=== PATIENT | male | born 1970 ===

== ENCOUNTER 2017-01-30 09:32 | Observation (INO) | payer MEDICARE, OTHER ==
[2017-01-30 09:33] VITALS: BMI 44.4
--- NOTE | 2017-01-30 10:23 | C.PDOC ---
History Of Present Illness PMHx of diastolic CHF, hyperlipidemia, HTN, alcoholic cirrhosis, schizophrenia and PV SEEN 01/22 @ [facility] S/P HEAD INJURY DUE TO INTOX. NEG MAXFAC AND HEAD CT. Time Seen by Provider: 01/30/17 10:22 Chief Complaint (Nursing): Eye Problem Past Medical History Vital Signs: Last Vital Signs Temp 98.5 F 01/30/17 09:37 Pulse 86 01/30/17 09:37 Resp 18 01/30/17 09:37 BP 126/94 H 01/30/17 09:37 Pulse Ox 98 01/30/17 10:23 - Medical History PMH: Anxiety, Asthma, Bipolar Disorder, CHF, COPD (ASTHMA), Depression, HTN, Schizophrenia Denies: Alzheimer's Disease, Arthritis, Atrial Fibrillation, Bronchitis, Cardia Arrhythmia, Dementia, Emphysema, Hypercholesterolemia, Hypothyroidism, Migraine, Mitral Valve Prolapse, Multiple Sclerosis, Parkinson's Disease, Peripheral Edema, Pneumonia, Pulmonary Embolism, Chronic Kidney Disease, Rheumatoid Arthritis, Seizures, Sleep Apnea, TIA Surgical History: Appendectomy Denies: Pacemaker - [facility] Procedures FLUOROSCOPY OF RIGHT JUGULAR VEINS, GUIDANCE (11/14/15) INSERT INFUSION DEV IN R INT JUGULAR VEIN, PERC (11/14/15) REMOVAL OF INFUSION DEVICE FROM UPPER VEIN, SUPERVISOR WARPING DEPARTMENT APPROACH (11/14/15) Family History: States: Unknown Family Hx - Social History Hx Tobacco Use: No Hx Alcohol Use: Yes Hx Substance Use: No - Immunization History Hx Tetanus Toxoid Vaccination: No Hx Influenza Vaccination: Yes Hx Pneumococcal Vaccination: No ED Course And Treatment O2 Sat by Pulse Oximetry: 98
[2017-01-30 10:55] LABS: BASO % 0.9 % (0.0-2.0); EOS # 0.1 K/uL (0.0-0.7); EOS % 1.7 % (0.0-4.0); HEMATOCRIT 39.3 % (35.0-51.0); LYMPH # 0.8 K/uL (1.0-4.3); LYMPH % 24.8 % (20.0-40.0); MEAN CELL VOLUME 88.5 fL (80.0-94.0); MEAN CORPUSCULAR HEMOGLOBIN 29.8 pg (27.0-31.0); MEAN CORPUSCULAR HGB CONC 33.7 g/dL (33.0-37.0); MONO # 0.9 K/uL (0.0-0.8); MONO % 25.8 % (0.0-10.0); NRBC % 0.1 % (0.0-2.0); PLATELET COUNT 114 K/uL (130-400); RED CELL DISTRIBUTION WIDTH 18.3 % (11.5-14.5); WHITE BLOOD COUNT 3.3 K/uL (4.8-10.8)
[2017-01-30 11:03] LABS: CHLORIDE 86 mmol/L (98-107); SODIUM 129 mmol/L (132-148)
[2017-01-30 11:05] LABS: GFR AFRICAN-AMERICAN > 60
[2017-01-30 11:06] LABS: ALB/GLOB RATIO 0.7 (1.0-2.1); ALKALINE PHOSPHATASE 164 U/L (38-126); ALT/SGPT 42 U/L (21-72); AST/SGOT 134 U/L (17-59); BILIRUBIN,TOTAL 4.8 mg/dL (0.2-1.3); BLOOD UREA NITROGEN 10 mg/dL (9-20); CARBON DIOXIDE 32 mmol/L (22-30); GLUCOSE,RANDOM 93 mg/dL (75-110); TOTAL PROTEIN 8.7 g/dL (6.3-8.3)
[2017-01-30 11:07] LABS: CALCIUM 7.6 mg/dl (8.6-10.4)
[2017-01-30 11:17] LABS: POTASSIUM 2.5 mmol/L (3.6-5.2)
[2017-01-30 11:26] LABS: EOSINOPHIL 1 % (0-4); NEUTROPHIL 45 % (50-75); TOTAL CELLS COUNTED 100
[2017-01-30 11:36] VITALS: RESP 20
--- NOTE | 2017-01-30 12:10 | CT ---
PROCEDURE: CT HEAD WITHOUT CONTRAST. HISTORY: r/o ICH COMPARISON: Comparison made with CT scan brain and MRI brain both dated 01/20/2016 TECHNIQUE: Axial computed tomography images were obtained through the head/brain without intravenous contrast. Radiation dose: Total exam DLP = 854.1 mGy-cm. This CT exam was performed using one or more of the following dose reduction techniques: Automated exposure control, adjustment of the mA and/or kV according to patient size, and/or use of iterative reconstruction technique. FINDINGS: HEMORRHAGE: No acute parenchymal, subarachnoid or extra-axial hemorrhage. BRAIN: Previously noted mild chronic periventricular white matter ischemic changes with multiple small chronic appearing lacunar type infarcts scattered about the deep and subcortical white matter both cerebral hemispheres less well seen on this exam as compared to high-resolution MRI. More discrete focus low attenuation left parietal subcortical white matter consistent with a dilated perivascular space. Mild vascular calcifications. Minor generalized volume loss VENTRICLES: No obstructive hydrocephalus. CALVARIUM: No acute calvarial abnormalities PARANASAL SINUSES: Unremarkable as visualized. No significant inflammatory changes. MASTOID AIR CELLS: Unremarkable as visualized. No inflammatory changes. OTHER FINDINGS: None. IMPRESSION: No acute intracranial hemorrhage. Minor chronic white matter ischemic changes less well seen on this study compared to high-resolution MRI. Note that small hyperacute infarct may be missed on initial CT imaging in the
[2017-01-30 12:27] LABS: CHLORIDE 85 mmol/L (98-107); SODIUM 128 mmol/L (132-148)
[2017-01-30 12:29] LABS: AST/SGOT 135 U/L (17-59); BILIRUBIN,TOTAL 4.8 mg/dL (0.2-1.3); CARBON DIOXIDE 33 mmol/L (22-30); GFR AFRICAN-AMERICAN > 60
[2017-01-30 12:30] LABS: ALB/GLOB RATIO 0.7 (1.0-2.1); ALKALINE PHOSPHATASE 167 U/L (38-126); ALT/SGPT 40 U/L (21-72); BLOOD UREA NITROGEN 10 mg/dL (9-20); CALCIUM 7.7 mg/dl (8.6-10.4); GLUCOSE,RANDOM 89 mg/dL (75-110); MAGNESIUM 1.4 mg/dL (1.6-2.3); PHOSPHOROUS 2.9 mg/dL (2.5-4.5); POTASSIUM 2.2 mmol/L (3.6-5.2); TOTAL PROTEIN 8.7 g/dL (6.3-8.3)
[2017-01-30] MEDS ORDERED: Potassium Chloride 20 mEq/15 ml LIQ UD PO STA (12:34)
[2017-01-30] MEDS ORDERED: Magnesium Sulfate 1 gm in D5W 1 GM/100 ML BAG IVPB ONE ×3 (12:49→20:57)
[2017-01-30] MEDS ORDERED: Potassium Chloride 20 mEq ER Tab PO ONE ×3 (12:49→22:15)
[2017-01-30] MEDS: Magnesium Sulfate 1 gm in D5W 1 GM/100 ML BAG IVPB SCH ×2 (12:55→13:51)
--- NOTE | 2017-01-30 13:10 | C.PDOC ---
History Of Present Illness 46-year-old male, PMHx includes Anxiety, Asthma, Bipolar Disorder, CHF, COPD ( ASTHMA), Depression, Hypertension, Schizophrenia, and EtOH absuse, presents to the emergency department with complaints of an episode of blindness. Patient states he woke up at 4:00 this morning, and wasn't able to see for approximately two minutes, after which his sight returned spontaneously. Denies nausea/vomiting, headaches, dizziness, speech changes, weakness, numbness, or any other associated symptoms. No other complaints at this time. Time Seen by Provider: 01/30/17 10:22 Chief Complaint (Nursing): Eye Problem History Per: Patient History/Exam Limitations: no limitations Onset/Duration Of Symptoms: Hrs Current Symptoms Are (Timing): Better Past Medical History Reviewed: Historical Data, Nursing Documentation, Vital Signs Vital Signs: Last Vital Signs Temp 98.6 F 01/30/17 15:14 Pulse 79 01/30/17 15:14 Resp 20 01/30/17 15:14 BP 95/56 L 01/30/17 15:14 Pulse Ox 97 01/30/17 15:14 - Medical History PMH: Anxiety, Asthma, Bipolar Disorder, CHF, COPD (ASTHMA), Depression, HTN, Schizophrenia Surgical History: Appendectomy Denies: Pacemaker - [facility] Procedures FLUOROSCOPY OF RIGHT JUGULAR VEINS, GUIDANCE (11/14/15) INSERT INFUSION DEV IN R INT JUGULAR VEIN, PERC (11/14/15) REMOVAL OF INFUSION DEVICE FROM UPPER VEIN, DIRECTOR OF DIAGNOSTIC IMAGING APPROACH (11/14/15) Family History: States: No Known Family Hx - Social History Hx Tobacco Use: No Hx Alcohol Use: Yes Hx Substance Use: No - Immunization History Hx Tetanus Toxoid Vaccination: No Hx Influenza Vaccination: Yes Hx Pneumococcal Vaccination: No Review Of Systems Except As Marked, All Systems Reviewed And Found Negative. Constitutional: Negative for: Fever, Chills Eyes: Positive for: Vision Change (resolved) Cardiovascular: Negative for: Chest Pain, Palpitations Respiratory: Negative for: Cough, Shortness of Breath Gastrointestinal: Negative for: Nausea, Vomiting Musculoskeletal: Negative for: Back Pain Skin: Negative for: Rash Neurological: Negative for: Weakness, Numbness, Headache, Dizziness Physical Exam - Physical Exam Appears: Non-toxic, No Acute Distress Skin: Warm, Dry, No Rash Head: Atraumatic, Normacephalic Eye(s): bilateral: Normal Inspection, PERRL, EOMI Nose: Normal Oral Mucosa: Moist Lips: Normal Appearing Neck: Normal ROM Cardiovascular: Rhythm Regular, No Murmur Respiratory: No Accessory Muscle Use Extremity: Normal ROM Neurological/Psych: Oriented x3, Normal Speech, Normal Cognition, Normal Cranial Nerves, Normal Motor, Normal Sensation, Other (No focal deficit) ED Course And Treatment - Laboratory Results Result Diagrams: 01/30/17 10:52 01/30/17 12:00 ECG: Interpreted By Me, Viewed By Me ECG Interpretation: No Acute Changes Interpretation Of ECst degree AV block w/ left atrial enlargement. Rate From EC O2 Sat by Pulse Oximetry: 97 Medical Decision Making Medical Decision Making: Impression 46y/o M with an episode of eyesight loss x2 mins this morning. Now resolved. No focal deficit. Plan: * CT Head * EKG * CMP, Mag, Phos, Trop * CBC * Mag Sulfate, K-Chloride * Reassess and Disposition Progress: Patients repeat blood work reveals a low Potassium (2.2); patient has a hx of low Mag and K in past with admissions. Disposition - Disposition Disposition: HOSPITALIZED Disposition Time: 13:20 Condition: STABLE - Clinical Impression Clinical Impression: Hypokalemia, Hypomagnesemia - Scribe Statement The provider has reviewed the documentation as recorded by the Shanna Cordoba All medical record entries made by the Scribe were at my direction and personally dictated by me. I have reviewed the chart and agree that the record accurately reflects my personal performance of the history, physical exam, medical decision making, and the department course for this patient. I have also personally directed, reviewed, and agree with the discharge instructions and disposition.
--- NOTE | 2017-01-30 13:48 | CP.PCM.HP ---
<Carolyn Quach - Last Filed: 01/30/17 17:37> History of Present Illness - History of Present Illness History of Present Illness: Medicine Note for Dr. Rosado CC: temporary loss of vision HPI: 46M with PMHx (as per EMR) HTN, HLD, CHF, HLD, and Alcoholic Cirrhosis presents to the ED complaining of temporary loss of vision. Patient reports he was drinking alcohol 2 weeks ago when he fell forward. He had abrasions of his face, hands, and knees. Patient was seen in [place] where Head CT was negative and he had his lip laceration sutured. Patient reports last night he got up to use the bathroom, when he had 3 separate episodes of vision loss, each lasting 15-20 minutes. He had complete vision loss, he explained it "almost if I had both my hands covering my eyes, complete darkness". During these episodes the patient remained seated. Denied any headache, loss of consciousness, dizziness, syncope, chest pain, or any other symptoms during these episodes. Shortly between each episode, he regained complete vision. This has never happened to him before. He admits to wearing prescription glasses, however he does not wear them currently due to losing them. Denied fever, chills, headache, any head trauma, jaw pain, SOB, chest pain, abdominal pain, n/v/d/c, or urinary symptoms. PMHx: As per EMR, HTN, HLD, CHF, HLD Alcoholic Cirrhosis PSHx: Appendectomy Meds: Patient does not know the names of his medications All: NKDA SHx: Denied smoking, admits to socially drinking, denied illicit drug use FHx: Unremarkable Present on Admission - Present on Admission Any Indicators Present on Admission: No Past Patient History - Infectious Disease Hx of Infectious Diseases: None - Tetanus Immunizations Tetanus Immunization: Unknown - Past Medical History & Family History Past Medical History?: Yes - Past Social History Smoking Status: Current Some Days Smoker - CARDIAC Hx Congestive Heart Failure: Yes Hx Hypertension: Yes Hx Pacemaker: No - PULMONARY Hx Asthma: Yes Hx Chronic Obstructive Pulmonary Disease (COPD): Yes (ASTHMA) - NEUROLOGICAL Hx Alzheimer's Disease: No Hx Dementia: No Hx Migraine: No Hx Multiple Sclerosis: No Hx Parkinson's Disease: No Hx Seizures: No Hx Transient Ischemic Attacks (TIA): No - HEENT Hx HEENT Problems: No - RENAL Hx Chronic Kidney Disease: No - ENDOCRINE/METABOLIC Hx Hypothyroidism: No - HEMATOLOGICAL/ONCOLOGICAL Hx Blood Disorders: No - INTEGUMENTARY Hx Dermatological Problems: No - MUSCULOSKELETAL/RHEUMATOLOGICAL Hx Arthritis: No Hx Rheumatoid Arthritis: No - GASTROINTESTINAL Hx Esophageal Varices: Yes - GENITOURINARY/GYNECOLOGICAL Hx Genitourinary Disorders: No - PSYCHIATRIC Hx Anxiety: Yes Hx Bipolar Disorder: Yes Hx Depression: Yes Hx Schizophrenia: Yes Hx Substance Use: No - SURGICAL HISTORY Hx Appendectomy: Yes - ANESTHESIA Hx Anesthesia: Yes Meds Allergies/Adverse Reactions: Allergies Allergy/AdvReac Type Severity Reaction Status Date / Time No Known Allergies Allergy Verified 10/20/16 09:10 Physical Exam - Constitutional Appears: No Acute Distress - Head Exam Head Exam: NORMAL INSPECTION, NORMOCEPHALIC - Eye Exam Eye Exam: Scleral icterus Pupil Exam: NORMAL ACCOMODATION, PERRL - Respiratory Exam Respiratory Exam: Clear to Auscultation Bilateral, NORMAL BREATHING PATTERN. absent: Rales, Rhonchi, Wheezes - Cardiovascular Exam Cardiovascular Exam: REGULAR RHYTHM, RRR, +S1, +S2 - GI/Abdominal Exam GI & Abdominal Exam: Distended, Normal Bowel Sounds, Organomegaly, Soft. absent : Tenderness - Extremities Exam Extremities exam: Positive for: pedal edema, tenderness Additional comments: PVD bilaterally - Neurological Exam Neurological exam: Alert, Oriented x3 - Skin Skin Exam: Dry, Intact, Normal Color, Warm Results - Vital Signs Recent Vital Signs: Last Vital Signs Temp 98.5 F 01/30/17 09:37 Pulse 87 01/30/17 12:57 Resp 20 01/30/17 12:57 BP 113/61 01/30/17 12:57 Pulse Ox 97 01/30/17 13:35 - Labs Result Diagrams: 01/30/17 10:52 01/30/17 12:00 Assessment & Plan - Assessment and Plan (Free Text) Assessment: 46M with PMHx (as per EMR) HTN, HLD, CHF, HLD, and Alcoholic Cirrhosis presents to the ED complaining of temporary loss of vision. Plan: Blurry/ Temporary Loss of Vision * Head CT w/o Contrast: No acute intracranial hemorrhage. Minor chronic white matter ischemic changes less well seen on this study compared to high- resolution MRI. Note that small hyperacute infarct may be missed on initial CT imaging * Carotid Dopplers ---> pending results * Neurology, Dr. Larson consulted - help appreciated * Opthamology, Dr. Rehman consulted- help appreciated Electrolyte Imbalances * Ma.4 * K+: 2.2 on admission * Patient was given Mag Sulfate IV x2 bags, KDur 40 mg PO and KCL 30 units IV in the ED. An additional KDur 20meq PO was given. * EKG: Prolong QTc prolongation, continue to monitor closely * F/U BMP @ 8pm tonight Hx of Alcohol Abuse * Serum Alcohol: pending * Ativan 1mg IVP Q6H PRN, Thiamine, folic acid, MV daily * F/U UDS Hx Liver Cirrhosis * Elevated T.Bili: 4.8 * Platelets: 114 * Elevated AST 135 * F/U Hepatitis panel, HIV, PT, PTT, INR * F/U peripheral smear to rule out TTP PVD * Restarted Cilostazol 100mg PO BID * Bilateral venous and arterial dopplers ordered ---> pending results Hx CHF * Last ECHO 10/2015: EF 60% Hx HTN * 113/61 when seen in the ED * Hold BP meds * Continue to monitor Prophylactic Measures * GI: Protonix 40mg PO daily * DVT PPX: Contraindications for SCDs due to PVD and VTE due to thrombocytopenia * Heart Healthy Diet DW Dr. Rosado, Main [facility], PGY-1 <Shakira Rosado V - Last Filed: 01/30/17 20:55> Results - Vital Signs Recent Vital Signs: Last Vital Signs Temp 98.6 F 01/30/17 15:14 Pulse 79 01/30/17 15:14 Resp 20 01/30/17 15:14 BP 95/56 L 01/30/17 15:14 Pulse Ox 97 01/30/17 18:20 - Labs Result Diagrams: 01/30/17 10:52 01/30/17 12:00 Labs: Laboratory Results - last 24 hr 01/30/17 17:30 Alcohol, Quantitative < 10 Attending/Attestation - Attestation I have personally seen and examined this patient.: Yes I have fully participated in the care of the patient.: Yes I have reviewed all pertinent clinical information: Yes Notes (Text): Patient seen, examined and case discussed with day-time resident. Patient seen in [facility] Bed 2 in Emergency Room. Patient reporting main complaint of transient vision loss overnight, which he reports had resolved but is his first time. Patient reports he uses glasses normally but he lost them. Patient reports last alcoholic drink was this morning. Patient denies nausea, denies vomitting, denies abdominal pain. Patient denies shortness of breathe, and denies cough. Patient reports he is on a water pill and his legs are swollen. Discussed admitting orders with day-time resident. Per review of EMR, patient has history of liver cirrhosis, portal hypertension, and splenomegaly, peripheral vascular disease (on aspirin and pletal), hx of hypertension, diastolic CHF, hypertension, alcohol abuse/withdrawal, and schizophrenia. Assessment/Plan 1) Blurry/ Temporary Loss of Vision * Head CT w/o Contrast: No acute intracranial hemorrhage. Minor chronic white matter ischemic changes less well seen on this study compared to high- resolution MRI. Note that small hyperacute infarct may be missed on initial CT imaging * Carotid Dopplers ---> pending results * Neurology, Dr. Larson consulted - help appreciated * Opthamology, Dr. Rehman consulted- help appreciated 2) Electrolyte Imbalances * Ma.4 * K+: 2.2 on admission * Patient was given Mag Sulfate IV x2 bags, KDur 40 mg PO and KCL 30 units IV in the ED. An additional KDur 20meq PO was given. * EKG: Prolong QTc prolongation (520), continue to monitor closely * F/U BMP @ 8pm tonight and replete * Patient previously on diuretics 3) Hx of Alcohol Abuse * Serum Alcohol: <10 * Ativan 1mg IVP Q4H PRN symptoms of alcohol abuse, Thiamine, folic acid, MV daily * F/U UDS 4) Hx Liver Cirrhosis * Elevated T.Bili: 4.8 * Platelets: 114 * Elevated AST 135 * F/U Hepatitis panel, HIV, PT, PTT, INR * F/U peripheral smear-->patient noted to have thrombocytopenia in prior hospitalizations due to bone marrow suppression due to alcohol abuse; low suspicion for TTP (no altered mental status, no renal failure, no fever) 5) PVD * Held Aspirin secondary to thrombocytopenia * Restarted Cilostazol 100mg PO BID * Bilateral venous and arterial dopplers ordered ---> pending results * Contraindications to SCDS secondary to PVD 6) Chronic Diastolic Congestive Heart Failure * Last ECHO 10/2015: EF 60% * Off diuretics given hypokalemia/hypomag * Aspirin held secondary to thrombocytopenia * Statin secondary to elevated LFTs * Beta-marvin/calcium marvin held secondary to borderline hypotension * Daily weights * Intake and output 7) Hx of HTN * 113/61 when seen in the ED * Hold BP meds * Continue to monitor * On IV fluids * In prior admission in 2016, noted to be on Midodrine 8) Prophylactic Measures * GI: Protonix 40mg PO daily * DVT PPX: Contraindications for SCDs due to PVD and VTE due to thrombocytopenia * Heart Healthy Diet
[2017-01-30] MEDS ORDERED: Sodium Chloride 0.9% 1,000 ML IV SCH (15:00)
[2017-01-30] MEDS ORDERED: POTASSIUM CH IV SCH (15:56)
[2017-01-30] MEDS ORDERED: D5W IV SCH (15:56)
[2017-01-30] MEDS ORDERED: SODIUM CHLORIDE IV SCH (15:56)
[2017-01-30] MEDS: Cilostazol 100 mg Tab UD PO SCH (17:59)
[2017-01-30] MEDS: Potassium Ch 20mEq in D5-1/2NS 1,000 ML IV SCH (18:01)
[2017-01-30 20:50] LABS: RBC URINE < 1 /hpf (0-3); URINE BILIRUBIN NEGATIVE (NEGATIVE); URINE BLOOD NEGATIVE (NEGATIVE); URINE COLOR Yellow (YELLOW); URINE GLUCOSE (UA) NORMAL (Normal); URINE KETONE NEGATIVE (NEGATIVE); URINE LEUKOCYTE ESTERASE NEG Leu/uL (Negative); URINE PROTEIN NEGATIVE (NEGATIVE); WBC URINE < 1 /hpf (0-5)
[2017-01-30 20:51] LABS: CHLORIDE 89 mmol/L (98-107); SODIUM 129 mmol/L (132-148)
[2017-01-30 20:52] LABS: POTASSIUM 2.8 mmol/L (3.6-5.2)
[2017-01-30 20:54] LABS: GFR AFRICAN-AMERICAN > 60
[2017-01-30 20:55] LABS: BLOOD UREA NITROGEN 9 mg/dL (9-20); CALCIUM 7.7 mg/dl (8.6-10.4); CARBON DIOXIDE 33 mmol/L (22-30); GLUCOSE,RANDOM 121 mg/dL (75-110); MAGNESIUM 1.8 mg/dL (1.6-2.3)
[2017-01-30 20:56] LABS: INR 1.5
[2017-01-31 02:54] LABS: CHLORIDE 91 mmol/L (98-107); SODIUM 128 mmol/L (132-148)
[2017-01-31 02:57] LABS: BLOOD UREA NITROGEN 8 mg/dL (9-20); CARBON DIOXIDE 30 mmol/L (22-30); GFR AFRICAN-AMERICAN > 60
[2017-01-31 02:58] LABS: CALCIUM 7.7 mg/dl (8.6-10.4); GLUCOSE,RANDOM 91 mg/dL (75-110); MAGNESIUM 1.8 mg/dL (1.6-2.3)
[2017-01-31] MEDS ORDERED: Potassium Chloride 20 mEq ER Tab PO ONE ×4 (03:36→21:38)
[2017-01-31] MEDS: Pantoprazole 40 mg EC Tab PO SCH (09:52)
[2017-01-31] MEDS: Multiple Vitamins Tab PO SCH (09:52)
[2017-01-31] MEDS: Cilostazol 100 mg Tab UD PO SCH ×2 (09:52→17:47)
[2017-01-31 11:10] LABS: BASO % 0.8 % (0.0-2.0); EOS # 0.1 K/uL (0.0-0.7); EOS % 2.6 % (0.0-4.0); HEMATOCRIT 36.8 % (35.0-51.0); LYMPH # 0.9 K/uL (1.0-4.3); LYMPH % 35.1 % (20.0-40.0); MEAN CORPUSCULAR HEMOGLOBIN 29.4 pg (27.0-31.0); MEAN CORPUSCULAR HGB CONC 32.7 g/dL (33.0-37.0); MEAN PLATELET VOLUME 8.2 fL (7.2-11.7); MONO # 0.7 K/uL (0.0-0.8); MONO % 28.2 % (0.0-10.0); NRBC % 0.1 % (0.0-2.0); PLATELET COUNT 116 K/uL (130-400); WHITE BLOOD COUNT 2.6 K/uL (4.8-10.8)
[2017-01-31 11:23] LABS: CHLORIDE 91 mmol/L (98-107)
[2017-01-31 11:24] LABS: POTASSIUM 3.1 mmol/L (3.6-5.2); SODIUM 130 mmol/L (132-148)
[2017-01-31 11:26] LABS: ALB/GLOB RATIO 0.5 (1.0-2.1); ALKALINE PHOSPHATASE 136 U/L (38-126); AST/SGOT 125 U/L (17-59); BILIRUBIN,TOTAL 3.5 mg/dL (0.2-1.3); BLOOD UREA NITROGEN 7 mg/dL (9-20); CARBON DIOXIDE 32 mmol/L (22-30); CHOLESTEROL 139 mg/dL (0-199); GFR AFRICAN-AMERICAN > 60; TOTAL PROTEIN 8.5 g/dL (6.3-8.3)
[2017-01-31 11:27] LABS: ALT/SGPT 49 U/L (21-72); CALCIUM 8.2 mg/dl (8.6-10.4); GLUCOSE,RANDOM 89 mg/dL (75-110); MAGNESIUM 1.5 mg/dL (1.6-2.3); PHOSPHOROUS 2.8 mg/dL (2.5-4.5)
[2017-01-31 12:02] LABS: EOSINOPHIL 2 % (0-4); NEUTROPHIL 32 % (50-75); TOTAL CELLS COUNTED 100
[2017-01-31] MEDS ORDERED: Potassium Chloride 20 mEq ER Tab PO STA ×2 (12:35→14:30)
[2017-01-31] MEDS: Magnesium Sulfate 1 gm in D5W 1 GM/100 ML BAG IVPB SCH ×2 (12:49→14:08)
[2017-01-31] MEDS: Potassium Ch 20mEq in D5-1/2NS 1,000 ML IV SCH ×2 (12:50→22:25)
--- NOTE | 2017-01-31 12:55 | CP.PCM.PN ---
<Elizabeth Reyes DO - Last Filed: 01/31/17 13:00> Subjective - Date & Time of Evaluation Date of Evaluation: 01/31/17 Time of Evaluation: 10:00 - Subjective Subjective: PGY1 Progress note for Dr. Rosado Patient seen and examined. Patient states he feels much better today. 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 Objective - Vital Signs/Intake and Output Vital Signs (last 24 hours): Temp Pulse Resp BP Pulse Ox 97.7 F 85 20 121/77 97 01/31/17 07:35 01/31/17 08:30 01/31/17 07:35 01/31/17 07:35 01/31/17 07:35 Intake and Output: 01/31/17 01/31/17 06:59 18:59 Intake Total 500 Output Total 850 Balance -350 - Medications Medications: Current Medications Cilostazol (Pletal) 100 mg PO BID [facility] Last Admin: 01/31/17 09:52 Dose: 100 mg Folic Acid (Folic Acid) 1 mg PO DAILY [facility] Last Admin: 01/31/17 09:52 Dose: 1 mg Potassium Chloride/Dextrose/Sod Cl (Potassium Chl 20 Meq In D5-1/2ns) 1,000 mls @ 100 mls/hr IV .Q10H [facility] Last Admin: 01/31/17 12:50 Dose: Not Given Magnesium Sulfate/Dextrose (Magnesium Sulfate 1 Gm/100 Ml D5w) 1 gm in 100 mls @ 100 mls/hr IVPB Q1H [facility] Stop: 01/31/17 14:44 Last Admin: 01/31/17 12:49 Dose: 100 mls/hr Lorazepam (Ativan) 1 mg IVP Q4H PRN PRN Reason: Symptoms of alcohol withdrawl Multivitamins (Hexavitamin) 1 tab PO DAILY [facility] Last Admin: 01/31/17 09:52 Dose: 1 tab Pantoprazole Sodium (Protonix Ec Tab) 40 mg PO DAILY [facility] Last Admin: 01/31/17 09:52 Dose: 40 mg Pneumococcal Polyvalent Vaccine (Pneumovax 23 Vaccine) 0.5 ml IM .ONCE ONE Stop: 02/02/17 10:01 Thiamine HCl (Vitamin B1 Tab) 100 mg PO DAILY [facility] Last Admin: 01/31/17 09:52 Dose: 100 mg - Labs Labs: 01/31/17 10:59 01/31/17 10:59 PT 16.8 SECONDS (9.7-12.2) H 01/30/17 20:39 INR 1.5 01/30/17 20:39 APTT 36 SECONDS (21-34) H 01/30/17 20:39 - Constitutional Appears: Non-toxic, No Acute Distress - Head Exam Head Exam: ATRAUMATIC, NORMOCEPHALIC - Eye Exam Eye Exam: EOMI - ENT Exam ENT Exam: Mucous Membranes Moist - Respiratory Exam Respiratory Exam: Clear to Ausculation Bilateral - Cardiovascular Exam Cardiovascular Exam: +S1, +S2 - GI/Abdominal Exam GI & Abdominal Exam: Soft, Normal Bowel Sounds. absent: Tenderness - Extremities Exam Additional comments: venous stasis color changes to bilateral lower extremities, DP pulses bilaterally bilateral lower extremity skin ulceration - Neurological Exam Neurological Exam: Alert, Awake - Psychiatric Exam Psychiatric exam: Normal Affect - Skin Skin Exam: Warm Assessment and Plan - Assessment and Plan (Free Text) Assessment: Blurry/ Temporary Loss of Vision * Head CT w/o Contrast: No acute intracranial hemorrhage. Minor chronic white matter ischemic changes less well seen on this study compared to high- resolution MRI. Note that small hyperacute infarct may be missed on initial CT imaging * Carotid Dopplers with mild disease bilaterally * Neurology, Dr. Delatorre consulted - help appreciated * Opthamology, Dr. Rehman consulted- help appreciated Electrolyte Imbalances * Magnesium and potassium low, repleted again with repeat BMP ordered for this evening * EKG: Prolong QTc prolongation, continue to monitor closely Hx of Alcohol Abuse * Serum Alcohol <10 * Ativan 1mg IVP Q4H PRN, Thiamine, folic acid, MV daily * UDS negative Hx Liver Cirrhosis * Elevated T.Bili: 4.8 * Platelets: 114 * Elevated AST 135 * Hepatitis panel negative * HIV negative * PT 16.8, PTT 36, INR 1.5 * F/U peripheral smear to rule out TTP PVD * Restarted Cilostazol 100mg PO BID * Bilateral venous dopplers negative for DVT * STEPHANE 1.23/ 1.22 Hx CHF * Last ECHO 10/2015: EF 60% Hx HTN * 113/61 when seen in the ED * Hold BP meds * Continue to monitor Lower extremity ulcer * local wound care Prophylactic Measures * GI: Protonix 40mg PO daily * DVT PPX: Contraindications for SCDs due to PVD and VTE due to thrombocytopenia * Heart Healthy Diet <Shakira Rosado V - Last Filed: 01/31/17 17:06> Objective - Vital Signs/Intake and Output Vital Signs (last 24 hours): Temp Pulse Resp BP Pulse Ox 97.7 F 85 20 121/77 97 01/31/17 07:35 01/31/17 08:30 01/31/17 07:35 01/31/17 07:35 01/31/17 07:35 Intake and Output: 01/31/17 01/31/17 06:59 18:59 Intake Total 500 815 Output Total 850 Balance -350 815 - Medications Medications: Current Medications Aspirin (Aspirin Chewable) 81 mg PO DAILY [facility] Cilostazol (Pletal) 100 mg PO BID [facility] Last Admin: 01/31/17 09:52 Dose: 100 mg Folic Acid (Folic Acid) 1 mg PO DAILY [facility] Last Admin: 01/31/17 09:52 Dose: 1 mg Potassium Chloride/Dextrose/Sod Cl (Potassium Chl 20 Meq In D5-1/2ns) 1,000 mls @ 100 mls/hr IV .Q10H [facility] Last Admin: 01/31/17 12:50 Dose: Not Given Lorazepam (Ativan) 1 mg IVP Q4H PRN PRN Reason: Symptoms of alcohol withdrawl Multivitamins (Hexavitamin) 1 tab PO DAILY [facility] Last Admin: 01/31/17 09:52 Dose: 1 tab Pantoprazole Sodium (Protonix Ec Tab) 40 mg PO DAILY [facility] Last Admin: 01/31/17 09:52 Dose: 40 mg Pneumococcal Polyvalent Vaccine (Pneumovax 23 Vaccine) 0.5 ml IM .ONCE ONE Stop: 02/02/17 10:01 Rosuvastatin Calcium (Crestor) 2.5 mg PO [facility] Thiamine HCl (Vitamin B1 Tab) 100 mg PO DAILY [facility] Last Admin: 01/31/17 09:52 Dose: 100 mg - Labs Labs: 01/31/17 10:59 01/31/17 10:59 PT 16.8 SECONDS (9.7-12.2) H 01/30/17 20:39 INR 1.5 01/30/17 20:39 APTT 36 SECONDS (21-34) H 01/30/17 20:39 Attending/Attestation - Attestation I have personally seen and examined this patient.: Yes I have fully participated in the care of the patient.: Yes I have reviewed all pertinent clinical information, including history, physical exam and plan: Yes Notes (Text): Patient seen, examined and case discussed with day-time resident. Patient seen this morning. Patient reports this morning he had blurry vision around 4am, but reports he is seeing okay presently. Patient's electrolytes being closely monitored and repleted. Neurology on the case (Dr. Delatorre) on the case help appreciated Patient started on Aspirin, low dose statin (will need to monitor LFTs), ABIs normal, and venous dopplers negative for DVT. Patient further imaging in echocardiogram and MRI/MRA. Assessment/Plan 1) Blurry/ Temporary Loss of Vision * Head CT w/o Contrast: No acute intracranial hemorrhage. Minor chronic white matter ischemic changes less well seen on this study compared to high- resolution MRI. Note that small hyperacute infarct may be missed on initial CT imaging * Carotid Dopplers ---> pending results * Neurology, Dr. Delatorre consulted - help appreciated * Opthamology, Dr. Rehman consulted- help appreciated * Brain MRI (01/31/17): no evidence of acute infarct or acute pathology in the brain, no significant interval change since previous exam * Neck MRA (01/31/17): suboptimal study due to patient's motion. No evidence of significant stenosis at the interval cartoid arteries. Small size left vertebral artery * Head MRA (01/31/17): mild diffuse irregularity seen in the visualized intracranial arteries suggestive of atherosclerotic disease. No evidence of focus significant stenosis or occlusion. Distal left vertebral artery is not visualized 2) Electrolyte Imbalances * Ma.5 * K+: 3.1 * EKG: Prolong QTc prolongation (520) * F/U BMP @ 6pm tonight and replete * Patient previously on diuretics 3) Hx of Alcohol Abuse * Serum Alcohol: <10 * Ativan 1mg IVP Q4H PRN symptoms of alcohol abuse, Thiamine, folic acid, MVI daily * UDS negative 4) Hx Liver Cirrhosis * Elevated T.Bili: 4.8 * Platelets: 114 * Elevated AST 135 * Hepatitis panel: negative HIV: negative, INR: 1.5 * F/U peripheral smear-->no abnormalities noted 5) PVD * Aspirin 81mg PO daily * Restarted Cilostazol 100mg PO BID * Contraindications to SCDS secondary to PVD * STEPHANE: normal * Venous dopplers: negative 6) Chronic Diastolic Congestive Heart Failure * Last ECHO 10/2015: EF 60% * Off diuretics given hypokalemia/hypomag * Aspirin 81mg PO daily * Crestor 2.5mg PO qHS (will need to monitor LFTs) * Daily weights * Intake and output 7) Hx of HTN * 113/61 when seen in the ED * Hold BP meds * Continue to monitor * On IV fluids * In prior admission in 2015, noted to be on Midodrine 8) Prophylactic Measures * GI: Protonix 40mg PO daily * DVT PPX: Contraindications for SCDs due to PVD and VTE due to thrombocytopenia * Heart Healthy Diet * Aspirin 81mg PO daily
--- NOTE | 2017-01-31 13:06 | CARD ---
APPROVED REPORT EKG Measurement Heart [id number] <Conclusion> Sinus rhythm with premature atrial complexes Possible Left atrial enlargement Nonspecific ST and T wave abnormality Prolonged QT Abnormal ECG
--- NOTE | 2017-01-31 14:53 | CP.PCM.CON ---
History of Present Illness - History of Present Illness History of Present Illness: Mr. Loya is a 46-year-old right-handed man with a past medical history of HTN , HLD, CHF, HLD, and Alcoholic Cirrhosis who presented to the ED complaining of 3 recent episodes, each lasting about 15-20 minutes of complete loss of vision. He describes the episodes as darkening of his vision and states that he could not see anything. This has never happened before. He denied any focal weakness , sensory loss, loss of consciousness or changes in mental status/confusion. There is no associated chest pain, shortness of breath, headache or abdominal pain. Currently, his vision is back to normal. Review of Systems - Review of Systems All systems: reviewed and no additional remarkable complaints except Past Patient History - Infectious Disease Hx of Infectious Diseases: None - Tetanus Immunizations Tetanus Immunization: Unknown - Past Medical History & Family History Past Medical History?: Yes - Past Social History Smoking Status: Current Some Days Smoker - CARDIAC Hx Congestive Heart Failure: Yes Hx Hypertension: Yes Hx Pacemaker: No - PULMONARY Hx Asthma: Yes Hx Chronic Obstructive Pulmonary Disease (COPD): Yes (ASTHMA) - NEUROLOGICAL Hx Alzheimer's Disease: No Hx Dementia: No Hx Migraine: No Hx Multiple Sclerosis: No Hx Parkinson's Disease: No Hx Seizures: No Hx Transient Ischemic Attacks (TIA): No - HEENT Hx HEENT Problems: No - RENAL Hx Chronic Kidney Disease: No - ENDOCRINE/METABOLIC Hx Hypothyroidism: No - HEMATOLOGICAL/ONCOLOGICAL Hx Blood Disorders: No - INTEGUMENTARY Hx Dermatological Problems: No - MUSCULOSKELETAL/RHEUMATOLOGICAL Hx Arthritis: No Hx Rheumatoid Arthritis: No - GASTROINTESTINAL Hx Esophageal Varices: Yes - GENITOURINARY/GYNECOLOGICAL Hx Genitourinary Disorders: No - PSYCHIATRIC Hx Anxiety: Yes Hx Bipolar Disorder: Yes Hx Depression: Yes Hx Schizophrenia: Yes Hx Substance Use: No - SURGICAL HISTORY Hx Appendectomy: Yes - ANESTHESIA Hx Anesthesia: Yes Meds Allergies/Adverse Reactions: Allergies Allergy/AdvReac Type Severity Reaction Status Date / Time No Known Allergies Allergy Verified 10/20/16 09:10 - Medications Medications: Current Medications Cilostazol (Pletal) 100 mg PO BID [facility] Last Admin: 01/31/17 09:52 Dose: 100 mg Folic Acid (Folic Acid) 1 mg PO DAILY [facility] Last Admin: 01/31/17 09:52 Dose: 1 mg Potassium Chloride/Dextrose/Sod Cl (Potassium Chl 20 Meq In D5-1/2ns) 1,000 mls @ 100 mls/hr IV .Q10H [facility] Last Admin: 01/31/17 12:50 Dose: Not Given Lorazepam (Ativan) 1 mg IVP Q4H PRN PRN Reason: Symptoms of alcohol withdrawl Multivitamins (Hexavitamin) 1 tab PO DAILY [facility] Last Admin: 01/31/17 09:52 Dose: 1 tab Pantoprazole Sodium (Protonix Ec Tab) 40 mg PO DAILY [facility] Last Admin: 01/31/17 09:52 Dose: 40 mg Pneumococcal Polyvalent Vaccine (Pneumovax 23 Vaccine) 0.5 ml IM .ONCE ONE Stop: 02/02/17 10:01 Thiamine HCl (Vitamin B1 Tab) 100 mg PO DAILY [facility] Last Admin: 01/31/17 09:52 Dose: 100 mg Physical Exam - Constitutional Appears: Well - Head Exam Head Exam: ATRAUMATIC, NORMAL INSPECTION, NORMOCEPHALIC - Eye Exam Eye Exam: EOMI, Normal appearance, PERRL - ENT Exam ENT Exam: Mucous Membranes Moist, Normal Exam - Neck Exam Neck exam: Positive for: Normal Inspection - Respiratory Exam Respiratory Exam: Clear to Auscultation Bilateral, NORMAL BREATHING PATTERN - Cardiovascular Exam Cardiovascular Exam: REGULAR RHYTHM, +S1, +S2 - GI/Abdominal Exam GI & Abdominal Exam: Normal Bowel Sounds, Soft. absent: Tenderness - Rectal Exam Rectal Exam: Deferred - Extremities Exam Extremities exam: Positive for: normal inspection - Back Exam Back exam: NORMAL INSPECTION - Neurological Exam Neurological exam: Alert, CN II-XII Intact, Normal Gait, Oriented x3, Reflexes Normal Additional comments: Vision is normal to confrontation. No significant abnormalities on funduscopic exam. - Expanded Neurological Exam Expanded Patient oriented to: person, place, time Cranial nerves: EOM's Intact: Normal, Facial Palsey w/Forehead Movement: Normal , Facial Palsey w/o Forehead Movement: Normal, Facial Sensation: Normal, Gag Reflex: Normal, Nystagmus: Normal, Tongue Deviation: Normal Ataxia: No Cerebellar Function: Finger to Nose: Normal, Heel to [place]: Normal, Romberg: Normal Upper motor neuron: Babinski Sign: Normal Sensory exam: Lower Extremity 2 Point Discrimination: Normal, Lower Extremity Light Touch: Normal, Lower Extremity Pin Prick: Normal, Lower Extremity Temperature: Normal, Upper Extremity 2 Point Discrimination: Normal, Upper Extremity Light Touch: Normal, Upper Extremity Pin Prick: Normal, Upper Extremity Temperature: Normal Neuro motor strength exam: Left Upper Extremity: 5, Right Upper Extremity: 5, Left Lower Extremity: 5, Right Lower Extremity: 5 DTR: Achilles Tendon Left: 2+, Achilles Tendon Right: 2+, Bicep Left: 2+, Bicep Right: 2+, Brachioradialis Left: 2+, Brachioradialis Right: 2+, Patellar Left: 2 +, Patellar Right: 2+, Tricep Left: 2+, Tricep Right: 2+ Results - Vital Signs Recent Vital Signs: Last Vital Signs Temp 97.7 F 01/31/17 07:35 Pulse 85 01/31/17 08:30 Resp 20 01/31/17 07:35 BP 121/77 01/31/17 07:35 Pulse Ox 97 01/31/17 07:35 - Labs Result Diagrams: 01/31/17 10:59 01/31/17 10:59 Labs: Laboratory Results - last 24 hr 01/30/17 01/30/17 01/30/17 17:30 20:39 20:39 WBC RBC Hgb Hct MCV MCH MCHC RDW Plt Count MPV Neut % (Auto) Lymph % (Auto) [place] % (Auto) Eos % (Auto) Baso % (Auto) Neut # Lymph # [place] # Eos # Baso # Neutrophils % (Manual) Lymphocytes % (Manual) Monocytes % (Manual) Eosinophils % (Manual) Platelet Estimate RBC Morphology PT INR APTT Sodium Potassium Chloride Carbon Dioxide Anion Gap BUN Creatinine Est GFR ( Amer) Est GFR (Non-Af Amer) Random Glucose Hemoglobin A1c Calcium Phosphorus Magnesium Total Bilirubin AST ALT Alkaline Phosphatase Total Protein Albumin Globulin Albumin/Globulin Ratio Triglycerides Cholesterol LDL Cholesterol Direct HDL Cholesterol Urine Color Yellow Urine Clarity Clear Urine pH 8.0 Ur Specific [place] 1.006 Urine Protein Negative Urine Glucose (UA) Normal Urine Ketones Negative Urine Blood Negative Urine Nitrate Negative Urine Bilirubin Negative Urine Urobilinogen 2.0 Ur Leukocyte Esterase Neg Urine WBC (Auto) < 1 Urine RBC (Auto) < 1 Ur Squamous Epith Cells < 1 Urine Opiates Screen Negative Urine Methadone Screen Negative Ur Barbiturates Screen Negative Ur Phencyclidine Scrn Negative Ur Amphetamines Screen Negative U Benzodiazepines Scrn Negative U Oth Cocaine Metabols Negative U Cannabinoids Screen Negative Alcohol, Quantitative < 10 Hepatitis A IgM Ab Hep Bs Antigen Hep B Core IgM Ab Hepatitis C Antibody HIV 1&2 Antibody Screen 01/30/17 01/30/17 01/31/17 20:39 20:39 02:07 WBC RBC Hgb Hct MCV MCH MCHC RDW Plt Count MPV Neut % (Auto) Lymph % (Auto) [place] % (Auto) Eos % (Auto) Baso % (Auto) Neut # Lymph # [place] # Eos # Baso # Neutrophils % (Manual) Lymphocytes % (Manual) Monocytes % (Manual) Eosinophils % (Manual) Platelet Estimate RBC Morphology PT 16.8 H INR 1.5 APTT 36 H Sodium 129 L 128 L Potassium 2.8 L 3.0 L Chloride 89 L 91 L Carbon Dioxide 33 H 30 Anion Gap 10 10 BUN 9 8 L Creatinine 0.8 0.7 L Est GFR ( Amer) > 60 > 60 Est GFR (Non-Af Amer) > 60 > 60 Random Glucose 121 H 91 Hemoglobin A1c Calcium 7.7 L 7.7 L Phosphorus Magnesium 1.8 1.8 Total Bilirubin AST ALT Alkaline Phosphatase Total Protein Albumin Globulin Albumin/Globulin Ratio Triglycerides Cholesterol LDL Cholesterol Direct HDL Cholesterol Urine Color Urine Clarity Urine pH Ur Specific [place] Urine Protein Urine Glucose (UA) Urine Ketones Urine Blood Urine Nitrate Urine Bilirubin Urine Urobilinogen Ur Leukocyte Esterase Urine WBC (Auto) Urine RBC (Auto) Ur Squamous Epith Cells Urine Opiates Screen Urine Methadone Screen Ur Barbiturates Screen Ur Phencyclidine Scrn Ur Amphetamines Screen U Benzodiazepines Scrn U Oth Cocaine Metabols U Cannabinoids Screen Alcohol, Quantitative Hepatitis A IgM Ab Hep Bs Antigen Hep B Core IgM Ab Hepatitis C Antibody HIV 1&2 Antibody Screen 01/31/17 01/31/17 01/31/17 10:59 10:59 10:59 WBC 2.6 L RBC 4.09 L Hgb 12.0 Hct 36.8 MCV 90.0 MCH 29.4 MCHC 32.7 L RDW 19.0 H Plt Count 116 L MPV 8.2 Neut % (Auto) 33.3 L Lymph % (Auto) 35.1 [place] % (Auto) 28.2 H Eos % (Auto) 2.6 Baso % (Auto) 0.8 Neut # 0.9 L Lymph # 0.9 L [place] # 0.7 Eos # 0.1 Baso # 0.0 Neutrophils % (Manual) 32 L Lymphocytes % (Manual) 42 H Monocytes % (Manual) 24 H Eosinophils % (Manual) 2 Platelet Estimate Slightly decreased L RBC Morphology Normal PT INR APTT Sodium 130 L Potassium 3.1 L Chloride 91 L Carbon Dioxide 32 H Anion Gap 10 BUN 7 L Creatinine 0.8 Est GFR ( Amer) > 60 Est GFR (Non-Af Amer) > 60 Random Glucose 89 Hemoglobin A1c Calcium 8.2 L Phosphorus 2.8 Magnesium 1.5 L Total Bilirubin 3.5 H AST 125 H ALT 49 Alkaline Phosphatase 136 H Total Protein 8.5 H Albumin 3.0 L Globulin 5.5 H Albumin/Globulin Ratio 0.5 L Triglycerides 37 D Cholesterol 139 LDL Cholesterol Direct 80 HDL Cholesterol 41 Urine Color Urine Clarity Urine pH Ur Specific [place] Urine Protein Urine Glucose (UA) Urine Ketones Urine Blood Urine Nitrate Urine Bilirubin Urine Urobilinogen Ur Leukocyte Esterase Urine WBC (Auto) Urine RBC (Auto) Ur Squamous Epith Cells Urine Opiates Screen Urine Methadone Screen Ur Barbiturates Screen Ur Phencyclidine Scrn Ur Amphetamines Screen U Benzodiazepines Scrn U Oth Cocaine Metabols U Cannabinoids Screen Alcohol, Quantitative Hepatitis A IgM Ab Negative Hep Bs Antigen Negative Hep B Core IgM Ab Negative Hepatitis C Antibody Negative HIV 1&2 Antibody Screen 01/31/17 01/31/17 10:59 10:59 WBC RBC Hgb Hct MCV MCH MCHC RDW Plt Count MPV Neut % (Auto) Lymph % (Auto) [place] % (Auto) Eos % (Auto) Baso % (Auto) Neut # Lymph # [place] # Eos # Baso # Neutrophils % (Manual) Lymphocytes % (Manual) Monocytes % (Manual) Eosinophils % (Manual) Platelet Estimate RBC Morphology PT INR APTT Sodium Potassium Chloride Carbon Dioxide Anion Gap BUN Creatinine Est GFR ( Amer) Est GFR (Non-Af Amer) Random Glucose Hemoglobin A1c 4.5 Calcium Phosphorus Magnesium Total Bilirubin AST ALT Alkaline Phosphatase Total Protein Albumin Globulin Albumin/Globulin Ratio Triglycerides Cholesterol LDL Cholesterol Direct HDL Cholesterol Urine Color Urine Clarity Urine pH Ur Specific [place] Urine Protein Urine Glucose (UA) Urine Ketones Urine Blood Urine Nitrate Urine Bilirubin Urine Urobilinogen Ur Leukocyte Esterase Urine WBC (Auto) Urine RBC (Auto) Ur Squamous Epith Cells Urine Opiates Screen Urine Methadone Screen Ur Barbiturates Screen Ur Phencyclidine Scrn Ur Amphetamines Screen U Benzodiazepines Scrn U Oth Cocaine Metabols U Cannabinoids Screen Alcohol, Quantitative Hepatitis A IgM Ab Hep Bs Antigen Hep B Core IgM Ab Hepatitis C Antibody HIV 1&2 Antibody Screen Negative - Imaging and Cardiology CT scan - head Status: Image reviewed by me, Report reviewed by me (No acute findings.) Assessment & Plan (1) Transient ischemic attack (TIA) Assessment and Plan: 1. Telemetry; 2. Start aspirin 81 mg daily in addition to cilostazol; 3. Continue statin to maintain LDL below 100 mg/dL; 4. MRI brain/MRA of the head/ neck without contrast; 5. Echocardiogram with bubble study; 6. Check HbA1c, Lipid panel, B12, folate, TSH; 7. PT/OT eval and treat if needed. Status: Acute Priority: High
--- NOTE | 2017-01-31 16:22 | MRI ---
PROCEDURE: MR Angiography of the neck without contrast HISTORY: vision loss COMPARISON: None available. TECHNIQUE: 3D [id number] angiography of the neck was performed. Rotating maximum intensity projection images of the cervical carotid and vertebral arteries were generated. The origins of the common carotid arteries were not visualized, which is a limitation inherent to the non-contrast time of flight technique. FINDINGS: RIGHT CAROTID ARTERIES: Common Carotid Artery: Normal. Carotid Bifurcation: Normal. Internal Carotid Artery:Normal. External Carotid Artery (proximal branches): Normal. LEFT CAROTID ARTERIES: Common Carotid Artery: Normal. Carotid Bifurcation: Normal. Internal Carotid Artery:Normal. External Carotid Artery (proximal branches): Normal. VERTEBRAL ARTERIES: Right Vertebral Artery: Normal. Left Vertebral Artery: The left vertebral artery is smaller than the right. OTHER FINDINGS: None. IMPRESSION: Suboptimal study due to patient's motion. No evidence of significant stenosis at the internal carotid arteries. Small size left vertebral artery.
--- NOTE | 2017-01-31 16:43 | MRI ---
PROCEDURE: MRI BRAIN WITHOUT CONTRAST HISTORY: loss vision COMPARISON: Comparison is made to the previous study dated 01/20/2016 TECHNIQUE: Multiplanar, multisequence MR images of the brain were obtained without intravenous contrast enhancement. FINDINGS: HEMORRHAGE: None DWI: No evidence of an acute or early subacute infarction. BRAIN PARENCHYMA: No mass effect or edema. Mild atrophy is noted. Re- demonstration of scattered small foci of hyperintense T2 and FLAIR signal in the white matter suggestive but nonspecific for chronic microvascular ischemic disease. Re- demonstration of dilated perivascular space at the left parietal. VENTRICLES: Unremarkable. No hydrocephalus. CRANIUM: Unremarkable. ORBITS: Grossly unremarkable. PARANASAL SINUSES/MASTOIDS: Mild sinuses mucosal thickening seen. VASCULAR SYSTEM: Skull base flow voids intact. OTHER FINDINGS: None. IMPRESSION: No evidence of acute infarct or acute pathology in the brain. No significant interval change since the previous exam.
--- NOTE | 2017-01-31 16:49 | MRI ---
PROCEDURE: Magnetic Resonance Angiography Brain HISTORY: vision loss COMPARISON: None available. TECHNIQUE: 3D time of flight MR angiography of the intracranial arteries was performed. Rotating maximum intensity projection images were generated. FINDINGS: INTERNAL CEREBRAL ARTERIES: Unremarkable. The skull base, petrous, cavernous and supraclinoid segments are bilaterally widely patient. ANTERIOR CEREBRAL ARTERIES: Unremarkable. A1 and A2 segments are widely patent. Smaller distal branches unremarkable, as visualized. MIDDLE CEREBRAL ARTERIES: Unremarkable. M1 and M2 segments are widely patent. Perisylvian branches grossly symmetric. POSTERIOR CIRCULATION: Basilar Artery: Unremarkable. Distal Vertebral Arteries: The distal portion of the left vertebral artery is not visualized. The right vertebral artery continuous as basilar artery. Posterior Cerebral Arteries: Unremarkable. Posterior Inferior Cerebellar Arteries: Unremarkable. ANEURYSM/ VASCULAR MALFORMATIONS: None. OTHER FINDINGS: None. IMPRESSION: Mild diffuse irregularity seen in the visualized intracranial arteries suggestive of atherosclerotic disease. No evidence of focus significant stenosis or occlusion. The distal left vertebral artery is not visualized.
[2017-01-31 19:58] LABS: CHLORIDE 95 mmol/L (98-107); POTASSIUM 3.8 mmol/L (3.6-5.2); SODIUM 131 mmol/L (132-148)
[2017-01-31 20:01] LABS: BLOOD UREA NITROGEN 8 mg/dL (9-20); CARBON DIOXIDE 29 mmol/L (22-30); GFR AFRICAN-AMERICAN > 60
[2017-01-31 20:02] LABS: GLUCOSE,RANDOM 80 mg/dL (75-110)
[2017-01-31] MEDS ORDERED: Rosuvastatin Calcium 2.5 mg Tab PO SCH (22:00)
[2017-02-01 07:43] LABS: BASO % 1.1 % (0.0-2.0); EOS # 0.1 K/uL (0.0-0.7); EOS % 2.6 % (0.0-4.0); HEMATOCRIT 34.5 % (35.0-51.0); LYMPH # 1.1 K/uL (1.0-4.3); LYMPH % 38.7 % (20.0-40.0); MEAN CELL VOLUME 90.6 fL (80.0-94.0); MEAN CORPUSCULAR HEMOGLOBIN 29.8 pg (27.0-31.0); MEAN CORPUSCULAR HGB CONC 32.8 g/dL (33.0-37.0); MEAN PLATELET VOLUME 8.6 fL (7.2-11.7); MONO # 0.7 K/uL (0.0-0.8); NRBC % 0.2 % (0.0-2.0); PLATELET COUNT 124 K/uL (130-400); RED CELL DISTRIBUTION WIDTH 19.1 % (11.5-14.5); WHITE BLOOD COUNT 2.8 K/uL (4.8-10.8)
[2017-02-01 08:17] LABS: CHLORIDE 98 mmol/L (98-107); SODIUM 131 mmol/L (132-148)
[2017-02-01 08:19] LABS: ALB/GLOB RATIO 0.6 (1.0-2.1); ALKALINE PHOSPHATASE 122 U/L (38-126); AST/SGOT 107 U/L (17-59); BILIRUBIN,TOTAL 2.5 mg/dL (0.2-1.3); BLOOD UREA NITROGEN 8 mg/dL (9-20); CARBON DIOXIDE 27 mmol/L (22-30); GFR AFRICAN-AMERICAN > 60; TOTAL PROTEIN 7.5 g/dL (6.3-8.3)
[2017-02-01 08:20] LABS: ALT/SGPT 36 U/L (21-72); CALCIUM 7.9 mg/dl (8.6-10.4); GLUCOSE,RANDOM 83 mg/dL (75-110); MAGNESIUM 1.6 mg/dL (1.6-2.3); PHOSPHOROUS 2.9 mg/dL (2.5-4.5)
[2017-02-01 08:23] LABS: EOSINOPHIL 4 % (0-4); MYELOCYTE 1 % (0-0); NEUTROPHIL 36 % (50-75); TOTAL CELLS COUNTED 100
[2017-02-01] MEDS ORDERED: Magnesium Sulfate 1 gm in D5W 1 GM/100 ML BAG IVPB ONE (09:07)
[2017-02-01] MEDS ORDERED: Magnesium Sulfate 1 gm in D5W 1 GM/100 ML BAG IVPB SCH (09:30)
[2017-02-01] MEDS: Pantoprazole 40 mg EC Tab PO SCH (09:36)
[2017-02-01] MEDS: Cilostazol 100 mg Tab UD PO SCH ×2 (09:36→17:53)
[2017-02-01] MEDS: Multiple Vitamins Tab PO SCH (09:38)
[2017-02-01] MEDS: Potassium Ch 20mEq in D5-1/2NS 1,000 ML IV SCH (09:38)
[2017-02-01 11:52] VITALS: O2SAT 99
--- NOTE | 2017-02-01 12:00 | CARD ---
APPROVED REPORT EKG Measurement Heart [id number] <Conclusion> Normal sinus rhythm Prolonged QT Abnormal ECG
--- NOTE | 2017-02-01 14:15 | CARD ---
APPROVED REPORT EXAM: Two-dimensional and M-mode echocardiogram with Doppler and color Doppler. Other Information Quality : GoodRhythm : NSR INDICATION CVA/TIA Congestive Heart Failure HYPOMAGNESIUMA, HYPOKALEMIA, PROLONGED QT RISK FACTORS Hypertension Hyperlipidemia M-Mode DIMENSIONS RVDd2.97 (2.1-3.2cm)Left Atrium (MM)6.26 (2.5-4.0cm) IVSd1.28 (0.7-1.1cm)Aortic Root2.93 (2.2-3.7cm) LVDd5.36 (4.0-5.6cm)Aortic Cusp Exc.1.85 (1.5-2.0cm) PWd1.48 (0.7-1.1cm)FS (%) 30 % LVDs3.75 (2.0-3.8cm)LVEF (%)57 (>50%) Aortic Valve AoV Peak Fwbonybj942.1cm/Amaris Peak GR.9mmHg Mitral Valve MV E Cfmqkygk40.3cm/sMV A Nrjmzueb85.3cm/sE/A ratio1.6 TDI E/Lateral E'0.0E/Medial E'0.0 Tricuspid Valve TR Peak Ywzrjkkg244oj/sTR Peak Gr.53qmZyWCYJ77obHy LEFT VENTRICLE The left ventricle is normal size. There is normal left ventricular wall thickness. The left ventricular function is normal. The left ventricular ejection fraction is within the normal range. No regional wall motion abnormalities noted. The left ventricular diastolic function is normal. No left ventricle thrombus noted on this study. There is no ventricular septal defect visualized. There is no left ventricular aneurysm. There is no mass noted in the left ventricle. RIGHT VENTRICLE The right ventricle is normal size. There is normal right ventricular wall thickness. The right ventricular systolic function is normal. ATRIA The left atrium is moderately dilated. The right atrium size is normal. The interatrial septum is intact with no evidence for an atrial septal defect. AORTIC VALVE The aortic valve is normal in structure and function. No aortic regurgitation is present. There is no aortic valvular stenosis. There is no aortic valvular vegetation. MITRAL VALVE The mitral valve is normal in structure and function. There is no evidence of mitral valve prolapse. There is no mitral valve stenosis. Mitral regurgitation is trace to mild. TRICUSPID VALVE The tricuspid valve is normal in structure and function. There is mild tricuspid regurgitation. Right ventricular systolic pressure is estimated at less than 30 mmHg. There is no tricuspid valve prolapse or vegetation. There is no tricuspid valve stenosis. PULMONIC VALVE The pulmonary valve is normal in structure and function. There is no pulmonic valvular regurgitation. There is no pulmonic valvular stenosis. GREAT VESSELS The aortic root is normal in size. The ascending aorta is normal in size. The pulmonary artery is normal. The IVC is normal in size and collapses >50% with inspiration. PERICARDIAL EFFUSION The pericardium appears normal. There is no pleural effusion. <Conclusion> The left ventricular function is normal. The left ventricular ejection fraction is within the normal range. No regional wall motion abnormalities noted. The left atrium is moderately dilated.
--- NOTE | 2017-02-01 15:13 | CP.PCM.PN ---
Subjective - Date & Time of Evaluation Date of Evaluation: 02/01/17 Time of Evaluation: 13:00 - Subjective Subjective: Mr. Loya was seen and examined today at bedside. He had no new complaints and there were no acute events overnight. I discussed the findings of the MRI/ MRA of the head with him and told him that he has intracranial atherosclerotic disease (ICAD), and will require dual antiplatelet therapy. Objective - Vital Signs/Intake and Output Vital Signs (last 24 hours): Temp Pulse Resp BP Pulse Ox 97.8 F 81 20 110/73 99 02/01/17 07:40 02/01/17 07:40 02/01/17 07:40 02/01/17 07:40 02/01/17 07:40 Intake and Output: 02/01/17 02/01/17 06:59 18:59 Intake Total 400 Output Total 1250 Balance -850 - Medications Medications: Current Medications Aspirin (Aspirin Chewable) 81 mg PO DAILY [facility] Last Admin: 02/01/17 09:44 Dose: 81 mg Cilostazol (Pletal) 100 mg PO BID [facility] Last Admin: 02/01/17 09:36 Dose: 100 mg Folic Acid (Folic Acid) 1 mg PO DAILY [facility] Last Admin: 02/01/17 09:37 Dose: 1 mg Potassium Chloride/Dextrose/Sod Cl (Potassium Chl 20 Meq In D5-1/2ns) 1,000 mls @ 100 mls/hr IV .Q10H [facility] Last Admin: 02/01/17 09:38 Dose: 100 mls/hr Lorazepam (Ativan) 1 mg IVP Q4H PRN PRN Reason: Symptoms of alcohol withdrawl Multivitamins (Hexavitamin) 1 tab PO DAILY [facility] Last Admin: 02/01/17 09:38 Dose: 1 tab Pantoprazole Sodium (Protonix Ec Tab) 40 mg PO DAILY [facility] Last Admin: 02/01/17 09:36 Dose: 40 mg Pneumococcal Polyvalent Vaccine (Pneumovax 23 Vaccine) 0.5 ml IM .ONCE ONE Stop: 02/02/17 10:01 Rosuvastatin Calcium (Crestor) 2.5 mg PO HS [facility] Last Admin: 01/31/17 22:26 Dose: 2.5 mg Thiamine HCl (Vitamin B1 Tab) 100 mg PO DAILY [facility] Last Admin: 02/01/17 09:36 Dose: 100 mg - Labs Labs: 02/01/17 07:19 02/01/17 07:19 PT 16.8 SECONDS (9.7-12.2) H 01/30/17 20:39 INR 1.5 01/30/17 20:39 APTT 36 SECONDS (21-34) H 01/30/17 20:39 - Neurological Exam Neurological Exam: Alert, Awake, CN II-XII Intact, Normal Gait, Reflexes Normal Neuro motor strength exam: Left Upper Extremity: 5, Right Upper Extremity: 5, Left Lower Extremity: 5, Right Lower Extremity: 5 Additional comments: Neurologically unchanged compared with yesterday's examination. - Psychiatric Exam Psychiatric exam: Normal Affect, Normal Mood Assessment and Plan (1) Transient ischemic attack (TIA) Assessment & Plan: Likely due to ICAD. Continue aspirin, Plavix and Crestor for stroke prevention. Follow-up with neurology as an outpatient as well as cardiology. Continue risk factor management and stroke education. Status: Acute
[2017-02-01 15:51] VITALS: BP 109/63; PULSE 83; TEMP 97.9
--- NOTE | 2017-02-01 16:10 | VASCLAB ---
PROCEDURE: HISTORY: blurry vision COMPARISON: None available. TECHNIQUE: Grayscale and duplex Doppler evaluation of the cervical carotid and vertebral arteries were performed. The common carotid, carotid bifurcations and cervical Internal Carotid Artery (ICA) and proximal External Carotid Artery (ECA) were evaluated. The vertebral arteries were evaluated for gross patency and flow direction. Report prepared by Srikanth Hanks, BS, RVT. FINDINGS: RIGHT CAROTID ARTERIES: 1. Common Carotid Artery: No significant focal plaque formation of the right common carotid artery. Maximum Peak Systolic velocity: 117 cm/sec: End-diastolic velocity 19 cm/sec. 2. Carotid Bifurcation: plaque formation. Maximum Peak Systolic velocity: 110 cm/sec: End-diastolic velocity 15 cm/sec. 3. Internal Carotid Artery: Plaque description: 3.1. Proximal Segment: Peak systolic velocity 95 cm/sec: End-diastolic velocity 22 cm/sec - % stenosis 0-15% 3.2. Middle Segment: Peak systolic velocity 45 cm/sec: End-diastolic velocity 13 cm/sec - % stenosis 0-15% 3.3. Distal Segment: Peak systolic velocity 61 cm/sec: End-diastolic velocity 24 cm/sec - % stenosis 0-15% 4. External Carotid Artery: No significant focal plaque formation. Peak systolic velocity 87 cm/sec 5. ICA/CCA Ratio: 0.9 LEFT CAROTID ARTERIES: 1. Common Carotid Artery: No significant focal plaque formation of the left common carotid artery. Maximum Peak Systolic velocity: 136 cm/sec: End-diastolic velocity 16 cm/sec. 2. Carotid Bifurcation: plaque formation. Maximum Peak Systolic velocity: 97 cm/sec: End-diastolic velocity 10 cm/sec. 3. Internal Carotid Artery: Plaque description: 3.1. Proximal Segment: Peak systolic velocity 98 cm/sec: End-diastolic velocity 19 cm/sec - % stenosis 0-15% 3.2. Middle Segment: Peak systolic velocity 118 cm/sec: End-diastolic velocity 23 cm/sec - % stenosis 0-15% 3.3. Distal Segment: Peak systolic velocity 67 cm/sec: End-diastolic velocity 14 cm/sec - % stenosis 0-15% 4. External Carotid Artery: No significant focal plaque formation. Peak systolic velocity 114 cm/sec 5. ICA/CCA Ratio: 0.9 VERTEBRAL ARTERIES: 1. Right Vertebral Artery: The right vertebral artery flow direction is antegrade. 2. Left Vertebral Artery: The left vertebral artery flow direction is antegrade. OTHER FINDINGS: 1. Right Brachial Blood pressure: 108 mmHg. 2. Left Brachial Blood pressure: 113 mmHg. IMPRESSION: RIGHT: Duplex scan does not suggest hemodynamically significant stenosis of the right extracranial carotid arteries. LEFT: Duplex scan does not suggest hemodynamically significant stenosis of the left extracranial carotid arteries.
--- NOTE | 2017-02-01 16:11 | VASCLAB ---
PROCEDURE: Lower Extremity Venous Duplex Exam. HISTORY: Leg swelling PRIORS: None. TECHNIQUE: Bilateral common femoral, femoral, popliteal and posterior tibial, peroneal and great saphenous veins were evaluated. Flow was assessed with color Doppler, compressibility, assessment of phasic flow and augmentation response. Report prepared by BETITO Rouse, RVT. FINDINGS: RIGHT: 1. Common Femoral Vein: 1.1. Compressibility - Fully compressible: Thrombus - None : Flow - Phasic: Augmentation -Normal: Reflux - None. 2. Femoral Vein: 2.1. Compressibility - Fully compressible: Thrombus - None : Flow - Phasic: Augmentation -Normal: Reflux - None. 3. Popliteal Vein: 3.1. Compressibility - Fully compressible: Thrombus - None : Flow - Phasic: Augmentation -Normal: Reflux - Severe. 4. Posterior Tibial Vein: 4.1. Compressibility - Fully compressible: Thrombus - None: Flow - Phasic: Augmentation -Normal: Reflux - None. 5. Peroneal Vein: 5.1. Compressibility - Fully compressible: Thrombus - None: Flow - Phasic: Augmentation -Normal: Reflux - None. 6. Great Saphenous Vein: 6.1. Compressibility - Fully compressible: Thrombus - None: Flow - Phasic: Augmentation - Normal: Reflux - None. LEFT: 1. Common Femoral Vein: 1.1. Compressibility - Fully compressible: Thrombus - None: Flow - Phasic: Augmentation -Normal: Reflux - None. 2. Femoral Vein: 2.1. Compressibility - Fully compressible: Thrombus - None: Flow - Phasic: Augmentation -Normal: Reflux - None. 3. Popliteal Vein: 3.1. Compressibility - Fully compressible: Thrombus - None : Flow - Phasic: Augmentation -Normal: Reflux - None. 4. Posterior Tibial Vein: 4.1. Compressibility - Fully compressible: Thrombus - None: Flow - Phasic: Augmentation -Normal: Reflux - None. 5. Peroneal Vein: 5.1. Compressibility - Fully compressible: Thrombus - None: Flow - Phasic: Augmentation -Normal: Reflux - None. 6. Great Saphenous Vein: 6.1. Compressibility - Fully compressible: Thrombus - None: Flow - Phasic: Augmentation - Normal: Reflux - None. OTHER FINDINGS: Right: Severe valvular incompetence of the right popliteal vein. Left: None significant. IMPRESSION: Right: No evidence of deep or superficial vein thrombosis of the right lower extremity. Left: No evidence of deep or superficial vein thrombosis of the left lower extremity. Normal valve function noted of the left side.
--- NOTE | 2017-02-01 16:12 | VASCLAB ---
STUDY DESCRIPTION: HISTORY: bilaterally for PAD PRIORS: None. TECHNIQUE: Pulse volume recording waveforms and segmental pressures of bilateral lower extremities at multiple levels were obtained. Ankle Brachial Indices (ABIs) were calculated. Report prepared by BETITO Sweeney, RVT. RIGHT LOWER EXTREMITY: * Brachial artery: Pressure - 108 mmHg. * High thigh: Pressure - mmHg: Ratio - : PVR waveform - * Low thigh: Pressure - mmHg: Ratio - PVR waveform: Pulsatile * Calf: Pressure - 140 mmHg: Ratio - 1.24 PVR waveform: Pulsatile * Posterior tibial Artery: Pressure - 139 mmHg: Ratio - 1.23 PVR waveform: Pulsatile * Dorsalis pedis Artery: Pressure - 126 mmHg: Ratio - 1.12 PVR waveform: Pulsatile * Great toe: Pressure - mmHg: Ratio - PVR waveform: Ankle brachial index (STEPHANE): 1.23 LEFT LOWER EXTREMITY: * Brachial artery: Pressure - 113 mmHg. * High thigh: Pressure - mmHg: Ratio - : PVR waveform - * Low thigh: Pressure - mmHg: Ratio - PVR waveform: Pulsatile * Calf: Pressure - 130 mmHg: Ratio - 1.15 PVR waveform: Pulsatile * Posterior tibial Artery: Pressure - 138 mmHg: Ratio - 1.22 PVR waveform: Pulsatile * Dorsalis pedis Artery: Pressure - 125 mmHg: Ratio - 1.11 PVR waveform: Pulsatile * Great toe: Pressure - mmHg: Ratio - PVR waveform: Ankle brachial index (STEPHANE): 1.22 OTHER FINDINGS: Right: Left: IMPRESSION: Right: There was no evidence of hemodynamically significant arterial insufficiency in the right lower extremity. Left: There was no evidence of hemodynamically significant arterial insufficiency in the left lower extremity.
--- NOTE | 2017-02-01 18:02 | CP.PCM.DIS ---
<Elizabeth Reyes DO - Last Filed: 02/01/17 18:07> Provider - Provider Date of Admission: 01/30/17 13:24 Attending physician: hSakira Rosado DO Consults: Dr. Igor Delatorre Time Spent in preparation of Discharge (in minutes): 35 Diagnosis - Discharge Diagnosis (1) Transient ischemic attack (TIA) Status: Acute Priority: High Comment: Patient evaluated by neurologist Dr. Delatorre. Patient is to take cilostazol, and aspirin on discharge. Patient will be started on statin therapy pending repeat LFTs after discharge are WNL. (2) Cirrhosis of liver Status: Chronic Comment: Patient with history of alcoholism. Patient will start lasix and aldactone daily on discharge. Patient will follow up with [facility] and have LFTs checked. Patient is encouraged to stop drinking alcohol and will be started on statin therapy pending his ability to abstain from drinking and that his LFTs are WNL. Hospital Course - Lab Results Lab Results: Most Recent Lab Values WBC 2.8 K/uL (4.8-10.8) L 02/01/17 07:19 RBC 3.81 Mil/uL (4.40-5.90) L 02/01/17 07:19 Hgb 11.3 g/dL (12.0-18.0) L 02/01/17 07:19 Hct 34.5 % (35.0-51.0) L 02/01/17 07:19 MCV 90.6 fL (80.0-94.0) 02/01/17 07:19 MCH 29.8 pg (27.0-31.0) 02/01/17 07:19 MCHC 32.8 g/dL (33.0-37.0) L 02/01/17 07:19 RDW 19.1 % (11.5-14.5) H 02/01/17 07:19 Plt Count 124 K/uL (130-400) L 02/01/17 07:19 MPV 8.6 fL (7.2-11.7) 02/01/17 07:19 Neut % (Auto) 31.6 % (50.0-75.0) L 02/01/17 07:19 Lymph % (Auto) 38.7 % (20.0-40.0) 02/01/17 07:19 [place] % (Auto) 26.0 % (0.0-10.0) H 02/01/17 07:19 Eos % (Auto) 2.6 % (0.0-4.0) 02/01/17 07:19 Baso % (Auto) 1.1 % (0.0-2.0) 02/01/17 07:19 Neut # 0.9 K/uL (1.8-7.0) L 02/01/17 07:19 Lymph # 1.1 K/uL (1.0-4.3) 02/01/17 07:19 [place] # 0.7 K/uL (0.0-0.8) 02/01/17 07:19 Eos # 0.1 K/uL (0.0-0.7) 02/01/17 07:19 Baso # 0.0 K/uL (0.0-0.2) 02/01/17 07:19 Neutrophils % (Manual) 36 % (50-75) L 02/01/17 07:19 Band Neutrophils % 1 % (0-2) 01/30/17 10:52 Lymphocytes % (Manual) 38 % (20-40) 02/01/17 07:19 Monocytes % (Manual) 21 % (0-10) H 02/01/17 07:19 Eosinophils % (Manual) 4 % (0-4) 02/01/17 07:19 Myelocytes % 1 % (0-0) H 02/01/17 07:19 Platelet Estimate Slightly decreased (NORMAL) L 02/01/17 07:19 RBC Morphology Normal 01/31/17 10:59 Polychromasia Slight 02/01/17 07:19 Hypochromasia (manual) Slight 02/01/17 07:19 Poikilocytosis (manual Slight 02/01/17 07:19 Anisocytosis (manual) Slight 02/01/17 07:19 PT 16.8 SECONDS (9.7-12.2) H 01/30/17 20:39 INR 1.5 01/30/17 20:39 APTT 36 SECONDS (21-34) H 01/30/17 20:39 Sodium 131 mmol/L (132-148) L 02/01/17 07:19 Potassium 4.0 mmol/L (3.6-5.2) 02/01/17 07:19 Chloride 98 mmol/L (98-107) 02/01/17 07:19 Carbon Dioxide 27 mmol/L (22-30) 02/01/17 07:19 Anion Gap 10 (10-20) 02/01/17 07:19 BUN 8 mg/dL (9-20) L 02/01/17 07:19 Creatinine 0.7 MG/DL (0.8-1.5) L 02/01/17 07:19 Est GFR ( Amer) > 60 02/01/17 07:19 Est GFR (Non-Af Amer) > 60 02/01/17 07:19 POC Glucose (mg/dL) 79 mg/dL (65-110) 01/30/17 10:39 Random Glucose 83 mg/dL (75-110) 02/01/17 07:19 Hemoglobin A1c 4.5 % (4.2-6.5) 01/31/17 10:59 Calcium 7.9 mg/dl (8.6-10.4) L 02/01/17 07:19 Phosphorus 2.9 mg/dL (2.5-4.5) 02/01/17 07:19 Magnesium 1.6 mg/dL (1.6-2.3) 02/01/17 07:19 Total Bilirubin 2.5 mg/dL (0.2-1.3) H 02/01/17 07:19 AST 107 U/L (17-59) H 02/01/17 07:19 ALT 36 U/L (21-72) 02/01/17 07:19 Alkaline Phosphatase 122 U/L (38-126) 02/01/17 07:19 Troponin I 0.0350 ng/mL (0.00-0.120) 01/30/17 12:00 Total Protein 7.5 g/dL (6.3-8.3) 02/01/17 07:19 Albumin 2.8 g/dL (3.5-5.0) L 02/01/17 07:19 Globulin 4.6 gm/dL (2.2-3.9) H 02/01/17 07:19 Albumin/Globulin Ratio 0.6 (1.0-2.1) L 02/01/17 07:19 Triglycerides 37 mg/dL (0-149) D 01/31/17 10:59 Cholesterol 139 mg/dL (0-199) 01/31/17 10:59 LDL Cholesterol Direct 80 mg/dL (0-129) 01/31/17 10:59 HDL Cholesterol 41 mg/dL (30-70) 01/31/17 10:59 Urine Color Yellow (YELLOW) 01/30/17 20:39 Urine Clarity Clear (Clear) 01/30/17 20:39 Urine pH 8.0 (5.0-8.0) 01/30/17 20:39 Ur Specific [place] 1.006 (1.003-1.030) 01/30/17 20:39 Urine Protein Negative mg/dL (NEGATIVE) 01/30/17 20:39 Urine Glucose (UA) Normal mg/dL (Normal) 01/30/17 20:39 Urine Ketones Negative mg/dL (NEGATIVE) 01/30/17 20:39 Urine Blood Negative (NEGATIVE) 01/30/17 20:39 Urine Nitrate Negative (NEGATIVE) 01/30/17 20:39 Urine Bilirubin Negative (NEGATIVE) 01/30/17 20:39 Urine Urobilinogen 2.0 mg/dL (0.2-1.0) 01/30/17 20:39 Ur Leukocyte Esterase Neg Taylor/uL (Negative) 01/30/17 20:39 Urine WBC (Auto) < 1 /hpf (0-5) 01/30/17 20:39 Urine RBC (Auto) < 1 /hpf (0-3) 01/30/17 20:39 Ur Squamous Epith Cells < 1 /hpf (0-5) 01/30/17 20:39 Urine Opiates Screen Negative (NEGATIVE) 01/30/17 20:39 Urine Methadone Screen Negative (NEGATIVE) 01/30/17 20:39 Ur Barbiturates Screen Negative (NEGATIVE) 01/30/17 20:39 Ur Phencyclidine Scrn Negative (NEGATIVE) 01/30/17 20:39 Ur Amphetamines Screen Negative (NEGATIVE) 01/30/17 20:39 U Benzodiazepines Scrn Negative (NEGATIVE) 01/30/17 20:39 U Oth Cocaine Metabols Negative (NEGATIVE) 01/30/17 20:39 U Cannabinoids Screen Negative (NEGATIVE) 01/30/17 20:39 Alcohol, Quantitative < 10 mg/dl (0-10) 01/30/17 17:30 Hepatitis A IgM Ab Negative (NEGATIVE) 01/31/17 10:59 Hep Bs Antigen Negative (NEGATIVE) 01/31/17 10:59 Hep B Core IgM Ab Negative (NEGATIVE) 01/31/17 10:59 Hepatitis C Antibody Negative (NEGATIVE) 01/31/17 10:59 HIV 1&2 Antibody Screen Negative (NEGATIVE) 01/31/17 10:59 - Hospital Course Hospital Course: On Admission: 46M with PMHx (as per EMR) HTN, HLD, CHF, HLD, and Alcoholic Cirrhosis presents to the ED complaining of temporary loss of vision. Patient reports he was drinking alcohol 2 weeks ago when he fell forward. He had abrasions of his face , hands, and knees. Patient was seen in [place] where Head CT was negative and he had his lip laceration sutured. Patient reports last night he got up to use the bathroom, when he had 3 separate episodes of vision loss, each lasting 15- 20 minutes. He had complete vision loss, he explained it "almost if I had both my hands covering my eyes, complete darkness". During these episodes the patient remained seated. Denied any headache, loss of consciousness, dizziness, syncope, chest pain, or any other symptoms during these episodes. Shortly between each episode, he regained complete vision. This has never happened to him before. He admits to wearing prescription glasses, however he does not wear them currently due to losing them. Denied fever, chills, headache, any head trauma, jaw pain, SOB, chest pain, abdominal pain, n/v/d/c, or urinary symptoms. During hospitalization: Patient had the following imaging to evaluate his complaint of loss of vison: Head CT w/o Contrast: No acute intracranial hemorrhage. Minor chronic white matter ischemic changes less well seen on this study compared to high- resolution MRI. Note that small hyperacute infarct may be missed on initial CT imaging Carotid Dopplers with mild disease bilaterally Bilateral venous dopplers negative for DVT Neck MRA: no evidence stenosis at internal carotids, small left vertebral artery Head MRA: mild diffuse irregularity in visualized intracranial arteries suggestive of atherosclerotic disease. no focus of significant stenosis or occlusion, distal left vertebral artery not visualized MRI brain: no infarct or acute pathology Patient was evaluated by neurologist Dr. Delatorre. Per neurology, patient likely had a TIA due to intracranial atherosclerotic disease. Patient will need to stay on aspirin and cilostazol for this. Patient should also start statin therapy. Due to patient's history of alcoholism, patient will need to have LFTs monitored as an outpatient and pending results, patient should be started on statin. Patient's electrolytes were also monitored and repleted during hospitalization. Patient had echocardiogram that showed normal EF, mild left atrial dilation. On Discharge: Patient is stable for discharge home per Dr. Rosado. Patient should follow up with the [facility] at [facility] within one week. Patient should take the following medications on discharge: cilostazol 100mg PO BID, Aspirin 81mg PO daily, aldactone 25mg daily, lasix 20mg daily. Patient will need to follow up in the clinic for measurement of his LFTs. Patient should stop drinking alcohol. If patient has not resumed drinking alcohol and LFTs are WNL, will consider starting statin therapy. Patient should also follow up with neurology upon discharge. Paciente est estable para la descarga pgina por Dr. Rosado. Paciente debe seguir para arriba con el [facility] el [facility] dentro de jacinta semana. Paciente debe yuri los siguientes medicamentos en descarga: cilostazol 100mg PO BID, aspirina 81mg PO diarios, aldactone 25mg diario, lasix 20mg al da. Paciente necesitar seguimiento en la clnica para la medicin de ronn LFTs. Paciente debe dejar de beber alcohol. Si paciente no panchal reanudado el consumo de alcohol y LFTs WNL, considerar iniciar tratamiento con estatinas. Paciente tambin debe seguir para arriba con neurologa en descarga. Discharge Exam - Head Exam Head Exam: ATRAUMATIC, NORMAL INSPECTION, NORMOCEPHALIC - Eye Exam Eye Exam: EOMI - ENT Exam ENT Exam: Mucous Membranes Moist - Respiratory Exam Respiratory Exam: NORMAL BREATHING PATTERN - Cardiovascular Exam Cardiovascular Exam: +S1, +S2 - GI/Abdominal Exam GI & Abdominal Exam: Normal Bowel Sounds, Soft. absent: Firm, Guarding, Tenderness - Extremities Exam Additional comments: venous stasis changes bilaterally with superficial skin ulceration - Neurological Exam Neurological exam: Alert - Psychiatric Exam Psychiatric exam: Normal Affect - Skin Skin Exam: Warm Discharge Plan - Discharge Medications Prescriptions: Aspirin [Aspirin Chewable] 81 mg PO DAILY #30 tab Cilostazol [Pletal] 100 mg PO BID #60 tab Furosemide [Lasix] 20 mg PO DAILY #30 tab Spironolactone [Aldactone] 25 mg PO DAILY #60 tab - Follow Up Plan Condition: STABLE Disposition: HOME/ ROUTINE Instructions: Spironolactone (By mouth), Furosemide (By mouth), Aspirin (By mouth), Cilostazol (By mouth), Transient Ischemic Attack (DC), Heart Failure (DC ), How to Stop Smoking (DC), Hypokalemia (DC), Cigarette Smoking and Your Health (GEN), Hypomagnesemia (DC) Additional Instructions: Patient is stable for discharge home per Dr. Rosado. Patient should follow up with the [facility] at [facility] within one week. Patient should take the following medications on discharge: cilostazol 100mg PO BID, Aspirin 81mg PO daily, aldactone 25mg daily, lasix 20mg daily. Patient will need to follow up in the clinic for measurement of his LFTs. Patient should stop drinking alcohol. If patient has not resumed drinking alcohol and LFTs are WNL, will consider starting statin therapy. Patient should also follow up with neurology upon discharge. Paciente est estable para la descarga pgina por Dr. Rosado. Paciente debe seguir para arriba con el [facility] dentro de jacinta semana. Paciente debe yuri los siguientes medicamentos en descarga: cilostazol 100mg PO BID, aspirina 81mg PO diarios, aldactone 25mg diario, lasix 20mg al da. Paciente necesitar seguimiento en la clnica para la medicin de ronn LFTs. Paciente debe dejar de beber alcohol. Si paciente no panchal reanudado el consumo de alcohol y LFTs WNL, considerar iniciar tratamiento con estatinas. Paciente tambin debe seguir para arriba con neurologa en descarga. Referrals: [facility] [Outside] - 1 Week Igor Rehman MD [Staff Provider] - Yuan Delatorre MD [Staff Provider] - Clinical Quality Measures - CQM - Stroke Antithrombotic Prescribed: Yes Anticoagulation Prescribed for Atrial Flutter, Atrial Fibrillation and History of:: Not Applicable Contranindication/Reason for not providing: Other Other Contraindication/Reason for not providing: patient does not have afib/ a flutter Contraindication/Reason for not providing: Other (hx alcoholism, will need to monitor LFTs) If Other selected, reason for not providing: hx alcoholism, will need to monitor LFTs - CQM - Heart Failure Ejection Fraction: 40 % or Greater Left Ventricular Function to be assessed after discharge: No GLENN Inhibitor Prescribed: No Contraindication/Reason for not providing: not indicated Beta-Judith Prescribed: None Contraindication/Reason for not providing: not indicated Angiotensin II Receptor Judith Prescribed: No Contraindication/Reason for not providing: not indicated AnticoagulationTherapy for Atrial Fibrillation/Atrialflutter: No Contraindication/Reason for not providing: patient does not have a fib/ a flutter Aldosterone Antagonist Prescribed: Yes Hydralazine Nitrate Prescribed: No Contraindication/Reason for not providing: not indicated Implantable Cardioverter Defibrillator Therapy: No Contraindication/Reason for not providing: not indicated Cardiac Resynchronization Therapy Prescribed: No Contraindication/Reason for not providing: not indicated Will be discharged to: Home Follow Up Date (must be within 7 days from discharge): 02/08/17 Follow Up Time: 09:00 <Shakria Rosado V - Last Filed: 03/11/17 00:04> Provider - Provider Date of Admission: 01/30/17 13:24 Attending physician: Shakira Rosado DO Hospital Course - Lab Results Lab Results: Most Recent Lab Values WBC 2.8 K/uL (4.8-10.8) L 02/01/17 07:19 RBC 3.81 Mil/uL (4.40-5.90) L 02/01/17 07:19 Hgb 11.3 g/dL (12.0-18.0) L 02/01/17 07:19 Hct 34.5 % (35.0-51.0) L 02/01/17 07:19 MCV 90.6 fL (80.0-94.0) 02/01/17 07:19 MCH 29.8 pg (27.0-31.0) 02/01/17 07:19 MCHC 32.8 g/dL (33.0-37.0) L 02/01/17 07:19 RDW 19.1 % (11.5-14.5) H 02/01/17 07:19 Plt Count 124 K/uL (130-400) L 02/01/17 07:19 MPV 8.6 fL (7.2-11.7) 02/01/17 07:19 Neut % (Auto) 31.6 % (50.0-75.0) L 02/01/17 07:19 Lymph % (Auto) 38.7 % (20.0-40.0) 02/01/17 07:19 [place] % (Auto) 26.0 % (0.0-10.0) H 02/01/17 07:19 Eos % (Auto) 2.6 % (0.0-4.0) 02/01/17 07:19 Baso % (Auto) 1.1 % (0.0-2.0) 02/01/17 07:19 Neut # 0.9 K/uL (1.8-7.0) L 02/01/17 07:19 Lymph # 1.1 K/uL (1.0-4.3) 02/01/17 07:19 [place] # 0.7 K/uL (0.0-0.8) 02/01/17 07:19 Eos # 0.1 K/uL (0.0-0.7) 02/01/17 07:19 Baso # 0.0 K/uL (0.0-0.2) 02/01/17 07:19 Neutrophils % (Manual) 36 % (50-75) L 02/01/17 07:19 Band Neutrophils % 1 % (0-2) 01/30/17 10:52 Lymphocytes % (Manual) 38 % (20-40) 02/01/17 07:19 Monocytes % (Manual) 21 % (0-10) H 02/01/17 07:19 Eosinophils % (Manual) 4 % (0-4) 02/01/17 07:19 Myelocytes % 1 % (0-0) H 02/01/17 07:19 Platelet Estimate Slightly decreased (NORMAL) L 02/01/17 07:19 RBC Morphology Normal 01/31/17 10:59 Polychromasia Slight 02/01/17 07:19 Hypochromasia (manual) Slight 02/01/17 07:19 Poikilocytosis (manual Slight 02/01/17 07:19 Anisocytosis (manual) Slight 02/01/17 07:19 PT 16.8 SECONDS (9.7-12.2) H 01/30/17 20:39 INR 1.5 01/30/17 20:39 APTT 36 SECONDS (21-34) H 01/30/17 20:39 Sodium 131 mmol/L (132-148) L 02/01/17 07:19 Potassium 4.0 mmol/L (3.6-5.2) 02/01/17 07:19 Chloride 98 mmol/L (98-107) 02/01/17 07:19 Carbon Dioxide 27 mmol/L (22-30) 02/01/17 07:19 Anion Gap 10 (10-20) 02/01/17 07:19 BUN 8 mg/dL (9-20) L 02/01/17 07:19 Creatinine 0.7 MG/DL (0.8-1.5) L 02/01/17 07:19 Est GFR ( Amer) > 60 02/01/17 07:19 Est GFR (Non-Af Amer) > 60 02/01/17 07:19 POC Glucose (mg/dL) 79 mg/dL (65-110) 01/30/17 10:39 Random Glucose 83 mg/dL (75-110) 02/01/17 07:19 Hemoglobin A1c 4.5 % (4.2-6.5) 01/31/17 10:59 Calcium 7.9 mg/dl (8.6-10.4) L 02/01/17 07:19 Phosphorus 2.9 mg/dL (2.5-4.5) 02/01/17 07:19 Magnesium 1.6 mg/dL (1.6-2.3) 02/01/17 07:19 Total Bilirubin 2.5 mg/dL (0.2-1.3) H 02/01/17 07:19 AST 107 U/L (17-59) H 02/01/17 07:19 ALT 36 U/L (21-72) 02/01/17 07:19 Alkaline Phosphatase 122 U/L (38-126) 02/01/17 07:19 Troponin I 0.0350 ng/mL (0.00-0.120) 01/30/17 12:00 Total Protein 7.5 g/dL (6.3-8.3) 02/01/17 07:19 Albumin 2.8 g/dL (3.5-5.0) L 02/01/17 07:19 Globulin 4.6 gm/dL (2.2-3.9) H 02/01/17 07:19 Albumin/Globulin Ratio 0.6 (1.0-2.1) L 02/01/17 07:19 Triglycerides 37 mg/dL (0-149) D 01/31/17 10:59 Cholesterol 139 mg/dL (0-199) 01/31/17 10:59 LDL Cholesterol Direct 80 mg/dL (0-129) 01/31/17 10:59 HDL Cholesterol 41 mg/dL (30-70) 01/31/17 10:59 Urine Color Yellow (YELLOW) 01/30/17 20:39 Urine Clarity Clear (Clear) 01/30/17 20:39 Urine pH 8.0 (5.0-8.0) 01/30/17 20:39 Ur Specific [place] 1.006 (1.003-1.030) 01/30/17 20:39 Urine Protein Negative mg/dL (NEGATIVE) 01/30/17 20:39 Urine Glucose (UA) Normal mg/dL (Normal) 01/30/17 20:39 Urine Ketones Negative mg/dL (NEGATIVE) 01/30/17 20:39 Urine Blood Negative (NEGATIVE) 01/30/17 20:39 Urine Nitrate Negative (NEGATIVE) 01/30/17 20:39 Urine Bilirubin Negative (NEGATIVE) 01/30/17 20:39 Urine Urobilinogen 2.0 mg/dL (0.2-1.0) 01/30/17 20:39 Ur Leukocyte Esterase Neg Taylor/uL (Negative) 01/30/17 20:39 Urine WBC (Auto) < 1 /hpf (0-5) 01/30/17 20:39 Urine RBC (Auto) < 1 /hpf (0-3) 01/30/17 20:39 Ur Squamous Epith Cells < 1 /hpf (0-5) 01/30/17 20:39 Urine Opiates Screen Negative (NEGATIVE) 01/30/17 20:39 Urine Methadone Screen Negative (NEGATIVE) 01/30/17 20:39 Ur Barbiturates Screen Negative (NEGATIVE) 01/30/17 20:39 Ur Phencyclidine Scrn Negative (NEGATIVE) 01/30/17 20:39 Ur Amphetamines Screen Negative (NEGATIVE) 01/30/17 20:39 U Benzodiazepines Scrn Negative (NEGATIVE) 01/30/17 20:39 U Oth Cocaine Metabols Negative (NEGATIVE) 01/30/17 20:39 U Cannabinoids Screen Negative (NEGATIVE) 01/30/17 20:39 Alcohol, Quantitative < 10 mg/dl (0-10) 01/30/17 17:30 Hepatitis A IgM Ab Negative (NEGATIVE) 01/31/17 10:59 Hep Bs Antigen Negative (NEGATIVE) 01/31/17 10:59 Hep B Core IgM Ab Negative (NEGATIVE) 01/31/17 10:59 Hepatitis C Antibody Negative (NEGATIVE) 01/31/17 10:59 HIV 1&2 Antibody Screen Negative (NEGATIVE) 01/31/17 10:59 Attending/Attestation - Attestation I have personally seen and examined this patient.: Yes I have fully participated in the care of the patient.: Yes I have reviewed all pertinent clinical information, including history, physical exam and plan: Yes Notes (Text): This is late computer entry for 02/01/17. Patient seen, examined, and case discussed with day-time resident. Patient completed echocardiogram today, which reports shows normal EF, mild left atrial dilation. Patient medically stable for discharge. Discharge order and discharge instructions discussed with patient and day-time resident. Patient should follow up with the [facility] within one week. Patient should take the following medications on discharge: 1) cilostazol 100mg PO BID 2) Aspirin 81mg PO daily 3) aldactone 25mg daily 4) lasix 20mg daily Patient will need to follow up in the clinic for measurement of his LFTs. Patient should stop drinking alcohol. If patient has not resumed drinking alcohol and LFTs are WNL, will consider starting statin therapy. Patient should also follow up with neurology upon discharge. Heart failure core measure completed TIA/Stroke measures completed. Assessment/Plan 1) Blurry/ Temporary Loss of Vision secondary to TIA * Head CT w/o Contrast: No acute intracranial hemorrhage. Minor chronic white matter ischemic changes less well seen on this study compared to high- resolution MRI. Note that small hyperacute infarct may be missed on initial CT imaging * Carotid Dopplers ---> mild disease b/l * Neurology, Dr. Delatorre consulted - help appreciated * Opthamology, Dr. Rehman consulted- help appreciated * Brain MRI (01/31/17): no evidence of acute infarct or acute pathology in the brain, no significant interval change since previous exam * Neck MRA (01/31/17): suboptimal study due to patient's motion. No evidence of significant stenosis at the interval cartoid arteries. Small size left vertebral artery * Head MRA (01/31/17): mild diffuse irregularity seen in the visualized intracranial arteries suggestive of atherosclerotic disease. No evidence of focus significant stenosis or occlusion. Distal left vertebral artery is not visualized * Echocardiogram completed--->available in EMR for official report 2) Electrolyte Imbalances 3) Hx of Alcohol Abuse 4) Hx Liver Cirrhosis 5) PVD 6) Chronic Diastolic Congestive Heart Failure 7) Hx of HTN 8) Prophylactic Measures This is a summary of patient's hospitalization. Please see EMR for further details.
[2017-02-02] MEDS ORDERED: Pneumococcal 23-Valent Vaccine IM ONE (10:00)
== END 2017-02-01 18:29 | disposition home or self-care (01) ==
LOC: C.ER 09:32 → INTOOBSV 13:24 → C.9E 13:24 → C.6T 14:53
PROVIDERS: ADMIT Hospitalist; ATTEND Hospitalist
DX: G45.9 Transient cerebral ischemic attack, unspecified (principal); D69.6 Thrombocytopenia, unspecified; I11.0 Hypertensive heart disease with heart failure; I50.32 Chronic diastolic (congestive) heart failure; K70.30 Alcoholic cirrhosis of liver without ascites; E83.42 Hypomagnesemia; H53.123 Transient visual loss, bilateral; F10.20 Alcohol dependence, uncomplicated; E78.5 Hyperlipidemia, unspecified; E87.6 Hypokalemia; F31.9 Bipolar disorder, unspecified; J44.9 Chronic obstructive pulmonary disease, unspecified; I73.9 Peripheral vascular disease, unspecified; F17.210 Nicotine dependence, cigarettes, uncomplicated; K21.9 Gastro-esophageal reflux disease without esophagitis; F20.9 Schizophrenia, unspecified; Z90.49 Acquired absence of other specified parts of digestive tract; Z91.81 History of falling
CPT/HCPCS: 36415; 70450; 70544; 70547; 70551; 80048; 80053; 80061; 80074; 81001; 82948; 83036; 83735; 84100; 84484; 85025; 85610; 85730; 86703; 93005; 93306; 93880; 93923; 93970; 96361; 96365; 96366; 99285; G0378; G0480; J3475; J3480; J7040

== ENCOUNTER 2017-02-07 13:57 | Inpatient (IN) | payer MEDICARE, OTHER ==
[2017-02-07 14:02] VITALS: BMI 47.0
[2017-02-07] MEDS ORDERED: Multivitamin (MVI) 10 ML, Thiamine 100 MG, Folic Acid 1 MG in Sodium Chloride 0.9% 1,00... IV STA (15:25)
[2017-02-07 15:40] LABS: BASO % 0.1 % (0.0-2.0); EOS % 0.3 % (0.0-4.0); HEMATOCRIT 35.4 % (35.0-51.0); LYMPH # 0.3 K/uL (1.0-4.3); LYMPH % 4.2 % (20.0-40.0); MEAN CELL VOLUME 91.9 fL (80.0-94.0); MEAN CORPUSCULAR HEMOGLOBIN 29.5 pg (27.0-31.0); MEAN CORPUSCULAR HGB CONC 32.1 g/dL (33.0-37.0); MEAN PLATELET VOLUME 8.4 fL (7.2-11.7); MONO # 0.5 K/uL (0.0-0.8); MONO % 7.1 % (0.0-10.0); PLATELET COUNT 146 K/uL (130-400); RED CELL DISTRIBUTION WIDTH 19.8 % (11.5-14.5)
[2017-02-07 15:45] LABS: RBC URINE < 1 /hpf (0-3); URINE BILIRUBIN NEGATIVE (NEGATIVE); URINE BLOOD NEGATIVE (NEGATIVE); URINE COLOR Yellow (YELLOW); URINE GLUCOSE (UA) NORMAL (Normal); URINE KETONE NEGATIVE (NEGATIVE); URINE LEUKOCYTE ESTERASE NEG Leu/uL (Negative); URINE PROTEIN NEGATIVE (NEGATIVE); WBC URINE < 1 /hpf (0-5)
[2017-02-07 15:47] LABS: INR 1.4
[2017-02-07 16:01] LABS: CHLORIDE 102 mmol/L (98-107)
[2017-02-07 16:02] LABS: POTASSIUM 4.6 mmol/L (3.6-5.2); SODIUM 132 mmol/L (132-148)
[2017-02-07 16:04] LABS: ALB/GLOB RATIO 0.7 (1.0-2.1); ALKALINE PHOSPHATASE 116 U/L (38-126); ALT/SGPT 30 U/L (21-72); AST/SGOT 104 U/L (17-59); BILIRUBIN,TOTAL 1.8 mg/dL (0.2-1.3); BLOOD UREA NITROGEN 6 mg/dL (9-20); CARBON DIOXIDE 21 mmol/L (22-30); GFR AFRICAN-AMERICAN > 60; TOTAL PROTEIN 7.4 g/dL (6.3-8.3)
[2017-02-07 16:05] LABS: CALCIUM 7.3 mg/dl (8.6-10.4); GLUCOSE,RANDOM 82 mg/dL (75-110); MAGNESIUM 1.2 mg/dL (1.6-2.3)
--- NOTE | 2017-02-07 16:15 | RAD ---
HISTORY: SOB, fever COMPARISON: Chest x-ray performed 10/20/16 TECHNIQUE: Chest, one view. FINDINGS: The patient's chin obscures evaluation of the lung apices. LUNGS: Mild interstitial prominence may reflect infection or edema. Please note that chest x-ray has limited sensitivity for the detection of pulmonary masses. PLEURA: No significant pleural effusion identified. No definite pneumothorax . CARDIOVASCULAR: Cardiomegaly. OSSEOUS STRUCTURES: Chronic appearing left 4th rib fracture deformity. Degenerative changes of the spine. VISUALIZED UPPER ABDOMEN: Unremarkable. OTHER FINDINGS: None. IMPRESSION: Cardiomegaly. Mild interstitial prominence may reflect infection or edema.
[2017-02-07 16:16] LABS: ALCOHOL SERUM < 10 mg/dl (0-10)
[2017-02-07 16:17] LABS: EOSINOPHIL 1 % (0-4); NEUTROPHIL 86 % (50-75); TOTAL CELLS COUNTED 100
[2017-02-07] MEDS ORDERED: Magnesium Sulfate 1 gm in D5W 1 GM/100 ML BAG IVPB ONE ×2 (16:21→16:29)
[2017-02-07] MEDS ORDERED: cefTRIAXone IV 1 gm in Dextros 50 ML IVPB ONE ×2 (16:34→16:38)
[2017-02-07] MEDS ORDERED: Azithromycin 500mg/250ML NS 500 MG/250 ML BAG IVPB STA (16:34)
[2017-02-07] MEDS ORDERED: Azithromycin 500mg/250ML NS 500 MG/250 ML BAG IVPB ONE (16:38)
--- NOTE | 2017-02-07 16:58 | C.PDOC ---
Time Seen by Provider: 02/07/17 15:13 Chief Complaint (Nursing): Shortness Of Breath History Per: Patient Onset/Duration Of Symptoms: Days Current Symptoms Are (Timing): Still Present Severity: Moderate Associated Symptoms: Fever, Ankle/Leg Swelling Reports Recently: Hospitalized Additional History Per: Prior Records Past Medical History Reviewed: Historical Data, Nursing Documentation, Vital Signs Vital Signs: Last Vital Signs Temp 101 F H 02/07/17 15:57 Pulse 97 H 02/07/17 15:57 Resp 21 02/07/17 15:57 BP 106/51 L 02/07/17 15:57 Pulse Ox 97 02/07/17 15:57 - Medical History PMH: Anxiety, Asthma, Bipolar Disorder, CHF (?), COPD (ASTHMA), Depression, HTN , Schizophrenia Other PMH: Alcoholic liver cirrhosis. Surgical History: Appendectomy - [facility] Procedures FLUOROSCOPY OF RIGHT JUGULAR VEINS, GUIDANCE (11/14/15) INSERT INFUSION DEV IN R INT JUGULAR VEIN, PERC (11/14/15) REMOVAL OF INFUSION DEVICE FROM UPPER VEIN, STAFF ANTISUBMARINE OFFICER APPROACH (11/14/15) Family History: States: Unknown Family Hx - Social History Hx Tobacco Use: No Hx Alcohol Use: Yes Hx Substance Use: No - Immunization History Hx Tetanus Toxoid Vaccination: No Hx Influenza Vaccination: Yes Hx Pneumococcal Vaccination: No Review Of Systems Except As Marked, All Systems Reviewed And Found Negative. Constitutional: Positive for: Fever, Malaise ENT: Negative for: Throat Pain Cardiovascular: Positive for: Edema. Negative for: Chest Pain Respiratory: Positive for: Shortness of Breath, SOB with Excertion. Negative for: Hemoptysis Gastrointestinal: Positive for: Abdominal Pain (epigastric), Hematochezia. Negative for: Vomiting Genitourinary: Negative for: Dysuria Musculoskeletal: Negative for: Neck Pain Neurological: Negative for: Weakness, Numbness, Seizures Physical Exam - Physical Exam Appears: No Acute Distress, Chronically Ill Skin: Warm, Dry Head: Atraumatic Eye(s): bilateral: PERRL, EOMI Neck: Normal ROM, Supple Cardiovascular: Rhythm Regular Respiratory: No Accessory Muscle Use, Rales Gastrointestinal/Abdominal: Soft, No Tenderness Rectal: Heme Positive, Other ([place] liquid on gloved finger) Back: No CVA Tenderness Extremity: Normal ROM, Pedal Edema Neurological/Psych: Oriented x3, Normal Motor, Normal Sensation ED Course And Treatment - Laboratory Results Result Diagrams: 02/07/17 15:30 02/07/17 15:30 Lab Interpretation: No Changes Compared To Prior Results ECG: Interpreted By Me, Viewed By Me ECG Rhythm: Sinus Rhythm ECG Interpretation: No Acute Changes Rate From EC O2 Sat by Pulse Oximetry: 97 Pulse Ox Interpretation: Normal - Radiology CXR: Viewed By Me, Read By Radiologist CXR Interpretation: Yes: Infiltrates (interstitial), Cardiomegaly - Physician Consult Information Physician Contacted: Rolando Car (GI Fellow) Outcome Of Conversation: He return call for Dr. Kerr. They will consult. Progress - Interventions Interventions:: Observation, Intravenous fluid, Oxygen - Medications Administered Intravenous: Other (Mg, Abx. ) - Data Reviewed Data Reviewed: Lab, Diagnostic imaging, EKG, Old records - Patient Status Patient status: Partially improved - Critical Care Citical Care: Excluding Proc Time Critical Care Time: 45 minutes - Continuity of Care Discussed patient case with:: Patient, ED Nurse, On-call PMD-pt unassigned Discussed pt. case with diet consultant/specialty: Gastroenterology - Patient Plan Patient Plan: Admission Disposition Discussed With : Lucila Vaughn Comment: He accepted pt on his service. Doctor Will See Patient In The: Hospital Counseled Patient/Family Regarding: Studies Performed, Diagnosis - Disposition Disposition: HOSPITALIZED Disposition Time: 17:04 Condition: FAIR - Clinical Impression Clinical Impression: Pneumonia, GI bleeding
[2017-02-07 18:28] VITALS: RESP 20
--- NOTE | 2017-02-07 20:00 | CP.PCM.HP ---
History of Present Illness - History of Present Illness History of Present Illness: COMPREHENSIVE HISTORY & PHYSICAL EXAM HPI 46 years or alcoholic male admitted with chills, fever, cough expectoration and shortness of breath. Chest x-ray showed possible pneumonia and patient had a fever of 101 in the emergency room. Patient also is complaining of blood in the stool. Patient is a chronic alcoholic cirrhosis of liver with multiple admissions for edema of legs, ascites and liver failure. Patient was also admitted recently for TIA and with ongoing urological workup were negative. PAST HIST. PERSONAL HIST: Smoking. N Alcohol. y Allergy N Travel_- . FAMILY HIST : ROS : Constitutional: Negative for weight change, Eyes: Negative for redness, swelling, itching, discharge, vision changes, blurry vision, double vision, glaucoma, cataracts, Ears: Negative for hearing loss, ringing, , tinnitus, vertigo Nose: Negative for rhinorrhea, stuffiness, sniffing, itching, postnasal drip, discoloration, nasal congestion and epistaxis. Throat: Negative for throat clearing, sore throat, hoarseness, difficulty swallowing and difficulty speaking. Respiratory: pos for cough, chest tightness, sputum or phlegm, chronic cough , hemoptysis, wheezing, snoring at night, pleuritic chest pain and daytime somnolence. Cardiovascular: Negative for chest pain, palpitations, orthopnea, PND, Edema of legs, leg cramps, angina, claudication, , irregular heartbeat, Neurology: Negative for irritability, muscle weakness, numbness and tingling, seizures, tremors, migraines, slurred speech, syncope, memory loss, mood changes , recurrent headaches Gastrointestinal: Negative for difficulty swallowing, diarrhea, constipation, black stools, rectal bleeding, nausea, flatulence, reflux, poor appetite, changes in bowel habits, abdominal pain Genitourinary: Negative for frequent urination, hematuria, discharge, incontinence, urinary retention, frequent UTI, Psychiatric: Negative for depression, anxiety/panic, suicidal tendencies, Musculoskeletal: Negative for swollen joints, back pain, , neck pain, morning stiffness of joints, . Skin: Negative for rash, ulcers, itching, dry skin and pigmented lesions. P/E: Constitutional: Appears stated age and in no apparent distress. Head: Normocephalic. Ears: External ear canals patent without inflammation. Tympanic membranes intact with normal light reflex and landmark. Eyes: Pupils are central, bilaterally equal, symmetrical and reacts to light with normal movements and no icterus or pallor. Nose: External nares are patent. Mucosa is pink Mouth-Throat: Good general appearance and condition. No post-pharyngeal/oropharyngeal erythema and tonsillar hypertrophy. Good dental hygiene. Neck-Lymphatic: Neck is supple with normal ROM, no thyromegaly, lymph nodes or masses. JVD is normal with no carotid bruit. Lungs: yamile crepts Cardiovascular: S1 and S2 are normal with no murmurs, gallops and rub. GI Exam: No hepatomegaly. Abdomen is soft and non-tender. No Organomegaly , masses or hernias are evident and bowel sounds are normal and active. Neurology: Higher function and all cranial nerves intact, with no gross motor or sensory deficit. Superficial and deep reflexes are normal with downwards planters. No cerebellar deficit with normal gait. Musculoskeletal: No tender spots with normal curvature of the spine with no swelling or restricted ROM of the small and large joints. Extremities: Homans sign absent. Intact pulses with no pitting edema, calf tenderness or skin color changes. Skin: No rash, eruptions or abnormal skin pigmentation LAB/RADIOLOGY: ASSESMENT : YAMILE INTERSTITIAL PNEUMONIA CIRRHOSIS OF LIVER HTN pLAN SEE ORDERS Present on Admission - Present on Admission Any Indicators Present on Admission: No Past Patient History - Infectious Disease Hx of Infectious Diseases: None - Tetanus Immunizations Tetanus Immunization: Unknown - Past Medical History & Family History Past Medical History?: Yes - Past Social History Smoking Status: Current Some Days Smoker - CARDIAC Hx Congestive Heart Failure: Yes (?) Hx Hypertension: Yes - PULMONARY Hx Asthma: Yes Hx Chronic Obstructive Pulmonary Disease (COPD): Yes (ASTHMA) - NEUROLOGICAL Hx Alzheimer's Disease: No Hx Dementia: No Hx Migraine: No Hx Multiple Sclerosis: No Hx Parkinson's Disease: No Hx Seizures: No Hx Transient Ischemic Attacks (TIA): No - HEENT Hx HEENT Problems: No - RENAL Hx Chronic Kidney Disease: No - ENDOCRINE/METABOLIC Hx Hypothyroidism: No - HEMATOLOGICAL/ONCOLOGICAL Hx Blood Disorders: No - INTEGUMENTARY Hx Dermatological Problems: No - MUSCULOSKELETAL/RHEUMATOLOGICAL Hx Arthritis: No Hx Falls: No Hx Rheumatoid Arthritis: No - GASTROINTESTINAL Hx Esophageal Varices: Yes - GENITOURINARY/GYNECOLOGICAL Hx Genitourinary Disorders: No - PSYCHIATRIC Hx Anxiety: Yes Hx Bipolar Disorder: Yes Hx Depression: Yes Hx Schizophrenia: Yes Hx Substance Use: No - SURGICAL HISTORY Hx Appendectomy: Yes - ANESTHESIA Hx Anesthesia: Yes Hx Anesthesia Reactions: No Meds Allergies/Adverse Reactions: Allergies Allergy/AdvReac Type Severity Reaction Status Date / Time No Known Allergies Allergy Verified 02/07/17 14:10 Results - Vital Signs Recent Vital Signs: Last Vital Signs Temp 99.1 F 02/07/17 18:27 Pulse 90 02/07/17 18:27 Resp 20 02/07/17 18:27 BP 123/73 02/07/17 18:27 Pulse Ox 100 02/07/17 18:27 - Labs Result Diagrams: 02/07/17 15:30 02/07/17 15:30
[2017-02-08 07:21] LABS: CHLORIDE 103 mmol/L (98-107); SODIUM 132 mmol/L (132-148)
[2017-02-08 07:22] LABS: BASO % 0.7 % (0.0-2.0); EOS % 0.1 % (0.0-4.0); HEMATOCRIT 33.4 % (35.0-51.0); LYMPH # 0.4 K/uL (1.0-4.3); LYMPH % 7.6 % (20.0-40.0); MEAN CELL VOLUME 91.1 fL (80.0-94.0); MEAN CORPUSCULAR HEMOGLOBIN 29.7 pg (27.0-31.0); MEAN CORPUSCULAR HGB CONC 32.6 g/dL (33.0-37.0); MEAN PLATELET VOLUME 8.5 fL (7.2-11.7); MONO # 0.4 K/uL (0.0-0.8); PLATELET COUNT 119 K/uL (130-400); POTASSIUM 3.7 mmol/L (3.6-5.2); RED CELL DISTRIBUTION WIDTH 18.9 % (11.5-14.5); WHITE BLOOD COUNT 5.6 K/uL (4.8-10.8)
[2017-02-08 07:24] LABS: ALB/GLOB RATIO 0.6 (1.0-2.1); ALKALINE PHOSPHATASE 120 U/L (38-126); ALT/SGPT 36 U/L (21-72); AST/SGOT 66 U/L (17-59); BILIRUBIN,DIRECT 0.6 mg/dL (0.0-0.4); BILIRUBIN,TOTAL 1.3 mg/dL (0.2-1.3); BLOOD UREA NITROGEN 7 mg/dL (9-20); CALCIUM 7.8 mg/dl (8.6-10.4); CARBON DIOXIDE 24 mmol/L (22-30); GFR AFRICAN-AMERICAN > 60; GLUCOSE,RANDOM 81 mg/dL (75-110); TOTAL PROTEIN 6.7 g/dL (6.3-8.3)
--- NOTE | 2017-02-08 08:54 | CP.PCM.CON ---
<Rolando Car - Last Filed: 02/08/17 09:04> History of Present Illness - History of Present Illness History of Present Illness: PGY4 GI Fellow Consult Note Patient is a 46yo male with PMHx significant for EtOH cirrhosis, recent TIA ( recommended to be on dual antiplatelet therapy by neurology), HTN, HLD who presented to the ED with generalized malaise and fatigue. He states that over the past week he has progressively become more fatigued and noted that he was very dizzy yesterday, prompting him to come to the ED for evaluation. States that he has noted bright red bloody bowel movements in the 4 days leading up to admission. Denies ever having symptoms like this previously and has no known history of hemorrhoids, constipation. Patient was noted to have a fever of 101F on admission and there was concern for pneumonia given CXR findings. He was recently admitted to the hospital for three episodes of vision loss and diagnosed with a TIA, recommended by neurology to be on dual antiplatelet therapy which he states he may be taking as an outpatient, but admits his is unsure. Denies any hematemesis, pruritus, jaundice, nausea, vomiting, weight loss. PMHx: See HPI PSHx: Appendectomy FHx: Discussed with patient and denies any significant FHx Social: Prior EtOH abuse (quit end of December following recent admission); Denies tobacco or illicit drug use Endo: No prior endoscopic evaluations Review of Systems - Constitutional Constitutional: Fever, Malaise, Weakness. absent: Anorexia, Chills, Weight Loss - EENT Eyes: absent: Change in Vision Nose/Mouth/Throat: absent: Sore Throat - Cardiovascular Cardiovascular: absent: Chest Pain, Dyspnea, Edema - Respiratory Respiratory: absent: Cough, Dyspnea, Excessive Mucous Production - Gastrointestinal Gastrointestinal: Hematochezia. absent: Abdominal Pain, Bloating, Change in Stool Character, Constipation, Cramping, Diarrhea, Dyspepsia, Dysphagia, Heartburn, Hematemesis, Melena, Nausea, Odynophagia, Vomiting - Genitourinary Genitourinary: absent: Dysuria, Urinary Frequency, Urinary Urgency - Musculoskeletal Musculoskeletal: absent: Back Pain, Neck Pain - Integumentary Integumentary: absent: New Lesions, Rash - Neurological Neurological: absent: Dizziness, Numbness, Focal Weakness - Psychiatric Psychiatric: absent: Anxiety, Depression - Endocrine Endocrine: absent: Polydipsia, Polyphagia, Polyuria - Hematologic/Lymphatic Hematologic: absent: Easy Bleeding, Easy Bruising, Lymphadenopathy Past Patient History - Infectious Disease Hx of Infectious Diseases: None - Tetanus Immunizations Tetanus Immunization: Unknown - Past Medical History & Family History Past Medical History?: Yes - Past Social History Smoking Status: Current Some Days Smoker - CARDIAC Hx Congestive Heart Failure: Yes (?) Hx Hypertension: Yes - PULMONARY Hx Asthma: Yes Hx Chronic Obstructive Pulmonary Disease (COPD): Yes (ASTHMA) - NEUROLOGICAL Hx Alzheimer's Disease: No Hx Dementia: No Hx Migraine: No Hx Multiple Sclerosis: No Hx Parkinson's Disease: No Hx Seizures: No Hx Transient Ischemic Attacks (TIA): No - HEENT Hx HEENT Problems: No - RENAL Hx Chronic Kidney Disease: No - ENDOCRINE/METABOLIC Hx Hypothyroidism: No - HEMATOLOGICAL/ONCOLOGICAL Hx Blood Disorders: No - INTEGUMENTARY Hx Dermatological Problems: No - MUSCULOSKELETAL/RHEUMATOLOGICAL Hx Arthritis: No Hx Falls: No Hx Rheumatoid Arthritis: No - GASTROINTESTINAL Hx Esophageal Varices: Yes - GENITOURINARY/GYNECOLOGICAL Hx Genitourinary Disorders: No - PSYCHIATRIC Hx Anxiety: Yes Hx Bipolar Disorder: Yes Hx Depression: Yes Hx Schizophrenia: Yes Hx Substance Use: No - SURGICAL HISTORY Hx Appendectomy: Yes - ANESTHESIA Hx Anesthesia: Yes Hx Anesthesia Reactions: No Meds Allergies/Adverse Reactions: Allergies Allergy/AdvReac Type Severity Reaction Status Date / Time No Known Allergies Allergy Verified 02/07/17 14:10 - Medications Medications: Current Medications Cefepime HCl 1 gm/ Dextrose 50 mls @ 100 mls/hr IVPB Q8 [facility] Last Admin: 02/08/17 05:34 Dose: 100 mls/hr Vancomycin HCl 1,000 mg/ (Sodium Chloride) 250 mls @ 166.6 mls/hr IVPB Q12H [facility] Last Admin: 02/08/17 00:23 Dose: 166.6 mls/hr Pneumococcal Polyvalent Vaccine (Pneumovax 23 Vaccine) 0.5 ml IM .ONCE ONE Stop: 02/09/17 10:01 Physical Exam - Constitutional Appears: Non-toxic, No Acute Distress Additional comments: obese - Eye Exam Eye Exam: EOMI, PERRL - ENT Exam ENT Exam: Mucous Membranes Moist - Respiratory Exam Respiratory Exam: Clear to Auscultation Bilateral. absent: Rales, Rhonchi, Wheezes - Cardiovascular Exam Cardiovascular Exam: RRR, +S1, +S2 - GI/Abdominal Exam GI & Abdominal Exam: Normal Bowel Sounds, Soft. absent: Distended, Firm, Guarding, Organomegaly, Rigid, Tenderness - Rectal Exam Rectal Exam: absent: Black Stool, Bloody Stool, Hemorrhoids - Extremities Exam Extremities exam: Positive for: pedal edema - Neurological Exam Neurological exam: Alert, Oriented x3 - Psychiatric Exam Psychiatric exam: Normal Affect, Normal Mood - Skin Skin Exam: Dry, Warm Results - Vital Signs Recent Vital Signs: Last Vital Signs Temp 99.2 F 02/07/17 23:13 Pulse 85 02/07/17 23:13 Resp 20 02/07/17 23:13 BP 118/70 02/07/17 23:13 Pulse Ox 97 02/07/17 23:13 - Labs Result Diagrams: 02/08/17 07:03 02/08/17 07:03 Labs: Laboratory Results - last 24 hr 02/08/17 02/08/17 02/08/17 07:03 07:03 07:03 WBC 5.6 RBC 3.66 L Hgb 10.9 L Hct 33.4 L MCV 91.1 MCH 29.7 MCHC 32.6 L RDW 18.9 H Plt Count 119 L D MPV 8.5 Neut % (Auto) 83.6 H Lymph % (Auto) 7.6 L [place] % (Auto) 8.0 Eos % (Auto) 0.1 Baso % (Auto) 0.7 Neut # 4.7 Lymph # 0.4 L [place] # 0.4 Eos # 0.0 Baso # 0.0 Sodium 132 Potassium 3.7 Chloride 103 Carbon Dioxide 24 Anion Gap 10 BUN 7 L Creatinine 0.7 L Est GFR ( Amer) > 60 Est GFR (Non-Af Amer) > 60 Random Glucose 81 Calcium 7.8 L Total Bilirubin 1.3 Direct Bilirubin 0.6 H AST 66 H D ALT 36 Alkaline Phosphatase 120 C-React Prot High Sens > 15.00 H Total Protein 6.7 Albumin 2.6 L Globulin 4.1 H Albumin/Globulin Ratio 0.6 L Assessment & Plan - Assessment and Plan (Free Text) Assessment: Patient is a 46yo male with PMHx significant for EtOH cirrhosis, recent TIA ( recommended to be on dual antiplatelet therapy by neurology), HTN, HLD who presented to the ED with generalized malaise and fatigue. -Fever, concern for HCAP; R/O ascites/SBP -Hematochezia -EtOH cirrhosis -Recent TIA -HTN -HLD -Morbid obesity Plan: -Rectal exam without obvious hemorrhoids or rectal bleeding noted; liquid brown stool -Encourage patient to notify staff following BM -Fever w/u: awaiting conte-cultures -ABX per primary service -Check CT liver triple phase protocol -R/O ascites on above CT -Viral hepatitis serologies previously negative -Diet as tolerated -EtOH abstinence *MELD-Na: 17; has had previous eval at [facility] per patient - Date & Time Date: 02/08/17 Time: 06:45 <Ashish Kerr - Last Filed: 02/08/17 09:20> Meds - Medications Medications: Current Medications Cefepime HCl 1 gm/ Dextrose 50 mls @ 100 mls/hr IVPB Q8 [facility] Last Admin: 02/08/17 05:34 Dose: 100 mls/hr Vancomycin HCl 1,000 mg/ (Sodium Chloride) 250 mls @ 166.6 mls/hr IVPB Q12H [facility] Last Admin: 02/08/17 00:23 Dose: 166.6 mls/hr Pneumococcal Polyvalent Vaccine (Pneumovax 23 Vaccine) 0.5 ml IM .ONCE ONE Stop: 02/09/17 10:01 Results - Vital Signs Recent Vital Signs: Last Vital Signs Temp 99 F 02/08/17 08:00 Pulse 85 02/08/17 08:00 Resp 20 02/08/17 08:00 BP 143/68 02/08/17 08:00 Pulse Ox 97 02/08/17 08:00 - Labs Result Diagrams: 02/08/17 07:03 02/08/17 07:03 Labs: Laboratory Results - last 24 hr 02/08/17 02/08/17 02/08/17 07:03 07:03 07:03 WBC 5.6 RBC 3.66 L Hgb 10.9 L Hct 33.4 L MCV 91.1 MCH 29.7 MCHC 32.6 L RDW 18.9 H Plt Count 119 L D MPV 8.5 Neut % (Auto) 83.6 H Lymph % (Auto) 7.6 L [place] % (Auto) 8.0 Eos % (Auto) 0.1 Baso % (Auto) 0.7 Neut # 4.7 Lymph # 0.4 L [place] # 0.4 Eos # 0.0 Baso # 0.0 Sodium 132 Potassium 3.7 Chloride 103 Carbon Dioxide 24 Anion Gap 10 BUN 7 L Creatinine 0.7 L Est GFR ( Amer) > 60 Est GFR (Non-Af Amer) > 60 Random Glucose 81 Calcium 7.8 L Total Bilirubin 1.3 Direct Bilirubin 0.6 H AST 66 H D ALT 36 Alkaline Phosphatase 120 C-React Prot High Sens > 15.00 H Total Protein 6.7 Albumin 2.6 L Globulin 4.1 H Albumin/Globulin Ratio 0.6 L Attending/Attestation - Attestation I have personally seen and examined this patient.: Yes I have fully participated in the care of the patient.: Yes I have reviewed all pertinent clinical information: Yes Notes (Text): 02/08/17 09:09 I have seen and examined patient with GI fellow. Agree with above documentation with the following additions. In brief, this is a 46 year old male with history of ETOH cirrhosis, HTN, hyperlipidemia, morbid obesity (BMI 47 ), TIA who presents to hospital with complaint of generalized progressive weakness over the past one week. He describes feeling lethargic and dizzy and for the past two days he has also had fever. GI called for evaluation of cirrhosis and for complaint of rectal bleeding. He endorses two episodes of bright red rectal bleeding during bowel movements and attributes this to hemorrhoids which he has had in the past. He was previously instructed to be on anti-platelet therapy due to recently diagnosed TIA, however it seems he has been non-compliant with regimen. He otherwise denies abdominal pain, nausea, vomiting, weight loss, or change in bowel habits. No prior endoscopic evaluation. ETOH cirrhosis, admission MELD 17 HTN Hyperlipidemia Morbid obesity TIA Rectal bleeding - rectal exam performed shows internal hemorrhoids without presence of blood or stool in rectal vault Fever - Pneumonia - H/H stable, continue to monitor - Continue with antibiotic therapy as per ID, follow up blood cultures - Will also obtain triple phase liver CT to evaluate for HCC and presence of ascites given febrile cirrhotic patient - Low sodium diet as tolerated - Suggest use of anusol suppository for treatment of internal hemorrhoids - Patient would certainly benefit from elective outpatient EGD/colonoscopy for variceal and cancer screening purposes
[2017-02-08 09:32] LABS: ERYTHROCYTE SEDIMENTATION RATE 53 mm/hr (0-15)
[2017-02-08 10:30] LABS: NEUTROPHIL 81 % (50-75); TOTAL CELLS COUNTED 100
--- NOTE | 2017-02-08 11:50 | CP.PCM.CON ---
History of Present Illness - History of Present Illness History of Present Illness: INFECTIOUS DISEASE CONSULTATION; PATIENT SEEN. CONSULTS NOTED ,RADIOLOGY REVIEWED CONSULTATION DICTATED; DICTATION #50260. Past Patient History - Infectious Disease Hx of Infectious Diseases: None - Tetanus Immunizations Tetanus Immunization: Unknown - Past Medical History & Family History Past Medical History?: Yes - Past Social History Smoking Status: Current Some Days Smoker - CARDIAC Hx Congestive Heart Failure: Yes (?) Hx Hypertension: Yes - PULMONARY Hx Asthma: Yes Hx Chronic Obstructive Pulmonary Disease (COPD): Yes (ASTHMA) - NEUROLOGICAL Hx Alzheimer's Disease: No Hx Dementia: No Hx Migraine: No Hx Multiple Sclerosis: No Hx Parkinson's Disease: No Hx Seizures: No Hx Transient Ischemic Attacks (TIA): No - HEENT Hx HEENT Problems: No - RENAL Hx Chronic Kidney Disease: No - ENDOCRINE/METABOLIC Hx Hypothyroidism: No - HEMATOLOGICAL/ONCOLOGICAL Hx Blood Disorders: No - INTEGUMENTARY Hx Dermatological Problems: No - MUSCULOSKELETAL/RHEUMATOLOGICAL Hx Arthritis: No Hx Falls: No Hx Rheumatoid Arthritis: No - GASTROINTESTINAL Hx Esophageal Varices: Yes - GENITOURINARY/GYNECOLOGICAL Hx Genitourinary Disorders: No - PSYCHIATRIC Hx Anxiety: Yes Hx Bipolar Disorder: Yes Hx Depression: Yes Hx Schizophrenia: Yes Hx Substance Use: No - SURGICAL HISTORY Hx Appendectomy: Yes - ANESTHESIA Hx Anesthesia: Yes Hx Anesthesia Reactions: No Meds Allergies/Adverse Reactions: Allergies Allergy/AdvReac Type Severity Reaction Status Date / Time No Known Allergies Allergy Verified 02/07/17 14:10 - Medications Medications: Current Medications Cefepime HCl 1 gm/ Dextrose 50 mls @ 100 mls/hr IVPB Q8 [facility] Last Admin: 02/08/17 05:34 Dose: 100 mls/hr Vancomycin HCl 1,000 mg/ (Sodium Chloride) 250 mls @ 166.6 mls/hr IVPB Q12H [facility] Last Admin: 02/08/17 00:23 Dose: 166.6 mls/hr Pneumococcal Polyvalent Vaccine (Pneumovax 23 Vaccine) 0.5 ml IM .ONCE ONE Stop: 02/09/17 10:01 Results - Vital Signs Recent Vital Signs: Last Vital Signs Temp 99 F 02/08/17 08:00 Pulse 85 02/08/17 08:00 Resp 20 02/08/17 08:00 BP 143/68 02/08/17 08:00 Pulse Ox 97 02/08/17 08:00 - Labs Result Diagrams: 02/08/17 07:03 02/08/17 07:03 Labs: Laboratory Results - last 24 hr 02/08/17 02/08/17 02/08/17 07:03 07:03 07:03 WBC 5.6 RBC 3.66 L Hgb 10.9 L Hct 33.4 L MCV 91.1 MCH 29.7 MCHC 32.6 L RDW 18.9 H Plt Count 119 L D MPV 8.5 Neut % (Auto) 83.6 H Lymph % (Auto) 7.6 L [place] % (Auto) 8.0 Eos % (Auto) 0.1 Baso % (Auto) 0.7 Neut # 4.7 Lymph # 0.4 L [place] # 0.4 Eos # 0.0 Baso # 0.0 Neutrophils % (Manual) 81 H Band Neutrophils % 7 H Lymphocytes % (Manual) 5 L Monocytes % (Manual) 7 Platelet Estimate Slightly decreased L Anisocytosis (manual) Slight ESR 53 H Sodium 132 Potassium 3.7 Chloride 103 Carbon Dioxide 24 Anion Gap 10 BUN 7 L Creatinine 0.7 L Est GFR ( Amer) > 60 Est GFR (Non-Af Amer) > 60 Random Glucose 81 Calcium 7.8 L Total Bilirubin 1.3 Direct Bilirubin 0.6 H AST 66 H D ALT 36 Alkaline Phosphatase 120 C-React Prot High Sens > 15.00 H Total Protein 6.7 Albumin 2.6 L Globulin 4.1 H Albumin/Globulin Ratio 0.6 L
[2017-02-08] MEDS ORDERED: Iodixanol 320 MG/ML 100 ML BOTTLE IV ONE (11:55)
--- NOTE | 2017-02-08 12:01 | CARD ---
APPROVED REPORT EKG Measurement Heart [id number] <Conclusion> Normal sinus rhythm Normal ECG
--- NOTE | 2017-02-08 13:14 | CP.PCM.PN ---
Subjective - Date & Time of Evaluation Date of Evaluation: 02/08/17 Time of Evaluation: :14 - Subjective Subjective: CHIEF COMPLAINTS TODAY : NO VISIBLE RECTAL BLEED AFEBRILE ROS. HEENT : N. Resp : No cough, wheezing ,pleuritic CP ,or hemoptysis Cardio : No anginal CP, PND, orthopnea, palpitation GI : No abd.pain, n/v ,diarrhea or GI bleeding . 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 Musculoskel : No joint swelling , Derm : No rash Psych : Normal affect. Ext : No swelling ,calf pain PE. Pt. is alert awake in no distress. V.S As noted in the chart Head ,ear nose,throat and eyes : Normal. Neck : Supple with normal carotids. Lungs: Clear air entry. Heart : S1 & S2 normal with S4. No murmur. Abd : Soft non tender with normal bowel sounds. Neuro : Moves all ext. with no localized deficit. Ext : No edema with intact pulses.Non tender calves Derm : No rashes or decubitus ulcer. LABS/RADIOLOGY: ASSESSMENT/PLAN : GI W/U ON IV AB PER ID Objective - Vital Signs/Intake and Output Vital Signs (last 24 hours): Temp Pulse Resp BP Pulse Ox 99 F 87 20 165/91 H 97 02/08/17 08:00 02/08/17 12:31 02/08/17 08:00 02/08/17 12:31 02/08/17 12:31 Intake and Output: 02/08/17 02/08/17 11:59 23:59 Intake Total 540 Balance 540 - Medications Medications: Current Medications Cefepime HCl 1 gm/ Dextrose 50 mls @ 100 mls/hr IVPB Q8 [facility] Last Admin: 02/08/17 05:34 Dose: 100 mls/hr Vancomycin HCl 1,000 mg/ (Sodium Chloride) 250 mls @ 166.6 mls/hr IVPB Q12H [facility] Last Admin: 02/08/17 00:23 Dose: 166.6 mls/hr Pneumococcal Polyvalent Vaccine (Pneumovax 23 Vaccine) 0.5 ml IM .ONCE ONE Stop: 02/09/17 10:01 - Labs Labs: 02/08/17 07:03 02/08/17 07:03 PT 16.0 SECONDS (9.7-12.2) H 02/07/17 15:30 INR 1.4 02/07/17 15:30 APTT 34 SECONDS (21-34) 02/07/17 15:30
--- NOTE | 2017-02-08 13:29 | CT ---
CT abdomen and pelvis without/with IV contrast Indication: cirrhosis HCC screening; r/o ascites Technique: Contiguous axial images of the abdomen and pelvis without & with IV contrast utilizing liver protocol. Coronal and Sagittal reformats generated and reviewed. This CT exam was performed using 1 or more of the falling dose reduction techniques: Automated exposure control, adjustment of the MAA and/or kV according to patient size, and/or use of iterative reconstruction technique. Contrast: Oral contrast was administered. 100 mL Visipaque. Radiation dose: Total exam DLP = 2329.75 MGy-cm. Comparison: CT abdomen and pelvis without oral or IV contrast performed 01/12/15 Findings: Partially imaged cardiomegaly. No visible pleural effusion or pneumothorax. Nodular hepatic contour. Heterogeneous hepatic echotexture. Suboptimal arterial phase, however no focal hepatic mass evident. Splenomegaly. The kidneys enhance symmetrically without evidence of hydronephrosis or obstructing calculus. 11 mm right lower pole renal hypodensity, measures approximately 16 HU, higher than expected for simple cyst. The pancreas, adrenal glands, and gallbladder appear unremarkable. Paraesophageal and upper abdominal/splenic varices. Sub cm mesenteric and retroperitoneal lymph nodes, nonspecific. Small to moderate hiatal hernia. The stomach is nondistended. Lack of oral contrast limits evaluation for bowel pathology. The included upper abdominal bowel loops appear within normal limits of caliber without evidence of intestinal obstruction. There is no definite free air. Degenerative changes of the spine. Impression: Partially imaged cardiomegaly. Nodular hepatic contour. Heterogeneous hepatic echotexture. Findings consistent with cirrhosis. Suboptimal arterial phase, however no focal hepatic mass evident. Splenomegaly. 11 mm right lower pole renal hypodensity, measures approximately 16 HU, higher than expected for simple cyst. Suggest ultrasound for further evaluation if indicated. Paraesophageal and upper abdominal/splenic varices. Sub cm mesenteric and retroperitoneal lymph nodes, nonspecific. Small to moderate hiatal hernia.
[2017-02-08] MEDS: Cilostazol 100 mg Tab UD PO SCH (17:54)
--- NOTE | 2017-02-09 02:22 | CON ---
DATE: 02/08/2017 INFECTIOUS DISEASE CONSULTATION REQUESTING PHYSICIAN: Dr. Vaughn. REASON FOR CONSULTATION: Bilateral pneumonia and GI bleed. HISTORY OF PRESENT ILLNESS: The patient is a 46-year-old male with multiple medical problems and formerly [facility] admissions with history of ethanol abuse, cirrhosis, recent TIA. Recommended to be on dual ant iplatelet therapy by neurology, hypertension and hyperlipidemia, who presented with generalized malai se and fatigue for the past 1 week. The patient has been complaining of fatigue and also noticed emeka vated temperatures and chills for the past few days prior to coming here. In the ER, patient was fou nd to have a temperature of 102.7 and also positive occult blood. The patient was therefore advised admission. The patient denies ever having symptoms like this before and states he has never had hist ory of hemorrhoids, constipation. The patient is having cough, but denies any history of hemoptysis or hematemesis. The patient has edema of the legs and also states he has been having increasing flui d in the belly since last admission. The patient was recently admitted for TIA. PAST MEDICAL HISTORY: As above, history of cirrhosis of the liver, recent TIA, hypertension and hype rlipidemia. PAST SURGICAL HISTORY: Consists of appendectomy. FAMILY HISTORY: Noncontributory and patient denies any significant past family history. SOCIAL HISTORY: Prior ethanol abuse. States he quit at the end of December following recent admission. Denies tobacco or illicit drug use. IMMUNIZATION states he did get the influenza vaccination, denies any pneumococcal vaccination and den ies vaccination. MEDICATIONS: As per chart reviewed. The patient was started on Rocephin 1 g once a day and Zithroma x 500 mg 1 dose was given in the ER after appropriate cultures. REVIEW OF SYSTEMS: RESPIRATORY: Complains of shortness of breath or cough. CARDIOVASCULAR SYSTEM: Denies any chest pains, palpitations. Complains of edema of the legs. Denie s claudication or irregular heartbeat. GENITOURINARY: Unremarkable at present. Denies any dysuria, hematuria, discharge incontinence. GASTROINTESTINAL: As above complaints. Denies any diarrhea or constipation, complains of noticing s ome blood on the stool. Denies poor appetite or any change in bowel habits. MUSCULOSKELETAL: As reported. Complains of edema of the legs. CENTRAL NERVOUS SYSTEM: has chronic stasis dermatitis changes with cellulitis and/or pigmented lesio ns. PHYSICAL EXAMINATION: GENERAL: The patient is awake, alert. VITAL SIGNS: Temperature 101, blood pressure 118/70, respirations 20, pulse of 85, pulse ox on admis alexandre was 97%. HEENT: Pupils equal, reactive to light and accommodation. Extraocular movements full. Fundus negat rhys. Sclerae nonicteric. Conjunctivae normal. JVP not elevated. NECK: Appears to be supple. LUNGS: Few rhonchi scattered bilaterally, decreased breath sounds at the bases. CARDIOVASCULAR: S1, S2 regular. No murmur or gallop. ABDOMEN: Slightly distended, but soft. No organomegaly appreciated. Bowel sounds are present. Que stionable there is palpable ascites. EXTREMITIES: Positive pedal edema and chronic stasis dermatitis changes. CENTRAL NERVOUS SYSTEM: Awake, alert: Moves all extremities. Reflexes are equal and symmetrical. Cranial nerves II-XII seem to be intact. Skin is reported dry and warm, but chronic pigmented change s noted in both lower extremities. LABORATORY DATA: WBC is 5.6, H and H of 10.9 and 30.4, platelets 119, sed rate as ordered by 53, CRP as ordered 15, alleviated. CREATININE 0.7, BUN of 7. Albumin 2.6. Stool was positive for occult b lood. Chest x-ray on admission showed cardiomegaly and mild interstitial prominence, which may refle ct her infection or edema. LFTs, creatinine, bilirubin of 1.8, AST of 104, ALT 38, alkaline phosphat ase 116. Creatinine is 0.6, BUN of 6. IMPRESSION: 1. Bilateral interstitial pneumonia, rule out versus atypical pneumonia. 2. Gastrointestinal bleeding question internal hemorrhoids. 3. Cirrhosis of liver with ascites, rule out spontaneous bacterial peritonitis. 4. Recent transient ischemic attack. PLAN: Simmons cultures. As reported, we got sed rate and C-reactive protein, which is elevated. The pa alexandru discontinued IV Rocephin in view of elevated transaminitis and liver metaplasia. Start IV cefe pime 1 g q. 8 hourly for now and add vancomycin 1 g q. 12 hourly for Staph and strep coverage. Follo w up liver function tests and CBC in the morning. Flexographic Press Operator was ordered. Liver CT liver pr otocol triple phase to rule out any hepatoma versus any or any other pathology in the abdomen. We wi ll follow along with you. Thank you very much for allowing me to participate in the care of your patient. GI workup in progres s for the above gastrointestinal bleeding. Leonard Laguerre MD cc: [id number] TT: 02/09/2017 02:21:48 Confirmation # [id number] Dictation # [id number] mn
--- NOTE | 2017-02-09 07:38 | CP.PCM.PN ---
<Rolando Car - Last Filed: 02/09/17 07:36> Subjective - Date & Time of Evaluation Date of Evaluation: 02/09/17 Time of Evaluation: 07:20 - Subjective Subjective: PGY4 GI Fellow Progress Note Patient seen and examined bedside this morning. The patient states that he is feeling much better and is very eager to return home. Admits to a BM yesterday evening without any blood noted. Tolerating diet without issue. No pain. 12 system ROS performed and negative except where stated. Objective - Vital Signs/Intake and Output Vital Signs (last 24 hours): Temp Pulse Resp BP Pulse Ox 98.3 F 84 20 137/82 97 02/08/17 23:55 02/08/17 23:55 02/08/17 23:55 02/08/17 23:55 02/08/17 23:55 Intake and Output: 02/09/17 02/09/17 06:59 18:59 Intake Total 650 Output Total 800 Balance -150 - Medications Medications: Current Medications Aripiprazole (Abilify) 5 mg PO DAILY [facility] Cilostazol (Pletal) 100 mg PO BID [facility] Last Admin: 02/08/17 17:54 Dose: 100 mg Folic Acid (Folic Acid) 1 mg PO DAILY [facility] Furosemide (Lasix) 20 mg PO DAILY [facility] Cefepime HCl 1 gm/ Dextrose 50 mls @ 100 mls/hr IVPB Q8 [facility] Last Admin: 02/09/17 05:08 Dose: 100 mls/hr Vancomycin HCl 1,000 mg/ (Sodium Chloride) 250 mls @ 166.6 mls/hr IVPB Q12H [facility] Last Admin: 02/09/17 00:35 Dose: 166.6 mls/hr Doxycycline Hyclate 100 mg/ (Sodium Chloride) 100 mls @ 100 mls/hr IVPB Q12H [facility] Last Admin: 02/09/17 00:10 Dose: 100 mls/hr Multivitamins (Hexavitamin) 1 tab PO DAILY [facility] Pantoprazole Sodium (Protonix Ec Tab) 40 mg PO DAILY [facility] Pneumococcal Polyvalent Vaccine (Pneumovax 23 Vaccine) 0.5 ml IM .ONCE ONE Stop: 02/09/17 10:01 Spironolactone (Aldactone) 25 mg PO DAILY [facility] Thiamine HCl (Vitamin B1 Tab) 100 mg PO DAILY [facility] Last Admin: 02/08/17 15:05 Dose: 100 mg - Labs Labs: 02/08/17 07:03 02/08/17 07:03 PT 16.0 SECONDS (9.7-12.2) H 02/07/17 15:30 INR 1.4 02/07/17 15:30 APTT 34 SECONDS (21-34) 02/07/17 15:30 - Constitutional Appears: Non-toxic, No Acute Distress, Other (obese) - Eye Exam Eye Exam: EOMI, PERRL - ENT Exam ENT Exam: Mucous Membranes Moist - Respiratory Exam Respiratory Exam: Rales. absent: Clear to Ausculation Bilateral, Rhonchi, Wheezes - Cardiovascular Exam Cardiovascular Exam: RRR, +S1, +S2 - GI/Abdominal Exam GI & Abdominal Exam: Soft, Normal Bowel Sounds. absent: Distended, Firm, Guarding, Rigid, Tenderness, Organomegaly - Extremities Exam Extremities Exam: Pedal Edema - Neurological Exam Neurological Exam: Alert, Awake, Oriented x3 - Psychiatric Exam Psychiatric exam: Normal Affect, Normal Mood - Skin Skin Exam: Dry, Warm Assessment and Plan - Assessment and Plan (Free Text) Assessment: Patient is a 46yo male with PMHx significant for EtOH cirrhosis, recent TIA ( recommended to be on dual antiplatelet therapy by neurology), HTN, HLD who presented to the ED with generalized malaise and fatigue. -Fever, concern for HCAP vs atypical pneumonia - Mycoplasma IgM positive -Hematochezia -EtOH cirrhosis -Recent TIA -HTN -HLD -Morbid obesity Plan: -Continue with antibiotic therapy per ID recommendations, appreciate input -Cultures with NGTD -CT triple phase performed - nodular liver with noted paraesophageal and abdominal/splenic varices noted; no significant ascites -Patient would benefit from screening EGD and colonoscopy -Rectal exam performed yesterday without obvious hemorrhoids or rectal bleeding noted; liquid brown stool -Viral hepatitis serologies previously negative -Diet as tolerated, 2g low Na -EtOH abstinence *Admission MELD-Na: 17; has had previous eval at [facility] per patient <Shelly Cardozo - Last Filed: 02/09/17 11:45> Objective - Vital Signs/Intake and Output Vital Signs (last 24 hours): Temp Pulse Resp BP Pulse Ox 98.0 F 82 20 130/72 97 02/09/17 07:50 02/09/17 07:50 02/09/17 07:50 02/09/17 09:23 02/09/17 07:50 Intake and Output: 02/09/17 02/09/17 06:59 18:59 Intake Total 650 Output Total 800 Balance -150 - Medications Medications: Current Medications Aripiprazole (Abilify) 5 mg PO DAILY [facility] Last Admin: 02/09/17 09:24 Dose: 5 mg Cilostazol (Pletal) 100 mg PO BID [facility] Last Admin: 02/09/17 09:24 Dose: 100 mg Folic Acid (Folic Acid) 1 mg PO DAILY [facility] Last Admin: 02/09/17 09:23 Dose: 1 mg Furosemide (Lasix) 20 mg PO DAILY [facility] Last Admin: 02/09/17 09:23 Dose: 20 mg Cefepime HCl 1 gm/ Dextrose 50 mls @ 100 mls/hr IVPB Q8 [facility] Last Admin: 02/09/17 05:08 Dose: 100 mls/hr Vancomycin HCl 1,000 mg/ (Sodium Chloride) 250 mls @ 166.6 mls/hr IVPB Q12H [facility] Last Admin: 02/09/17 11:32 Dose: 166.6 mls/hr Doxycycline Hyclate 100 mg/ (Sodium Chloride) 100 mls @ 100 mls/hr IVPB Q12H [facility] Last Admin: 02/09/17 11:34 Dose: 100 mls/hr Multivitamins (Hexavitamin) 1 tab PO DAILY [facility] Last Admin: 02/09/17 09:23 Dose: 1 tab Pantoprazole Sodium (Protonix Ec Tab) 40 mg PO DAILY [facility] Last Admin: 02/09/17 09:23 Dose: 40 mg Spironolactone (Aldactone) 25 mg PO DAILY [facility] Last Admin: 02/09/17 09:23 Dose: 25 mg Thiamine HCl (Vitamin B1 Tab) 100 mg PO DAILY [facility] Last Admin: 02/09/17 09:23 Dose: 100 mg - Labs Labs: 02/09/17 08:06 02/09/17 08:06 PT 16.0 SECONDS (9.7-12.2) H 02/07/17 15:30 INR 1.4 02/07/17 15:30 APTT 34 SECONDS (21-34) 02/07/17 15:30 Attending/Attestation - Attestation I have personally seen and examined this patient.: Yes I have fully participated in the care of the patient.: Yes I have reviewed all pertinent clinical information, including history, physical exam and plan: Yes Notes (Text): Patient seen and examined with GI fellow. Agree with his note as documented above with the following additions/exceptions. This is a 46 year old male with h/o EtOH cirrhosis (MELD 17 on admission, currently 10), HTN, HL, recent TIA who presented to the ED with generalized malaise and fatigue. He has a history of rectal bleeding, which has not been reproduced while in hospital and examination yesterday with brown stool. His H/H are stable. Triple phase CT yesterday with cirrhotic changes, no significant ascites or HCC detected. He is found to have Mycoplasma pneumonia. He will need EGD/colonoscopy, which can be electively arranged as outpatient after resolution of acute infectious issues. Please call with any further questions/concerns. 02/09/17 11:44
[2017-02-09 08:13] LABS: BASO # 0.1 K/uL (0.0-0.2); BASO % 1.9 % (0.0-2.0); EOS # 0.1 K/uL (0.0-0.7); EOS % 2.7 % (0.0-4.0); HEMATOCRIT 33.8 % (35.0-51.0); LYMPH # 0.7 K/uL (1.0-4.3); LYMPH % 25.2 % (20.0-40.0); MEAN CELL VOLUME 91.4 fL (80.0-94.0); MEAN CORPUSCULAR HEMOGLOBIN 29.5 pg (27.0-31.0); MEAN CORPUSCULAR HGB CONC 32.3 g/dL (33.0-37.0); MEAN PLATELET VOLUME 8.2 fL (7.2-11.7); MONO # 0.5 K/uL (0.0-0.8); MONO % 17.5 % (0.0-10.0); RED CELL DISTRIBUTION WIDTH 19.1 % (11.5-14.5); WHITE BLOOD COUNT 2.8 K/uL (4.8-10.8)
[2017-02-09 08:32] LABS: ALB/GLOB RATIO 0.5 (1.0-2.1); BILIRUBIN,DIRECT 0.6 mg/dL (0.0-0.4); TOTAL PROTEIN 6.7 g/dL (6.3-8.3)
[2017-02-09 08:33] LABS: ALKALINE PHOSPHATASE 116 U/L (38-126); ALT/SGPT 37 U/L (21-72); AST/SGOT 56 U/L (17-59); CHLORIDE 106 mmol/L (98-107); POTASSIUM 3.6 mmol/L (3.6-5.2); SODIUM 135 mmol/L (132-148)
[2017-02-09 08:35] LABS: ALB/GLOB RATIO 0.5 (1.0-2.1); ALKALINE PHOSPHATASE 113 U/L (38-126); ALT/SGPT 34 U/L (21-72); AST/SGOT 57 U/L (17-59); BILIRUBIN,TOTAL 0.9 mg/dL (0.2-1.3); BLOOD UREA NITROGEN 7 mg/dL (9-20); CARBON DIOXIDE 21 mmol/L (22-30); GFR AFRICAN-AMERICAN > 60
[2017-02-09 08:36] LABS: GLUCOSE,RANDOM 109 mg/dL (75-110)
[2017-02-09] MEDS: Pantoprazole 40 mg EC Tab PO SCH (09:23)
[2017-02-09] MEDS: Multiple Vitamins Tab PO SCH (09:23)
[2017-02-09] MEDS: Cilostazol 100 mg Tab UD PO SCH ×2 (09:24→17:37)
[2017-02-09] MEDS ORDERED: Pneumococcal 23-Valent Vaccine IM ONE (10:00)
--- NOTE | 2017-02-09 11:26 | CP.PCM.PN ---
Subjective - Date & Time of Evaluation Date of Evaluation: 02/09/17 Time of Evaluation: 11:25 - Subjective Subjective: AFEBRILE NO FURTHER GI BLEEDING GI W/U CLD SEC TO ALCOHOL WILL D/W ID FOR AB Objective - Vital Signs/Intake and Output Vital Signs (last 24 hours): Temp Pulse Resp BP Pulse Ox 98.0 F 82 20 130/72 97 02/09/17 07:50 02/09/17 07:50 02/09/17 07:50 02/09/17 09:23 02/09/17 07:50 Intake and Output: 02/08/17 02/09/17 23:59 11:59 Intake Total 540 650 Output Total 800 Balance 540 -150 - Medications Medications: Current Medications Aripiprazole (Abilify) 5 mg PO DAILY [facility] Last Admin: 02/09/17 09:24 Dose: 5 mg Cilostazol (Pletal) 100 mg PO BID [facility] Last Admin: 02/09/17 09:24 Dose: 100 mg Folic Acid (Folic Acid) 1 mg PO DAILY [facility] Last Admin: 02/09/17 09:23 Dose: 1 mg Furosemide (Lasix) 20 mg PO DAILY [facility] Last Admin: 02/09/17 09:23 Dose: 20 mg Cefepime HCl 1 gm/ Dextrose 50 mls @ 100 mls/hr IVPB Q8 [facility] Last Admin: 02/09/17 05:08 Dose: 100 mls/hr Vancomycin HCl 1,000 mg/ (Sodium Chloride) 250 mls @ 166.6 mls/hr IVPB Q12H [facility] Last Admin: 02/09/17 00:35 Dose: 166.6 mls/hr Doxycycline Hyclate 100 mg/ (Sodium Chloride) 100 mls @ 100 mls/hr IVPB Q12H [facility] Last Admin: 02/09/17 00:10 Dose: 100 mls/hr Multivitamins (Hexavitamin) 1 tab PO DAILY [facility] Last Admin: 02/09/17 09:23 Dose: 1 tab Pantoprazole Sodium (Protonix Ec Tab) 40 mg PO DAILY [facility] Last Admin: 02/09/17 09:23 Dose: 40 mg Spironolactone (Aldactone) 25 mg PO DAILY [facility] Last Admin: 02/09/17 09:23 Dose: 25 mg Thiamine HCl (Vitamin B1 Tab) 100 mg PO DAILY [facility] Last Admin: 02/09/17 09:23 Dose: 100 mg - Labs Labs: 02/09/17 08:06 02/09/17 08:06 PT 16.0 SECONDS (9.7-12.2) H 02/07/17 15:30 INR 1.4 02/07/17 15:30 APTT 34 SECONDS (21-34) 02/07/17 15:30
--- NOTE | 2017-02-09 11:51 | CP.PCM.PN ---
Subjective - Date & Time of Evaluation Date of Evaluation: 02/09/17 Time of Evaluation: 11:51 - Subjective Subjective: TEMP DOWN. DENIES FURTHUR GI BLEEDING. LESS SOB TODAY. LESS COUGH. NO ACTIVE BLEEDING TOLERATING DIET. 02/08/17 CT LIVER TRIPLE PHASE NOTED.-NODULAR HEPATIC CONTOUR -SPLENOMEGALY. -paraesophageal and abdominal/ splenic varices noted; no significant ascites (see full report ) LABS ; MRSA NOT DETECTED. ALL CULTURES -VE TO DATE. LFTS N NH3 38 -SLIGHTLY HIGH Objective - Vital Signs/Intake and Output Vital Signs (last 24 hours): Temp Pulse Resp BP Pulse Ox 98.0 F 82 20 130/72 97 02/09/17 07:50 02/09/17 07:50 02/09/17 07:50 02/09/17 09:23 02/09/17 07:50 Intake and Output: 02/09/17 02/09/17 06:59 18:59 Intake Total 650 Output Total 800 Balance -150 - Medications Medications: Current Medications Aripiprazole (Abilify) 5 mg PO DAILY [facility] Last Admin: 02/09/17 09:24 Dose: 5 mg Cilostazol (Pletal) 100 mg PO BID [facility] Last Admin: 02/09/17 09:24 Dose: 100 mg Folic Acid (Folic Acid) 1 mg PO DAILY [facility] Last Admin: 02/09/17 09:23 Dose: 1 mg Furosemide (Lasix) 20 mg PO DAILY [facility] Last Admin: 02/09/17 09:23 Dose: 20 mg Cefepime HCl 1 gm/ Dextrose 50 mls @ 100 mls/hr IVPB Q8 [facility] Last Admin: 02/09/17 05:08 Dose: 100 mls/hr Vancomycin HCl 1,000 mg/ (Sodium Chloride) 250 mls @ 166.6 mls/hr IVPB Q12H [facility] Last Admin: 02/09/17 11:32 Dose: 166.6 mls/hr Doxycycline Hyclate 100 mg/ (Sodium Chloride) 100 mls @ 100 mls/hr IVPB Q12H [facility] Last Admin: 02/09/17 11:34 Dose: 100 mls/hr Multivitamins (Hexavitamin) 1 tab PO DAILY [facility] Last Admin: 02/09/17 09:23 Dose: 1 tab Pantoprazole Sodium (Protonix Ec Tab) 40 mg PO DAILY [facility] Last Admin: 02/09/17 09:23 Dose: 40 mg Spironolactone (Aldactone) 25 mg PO DAILY [facility] Last Admin: 02/09/17 09:23 Dose: 25 mg Thiamine HCl (Vitamin B1 Tab) 100 mg PO DAILY [facility] Last Admin: 02/09/17 09:23 Dose: 100 mg - Labs Labs: 02/09/17 08:06 02/09/17 08:06 PT 16.0 SECONDS (9.7-12.2) H 02/07/17 15:30 INR 1.4 02/07/17 15:30 APTT 34 SECONDS (21-34) 02/07/17 15:30 - Constitutional Appears: No Acute Distress - Head Exam Head Exam: NORMAL INSPECTION - Eye Exam Eye Exam: EOMI, PERRL, Scleral icterus - ENT Exam ENT Exam: Normal Oropharynx - Neck Exam Neck Exam: Normal Inspection - Respiratory Exam Respiratory Exam: Decreased Breath Sounds, Rhonchi - Cardiovascular Exam Cardiovascular Exam: REGULAR RHYTHM, +S1, +S2 - GI/Abdominal Exam GI & Abdominal Exam: Soft, Normal Bowel Sounds, Organomegaly (splenomegaly.). absent: Tenderness, Mass, Rebound - Extremities Exam Extremities Exam: Pedal Edema. absent: Calf Tenderness, Tenderness - Neurological Exam Neurological Exam: Awake, CN II-XII Intact, Normal Gait, Oriented x3, Reflexes Normal - Psychiatric Exam Psychiatric exam: Normal Mood - Skin Skin Exam: Normal Color, Warm Assessment and Plan (1) Pneumonia Status: Acute (2) GI bleeding Status: Acute (3) Bilateral lower extremity edema Status: Acute (4) Transient ischemic attack (TIA) Assessment & Plan: HX OF TIA DURING LAST ADMISSION. Status: Acute (5) Cirrhosis of liver Status: Chronic (6) History of alcohol abuse Status: Chronic (7) PVD (peripheral vascular disease) Status: Chronic - Assessment and Plan (Free Text) Assessment: IMPRESSION; -FEVER. -PNEUMONIA -CAP +VE MYCOPLASMA IGM +VE. - PANCYTOPENIA ?MEDS/ VS LIVER DISEASE. -G I BLEEDING -ETOH ABUSE-CIRRHOSIS OF LIVER -S/P RECENT TIA. -HTN. -HLD -MORBID OBESITY. PLAN; CONTINUE IV CEFEPIME 1GM IVPB Q 8HRLY 02/08/17. DC IV VANCOMYCIN 1GM IVPB [id number]. 02/08/17.IN VIEW OF LEUKOPENIA CONTINUE IV VIBRAMYCIN 100MG IVPB Q 12HRLY. 02/08/17. AWAIT SPUTUM CULTURES TO ADJUST RX. PULMONARY TOILET. F/U FEVER CURVE.
[2017-02-10 01:03] VITALS: TEMP 98.2; O2SAT 97
[2017-02-10 07:37] LABS: CHLORIDE 102 mmol/L (98-107)
[2017-02-10 07:38] LABS: POTASSIUM 3.7 mmol/L (3.6-5.2); SODIUM 137 mmol/L (132-148)
[2017-02-10 07:40] LABS: ALKALINE PHOSPHATASE 121 U/L (38-126); AST/SGOT 58 U/L (17-59); BASO % 0.9 % (0.0-2.0); BILIRUBIN,TOTAL 0.9 mg/dL (0.2-1.3); CARBON DIOXIDE 26 mmol/L (22-30); EOS # 0.1 K/uL (0.0-0.7); EOS % 4.3 % (0.0-4.0); GFR AFRICAN-AMERICAN > 60; HEMATOCRIT 33.6 % (35.0-51.0); LYMPH # 0.8 K/uL (1.0-4.3); LYMPH % 25.5 % (20.0-40.0); MEAN CELL VOLUME 90.5 fL (80.0-94.0); MEAN CORPUSCULAR HEMOGLOBIN 29.6 pg (27.0-31.0); MEAN CORPUSCULAR HGB CONC 32.7 g/dL (33.0-37.0); MEAN PLATELET VOLUME 8.2 fL (7.2-11.7); MONO # 0.5 K/uL (0.0-0.8); MONO % 16.3 % (0.0-10.0); NRBC % 0.1 % (0.0-2.0); RED CELL DISTRIBUTION WIDTH 18.6 % (11.5-14.5); TOTAL PROTEIN 6.8 g/dL (6.3-8.3); WHITE BLOOD COUNT 3.1 K/uL (4.8-10.8)
[2017-02-10 07:41] LABS: ALT/SGPT 35 U/L (21-72); BLOOD UREA NITROGEN 9 mg/dL (9-20); CALCIUM 8.2 mg/dl (8.6-10.4); GLUCOSE,RANDOM 88 mg/dL (75-110)
[2017-02-10 08:02] LABS: ALB/GLOB RATIO 0.7 (1.0-2.1)
[2017-02-10 08:10] VITALS: PULSE 81
[2017-02-10] MEDS: Pantoprazole 40 mg EC Tab PO SCH (09:34)
[2017-02-10] MEDS: Multiple Vitamins Tab PO SCH (09:35)
[2017-02-10 09:37] VITALS: BP 130/72
--- NOTE | 2017-02-10 11:44 | CP.PCM.PN ---
Subjective - Date & Time of Evaluation Date of Evaluation: 02/10/17 Time of Evaluation: 11:44 - Subjective Subjective: EVENTS NOTED . VSS ANXIOUS TO GO HOME. PT SIGNED OUT AMA. CASE DISCUSSED WITH STAFF/PARTS COUNTERPERSON-MS DUPREE. LABS REVIEWED; WBC 3.1- IMPROVING PLT 128 IMPROVING . LFTS -N NOW. Objective - Vital Signs/Intake and Output Vital Signs (last 24 hours): Temp Pulse Resp BP Pulse Ox 98.2 F 81 20 130/72 97 02/10/17 08:08 02/10/17 08:08 02/10/17 08:08 02/10/17 09:34 02/10/17 08:08 Intake and Output: 02/10/17 02/10/17 06:59 18:59 Intake Total 440 Output Total 800 Balance -360 - Medications Medications: Current Medications Aripiprazole (Abilify) 5 mg PO DAILY [facility] Last Admin: 02/09/17 09:24 Dose: 5 mg Cilostazol (Pletal) 100 mg PO BID [facility] Last Admin: 02/09/17 17:37 Dose: 100 mg Folic Acid (Folic Acid) 1 mg PO DAILY [facility] Last Admin: 02/10/17 09:34 Dose: 1 mg Furosemide (Lasix) 20 mg PO DAILY [facility] Last Admin: 02/10/17 09:34 Dose: 20 mg Cefepime HCl 1 gm/ Dextrose 50 mls @ 100 mls/hr IVPB Q8 [facility] Last Admin: 02/10/17 05:39 Dose: 100 mls/hr Doxycycline Hyclate 100 mg/ (Sodium Chloride) 100 mls @ 100 mls/hr IVPB Q12H [facility] Last Admin: 02/09/17 23:56 Dose: 100 mls/hr Multivitamins (Hexavitamin) 1 tab PO DAILY [facility] Last Admin: 02/10/17 09:35 Dose: 1 tab Pantoprazole Sodium (Protonix Ec Tab) 40 mg PO DAILY [facility] Last Admin: 02/10/17 09:34 Dose: 40 mg Spironolactone (Aldactone) 25 mg PO DAILY [facility] Last Admin: 02/10/17 09:34 Dose: 25 mg Thiamine HCl (Vitamin B1 Tab) 100 mg PO DAILY [facility] Last Admin: 02/10/17 09:34 Dose: 100 mg - Labs Labs: 02/10/17 07:19 02/10/17 07:19 PT 16.0 SECONDS (9.7-12.2) H 02/07/17 15:30 INR 1.4 02/07/17 15:30 APTT 34 SECONDS (21-34) 02/07/17 15:30 Assessment and Plan (1) Pneumonia Status: Acute (2) GI bleeding Status: Acute (3) Bilateral lower extremity edema Status: Acute (4) Transient ischemic attack (TIA) Status: Acute (5) Cirrhosis of liver Status: Chronic (6) History of alcohol abuse Status: Chronic (7) PVD (peripheral vascular disease) Status: Chronic
--- NOTE | 2017-02-10 11:48 | CP.PCM.PN ---
<Lucy Rodas - Last Filed: 02/10/17 11:42> Subjective - Date & Time of Evaluation Date of Evaluation: 02/10/17 Time of Evaluation: 11:40 - Subjective Subjective: House resident paged by nursing because the patient wanted to sign out AMA. Patient is currently being treated for pneumonia requiring IV antibiotics. Patient stated that he does not want to stay in the hospital but would like to take the antibiotic he has at home. It was explained to him that these antibiotics are different and that he would need IV abx therapy. He was explained his risks such as worsening or spread of infection, sepsis, pulm or cardiac compensation, and even if not treated. Patient stated he has an appointment with his primary care doctor this Tuesday and will follow up. He signed the AMA for and this was placed in the chart. Lucy Rodas PGY 1 Objective - Vital Signs/Intake and Output Vital Signs (last 24 hours): Temp Pulse Resp BP Pulse Ox 98.2 F 81 20 130/72 97 02/10/17 08:08 02/10/17 08:08 02/10/17 08:08 02/10/17 09:34 02/10/17 08:08 Intake and Output: 02/10/17 02/10/17 06:59 18:59 Intake Total 440 Output Total 800 Balance -360 - Medications Medications: Current Medications Aripiprazole (Abilify) 5 mg PO DAILY [facility] Last Admin: 02/09/17 09:24 Dose: 5 mg Cilostazol (Pletal) 100 mg PO BID [facility] Last Admin: 02/09/17 17:37 Dose: 100 mg Folic Acid (Folic Acid) 1 mg PO DAILY [facility] Last Admin: 02/10/17 09:34 Dose: 1 mg Furosemide (Lasix) 20 mg PO DAILY [facility] Last Admin: 02/10/17 09:34 Dose: 20 mg Cefepime HCl 1 gm/ Dextrose 50 mls @ 100 mls/hr IVPB Q8 [facility] Last Admin: 02/10/17 05:39 Dose: 100 mls/hr Doxycycline Hyclate 100 mg/ (Sodium Chloride) 100 mls @ 100 mls/hr IVPB Q12H [facility] Last Admin: 02/09/17 23:56 Dose: 100 mls/hr Multivitamins (Hexavitamin) 1 tab PO DAILY [facility] Last Admin: 02/10/17 09:35 Dose: 1 tab Pantoprazole Sodium (Protonix Ec Tab) 40 mg PO DAILY [facility] Last Admin: 02/10/17 09:34 Dose: 40 mg Spironolactone (Aldactone) 25 mg PO DAILY [facility] Last Admin: 02/10/17 09:34 Dose: 25 mg Thiamine HCl (Vitamin B1 Tab) 100 mg PO DAILY [facility] Last Admin: 02/10/17 09:34 Dose: 100 mg - Labs Labs: 02/10/17 07:19 02/10/17 07:19 PT 16.0 SECONDS (9.7-12.2) H 02/07/17 15:30 INR 1.4 02/07/17 15:30 APTT 34 SECONDS (21-34) 02/07/17 15:30 <Lex Bazan H - Last Filed: 02/10/17 12:48> Objective - Vital Signs/Intake and Output Vital Signs (last 24 hours): Temp Pulse Resp BP Pulse Ox 98.2 F 81 20 130/72 97 02/10/17 08:08 02/10/17 08:08 02/10/17 08:08 02/10/17 09:34 02/10/17 08:08 Intake and Output: 02/10/17 02/10/17 06:59 18:59 Intake Total 440 Output Total 800 Balance -360 - Labs Labs: 02/10/17 07:19 02/10/17 07:19 PT 16.0 SECONDS (9.7-12.2) H 02/07/17 15:30 INR 1.4 02/07/17 15:30 APTT 34 SECONDS (21-34) 02/07/17 15:30
[2017-02-10] MEDS: Cilostazol 100 mg Tab UD PO SCH (11:49)
--- NOTE | 2017-02-10 13:46 | CP.PCM.DIS ---
Provider - Provider Date of Admission: 02/07/17 17:05 Attending physician: Lucila Vaughn MD Time Spent in preparation of Discharge (in minutes): 30 Hospital Course - Lab Results Lab Results: Micro Results 02/07/17 21:30 Blood Blood Culture - Preliminary NO GROWTH AFTER 48 HOURS 02/07/17 21:00 Blood Blood Culture - Preliminary NO GROWTH AFTER 48 HOURS 02/07/17 Unknown Urine Urine Culture - Final No Growth (<1,000 CFU/ML) Most Recent Lab Values WBC 3.1 K/uL (4.8-10.8) L 02/10/17 07:19 RBC 3.71 Mil/uL (4.40-5.90) L 02/10/17 07:19 Hgb 11.0 g/dL (12.0-18.0) L 02/10/17 07:19 Hct 33.6 % (35.0-51.0) L 02/10/17 07:19 MCV 90.5 fL (80.0-94.0) 02/10/17 07:19 MCH 29.6 pg (27.0-31.0) 02/10/17 07:19 MCHC 32.7 g/dL (33.0-37.0) L 02/10/17 07:19 RDW 18.6 % (11.5-14.5) H 02/10/17 07:19 Plt Count 128 K/uL (130-400) L 02/10/17 07:19 MPV 8.2 fL (7.2-11.7) 02/10/17 07:19 Neut % (Auto) 53.0 % (50.0-75.0) 02/10/17 07:19 Lymph % (Auto) 25.5 % (20.0-40.0) 02/10/17 07:19 [place] % (Auto) 16.3 % (0.0-10.0) H 02/10/17 07:19 Eos % (Auto) 4.3 % (0.0-4.0) H 02/10/17 07:19 Baso % (Auto) 0.9 % (0.0-2.0) 02/10/17 07:19 Neut # 1.6 K/uL (1.8-7.0) L 02/10/17 07:19 Lymph # 0.8 K/uL (1.0-4.3) L 02/10/17 07:19 [place] # 0.5 K/uL (0.0-0.8) 02/10/17 07:19 Eos # 0.1 K/uL (0.0-0.7) 02/10/17 07:19 Baso # 0.0 K/uL (0.0-0.2) 02/10/17 07:19 Neutrophils % (Manual) 81 % (50-75) H 02/08/17 07:03 Band Neutrophils % 7 % (0-2) H 02/08/17 07:03 Lymphocytes % (Manual) 5 % (20-40) L 02/08/17 07:03 Monocytes % (Manual) 7 % (0-10) 02/08/17 07:03 Eosinophils % (Manual) 1 % (0-4) 02/07/17 15:30 Platelet Estimate Slightly decreased (NORMAL) L 02/08/17 07:03 Hypochromasia (manual) Slight 02/07/17 15:30 Anisocytosis (manual) Slight 02/08/17 07:03 ESR 53 mm/hr (0-15) H 02/08/17 07:03 PT 16.0 SECONDS (9.7-12.2) H 02/07/17 15:30 INR 1.4 02/07/17 15:30 APTT 34 SECONDS (21-34) 02/07/17 15:30 Sodium 137 mmol/L (132-148) 02/10/17 07:19 Potassium 3.7 mmol/L (3.6-5.2) 02/10/17 07:19 Chloride 102 mmol/L (98-107) 02/10/17 07:19 Carbon Dioxide 26 mmol/L (22-30) 02/10/17 07:19 Anion Gap 13 (10-20) 02/10/17 07:19 BUN 9 mg/dL (9-20) 02/10/17 07:19 Creatinine 0.6 MG/DL (0.8-1.5) L 02/10/17 07:19 Est GFR ( Amer) > 60 02/10/17 07:19 Est GFR (Non-Af Amer) > 60 02/10/17 07:19 Random Glucose 88 mg/dL (75-110) 02/10/17 07:19 Calcium 8.2 mg/dl (8.6-10.4) L 02/10/17 07:19 Magnesium 1.2 mg/dL (1.6-2.3) L 02/07/17 15:30 Total Bilirubin 0.9 mg/dL (0.2-1.3) 02/10/17 07:19 Direct Bilirubin 0.6 mg/dL (0.0-0.4) H 02/09/17 08:06 GGT 142 U/L (8-78) H 02/09/17 08:06 AST 58 U/L (17-59) 02/10/17 07:19 ALT 35 U/L (21-72) 02/10/17 07:19 Alkaline Phosphatase 121 U/L (38-126) 02/10/17 07:19 Ammonia 38 umol/L (9-33) H 02/09/17 08:06 Lactate Dehydrogenase 558 U/L (313-618) 02/09/17 08:06 Total Creatine Kinase 91 U/L (55-170) 02/07/17 15:30 CK-MB (Mass) < 0.22 ng/mL (0.0-3.38) 02/07/17 15:30 Troponin I, Quant 0.0280 ng/mL (0.00-0.120) 02/07/17 15:30 C-React Prot High Sens > 15.00 mg/L (1.00-3.00) H 02/08/17 07:03 NT-Pro-B Natriuret Pep 208 pg/mL (0-450) 02/07/17 15:30 Total Protein 6.8 g/dL (6.3-8.3) 02/10/17 07:19 Albumin 2.7 g/dL (3.5-5.0) L D 02/10/17 07:19 Globulin 4.1 gm/dL (2.2-3.9) H 02/10/17 07:19 Albumin/Globulin Ratio 0.7 (1.0-2.1) L 02/10/17 07:19 Urine Color Yellow (YELLOW) 02/07/17 15:30 Urine Clarity Clear (Clear) 02/07/17 15:30 Urine pH 6.0 (5.0-8.0) 02/07/17 15:30 Ur Specific [place] 1.014 (1.003-1.030) 02/07/17 15:30 Urine Protein Negative mg/dL (NEGATIVE) 02/07/17 15:30 Urine Glucose (UA) Normal mg/dL (Normal) 02/07/17 15:30 Urine Ketones Negative mg/dL (NEGATIVE) 02/07/17 15:30 Urine Blood Negative (NEGATIVE) 02/07/17 15:30 Urine Nitrate Negative (NEGATIVE) 02/07/17 15:30 Urine Bilirubin Negative (NEGATIVE) 02/07/17 15:30 Urine Urobilinogen 2.0 mg/dL (0.2-1.0) 02/07/17 15:30 Ur Leukocyte Esterase Neg Taylor/uL (Negative) 02/07/17 15:30 Urine WBC (Auto) < 1 /hpf (0-5) 02/07/17 15:30 Urine RBC (Auto) < 1 /hpf (0-3) 02/07/17 15:30 Ur Squamous Epith Cells 1 /hpf (0-5) 02/07/17 15:30 Stool Occult Blood Positive (NEGATIVE) H 02/07/17 15:53 Urine Opiates Screen Negative (NEGATIVE) 02/07/17 15:30 Urine Methadone Screen Negative (NEGATIVE) 02/07/17 15:30 Ur Barbiturates Screen Negative (NEGATIVE) 02/07/17 15:30 Ur Phencyclidine Scrn Negative (NEGATIVE) 02/07/17 15:30 Ur Amphetamines Screen Negative (NEGATIVE) 02/07/17 15:30 U Benzodiazepines Scrn Negative (NEGATIVE) 02/07/17 15:30 U Oth Cocaine Metabols Negative (NEGATIVE) 02/07/17 15:30 U Cannabinoids Screen Negative (NEGATIVE) 02/07/17 15:30 Alcohol, Quantitative < 10 mg/dl (0-10) 02/07/17 15:30 Hepatitis A IgM Ab Negative (NEGATIVE) 02/09/17 09:34 Hep Bs Antigen Negative (NEGATIVE) 02/09/17 09:34 Hep B Core IgM Ab Negative (NEGATIVE) 02/09/17 09:34 Hepatitis C Antibody Negative (NEGATIVE) 02/09/17 09:34 HIV 1&2 Antibody Screen Negative (NEGATIVE) 02/09/17 08:06 Mycoplasma pneumon IgM Positive (NEGATIVE) H 02/08/17 07:03 - Hospital Course Hospital Course: 46 years or alcoholic male admitted with chills, fever, cough expectoration and shortness of breath. Chest x-ray showed possible pneumonia and patient had a fever of 101 in the emergency room. Patient also is complaining of blood in the stool. Patient is a chronic alcoholic cirrhosis of liver with multiple admissions for edema of legs, ascites and liver failure. Patient was also admitted recently for TIA and with ongoing urological workup were negative. ID.GI CONSULTED GI: CLD NO INTERVENTION NOW , COLONOSCOPY LATER HE WAS NOT BLEEDING ACTIVELY ID : MYCOPLASMA WAS POS AND IV AB WAS GIVEN BEFORE COMPLETE W/U AND TREATMENT PT SIGNED OUT AMA REFUSED TO TAKE AB RX Discharge Exam - Head Exam Head Exam: NORMAL INSPECTION Discharge Plan - Follow Up Plan Condition: FAIR Disposition: AGAINST MEDICAL ADVICE
== END 2017-02-10 12:00 | disposition left against medical advice (07) | DRG 194 ==
LOC: C.ER 13:57 → C.9E 17:05 → C.3T 17:37
PROVIDERS: ADMIT Internal Medicine Cardiovascular Disease; ATTEND Internal Medicine Cardiovascular Disease
DX: J15.7 Pneumonia due to Mycoplasma pneumoniae (principal); D61.818 Other pancytopenia; I85.10 Secondary esophageal varices without bleeding; Z68.42 Body mass index [BMI] 45.0-49.9, adult; J44.0 Chronic obstructive pulmonary disease with (acute) lower respiratory infection; E66.01 Morbid (severe) obesity due to excess calories; I10 Essential (primary) hypertension; K70.31 Alcoholic cirrhosis of liver with ascites; F10.21 Alcohol dependence, in remission; F31.9 Bipolar disorder, unspecified; I73.9 Peripheral vascular disease, unspecified; I86.8 Varicose veins of other specified sites; F20.9 Schizophrenia, unspecified; E78.5 Hyperlipidemia, unspecified; K64.8 Other hemorrhoids; Z86.73 Personal history of transient ischemic attack (TIA), and cerebral infarction without residual deficits; Z90.49 Acquired absence of other specified parts of digestive tract; Z91.19 Patient's noncompliance with other medical treatment and regimen

== ENCOUNTER 2017-04-20 23:20 | Observation (INO) | payer MEDICARE, OTHER ==
[2017-04-20 23:20] VITALS: BMI 47.0
[2017-04-20] MEDS ORDERED: Lidocaine 2% w Epi 1:100,000 Inj IJ ONE (23:49)
--- NOTE | 2017-04-20 23:55 | CT ---
EXAM: CT Head Without Intravenous Contrast CLINICAL HISTORY: 46 years old, male; Injury or trauma; Fall; Initial encounter; Laceration; Without residual foreign body; Head, generalized; Additional info: Laceration with hematoma TECHNIQUE: Axial computed tomography images of the head/brain without intravenous contrast. All CT scans at this facility use one or more dose reduction techniques, viz.: automated exposure control; ma/kV adjustment per patient size (including targeted exams where dose is matched to indication; i.e. head); or iterative reconstruction technique. COMPARISON: CT - HEAD W/O CONTRAST 01/20/2016 7:52:23 AM FINDINGS: Brain: No acute intracranial hemorrhage. No significant white matter disease. No edema. Ventricles: No significant ventriculomegaly. Bones: No acute displaced fracture. Sinuses: Unremarkable as visualized. No acute sinusitis. Mastoid air cells: Unremarkable as visualized. No mastoid effusion. Left posterior parietal scalp hematoma IMPRESSION: No acute intracranial hemorrhage, or suspicious mass effect. Left posterior parietal scalp hematoma without underlying fracture.
--- NOTE | 2017-04-21 00:33 | C.PDOC ---
History Of Present Illness <Brett Avelar R - Last Filed: 04/21/17 06:37> <Ulysses Bunch - Last Filed: 04/21/17 11:11> 46 y/o male brought in by EMS due to alcohol intoxication. Patient was drinking where he fell and had a "Y" shape laceration to the right occipital-parietal area. Patient admits to drinking. Denies LOC, weakness, numbness, fever, chills , or any other complaints. (Brett Avelar R) History Per: Patient History/Exam Limitations: no limitations Onset/Duration Of Symptoms: Hrs Current Symptoms Are (Timing): Still Present Location Of Injury: Posterior: Hand (Occipital-parietal area) Severity: Mild Recent travel outside of the [place]: No Additional History Per: Patient <Brett Avelar - Last Filed: 04/21/17 06:37> <Ulysses Bunch - Last Filed: 04/21/17 11:11> Time Seen by Provider: 04/21/17 00:00 Chief Complaint (Nursing): Abnormal Skin Integrity Past Medical History Reviewed: Historical Data, Nursing Documentation, Vital Signs - Medical History PMH: Anxiety, Arthritis (BACK,KNEES), Asthma, Bipolar Disorder, CHF, COPD ( ASTHMA), Depression, HTN, Schizophrenia Denies: Alzheimer's Disease, Dementia, Hypothyroidism, Migraine, Multiple Sclerosis, Parkinson's Disease, Chronic Kidney Disease, Rheumatoid Arthritis, Seizures, TIA Surgical History: Appendectomy Denies: Pacemaker Family History: States: Unknown Family Hx - Social History Hx Tobacco Use: No Hx Alcohol Use: No Hx Substance Use: No - Immunization History Hx Tetanus Toxoid Vaccination: No Hx Influenza Vaccination: Yes Hx Pneumococcal Vaccination: No <Brett Avelar - Last Filed: 04/21/17 06:37> Review Of Systems Except As Marked, All Systems Reviewed And Found Negative. Constitutional: Positive for: Other (Alcohol intoxication). Negative for: Fever , Chills Skin: Positive for: Lesions ("Y" shape laceration to the right occipital- parietal area) Neurological: Negative for: Weakness, Numbness, Other (LOC) <Brett Avelar - Last Filed: 04/21/17 06:37> Physical Exam - Physical Exam Appears: Non-toxic, No Acute Distress, Other (Alcohol intoxication, (+) AOB) Skin: Warm, Dry Head: Normacephalic, Laceration (10cm laceration to the left parietal area) Eye(s): bilateral: Normal Inspection, PERRL, EOMI Chest: Symmetrical Cardiovascular: Rhythm Regular Respiratory: Normal Breath Sounds, No Rales, No Rhonchi, No Wheezing Gastrointestinal/Abdominal: Soft, No Tenderness Back: Normal Inspection, No CVA Tenderness Neurological/Psych: Other (Awake and alert) <Brett Avelar R - Last Filed: 04/21/17 06:37> ED Course And Treatment - Laboratory Results Result Diagrams: 04/21/17 00:57 04/21/17 00:57 O2 Sat by Pulse Oximetry: 98 (RA) Pulse Ox Interpretation: Normal - CT Scan/US CH Head w/o Other Rad Studies (CT/US): Interpreted By Me, Read By Radiologist CT/US Interpretation: EXAM: CT Head Without Intravenous Contrast. CLINICAL HISTORY: 46 years old, male; Injury or trauma; Fall; Initial encounter; Laceration; Without residual foreign body;. Head, generalized; Additional info : Laceration with hematoma. TECHNIQUE: Axial computed tomography images of the head/brain without intravenous contrast. All CT scans at. this facility use one or more dose reduction techniques, viz.: automated exposure control; ma/ kV. adjustment per patient size (including targeted exams where dose is matched to indication; i.e. head);. or iterative reconstruction technique. COMPARISON: CT - HEAD W/O CONTRAST 01/20/2016 7:52:23 AM. FINDINGS: Brain: No acute intracranial hemorrhage. No significant white matter disease. No edema. Ventricles: No significant ventriculomegaly. Bones: No acute displaced fracture. Sinuses: Unremarkable as visualized. No acute sinusitis. Mastoid air cells: Unremarkable as visualized. No mastoid effusion. Left posterior parietal scalp hematoma. IMPRESSION: No acute intracranial hemorrhage, or suspicious mass effect. Left posterior parietal scalp hematoma without underlying fracture. <Brett Avelar R - Last Filed: 04/21/17 06:37> - Laboratory Results Result Diagrams: 04/21/17 00:57 04/21/17 00:57 <Ulysses Bunch T - Last Filed: 04/21/17 11:11> Laceration - Laceration Repair Right occipital-parietal area Wound Length (In cm): 10 Description Of Wound: Irregular (Y shaped) Wound Cleansed With: Sterile Saline Anesthesia: Lidocaine 1% Wound Examination: Irrigated With Saline Wound Closure: Suture (x9) Suture Technique And Material Used: Nylon (4.0) Wound Complexity: Intermediate <Brett Avelar - Last Filed: 04/21/17 06:37> Medical Decision Making <Brett Avelar - Last Filed: 04/21/17 06:37> <Ulysses Bunch - Last Filed: 04/21/17 11:11> Medical Decision Making: Impression: 46 y/o male brought in by EMS due to alcohol intoxication. Laceration to the right occipital-parietal area. Plans: * Blood work up * UA (Brett Avelar) 1110: Patient awake, alert, steady gait. Will discharge. (Ulysses Bunch) Disposition - Disposition Disposition Time: 07:00 <Brett Avelar - Last Filed: 04/21/17 06:37> <Ulysses Bunch - Last Filed: 04/21/17 11:11> - Disposition Disposition: HOME/ ROUTINE Condition: STABLE - Clinical Impression Clinical Impression: Laceration, Alcohol abuse - Scribe Statement The provider has reviewed the documentation as recorded by the Scribe <Brett Avelar - Last Filed: 04/21/17 06:37> <Ulysses Bunch - Last Filed: 04/21/17 11:11> - Scribe Statement Cih hoff All medical record entries made by the Scribe were at my direction and personally dictated by me. I have reviewed the chart and agree that the record accurately reflects my personal performance of the history, physical exam, medical decision making, and the department course for this patient. I have also personally directed, reviewed, and agree with the discharge instructions and disposition. (Brett Avelar) Physician Patient Turnover Patient Signed Over To: Ulysses Bunch Handoff Comments: pending sobriety, had lacerationof left occipito-parietal area ( sutured). CT of head was negative except for scalp hematoma. <Brett Avelar - Last Filed: 04/21/17 06:37>
[2017-04-21 01:19] LABS: BASO % 0.5 % (0.0-2.0); EOS % 0.4 % (0.0-4.0); HEMATOCRIT 34.8 % (35.0-51.0); LYMPH # 0.7 K/uL (1.0-4.3); LYMPH % 14.4 % (20.0-40.0); MEAN CORPUSCULAR HEMOGLOBIN 31.3 pg (27.0-31.0); MEAN PLATELET VOLUME 8.7 fL (7.2-11.7); MONO # 0.9 K/uL (0.0-0.8); MONO % 17.5 % (0.0-10.0); NRBC % 0.2 % (0.0-2.0); RED CELL DISTRIBUTION WIDTH 27.3 % (11.5-14.5)
[2017-04-21 01:25] LABS: CHLORIDE 97 mmol/L (98-107); SODIUM 133 mmol/L (132-148)
[2017-04-21 01:26] LABS: POTASSIUM 3.5 mmol/L (3.6-5.2)
[2017-04-21 01:28] LABS: ALB/GLOB RATIO 0.5 (1.0-2.1); ALKALINE PHOSPHATASE 249 U/L (38-126); ALT/SGPT 70 U/L (21-72); AST/SGOT 293 U/L (17-59); CARBON DIOXIDE 16 mmol/L (22-30); GFR AFRICAN-AMERICAN > 60; GLUCOSE,RANDOM 121 mg/dL (75-110); TOTAL PROTEIN 8.1 g/dL (6.3-8.3)
[2017-04-21 01:29] LABS: CALCIUM 7.9 mg/dl (8.6-10.4)
[2017-04-21 01:36] LABS: BLOOD UREA NITROGEN 2 mg/dL (9-20)
[2017-04-21 01:52] LABS: ALCOHOL SERUM 384 mg/dl (0-10)
[2017-04-21 02:40] LABS: RBC URINE 1 /hpf (0-3); URINE BACTERIA RARE (<OCC); URINE BILIRUBIN 1+ (NEGATIVE); URINE COLOR Amber (YELLOW); URINE GLUCOSE (UA) NORMAL (Normal); URINE KETONE NEGATIVE (NEGATIVE); URINE LEUKOCYTE ESTERASE NEG Leu/uL (Negative); URINE PROTEIN NEGATIVE (NEGATIVE); WBC URINE 2 /hpf (0-5)
[2017-04-21 02:41] LABS: URINE BLOOD NEGATIVE (NEGATIVE)
[2017-04-21 10:42] VITALS: BP 120/80; PULSE 82; RESP 17; TEMP 97.9; O2SAT 99
== END 2017-04-21 11:11 | disposition home or self-care (01) ==
LOC: C.ER 23:20 → C.9OBSV 04-21 03:15
PROVIDERS: ADMIT Emergency Medicine; ATTEND Emergency Medicine
DX: F10.120 Alcohol abuse with intoxication, uncomplicated (principal); Y90.8 Blood alcohol level of 240 mg/100 ml or more; I11.0 Hypertensive heart disease with heart failure; I50.9 Heart failure, unspecified; J44.9 Chronic obstructive pulmonary disease, unspecified; F31.9 Bipolar disorder, unspecified; T14.8 Other injury of unspecified body region; W18.30XA Fall on same level, unspecified, initial encounter
CPT/HCPCS: 12004; 70450; 80053; 81001; 85025; 90471; 90715; 94770; G0378; G0480

== ENCOUNTER 2017-04-24 11:18 | Inpatient (IN) | payer MEDICARE, OTHER ==
[2017-04-24] MEDS ORDERED: Alum-Mag Hydrox-Simethicone Susp (30 mL) PO STA (13:11)
[2017-04-24] MEDS ORDERED: Aluminum Hydroxide/Magnesium Hydroxide Susp (30 mL) ONE (13:30)
--- NOTE | 2017-04-24 13:46 | C.PDOC ---
History Of Present Illness Patient is a 46 year old male, with history of liver disease, presents to ED for removal of his head laceration sutures. While in the ED, he also reports mild epigastric abdominal pain associated with nausea and vomiting. Otherwise, denies any urinary symptoms, bowel/bladder incontinence, back pain, fever, or chills. Patient was in this ED 3 days ago with a head laceration. His previous charts can be found by searching by name Fawad Loya. Time Seen by Provider: 04/24/17 12:07 Chief Complaint (Nursing): Abdominal Pain History Per: Patient History/Exam Limitations: no limitations Onset/Duration Of Symptoms: Days Current Symptoms Are (Timing): Still Present Severity: Mild Location Of Pain/Discomfort: Epigastric Quality Of Discomfort: "Pain" Associated Symptoms: Nausea, Vomiting, Diarrhea. denies: Fever, Chills, Loss Of Appetite, Back Pain, Chest Pain, Constipation, Urinary Symptoms Exacerbating Factors: None Alleviating Factors: None Recent travel outside of the [place]: No Additional History Per: Patient Past Medical History Reviewed: Historical Data, Nursing Documentation, Vital Signs Vital Signs: Last Vital Signs Temp 98.2 F 04/24/17 11:26 Pulse 94 H 04/24/17 14:57 Resp 16 04/24/17 14:57 BP 116/74 04/24/17 14:57 Pulse Ox 97 04/24/17 17:27 Surgical History: Appendectomy Family History: States: No Known Family Hx - Social History Hx Alcohol Use: Yes Hx Substance Use: No - Immunization History Hx Tetanus Toxoid Vaccination: No Hx Influenza Vaccination: No Hx Pneumococcal Vaccination: No Review Of Systems Except As Marked, All Systems Reviewed And Found Negative. Constitutional: Negative for: Fever, Chills Gastrointestinal: Positive for: Nausea, Vomiting, Abdominal Pain. Negative for : Constipation, Melena, Hematochezia, Hematemesis Genitourinary: Negative for: Dysuria, Frequency, Incontinence, Hematuria Musculoskeletal: Negative for: Back Pain Physical Exam - Physical Exam Additional Physical Exam Comments: Constitutional: No acute distress. Head: Normocephalic. Atraumatic. Sutures intact over the left scalp. Eyes: PERRL. Scleral icterus. ENT: Moist mucous membranes. Neck: Supple. Cardiovascular: Regular rate. Radial pulse 2+ bilaterally. Chest: No tenderness. Respiratory: Clear to auscultation bilaterally. GI: Soft. Nontender. Distended. Fluid filled. Back: No CVA tenderness. Musculoskeletal: No tenderness to extremities. Swelling to bilateral legs. Skin: No rash. Jaundice. Chronic skin changes to bilateral legs. Neurologic: Alert, no focal deficit. ED Course And Treatment - Laboratory Results Result Diagrams: 04/24/17 13:49 04/24/17 13:49 O2 Sat by Pulse Oximetry: 97 (RA) Pulse Ox Interpretation: Normal Medical Decision Making Medical Decision Making: Plan: Blood work Patient was given Pepcid, Zofran, and Maalox. On re-evaluation, abdomen remains soft and non-tender. No acute distress. Patient reports nausea gone but mild abdominal pain remains but is improved. Sutures too early to be removed, laceration appears to be healing well. Hyperbilirubinemia found on labs, which was present 3 days ago but normal few months ago. Will further evaluate with CT. ED OBSERVATION Date of observation admission: 04/24/17 Time of observation admission: 14:20 - Observation admission statement Patient is being placed in observation because:: hyperbili - Goals of Observation Goals of observation are:: CT - Progress Note Progress Note: [address] No distress. 1620 CT performed, pending read. 1727 FINDINGS: LOWER THORAX: Cardiomegaly is noted. No pleural or pericardial effusion. A mild hiatal hernia identified. LIVER: Hepatomegaly is appreciate with gross lucency compatible with diffuse fatty infiltration. An nodular peripheral surface appreciated with cirrhosis. Focal fatty sparing versus infiltrative mass seen at the right lobe posterior superiorly, poorly marginated measuring some 9 cm greatest dimension. Follow-up MRI is advised for greater characterization (with and without contrast). GALLBLADDER AND BILE DUCTS: Unremarkable. PANCREAS: Unremarkable. No gross lesion or ductal dilatation. SPLEEN: Splenomegaly to 17.1 cm. No focal mass identified. However, splenorenal varices are appreciated. ADRENALS: Unremarkable. No mass. KIDNEYS AND URETERS: A small cyst is identified at the lower pole right kidney. . No hydronephrosis. No solid mass. 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 Splenorenal varices are identified as discussed above. Normal abdominal aorta with a moderately prominent inferior vena cava normal right heart volume grossly appreciated. BOWEL: A nonspecific bowel gas pattern appreciated there is no small bowel obstruction appreciable grossly. Few nonacute diverticular seen at the cecum as well as the left hemicolon. APPENDIX: Not identified. No definite appendicitis pattern appreciable at the right lower quadrant however. PERITONEUM: Limited lower abdominal pelvic ascites identified. No free intrarenal gas. LYMPH NODES: Mild periaortic lymphadenopathy is noted up to 1.5 cm greatest dimension however prominent inguinal lymphadenopathy is appreciated including a right inguinal lymph node measuring 4.6 x 2.5 cm and a left inguinal lymph node measuring 4.0 x 2.2 cm. An inferior left iliac lymph node measures 3.4 x 2.0 cm with a 2.3 x 2.0 cm right iliac lymph node. BLADDER: Unremarkable. REPRODUCTIVE: Unremarkable. BONES: No acute fracture. OTHER FINDINGS: Levoscoliotic lumbar spinal deformity. IMPRESSION: 1. Hepatosplenomegaly is appreciated with evidence of hepatofugal blood flow including extensive esophageal, gastrohepatic and splenorenal varices. Cirrhosis liver pattern is identified. Further, extensive diffuse fatty infiltration is appreciate with probable focal fatty sparing at the right lobe posteriorly versus potential infiltrative mass up to 9 cm. Follow-up MRI without contrast is advised for additional characterization. 2. Mild lower abdominal/pelvis ascites. 3. Right renal cyst. 4. Moderate bilateral iliac and severe inguinal lymphadenopathy. 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 Disposition Discussed With : Kelli Flores Doctor Will See Patient In The: Hospital - Disposition Disposition: HOME/ ROUTINE Disposition Time: 14:20 Condition: FAIR - Clinical Impression Clinical Impression: Hyperbilirubinemia, Liver cirrhosis, Scalp laceration - Scribe Statement The provider has reviewed the documentation as recorded by the Shanna Flores All medical record entries made by the Shanna were at my direction and personally dictated by me. I have reviewed the chart and agree that the record accurately reflects my personal performance of the history, physical exam, medical decision making, and the department course for this patient. I have also personally directed, reviewed, and agree with the discharge instructions and disposition.
[2017-04-24 13:56] LABS: BASO % 0.3 % (0.0-2.0); EOS % 0.2 % (0.0-4.0); HEMATOCRIT 30.3 % (35.0-51.0); LYMPH # 0.6 K/uL (1.0-4.3); LYMPH % 13.5 % (20.0-40.0); MEAN CELL VOLUME 93.3 fL (80.0-94.0); MEAN CORPUSCULAR HEMOGLOBIN 31.6 pg (27.0-31.0); MEAN CORPUSCULAR HGB CONC 33.8 g/dL (33.0-37.0); MEAN PLATELET VOLUME 8.5 fL (7.2-11.7); MONO # 0.8 K/uL (0.0-0.8); MONO % 18.7 % (0.0-10.0); NRBC % 0.7 % (0.0-2.0); RED CELL DISTRIBUTION WIDTH 28.9 % (11.5-14.5); WHITE BLOOD COUNT 4.2 K/uL (4.8-10.8)
[2017-04-24 14:06] LABS: INR 2.4
[2017-04-24 14:09] LABS: CHLORIDE 97 mmol/L (98-107); SODIUM 135 mmol/L (132-148)
[2017-04-24 14:10] LABS: POTASSIUM 3.6 mmol/L (3.6-5.2)
[2017-04-24 14:12] LABS: ALB/GLOB RATIO 0.5 (1.0-2.1); ALKALINE PHOSPHATASE 225 U/L (38-126); AST/SGOT 367 U/L (17-59); BILIRUBIN,TOTAL 12.6 mg/dL (0.2-1.3); BLOOD UREA NITROGEN 5 mg/dL (9-20); CARBON DIOXIDE 25 mmol/L (22-30); GFR AFRICAN-AMERICAN > 60; GLUCOSE,RANDOM 98 mg/dL (75-110); TOTAL PROTEIN 8.1 g/dL (6.3-8.3)
[2017-04-24 14:13] LABS: ALT/SGPT 68 U/L (21-72); CALCIUM 7.9 mg/dl (8.6-10.4)
[2017-04-24] MEDS ORDERED: Iodixanol 320 MG/ML 100 ML BOTTLE IV ONE (15:57)
--- NOTE | 2017-04-24 17:24 | CT ---
PROCEDURE: CT Abdomen and Pelvis with contrast HISTORY: hyperbilirubinemia COMPARISON: None. TECHNIQUE: Contrast dose: Visipaque 320, 100 cc Radiation dose: Total exam DLP = 1173 mGy-cm. This CT exam was performed using one or more of the following dose reduction techniques: Automated exposure control, adjustment of the mA and/or kV according to patient size, and/or use of iterative reconstruction technique. FINDINGS: LOWER THORAX: Cardiomegaly is noted. No pleural or pericardial effusion. A mild hiatal hernia identified. LIVER: Hepatomegaly is appreciate with gross lucency compatible with diffuse fatty infiltration. An nodular peripheral surface appreciated with cirrhosis. Focal fatty sparing versus infiltrative mass seen at the right lobe posterior superiorly, poorly marginated measuring some 9 cm greatest dimension. Follow-up MRI is advised for greater characterization (with and without contrast). GALLBLADDER AND BILE DUCTS: Unremarkable. PANCREAS: Unremarkable. No gross lesion or ductal dilatation. SPLEEN: Splenomegaly to 17.1 cm. No focal mass identified. However, splenorenal varices are appreciated. ADRENALS: Unremarkable. No mass. KIDNEYS AND URETERS: A small cyst is identified at the lower pole right kidney. . No hydronephrosis. No solid mass. 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 Splenorenal varices are identified as discussed above. Normal abdominal aorta with a moderately prominent inferior vena cava normal right heart volume grossly appreciated. BOWEL: A nonspecific bowel gas pattern appreciated there is no small bowel obstruction appreciable grossly. Few nonacute diverticular seen at the cecum as well as the left hemicolon. APPENDIX: Not identified. No definite appendicitis pattern appreciable at the right lower quadrant however. PERITONEUM: Limited lower abdominal pelvic ascites identified. No free intrarenal gas. LYMPH NODES: Mild periaortic lymphadenopathy is noted up to 1.5 cm greatest dimension however prominent inguinal lymphadenopathy is appreciated including a right inguinal lymph node measuring 4.6 x 2.5 cm and a left inguinal lymph node measuring 4.0 x 2.2 cm. An inferior left iliac lymph node measures 3.4 x 2.0 cm with a 2.3 x 2.0 cm right iliac lymph node. BLADDER: Unremarkable. REPRODUCTIVE: Unremarkable. BONES: No acute fracture. OTHER FINDINGS: Levoscoliotic lumbar spinal deformity. IMPRESSION: 1. Hepatosplenomegaly is appreciated with evidence of hepatofugal blood flow including extensive esophageal, gastrohepatic and splenorenal varices. Cirrhosis liver pattern is identified. Further, extensive diffuse fatty infiltration is appreciate with probable focal fatty sparing at the right lobe posteriorly versus potential infiltrative mass up to 9 cm. Follow-up MRI without contrast is advised for additional characterization. 2. Mild lower abdominal/pelvis ascites. 3. Right renal cyst. 4. Moderate bilateral iliac and severe inguinal lymphadenopathy.
[2017-04-25 08:08] LABS: BASO % 0.7 % (0.0-2.0); HEMATOCRIT 28.2 % (35.0-51.0); LYMPH # 0.7 K/uL (1.0-4.3); LYMPH % 17.2 % (20.0-40.0); MEAN CORPUSCULAR HEMOGLOBIN 32.1 pg (27.0-31.0); MEAN CORPUSCULAR HGB CONC 34.5 g/dL (33.0-37.0); MEAN PLATELET VOLUME 7.9 fL (7.2-11.7); MONO # 0.7 K/uL (0.0-0.8); MONO % 17.4 % (0.0-10.0); NRBC % 0.1 % (0.0-2.0); RED CELL DISTRIBUTION WIDTH 28.8 % (11.5-14.5); WHITE BLOOD COUNT 4.2 K/uL (4.8-10.8)
[2017-04-25 08:42] LABS: CHLORIDE 98 mmol/L (98-107); POTASSIUM 3.3 mmol/L (3.6-5.2); SODIUM 134 mmol/L (132-148)
[2017-04-25 08:43] LABS: BILIRUBIN,DIRECT 9.4 mg/dL (0.0-0.4)
[2017-04-25 08:44] LABS: ALB/GLOB RATIO 0.5 (1.0-2.1); ALCOHOL SERUM < 10 mg/dl (0-10); ALKALINE PHOSPHATASE 217 U/L (38-126); ALT/SGPT 70 U/L (21-72); AST/SGOT 301 U/L (17-59); BILIRUBIN,TOTAL 11.3 mg/dL (0.2-1.3); BLOOD UREA NITROGEN 6 mg/dL (9-20); CARBON DIOXIDE 26 mmol/L (22-30); GFR AFRICAN-AMERICAN > 60; TOTAL PROTEIN 7.7 g/dL (6.3-8.3)
[2017-04-25 08:45] LABS: CALCIUM 7.6 mg/dl (8.6-10.4); GLUCOSE,RANDOM 82 mg/dL (75-110); MAGNESIUM 1.2 mg/dL (1.6-2.3); PHOSPHOROUS 1.8 mg/dL (2.5-4.5)
[2017-04-25 08:52] LABS: URINE COLOR AMBER (YELLOW)
[2017-04-25 08:53] LABS: URINE BILIRUBIN 2+ (NEGATIVE); URINE BLOOD NEGATIVE (NEGATIVE); URINE GLUCOSE (UA) Normal (Normal); URINE KETONE TRACE mg/dL (NEGATIVE); URINE PROTEIN 1+ mg/dL (NEGATIVE)
[2017-04-25 08:54] LABS: RBC URINE 2 /hpf (0-3); URINE LEUKOCYTE ESTERASE NEGATIVE Leu/uL (Negative); WBC URINE 4 /hpf (0-5)
--- NOTE | 2017-04-25 09:01 | CP.PCM.CON ---
<Kaitlynn Flores - Last Filed: 04/25/17 12:59> History of Present Illness - History of Present Illness History of Present Illness: PGY4 GI Fellow Consult Note Fawad Loya is a 46yo male with PMHx significant for EtOH cirrhosis, recent TIA, HTN, HLD who presented to the ED to remove his sutures on his head post fall 1 month ago. The reason for GI consult was for incidental findings of hyperbilirubinemia. 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 He states that he does not follow -up with GI. He notes that his PCP was trying to coordinate is diagnosis and tx. He reports going to [facility] in [place], [place] many years ago for work-up, but never followed up. Pt was recently seen by our service 1 month ago during his previous hospitalization post fall. He had a triple phase liver CT done at the time and it did not reveal any sig. mass indicating HCC. Pt denies any abd pain. He notes that he occasionally sees blood on his toilet paper after wiping and straining. He has never had any endoscopy. States that his last drink was 2 months ago, but last admission states that he was intoxication upon presentation for fall. Denies any hematemesis, pruritus, jaundice, nausea, vomiting, weight loss. CT Abd Pelvis 04/24/17 with IV contrast -hepatomegaly -esophageal, gastric and splenic varices -Cirrhosis -mass vs fatty infiltrate in right stereotype finisher hepatic lobe (9cm) PMHx: See HPI PSHx: Appendectomy FHx: Discussed with patient and denies any significant FHx Social: Prior EtOH abuse (quit end of December following recent admission); Denies tobacco or illicit drug use Endo: No prior endoscopic evaluations 12-point ROS conducted, neg other than previously stated above Past Patient History - Infectious Disease Hx of Infectious Diseases: None - Past Medical History & Family History Past Medical History?: Yes - Past Social History Smoking Status: Former Smoker - CARDIAC Hx Cardiac Disorders: No - PULMONARY Hx Respiratory Disorders: No - NEUROLOGICAL Hx Neurological Disorder: No - HEENT Hx HEENT Problems: No - RENAL Hx Chronic Kidney Disease: No - ENDOCRINE/METABOLIC Hx Endocrine Disorders: No - HEMATOLOGICAL/ONCOLOGICAL Hx Blood Disorders: Yes Hx AIDS: No Hx Anemia: No Hx Blood Transfusions: No Hx Blood Transfusion Reaction: No Hx Bruising: No Hx Cancer: No Hx Chemotherapy: No Hx Cirrhosis: Yes Hx Gum Bleeding: No Hx Hemophilia: No Hx Hepatitis A: No Hx Hepatitis B: No Hx Hepatitis C: No Hx Human Immunodeficiency Virus (HIV): No Hx Leukemia: No Hx Metastesis: No Hx Shingles: No Hx Sickle Cell Disease: No Hx Unexplained Bleeding: No Hx von Willebrand's Disease: No - INTEGUMENTARY Hx Dermatological Problems: No - MUSCULOSKELETAL/RHEUMATOLOGICAL Hx Falls: Yes - GASTROINTESTINAL Hx Gastrointestinal Disorders: No - GENITOURINARY/GYNECOLOGICAL Hx Genitourinary Disorders: No - PSYCHIATRIC Hx Substance Use: No - SURGICAL HISTORY Hx Surgeries: Yes Hx Abdominal Aortic Aneurysm Repair: No Hx Amputation: No Hx Angiogram: No Hx Angioplasty: No Hx Appendectomy: Yes Hx Arteriovenous Shunt: No Hx Arthroscopy: No Hx Bile Duct Stent: No Hx Breast Biopsy: No Hx Cataract Extraction: No Hx Cardiac Catheterization: No Hx Carotid Endarterectomy: No Hx Section: No Hx Cholecystectomy: No Hx Coronary Artery Bypass Graft: No Hx Coronary Stent: No Hx Dilation and Curettage: No Hx Eye Surgery: No Hx Femoral-Popliteal Bypass Graft: No Hx Gastric Bypass Surgery: No Hx Herniorrhaphy: No Hx Hysterectomy: No Hx Joint Replacement: No Hx Kidney Transplant: No Hx Liver Transplant: No Hx Mastectomy: No Hx Musculoskeletal Surgery: No Hx Open Heart Surgery: No Hx Open Reduction Internal Fixation: No Hx Orthopedic Surgery: No Hx Parathyroidectomy: No Hx Penile Implant: No Hx Pulmonary Surgery: No Hx Splenectomy: No Hx Thyroidectomy: No Hx Tonsillectomy: No Hx Tubal Ligation: No Hx Valve Replacement: No Hx Vascular Surgery: No Hx Vascular Access Device: No - ANESTHESIA Hx Anesthesia: Yes Hx Anesthesia Reactions: No Hx Malignant Hyperthermia: No Has any member of the family had a problem w/ anesthesia?: No Meds Allergies/Adverse Reactions: Allergies Allergy/AdvReac Type Severity Reaction Status Date / Time No Known Allergies Allergy Verified 04/24/17 11:26 - Medications Medications: Current Medications Acetaminophen (Tylenol 325mg Tab) 650 mg PO Q6 PRN PRN Reason: Pain, Mild (1-3) Furosemide (Lasix) 40 mg IVP DAILY [facility] Lactulose (Enulose) 30 gm PO HS [facility] Ondansetron HCl (Zofran Inj) 4 mg IVP Q6 PRN PRN Reason: Nausea/Vomiting Pantoprazole Sodium (Protonix Ec Tab) 40 mg PO DAILY [facility] Pneumococcal Polyvalent Vaccine (Pneumovax 23 Vaccine) 0.5 ml IM .ONCE ONE Stop: 04/27/17 10:01 Rifaximin (Xifaxan) 550 mg PO TID [facility] Physical Exam - Constitutional Appears: Well, Non-toxic - Head Exam Head Exam: ATRAUMATIC, NORMOCEPHALIC - Eye Exam Eye Exam: Normal appearance - ENT Exam ENT Exam: Mucous Membranes Moist, Normal Exam - Respiratory Exam Respiratory Exam: Clear to Auscultation Bilateral, NORMAL BREATHING PATTERN. absent: Rales, Rhonchi, Wheezes, Respiratory Distress - Cardiovascular Exam Cardiovascular Exam: REGULAR RHYTHM, +S1, +S2 - GI/Abdominal Exam GI & Abdominal Exam: Normal Bowel Sounds, Soft. absent: Distended, Guarding, Organomegaly, Rigid, Tenderness - Neurological Exam Neurological exam: Alert, Oriented x3 - Psychiatric Exam Psychiatric exam: Normal Affect, Normal Mood - Skin Skin Exam: Dry, Intact, Normal Color, Warm Results - Vital Signs Recent Vital Signs: Last Vital Signs Temp 99.3 F 04/25/17 00:47 Pulse 87 04/25/17 00:47 Resp 16 04/25/17 00:47 BP 99/64 L 04/25/17 00:47 Pulse Ox 97 04/25/17 00:47 - Labs Result Diagrams: 04/25/17 07:49 04/25/17 07:49 Labs: Laboratory Results - last 24 hr 04/24/17 04/25/17 04/25/17 21:27 07:15 07:49 WBC 4.2 L RBC 3.04 L Hgb 9.7 L Hct 28.2 L MCV 93.0 MCH 32.1 H MCHC 34.5 RDW 28.8 H Plt Count 92 L MPV 7.9 Neut % (Auto) 63.7 Lymph % (Auto) 17.2 L [place] % (Auto) 17.4 H Eos % (Auto) 1.0 Baso % (Auto) 0.7 Neut # 2.6 Lymph # 0.7 L [place] # 0.7 Eos # 0.0 Baso # 0.0 Sodium Potassium Chloride Carbon Dioxide Anion Gap BUN Creatinine Est GFR ( Amer) Est GFR (Non-Af Amer) POC Glucose (mg/dL) 110 84 Random Glucose Calcium Phosphorus Magnesium Total Bilirubin Direct Bilirubin AST ALT Alkaline Phosphatase Total Protein Albumin Globulin Albumin/Globulin Ratio Urine Color Urine Clarity Urine pH Ur Specific [place] Urine Protein Urine Glucose (UA) Urine Ketones Urine Blood Urine Nitrate Urine Bilirubin Urine Urobilinogen Ur Leukocyte Esterase Urine WBC (Auto) Urine RBC (Auto) Ur Squamous Epith Cells Alcohol, Quantitative IgG 04/25/17 04/25/17 04/25/17 07:49 07:49 07:49 WBC RBC Hgb Hct MCV MCH MCHC RDW Plt Count MPV Neut % (Auto) Lymph % (Auto) [place] % (Auto) Eos % (Auto) Baso % (Auto) Neut # Lymph # [place] # Eos # Baso # Sodium 134 Potassium 3.3 L Chloride 98 Carbon Dioxide 26 Anion Gap 13 BUN 6 L Creatinine 0.7 L Est GFR ( Amer) > 60 Est GFR (Non-Af Amer) > 60 POC Glucose (mg/dL) Random Glucose 82 Calcium 7.6 L Phosphorus 1.8 L Magnesium 1.2 L Total Bilirubin 11.3 H Direct Bilirubin 9.4 H AST 301 H ALT 70 Alkaline Phosphatase 217 H Total Protein 7.7 Albumin 2.4 L Globulin 5.3 H Albumin/Globulin Ratio 0.5 L Urine Color Urine Clarity Urine pH Ur Specific [place] Urine Protein Urine Glucose (UA) Urine Ketones Urine Blood Urine Nitrate Urine Bilirubin Urine Urobilinogen Ur Leukocyte Esterase Urine WBC (Auto) Urine RBC (Auto) Ur Squamous Epith Cells Alcohol, Quantitative < 10 IgG 2517.8 H 04/25/17 08:09 WBC RBC Hgb Hct MCV MCH MCHC RDW Plt Count MPV Neut % (Auto) Lymph % (Auto) [place] % (Auto) Eos % (Auto) Baso % (Auto) Neut # Lymph # [place] # Eos # Baso # Sodium Potassium Chloride Carbon Dioxide Anion Gap BUN Creatinine Est GFR ( Amer) Est GFR (Non-Af Amer) POC Glucose (mg/dL) Random Glucose Calcium Phosphorus Magnesium Total Bilirubin Direct Bilirubin AST ALT Alkaline Phosphatase Total Protein Albumin Globulin Albumin/Globulin Ratio Urine Color Aide Urine Clarity Clear Urine pH 6.0 Ur Specific [place] 1.059 H Urine Protein 1+ H Urine Glucose (UA) Normal Urine Ketones Trace H Urine Blood Negative Urine Nitrate Negative Urine Bilirubin 2+ H Urine Urobilinogen 4.0 Ur Leukocyte Esterase Negative Urine WBC (Auto) 4 Urine RBC (Auto) 2 Ur Squamous Epith Cells 2 Alcohol, Quantitative IgG Assessment & Plan - Assessment and Plan (Free Text) Assessment: Kimberly Loya is a 46M w/ hx of Cirrohsis 2/2 Etoh who presented to the ED for head suture removal and was found to have hyper bilirubinemia Acute Hepatitis, EtOH?, DF:82 ETOH cirrhosis, admission MELD 27 HTN Hyperlipidemia Morbid obesity hx of TIA Plan: -unreliable hx of etoh use -will get cxr to r/o PNA, though afebrile and UA neg, if cxr neg will start prednisolone 40mg daily -pt will eventually need a colonoscopy and endoscopy as an oupt -recommend low salt diet -could not appreciate sig ascities on abd exam, no indication for abd paracentesis at this time -recommend autoimmune w/u and hepatitis panel -explained the importance of Etoh abstinence with video interp, pt acknowledged understanding -will need follow-up with GI as an outpt -lasix 40mg daily -start aldactone 100mg daily -will also get another triple phase liver CT due to finding of 9cm hepatic lesion in the psterior lobe, liver CT 3 months ago did not show a lesion but it was not a good arterial phase D/W Dr. Doherty <Bessy DOWELL,[facility] - Last Filed: 04/25/17 18:42> Meds - Medications Medications: Current Medications Furosemide (Lasix) 40 mg IVP DAILY [facility] Last Admin: 04/25/17 10:36 Dose: 40 mg Lactulose (Enulose) 30 gm PO BID [facility] Last Admin: 04/25/17 17:34 Dose: 30 gm Ondansetron HCl (Zofran Inj) 4 mg IVP Q6 PRN PRN Reason: Nausea/Vomiting Pantoprazole Sodium (Protonix Ec Tab) 40 mg PO DAILY [facility] Last Admin: 04/25/17 10:39 Dose: 40 mg Pneumococcal Polyvalent Vaccine (Pneumovax 23 Vaccine) 0.5 ml IM .ONCE ONE Stop: 04/27/17 10:01 Potassium Chloride (K-Dur 20 Meq Er Tab) 20 meq PO DAILY [facility] Last Admin: 04/25/17 14:29 Dose: 20 meq Prednisolone (Prednisolone) 40 mg PO DAILY [facility] Rifaximin (Xifaxan) 550 mg PO TID [facility] Last Admin: 04/25/17 17:33 Dose: 550 mg Spironolactone (Aldactone) 100 mg PO DAILY [facility] Results - Vital Signs Recent Vital Signs: Last Vital Signs Temp 98.1 F 04/25/17 15:10 Pulse 85 04/25/17 15:10 Resp 20 04/25/17 15:10 BP 135/80 04/25/17 15:10 Pulse Ox 97 04/25/17 15:10 - Labs Result Diagrams: 04/25/17 07:49 04/25/17 07:49 Labs: Laboratory Results - last 24 hr 04/24/17 04/25/17 04/25/17 21:27 07:15 07:49 WBC 4.2 L RBC 3.04 L Hgb 9.7 L Hct 28.2 L MCV 93.0 MCH 32.1 H MCHC 34.5 RDW 28.8 H Plt Count 92 L MPV 7.9 Neut % (Auto) 63.7 Lymph % (Auto) 17.2 L [place] % (Auto) 17.4 H Eos % (Auto) 1.0 Baso % (Auto) 0.7 Neut # 2.6 Lymph # 0.7 L [place] # 0.7 Eos # 0.0 Baso # 0.0 Sodium Potassium Chloride Carbon Dioxide Anion Gap BUN Creatinine Est GFR ( Amer) Est GFR (Non-Af Amer) POC Glucose (mg/dL) 110 84 Random Glucose Hemoglobin A1c Calcium Phosphorus Magnesium Total Bilirubin Direct Bilirubin AST ALT Alkaline Phosphatase Total Protein Albumin Globulin Albumin/Globulin Ratio Alpha Fetoprotein Urine Color Urine Clarity Urine pH Ur Specific [place] Urine Protein Urine Glucose (UA) Urine Ketones Urine Blood Urine Nitrate Urine Bilirubin Urine Urobilinogen Ur Leukocyte Esterase Urine WBC (Auto) Urine RBC (Auto) Ur Squamous Epith Cells Alcohol, Quantitative IgG DINO 6 Profile Hepatitis A IgM Ab Hep Bs Antigen Hep B Core IgM Ab Hepatitis C Antibody 04/25/17 04/25/17 04/25/17 07:49 07:49 07:49 WBC RBC Hgb Hct MCV MCH MCHC RDW Plt Count MPV Neut % (Auto) Lymph % (Auto) [place] % (Auto) Eos % (Auto) Baso % (Auto) Neut # Lymph # [place] # Eos # Baso # Sodium 134 Potassium 3.3 L Chloride 98 Carbon Dioxide 26 Anion Gap 13 BUN 6 L Creatinine 0.7 L Est GFR ( Amer) > 60 Est GFR (Non-Af Amer) > 60 POC Glucose (mg/dL) Random Glucose 82 Hemoglobin A1c 4.2 Calcium 7.6 L Phosphorus 1.8 L Magnesium 1.2 L Total Bilirubin 11.3 H Direct Bilirubin 9.4 H AST 301 H ALT 70 Alkaline Phosphatase 217 H Total Protein 7.7 Albumin 2.4 L Globulin 5.3 H Albumin/Globulin Ratio 0.5 L Alpha Fetoprotein Urine Color Urine Clarity Urine pH Ur Specific [place] Urine Protein Urine Glucose (UA) Urine Ketones Urine Blood Urine Nitrate Urine Bilirubin Urine Urobilinogen Ur Leukocyte Esterase Urine WBC (Auto) Urine RBC (Auto) Ur Squamous Epith Cells Alcohol, Quantitative < 10 IgG DINO 6 Profile Hepatitis A IgM Ab Hep Bs Antigen Hep B Core IgM Ab Hepatitis C Antibody 04/25/17 04/25/17 04/25/17 07:49 07:49 07:49 WBC RBC Hgb Hct MCV MCH MCHC RDW Plt Count MPV Neut % (Auto) Lymph % (Auto) [place] % (Auto) Eos % (Auto) Baso % (Auto) Neut # Lymph # [place] # Eos # Baso # Sodium Potassium Chloride Carbon Dioxide Anion Gap BUN Creatinine Est GFR ( Amer) Est GFR (Non-Af Amer) POC Glucose (mg/dL) Random Glucose Hemoglobin A1c Calcium Phosphorus Magnesium Total Bilirubin Direct Bilirubin AST ALT Alkaline Phosphatase Total Protein Albumin Globulin Albumin/Globulin Ratio Alpha Fetoprotein 3.9 Urine Color Urine Clarity Urine pH Ur Specific [place] Urine Protein Urine Glucose (UA) Urine Ketones Urine Blood Urine Nitrate Urine Bilirubin Urine Urobilinogen Ur Leukocyte Esterase Urine WBC (Auto) Urine RBC (Auto) Ur Squamous Epith Cells Alcohol, Quantitative IgG DINO 6 Profile Negative Hepatitis A IgM Ab Negative Hep Bs Antigen Negative Hep B Core IgM Ab Negative Hepatitis C Antibody Negative 04/25/17 04/25/17 04/25/17 07:49 08:09 11:14 WBC RBC Hgb Hct MCV MCH MCHC RDW Plt Count MPV Neut % (Auto) Lymph % (Auto) [place] % (Auto) Eos % (Auto) Baso % (Auto) Neut # Lymph # [place] # Eos # Baso # Sodium Potassium Chloride Carbon Dioxide Anion Gap BUN Creatinine Est GFR ( Amer) Est GFR (Non-Af Amer) POC Glucose (mg/dL) 117 H Random Glucose Hemoglobin A1c Calcium Phosphorus Magnesium Total Bilirubin Direct Bilirubin AST ALT Alkaline Phosphatase Total Protein Albumin Globulin Albumin/Globulin Ratio Alpha Fetoprotein Urine Color Aide Urine Clarity Clear Urine pH 6.0 Ur Specific [place] 1.059 H Urine Protein 1+ H Urine Glucose (UA) Normal Urine Ketones Trace H Urine Blood Negative Urine Nitrate Negative Urine Bilirubin 2+ H Urine Urobilinogen 4.0 Ur Leukocyte Esterase Negative Urine WBC (Auto) 4 Urine RBC (Auto) 2 Ur Squamous Epith Cells 2 Alcohol, Quantitative IgG 2517.8 H DINO 6 Profile Hepatitis A IgM Ab Hep Bs Antigen Hep B Core IgM Ab Hepatitis C Antibody 04/25/17 16:33 WBC RBC Hgb Hct MCV MCH MCHC RDW Plt Count MPV Neut % (Auto) Lymph % (Auto) [place] % (Auto) Eos % (Auto) Baso % (Auto) Neut # Lymph # [place] # Eos # Baso # Sodium Potassium Chloride Carbon Dioxide Anion Gap BUN Creatinine Est GFR ( Amer) Est GFR (Non-Af Amer) POC Glucose (mg/dL) 136 H Random Glucose Hemoglobin A1c Calcium Phosphorus Magnesium Total Bilirubin Direct Bilirubin AST ALT Alkaline Phosphatase Total Protein Albumin Globulin Albumin/Globulin Ratio Alpha Fetoprotein Urine Color Urine Clarity Urine pH Ur Specific [place] Urine Protein Urine Glucose (UA) Urine Ketones Urine Blood Urine Nitrate Urine Bilirubin Urine Urobilinogen Ur Leukocyte Esterase Urine WBC (Auto) Urine RBC (Auto) Ur Squamous Epith Cells Alcohol, Quantitative IgG DINO 6 Profile Hepatitis A IgM Ab Hep Bs Antigen Hep B Core IgM Ab Hepatitis C Antibody Attending/Attestation - Attestation I have personally seen and examined this patient.: Yes I have fully participated in the care of the patient.: Yes I have reviewed all pertinent clinical information: Yes Notes (Text): 04/25/17 18:35 Patient seen with GI fellow on rounds this am. This is a 46 yr old obeses yi M (interview conducted with sand caster) with prolonged alcohol abuse, claims last drink was two months admitted with acute on chronic liver disease with alcoholic hepatitis and new onset jaundice. MELD score of 27 and DF 82. No s/s of infection or sepsis. Will start methyprednisolone for 4 weeks. Continue lasix and aldactone at 40/100 mg per day ratio with low salt diet. Continue lactulose for HE. Needs EGD for variceal screening , can be done as outpatient. Daily strict urine output. Daily MELD labs. Concerning CT liver with right lobe lesion. Low AFP. Will do triple phase CT scan for confirmation. If negative can be discharged as TB is downtrending. Strict alcohol cessation councelled.
--- NOTE | 2017-04-25 09:02 | CT ---
PROCEDURE: CT HEAD WITHOUT CONTRAST. HISTORY: s/p head laceration w/ sutures COMPARISON: None available. TECHNIQUE: Axial computed tomography images were obtained through the head/brain without intravenous contrast. Radiation dose: Total exam DLP = 981.84 mGy-cm. This CT exam was performed using one or more of the following dose reduction techniques: Automated exposure control, adjustment of the mA and/or kV according to patient size, and/or use of iterative reconstruction technique. FINDINGS: HEMORRHAGE: No no acute parenchymal, subarachnoid nor extra-axial hemorrhage. BRAIN: Suspect mild chronic periventricular white matter ischemic changes. . There is a small elliptical shaped focus low attenuation left posterior parietal subcortical white matter that could represent dilated perivascular space versus tiny chronic lacunar type infarct. Mild generalized volume loss. No obvious parenchymal nor extra-axial mass or collection seen on this noncontrast study. . Minor vascular calcifications both carotid siphons VENTRICLES: No obstructive hydrocephalus. CALVARIUM: There are no acute calvarial fractures. . Left and mid posterior superior parietal scalp swelling. PARANASAL SINUSES: Unremarkable as visualized. No significant inflammatory changes. MASTOID AIR CELLS: Unremarkable as visualized. No inflammatory changes. OTHER FINDINGS: None. IMPRESSION: No acute intracranial hemorrhage. Suspect minor chronic periventricular white matter ischemic changes. Questionable dilated perivascular space versus tiny chronic lacunar-type infarct left posterior parietal subcortical white matter. Mild generalized volume loss. Left and midposterior superior parietal scalp swelling.
[2017-04-25] MEDS: Pantoprazole 40 mg EC Tab PO SCH (10:39)
[2017-04-25] MEDS: Magnesium Sulfate 1 gm in D5W 1 GM/100 ML BAG IVPB SCH ×2 (13:24→14:28)
--- NOTE | 2017-04-25 13:57 | RAD ---
HISTORY: rule out PNA COMPARISON: No prior. FINDINGS: LUNGS: Poor inspiration with low lung volumes, crowded bronchovascular markings and suspected minor bibasilar atelectasis. PLEURA: No significant pleural effusion identified, no pneumothorax apparent. CARDIOVASCULAR: Cardiomegaly. Aorta is ectatic and uncoiled. OSSEOUS STRUCTURES: No significant abnormalities. VISUALIZED UPPER ABDOMEN: Normal. OTHER FINDINGS: None. IMPRESSION: Poor inspiration suspected minor mild bibasilar atelectasis
[2017-04-25] MEDS: Potassium Chloride 20 mEq ER Tab PO SCH (14:29)
[2017-04-25] MEDS ORDERED: Magnesium Sulfate 1 gm in D5W 1 GM/100 ML BAG IVPB SCH (15:00)
[2017-04-25] MEDS ORDERED: Iodixanol 320 MG/ML 100 ML BOTTLE IV ONE (16:23)
--- NOTE | 2017-04-25 18:51 | CP.PCM.HP ---
Past Patient History - Infectious Disease Hx of Infectious Diseases: None - Past Medical History & Family History Past Medical History?: Yes - Past Social History Smoking Status: Former Smoker - CARDIAC Hx Cardiac Disorders: No - PULMONARY Hx Respiratory Disorders: No - NEUROLOGICAL Hx Neurological Disorder: No - HEENT Hx HEENT Problems: No - RENAL Hx Chronic Kidney Disease: No - ENDOCRINE/METABOLIC Hx Endocrine Disorders: No - HEMATOLOGICAL/ONCOLOGICAL Hx Blood Disorders: Yes Hx AIDS: No Hx Anemia: No Hx Blood Transfusions: No Hx Blood Transfusion Reaction: No Hx Bruising: No Hx Cancer: No Hx Chemotherapy: No Hx Cirrhosis: Yes Hx Gum Bleeding: No Hx Hemophilia: No Hx Hepatitis A: No Hx Hepatitis B: No Hx Hepatitis C: No Hx Human Immunodeficiency Virus (HIV): No Hx Leukemia: No Hx Metastesis: No Hx Shingles: No Hx Sickle Cell Disease: No Hx Unexplained Bleeding: No Hx von Willebrand's Disease: No - INTEGUMENTARY Hx Dermatological Problems: No - MUSCULOSKELETAL/RHEUMATOLOGICAL Hx Falls: Yes - GASTROINTESTINAL Hx Gastrointestinal Disorders: No - GENITOURINARY/GYNECOLOGICAL Hx Genitourinary Disorders: No - PSYCHIATRIC Hx Substance Use: No - SURGICAL HISTORY Hx Surgeries: Yes Hx Abdominal Aortic Aneurysm Repair: No Hx Amputation: No Hx Angiogram: No Hx Angioplasty: No Hx Appendectomy: Yes Hx Arteriovenous Shunt: No Hx Arthroscopy: No Hx Bile Duct Stent: No Hx Breast Biopsy: No Hx Cataract Extraction: No Hx Cardiac Catheterization: No Hx Carotid Endarterectomy: No Hx Section: No Hx Cholecystectomy: No Hx Coronary Artery Bypass Graft: No Hx Coronary Stent: No Hx Dilation and Curettage: No Hx Eye Surgery: No Hx Femoral-Popliteal Bypass Graft: No Hx Gastric Bypass Surgery: No Hx Herniorrhaphy: No Hx Hysterectomy: No Hx Joint Replacement: No Hx Kidney Transplant: No Hx Liver Transplant: No Hx Mastectomy: No Hx Musculoskeletal Surgery: No Hx Open Heart Surgery: No Hx Open Reduction Internal Fixation: No Hx Orthopedic Surgery: No Hx Parathyroidectomy: No Hx Penile Implant: No Hx Pulmonary Surgery: No Hx Splenectomy: No Hx Thyroidectomy: No Hx Tonsillectomy: No Hx Tubal Ligation: No Hx Valve Replacement: No Hx Vascular Surgery: No Hx Vascular Access Device: No - ANESTHESIA Hx Anesthesia: Yes Hx Anesthesia Reactions: No Hx Malignant Hyperthermia: No Has any member of the family had a problem w/ anesthesia?: No Meds Allergies/Adverse Reactions: Allergies Allergy/AdvReac Type Severity Reaction Status Date / Time No Known Allergies Allergy Verified 04/24/17 11:26 Physical Exam - Constitutional Appears: Well - Head Exam Head Exam: ATRAUMATIC, NORMAL INSPECTION, NORMOCEPHALIC - Eye Exam Eye Exam: EOMI, Normal appearance, PERRL Pupil Exam: NORMAL ACCOMODATION, PERRL - ENT Exam ENT Exam: Mucous Membranes Moist, Normal Exam - Neck Exam Neck exam: Positive for: Normal Inspection - Respiratory Exam Respiratory Exam: Decreased Breath Sounds - Cardiovascular Exam Cardiovascular Exam: REGULAR RHYTHM, +S1, +S2 - GI/Abdominal Exam GI & Abdominal Exam: Diminished Bowel Sounds, Soft - Rectal Exam Rectal Exam: Deferred Results - Vital Signs Recent Vital Signs: Last Vital Signs Temp 98.1 F 04/25/17 15:10 Pulse 85 04/25/17 15:10 Resp 20 04/25/17 15:10 BP 135/80 04/25/17 15:10 Pulse Ox 97 04/25/17 15:10 - Labs Result Diagrams: 04/25/17 07:49 04/25/17 07:49 Labs: Laboratory Results - last 24 hr 04/24/17 04/25/17 04/25/17 21:27 07:15 07:49 WBC 4.2 L RBC 3.04 L Hgb 9.7 L Hct 28.2 L MCV 93.0 MCH 32.1 H MCHC 34.5 RDW 28.8 H Plt Count 92 L MPV 7.9 Neut % (Auto) 63.7 Lymph % (Auto) 17.2 L [place] % (Auto) 17.4 H Eos % (Auto) 1.0 Baso % (Auto) 0.7 Neut # 2.6 Lymph # 0.7 L [place] # 0.7 Eos # 0.0 Baso # 0.0 Sodium Potassium Chloride Carbon Dioxide Anion Gap BUN Creatinine Est GFR ( Amer) Est GFR (Non-Af Amer) POC Glucose (mg/dL) 110 84 Random Glucose Hemoglobin A1c Calcium Phosphorus Magnesium Total Bilirubin Direct Bilirubin AST ALT Alkaline Phosphatase Total Protein Albumin Globulin Albumin/Globulin Ratio Alpha Fetoprotein Urine Color Urine Clarity Urine pH Ur Specific Brutus Urine Protein Urine Glucose (UA) Urine Ketones Urine Blood Urine Nitrate Urine Bilirubin Urine Urobilinogen Ur Leukocyte Esterase Urine WBC (Auto) Urine RBC (Auto) Ur Squamous Epith Cells Alcohol, Quantitative IgG DINO 6 Profile Hepatitis A IgM Ab Hep Bs Antigen Hep B Core IgM Ab Hepatitis C Antibody 04/25/17 04/25/17 04/25/17 07:49 07:49 07:49 WBC RBC Hgb Hct MCV MCH MCHC RDW Plt Count MPV Neut % (Auto) Lymph % (Auto) [place] % (Auto) Eos % (Auto) Baso % (Auto) Neut # Lymph # [place] # Eos # Baso # Sodium 134 Potassium 3.3 L Chloride 98 Carbon Dioxide 26 Anion Gap 13 BUN 6 L Creatinine 0.7 L Est GFR ( Amer) > 60 Est GFR (Non-Af Amer) > 60 POC Glucose (mg/dL) Random Glucose 82 Hemoglobin A1c 4.2 Calcium 7.6 L Phosphorus 1.8 L Magnesium 1.2 L Total Bilirubin 11.3 H Direct Bilirubin 9.4 H AST 301 H ALT 70 Alkaline Phosphatase 217 H Total Protein 7.7 Albumin 2.4 L Globulin 5.3 H Albumin/Globulin Ratio 0.5 L Alpha Fetoprotein Urine Color Urine Clarity Urine pH Ur Specific Brutus Urine Protein Urine Glucose (UA) Urine Ketones Urine Blood Urine Nitrate Urine Bilirubin Urine Urobilinogen Ur Leukocyte Esterase Urine WBC (Auto) Urine RBC (Auto) Ur Squamous Epith Cells Alcohol, Quantitative < 10 IgG DINO 6 Profile Hepatitis A IgM Ab Hep Bs Antigen Hep B Core IgM Ab Hepatitis C Antibody 04/25/17 04/25/17 04/25/17 07:49 07:49 07:49 WBC RBC Hgb Hct MCV MCH MCHC RDW Plt Count MPV Neut % (Auto) Lymph % (Auto) [place] % (Auto) Eos % (Auto) Baso % (Auto) Neut # Lymph # [place] # Eos # Baso # Sodium Potassium Chloride Carbon Dioxide Anion Gap BUN Creatinine Est GFR ( Amer) Est GFR (Non-Af Amer) POC Glucose (mg/dL) Random Glucose Hemoglobin A1c Calcium Phosphorus Magnesium Total Bilirubin Direct Bilirubin AST ALT Alkaline Phosphatase Total Protein Albumin Globulin Albumin/Globulin Ratio Alpha Fetoprotein 3.9 Urine Color Urine Clarity Urine pH Ur Specific Brutus Urine Protein Urine Glucose (UA) Urine Ketones Urine Blood Urine Nitrate Urine Bilirubin Urine Urobilinogen Ur Leukocyte Esterase Urine WBC (Auto) Urine RBC (Auto) Ur Squamous Epith Cells Alcohol, Quantitative IgG DINO 6 Profile Negative Hepatitis A IgM Ab Negative Hep Bs Antigen Negative Hep B Core IgM Ab Negative Hepatitis C Antibody Negative 04/25/17 04/25/17 04/25/17 07:49 08:09 11:14 WBC RBC Hgb Hct MCV MCH MCHC RDW Plt Count MPV Neut % (Auto) Lymph % (Auto) [place] % (Auto) Eos % (Auto) Baso % (Auto) Neut # Lymph # [place] # Eos # Baso # Sodium Potassium Chloride Carbon Dioxide Anion Gap BUN Creatinine Est GFR ( Amer) Est GFR (Non-Af Amer) POC Glucose (mg/dL) 117 H Random Glucose Hemoglobin A1c Calcium Phosphorus Magnesium Total Bilirubin Direct Bilirubin AST ALT Alkaline Phosphatase Total Protein Albumin Globulin Albumin/Globulin Ratio Alpha Fetoprotein Urine Color Aide Urine Clarity Clear Urine pH 6.0 Ur Specific Brutus 1.059 H Urine Protein 1+ H Urine Glucose (UA) Normal Urine Ketones Trace H Urine Blood Negative Urine Nitrate Negative Urine Bilirubin 2+ H Urine Urobilinogen 4.0 Ur Leukocyte Esterase Negative Urine WBC (Auto) 4 Urine RBC (Auto) 2 Ur Squamous Epith Cells 2 Alcohol, Quantitative IgG 2517.8 H DINO 6 Profile Hepatitis A IgM Ab Hep Bs Antigen Hep B Core IgM Ab Hepatitis C Antibody 04/25/17 16:33 WBC RBC Hgb Hct MCV MCH MCHC RDW Plt Count MPV Neut % (Auto) Lymph % (Auto) [place] % (Auto) Eos % (Auto) Baso % (Auto) Neut # Lymph # [place] # Eos # Baso # Sodium Potassium Chloride Carbon Dioxide Anion Gap BUN Creatinine Est GFR ( Amer) Est GFR (Non-Af Amer) POC Glucose (mg/dL) 136 H Random Glucose Hemoglobin A1c Calcium Phosphorus Magnesium Total Bilirubin Direct Bilirubin AST ALT Alkaline Phosphatase Total Protein Albumin Globulin Albumin/Globulin Ratio Alpha Fetoprotein Urine Color Urine Clarity Urine pH Ur Specific Brutus Urine Protein Urine Glucose (UA) Urine Ketones Urine Blood Urine Nitrate Urine Bilirubin Urine Urobilinogen Ur Leukocyte Esterase Urine WBC (Auto) Urine RBC (Auto) Ur Squamous Epith Cells Alcohol, Quantitative IgG DINO 6 Profile Hepatitis A IgM Ab Hep Bs Antigen Hep B Core IgM Ab Hepatitis C Antibody
[2017-04-25] MEDS: PrednisoLONE 6 MG/2 ML SYR PO SCH ×2 (19:25→22:03)
[2017-04-26 06:23] LABS: CHLORIDE 98 mmol/L (98-107)
[2017-04-26 06:24] LABS: SODIUM 130 mmol/L (132-148)
[2017-04-26 06:26] LABS: GFR AFRICAN-AMERICAN > 60
[2017-04-26 06:27] LABS: BLOOD UREA NITROGEN 6 mg/dL (9-20); CALCIUM 6.6 mg/dl (8.6-10.4); CARBON DIOXIDE 21 mmol/L (22-30); GLUCOSE,RANDOM 132 mg/dL (75-110); MAGNESIUM 1.5 mg/dL (1.6-2.3)
[2017-04-26 06:28] LABS: POTASSIUM 4.7 mmol/L (3.6-5.2)
--- NOTE | 2017-04-26 07:32 | CP.PCM.PN ---
<Kaitlynn Flores - Last Filed: 04/26/17 07:34> Subjective - Date & Time of Evaluation Date of Evaluation: 04/26/17 Time of Evaluation: 07:00 - Subjective Subjective: PGY4 GI Followup Pt is still confused according to RN 2-3 BM No other complaints Denies any abd pain tolerating diet ROS: 10 point ROS neg other than above Objective - Vital Signs/Intake and Output Vital Signs (last 24 hours): Temp Pulse Resp BP Pulse Ox 98.8 F 88 18 112/77 98 04/25/17 23:00 04/25/17 23:00 04/25/17 23:00 04/25/17 23:00 04/25/17 23:00 Intake and Output: 04/26/17 04/26/17 06:59 18:59 Intake Total 600 Output Total 600 Balance 0 - Medications Medications: Current Medications Furosemide (Lasix) 40 mg IVP DAILY [facility] Last Admin: 04/25/17 10:36 Dose: 40 mg Lactulose (Enulose) 30 gm PO BID [facility] Last Admin: 04/25/17 17:34 Dose: 30 gm Ondansetron HCl (Zofran Inj) 4 mg IVP Q6 PRN PRN Reason: Nausea/Vomiting Pantoprazole Sodium (Protonix Ec Tab) 40 mg PO DAILY [facility] Last Admin: 04/25/17 10:39 Dose: 40 mg Pneumococcal Polyvalent Vaccine (Pneumovax 23 Vaccine) 0.5 ml IM .ONCE ONE Stop: 04/27/17 10:01 Potassium Chloride (K-Dur 20 Meq Er Tab) 20 meq PO DAILY [facility] Last Admin: 04/25/17 14:29 Dose: 20 meq Prednisolone (Prednisolone) 40 mg PO DAILY [facility] Last Admin: 04/25/17 22:03 Dose: 40 mg Rifaximin (Xifaxan) 550 mg PO TID [facility] Last Admin: 04/25/17 17:33 Dose: 550 mg Spironolactone (Aldactone) 100 mg PO DAILY [facility] - Labs Labs: 04/25/17 07:49 04/26/17 06:08 PT 27.4 SECONDS (9.7-12.2) H 04/24/17 13:49 INR 2.4 04/24/17 13:49 APTT 40 SECONDS (21-34) H 04/24/17 13:49 - Constitutional Appears: Well, No Acute Distress - Head Exam Head Exam: ATRAUMATIC, NORMOCEPHALIC - Eye Exam Eye Exam: Scleral icterus - ENT Exam ENT Exam: Mucous Membranes Moist, Normal Exam - Neck Exam Neck Exam: Normal Inspection - Respiratory Exam Respiratory Exam: Clear to Ausculation Bilateral, NORMAL BREATHING PATTERN. absent: Rales, Rhonchi, Wheezes - Cardiovascular Exam Cardiovascular Exam: REGULAR RHYTHM, +S1, +S2 - GI/Abdominal Exam GI & Abdominal Exam: Distended, Normal Bowel Sounds, Organomegaly. absent: Guarding, Rigid, Tenderness - Extremities Exam Extremities Exam: absent: Joint Swelling, Pedal Edema, Tenderness - Neurological Exam Neurological Exam: Altered, Awake - Psychiatric Exam Psychiatric exam: Normal Affect, Normal Mood - Skin Skin Exam: Dry, Intact Additional comments: cedricice Assessment and Plan - Assessment and Plan (Free Text) Assessment: Kimberly Loya is a 46M w/ hx of Cirrohsis 2/2 Etoh who presented to the ED for head suture removal and was found to have hyper bilirubinemia Acute Hepatitis, EtOH?, DF:82 ETOH cirrhosis Hepatic enceph HTN Hyperlipidemia Morbid obesity hx of TIA Plan: Plan: -Continue prednisolone 40mg daily -pt will eventually need a colonoscopy and endoscopy as an oupt -continue low salt diet -could not appreciate sig ascities on abd exam, no indication for abd paracentesis at this time -waiting on autoimmune w/u and hepatitis panel -explained the importance of Etoh abstinence with video interp, pt acknowledged understanding -will need follow-up with GI as an outpt -continue lasix 40mg daily and aldactone 100mg daily -CT liver pending to eval 9cm mass in posterior lobe of liver on CT abd Will D/w Dr. Kerr <Ashish Kerr - Last Filed: 04/26/17 09:25> Objective - Vital Signs/Intake and Output Vital Signs (last 24 hours): Temp Pulse Resp BP Pulse Ox 98.5 F 93 H 20 115/73 96 04/26/17 08:46 04/26/17 08:46 04/26/17 08:46 04/26/17 08:46 04/26/17 08:46 Intake and Output: 04/26/17 04/26/17 06:59 18:59 Intake Total 600 Output Total 600 Balance 0 - Medications Medications: Current Medications Furosemide (Lasix) 40 mg IVP DAILY [facility] Last Admin: 04/25/17 10:36 Dose: 40 mg Lactulose (Enulose) 30 gm PO BID [facility] Last Admin: 04/25/17 17:34 Dose: 30 gm Ondansetron HCl (Zofran Inj) 4 mg IVP Q6 PRN PRN Reason: Nausea/Vomiting Pantoprazole Sodium (Protonix Ec Tab) 40 mg PO DAILY [facility] Last Admin: 04/25/17 10:39 Dose: 40 mg Pneumococcal Polyvalent Vaccine (Pneumovax 23 Vaccine) 0.5 ml IM .ONCE ONE Stop: 04/27/17 10:01 Potassium Chloride (K-Dur 20 Meq Er Tab) 20 meq PO DAILY [facility] Last Admin: 04/25/17 14:29 Dose: 20 meq Prednisolone (Prednisolone) 40 mg PO DAILY [facility] Last Admin: 04/25/17 22:03 Dose: 40 mg Rifaximin (Xifaxan) 550 mg PO TID [facility] Last Admin: 04/25/17 17:33 Dose: 550 mg Spironolactone (Aldactone) 100 mg PO DAILY [facility] - Labs Labs: 04/25/17 07:49 04/26/17 06:08 PT 27.4 SECONDS (9.7-12.2) H 04/24/17 13:49 INR 2.4 04/24/17 13:49 APTT 40 SECONDS (21-34) H 04/24/17 13:49 Attending/Attestation - Attestation I have personally seen and examined this patient.: Yes I have fully participated in the care of the patient.: Yes I have reviewed all pertinent clinical information, including history, physical exam and plan: Yes Notes (Text): 04/26/17 09:20 I have seen and examined patient with GI fellow. No acute events overnight. He is oriented to person but not to place or time. According to nursing staff he had two bowel movements yesterday, dark in color. He denies abdominal pain, nausea, vomiting, fever/chills. Tolerating PO diet without difficulty. ETOH decompensated cirrhosis Altered mental status, hepatic encephalopathy HTN Obesity TIA - Low sodium diet as tolerated - Continue with diuretic therapy, monitor electrolytes - Continue with lactulose, titrate so patient has at least 3 bowel movements daily, may continue with xifaxan - Continue with prednisolone therapy for acute ETOH hepatitis with DF > 32 for period of 4 weeks followed by slow taper regimen - Follow up hepatitis and autoimmune panels - Obtain repeat CT triple phase liver given indeterminate 9cm liver lesion seen on recent CT, though AFP is negative
[2017-04-26] MEDS ORDERED: Iodixanol 320 MG/ML 100 ML BOTTLE IV ONE (09:16)
[2017-04-26 09:40] LABS: CHLORIDE 92 mmol/L (98-107)
[2017-04-26 09:41] LABS: POTASSIUM 3.3 mmol/L (3.6-5.2); SODIUM 132 mmol/L (132-148)
[2017-04-26 09:43] LABS: ALB/GLOB RATIO 0.5 (1.0-2.1); ALKALINE PHOSPHATASE 227 U/L (38-126); AST/SGOT 297 U/L (17-59); BILIRUBIN,TOTAL 12.5 mg/dL (0.2-1.3); CARBON DIOXIDE 27 mmol/L (22-30); GFR AFRICAN-AMERICAN > 60; TOTAL PROTEIN 8.4 g/dL (6.3-8.3)
[2017-04-26 09:44] LABS: ALT/SGPT 73 U/L (21-72); BLOOD UREA NITROGEN 7 mg/dL (9-20); CALCIUM 7.5 mg/dl (8.6-10.4); GLUCOSE,RANDOM 133 mg/dL (75-110)
[2017-04-26] MEDS: Pantoprazole 40 mg EC Tab PO SCH (09:44)
[2017-04-26] MEDS ORDERED: Potassium Chloride 20 mEq ER Tab PO SCH (10:00)
--- NOTE | 2017-04-26 11:34 | CT ---
Liver protocol triple phase CT Indication: 9 cm liver mass on abdominal ultrasound, history of cirrhosis Technique: Contiguous axial images of the abdomen without & with IV contrast utilizing liver protocol. Coronal and Sagittal reformats generated and reviewed. This CT exam was performed using 1 or more of the falling dose reduction techniques: Automated exposure control, adjustment of the MAA and/or kV according to patient size, and/or use of iterative reconstruction technique. Contrast: 100 mL Visipaque IV. Oral contrast was not administered. Radiation dose: Total exam DLP = 2242.13 MGy-cm. Comparison: CT abdomen and pelvis with contrast performed 04/24/17, CT liver protocol performed 02/08/17 Findings: Partially imaged cardiomegaly. No visible pleural effusion or pneumothorax. Nodular hepatic contour. Heterogeneous hepatic echotexture. Severe hypoattenuation of the liver consistent with hepatic steatosis. Suboptimal arterial phase, however no focal hepatic mass evident. Splenomegaly. The kidneys enhance symmetrically without evidence of hydronephrosis or obstructing calculus. 11 mm right lower pole renal hypodensity, likely cyst. High-density material within the gallbladder possibly related to vicarious excretion of contrast. The pancreas, adrenal glands, and gallbladder appear otherwise unremarkable. Paraesophageal and upper abdominal/splenic varices. Sub cm mesenteric and retroperitoneal lymph nodes, nonspecific. Small to moderate hiatal hernia. The stomach is nondistended. Lack of oral contrast limits evaluation for bowel pathology. The included upper abdominal bowel loops appear within normal limits of caliber without evidence of intestinal obstruction. There is no definite free air. Degenerative changes of the spine. Scoliosis. Impression: Nodular hepatic contour consistent with cirrhosis. Heterogeneous hepatic echotexture with extensive hepatic steatosis. Suboptimal arterial phase, however no enhancing focal hepatic mass evident. If indicated, MRI liver protocol may be considered for follow-up. Splenomegaly. Right lower pole renal cyst. Paraesophageal and upper abdominal/splenic varices. Sub cm mesenteric and retroperitoneal lymph nodes, nonspecific. Additional findings as above.
[2017-04-26 12:33] LABS: INR 2.2
[2017-04-26] MEDS: PrednisoLONE 6 MG/2 ML SYR PO SCH (13:35)
[2017-04-26] MEDS: Potassium Chloride 20 mEq ER Tab PO SCH ×2 (13:35→16:30)
[2017-04-26] MEDS: Potassium Chloride 20 mEq ER Tab PO ONE ×2 (14:07→15:00)
--- NOTE | 2017-04-26 15:25 | PCM.PSYCH ---
Initial Psychiatric Evaluation - Initial Psychiatric Evaluation Chief Complaint (in patient's own words): The patient was consulted for confusion and agitation due to liver cirrhosis. History of Present Illness and Precipitating Events: This is a 46 y/o male who was admitted to the hospital for liver cirrhosis. He was consulted for confusion and agitation due to high ammonium from the liver cirrhosis. Patient is and lives alone in [place]. He currently does not work. He is a very poor historian. Translation is made by a clinical staff. Patient minimizes his alcohol use and claims to be drinking 4-5 beers daily, and also he reports minimal alcohol use for the past couple days. He did not report any acute withdrawal symptoms from alcohol: His VS are normal and is not sweaty, anxious or overtly tremulous. He denies getting any help for alcohol in the past. He denies drug use He was confused and disoriented to place and most of the time, knew the year only. He was able to repeat 3 words but forgot them all within 5 minutes. He was easily distracted. He got agitated today and later on and as he has no insight into his condition he demanded to leave. Past Medical Hx: surgery once (did not indicate for what condition) Past Psych Hx: Patient reports "feeling depressed" and claims to have a psychiatrist. Pt. reports having auditory hallucinations. He claims to be hearing "mysterious voices." Pt. also reports of having bad dreams. He denies suicidal ideation and feels safe. Family Hx: denies Current Medications: Active Medications Generic Name Dose Route Start Last Admin Trade Name Freq PRN Reason Stop Dose Admin Furosemide 40 mg 04/25/17 10:00 04/26/17 09:45 Lasix IVP 40 mg DAILY [facility] Administration Gabapentin 400 mg 04/26/17 14:00 04/26/17 13:54 Neurontin PO 400 mg TID [facility] Administration Haloperidol 5 mg 04/26/17 13:34 Haldol PO Q1H PRN severe agitation max4x/24h Lactulose 30 gm 04/25/17 18:00 04/26/17 09:44 Enulose PO 30 gm BID [facility] Administration Lorazepam 2 mg 04/26/17 13:34 04/26/17 13:53 Ativan IVP 2 mg Q4H PRN Administration agitation, max 5x/24h Ondansetron HCl 4 mg 04/24/17 22:34 Zofran Inj IVP Q6 PRN Nausea/Vomiting Pantoprazole Sodium 40 mg 04/25/17 10:00 04/26/17 09:44 Protonix Ec Tab PO 40 mg DAILY [facility] Administration Pneumococcal Polyvalent Vaccine 0.5 ml 04/27/17 10:00 Pneumovax 23 Vaccine IM 04/27/17 10:01 .ONCE ONE Potassium Chloride 20 meq 04/25/17 14:00 04/26/17 13:35 K-Dur 20 Meq Er Tab PO Not Given DAILY [facility] Prednisolone 40 mg 04/25/17 17:30 04/26/17 13:35 Prednisolone PO Not Given DAILY [facility] Rifaximin 550 mg 04/25/17 10:00 04/26/17 13:36 Xifaxan PO Not Given TID [facility] Spironolactone 100 mg 04/26/17 10:00 04/26/17 09:44 Aldactone PO 100 mg DAILY [facility] Administration Past Psychiatric History - Past Psychiatric History Previous Treatment History: Intensive Outpatient Pertinent Medical Hx (Current Medical&Sleep Prob, Allergies): Allergies Allergy/AdvReac Type Severity Reaction Status Date / Time No Known Allergies Allergy Verified 04/24/17 11:26 Unobtainable 04/24/17 Review of Systems - Neurological Neurological: Confusion - Psychiatric Psychiatric: Abnormal Sleep Pattern, Anxiety, Confusion, Hallucinations, Irritability Mental Status Examination - Personal Presentation Personal Presentation: Looks older than stated age - Affect Affect: Constricted - Motor Activity Motor Activity: Psychomotor Agitation - Reliability in Providing Information Reliability in Providing Information: Poor, due to cognitve impairment - Speech Speech: Disorganized, Irrelevant, Tangential - Mood Mood: Other (angry at times) - Formal Thought Process Formal Thought Process: Hallucinations, Paranoia, Loosening of associations - Hallucinations/Delusions Hallucinations: Auditory - Cognitive Functions Orientation: Person Sensorium: Alert Attention/Concentration: Easily distracted Abstract Thinking: [place] Estimate of Intelligence: Below average Judgement: Imparied, as evidence by: Poor judgement Memory: Recent impaired, as evidence by: Inability to recall events of the day, Recent imparied as evidence by:Inability to complete 3/3 object recall, Remote impaired as evidenced by: Inability to recall historical events - Risk Risk: Withdrawal, Diminished functioning - Strength & Assets Inventory Strength & Assets Inventory: Life experience, Cooperative - Limitations Limitations: Living alone DSM 5 DX - DSM 5 DSM 5 Diagnosis: Delirium, due to hepatic failure and likely worsened by electrolyte imbalance and alcohol consumption/withdrawal Alcohol use d/o - severe Agitation (due to delirium) - Recommended/Plan of Treatment Treatment Recommendations and Plan of Treatment: Delirium: - Underlying condition needs to be treated - Supportive measures - Pt has NO capacity to make decisions until delirium clears, i.e. cannot leave AMA - 1:1 - prn ativan and haldol Alcohol: - MOnitor sxs - prn ativan - Refer to rehab after he is cleared - gabapentin 34 min
--- NOTE | 2017-04-26 15:46 | CP.PCM.PN ---
Subjective - Date & Time of Evaluation Date of Evaluation: 04/26/17 Time of Evaluation: 09:00 - Subjective Subjective: clinically same Objective - Vital Signs/Intake and Output Vital Signs (last 24 hours): Temp Pulse Resp BP Pulse Ox 98.5 F 93 H 20 115/73 96 04/26/17 08:46 04/26/17 08:46 04/26/17 08:46 04/26/17 09:45 04/26/17 08:46 Intake and Output: 04/26/17 04/26/17 06:59 18:59 Intake Total 600 Output Total 600 Balance 0 - Medications Medications: Current Medications Furosemide (Lasix) 40 mg IVP DAILY [facility] Last Admin: 04/26/17 09:45 Dose: 40 mg Gabapentin (Neurontin) 400 mg PO TID [facility] Last Admin: 04/26/17 13:54 Dose: 400 mg Haloperidol (Haldol) 5 mg PO Q1H PRN PRN Reason: severe agitation max4x/24h Lactulose (Enulose) 30 gm PO BID [facility] Last Admin: 04/26/17 09:44 Dose: 30 gm Lorazepam (Ativan) 2 mg IVP Q4H PRN PRN Reason: agitation, max 5x/24h Last Admin: 04/26/17 13:53 Dose: 2 mg Ondansetron HCl (Zofran Inj) 4 mg IVP Q6 PRN PRN Reason: Nausea/Vomiting Pantoprazole Sodium (Protonix Ec Tab) 40 mg PO DAILY [facility] Last Admin: 04/26/17 09:44 Dose: 40 mg Pneumococcal Polyvalent Vaccine (Pneumovax 23 Vaccine) 0.5 ml IM .ONCE ONE Stop: 04/27/17 10:01 Potassium Chloride (K-Dur 20 Meq Er Tab) 20 meq PO DAILY [facility] Last Admin: 04/26/17 13:35 Dose: Not Given Prednisolone (Prednisolone) 40 mg PO DAILY [facility] Last Admin: 04/26/17 13:35 Dose: Not Given Rifaximin (Xifaxan) 550 mg PO TID [facility] Last Admin: 04/26/17 13:36 Dose: Not Given Spironolactone (Aldactone) 100 mg PO DAILY [facility] Last Admin: 04/26/17 09:44 Dose: 100 mg - Labs Labs: 04/25/17 07:49 04/26/17 09:15 PT 25.2 SECONDS (9.7-12.2) H 04/26/17 12:21 INR 2.2 04/26/17 12:21 APTT 40 SECONDS (21-34) H 04/24/17 13:49 - Constitutional Appears: Well - Head Exam Head Exam: ATRAUMATIC, NORMAL INSPECTION, NORMOCEPHALIC - Eye Exam Eye Exam: EOMI, Normal appearance, PERRL Pupil Exam: NORMAL ACCOMODATION, PERRL - ENT Exam ENT Exam: Mucous Membranes Moist, Normal Exam - Neck Exam Neck Exam: Full ROM, Normal Inspection. absent: Lymphadenopathy - Respiratory Exam Respiratory Exam: Decreased Breath Sounds - Cardiovascular Exam Cardiovascular Exam: REGULAR RHYTHM, +S1, +S2 - GI/Abdominal Exam GI & Abdominal Exam: Soft, Diminished Bowel Sounds - Rectal Exam Rectal Exam: Deferred
[2017-04-27 05:01] VITALS: RESP 20
[2017-04-27 07:28] LABS: INR 2.3
[2017-04-27 07:38] LABS: CHLORIDE 94 mmol/L (98-107); POTASSIUM 2.9 mmol/L (3.6-5.2); SODIUM 131 mmol/L (132-148)
[2017-04-27 07:40] LABS: ALB/GLOB RATIO 0.4 (1.0-2.1); ALKALINE PHOSPHATASE 192 U/L (38-126); AST/SGOT 245 U/L (17-59); BILIRUBIN,TOTAL 12.2 mg/dL (0.2-1.3); BLOOD UREA NITROGEN 7 mg/dL (9-20); CARBON DIOXIDE 27 mmol/L (22-30); GFR AFRICAN-AMERICAN > 60; TOTAL PROTEIN 7.9 g/dL (6.3-8.3)
[2017-04-27 07:41] LABS: ALT/SGPT 68 U/L (21-72); CALCIUM 7.4 mg/dl (8.6-10.4); GLUCOSE,RANDOM 79 mg/dL (75-110); MAGNESIUM 1.6 mg/dL (1.6-2.3)
[2017-04-27] MEDS: Potassium Chloride 20 mEq ER Tab PO SCH ×2 (09:01)
[2017-04-27] MEDS: Pantoprazole 40 mg EC Tab PO SCH (09:02)
[2017-04-27] MEDS: PrednisoLONE 6 MG/2 ML SYR PO SCH (09:05)
[2017-04-27] MEDS ORDERED: Pneumococcal 23-Valent Vaccine IM ONE ×2 (10:00→11:45)
[2017-04-27] MEDS ORDERED: Potassium Chloride 20 mEq ER Tab PO ONE (12:00)
[2017-04-27] MEDS ORDERED: Potassium Chloride 20 mEq ER Tab PO SCH (12:00)
--- NOTE | 2017-04-27 14:21 | PCM.PYCHPN ---
Psychiatric Progress Note - Psychiatric Progress Note Patient seen today, length of contact: 15 min. Patient Chief Complaint: "I feel better." Problems Identified/Issues Discussed: The pt. is seen, chart reviewed, case discussed with staff. Pt.'s symptoms are improving, but he continues to provide irrelevant answers to questions being asked. He continues to have auditory hallucinations. Pt. denies homicidal and suicidal ideation. He seems more oriented to place and time and has some insight into his condition. Translation is made by a clinical staff. Pt. is compliant with medications and reports no side-effects. After care discussed, support and psychoeducation given. Medication Change: Yes Medical Record Reviewed: Yes Mental Status Examination - Cognitive Function Orientation: Person, Place, Situation, Time Memory: Impaired Attention: WNL Concentration: Poor Association: Loose Fund of Knowledge: WNL - Mood Mood: Anxious, Other (angry at times) - Affect Affect: Constricted - Speech Speech: Appropriate - Formal Thought Process Formal Thought Process: Hallucinations, Loosening of associations - Suicidal Ideation Suicidal Ideation: No - Homicidal Ideation Homicidal Ideation: No Goal/Treatment Plan - Goal/Treatment Plan Need for Continued Stay: Remain at risks for inpatient hospitalization, Discharge may exacerbated symptoms Progress Toward Problem(s) and Goals/Treatment Plan: Delirium: - Underlying condition needs to be treated - Supportive measures - Pt has NO capacity to make decisions until delirium clears, i.e. cannot leave AMA - 1:1 - prn ativan and haldol Alcohol: - MOnitor sxs - prn ativan - Refer to rehab after he is cleared - gabapentin - Smoking Cessation Smoking Cessation Initiated: No
--- NOTE | 2017-04-27 15:51 | CP.PCM.PN ---
<Kaitlynn Flores - Last Filed: 04/27/17 17:29> Subjective - Date & Time of Evaluation Date of Evaluation: 04/27/17 Time of Evaluation: 07:15 - Subjective Subjective: PGY4 GI Followup Pt is still confused according to RN 2-3 BM No other complaints Denies any abd pain tolerating diet ROS: 10 point ROS neg other than above Objective - Vital Signs/Intake and Output Vital Signs (last 24 hours): Temp Pulse Resp BP Pulse Ox 98.4 F 80 20 111/71 100 04/27/17 14:20 04/27/17 14:20 04/27/17 14:20 04/27/17 14:20 04/27/17 14:20 Intake and Output: 04/27/17 04/27/17 06:59 18:59 Intake Total 300 500 Output Total 250 Balance 300 250 - Medications Medications: Current Medications Furosemide (Lasix) 40 mg IVP DAILY [facility] Last Admin: 04/27/17 10:00 Dose: Not Given Gabapentin (Neurontin) 400 mg PO TID [facility] Last Admin: 04/27/17 13:56 Dose: 400 mg Haloperidol (Haldol) 5 mg PO Q1H PRN PRN Reason: severe agitation max4x/24h Potassium Chloride (Potassium Chloride 10 Meq/100 Ml) 10 meq in 100 mls @ 100 mls/hr IVPB Q2 [facility] Stop: 04/27/17 16:59 Last Admin: 04/27/17 13:56 Dose: 100 mls/hr Lactulose (Enulose) 30 gm PO BID [facility] Last Admin: 04/27/17 09:01 Dose: 30 gm Lorazepam (Ativan) 2 mg IVP Q4H PRN PRN Reason: agitation, max 5x/24h Last Admin: 04/26/17 20:24 Dose: 2 mg Ondansetron HCl (Zofran Inj) 4 mg IVP Q6 PRN PRN Reason: Nausea/Vomiting Pantoprazole Sodium (Protonix Ec Tab) 40 mg PO DAILY [facility] Last Admin: 04/27/17 09:02 Dose: 40 mg Potassium Chloride (K-Dur 20 Meq Er Tab) 20 meq PO DAILY [facility] Last Admin: 04/27/17 09:01 Dose: 20 meq Potassium Chloride (K-Dur 20 Meq Er Tab) 20 meq PO DAILY [facility] Last Admin: 04/27/17 09:01 Dose: 20 meq Prednisolone (Prednisolone) 40 mg PO DAILY [facility] Last Admin: 04/27/17 09:05 Dose: 40 mg Rifaximin (Xifaxan) 550 mg PO TID [facility] Last Admin: 04/27/17 13:55 Dose: 550 mg Spironolactone (Aldactone) 100 mg PO DAILY [facility] Last Admin: 04/27/17 09:01 Dose: 100 mg - Labs Labs: 04/25/17 07:49 04/27/17 07:07 PT 26.8 SECONDS (9.7-12.2) H 04/27/17 07:07 INR 2.3 04/27/17 07:07 APTT 40 SECONDS (21-34) H 04/24/17 13:49 - Head Exam Head Exam: ATRAUMATIC - Eye Exam Eye Exam: Scleral icterus - ENT Exam ENT Exam: Mucous Membranes Moist - Respiratory Exam Respiratory Exam: Clear to Ausculation Bilateral, NORMAL BREATHING PATTERN. absent: Rales, Rhonchi, Wheezes - Cardiovascular Exam Cardiovascular Exam: REGULAR RHYTHM, +S1, +S2 - GI/Abdominal Exam GI & Abdominal Exam: Soft, Normal Bowel Sounds, Organomegaly. absent: Tenderness Additional comments: obese - Extremities Exam Extremities Exam: Joint Swelling, Pedal Edema - Neurological Exam Neurological Exam: Altered, Awake, Oriented x3 - Psychiatric Exam Psychiatric exam: Normal Affect, Normal Mood - Skin Skin Exam: Dry, Intact, Warm Additional comments: juandiced Assessment and Plan - Assessment and Plan (Free Text) Assessment: Kimberly Loya is a 46M w/ hx of Cirrohsis 2/2 Etoh who presented to the ED for head suture removal and was found to have hyper bilirubinemia Acute Hepatitis, EtOH?, DF:[id number] ETOH cirrhosis Hepatic enceph HTN Hyperlipidemia Morbid obesity hx of TIA Plan: -MELD: 28 -Continue prednisolone 40mg daily -pt will eventually need a colonoscopy and endoscopy as an oupt -continue low salt diet -could not appreciate sig ascities on abd exam, no indication for abd paracentesis at this time -waiting on autoimmune w/u and hepatitis panel -explained the importance of Etoh abstinence with video interp, pt acknowledged understanding -will need follow-up with GI as an outpt -continue lasix 40mg daily and aldactone 100mg daily -CT liver; no mass found; + liver consistent with cirrhosis D/w Dr. Kerr <Ashish Kerr Y - Last Filed: 04/27/17 17:58> Objective - Vital Signs/Intake and Output Vital Signs (last 24 hours): Temp Pulse Resp BP Pulse Ox 98.4 F 89 20 117/75 98 04/27/17 16:00 04/27/17 16:00 04/27/17 16:00 04/27/17 16:00 04/27/17 16:00 Intake and Output: 04/27/17 04/27/17 06:59 18:59 Intake Total 300 500 Output Total 250 Balance 300 250 - Medications Medications: Current Medications Furosemide (Lasix) 40 mg IVP DAILY [facility] Last Admin: 04/27/17 10:00 Dose: Not Given Gabapentin (Neurontin) 400 mg PO TID [facility] Last Admin: 04/27/17 13:56 Dose: 400 mg Haloperidol (Haldol) 5 mg PO Q1H PRN PRN Reason: severe agitation max4x/24h Lactulose (Enulose) 30 gm PO BID [facility] Last Admin: 04/27/17 09:01 Dose: 30 gm Lorazepam (Ativan) 2 mg IVP Q4H PRN PRN Reason: agitation, max 5x/24h Last Admin: 04/26/17 20:24 Dose: 2 mg Ondansetron HCl (Zofran Inj) 4 mg IVP Q6 PRN PRN Reason: Nausea/Vomiting Pantoprazole Sodium (Protonix Ec Tab) 40 mg PO DAILY [facility] Last Admin: 04/27/17 09:02 Dose: 40 mg Potassium Chloride (K-Dur 20 Meq Er Tab) 20 meq PO DAILY [facility] Last Admin: 04/27/17 09:01 Dose: 20 meq Potassium Chloride (K-Dur 20 Meq Er Tab) 20 meq PO DAILY [facility] Last Admin: 04/27/17 09:01 Dose: 20 meq Prednisolone (Prednisolone) 40 mg PO DAILY [facility] Last Admin: 04/27/17 09:05 Dose: 40 mg Rifaximin (Xifaxan) 550 mg PO TID [facility] Last Admin: 04/27/17 13:55 Dose: 550 mg Spironolactone (Aldactone) 100 mg PO DAILY [facility] Last Admin: 04/27/17 09:01 Dose: 100 mg - Labs Labs: 04/25/17 07:49 04/27/17 07:07 PT 26.8 SECONDS (9.7-12.2) H 04/27/17 07:07 INR 2.3 04/27/17 07:07 APTT 40 SECONDS (21-34) H 04/24/17 13:49 Attending/Attestation - Attestation I have personally seen and examined this patient.: Yes I have fully participated in the care of the patient.: Yes I have reviewed all pertinent clinical information, including history, physical exam and plan: Yes Notes (Text): 04/27/17 17:54 I have seen and examined patient with GI fellow. No acute events overnight, he is seen resting in bed comfortably. He denies abdominal pain, nausea, vomiting , fever/chills. Tolerating PO diet without difficulty. He had 2 bowel movements overnight, none today thus far. Review of vitals from today are normal. Decompensated ETOH cirrhosis Acute ETOH hepatitis Altered mental status, resolved - hepatic encephalopathy HTN Obesity TIA - Low sodium diet as tolerated - Continue with prednisolone therapy for treatment duration of 4 weeks followed by slow taper - LFTs stable, continue to monitor. Awaiting autoimmune and hepatitis panels. - Continue with diuretic therapy, monitor electrolytes - Continue with lactulose and xifaxan regimen for prevention of HE - ETOH cessation counseling - Triple phase liver CT reviewed, no focal liver lesion identified - Patient would benefit from elective outpatient endoscopic evaluation following resolution of acute symptoms. No further planned GI intervention, will sign off case. Please reconsult as necessary, thank you.
--- NOTE | 2017-04-27 18:08 | CP.PCM.PN ---
Subjective - Date & Time of Evaluation Date of Evaluation: 04/27/17 Time of Evaluation: 08:20 - Subjective Subjective: clinically same Objective - Vital Signs/Intake and Output Vital Signs (last 24 hours): Temp Pulse Resp BP Pulse Ox 98.4 F 89 20 117/75 98 04/27/17 16:00 04/27/17 16:00 04/27/17 16:00 04/27/17 16:00 04/27/17 16:00 Intake and Output: 04/27/17 04/27/17 06:59 18:59 Intake Total 300 500 Output Total 250 Balance 300 250 - Medications Medications: Current Medications Furosemide (Lasix) 40 mg IVP DAILY [facility] Last Admin: 04/27/17 10:00 Dose: Not Given Gabapentin (Neurontin) 400 mg PO TID [facility] Last Admin: 04/27/17 13:56 Dose: 400 mg Haloperidol (Haldol) 5 mg PO Q1H PRN PRN Reason: severe agitation max4x/24h Lactulose (Enulose) 30 gm PO BID [facility] Last Admin: 04/27/17 09:01 Dose: 30 gm Lorazepam (Ativan) 2 mg IVP Q4H PRN PRN Reason: agitation, max 5x/24h Last Admin: 04/26/17 20:24 Dose: 2 mg Ondansetron HCl (Zofran Inj) 4 mg IVP Q6 PRN PRN Reason: Nausea/Vomiting Pantoprazole Sodium (Protonix Ec Tab) 40 mg PO DAILY [facility] Last Admin: 04/27/17 09:02 Dose: 40 mg Potassium Chloride (K-Dur 20 Meq Er Tab) 20 meq PO DAILY [facility] Last Admin: 04/27/17 09:01 Dose: 20 meq Potassium Chloride (K-Dur 20 Meq Er Tab) 20 meq PO DAILY [facility] Last Admin: 04/27/17 09:01 Dose: 20 meq Prednisolone (Prednisolone) 40 mg PO DAILY [facility] Last Admin: 04/27/17 09:05 Dose: 40 mg Rifaximin (Xifaxan) 550 mg PO TID [facility] Last Admin: 04/27/17 13:55 Dose: 550 mg Spironolactone (Aldactone) 100 mg PO DAILY [facility] Last Admin: 04/27/17 09:01 Dose: 100 mg - Labs Labs: 04/25/17 07:49 04/27/17 07:07 PT 26.8 SECONDS (9.7-12.2) H 04/27/17 07:07 INR 2.3 04/27/17 07:07 APTT 40 SECONDS (21-34) H 04/24/17 13:49 - Constitutional Appears: Well - Head Exam Head Exam: ATRAUMATIC, NORMAL INSPECTION, NORMOCEPHALIC - Eye Exam Eye Exam: EOMI, Normal appearance, PERRL Pupil Exam: NORMAL ACCOMODATION, PERRL - ENT Exam ENT Exam: Mucous Membranes Moist, Normal Exam - Neck Exam Neck Exam: Full ROM, Normal Inspection. absent: Lymphadenopathy - Respiratory Exam Respiratory Exam: Decreased Breath Sounds - Cardiovascular Exam Cardiovascular Exam: REGULAR RHYTHM, +S1, +S2 - GI/Abdominal Exam GI & Abdominal Exam: Soft, Diminished Bowel Sounds - Rectal Exam Rectal Exam: Deferred
[2017-04-27 19:59] LABS: BASO % 0.4 % (0.0-2.0); EOS % 0.3 % (0.0-4.0); HEMATOCRIT 31.8 % (35.0-51.0); LYMPH # 0.6 K/uL (1.0-4.3); LYMPH % 11.4 % (20.0-40.0); MEAN CELL VOLUME 95.4 fL (80.0-94.0); MEAN CORPUSCULAR HEMOGLOBIN 32.2 pg (27.0-31.0); MEAN CORPUSCULAR HGB CONC 33.7 g/dL (33.0-37.0); MEAN PLATELET VOLUME 7.7 fL (7.2-11.7); MONO # 0.5 K/uL (0.0-0.8); MONO % 9.1 % (0.0-10.0); NRBC % 0.1 % (0.0-2.0); WHITE BLOOD COUNT 5.4 K/uL (4.8-10.8)
[2017-04-27 20:10] LABS: CHLORIDE 95 mmol/L (98-107); SODIUM 129 mmol/L (132-148)
[2017-04-27 20:12] LABS: AST/SGOT 262 U/L (17-59); BILIRUBIN,TOTAL 13.2 mg/dL (0.2-1.3); CARBON DIOXIDE 26 mmol/L (22-30); GFR AFRICAN-AMERICAN > 60
[2017-04-27 20:13] LABS: ALB/GLOB RATIO 0.5 (1.0-2.1); ALKALINE PHOSPHATASE 210 U/L (38-126); ALT/SGPT 71 U/L (21-72); BLOOD UREA NITROGEN 6 mg/dL (9-20); GLUCOSE,RANDOM 117 mg/dL (75-110); TOTAL PROTEIN 8.4 g/dL (6.3-8.3)
[2017-04-27 20:14] LABS: CALCIUM 7.9 mg/dl (8.6-10.4)
[2017-04-28] MEDS: Potassium Chloride 20 mEq ER Tab PO SCH ×2 (09:52→13:38)
[2017-04-28] MEDS: Pantoprazole 40 mg EC Tab PO SCH (09:52)
[2017-04-28] MEDS: PrednisoLONE 6 MG/2 ML SYR PO SCH (10:31)
[2017-04-28 11:43] LABS: BASO % 0.3 % (0.0-2.0); EOS # 0.1 K/uL (0.0-0.7); EOS % 0.8 % (0.0-4.0); HEMATOCRIT 33.5 % (35.0-51.0); LYMPH # 1.3 K/uL (1.0-4.3); LYMPH % 17.3 % (20.0-40.0); MEAN CELL VOLUME 96.3 fL (80.0-94.0); MEAN CORPUSCULAR HEMOGLOBIN 32.1 pg (27.0-31.0); MEAN CORPUSCULAR HGB CONC 33.4 g/dL (33.0-37.0); MEAN PLATELET VOLUME 7.5 fL (7.2-11.7); MONO # 1.1 K/uL (0.0-0.8); MONO % 14.5 % (0.0-10.0); NRBC % 0.1 % (0.0-2.0); RED CELL DISTRIBUTION WIDTH 29.3 % (11.5-14.5); WHITE BLOOD COUNT 7.5 K/uL (4.8-10.8)
[2017-04-28 12:02] LABS: CHLORIDE 95 mmol/L (98-107); POTASSIUM 3.3 mmol/L (3.6-5.2); SODIUM 131 mmol/L (132-148)
[2017-04-28 12:04] LABS: ALB/GLOB RATIO 0.5 (1.0-2.1); ALKALINE PHOSPHATASE 228 U/L (38-126); AST/SGOT 256 U/L (17-59); BILIRUBIN,TOTAL 14.2 mg/dL (0.2-1.3); BLOOD UREA NITROGEN 7 mg/dL (9-20); CARBON DIOXIDE 26 mmol/L (22-30); GFR AFRICAN-AMERICAN > 60; TOTAL PROTEIN 8.8 g/dL (6.3-8.3)
[2017-04-28 12:05] LABS: ALT/SGPT 79 U/L (21-72); CALCIUM 8.3 mg/dl (8.6-10.4); GLUCOSE,RANDOM 106 mg/dL (75-110)
[2017-04-28 13:49] LABS: LKM-1 Ab (IgG) <=20.0 U (<=20.0)
--- NOTE | 2017-04-28 14:21 | CP.PCM.PN ---
Subjective - Date & Time of Evaluation Date of Evaluation: 04/28/17 Time of Evaluation: 14:15 - Subjective Subjective: Service for Dr. Michelle Flores Pt seen and examined at bedside. No acute distress. No events overnight. Pt is eating and sleeping well. He reports one loose watery BM since last night. Otherwise no complaints. No fevers, chills, vomiting, cp, sob. Objective - Vital Signs/Intake and Output Vital Signs (last 24 hours): Temp Pulse Resp BP Pulse Ox 98.3 F 78 20 137/87 97 04/28/17 07:40 04/28/17 07:40 04/28/17 07:40 04/28/17 09:49 04/28/17 07:40 Intake and Output: 04/28/17 04/28/17 06:59 18:59 Intake Total 780 Output Total 600 Balance 180 - Medications Medications: Current Medications Furosemide (Lasix) 40 mg IVP DAILY [facility] Last Admin: 04/28/17 09:49 Dose: 40 mg Gabapentin (Neurontin) 400 mg PO TID [facility] Last Admin: 04/28/17 13:38 Dose: 400 mg Haloperidol (Haldol) 5 mg PO Q1H PRN PRN Reason: severe agitation max4x/24h Lactulose (Enulose) 30 gm PO BID [facility] Last Admin: 04/28/17 09:50 Dose: 30 gm Lorazepam (Ativan) 2 mg IVP Q4H PRN PRN Reason: agitation, max 5x/24h Last Admin: 04/26/17 20:24 Dose: 2 mg Ondansetron HCl (Zofran Inj) 4 mg IVP Q6 PRN PRN Reason: Nausea/Vomiting Pantoprazole Sodium (Protonix Ec Tab) 40 mg PO DAILY [facility] Last Admin: 04/28/17 09:52 Dose: 40 mg Potassium Chloride (K-Dur 20 Meq Er Tab) 20 meq PO DAILY [facility] Last Admin: 04/28/17 09:52 Dose: 20 meq Potassium Chloride (K-Dur 20 Meq Er Tab) 20 meq PO DAILY [facility] Last Admin: 04/28/17 13:38 Dose: Not Given Prednisolone (Prednisolone) 40 mg PO DAILY [facility] Last Admin: 04/28/17 10:31 Dose: 40 mg Rifaximin (Xifaxan) 550 mg PO TID [facility] Last Admin: 08/31/17 13:38 Dose: 550 mg Spironolactone (Aldactone) 100 mg PO DAILY [facility] Last Admin: 04/28/17 09:53 Dose: 100 mg - Labs Labs: 04/28/17 11:31 04/28/17 11:31 PT 26.8 SECONDS (9.7-12.2) H 04/27/17 07:07 INR 2.3 04/27/17 07:07 APTT 40 SECONDS (21-34) H 04/24/17 13:49 - Constitutional Appears: Non-toxic, No Acute Distress - Head Exam Head Exam: ATRAUMATIC, NORMAL INSPECTION, NORMOCEPHALIC - Eye Exam Eye Exam: EOMI - ENT Exam ENT Exam: Mucous Membranes Moist - Neck Exam Neck Exam: Full ROM, Normal Inspection - Respiratory Exam Respiratory Exam: NORMAL BREATHING PATTERN. absent: Respiratory Distress - Cardiovascular Exam Cardiovascular Exam: REGULAR RHYTHM, +S1, +S2 - GI/Abdominal Exam GI & Abdominal Exam: Soft, Normal Bowel Sounds. absent: Tenderness - Extremities Exam Extremities Exam: Full ROM - Neurological Exam Neurological Exam: Alert, Awake, CN II-XII Intact - Psychiatric Exam Psychiatric exam: Normal Affect, Normal Mood - Skin Skin Exam: Dry, Intact, Normal Color, Warm Assessment and Plan - Assessment and Plan (Free Text) Assessment: This is a 46 yo male with past medical hx of cirrhosis of the liver, TIA, HTN, HLD presenting for head suture removal and found to have hyperbilirubinemia 1. Acute on chronic liver disease -GI consulted. recs appreciated. -EGD should be done as an outpatient -triple phase ct shows extensive varices, lymph nodes, cirrhosis -continue lactulose 30 BID -continue prednisolone 40 PO daily -continue rifaximin 500 po daily -spironolactone 100 po daily 2. hx of delirium -haldol as needed -ativan as needed 3. hx of alcoholism -abstinence stressed -lasix 40 daily -gabapentin 400 po tid -zofran -kdur 20 daily 4. GI/DVT ppx -protonix daily -scds
--- NOTE | 2017-04-28 15:15 | PCM.PYCHPN ---
Psychiatric Progress Note - Psychiatric Progress Note Patient seen today, length of contact: 15 min. Patient Chief Complaint: "I am feeling okay." Problems Identified/Issues Discussed: The pt. is seen, chart reviewed, case discussed with staff. Pt's symptoms are improving. Pt. denies tremors. He is more oriented to place and time. Pt. is compliant with medications and reports no side-effects. After care discussed, support and psychoeducation given. Medication Change: Yes Medical Record Reviewed: Yes Mental Status Examination - Cognitive Function Orientation: Person, Place, Situation, Time Memory: Impaired Attention: WNL Concentration: Poor Association: Loose Fund of Knowledge: WNL - Mood Mood: Anxious, Other (angry at times) - Affect Affect: Constricted - Speech Speech: Appropriate - Formal Thought Process Formal Thought Process: Loosening of associations - Suicidal Ideation Suicidal Ideation: No - Homicidal Ideation Homicidal Ideation: No Goal/Treatment Plan - Goal/Treatment Plan Need for Continued Stay: Remain at risks for inpatient hospitalization, Discharge may exacerbated symptoms Progress Toward Problem(s) and Goals/Treatment Plan: Delirium: - Underlying condition needs to be treated - Supportive measures - Pt's capacity has improved - 1:1 stopped, in a 4-bed room - Haldol 5 mg PO Q1H PRN - Ativan 2 mg IVP Q4H PRN Alcohol: - Monitor sxs - Ativan 2 mg IVP Q4H PRN - Refer to rehab after he is cleared - Neurontin 400 mg PO TID Psychiatrist will sign off. Call us if questions. - Smoking Cessation Smoking Cessation Initiated: No
--- NOTE | 2017-04-28 16:54 | CP.PCM.PN ---
Subjective - Date & Time of Evaluation Date of Evaluation: 04/28/17 Time of Evaluation: 08:00 - Subjective Subjective: clinically same Objective - Vital Signs/Intake and Output Vital Signs (last 24 hours): Temp Pulse Resp BP Pulse Ox 99 F 78 20 122/71 97 04/28/17 16:00 04/28/17 16:00 04/28/17 16:00 04/28/17 16:00 04/28/17 16:00 Intake and Output: 04/28/17 04/28/17 06:59 18:59 Intake Total 780 500 Output Total 600 Balance 180 500 - Medications Medications: Current Medications Furosemide (Lasix) 40 mg IVP DAILY [facility] Last Admin: 04/28/17 09:49 Dose: 40 mg Gabapentin (Neurontin) 400 mg PO TID [facility] Last Admin: 04/28/17 13:38 Dose: 400 mg Haloperidol (Haldol) 5 mg PO Q1H PRN PRN Reason: severe agitation max4x/24h Lactulose (Enulose) 30 gm PO BID [facility] Last Admin: 04/28/17 09:50 Dose: 30 gm Lorazepam (Ativan) 2 mg IVP Q4H PRN PRN Reason: agitation, max 5x/24h Last Admin: 04/26/17 20:24 Dose: 2 mg Ondansetron HCl (Zofran Inj) 4 mg IVP Q6 PRN PRN Reason: Nausea/Vomiting Pantoprazole Sodium (Protonix Ec Tab) 40 mg PO DAILY [facility] Last Admin: 04/28/17 09:52 Dose: 40 mg Potassium Chloride (K-Dur 20 Meq Er Tab) 20 meq PO DAILY [facility] Last Admin: 04/28/17 09:52 Dose: 20 meq Potassium Chloride (K-Dur 20 Meq Er Tab) 20 meq PO DAILY [facility] Last Admin: 04/28/17 13:38 Dose: Not Given Prednisolone (Prednisolone) 40 mg PO DAILY [facility] Last Admin: 04/28/17 10:31 Dose: 40 mg Rifaximin (Xifaxan) 550 mg PO TID [facility] Last Admin: 04/28/17 13:38 Dose: 550 mg Spironolactone (Aldactone) 100 mg PO DAILY [facility] Last Admin: 04/28/17 09:53 Dose: 100 mg - Labs Labs: 04/28/17 11:31 04/28/17 11:31 PT 26.8 SECONDS (9.7-12.2) H 04/27/17 07:07 INR 2.3 04/27/17 07:07 APTT 40 SECONDS (21-34) H 04/24/17 13:49
--- NOTE | 2017-04-29 10:29 | CP.PCM.PN ---
Subjective - Date & Time of Evaluation Date of Evaluation: 04/29/17 Time of Evaluation: 07:45 - Subjective Subjective: PGY2 Resident - Medicine Progress Note Patient seen and examined at bedside. No overnight events per nursing. Patient has no acute complaints. He reports he is eating well, had a normal BM today, and denies abdominal pain. Denies fever, chills, headache, changes in vision, chest pain, palpitations, dyspnea, cough, abdominal pain, nausea/vomiting, diarrhea/constipation, dysuria, urinary frequency, change in urinary stream, or any additional acute complaints. Objective - Vital Signs/Intake and Output Vital Signs (last 24 hours): Temp Pulse Resp BP Pulse Ox 98.4 F 75 20 107/71 97 04/29/17 07:49 04/29/17 07:49 04/29/17 07:49 04/29/17 07:49 04/29/17 07:49 - Medications Medications: Current Medications Furosemide (Lasix) 40 mg IVP DAILY [facility] Last Admin: 04/28/17 09:49 Dose: 40 mg Gabapentin (Neurontin) 400 mg PO TID [facility] Last Admin: 04/28/17 17:49 Dose: 400 mg Haloperidol (Haldol) 5 mg PO Q1H PRN PRN Reason: severe agitation max4x/24h Lactulose (Enulose) 30 gm PO BID [facility] Last Admin: 04/28/17 17:49 Dose: 30 gm Lorazepam (Ativan) 2 mg IVP Q4H PRN PRN Reason: agitation, max 5x/24h Last Admin: 04/26/17 20:24 Dose: 2 mg Ondansetron HCl (Zofran Inj) 4 mg IVP Q6 PRN PRN Reason: Nausea/Vomiting Last Admin: 04/28/17 17:50 Dose: 4 mg Pantoprazole Sodium (Protonix Ec Tab) 40 mg PO DAILY [facility] Last Admin: 04/28/17 09:52 Dose: 40 mg Potassium Chloride (K-Dur 20 Meq Er Tab) 20 meq PO DAILY [facility] Last Admin: 04/28/17 09:52 Dose: 20 meq Potassium Chloride (K-Dur 20 Meq Er Tab) 20 meq PO DAILY [facility] Last Admin: 04/28/17 13:38 Dose: Not Given Prednisolone (Prednisolone) 40 mg PO DAILY [facility] Last Admin: 04/28/17 10:31 Dose: 40 mg Rifaximin (Xifaxan) 550 mg PO TID [facility] Last Admin: 04/28/17 17:49 Dose: 550 mg Spironolactone (Aldactone) 100 mg PO DAILY [facility] Last Admin: 04/28/17 09:53 Dose: 100 mg - Labs Labs: 04/28/17 11:31 04/28/17 11:31 PT 26.8 SECONDS (9.7-12.2) H 04/27/17 07:07 INR 2.3 04/27/17 07:07 APTT 40 SECONDS (21-34) H 04/24/17 13:49 - Additional Findings Additional findings: - Constitutional Appears: Non-toxic, No Acute Distress - Head Exam Head Exam: absent: ATRAUMATIC, NORMAL INSPECTION, NORMOCEPHALIC - L posterior scalp sutures intact, no discharge - Eye Exam Eye Exam: EOMI Note: Scleral icterus bilaterally - ENT Exam ENT Exam: Mucous Membranes Moist - Neck Exam Neck Exam: Full ROM, Normal Inspection - Respiratory Exam Respiratory Exam: NORMAL BREATHING PATTERN. absent: Respiratory Distress - Cardiovascular Exam Cardiovascular Exam: REGULAR RHYTHM, +S1, +S2 - GI/Abdominal Exam GI & Abdominal Exam: Soft, Normal Bowel Sounds. absent: Tenderness - Extremities Exam Extremities Exam: Full ROM +LE edema, 1+ pitting to the mid-kan - Neurological Exam Neurological Exam: Alert, Awake, CN II-XII Intact - Psychiatric Exam Psychiatric exam: Normal Affect, Normal Mood - Skin Skin Exam: Dry, Intact, Normal Color, Warm Assessment and Plan - Assessment and Plan (Free Text) Assessment: This is a 46 yo male with past medical hx of cirrhosis of the liver, TIA, HTN, HLD presenting for head suture removal and found to have hyperbilirubinemia 1. Acute on chronic liver disease 04/29: AST/ALT Alk P levels increasing. Likely 2/2 liver cirrhosis. Patient completed rifaximin 500 po daily today. -GI consulted. recs appreciated. -EGD should be done as an outpatient -triple phase ct shows extensive varices, lymph nodes, cirrhosis -continue lactulose 30 BID -continue prednisolone 40 PO daily -spironolactone 100 po daily 2. hx of delirium - Psychiatry consult, Dr. Carbajal, help appreciated. -haldol as needed -ativan as needed 3. hx of alcoholism - Psychiatry consult, Dr. Ozden, help appreciated. -abstinence stressed -lasix 40 daily -gabapentin 400 po tid -zofran -kdur 20 daily 4. GI/DVT ppx -protonix daily -scds -1:1 stopped today.
[2017-04-29] MEDS: Potassium Chloride 20 mEq ER Tab PO SCH ×2 (10:42→11:38)
[2017-04-29] MEDS: Pantoprazole 40 mg EC Tab PO SCH (10:42)
[2017-04-29] MEDS: PrednisoLONE 6 MG/2 ML SYR PO SCH (10:44)
[2017-04-29 11:28] LABS: BASO % 0.3 % (0.0-2.0); EOS # 0.1 K/uL (0.0-0.7); EOS % 0.8 % (0.0-4.0); HEMATOCRIT 35.5 % (35.0-51.0); LYMPH # 1.5 K/uL (1.0-4.3); LYMPH % 18.6 % (20.0-40.0); MEAN CELL VOLUME 97.5 fL (80.0-94.0); MEAN CORPUSCULAR HEMOGLOBIN 32.9 pg (27.0-31.0); MEAN CORPUSCULAR HGB CONC 33.7 g/dL (33.0-37.0); MEAN PLATELET VOLUME 7.6 fL (7.2-11.7); MONO % 12.8 % (0.0-10.0); NRBC % 0.3 % (0.0-2.0); RED CELL DISTRIBUTION WIDTH 29.3 % (11.5-14.5); WHITE BLOOD COUNT 8.2 K/uL (4.8-10.8)
--- NOTE | 2017-04-29 11:28 | CP.PCM.PN ---
Subjective - Date & Time of Evaluation Date of Evaluation: 04/29/17 Time of Evaluation: 07:20 - Subjective Subjective: clinically same Objective - Vital Signs/Intake and Output Vital Signs (last 24 hours): Temp Pulse Resp BP Pulse Ox 98.4 F 75 20 107/71 97 04/29/17 07:49 04/29/17 07:49 04/29/17 07:49 04/29/17 10:42 04/29/17 07:49 - Medications Medications: Current Medications Furosemide (Lasix) 40 mg IVP DAILY [facility] Last Admin: 04/29/17 10:42 Dose: 40 mg Gabapentin (Neurontin) 400 mg PO TID [facility] Last Admin: 04/29/17 10:44 Dose: 400 mg Haloperidol (Haldol) 5 mg PO Q1H PRN PRN Reason: severe agitation max4x/24h Lactulose (Enulose) 30 gm PO BID [facility] Last Admin: 04/29/17 10:43 Dose: 30 gm Lorazepam (Ativan) 2 mg IVP Q4H PRN PRN Reason: agitation, max 5x/24h Last Admin: 04/26/17 20:24 Dose: 2 mg Ondansetron HCl (Zofran Inj) 4 mg IVP Q6 PRN PRN Reason: Nausea/Vomiting Last Admin: 04/28/17 17:50 Dose: 4 mg Pantoprazole Sodium (Protonix Ec Tab) 40 mg PO DAILY [facility] Last Admin: 04/29/17 10:42 Dose: 40 mg Potassium Chloride (K-Dur 20 Meq Er Tab) 20 meq PO DAILY [facility] Last Admin: 04/29/17 10:42 Dose: 20 meq Potassium Chloride (K-Dur 20 Meq Er Tab) 20 meq PO DAILY [facility] Last Admin: 04/28/17 13:38 Dose: Not Given Prednisolone (Prednisolone) 40 mg PO DAILY [facility] Last Admin: 04/29/17 10:44 Dose: 40 mg Rifaximin (Xifaxan) 550 mg PO TID [facility] Last Admin: 04/29/17 10:44 Dose: 550 mg Spironolactone (Aldactone) 100 mg PO DAILY [facility] Last Admin: 04/29/17 10:44 Dose: 100 mg - Labs Labs: 04/28/17 11:31 04/28/17 11:31 PT 26.8 SECONDS (9.7-12.2) H 04/27/17 07:07 INR 2.3 04/27/17 07:07 APTT 40 SECONDS (21-34) H 04/24/17 13:49 - Constitutional Appears: Well - Head Exam Head Exam: ATRAUMATIC, NORMAL INSPECTION, NORMOCEPHALIC - Eye Exam Eye Exam: EOMI, Normal appearance, PERRL Pupil Exam: NORMAL ACCOMODATION, PERRL - ENT Exam ENT Exam: Mucous Membranes Moist, Normal Exam - Neck Exam Neck Exam: Full ROM, Normal Inspection. absent: Lymphadenopathy - Respiratory Exam Respiratory Exam: Decreased Breath Sounds - Cardiovascular Exam Cardiovascular Exam: REGULAR RHYTHM, +S1, +S2 - GI/Abdominal Exam GI & Abdominal Exam: Soft, Diminished Bowel Sounds - Rectal Exam Rectal Exam: Deferred
[2017-04-29 11:46] LABS: CHLORIDE 95 mmol/L (98-107); SODIUM 133 mmol/L (132-148)
[2017-04-29 11:47] LABS: POTASSIUM 3.7 mmol/L (3.6-5.2)
[2017-04-29 11:49] LABS: ALB/GLOB RATIO 0.5 (1.0-2.1); ALKALINE PHOSPHATASE 235 U/L (38-126); ALT/SGPT 82 U/L (21-72); AST/SGOT 273 U/L (17-59); BILIRUBIN,TOTAL 16.5 mg/dL (0.2-1.3); BLOOD UREA NITROGEN 10 mg/dL (9-20); CARBON DIOXIDE 29 mmol/L (22-30); GFR AFRICAN-AMERICAN > 60; GLUCOSE,RANDOM 88 mg/dL (75-110); PHOSPHOROUS 2.7 mg/dL (2.5-4.5); TOTAL PROTEIN 9.4 g/dL (6.3-8.3)
[2017-04-29 11:50] LABS: CALCIUM 8.8 mg/dl (8.6-10.4); MAGNESIUM 1.6 mg/dL (1.6-2.3)
[2017-04-30] MEDS: Potassium Chloride 20 mEq ER Tab PO SCH (10:27)
[2017-04-30] MEDS: PrednisoLONE 6 MG/2 ML SYR PO SCH (10:27)
[2017-04-30] MEDS: Pantoprazole 40 mg EC Tab PO SCH (10:27)
--- NOTE | 2017-04-30 14:14 | CP.PCM.PN ---
Subjective - Date & Time of Evaluation Date of Evaluation: 04/30/17 Time of Evaluation: 08:40 - Subjective Subjective: clinically same Objective - Vital Signs/Intake and Output Vital Signs (last 24 hours): Temp Pulse Resp BP Pulse Ox 97.9 F 76 20 122/83 99 04/30/17 08:40 04/30/17 08:40 04/30/17 08:40 04/30/17 10:28 04/30/17 08:40 Intake and Output: 04/30/17 04/30/17 06:59 18:59 Intake Total 550 Balance 550 - Medications Medications: Current Medications Furosemide (Lasix) 40 mg IVP DAILY [facility] Last Admin: 04/30/17 10:28 Dose: 40 mg Gabapentin (Neurontin) 400 mg PO TID [facility] Last Admin: 04/30/17 13:51 Dose: 400 mg Haloperidol (Haldol) 5 mg PO Q1H PRN PRN Reason: severe agitation max4x/24h Lactulose (Enulose) 30 gm PO BID [facility] Last Admin: 04/30/17 10:30 Dose: 30 gm Lorazepam (Ativan) 2 mg IVP Q4H PRN PRN Reason: agitation, max 5x/24h Last Admin: 04/26/17 20:24 Dose: 2 mg Ondansetron HCl (Zofran Inj) 4 mg IVP Q6 PRN PRN Reason: Nausea/Vomiting Last Admin: 04/28/17 17:50 Dose: 4 mg Pantoprazole Sodium (Protonix Ec Tab) 40 mg PO DAILY [facility] Last Admin: 04/30/17 10:27 Dose: 40 mg Potassium Chloride (K-Dur 20 Meq Er Tab) 20 meq PO DAILY [facility] Last Admin: 04/30/17 10:27 Dose: 20 meq Prednisolone (Prednisolone) 40 mg PO DAILY [facility] Last Admin: 04/30/17 10:27 Dose: 40 mg Rifaximin (Xifaxan) 550 mg PO TID [facility] Last Admin: 04/30/17 13:51 Dose: 550 mg Spironolactone (Aldactone) 100 mg PO DAILY [facility] Last Admin: 04/30/17 10:28 Dose: 100 mg - Labs Labs: 04/29/17 11:17 04/29/17 11:17 PT 26.8 SECONDS (9.7-12.2) H 08/30/17 07:07 INR 2.3 04/27/17 07:07 APTT 40 SECONDS (21-34) H 04/24/17 13:49 - Constitutional Appears: Well - Head Exam Head Exam: ATRAUMATIC, NORMAL INSPECTION, NORMOCEPHALIC - Eye Exam Eye Exam: EOMI, Normal appearance, PERRL - ENT Exam ENT Exam: Mucous Membranes Moist, Normal Exam - Neck Exam Neck Exam: Full ROM, Normal Inspection. absent: Lymphadenopathy - Respiratory Exam Respiratory Exam: Decreased Breath Sounds - Cardiovascular Exam Cardiovascular Exam: REGULAR RHYTHM, +S1, +S2. absent: Murmur - GI/Abdominal Exam GI & Abdominal Exam: Diminished Bowel Sounds - Rectal Exam Rectal Exam: Deferred Assessment and Plan (1) Hyperbilirubinemia Status: Acute (2) Liver cirrhosis Status: Acute (3) Scalp laceration Status: Acute
[2017-05-01] MEDS: Potassium Chloride 20 mEq ER Tab PO SCH (10:24)
[2017-05-01] MEDS: PrednisoLONE 6 MG/2 ML SYR PO SCH (10:24)
[2017-05-01] MEDS: Pantoprazole 40 mg EC Tab PO SCH (10:24)
--- NOTE | 2017-05-01 13:52 | CP.PCM.PN ---
Subjective - Date & Time of Evaluation Date of Evaluation: 05/01/17 Time of Evaluation: 08:40 - Subjective Subjective: clinically same Objective - Vital Signs/Intake and Output Vital Signs (last 24 hours): Temp Pulse Resp BP Pulse Ox 98.5 F 75 20 132/77 96 05/01/17 08:01 05/01/17 08:01 05/01/17 08:01 05/01/17 10:26 05/01/17 08:01 Intake and Output: 05/01/17 05/01/17 06:59 18:59 Intake Total 180 Balance 180 - Medications Medications: Current Medications Furosemide (Lasix) 40 mg IVP DAILY [facility] Last Admin: 05/01/17 10:26 Dose: 40 mg Gabapentin (Neurontin) 400 mg PO TID [facility] Last Admin: 05/01/17 10:24 Dose: 400 mg Haloperidol (Haldol) 5 mg PO Q1H PRN PRN Reason: severe agitation max4x/24h Lactulose (Enulose) 30 gm PO BID [facility] Last Admin: 05/01/17 10:26 Dose: 30 gm Lorazepam (Ativan) 2 mg IVP Q4H PRN PRN Reason: agitation, max 5x/24h Last Admin: 04/26/17 20:24 Dose: 2 mg Ondansetron HCl (Zofran Inj) 4 mg IVP Q6 PRN PRN Reason: Nausea/Vomiting Last Admin: 04/28/17 17:50 Dose: 4 mg Pantoprazole Sodium (Protonix Ec Tab) 40 mg PO DAILY [facility] Last Admin: 05/01/17 10:24 Dose: 40 mg Potassium Chloride (K-Dur 20 Meq Er Tab) 20 meq PO DAILY [facility] Last Admin: 05/01/17 10:24 Dose: 20 meq Prednisolone (Prednisolone) 40 mg PO DAILY [facility] Last Admin: 05/01/17 10:24 Dose: 40 mg Spironolactone (Aldactone) 100 mg PO DAILY [facility] Last Admin: 05/01/17 10:27 Dose: 100 mg - Labs Labs: 04/29/17 11:17 04/29/17 11:17 PT 26.8 SECONDS (9.7-12.2) H 04/27/17 07:07 INR 2.3 04/27/17 07:07 APTT 40 SECONDS (21-34) H 04/24/17 13:49 - Constitutional Appears: Well - Head Exam Head Exam: ATRAUMATIC, NORMAL INSPECTION, NORMOCEPHALIC - Eye Exam Eye Exam: EOMI, Normal appearance, PERRL - ENT Exam ENT Exam: Mucous Membranes Moist, Normal Exam - Neck Exam Neck Exam: Full ROM, Normal Inspection. absent: Lymphadenopathy - Respiratory Exam Respiratory Exam: Decreased Breath Sounds - Cardiovascular Exam Cardiovascular Exam: REGULAR RHYTHM, +S1, +S2. absent: Murmur - GI/Abdominal Exam GI & Abdominal Exam: Diminished Bowel Sounds - Rectal Exam Rectal Exam: Deferred Assessment and Plan (1) Hyperbilirubinemia Status: Acute (2) Liver cirrhosis Status: Acute (3) Scalp laceration Status: Acute
[2017-05-02] MEDS: Potassium Chloride 20 mEq ER Tab PO SCH (09:40)
[2017-05-02] MEDS: PrednisoLONE 6 MG/2 ML SYR PO SCH (09:41)
[2017-05-02] MEDS: Pantoprazole 40 mg EC Tab PO SCH (09:41)
[2017-05-02 11:13] LABS: ALB/GLOB RATIO 0.5 (1.0-2.1); BILIRUBIN,DIRECT 6.9 mg/dL (0.0-0.4); BILIRUBIN,TOTAL 9.5 mg/dL (0.2-1.3); TOTAL PROTEIN 8.7 g/dL (6.3-8.3)
--- NOTE | 2017-05-02 13:15 | CP.PCM.CON ---
<Sameera Ojeda - Last Filed: 05/02/17 13:17> History of Present Illness - History of Present Illness History of Present Illness: GI Fellow PGY4 Consult Note Fawad Loya is a 46yo male with PMHx significant for EtOH cirrhosis, recent TIA, HTN, HLD who presented to the ED to remove his sutures on his head post fall 1 month ago. The reason for GI consult was for incidental findings of hyperbilirubinemia. Pt was recently seen by our service 1 month ago during his previous hospitalization post fall. He had a triple phase liver CT done at the time and it did not reveal any sig. mass indicating HCC. Pt denies any abd pain. States that his last drink was 2 months ago, but last admission states that he was intoxication upon presentation for fall. Denies any hematemesis, pruritus, jaundice, nausea, vomiting, weight loss. During this admission pt was diagnosed with alcoholic hepatitis and started on steroid therapy. Pt is doing well with no encephalopathy and tolerating a diet. ROS: A 12-point ROS obtained and negative except as above PMHx: See HPI PSHx: Appendectomy FHx: Discussed with patient and denies any significant FHx Social: Prior EtOH abuse (quit end of December following recent admission); Denies tobacco or illicit drug use Endo: No prior endoscopic evaluations Past Patient History - Infectious Disease Hx of Infectious Diseases: None - Past Medical History & Family History Past Medical History?: Yes - Past Social History Smoking Status: Former Smoker - CARDIAC Hx Cardiac Disorders: No - PULMONARY Hx Respiratory Disorders: No - NEUROLOGICAL Hx Neurological Disorder: No - HEENT Hx HEENT Problems: No - RENAL Hx Chronic Kidney Disease: No - ENDOCRINE/METABOLIC Hx Endocrine Disorders: No - HEMATOLOGICAL/ONCOLOGICAL Hx Blood Disorders: Yes Hx AIDS: No Hx Anemia: No Hx Blood Transfusions: No Hx Blood Transfusion Reaction: No Hx Bruising: No Hx Cancer: No Hx Chemotherapy: No Hx Cirrhosis: Yes Hx Gum Bleeding: No Hx Hemophilia: No Hx Hepatitis A: No Hx Hepatitis B: No Hx Hepatitis C: No Hx Human Immunodeficiency Virus (HIV): No Hx Leukemia: No Hx Metastesis: No Hx Shingles: No Hx Sickle Cell Disease: No Hx Unexplained Bleeding: No Hx von Willebrand's Disease: No - INTEGUMENTARY Hx Dermatological Problems: No - MUSCULOSKELETAL/RHEUMATOLOGICAL Hx Falls: Yes - GASTROINTESTINAL Hx Gastrointestinal Disorders: No - GENITOURINARY/GYNECOLOGICAL Hx Genitourinary Disorders: No - PSYCHIATRIC Hx Substance Use: No - SURGICAL HISTORY Hx Surgeries: Yes Hx Abdominal Aortic Aneurysm Repair: No Hx Amputation: No Hx Angiogram: No Hx Angioplasty: No Hx Appendectomy: Yes Hx Arteriovenous Shunt: No Hx Arthroscopy: No Hx Bile Duct Stent: No Hx Breast Biopsy: No Hx Cataract Extraction: No Hx Cardiac Catheterization: No Hx Carotid Endarterectomy: No Hx Section: No Hx Cholecystectomy: No Hx Coronary Artery Bypass Graft: No Hx Coronary Stent: No Hx Dilation and Curettage: No Hx Eye Surgery: No Hx Femoral-Popliteal Bypass Graft: No Hx Gastric Bypass Surgery: No Hx Herniorrhaphy: No Hx Hysterectomy: No Hx Joint Replacement: No Hx Kidney Transplant: No Hx Liver Transplant: No Hx Mastectomy: No Hx Musculoskeletal Surgery: No Hx Open Heart Surgery: No Hx Open Reduction Internal Fixation: No Hx Orthopedic Surgery: No Hx Parathyroidectomy: No Hx Penile Implant: No Hx Pulmonary Surgery: No Hx Splenectomy: No Hx Thyroidectomy: No Hx Tonsillectomy: No Hx Tubal Ligation: No Hx Valve Replacement: No Hx Vascular Surgery: No Hx Vascular Access Device: No - ANESTHESIA Hx Anesthesia: Yes Hx Anesthesia Reactions: No Hx Malignant Hyperthermia: No Has any member of the family had a problem w/ anesthesia?: No Meds Allergies/Adverse Reactions: Allergies Allergy/AdvReac Type Severity Reaction Status Date / Time No Known Allergies Allergy Verified 04/24/17 11:26 - Medications Medications: Current Medications Furosemide (Lasix) 40 mg IVP DAILY [facility] Last Admin: 05/02/17 09:45 Dose: 40 mg Gabapentin (Neurontin) 400 mg PO TID [facility] Last Admin: 05/02/17 09:40 Dose: 400 mg Haloperidol (Haldol) 5 mg PO Q1H PRN PRN Reason: severe agitation max4x/24h Lactulose (Enulose) 30 gm PO BID [facility] Last Admin: 05/02/17 09:38 Dose: 30 gm Lorazepam (Ativan) 2 mg IVP Q4H PRN PRN Reason: agitation, max 5x/24h Last Admin: 04/26/17 20:24 Dose: 2 mg Ondansetron HCl (Zofran Inj) 4 mg IVP Q6 PRN PRN Reason: Nausea/Vomiting Last Admin: 04/28/17 17:50 Dose: 4 mg Pantoprazole Sodium (Protonix Ec Tab) 40 mg PO DAILY [facility] Last Admin: 05/02/17 09:41 Dose: 40 mg Potassium Chloride (K-Dur 20 Meq Er Tab) 20 meq PO DAILY [facility] Last Admin: 05/02/17 09:40 Dose: 20 meq Prednisolone (Prednisolone) 40 mg PO DAILY [facility] Last Admin: 05/02/17 09:41 Dose: 40 mg Rifaximin (Xifaxan) 550 mg PO BID [facility] Last Admin: 05/02/17 09:41 Dose: 550 mg Spironolactone (Aldactone) 100 mg PO DAILY [facility] Last Admin: 05/02/17 09:38 Dose: 100 mg Physical Exam - Constitutional Appears: Non-toxic, No Acute Distress - Head Exam Head Exam: ATRAUMATIC, NORMAL INSPECTION, NORMOCEPHALIC - Eye Exam Eye Exam: EOMI, Normal appearance, PERRL, Scleral icterus Pupil Exam: PERRL - ENT Exam ENT Exam: Mucous Membranes Moist - Neck Exam Neck exam: Positive for: Normal Inspection - Respiratory Exam Respiratory Exam: Clear to Auscultation Bilateral, NORMAL BREATHING PATTERN - Cardiovascular Exam Cardiovascular Exam: RRR, +S1, +S2 - GI/Abdominal Exam GI & Abdominal Exam: Distended, Normal Bowel Sounds, Soft. absent: Tenderness - Rectal Exam Rectal Exam: Deferred - Extremities Exam Extremities exam: Positive for: normal inspection - Back Exam Back exam: NORMAL INSPECTION - Neurological Exam Neurological exam: Alert, Oriented x3 - Psychiatric Exam Psychiatric exam: Normal Affect, Normal Mood - Skin Skin Exam: Dry, Intact, Warm Additional comments: jaundice Results - Vital Signs Recent Vital Signs: Last Vital Signs Temp 98.8 F 05/02/17 07:55 Pulse 71 05/02/17 07:55 Resp 20 05/02/17 07:55 BP 108/66 05/02/17 09:45 Pulse Ox 97 05/02/17 07:55 - Labs Result Diagrams: 04/29/17 11:17 04/29/17 11:17 Labs: Laboratory Results - last 24 hr 05/01/17 05/01/17 05/02/17 16:23 21:15 07:21 POC Glucose (mg/dL) 107 112 H 85 Total Bilirubin Direct Bilirubin AST ALT Alkaline Phosphatase Total Protein Albumin Globulin Albumin/Globulin Ratio 05/02/17 05/02/17 10:43 11:32 POC Glucose (mg/dL) 122 H Total Bilirubin 9.5 H Direct Bilirubin 6.9 H AST 221 H ALT 83 H Alkaline Phosphatase 220 H Total Protein 8.7 H Albumin 2.9 L Globulin 5.8 H Albumin/Globulin Ratio 0.5 L Assessment & Plan - Assessment and Plan (Free Text) Assessment: Edwin is a 46M w/ hx of Cirrohsis 2/2 Etoh who presented to the ED for head suture removal and was found to have hyper bilirubinemia 1. Decompensated ETOH cirrhosis 2. Acute ETOH hepatitis 3. Altered mental status, resolved - hepatic encephalopathy 4. HTN 5. Obesity 6. TIA Plan: - Continue Supportive care - Low sodium diet as tolerated - Continue with prednisolone therapy for treatment duration of 4 weeks followed by slow taper - LFTs downtrending. Autoimmune and hepatitis panels negative. - Continue with diuretic therapy, monitor electrolytes - Continue with lactulose and xifaxan regimen for prevention of HE - ETOH cessation counseling - Triple phase liver CT reviewed, no focal liver lesion identified - Pt will need outpt EGD and colonoscopy - Per GI perspective pt okay for discharge and followup outpt <Carlos Doherty MD - Last Filed: 05/02/17 13:37> Meds - Medications Medications: Current Medications Furosemide (Lasix) 40 mg IVP DAILY [facility] Last Admin: 05/02/17 09:45 Dose: 40 mg Gabapentin (Neurontin) 400 mg PO TID [facility] Last Admin: 05/02/17 09:40 Dose: 400 mg Haloperidol (Haldol) 5 mg PO Q1H PRN PRN Reason: severe agitation max4x/24h Lactulose (Enulose) 30 gm PO BID [facility] Last Admin: 05/02/17 09:38 Dose: 30 gm Lorazepam (Ativan) 2 mg IVP Q4H PRN PRN Reason: agitation, max 5x/24h Last Admin: 04/26/17 20:24 Dose: 2 mg Ondansetron HCl (Zofran Inj) 4 mg IVP Q6 PRN PRN Reason: Nausea/Vomiting Last Admin: 04/28/17 17:50 Dose: 4 mg Pantoprazole Sodium (Protonix Ec Tab) 40 mg PO DAILY [facility] Last Admin: 05/02/17 09:41 Dose: 40 mg Potassium Chloride (K-Dur 20 Meq Er Tab) 20 meq PO DAILY [facility] Last Admin: 05/02/17 09:40 Dose: 20 meq Prednisolone (Prednisolone) 40 mg PO DAILY [facility] Last Admin: 05/02/17 09:41 Dose: 40 mg Rifaximin (Xifaxan) 550 mg PO BID [facility] Last Admin: 05/02/17 09:41 Dose: 550 mg Spironolactone (Aldactone) 100 mg PO DAILY [facility] Last Admin: 05/02/17 09:38 Dose: 100 mg Results - Vital Signs Recent Vital Signs: Last Vital Signs Temp 98.8 F 05/02/17 07:55 Pulse 71 05/02/17 07:55 Resp 20 05/02/17 07:55 BP 108/66 05/02/17 09:45 Pulse Ox 97 05/02/17 07:55 - Labs Result Diagrams: 04/29/17 11:17 04/29/17 11:17 Labs: Laboratory Results - last 24 hr 05/01/17 05/01/17 05/02/17 16:23 21:15 07:21 POC Glucose (mg/dL) 107 112 H 85 Total Bilirubin Direct Bilirubin AST ALT Alkaline Phosphatase Total Protein Albumin Globulin Albumin/Globulin Ratio 05/02/17 05/02/17 10:43 11:32 POC Glucose (mg/dL) 122 H Total Bilirubin 9.5 H Direct Bilirubin 6.9 H AST 221 H ALT 83 H Alkaline Phosphatase 220 H Total Protein 8.7 H Albumin 2.9 L Globulin 5.8 H Albumin/Globulin Ratio 0.5 L Attending/Attestation - Attestation I have personally seen and examined this patient.: Yes I have fully participated in the care of the patient.: Yes I have reviewed all pertinent clinical information: Yes Notes (Text): 05/02/17 13:35 I have seen and examined patient with GI fellow. No acute events overnight, he is seen resting in bed comfortably. He denies abdominal pain, nausea, vomiting , fever/chills. Tolerating PO diet without difficulty. He has adequate bowel movements. No asterixis. On prednisolone po for 4 weeks and then taper for another 4 weeks. Low sodium diet as tolerated Continue with diuretic therapy, monitor electrolytes. Continue with lactulose and xifaxan regimen for prevention of HE. ETOH cessation counseling. Triple phase liver CT reviewed, no focal liver lesion identified - Patient would benefit from elective outpatient endoscopic evaluation following resolution of acute symptoms. No further planned GI intervention, will sign off case. Cleared for discharge with outpatient GI follow up
--- NOTE | 2017-05-02 18:22 | CP.PCM.PN ---
Subjective - Date & Time of Evaluation Date of Evaluation: 05/02/17 Time of Evaluation: 07:40 - Subjective Subjective: clinically same Objective - Vital Signs/Intake and Output Vital Signs (last 24 hours): Temp Pulse Resp BP Pulse Ox 98.9 F 67 20 111/72 98 05/02/17 15:00 05/02/17 15:00 05/02/17 15:00 05/02/17 15:00 05/02/17 15:00 Intake and Output: 05/02/17 05/02/17 06:59 18:59 Intake Total 540 Balance 540 - Medications Medications: Current Medications Furosemide (Lasix) 40 mg IVP DAILY [facility] Last Admin: 05/02/17 09:45 Dose: 40 mg Gabapentin (Neurontin) 400 mg PO TID [facility] Last Admin: 05/02/17 17:34 Dose: 400 mg Haloperidol (Haldol) 5 mg PO Q1H PRN PRN Reason: severe agitation max4x/24h Lactulose (Enulose) 30 gm PO BID [facility] Last Admin: 05/02/17 17:34 Dose: 30 gm Lorazepam (Ativan) 2 mg IVP Q4H PRN PRN Reason: agitation, max 5x/24h Last Admin: 04/26/17 20:24 Dose: 2 mg Ondansetron HCl (Zofran Inj) 4 mg IVP Q6 PRN PRN Reason: Nausea/Vomiting Last Admin: 04/28/17 17:50 Dose: 4 mg Pantoprazole Sodium (Protonix Ec Tab) 40 mg PO DAILY [facility] Last Admin: 05/02/17 09:41 Dose: 40 mg Potassium Chloride (K-Dur 20 Meq Er Tab) 20 meq PO DAILY [facility] Last Admin: 05/02/17 09:40 Dose: 20 meq Prednisolone (Prednisolone) 40 mg PO DAILY [facility] Last Admin: 05/02/17 09:41 Dose: 40 mg Rifaximin (Xifaxan) 550 mg PO BID [facility] Last Admin: 05/02/17 17:34 Dose: 550 mg Spironolactone (Aldactone) 100 mg PO DAILY [facility] Last Admin: 05/02/17 09:38 Dose: 100 mg - Labs Labs: 04/29/17 11:17 04/29/17 11:17 PT 26.8 SECONDS (9.7-12.2) H 04/27/17 07:07 INR 2.3 04/27/17 07:07 APTT 40 SECONDS (21-34) H 04/24/17 13:49 - Constitutional Appears: Well - Head Exam Head Exam: ATRAUMATIC, NORMAL INSPECTION, NORMOCEPHALIC - Eye Exam Eye Exam: EOMI, Normal appearance, PERRL Pupil Exam: NORMAL ACCOMODATION, PERRL - ENT Exam ENT Exam: Mucous Membranes Moist, Normal Exam - Neck Exam Neck Exam: Full ROM, Normal Inspection. absent: Lymphadenopathy - Respiratory Exam Respiratory Exam: Decreased Breath Sounds - Cardiovascular Exam Cardiovascular Exam: REGULAR RHYTHM, +S1, +S2 - GI/Abdominal Exam GI & Abdominal Exam: Soft, Diminished Bowel Sounds - Rectal Exam Rectal Exam: Deferred Assessment and Plan (1) Hyperbilirubinemia Status: Acute (2) Liver cirrhosis Status: Acute (3) Scalp laceration Status: Acute
[2017-05-03 06:44] LABS: HEMATOCRIT 30.2 % (35.0-51.0); MEAN CELL VOLUME 101.2 fL (80.0-94.0); MEAN CORPUSCULAR HEMOGLOBIN 34.2 pg (27.0-31.0); MEAN CORPUSCULAR HGB CONC 33.8 g/dL (33.0-37.0); MEAN PLATELET VOLUME 8.1 fL (7.2-11.7); RED CELL DISTRIBUTION WIDTH 28.6 % (11.5-14.5); WHITE BLOOD COUNT 5.2 K/uL (4.8-10.8)
[2017-05-03 07:43] LABS: CHLORIDE 102 mmol/L (98-107); POTASSIUM 4.2 mmol/L (3.6-5.2); SODIUM 136 mmol/L (132-148)
[2017-05-03 07:46] LABS: ALB/GLOB RATIO 0.4 (1.0-2.1); ALKALINE PHOSPHATASE 158 U/L (38-126); ALT/SGPT 73 U/L (21-72); AST/SGOT 155 U/L (17-59); BILIRUBIN,TOTAL 7.3 mg/dL (0.2-1.3); BLOOD UREA NITROGEN 13 mg/dL (9-20); CALCIUM 8.1 mg/dl (8.6-10.4); CARBON DIOXIDE 24 mmol/L (22-30); GFR AFRICAN-AMERICAN > 60; GLUCOSE,RANDOM 79 mg/dL (75-110); TOTAL PROTEIN 7.2 g/dL (6.3-8.3)
[2017-05-03 08:10] VITALS: BP 115/69
[2017-05-03] MEDS: PrednisoLONE 6 MG/2 ML SYR PO SCH (09:09)
[2017-05-03] MEDS: Potassium Chloride 20 mEq ER Tab PO SCH (09:10)
[2017-05-03] MEDS: Pantoprazole 40 mg EC Tab PO SCH (09:10)
--- NOTE | 2017-05-03 14:22 | CP.PCM.PN ---
Subjective - Date & Time of Evaluation Date of Evaluation: 05/03/17 Time of Evaluation: 07:40 - Subjective Subjective: clinically same Objective - Vital Signs/Intake and Output Vital Signs (last 24 hours): Temp Pulse Resp BP Pulse Ox 97.5 F L 76 20 115/69 97 05/03/17 08:00 05/03/17 08:00 05/03/17 08:00 05/03/17 09:11 05/03/17 08:00 Intake and Output: 05/03/17 05/03/17 06:59 18:59 Intake Total 240 Balance 240 - Medications Medications: Current Medications Furosemide (Lasix) 40 mg IVP DAILY [facility] Last Admin: 05/03/17 09:11 Dose: 40 mg Gabapentin (Neurontin) 400 mg PO TID [facility] Last Admin: 05/03/17 13:39 Dose: 400 mg Haloperidol (Haldol) 5 mg PO Q1H PRN PRN Reason: severe agitation max4x/24h Lactulose (Enulose) 30 gm PO BID [facility] Last Admin: 05/03/17 09:10 Dose: 30 gm Lorazepam (Ativan) 2 mg IVP Q4H PRN PRN Reason: agitation, max 5x/24h Last Admin: 04/26/17 20:24 Dose: 2 mg Ondansetron HCl (Zofran Inj) 4 mg IVP Q6 PRN PRN Reason: Nausea/Vomiting Last Admin: 04/28/17 17:50 Dose: 4 mg Pantoprazole Sodium (Protonix Ec Tab) 40 mg PO DAILY [facility] Last Admin: 05/03/17 09:10 Dose: 40 mg Potassium Chloride (K-Dur 20 Meq Er Tab) 20 meq PO DAILY [facility] Last Admin: 05/03/17 09:10 Dose: 20 meq Prednisolone (Prednisolone) 40 mg PO DAILY [facility] Last Admin: 05/03/17 09:09 Dose: 40 mg Rifaximin (Xifaxan) 550 mg PO BID [facility] Last Admin: 05/03/17 09:09 Dose: 550 mg Spironolactone (Aldactone) 100 mg PO DAILY [facility] Last Admin: 05/03/17 09:09 Dose: 100 mg - Labs Labs: 05/03/17 06:37 05/03/17 06:37 PT 26.8 SECONDS (9.7-12.2) H 08/30/17 07:07 INR 2.3 04/27/17 07:07 APTT 40 SECONDS (21-34) H 04/24/17 13:49 - Constitutional Appears: Well - Head Exam Head Exam: ATRAUMATIC, NORMAL INSPECTION, NORMOCEPHALIC - Eye Exam Eye Exam: EOMI, Normal appearance, PERRL Pupil Exam: NORMAL ACCOMODATION, PERRL - ENT Exam ENT Exam: Mucous Membranes Moist, Normal Exam - Neck Exam Neck Exam: Full ROM, Normal Inspection. absent: Lymphadenopathy - Respiratory Exam Respiratory Exam: Decreased Breath Sounds - Cardiovascular Exam Cardiovascular Exam: REGULAR RHYTHM, +S1, +S2 - GI/Abdominal Exam GI & Abdominal Exam: Soft, Diminished Bowel Sounds - Rectal Exam Rectal Exam: Deferred Assessment and Plan (1) Hyperbilirubinemia Status: Acute (2) Liver cirrhosis Status: Acute (3) Scalp laceration Status: Acute
--- NOTE | 2017-05-03 15:35 | CP.PCM.PN ---
Subjective - Date & Time of Evaluation Date of Evaluation: 05/03/17 Time of Evaluation: 15:35 - Subjective Subjective: Service for Dr. Flores Pt seen and examined at bedside. No acute distress. No events overnight. Pt feeling much better. Sleeping and eating well. No fevers, chills, vomiting, diarrhea, cp, sob. Objective - Vital Signs/Intake and Output Vital Signs (last 24 hours): Temp Pulse Resp BP Pulse Ox 97.5 F L 76 20 115/69 97 05/03/17 08:00 05/03/17 08:00 05/03/17 08:00 05/03/17 09:11 05/03/17 08:00 Intake and Output: 05/03/17 05/03/17 06:59 18:59 Intake Total 740 Output Total 1200 Balance -460 - Medications Medications: Current Medications Furosemide (Lasix) 40 mg IVP DAILY [facility] Last Admin: 05/03/17 09:11 Dose: 40 mg Gabapentin (Neurontin) 400 mg PO TID [facility] Last Admin: 05/03/17 13:39 Dose: 400 mg Haloperidol (Haldol) 5 mg PO Q1H PRN PRN Reason: severe agitation max4x/24h Lactulose (Enulose) 30 gm PO BID [facility] Last Admin: 05/03/17 09:10 Dose: 30 gm Lorazepam (Ativan) 2 mg IVP Q4H PRN PRN Reason: agitation, max 5x/24h Last Admin: 04/26/17 20:24 Dose: 2 mg Ondansetron HCl (Zofran Inj) 4 mg IVP Q6 PRN PRN Reason: Nausea/Vomiting Last Admin: 04/28/17 17:50 Dose: 4 mg Pantoprazole Sodium (Protonix Ec Tab) 40 mg PO DAILY [facility] Last Admin: 05/03/17 09:10 Dose: 40 mg Potassium Chloride (K-Dur 20 Meq Er Tab) 20 meq PO DAILY [facility] Last Admin: 05/03/17 09:10 Dose: 20 meq Prednisolone (Prednisolone) 40 mg PO DAILY [facility] Last Admin: 05/03/17 09:09 Dose: 40 mg Rifaximin (Xifaxan) 550 mg PO BID [facility] Last Admin: 05/03/17 09:09 Dose: 550 mg Spironolactone (Aldactone) 100 mg PO DAILY [facility] Last Admin: 05/03/17 09:09 Dose: 100 mg - Labs Labs: 05/03/17 06:37 05/03/17 06:37 PT 26.8 SECONDS (9.7-12.2) H 04/27/17 07:07 INR 2.3 04/27/17 07:07 APTT 40 SECONDS (21-34) H 04/24/17 13:49 - Constitutional Appears: Non-toxic, No Acute Distress - Head Exam Head Exam: ATRAUMATIC, NORMAL INSPECTION, NORMOCEPHALIC - Eye Exam Eye Exam: EOMI - ENT Exam ENT Exam: Mucous Membranes Moist - Neck Exam Neck Exam: Full ROM, Normal Inspection - Respiratory Exam Respiratory Exam: NORMAL BREATHING PATTERN. absent: Respiratory Distress - Cardiovascular Exam Cardiovascular Exam: +S1, +S2 - GI/Abdominal Exam GI & Abdominal Exam: Soft, Normal Bowel Sounds. absent: Tenderness - Extremities Exam Extremities Exam: Full ROM, Normal Inspection - Neurological Exam Neurological Exam: Alert, Awake, Oriented x3 - Psychiatric Exam Psychiatric exam: Normal Affect, Normal Mood - Skin Skin Exam: Dry, Intact, Normal Color, Warm Assessment and Plan - Assessment and Plan (Free Text) Assessment: This is a 46 yo male with past medical hx of cirrhosis of the liver, TIA, HTN, HLD presenting for head suture removal and found to have hyperbilirubinemia 1. Acute on chronic liver disease 05/03: LFTs downtrending 04/29: AST/ALT Alk P levels increasing. Likely 2/2 liver cirrhosis. Patient completed rifaximin 500 po daily today. -GI consulted. recs appreciated. -EGD should be done as an outpatient -triple phase ct shows extensive varices, lymph nodes, cirrhosis -continue lactulose 30 BID -continue prednisolone 40 PO daily -spironolactone 100 po daily 2. hx of delirium - Psychiatry consult, Dr. Carbajal, help appreciated. -haldol as needed -ativan as needed 3. hx of alcoholism - Psychiatry consult, Dr. Carbajal, help appreciated. -abstinence stressed -lasix 40 daily -gabapentin 400 po tid -zofran -kdur 20 daily 4. GI/DVT ppx -protonix daily -scds -1:1 stopped [address] discussed with [address] Flores.
[2017-05-03 16:24] VITALS: PULSE 60; TEMP 98.5; O2SAT 99
== END 2017-05-03 18:30 | disposition home or self-care (01) | DRG 433 ==
LOC: C.ER 11:18 → C.9OBSV 14:20 → MERGE 17:30 → C.9E 17:30 → OBSVTOIN 17:30 → C.3T 18:37
PROVIDERS: ADMIT Internal Medicine Nephrology; ATTEND Internal Medicine Nephrology
DX: K70.31 Alcoholic cirrhosis of liver with ascites (principal); I85.00 Esophageal varices without bleeding; K70.11 Alcoholic hepatitis with ascites; Z68.42 Body mass index [BMI] 45.0-49.9, adult; I10 Essential (primary) hypertension; E78.5 Hyperlipidemia, unspecified; Z87.891 Personal history of nicotine dependence; E66.01 Morbid (severe) obesity due to excess calories; N28.1 Cyst of kidney, acquired

== ENCOUNTER 2017-08-25 21:44 | Inpatient (IN) | payer MEDICARE, OTHER ==
[2017-08-25 21:44] VITALS: BMI 44.4
[2017-08-25 22:07] LABS: VENOUS BLOOD GAS BASE EXCESS -5.8 mmol/L (0.0-2.0); VENOUS BLOOD GAS PCO2 37 mmHg (40-60); VENOUS BLOOD GAS PO2 27 mm/Hg (30-55); VENOUS BLOOD PH 7.33 (7.32-7.43)
[2017-08-25 22:27] LABS: BASO % 0.6 % (0.0-2.0); EOS # 0.1 K/uL (0.0-0.7); HEMOGLOBIN 11.6 g/dL (12.0-18.0); LYMPH # 1.1 K/uL (1.0-4.3); LYMPH % 34.1 % (20.0-40.0); MEAN CELL VOLUME 87.4 fL (80.0-94.0); MEAN CORPUSCULAR HEMOGLOBIN 29.2 pg (27.0-31.0); MEAN CORPUSCULAR HGB CONC 33.4 g/dL (33.0-37.0); MEAN PLATELET VOLUME 8.1 fL (7.2-11.7); MONO # 0.5 K/uL (0.0-0.8); MONO % 16.3 % (0.0-10.0); NEUT # 1.5 K/uL (1.8-7.0); RBC 3.96 Mil/uL (4.40-5.90); RED CELL DISTRIBUTION WIDTH 20.8 % (11.5-14.5); WHITE BLOOD COUNT 3.2 K/uL (4.8-10.8)
[2017-08-25 22:35] LABS: INR 1.6; PROTHROMBIN TIME 18.1 SECONDS (9.7-12.2)
[2017-08-25 22:47] LABS: ACETAMINOPHEN < 10.0 ug/mL (10.0-30.0); ALB/GLOB RATIO 0.6 (1.0-2.1); ALBUMIN 2.9 g/dL (3.5-5.0); ALT/SGPT 38 U/L (21-72); AST/SGOT 67 U/L (17-59); BLOOD UREA NITROGEN 12 mg/dL (9-20); CALCIUM 7.5 mg/dl (8.6-10.4); GFR AFRICAN-AMERICAN > 60; GFR NON-AFRICAN AMERICAN > 60; LIPASE 111 U/L (23-300); MAGNESIUM 1.1 mg/dL (1.6-2.3); SALICYLATE < 1.0 mg/dL 1
[2017-08-25] MEDS ORDERED: Sodium Chloride 0.9% 1,000 ML IV ONE (22:50)
[2017-08-25] MEDS ORDERED: Magnesium Sulfate 1 gm in D5W 1 GM/100 ML BAG IVPB STA (22:51)
[2017-08-25] MEDS ORDERED: Magnesium Sulfate 1 gm in D5W 1 GM/100 ML BAG IVPB ONE (23:02)
[2017-08-25] MEDS ORDERED: Sodium Chloride 0.9% 1,000 ML ONE (23:02)
[2017-08-25 23:19] LABS: SQUAMOUS EPITHIAL < 1 /hpf (0-5); URINE BILIRUBIN NEGATIVE (NEGATIVE); URINE BLOOD NEGATIVE (NEGATIVE); URINE CLARITY Clear (Clear); URINE COLOR Yellow (YELLOW); URINE GLUCOSE (UA) NORMAL (Normal); URINE LEUKOCYTE ESTERASE NEG Leu/uL (Negative); URINE NITRATE NEGATIVE (NEGATIVE); URINE PROTEIN NEGATIVE (NEGATIVE)
--- NOTE | 2017-08-25 23:26 | CT ---
EXAM: CT Head Without Intravenous Contrast EXAM DATE/TIME: 08/25/2017 10:14 PM CLINICAL HISTORY: 46 years old, male; Signs and symptoms; Altered mental status/memory loss; Additional info: AMS TECHNIQUE: Axial computed tomography images of the head/brain without intravenous contrast. All CT scans at this facility use one or more dose reduction techniques, viz.: automated exposure control; ma/kV adjustment per patient size (including targeted exams where dose is matched to indication; i.e. head); or iterative reconstruction technique. COMPARISON: Prior head CT of 2016-01-20 FINDINGS: LIMITATIONS: Asymmetric positioning of the patient's head in the CT gantry. BRAIN: Diffuse, age-related cortical atrophy and ventriculomegaly. No other significant abnormality identified. No acute hemorrhage seen within the brain. No acute extra-axial fluid collections visualized. No evidence of significant mass effect within the brain. No CT findings to suggest an acute, large territorial infarct, however, small or early acute infarcts may not be visible on CT. VENTRICLES: See above. BONES/JOINTS: No acute fractures or other acute bony abnormality noted. SOFT TISSUES: No acute abnormality of the visualized soft tissues is seen. SINUSES: Visualized paranasal sinuses appear clear. MASTOID AIR CELLS: Mastoid air cells appear clear. IMPRESSION: - No acute findings seen within the brain. - See above for remaining findings.
[2017-08-25 23:31] LABS: BARBITURATES, UR NEGATIVE (NEGATIVE); BENZODIAZEPINES, UR NEGATIVE (NEGATIVE); OPIATES, UR NEGATIVE (NEGATIVE); PHENCYCLIDINE, UR NEGATIVE (NEGATIVE)
--- NOTE | 2017-08-25 23:42 | C.PDOC ---
Time Seen by Provider: 08/25/17 21:56 Chief Complaint (Nursing): Altered Mental Status History Per: EMS History/Exam Limitations: Clinical Condition Onset/Duration Of Symptoms: Hrs (Last know well around noon today) Onset Of Symptoms: Cannot Confirm Onset Current Symptoms Are (Timing): Still Present Usual Baseline: Alert Oriented Exacerbating Factor(s): Liver Disease Severity: Severe Additional History Per: Prior Records Associated Symptoms: Confused, Other (Lethargic) Past Medical History Reviewed: Historical Data, Nursing Documentation, Vital Signs Vital Signs: Last Vital Signs Temp 98 F 08/25/17 23:12 Pulse 78 08/25/17 23:12 Resp 14 08/25/17 23:12 BP 105/50 L 08/25/17 23:12 Pulse Ox 100 08/25/17 23:54 - Medical History PMH: Anxiety, Arthritis (BACK,KNEES), Asthma, Bipolar Disorder, CHF, COPD ( ASTHMA), Depression, HTN, Schizophrenia Other PMH: Liver Cirrhosis Surgical History: Appendectomy - [facility] Procedures FLUOROSCOPY OF RIGHT JUGULAR VEINS, GUIDANCE (11/14/15) INSERT INFUSION DEV IN R INT JUGULAR VEIN, PERC (11/14/15) INTRODUCTION OF SERUM/TOX/VACCINE INTO MUSCLE, PERC APPROACH (05/28/17) REMOVAL OF INFUSION DEVICE FROM UPPER VEIN, PESTICIDE APPLICATOR APPROACH (11/14/15) Family History: States: Unknown Family Hx - Social History Hx Tobacco Use: No Hx Alcohol Use: Yes Hx Substance Use: No - Immunization History Hx Tetanus Toxoid Vaccination: No Hx Influenza Vaccination: Yes Hx Pneumococcal Vaccination: No Review Of Systems Review Of Systems: ROS cannot be obtained secondary to pt's inabilty to answer questions. Physical Exam - Physical Exam Appears: Other (Lethargic. Only responsive to deep painful stimuli) Skin: Dry Head: Atraumatic Eye(s): bilateral: PERRL Neck: Normal ROM, No Midline Cervical Tenderness, No Step Off Deformity, Supple Cardiovascular: Rhythm Regular Respiratory: Normal Breath Sounds, No Accessory Muscle Use Gastrointestinal/Abdominal: Soft Extremity: Normal ROM, Pedal Edema Neurological/Psych: No Response To Commands, Other (Moving all extremities) Pain Response: Withdraws With Pain ED Course And Treatment - Laboratory Results Result Diagrams: 08/25/17 22:20 08/25/17 22:20 Lab Interpretation: Abnormal Interpretation Of Abnormal: Very elevated ammonia level ECG: Interpreted By Me, Viewed By Me ECG Rhythm: Sinus Rhythm (with PACs), Nonspecific Changes ECG Interpretation: Abnormal Rate From EC O2 Sat by Pulse Oximetry: 100 Pulse Ox Interpretation: Normal - Radiology CXR: Interpreted by Me, Viewed By Me CXR Interpretation: Yes: No Acute Disease - CT Scan/US CT head Other Rad Studies (CT/US): Read By Radiologist, Radiology Report Reviewed CT/US Interpretation: IMPRESSION: - No acute findings seen within the brain. - See above for remaining findings. Progress Note: NG tube was inserted throught the right nare by me and confirmed on chest x-ray. Lactulose ordered. Progress - Interventions Interventions:: Observation, Intravenous fluid - Medications Administered Intravenous: Other (Mg) - Data Reviewed Data Reviewed: Lab, Diagnostic imaging, EKG, Old records - Critical Care Citical Care: Excluding Proc Time Critical Care Time: 60 minutes - Continuity of Care Discussed patient case with:: ED Nurse, On-call PMD-pt unassigned Discussed pt. case with testing consultant/specialty: Pulmonary/Crit. Care - Patient Plan Patient Plan: Admission, ICU Disposition Discussed With DrAlisia: Jerald Guillen Comment: He evaluated pt in the ED and accepted on hospitalist service. Doctor Will See Patient In The: ED - Disposition Disposition: HOSPITALIZED Disposition Time: 23:49 Condition: CRITICAL - Clinical Impression Clinical Impression: Hepatic coma Procedures - Feeding Tube Replacement Type of Tube: nasogastric Insertion Site Prior to Procedure: clean Slovak Tube Size (F): 16 Verification of Placement: auscultation, other (CXR) Patient Tolerated Procedure: no complications
--- NOTE | 2017-08-26 00:33 | CP.PCM.CON ---
History of Present Illness - History of Present Illness History of Present Illness: 46 y/o male with h/o cirrhosis,HTN,CHF,COPD,schizophrenia ,depression brought in with altered mental status.In ER responded to deep pain .labs with elevated ammonia level.No further history available meds brought by EMS -omeprazole,metolazone and cilostazol Review of Systems - Review of Systems Review of Systems: unable to get history from patient Past Patient History - Infectious Disease Hx of Infectious Diseases: None - Tetanus Immunizations Tetanus Immunization: Unknown - Past Medical History & Family History Past Medical History?: Yes - Past Social History Smoking Status: Smoker Currrent Status Unknown - CARDIAC Hx Congestive Heart Failure: Yes Hx Hypertension: Yes - PULMONARY Hx Asthma: Yes Hx Chronic Obstructive Pulmonary Disease (COPD): Yes (ASTHMA) - NEUROLOGICAL Hx Neurological Disorder: No - HEENT Hx HEENT Problems: No - RENAL Hx Chronic Kidney Disease: No - ENDOCRINE/METABOLIC Hx Endocrine Disorders: No - HEMATOLOGICAL/ONCOLOGICAL Hx Blood Disorders: No - INTEGUMENTARY Hx Dermatological Problems: No - MUSCULOSKELETAL/RHEUMATOLOGICAL Hx Arthritis: Yes (BACK,KNEES) - GASTROINTESTINAL Hx Gastrointestinal Disorders: No - GENITOURINARY/GYNECOLOGICAL Hx Genitourinary Disorders: No - PSYCHIATRIC Hx Anxiety: Yes Hx Bipolar Disorder: Yes Hx Depression: Yes Hx Schizophrenia: Yes Hx Substance Use: No - SURGICAL HISTORY Hx Appendectomy: Yes - ANESTHESIA Hx Anesthesia: Yes Hx Anesthesia Reactions: No Hx Malignant Hyperthermia: No Meds Allergies/Adverse Reactions: Allergies Allergy/AdvReac Type Severity Reaction Status Date / Time No Known Allergies Allergy Verified 05/28/17 11:04 Physical Exam - Constitutional Appears: No Acute Distress Additional comments: responds to deep pain by partial opening of eyes - Head Exam Head Exam: ATRAUMATIC, NORMAL INSPECTION, NORMOCEPHALIC - Eye Exam Eye Exam: Normal appearance, PERRL. absent: Conjunctival injection, Scleral icterus - ENT Exam ENT Exam: Mucous Membranes Dry, Normal Exam Additional comments: NGT + - Neck Exam Neck exam: Positive for: Normal Inspection - Respiratory Exam Respiratory Exam: Clear to Auscultation Bilateral, NORMAL BREATHING PATTERN - Cardiovascular Exam Cardiovascular Exam: REGULAR RHYTHM. absent: JVD - GI/Abdominal Exam GI & Abdominal Exam: Normal Bowel Sounds, Soft - Extremities Exam Extremities exam: Positive for: pedal edema Additional comments: bilateral leg swelling with hyperpigmented skin,chronic changes - Neurological Exam Neurological exam: Altered - Skin Skin Exam: Dry, Intact, Warm Results - Vital Signs Recent Vital Signs: Last Vital Signs Temp 98 F 08/26/17 00:20 Pulse 69 08/26/17 00:20 Resp 14 08/26/17 00:20 BP 96/46 L 08/26/17 00:20 Pulse Ox 100 08/26/17 00:20 - Labs Result Diagrams: 08/25/17 22:20 08/25/17 22:20 Labs: Laboratory Results - last 24 hr 08/25/17 08/25/17 08/25/17 22:00 22:20 22:20 WBC 3.2 L RBC 3.96 L Hgb 11.6 L Hct 34.6 L MCV 87.4 MCH 29.2 MCHC 33.4 RDW 20.8 H Plt Count 146 MPV 8.1 Neut % (Auto) 47.0 L Lymph % (Auto) 34.1 [place] % (Auto) 16.3 H Eos % (Auto) 2.0 Baso % (Auto) 0.6 Neut # 1.5 L Lymph # 1.1 [place] # 0.5 Eos # 0.1 Baso # 0.0 PT 18.1 H INR 1.6 APTT 31 pO2 27 L VBG pH 7.33 VBG pCO2 37 L VBG HCO3 19.0 VBG Total CO2 20.6 L VBG O2 Sat (Calc) 52.7 VBG Base Excess -5.8 L VBG Potassium 3.9 Sodium 138.0 Chloride 108.0 H Glucose 114 H Lactate 2.7 H Potassium Carbon Dioxide Anion Gap BUN Creatinine Est GFR ( Amer) Est GFR (Non-Af Amer) Random Glucose Serum Osmolality Calcium Magnesium Total Bilirubin AST ALT Alkaline Phosphatase Ammonia Troponin I Total Protein Albumin Globulin Albumin/Globulin Ratio Lipase Venous Blood Potassium 3.9 Urine Color Urine Clarity Urine pH Ur Specific [place] Urine Protein Urine Glucose (UA) Urine Ketones Urine Blood Urine Nitrate Urine Bilirubin Urine Urobilinogen Ur Leukocyte Esterase Urine WBC (Auto) Ur Squamous Epith Cells Salicylates Urine Opiates Screen Urine Methadone Screen Acetaminophen Ur Barbiturates Screen Ur Phencyclidine Scrn Ur Amphetamines Screen U Benzodiazepines Scrn U Oth Cocaine Metabols U Cannabinoids Screen Alcohol, Quantitative 08/25/17 08/25/17 08/25/17 22:20 22:20 22:20 WBC RBC Hgb Hct MCV MCH MCHC RDW Plt Count MPV Neut % (Auto) Lymph % (Auto) [place] % (Auto) Eos % (Auto) Baso % (Auto) Neut # Lymph # [place] # Eos # Baso # PT INR APTT pO2 VBG pH VBG pCO2 VBG HCO3 VBG Total CO2 VBG O2 Sat (Calc) VBG Base Excess VBG Potassium Sodium 130 L Chloride 105 Glucose Lactate Potassium 4.1 Carbon Dioxide 18 L Anion Gap 11 BUN 12 Creatinine 0.9 Est GFR ( Amer) > 60 Est GFR (Non-Af Amer) > 60 Random Glucose 119 H Serum Osmolality Calcium 7.5 L Magnesium 1.1 L Total Bilirubin 2.1 H AST 67 H ALT 38 Alkaline Phosphatase 122 Ammonia 257 H D Troponin I 0.0230 Total Protein 7.7 Albumin 2.9 L Globulin 4.8 H Albumin/Globulin Ratio 0.6 L Lipase 111 Venous Blood Potassium Urine Color Urine Clarity Urine pH Ur Specific [place] Urine Protein Urine Glucose (UA) Urine Ketones Urine Blood Urine Nitrate Urine Bilirubin Urine Urobilinogen Ur Leukocyte Esterase Urine WBC (Auto) Ur Squamous Epith Cells Salicylates < 1.0 Urine Opiates Screen Urine Methadone Screen Acetaminophen < 10.0 L Ur Barbiturates Screen Ur Phencyclidine Scrn Ur Amphetamines Screen U Benzodiazepines Scrn U Oth Cocaine Metabols U Cannabinoids Screen Alcohol, Quantitative < 10 08/25/17 08/25/17 08/25/17 22:20 23:11 23:11 WBC RBC Hgb Hct MCV MCH MCHC RDW Plt Count MPV Neut % (Auto) Lymph % (Auto) [place] % (Auto) Eos % (Auto) Baso % (Auto) Neut # Lymph # [place] # Eos # Baso # PT INR APTT pO2 VBG pH VBG pCO2 VBG HCO3 VBG Total CO2 VBG O2 Sat (Calc) VBG Base Excess VBG Potassium Sodium Chloride Glucose Lactate Potassium Carbon Dioxide Anion Gap BUN Creatinine Est GFR ( Amer) Est GFR (Non-Af Amer) Random Glucose Serum Osmolality 285 Calcium Magnesium Total Bilirubin AST ALT Alkaline Phosphatase Ammonia Troponin I Total Protein Albumin Globulin Albumin/Globulin Ratio Lipase Venous Blood Potassium Urine Color Yellow Urine Clarity Clear Urine pH 6.0 Ur Specific [place] 1.015 Urine Protein Negative Urine Glucose (UA) Normal Urine Ketones Trace Urine Blood Negative Urine Nitrate Negative Urine Bilirubin Negative Urine Urobilinogen 2.0 Ur Leukocyte Esterase Neg Urine WBC (Auto) 1 Ur Squamous Epith Cells < 1 Salicylates Urine Opiates Screen Negative Urine Methadone Screen Negative Acetaminophen Ur Barbiturates Screen Negative Ur Phencyclidine Scrn Negative Ur Amphetamines Screen Negative U Benzodiazepines Scrn Negative U Oth Cocaine Metabols Negative U Cannabinoids Screen Negative Alcohol, Quantitative - EKG Data EKG Interpreted by: Myself - Imaging and Cardiology CT scan - head Status: Image reviewed by me, Report reviewed by me Chest x-ray Status: Image reviewed by me Assessment & Plan - Assessment and Plan (Free Text) Assessment: 1.Hepatic Encephalopathy lactulose monitor ammonia level ,clinically 2.Hypomagnesemia/hyponatremia- 1gm magnesium given in ER 3.Leucopenia,anemia f/u with rpt labs 4.H/o HTN,CHF Bp stable 5.COPD bronchodilators PRN 6.h/o schizophernia,depression GI/DVT prophylaxis
--- NOTE | 2017-08-26 05:08 | CP.PCM.HP ---
History of Present Illness - History of Present Illness History of Present Illness: Medicine H/P CC: AMS HPI: Patient is a 46M w/ PMH Cirrhosis, HTN, CHF, COPD, schizophrenia, depression brought in by EMS for AMS. Patient is only responsive to deep painful stimuli in ED. Labs in ED show an elevated ammonia level. The remainder of the history was unable to attain. EMS brought in the following medications: Omeprazole, metolazone and cilostazol. NGT was inserted in ED. Zofran and lactulose given. Seemed to open eyes and cough as exam progressed. ICU attending notified. Will go to ICU for closer monitoring for fear of aspiration. Protecting airway in ED. ROS: unattainable PMH: as above PSH: unattainable FH: unattainable SH: unattainable Meds: As above All: unattainable Present on Admission - Present on Admission Any Indicators Present on Admission: No Review of Systems - Review of Systems Review of Systems: per hpi Past Patient History - Infectious Disease Hx of Infectious Diseases: None - Tetanus Immunizations Tetanus Immunization: Unknown - Past Medical History & Family History Past Medical History?: Yes - Past Social History Smoking Status: Former Smoker - CARDIAC Hx Cardiac Disorders: Yes Hx Congestive Heart Failure: Yes Hx Hypertension: Yes - PULMONARY Hx Respiratory Disorders: Yes Hx Asthma: Yes Hx Chronic Obstructive Pulmonary Disease (COPD): Yes (ASTHMA) - NEUROLOGICAL Hx Neurological Disorder: No - HEENT Hx HEENT Problems: No - RENAL Hx Chronic Kidney Disease: No - ENDOCRINE/METABOLIC Hx Endocrine Disorders: No - HEMATOLOGICAL/ONCOLOGICAL Hx Blood Disorders: Yes Hx Cirrhosis: Yes - INTEGUMENTARY Hx Dermatological Problems: No - MUSCULOSKELETAL/RHEUMATOLOGICAL Hx Musculoskeletal Disorders: Yes Hx Arthritis: Yes Hx Falls: No - GASTROINTESTINAL Hx Gastrointestinal Disorders: No - GENITOURINARY/GYNECOLOGICAL Hx Genitourinary Disorders: No - PSYCHIATRIC Hx Psychophysiologic Disorder: Yes Hx Anxiety: Yes Hx Bipolar Disorder: Yes Hx Depression: Yes Hx Schizophrenia: Yes Hx Substance Use: No - SURGICAL HISTORY Hx Surgeries: Yes Hx Appendectomy: Yes - ANESTHESIA Hx Anesthesia: Yes Hx Anesthesia Reactions: No Hx Malignant Hyperthermia: No Meds Allergies/Adverse Reactions: Allergies Allergy/AdvReac Type Severity Reaction Status Date / Time No Known Allergies Allergy Verified 05/28/17 11:04 Physical Exam - Constitutional Additional comments: comatose, only responds to painful stimuli - Head Exam Head Exam: ATRAUMATIC, NORMAL INSPECTION, NORMOCEPHALIC - Eye Exam Eye Exam: PERRL Pupil Exam: PERRL - ENT Exam ENT Exam: Mucous Membranes Dry - Neck Exam Additional comments: NGT - Respiratory Exam Respiratory Exam: Clear to Auscultation Bilateral, NORMAL BREATHING PATTERN - Cardiovascular Exam Cardiovascular Exam: REGULAR RHYTHM - GI/Abdominal Exam GI & Abdominal Exam: Normal Bowel Sounds, Soft. absent: Distended, Tenderness Additional comments: surgical scar in LLQ - Extremities Exam Additional comments: 3+ pitting edema b/l, poor skin turgor - Neurological Exam Additional comments: only responds to deep painful stimuli - Expanded Neurological Exam Expanded Neurological exam: Protecting the Airway Cranial nerves: Gag Reflex: Normal Upper motor neuron: Babinski Sign: Normal Coma Scale Eye Opening: To Pain Coma Scale Motor Response: Withdraws to Pain Coma Scale Verbal: None Coma Scale Total: 7 - Psychiatric Exam Additional comments: only responds to deep painful stimuli - Skin Skin Exam: Dry Additional comments: poor skin turgor Results - Vital Signs Recent Vital Signs: Last Vital Signs Temp 97.7 F 08/26/17 01:09 Pulse 69 08/26/17 02:03 Resp 13 08/26/17 02:03 BP 139/67 08/26/17 02:03 Pulse Ox 100 08/26/17 02:03 - Labs Result Diagrams: 08/25/17 22:20 08/25/17 22:20 Labs: Laboratory Results - last 24 hr 08/25/17 08/25/17 08/25/17 22:00 22:20 22:20 WBC 3.2 L RBC 3.96 L Hgb 11.6 L Hct 34.6 L MCV 87.4 MCH 29.2 MCHC 33.4 RDW 20.8 H Plt Count 146 MPV 8.1 Neut % (Auto) 47.0 L Lymph % (Auto) 34.1 [place] % (Auto) 16.3 H Eos % (Auto) 2.0 Baso % (Auto) 0.6 Neut # 1.5 L Lymph # 1.1 [place] # 0.5 Eos # 0.1 Baso # 0.0 PT 18.1 H INR 1.6 APTT 31 pO2 27 L VBG pH 7.33 VBG pCO2 37 L VBG HCO3 19.0 VBG Total CO2 20.6 L VBG O2 Sat (Calc) 52.7 VBG Base Excess -5.8 L VBG Potassium 3.9 Sodium 138.0 Chloride 108.0 H Glucose 114 H Lactate 2.7 H Potassium Carbon Dioxide Anion Gap BUN Creatinine Est GFR ( Amer) Est GFR (Non-Af Amer) Random Glucose Serum Osmolality Calcium Magnesium Total Bilirubin AST ALT Alkaline Phosphatase Ammonia Troponin I Total Protein Albumin Globulin Albumin/Globulin Ratio Lipase Venous Blood Potassium 3.9 Urine Color Urine Clarity Urine pH Ur Specific [place] Urine Protein Urine Glucose (UA) Urine Ketones Urine Blood Urine Nitrate Urine Bilirubin Urine Urobilinogen Ur Leukocyte Esterase Urine WBC (Auto) Ur Squamous Epith Cells Salicylates Urine Opiates Screen Urine Methadone Screen Acetaminophen Ur Barbiturates Screen Ur Phencyclidine Scrn Ur Amphetamines Screen U Benzodiazepines Scrn U Oth Cocaine Metabols U Cannabinoids Screen Alcohol, Quantitative 08/25/17 08/25/17 08/25/17 22:20 22:20 22:20 WBC RBC Hgb Hct MCV MCH MCHC RDW Plt Count MPV Neut % (Auto) Lymph % (Auto) [place] % (Auto) Eos % (Auto) Baso % (Auto) Neut # Lymph # [place] # Eos # Baso # PT INR APTT pO2 VBG pH VBG pCO2 VBG HCO3 VBG Total CO2 VBG O2 Sat (Calc) VBG Base Excess VBG Potassium Sodium 130 L Chloride 105 Glucose Lactate Potassium 4.1 Carbon Dioxide 18 L Anion Gap 11 BUN 12 Creatinine 0.9 Est GFR ( Amer) > 60 Est GFR (Non-Af Amer) > 60 Random Glucose 119 H Serum Osmolality Calcium 7.5 L Magnesium 1.1 L Total Bilirubin 2.1 H AST 67 H ALT 38 Alkaline Phosphatase 122 Ammonia 257 H D Troponin I 0.0230 Total Protein 7.7 Albumin 2.9 L Globulin 4.8 H Albumin/Globulin Ratio 0.6 L Lipase 111 Venous Blood Potassium Urine Color Urine Clarity Urine pH Ur Specific [place] Urine Protein Urine Glucose (UA) Urine Ketones Urine Blood Urine Nitrate Urine Bilirubin Urine Urobilinogen Ur Leukocyte Esterase Urine WBC (Auto) Ur Squamous Epith Cells Salicylates < 1.0 Urine Opiates Screen Urine Methadone Screen Acetaminophen < 10.0 L Ur Barbiturates Screen Ur Phencyclidine Scrn Ur Amphetamines Screen U Benzodiazepines Scrn U Oth Cocaine Metabols U Cannabinoids Screen Alcohol, Quantitative < 10 08/25/17 08/25/1708/25/17 22:20 23:11 23:11 WBC RBC Hgb Hct MCV MCH MCHC RDW Plt Count MPV Neut % (Auto) Lymph % (Auto) [place] % (Auto) Eos % (Auto) Baso % (Auto) Neut # Lymph # [place] # Eos # Baso # PT INR APTT pO2 VBG pH VBG pCO2 VBG HCO3 VBG Total CO2 VBG O2 Sat (Calc) VBG Base Excess VBG Potassium Sodium Chloride Glucose Lactate Potassium Carbon Dioxide Anion Gap BUN Creatinine Est GFR ( Amer) Est GFR (Non-Af Amer) Random Glucose Serum Osmolality 285 Calcium Magnesium Total Bilirubin AST ALT Alkaline Phosphatase Ammonia Troponin I Total Protein Albumin Globulin Albumin/Globulin Ratio Lipase Venous Blood Potassium Urine Color Yellow Urine Clarity Clear Urine pH 6.0 Ur Specific [place] 1.015 Urine Protein Negative Urine Glucose (UA) Normal Urine Ketones Trace Urine Blood Negative Urine Nitrate Negative Urine Bilirubin Negative Urine Urobilinogen 2.0 Ur Leukocyte Esterase Neg Urine WBC (Auto) 1 Ur Squamous Epith Cells < 1 Salicylates Urine Opiates Screen Negative Urine Methadone Screen Negative Acetaminophen Ur Barbiturates Screen Negative Ur Phencyclidine Scrn Negative Ur Amphetamines Screen Negative U Benzodiazepines Scrn Negative U Oth Cocaine Metabols Negative U Cannabinoids Screen Negative Alcohol, Quantitative Assessment & Plan (1) Hepatic coma Assessment and Plan: protecting airway in ED elevated ammonia ICU consult lactulose 20 in ED Lactulose 30 PO Q6 Mg sulfate 1g IV once NPO Zofran 4 IV once in ED to prevent aspiration Zofran 4 IV Q6 NS 1L bolus given in ED aspiration precautions Status: Acute Priority: High (2) Diabetes mellitus Assessment and Plan: A1C ACHS ISS High Status: Chronic Priority: Medium (3) Prophylactic measure Assessment and Plan: pepcid 20 IV Q12 Protonix 40 IV Once Heparin SC Q8 Status: Acute Priority: Medium
[2017-08-26] MEDS ORDERED: (Novolin R) Insulin Human Regular 100 units/ml vial SC SCH ×2 (06:00→07:30)
[2017-08-26] MEDS ORDERED: Magnesium Sulfate 1 gm in D5W 1 GM/100 ML BAG IVPB ONE (06:59)
--- NOTE | 2017-08-26 07:09 | CP.PCM.PN ---
Subjective - Date & Time of Evaluation Date of Evaluation: 08/26/17 Time of Evaluation: 07:06 - Subjective Subjective: Assessment Hepatic encephalopathy, and coma with ammonia level 257 Alcoholic cirrhosis ? precipitation, ? non compliance H/o schizophrenia, bipolar H/o HTN Obese Low mag Plan NG placement Seizure, aspiration precautions GI DVT prophylaxis Lactulose 20g q2 hr till bm, continue xifaxan Admitted to ICU Replace electrolytes, mag. Objective - Vital Signs/Intake and Output Vital Signs (last 24 hours): Temp Pulse Resp BP Pulse Ox 97.7 F 79 10 L 145/72 100 08/26/17 01:09 08/26/17 05:03 08/26/17 05:03 08/26/17 05:03 08/26/17 05:03 Intake and Output: 08/26/17 08/26/17 06:59 18:59 Intake Total 1100 Output Total 1430 Balance -330 - Medications Medications: Current Medications Aspirin (Aspirin Chewable) 81 mg PO DAILY [facility] Cilostazol (Pletal) 100 mg PO BID [facility] Famotidine (Pepcid) 20 mg IVP Q12 [facility] Folic Acid (Folic Acid) 1 mg PO DAILY [facility] Furosemide (Lasix) 40 mg PO DAILY [facility] Heparin Sodium (Porcine) (Heparin) 5,000 units SC Q8 [facility] Last Admin: 08/26/17 06:12 Dose: 5,000 units Home Med (Lurasidone Hcl [Latuda]) 40 mg PO HS [facility] Home Med (Midodrine [Proamatine]) 5 mg PO TID [facility] Home Med (Omeprazole [Omeprazole]) 40 mg PO DAILY [facility] Magnesium Sulfate/Dextrose (Magnesium Sulfate 1 Gm/100 Ml D5w) 1 gm in 100 mls @ 200 mls/hr IVPB ONCE ONE Stop: 08/26/17 07:28 Lactulose (Enulose) 30 gm PO Q6H [facility] Last Admin: 08/26/17 01:00 Dose: Not Given Ondansetron HCl (Zofran Inj) 4 mg IVP Q6H PRN PRN Reason: Nausea/Vomiting Rifaximin (Xifaxan) 550 mg PO BID [facility] Spironolactone (Aldactone) 100 mg PO DAILY [facility] Thiamine HCl (Vitamin B1 Tab) 100 mg PO DAILY [facility] - Labs Labs: 08/25/17 22:20 08/25/17 22:20 PT 18.1 SECONDS (9.7-12.2) H 08/25/17 22:20 INR 1.6 08/25/17 22:20 APTT 31 SECONDS (21-34) 08/25/17 22:20
[2017-08-26 07:18] LABS: BASO # 0.1 K/uL (0.0-0.2); BASO % 1.8 % (0.0-2.0); EOS # 0.1 K/uL (0.0-0.7); HEMOGLOBIN 10.5 g/dL (12.0-18.0); LYMPH # 1.2 K/uL (1.0-4.3); LYMPH % 34.4 % (20.0-40.0); MEAN CELL VOLUME 86.7 fL (80.0-94.0); MEAN CORPUSCULAR HEMOGLOBIN 29.4 pg (27.0-31.0); MEAN CORPUSCULAR HGB CONC 33.9 g/dL (33.0-37.0); MEAN PLATELET VOLUME 7.9 fL (7.2-11.7); MONO # 0.4 K/uL (0.0-0.8); MONO % 12.8 % (0.0-10.0); NEUT # 1.6 K/uL (1.8-7.0); NRBC % 0.1 % (0.0-2.0); RBC 3.58 Mil/uL (4.40-5.90); RED CELL DISTRIBUTION WIDTH 19.8 % (11.5-14.5); WHITE BLOOD COUNT 3.5 K/uL (4.8-10.8)
[2017-08-26 07:22] LABS: IRON 36 ug/dL (49-181)
[2017-08-26 07:32] LABS: TOTAL IRON BINDING CAPACITY 292 ug/dL (250-450)
[2017-08-26 07:40] LABS: % IRON SATURATION 12 (20-55)
[2017-08-26 07:57] LABS: ALB/GLOB RATIO 0.6 (1.0-2.1); ALBUMIN 2.9 g/dL (3.5-5.0); ALT/SGPT 39 U/L (21-72); AST/SGOT 63 U/L (17-59); BLOOD UREA NITROGEN 10 mg/dL (9-20); CALCIUM 8.3 mg/dl (8.6-10.4); GFR AFRICAN-AMERICAN > 60; GFR NON-AFRICAN AMERICAN > 60; MAGNESIUM 1.5 mg/dL (1.6-2.3)
--- NOTE | 2017-08-26 08:27 | RAD ---
HISTORY: r/o infiltrate bed 6 COMPARISON: 08/25/2017 FINDINGS: LUNGS: No active pulmonary disease. PLEURA: No significant pleural effusion identified, no pneumothorax apparent. CARDIOVASCULAR: Normal heart size. Nasogastric tube extends to left side of abdomen. OSSEOUS STRUCTURES: No significant abnormalities. VISUALIZED UPPER ABDOMEN: Normal. OTHER FINDINGS: None. IMPRESSION: No active disease.
--- NOTE | 2017-08-26 08:34 | RAD ---
HISTORY: AMS COMPARISON: 02/07/2017 FINDINGS: LUNGS: No active pulmonary disease. PLEURA: No significant pleural effusion identified, no pneumothorax apparent. CARDIOVASCULAR: Normal. OSSEOUS STRUCTURES: No significant abnormalities. VISUALIZED UPPER ABDOMEN: Normal. OTHER FINDINGS: None. IMPRESSION: No active disease.
[2017-08-26 08:45] LABS: FOLATE 14.5 ng/mL
[2017-08-26] MEDS ORDERED: Pantoprazole 40 mg EC Tab PO SCH (10:00)
[2017-08-26] MEDS: Cilostazol 100 mg Tab UD PO SCH ×2 (10:35→18:00)
--- NOTE | 2017-08-26 10:52 | CP.PCM.PN ---
Subjective - Date & Time of Evaluation Date of Evaluation: 08/26/17 Time of Evaluation: 10:30 - Subjective Subjective: Hospitalist Progress Note Patient was seen and examined at 10:30 AM 08/26/17 ICU Bed 10 46 year old male (PMHx Hepatic Cirrhosis, Alcohol Abuse, HTN, HLD, Hyperbilirubinemia, Schizophrenia, PVD) who was brought into [facility] earlier this morning via EMS from a retirement for AMS. He has had multiple admissions to this institutions. He was found to have elevated Ammonia level. CT Head was unremarkable. Currently ROS is not possible as patient is only responsive to painful stimuli ( sternal rub). He will briefly open his eyes but not follow commands or respond to questioning in Faroese or Kyrgyz and then go back to sleep. Exam: HEENT: NCA, Pupils are equal and reactive to light, NO cervical lymphadenopathy , NO thyromegaly, Moist Mucous Membranes Cardio: NS1 and NS2, NO M/R/G Resp: CTA B/L, NO R/R/W (limited due to lack of patient participation) GI: Central Obesity and therefore could not palpate liver or spleen, Soft, BSx4 Ext: Pulses are strong and equal, Capillary Refill is 2 seconds, NO edema Neuro: exam is not possible at this time Assessment and Plan: 1). Hepatic Encephalopathy/Alcoholic Cirrhosis/Elevated Bilirubin Lactulose 30 gm NG Q6H to treat the elevated Ammonia level which will be monitored: NO bowel movement yet as per my conversation with ICU Nurse Xifaxan 550 mg NG BID Lasix 40 mg NG 1x/day Spiranolactone 100 mg NG 1x/day Folic Acid 1 mg NG 1x/day MVI NG 1x/day Thiamine 100 mg NG 1x/day Patient was seen by GI on prior admissions Total Bilirubin is lower than it has been since last admission CT Liver 04/26/17: nodular hepatic contour consistent with cirrhosis, extensive hepatic steatosis, NO enhancing hepatic mass, splenomegaly, paraesophageal and upper abdominal varices 2). Hx HTN Lasix 40 mg NG 1x/day Spiranolactone 100 mg NG 1x/day 3). Hx HLD NOT on a statin as per home medication list 4). Questionable Hx of CHF? This as per admission H&P However 2D Echocardiogram done in January 2017 was unremarkable 5). Questionable Hx of COPD? 6). Hx Schizophrenia Lurasidone 40 mg NG HS 7). Hx PVD Pletal 100 mg NG 2x/day 8). Hx Anemia Likely Secondary to Iron Deficiency Iron Level is low Ferrous Sulfate Liquid 300 mg NG 2x/day 9). Hypomagnesemia Repleted upon admisison earlier this morning Monitor 10). Prophylaxis Pepcid 20 mg NG 2x/day Heparin 5,000 Units SC Q8H Zofran 4 mg IV Q6H PRN N/V Objective - Vital Signs/Intake and Output Vital Signs (last 24 hours): Temp Pulse Resp BP Pulse Ox 98.2 F 80 14 123/69 98 08/26/17 08:00 08/26/17 09:03 08/26/17 09:03 08/26/17 09:47 08/26/17 09:03 Intake and Output: 08/26/17 08/26/17 06:59 18:59 Intake Total 1100 0 Output Total 1680 500 Balance -580 -500 - Medications Medications: Current Medications Aspirin (Aspirin Chewable) 81 mg PO DAILY [facility] Last Admin: 08/26/17 09:47 Dose: 81 mg Cilostazol (Pletal) 100 mg PO BID [facility] Last Admin: 08/26/17 10:35 Dose: 100 mg Famotidine (Pepcid) 20 mg IVP Q12 [facility] Last Admin: 08/26/17 09:47 Dose: 20 mg Folic Acid (Folic Acid) 1 mg PO DAILY [facility] Last Admin: 08/26/17 09:47 Dose: 1 mg Furosemide (Lasix) 40 mg PO DAILY [facility] Last Admin: 08/26/17 09:47 Dose: 40 mg Heparin Sodium (Porcine) (Heparin) 5,000 units SC Q8 [facility] Last Admin: 08/26/17 06:12 Dose: 5,000 units Home Med (Lurasidone Hcl [Latuda]) 40 mg PO HS [facility] Lactulose (Enulose) 30 gm PO Q6H [facility] Last Admin: 08/26/17 08:05 Dose: 30 gm Midodrine (Proamatine) 5 mg PO TID [facility] Last Admin: 08/26/17 10:34 Dose: 5 mg Ondansetron HCl (Zofran Inj) 4 mg IVP Q6H PRN PRN Reason: Nausea/Vomiting Rifaximin (Xifaxan) 550 mg PO BID [facility] Last Admin: 08/26/17 10:34 Dose: 550 mg Spironolactone (Aldactone) 100 mg PO DAILY [facility] Last Admin: 08/26/17 10:34 Dose: 100 mg Thiamine HCl (Vitamin B1 Tab) 100 mg PO DAILY [facility] Last Admin: 08/26/17 09:47 Dose: 100 mg - Labs Labs: 08/26/17 06:46 08/26/17 06:46 PT 18.1 SECONDS (9.7-12.2) H 08/25/17 22:20 INR 1.6 08/25/17 22:20 APTT 31 SECONDS (21-34) 08/25/17 22:20
[2017-08-26] MEDS: Multiple Vitamins Tab PO SCH (11:50)
[2017-08-26] MEDS: Ferrous Sulfate 300 mg/5 mL Liq UD PO SCH ×2 (11:50→17:21)
--- NOTE | 2017-08-26 13:40 | CP.CCUPN ---
<Jonelle Jones - Last Filed: 08/26/17 13:49> CCU Subjective - Physician Review Subjective (Free Text): 08/26/17 13:[address] Parker Patient seen and examined at bedside. Patient is lethargic, and does not respond unless his name is called and with sternal rub. Patient denies head pain but admits to abdominal pain. Critical Care Time Spent (in minutes): 35 CCU Objective - Vital Signs / Intake & Output Vital Signs (Last 4 hours): Vital Signs Pulse Resp BP Pulse Ox 08/26/17 13:03 93 H 18 125/86 100 08/26/17 13:00 96 H 14 99 08/26/17 12:03 97 H 14 145/79 100 08/26/17 12:00 98 H 15 99 08/26/17 11:03 94 H 14 149/71 99 08/26/17 11:00 95 H 18 100 08/26/17 10:03 78 14 140/72 100 08/26/17 10:00 78 13 99 08/26/17 09:47 123/69 Intake and Output (Last 8hrs): Intake & Output 08/25/17 08/26/17 08/26/17 22:59 06:59 14:59 Intake Total 1100 850 Output Total 1680 1325 Balance -580 -475 Weight 286 lb 9.615 oz 287 lb Intake: IV 1000 Intake, IV Amount 0 400 Right Hand 0 400 Tube Feeding 100 Other 450 Output: Gastric Amount 30 Urine 1650 1325 Urethral (Dorsey) 1450 1325 Other: Voiding Method Indwelling Catheter # Bowel Movements 0 - Physical Exam Physical Exam Limitations: Positive for: Altered Mental Status Head: Positive for: Atraumatic, Normocephalic Pupils: Positive for: PERRL Conjunctiva: Positive for: Normal Pharnyx: Positive for: Normal Neck: Positive for: Trachea Midline. Negative for: JVD Respiratory/Chest: Positive for: Clear to Auscultation Cardiovascular: Positive for: Regular Rate and Rhythm, Normal S1, S2 Neurological: Negative for: Speech Normal (slurred speech) Skin: Positive for: Warm, Dry Psychiatric: Negative for: Alert, Oriented x 3 - Medications Active Medications: Active Medications Generic Name Dose Route Start Last Admin Trade Name Freq PRN Reason Stop Dose Admin Aspirin 81 mg 08/26/17 10:00 08/26/17 09:47 Aspirin Chewable PO 81 mg DAILY FLORES Administration Cilostazol 100 mg 08/26/17 10:00 08/26/17 10:35 Pletal PO 100 mg BID FLORES Administration Famotidine 20 mg 08/26/17 10:00 08/26/17 09:47 Pepcid IVP 20 mg Q12 FLORES Administration Ferrous Sulfate 300 mg 08/26/17 11:00 08/26/17 11:50 Feosol Liq PO 300 mg BID FLORES Administration Folic Acid 1 mg 08/26/17 10:00 08/26/17 09:47 Folic Acid PO 1 mg DAILY FLORES Administration Furosemide 40 mg 08/26/17 10:00 08/26/17 09:47 Lasix PO 40 mg DAILY FLORES Administration Heparin Sodium (Porcine) 5,000 units 08/26/17 06:00 08/26/17 13:37 Heparin SC 5,000 units Q8 FLORES Administration Home Med 40 mg 08/26/17 22:00 Lurasidone Hcl [Latuda] PO HS [facility] Lactulose 30 gm 08/26/17 01:00 08/26/17 12:25 Enulose PO 30 gm Q6H FLORES Administration Midodrine 5 mg 08/26/17 10:00 08/26/17 10:34 Proamatine PO 5 mg TID FLORES Administration Multivitamins 1 tab 08/26/17 11:00 08/26/17 11:50 Hexavitamin PO 1 tab DAILY FLORES Administration Ondansetron HCl 4 mg 08/26/17 00:50 Zofran Inj IVP Q6H PRN Nausea/Vomiting Rifaximin 550 mg 08/26/17 10:00 08/26/17 10:34 Xifaxan PO 550 mg BID FLORES Administration Spironolactone 100 mg 08/26/17 10:00 08/26/17 10:34 Aldactone PO 100 mg DAILY FLORES Administration Thiamine HCl 100 mg 08/26/17 10:00 08/26/17 09:47 Vitamin B1 Tab PO 100 mg DAILY FLORES Administration - Patient Studies Lab Studies: Lab Studies 08/26/17 08/26/17 08/26/17 Range/Units 11:13 08:56 06:59 WBC (4.8-10.8) K/uL RBC (4.40-5.90) Mil/uL Hgb (12.0-18.0) g/dL Hct (35.0-51.0) % MCV (80.0-94.0) fL MCH (27.0-31.0) pg MCHC (33.0-37.0) g/dL RDW (11.5-14.5) % Plt Count (130-400) K/uL MPV (7.2-11.7) fL Neut % (Auto) (50.0-75.0) % Lymph % (Auto) (20.0-40.0) % [place] % (Auto) (0.0-10.0) % Eos % (Auto) (0.0-4.0) % Baso % (Auto) (0.0-2.0) % Neut # (1.8-7.0) K/uL Lymph # (1.0-4.3) K/uL [place] # (0.0-0.8) K/uL Eos # (0.0-0.7) K/uL Baso # (0.0-0.2) K/uL PT (9.7-12.2) SECONDS INR APTT (21-34) SECONDS pO2 (30-55) mm/Hg VBG pH (7.32-7.43) VBG pCO2 (40-60) mmHg VBG HCO3 mmol/L VBG Total CO2 (22-28) mmol/L VBG O2 Sat (Calc) (40-65) % VBG Base Excess (0.0-2.0) mmol/L VBG Potassium (3.6-5.2) mmol/L Sodium (132-148) mmol/l Chloride (98-107) mmol/L Glucose (75-110) mg/dl Lactate (0.7-2.1) mmol/L Potassium (3.6-5.2) mmol/L Carbon Dioxide (22-30) mmol/L Anion Gap (10-20) BUN (9-20) mg/dL Creatinine (0.8-1.5) mg/dL Est GFR ( Amer) Est GFR (Non-Af Amer) POC Glucose (mg/dL) 84 109 (65-110) mg/dL Random Glucose (75-110) mg/dL Hemoglobin A1c (4.2-6.5) % Serum Osmolality (272-300) mosm/kg Calcium (8.6-10.4) mg/dl Phosphorus (2.5-4.5) mg/dL Magnesium (1.6-2.3) mg/dL Iron (49-181) ug/dL TIBC (250-450) ug/dL % Saturation (20-55) Total Bilirubin (0.2-1.3) mg/dL AST (17-59) U/L ALT (21-72) U/L Alkaline Phosphatase (38-126) U/L Ammonia 127 H D (9-33) umol/L Troponin I (0.00-0.120) ng/mL Total Protein (6.3-8.3) g/dL Albumin (3.5-5.0) g/dL Globulin (2.2-3.9) gm/dL Albumin/Globulin Ratio (1.0-2.1) Lipase (23-300) U/L Vitamin B12 (239-931) pg/mL Folate ng/mL Venous Blood Potassium (3.6-5.2) mmol/L Urine Color (YELLOW) Urine Clarity (Clear) Urine pH (5.0-8.0) Ur Specific [place] (1.003-1.030) Urine Protein (NEGATIVE) mg/dL Urine Glucose (UA) (Normal) mg/dL Urine Ketones (NEGATIVE) mg/dL Urine Blood (NEGATIVE) Urine Nitrate (NEGATIVE) Urine Bilirubin (NEGATIVE) Urine Urobilinogen (0.2-1.0) mg/dL Ur Leukocyte Esterase (Negative) Taylor/uL Urine WBC (Auto) (0-5) /hpf Ur Squamous Epith Cells (0-5) /hpf Salicylates mg/dL 1 Urine Opiates Screen (NEGATIVE) Urine Methadone Screen (NEGATIVE) Acetaminophen (10.0-30.0) ug/mL Ur Barbiturates Screen (NEGATIVE) Ur Phencyclidine Scrn (NEGATIVE) Ur Amphetamines Screen (NEGATIVE) U Benzodiazepines Scrn (NEGATIVE) U Oth Cocaine Metabols (NEGATIVE) U Cannabinoids Screen (NEGATIVE) Alcohol, Quantitative (0-10) mg/dl 08/26/17 08/26/17 08/26/17 Range/Units 06:46 06:46 06:46 WBC 3.5 L (4.8-10.8) K/uL RBC 3.58 L (4.40-5.90) Mil/uL Hgb 10.5 L (12.0-18.0) g/dL Hct 31.0 L (35.0-51.0) % MCV 86.7 (80.0-94.0) fL MCH 29.4 (27.0-31.0) pg MCHC 33.9 (33.0-37.0) g/dL RDW 19.8 H (11.5-14.5) % Plt Count 168 (130-400) K/uL MPV 7.9 (7.2-11.7) fL Neut % (Auto) 47.0 L (50.0-75.0) % Lymph % (Auto) 34.4 (20.0-40.0) % [place] % (Auto) 12.8 H (0.0-10.0) % Eos % (Auto) 4.0 (0.0-4.0) % Baso % (Auto) 1.8 (0.0-2.0) % Neut # 1.6 L (1.8-7.0) K/uL Lymph # 1.2 (1.0-4.3) K/uL [place] # 0.4 (0.0-0.8) K/uL Eos # 0.1 (0.0-0.7) K/uL Baso # 0.1 (0.0-0.2) K/uL PT (9.7-12.2) SECONDS INR APTT (21-34) SECONDS pO2 (30-55) mm/Hg VBG pH (7.32-7.43) VBG pCO2 (40-60) mmHg VBG HCO3 mmol/L VBG Total CO2 (22-28) mmol/L VBG O2 Sat (Calc) (40-65) % VBG Base Excess (0.0-2.0) mmol/L VBG Potassium (3.6-5.2) mmol/L Sodium 135 (132-148) mmol/l Chloride 104 (98-107) mmol/L Glucose (75-110) mg/dl Lactate (0.7-2.1) mmol/L Potassium 4.0 (3.6-5.2) mmol/L Carbon Dioxide 24 (22-30) mmol/L Anion Gap 11 (10-20) BUN 10 (9-20) mg/dL Creatinine 0.8 (0.8-1.5) mg/dL Est GFR ( Amer) > 60 Est GFR (Non-Af Amer) > 60 POC Glucose (mg/dL) (65-110) mg/dL Random Glucose 99 (75-110) mg/dL Hemoglobin A1c (4.2-6.5) % Serum Osmolality (272-300) mosm/kg Calcium 8.3 L (8.6-10.4) mg/dl Phosphorus 3.6 (2.5-4.5) mg/dL Magnesium 1.5 L (1.6-2.3) mg/dL Iron 36 L (49-181) ug/dL TIBC 292 (250-450) ug/dL % Saturation 12 L (20-55) Total Bilirubin 1.6 H (0.2-1.3) mg/dL AST 63 H (17-59) U/L ALT 39 (21-72) U/L Alkaline Phosphatase 121 (38-126) U/L Ammonia (9-33) umol/L Troponin I (0.00-0.120) ng/mL Total Protein 7.7 (6.3-8.3) g/dL Albumin 2.9 L (3.5-5.0) g/dL Globulin 4.7 H (2.2-3.9) gm/dL Albumin/Globulin Ratio 0.6 L (1.0-2.1) Lipase (23-300) U/L Vitamin B12 955 H (239-931) pg/mL Folate 14.5 ng/mL Venous Blood Potassium (3.6-5.2) mmol/L Urine Color (YELLOW) Urine Clarity (Clear) Urine pH (5.0-8.0) Ur Specific [place] (1.003-1.030) Urine Protein (NEGATIVE) mg/dL Urine Glucose (UA) (Normal) mg/dL Urine Ketones (NEGATIVE) mg/dL Urine Blood (NEGATIVE) Urine Nitrate (NEGATIVE) Urine Bilirubin (NEGATIVE) Urine Urobilinogen (0.2-1.0) mg/dL Ur Leukocyte Esterase (Negative) Taylor/uL Urine WBC (Auto) (0-5) /hpf Ur Squamous Epith Cells (0-5) /hpf Salicylates mg/dL 1 Urine Opiates Screen (NEGATIVE) Urine Methadone Screen (NEGATIVE) Acetaminophen (10.0-30.0) ug/mL Ur Barbiturates Screen (NEGATIVE) Ur Phencyclidine Scrn (NEGATIVE) Ur Amphetamines Screen (NEGATIVE) U Benzodiazepines Scrn (NEGATIVE) U Oth Cocaine Metabols (NEGATIVE) U Cannabinoids Screen (NEGATIVE) Alcohol, Quantitative (0-10) mg/dl 08/26/17 08/25/17 08/25/17 Range/Units 06:46 23:11 23:11 WBC (4.8-10.8) K/uL RBC (4.40-5.90) Mil/uL Hgb (12.0-18.0) g/dL Hct (35.0-51.0) % MCV (80.0-94.0) fL MCH (27.0-31.0) pg MCHC (33.0-37.0) g/dL RDW (11.5-14.5) % Plt Count (130-400) K/uL MPV (7.2-11.7) fL Neut % (Auto) (50.0-75.0) % Lymph % (Auto) (20.0-40.0) % [place] % (Auto) (0.0-10.0) % Eos % (Auto) (0.0-4.0) % Baso % (Auto) (0.0-2.0) % Neut # (1.8-7.0) K/uL Lymph # (1.0-4.3) K/uL [place] # (0.0-0.8) K/uL Eos # (0.0-0.7) K/uL Baso # (0.0-0.2) K/uL PT (9.7-12.2) SECONDS INR APTT (21-34) SECONDS pO2 (30-55) mm/Hg VBG pH (7.32-7.43) VBG pCO2 (40-60) mmHg VBG HCO3 mmol/L VBG Total CO2 (22-28) mmol/L VBG O2 Sat (Calc) (40-65) % VBG Base Excess (0.0-2.0) mmol/L VBG Potassium (3.6-5.2) mmol/L Sodium (132-148) mmol/l Chloride (98-107) mmol/L Glucose (75-110) mg/dl Lactate (0.7-2.1) mmol/L Potassium (3.6-5.2) mmol/L Carbon Dioxide (22-30) mmol/L Anion Gap (10-20) BUN (9-20) mg/dL Creatinine (0.8-1.5) mg/dL Est GFR ( Amer) Est GFR (Non-Af Amer) POC Glucose (mg/dL) (65-110) mg/dL Random Glucose (75-110) mg/dL Hemoglobin A1c 4.4 (4.2-6.5) % Serum Osmolality (272-300) mosm/kg Calcium (8.6-10.4) mg/dl Phosphorus (2.5-4.5) mg/dL Magnesium (1.6-2.3) mg/dL Iron (49-181) ug/dL TIBC (250-450) ug/dL % Saturation (20-55) Total Bilirubin (0.2-1.3) mg/dL AST (17-59) U/L ALT (21-72) U/L Alkaline Phosphatase (38-126) U/L Ammonia (9-33) umol/L Troponin I (0.00-0.120) ng/mL Total Protein (6.3-8.3) g/dL Albumin (3.5-5.0) g/dL Globulin (2.2-3.9) gm/dL Albumin/Globulin Ratio (1.0-2.1) Lipase (23-300) U/L Vitamin B12 (239-931) pg/mL Folate ng/mL Venous Blood Potassium (3.6-5.2) mmol/L Urine Color Yellow (YELLOW) Urine Clarity Clear (Clear) Urine pH 6.0 (5.0-8.0) Ur Specific [place] 1.015 (1.003-1.030) Urine Protein Negative (NEGATIVE) mg/dL Urine Glucose (UA) Normal (Normal) mg/dL Urine Ketones Trace (NEGATIVE) mg/dL Urine Blood Negative (NEGATIVE) Urine Nitrate Negative (NEGATIVE) Urine Bilirubin Negative (NEGATIVE) Urine Urobilinogen 2.0 (0.2-1.0) mg/dL Ur Leukocyte Esterase Neg (Negative) Taylor/uL Urine WBC (Auto) 1 (0-5) /hpf Ur Squamous Epith Cells < 1 (0-5) /hpf Salicylates mg/dL 1 Urine Opiates Screen Negative (NEGATIVE) Urine Methadone Screen Negative (NEGATIVE) Acetaminophen (10.0-30.0) ug/mL Ur Barbiturates Screen Negative (NEGATIVE) Ur Phencyclidine Scrn Negative (NEGATIVE) Ur Amphetamines Screen Negative (NEGATIVE) U Benzodiazepines Scrn Negative (NEGATIVE) U Oth Cocaine Metabols Negative (NEGATIVE) U Cannabinoids Screen Negative (NEGATIVE) Alcohol, Quantitative (0-10) mg/dl 08/25/17 08/25/17 08/25/17 Range/Units 22:20 22:20 22:20 WBC (4.8-10.8) K/uL RBC (4.40-5.90) Mil/uL Hgb (12.0-18.0) g/dL Hct (35.0-51.0) % MCV (80.0-94.0) fL MCH (27.0-31.0) pg MCHC (33.0-37.0) g/dL RDW (11.5-14.5) % Plt Count (130-400) K/uL MPV (7.2-11.7) fL Neut % (Auto) (50.0-75.0) % Lymph % (Auto) (20.0-40.0) % [place] % (Auto) (0.0-10.0) % Eos % (Auto) (0.0-4.0) % Baso % (Auto) (0.0-2.0) % Neut # (1.8-7.0) K/uL Lymph # (1.0-4.3) K/uL [place] # (0.0-0.8) K/uL Eos # (0.0-0.7) K/uL Baso # (0.0-0.2) K/uL PT (9.7-12.2) SECONDS INR APTT (21-34) SECONDS pO2 (30-55) mm/Hg VBG pH (7.32-7.43) VBG pCO2 (40-60) mmHg VBG HCO3 mmol/L VBG Total CO2 (22-28) mmol/L VBG O2 Sat (Calc) (40-65) % VBG Base Excess (0.0-2.0) mmol/L VBG Potassium (3.6-5.2) mmol/L Sodium (132-148) mmol/l Chloride (98-107) mmol/L Glucose (75-110) mg/dl Lactate (0.7-2.1) mmol/L Potassium (3.6-5.2) mmol/L Carbon Dioxide (22-30) mmol/L Anion Gap (10-20) BUN (9-20) mg/dL Creatinine (0.8-1.5) mg/dL Est GFR ( Amer) Est GFR (Non-Af Amer) POC Glucose (mg/dL) (65-110) mg/dL Random Glucose (75-110) mg/dL Hemoglobin A1c (4.2-6.5) % Serum Osmolality 285 (272-300) mosm/kg Calcium (8.6-10.4) mg/dl Phosphorus (2.5-4.5) mg/dL Magnesium (1.6-2.3) mg/dL Iron (49-181) ug/dL TIBC (250-450) ug/dL % Saturation (20-55) Total Bilirubin (0.2-1.3) mg/dL AST (17-59) U/L ALT (21-72) U/L Alkaline Phosphatase (38-126) U/L Ammonia 257 H D (9-33) umol/L Troponin I (0.00-0.120) ng/mL Total Protein (6.3-8.3) g/dL Albumin (3.5-5.0) g/dL Globulin (2.2-3.9) gm/dL Albumin/Globulin Ratio (1.0-2.1) Lipase (23-300) U/L Vitamin B12 (239-931) pg/mL Folate ng/mL Venous Blood Potassium (3.6-5.2) mmol/L Urine Color (YELLOW) Urine Clarity (Clear) Urine pH (5.0-8.0) Ur Specific [place] (1.003-1.030) Urine Protein (NEGATIVE) mg/dL Urine Glucose (UA) (Normal) mg/dL Urine Ketones (NEGATIVE) mg/dL Urine Blood (NEGATIVE) Urine Nitrate (NEGATIVE) Urine Bilirubin (NEGATIVE) Urine Urobilinogen (0.2-1.0) mg/dL Ur Leukocyte Esterase (Negative) Taylor/uL Urine WBC (Auto) (0-5) /hpf Ur Squamous Epith Cells (0-5) /hpf Salicylates < 1.0 mg/dL 1 Urine Opiates Screen (NEGATIVE) Urine Methadone Screen (NEGATIVE) Acetaminophen < 10.0 L (10.0-30.0) ug/mL Ur Barbiturates Screen (NEGATIVE) Ur Phencyclidine Scrn (NEGATIVE) Ur Amphetamines Screen (NEGATIVE) U Benzodiazepines Scrn (NEGATIVE) U Oth Cocaine Metabols (NEGATIVE) U Cannabinoids Screen (NEGATIVE) Alcohol, Quantitative (0-10) mg/dl 08/25/17 08/25/17 08/25/17 Range/Units 22:20 22:20 22:20 WBC 3.2 L (4.8-10.8) K/uL RBC 3.96 L (4.40-5.90) Mil/uL Hgb 11.6 L (12.0-18.0) g/dL Hct 34.6 L (35.0-51.0) % MCV 87.4 (80.0-94.0) fL MCH 29.2 (27.0-31.0) pg MCHC 33.4 (33.0-37.0) g/dL RDW 20.8 H (11.5-14.5) % Plt Count 146 (130-400) K/uL MPV 8.1 (7.2-11.7) fL Neut % (Auto) 47.0 L (50.0-75.0) % Lymph % (Auto) 34.1 (20.0-40.0) % [place] % (Auto) 16.3 H (0.0-10.0) % Eos % (Auto) 2.0 (0.0-4.0) % Baso % (Auto) 0.6 (0.0-2.0) % Neut # 1.5 L (1.8-7.0) K/uL Lymph # 1.1 (1.0-4.3) K/uL [place] # 0.5 (0.0-0.8) K/uL Eos # 0.1 (0.0-0.7) K/uL Baso # 0.0 (0.0-0.2) K/uL PT 18.1 H (9.7-12.2) SECONDS INR 1.6 APTT 31 (21-34) SECONDS pO2 (30-55) mm/Hg VBG pH (7.32-7.43) VBG pCO2 (40-60) mmHg VBG HCO3 mmol/L VBG Total CO2 (22-28) mmol/L VBG O2 Sat (Calc) (40-65) % VBG Base Excess (0.0-2.0) mmol/L VBG Potassium (3.6-5.2) mmol/L Sodium 130 L (132-148) mmol/l Chloride 105 (98-107) mmol/L Glucose (75-110) mg/dl Lactate (0.7-2.1) mmol/L Potassium 4.1 (3.6-5.2) mmol/L Carbon Dioxide 18 L (22-30) mmol/L Anion Gap 11 (10-20) BUN 12 (9-20) mg/dL Creatinine 0.9 (0.8-1.5) mg/dL Est GFR ( Amer) > 60 Est GFR (Non-Af Amer) > 60 POC Glucose (mg/dL) (65-110) mg/dL Random Glucose 119 H (75-110) mg/dL Hemoglobin A1c (4.2-6.5) % Serum Osmolality (272-300) mosm/kg Calcium 7.5 L (8.6-10.4) mg/dl Phosphorus (2.5-4.5) mg/dL Magnesium 1.1 L (1.6-2.3) mg/dL Iron (49-181) ug/dL TIBC (250-450) ug/dL % Saturation (20-55) Total Bilirubin 2.1 H (0.2-1.3) mg/dL AST 67 H (17-59) U/L ALT 38 (21-72) U/L Alkaline Phosphatase 122 (38-126) U/L Ammonia (9-33) umol/L Troponin I 0.0230 (0.00-0.120) ng/mL Total Protein 7.7 (6.3-8.3) g/dL Albumin 2.9 L (3.5-5.0) g/dL Globulin 4.8 H (2.2-3.9) gm/dL Albumin/Globulin Ratio 0.6 L (1.0-2.1) Lipase 111 (23-300) U/L Vitamin B12 (239-931) pg/mL Folate ng/mL Venous Blood Potassium (3.6-5.2) mmol/L Urine Color (YELLOW) Urine Clarity (Clear) Urine pH (5.0-8.0) Ur Specific [place] (1.003-1.030) Urine Protein (NEGATIVE) mg/dL Urine Glucose (UA) (Normal) mg/dL Urine Ketones (NEGATIVE) mg/dL Urine Blood (NEGATIVE) Urine Nitrate (NEGATIVE) Urine Bilirubin (NEGATIVE) Urine Urobilinogen (0.2-1.0) mg/dL Ur Leukocyte Esterase (Negative) Taylor/uL Urine WBC (Auto) (0-5) /hpf Ur Squamous Epith Cells (0-5) /hpf Salicylates mg/dL 1 Urine Opiates Screen (NEGATIVE) Urine Methadone Screen (NEGATIVE) Acetaminophen (10.0-30.0) ug/mL Ur Barbiturates Screen (NEGATIVE) Ur Phencyclidine Scrn (NEGATIVE) Ur Amphetamines Screen (NEGATIVE) U Benzodiazepines Scrn (NEGATIVE) U Oth Cocaine Metabols (NEGATIVE) U Cannabinoids Screen (NEGATIVE) Alcohol, Quantitative < 10 (0-10) mg/dl 08/25/17 Range/Units 22:00 WBC (4.8-10.8) K/uL RBC (4.40-5.90) Mil/uL Hgb (12.0-18.0) g/dL Hct (35.0-51.0) % MCV (80.0-94.0) fL MCH (27.0-31.0) pg MCHC (33.0-37.0) g/dL RDW (11.5-14.5) % Plt Count (130-400) K/uL MPV (7.2-11.7) fL Neut % (Auto) (50.0-75.0) % Lymph % (Auto) (20.0-40.0) % [place] % (Auto) (0.0-10.0) % Eos % (Auto) (0.0-4.0) % Baso % (Auto) (0.0-2.0) % Neut # (1.8-7.0) K/uL Lymph # (1.0-4.3) K/uL [place] # (0.0-0.8) K/uL Eos # (0.0-0.7) K/uL Baso # (0.0-0.2) K/uL PT (9.7-12.2) SECONDS INR APTT (21-34) SECONDS pO2 27 L (30-55) mm/Hg VBG pH 7.33 (7.32-7.43) VBG pCO2 37 L (40-60) mmHg VBG HCO3 19.0 mmol/L VBG Total CO2 20.6 L (22-28) mmol/L VBG O2 Sat (Calc) 52.7 (40-65) % VBG Base Excess -5.8 L (0.0-2.0) mmol/L VBG Potassium 3.9 (3.6-5.2) mmol/L Sodium 138.0 (132-148) mmol/l Chloride 108.0 H (98-107) mmol/L Glucose 114 H (75-110) mg/dl Lactate 2.7 H (0.7-2.1) mmol/L Potassium (3.6-5.2) mmol/L Carbon Dioxide (22-30) mmol/L Anion Gap (10-20) BUN (9-20) mg/dL Creatinine (0.8-1.5) mg/dL Est GFR ( Amer) Est GFR (Non-Af Amer) POC Glucose (mg/dL) (65-110) mg/dL Random Glucose (75-110) mg/dL Hemoglobin A1c (4.2-6.5) % Serum Osmolality (272-300) mosm/kg Calcium (8.6-10.4) mg/dl Phosphorus (2.5-4.5) mg/dL Magnesium (1.6-2.3) mg/dL Iron (49-181) ug/dL TIBC (250-450) ug/dL % Saturation (20-55) Total Bilirubin (0.2-1.3) mg/dL AST (17-59) U/L ALT (21-72) U/L Alkaline Phosphatase (38-126) U/L Ammonia (9-33) umol/L Troponin I (0.00-0.120) ng/mL Total Protein (6.3-8.3) g/dL Albumin (3.5-5.0) g/dL Globulin (2.2-3.9) gm/dL Albumin/Globulin Ratio (1.0-2.1) Lipase (23-300) U/L Vitamin B12 (239-931) pg/mL Folate ng/mL Venous Blood Potassium 3.9 (3.6-5.2) mmol/L Urine Color (YELLOW) Urine Clarity (Clear) Urine pH (5.0-8.0) Ur Specific [place] (1.003-1.030) Urine Protein (NEGATIVE) mg/dL Urine Glucose (UA) (Normal) mg/dL Urine Ketones (NEGATIVE) mg/dL Urine Blood (NEGATIVE) Urine Nitrate (NEGATIVE) Urine Bilirubin (NEGATIVE) Urine Urobilinogen (0.2-1.0) mg/dL Ur Leukocyte Esterase (Negative) Taylor/uL Urine WBC (Auto) (0-5) /hpf Ur Squamous Epith Cells (0-5) /hpf Salicylates mg/dL 1 Urine Opiates Screen (NEGATIVE) Urine Methadone Screen (NEGATIVE) Acetaminophen (10.0-30.0) ug/mL Ur Barbiturates Screen (NEGATIVE) Ur Phencyclidine Scrn (NEGATIVE) Ur Amphetamines Screen (NEGATIVE) U Benzodiazepines Scrn (NEGATIVE) U Oth Cocaine Metabols (NEGATIVE) U Cannabinoids Screen (NEGATIVE) Alcohol, Quantitative (0-10) mg/dl Laboratory Results - last 24 hr 08/25/17 08/25/17 08/25/17 22:00 22:20 22:20 WBC 3.2 L RBC 3.96 L Hgb 11.6 L Hct 34.6 L MCV 87.4 MCH 29.2 MCHC 33.4 RDW 20.8 H Plt Count 146 MPV 8.1 Neut % (Auto) 47.0 L Lymph % (Auto) 34.1 [place] % (Auto) 16.3 H Eos % (Auto) 2.0 Baso % (Auto) 0.6 Neut # 1.5 L Lymph # 1.1 [place] # 0.5 Eos # 0.1 Baso # 0.0 PT 18.1 H INR 1.6 APTT 31 pO2 27 L VBG pH 7.33 VBG pCO2 37 L VBG HCO3 19.0 VBG Total CO2 20.6 L VBG O2 Sat (Calc) 52.7 VBG Base Excess -5.8 L VBG Potassium 3.9 Sodium 138.0 Chloride 108.0 H Glucose 114 H Lactate 2.7 H Potassium Carbon Dioxide Anion Gap BUN Creatinine Est GFR ( Amer) Est GFR (Non-Af Amer) POC Glucose (mg/dL) Random Glucose Hemoglobin A1c Serum Osmolality Calcium Phosphorus Magnesium Iron TIBC % Saturation Total Bilirubin AST ALT Alkaline Phosphatase Ammonia Troponin I Total Protein Albumin Globulin Albumin/Globulin Ratio Lipase Vitamin B12 Folate Venous Blood Potassium 3.9 Urine Color Urine Clarity Urine pH Ur Specific [place] Urine Protein Urine Glucose (UA) Urine Ketones Urine Blood Urine Nitrate Urine Bilirubin Urine Urobilinogen Ur Leukocyte Esterase Urine WBC (Auto) Ur Squamous Epith Cells Salicylates Urine Opiates Screen Urine Methadone Screen Acetaminophen Ur Barbiturates Screen Ur Phencyclidine Scrn Ur Amphetamines Screen U Benzodiazepines Scrn U Oth Cocaine Metabols U Cannabinoids Screen Alcohol, Quantitative 08/25/17 08/25/17 08/25/17 22:20 22:20 22:20 WBC RBC Hgb Hct MCV MCH MCHC RDW Plt Count MPV Neut % (Auto) Lymph % (Auto) [place] % (Auto) Eos % (Auto) Baso % (Auto) Neut # Lymph # [place] # Eos # Baso # PT INR APTT pO2 VBG pH VBG pCO2 VBG HCO3 VBG Total CO2 VBG O2 Sat (Calc) VBG Base Excess VBG Potassium Sodium 130 L Chloride 105 Glucose Lactate Potassium 4.1 Carbon Dioxide 18 L Anion Gap 11 BUN 12 Creatinine 0.9 Est GFR ( Amer) > 60 Est GFR (Non-Af Amer) > 60 POC Glucose (mg/dL) Random Glucose 119 H Hemoglobin A1c Serum Osmolality Calcium 7.5 L Phosphorus Magnesium 1.1 L Iron TIBC % Saturation Total Bilirubin 2.1 H AST 67 H ALT 38 Alkaline Phosphatase 122 Ammonia 257 H D Troponin I 0.0230 Total Protein 7.7 Albumin 2.9 L Globulin 4.8 H Albumin/Globulin Ratio 0.6 L Lipase 111 Vitamin B12 Folate Venous Blood Potassium Urine Color Urine Clarity Urine pH Ur Specific [place] Urine Protein Urine Glucose (UA) Urine Ketones Urine Blood Urine Nitrate Urine Bilirubin Urine Urobilinogen Ur Leukocyte Esterase Urine WBC (Auto) Ur Squamous Epith Cells Salicylates < 1.0 Urine Opiates Screen Urine Methadone Screen Acetaminophen < 10.0 L Ur Barbiturates Screen Ur Phencyclidine Scrn Ur Amphetamines Screen U Benzodiazepines Scrn U Oth Cocaine Metabols U Cannabinoids Screen Alcohol, Quantitative < 10 08/25/17 08/25/17 08/25/17 22:20 23:11 23:11 WBC RBC Hgb Hct MCV MCH MCHC RDW Plt Count MPV Neut % (Auto) Lymph % (Auto) [place] % (Auto) Eos % (Auto) Baso % (Auto) Neut # Lymph # [place] # Eos # Baso # PT INR APTT pO2 VBG pH VBG pCO2 VBG HCO3 VBG Total CO2 VBG O2 Sat (Calc) VBG Base Excess VBG Potassium Sodium Chloride Glucose Lactate Potassium Carbon Dioxide Anion Gap BUN Creatinine Est GFR ( Amer) Est GFR (Non-Af Amer) POC Glucose (mg/dL) Random Glucose Hemoglobin A1c Serum Osmolality 285 Calcium Phosphorus Magnesium Iron TIBC % Saturation Total Bilirubin AST ALT Alkaline Phosphatase Ammonia Troponin I Total Protein Albumin Globulin Albumin/Globulin Ratio Lipase Vitamin B12 Folate Venous Blood Potassium Urine Color Yellow Urine Clarity Clear Urine pH 6.0 Ur Specific [place] 1.015 Urine Protein Negative Urine Glucose (UA) Normal Urine Ketones Trace Urine Blood Negative Urine Nitrate Negative Urine Bilirubin Negative Urine Urobilinogen 2.0 Ur Leukocyte Esterase Neg Urine WBC (Auto) 1 Ur Squamous Epith Cells < 1 Salicylates Urine Opiates Screen Negative Urine Methadone Screen Negative Acetaminophen Ur Barbiturates Screen Negative Ur Phencyclidine Scrn Negative Ur Amphetamines Screen Negative U Benzodiazepines Scrn Negative U Oth Cocaine Metabols Negative U Cannabinoids Screen Negative Alcohol, Quantitative 08/26/17 08/26/17 08/26/17 06:46 06:46 06:46 WBC 3.5 L RBC 3.58 L Hgb 10.5 L Hct 31.0 L MCV 86.7 MCH 29.4 MCHC 33.9 RDW 19.8 H Plt Count 168 MPV 7.9 Neut % (Auto) 47.0 L Lymph % (Auto) 34.4 [place] % (Auto) 12.8 H Eos % (Auto) 4.0 Baso % (Auto) 1.8 Neut # 1.6 L Lymph # 1.2 [place] # 0.4 Eos # 0.1 Baso # 0.1 PT INR APTT pO2 VBG pH VBG pCO2 VBG HCO3 VBG Total CO2 VBG O2 Sat (Calc) VBG Base Excess VBG Potassium Sodium Chloride Glucose Lactate Potassium Carbon Dioxide Anion Gap BUN Creatinine Est GFR ( Amer) Est GFR (Non-Af Amer) POC Glucose (mg/dL) Random Glucose Hemoglobin A1c 4.4 Serum Osmolality Calcium Phosphorus Magnesium Iron 36 L TIBC 292 % Saturation 12 L Total Bilirubin AST ALT Alkaline Phosphatase Ammonia Troponin I Total Protein Albumin Globulin Albumin/Globulin Ratio Lipase Vitamin B12 Folate Venous Blood Potassium Urine Color Urine Clarity Urine pH Ur Specific [place] Urine Protein Urine Glucose (UA) Urine Ketones Urine Blood Urine Nitrate Urine Bilirubin Urine Urobilinogen Ur Leukocyte Esterase Urine WBC (Auto) Ur Squamous Epith Cells Salicylates Urine Opiates Screen Urine Methadone Screen Acetaminophen Ur Barbiturates Screen Ur Phencyclidine Scrn Ur Amphetamines Screen U Benzodiazepines Scrn U Oth Cocaine Metabols U Cannabinoids Screen Alcohol, Quantitative 08/26/17 08/26/17 08/26/17 06:46 06:59 08:56 WBC RBC Hgb Hct MCV MCH MCHC RDW Plt Count MPV Neut % (Auto) Lymph % (Auto) [place] % (Auto) Eos % (Auto) Baso % (Auto) Neut # Lymph # [place] # Eos # Baso # PT INR APTT pO2 VBG pH VBG pCO2 VBG HCO3 VBG Total CO2 VBG O2 Sat (Calc) VBG Base Excess VBG Potassium Sodium 135 Chloride 104 Glucose Lactate Potassium 4.0 Carbon Dioxide 24 Anion Gap 11 BUN 10 Creatinine 0.8 Est GFR ( Amer) > 60 Est GFR (Non-Af Amer) > 60 POC Glucose (mg/dL) 109 Random Glucose 99 Hemoglobin A1c Serum Osmolality Calcium 8.3 L Phosphorus 3.6 Magnesium 1.5 L Iron TIBC % Saturation Total Bilirubin 1.6 H AST 63 H ALT 39 Alkaline Phosphatase 121 Ammonia 127 H D Troponin I Total Protein 7.7 Albumin 2.9 L Globulin 4.7 H Albumin/Globulin Ratio 0.6 L Lipase Vitamin B12 955 H Folate 14.5 Venous Blood Potassium Urine Color Urine Clarity Urine pH Ur Specific [place] Urine Protein Urine Glucose (UA) Urine Ketones Urine Blood Urine Nitrate Urine Bilirubin Urine Urobilinogen Ur Leukocyte Esterase Urine WBC (Auto) Ur Squamous Epith Cells Salicylates Urine Opiates Screen Urine Methadone Screen Acetaminophen Ur Barbiturates Screen Ur Phencyclidine Scrn Ur Amphetamines Screen U Benzodiazepines Scrn U Oth Cocaine Metabols U Cannabinoids Screen Alcohol, Quantitative 08/26/17 11:13 WBC RBC Hgb Hct MCV MCH MCHC RDW Plt Count MPV Neut % (Auto) Lymph % (Auto) [place] % (Auto) Eos % (Auto) Baso % (Auto) Neut # Lymph # [place] # Eos # Baso # PT INR APTT pO2 VBG pH VBG pCO2 VBG HCO3 VBG Total CO2 VBG O2 Sat (Calc) VBG Base Excess VBG Potassium Sodium Chloride Glucose Lactate Potassium Carbon Dioxide Anion Gap BUN Creatinine Est GFR ( Amer) Est GFR (Non-Af Amer) POC Glucose (mg/dL) 84 Random Glucose Hemoglobin A1c Serum Osmolality Calcium Phosphorus Magnesium Iron TIBC % Saturation Total Bilirubin AST ALT Alkaline Phosphatase Ammonia Troponin I Total Protein Albumin Globulin Albumin/Globulin Ratio Lipase Vitamin B12 Folate Venous Blood Potassium Urine Color Urine Clarity Urine pH Ur Specific [place] Urine Protein Urine Glucose (UA) Urine Ketones Urine Blood Urine Nitrate Urine Bilirubin Urine Urobilinogen Ur Leukocyte Esterase Urine WBC (Auto) Ur Squamous Epith Cells Salicylates Urine Opiates Screen Urine Methadone Screen Acetaminophen Ur Barbiturates Screen Ur Phencyclidine Scrn Ur Amphetamines Screen U Benzodiazepines Scrn U Oth Cocaine Metabols U Cannabinoids Screen Alcohol, Quantitative EKG/Cardiology Studies: Cardiology / EKG Studies 08/25/17 22:14 ELECTROCARDIOGRAM Stat Comment: Mode Of Transportation: BED Reason For Exam: AMS Fingerstick Blood Sugar Results: 84 Critical Care Progress Note - Nutrition Nutrition: Nutrition Category Date Time Status NPO Diet [DIET] Diets 08/26/17 Breakfast Active Assessment/Plan - Assessment and Plan (Free Text) Assessment: 46M Presents with PMH of cirrhosis, HTN, CHF, COPD, schizophrenia, depression, alcohol abuse history altered mental status and hepatic encephalopathy. Neuro: 08/25 CT head without contrast: No acute findings seen within the brain hepatic encephalopathy history of alcohol abuse (last known drink 4 months ago, as per sister) Monitor ammonia levels (see GI) Lactulose 30 PO Q6H Flores Rifaximin 550 mg PO BID Flores Folic Acid 1 mg PO Daily Flores Thiamine 100 mg PO Daily Flores Multivitamins 1 tab PO Daily Flores Cardio: Troponin: .0230 Aspirin 80 mg PO Daily Flores Hx of HTN Lasix 40 mg PO Daily Flores ? Hx of PVD Cilostazol 100 mg PO BID Flores Pulm: 08/25 CXR: No active disease Protecting airway in ED Aspiration precautions Zofran 4 mg IVP Q6H PRN GI: NPO 08/25 Ammonia 257, Lipase 111 12.29 Ammonia 127, Tbili 2.1 Ammonia Q6H, f/u Hx of Cirrhosis Spironolactone 100 mg PO Daily [facility] Midodrine 5 mg PO TID [facility] Nephro: Monitor electrolytes, replete as needed 08/25 Mag 1.1, 1 gm given in ED Heme/Onc: Monitor H/H 08/25: 11.6/34.6 08/26: 10.5/31 MCV: 86.7 RDW: 19.8 Iron 36 TIBC 292 % Saturation 12 Ferrous sulfate 300 mg PO BID [facility] Prophylactic Measure: GI: Pepcid 20 IVP Q12 DVT: Heparin 5,000 units SC Q8 Flores, SCDs Discussed with Dr. Parker - Date & Time Date: 08/26/17 Time: 13:43 <Alexis Parker S - Last Filed: 08/26/17 17:41> CCU Objective - Vital Signs / Intake & Output Vital Signs (Last 4 hours): Vital Signs Pulse Resp BP Pulse Ox 08/26/17 17:03 107 H 17 130/86 98 08/26/17 17:00 109 H 20 99 08/26/17 16:04 122 H 25 H 118/67 98 08/26/17 16:00 124 H 13 99 08/26/17 15:03 104 H 18 107/77 97 08/26/17 15:00 103 H 16 97 08/26/17 14:03 99 H 14 114/81 100 08/26/17 14:00 103 H 16 99 Intake and Output (Last 8hrs): Intake & Output 08/26/17 08/26/17 08/26/17 06:59 14:59 22:59 Intake Total 1100 750 Output Total 1680 1575 Balance -580 -825 Weight 287 lb Intake: IV 1000 Intake, IV Amount 0 100 Right Hand 0 100 Tube Feeding 100 Other 650 Output: Gastric Amount 30 Urine 1650 1575 Urethral (Dorsey) 1450 1575 Other: Voiding Method Indwelling Catheter # Bowel Movements 0 - Medications Active Medications: Active Medications Generic Name Dose Route Start Last Admin Trade Name Freq PRN Reason Stop Dose Admin Aspirin 81 mg 08/26/17 10:00 08/26/17 09:47 Aspirin Chewable PO 81 mg DAILY FLORES Administration Cilostazol 100 mg 08/26/17 10:00 08/26/17 10:35 Pletal PO 100 mg BID FLORES Administration Famotidine 20 mg 08/26/17 10:00 08/26/17 09:47 Pepcid IVP 20 mg Q12 FLORES Administration Ferrous Sulfate 300 mg 08/26/17 11:00 08/26/17 17:21 Feosol Liq PO 300 mg BID FLORES Administration Folic Acid 1 mg 08/26/17 10:00 08/26/17 09:47 Folic Acid PO 1 mg DAILY FLORES Administration Furosemide 40 mg 08/26/17 10:00 08/26/17 09:47 Lasix PO 40 mg DAILY FLORES Administration Heparin Sodium (Porcine) 5,000 units 08/26/17 06:00 08/26/17 13:37 Heparin SC 5,000 units Q8 FLORES Administration Home Med 40 mg 08/26/17 22:00 Lurasidone Hcl [Latuda] PO HS [facility] Lactulose 30 gm 08/26/17 01:00 08/26/17 12:25 Enulose PO 30 gm Q6H FLORES Administration Midodrine 5 mg 08/26/17 18:00 08/26/17 17:22 Proamatine PO 5 mg TID FLORES Administration Multivitamins 1 tab 08/26/17 11:00 08/26/17 11:50 Hexavitamin PO 1 tab DAILY FLORES Administration Ondansetron HCl 4 mg 08/26/17 00:50 08/26/17 16:10 Zofran Inj IVP 4 mg Q6H PRN Administration Nausea/Vomiting Rifaximin 550 mg 08/26/17 10:00 08/26/17 17:21 Xifaxan PO 550 mg BID FLORES Administration Spironolactone 100 mg 08/26/17 10:00 08/26/17 10:34 Aldactone PO 100 mg DAILY FLORES Administration Thiamine HCl 100 mg 08/26/17 10:00 08/26/17 09:47 Vitamin B1 Tab PO 100 mg DAILY FLORES Administration - Patient Studies Lab Studies: Lab Studies 08/26/17 08/26/17 08/26/17 Range/Units 14:08 11:13 08:56 WBC (4.8-10.8) K/uL RBC (4.40-5.90) Mil/uL Hgb (12.0-18.0) g/dL Hct (35.0-51.0) % MCV (80.0-94.0) fL MCH (27.0-31.0) pg MCHC (33.0-37.0) g/dL RDW (11.5-14.5) % Plt Count (130-400) K/uL MPV (7.2-11.7) fL Neut % (Auto) (50.0-75.0) % Lymph % (Auto) (20.0-40.0) % [place] % (Auto) (0.0-10.0) % Eos % (Auto) (0.0-4.0) % Baso % (Auto) (0.0-2.0) % Neut # (1.8-7.0) K/uL Lymph # (1.0-4.3) K/uL [place] # (0.0-0.8) K/uL Eos # (0.0-0.7) K/uL Baso # (0.0-0.2) K/uL PT (9.7-12.2) SECONDS INR APTT (21-34) SECONDS pO2 (30-55) mm/Hg VBG pH (7.32-7.43) VBG pCO2 (40-60) mmHg VBG HCO3 mmol/L VBG Total CO2 (22-28) mmol/L VBG O2 Sat (Calc) (40-65) % VBG Base Excess (0.0-2.0) mmol/L VBG Potassium (3.6-5.2) mmol/L Sodium (132-148) mmol/l Chloride (98-107) mmol/L Glucose (75-110) mg/dl Lactate (0.7-2.1) mmol/L Potassium (3.6-5.2) mmol/L Carbon Dioxide (22-30) mmol/L Anion Gap (10-20) BUN (9-20) mg/dL Creatinine (0.8-1.5) mg/dL Est GFR ( Amer) Est GFR (Non-Af Amer) POC Glucose (mg/dL) 84 (65-110) mg/dL Random Glucose (75-110) mg/dL Hemoglobin A1c (4.2-6.5) % Serum Osmolality (272-300) mosm/kg Calcium (8.6-10.4) mg/dl Phosphorus (2.5-4.5) mg/dL Magnesium (1.6-2.3) mg/dL Iron (49-181) ug/dL TIBC (250-450) ug/dL % Saturation (20-55) Total Bilirubin (0.2-1.3) mg/dL AST (17-59) U/L ALT (21-72) U/L Alkaline Phosphatase (38-126) U/L Ammonia 56 H D 127 H D (9-33) umol/L Troponin I (0.00-0.120) ng/mL Total Protein (6.3-8.3) g/dL Albumin (3.5-5.0) g/dL Globulin (2.2-3.9) gm/dL Albumin/Globulin Ratio (1.0-2.1) Lipase (23-300) U/L Vitamin B12 (239-931) pg/mL Folate ng/mL Venous Blood Potassium (3.6-5.2) mmol/L Urine Color (YELLOW) Urine Clarity (Clear) Urine pH (5.0-8.0) Ur Specific [place] (1.003-1.030) Urine Protein (NEGATIVE) mg/dL Urine Glucose (UA) (Normal) mg/dL Urine Ketones (NEGATIVE) mg/dL Urine Blood (NEGATIVE) Urine Nitrate (NEGATIVE) Urine Bilirubin (NEGATIVE) Urine Urobilinogen (0.2-1.0) mg/dL Ur Leukocyte Esterase (Negative) Taylor/uL Urine WBC (Auto) (0-5) /hpf Ur Squamous Epith Cells (0-5) /hpf Salicylates mg/dL 1 Urine Opiates Screen (NEGATIVE) Urine Methadone Screen (NEGATIVE) Acetaminophen (10.0-30.0) ug/mL Ur Barbiturates Screen (NEGATIVE) Ur Phencyclidine Scrn (NEGATIVE) Ur Amphetamines Screen (NEGATIVE) U Benzodiazepines Scrn (NEGATIVE) U Oth Cocaine Metabols (NEGATIVE) U Cannabinoids Screen (NEGATIVE) Alcohol, Quantitative (0-10) mg/dl 08/26/17 08/26/17 08/26/17 Range/Units 06:59 06:46 06:46 WBC 3.5 L (4.8-10.8) K/uL RBC 3.58 L (4.40-5.90) Mil/uL Hgb 10.5 L (12.0-18.0) g/dL Hct 31.0 L (35.0-51.0) % MCV 86.7 (80.0-94.0) fL MCH 29.4 (27.0-31.0) pg MCHC 33.9 (33.0-37.0) g/dL RDW 19.8 H (11.5-14.5) % Plt Count 168 (130-400) K/uL MPV 7.9 (7.2-11.7) fL Neut % (Auto) 47.0 L (50.0-75.0) % Lymph % (Auto) 34.4 (20.0-40.0) % [place] % (Auto) 12.8 H (0.0-10.0) % Eos % (Auto) 4.0 (0.0-4.0) % Baso % (Auto) 1.8 (0.0-2.0) % Neut # 1.6 L (1.8-7.0) K/uL Lymph # 1.2 (1.0-4.3) K/uL [place] # 0.4 (0.0-0.8) K/uL Eos # 0.1 (0.0-0.7) K/uL Baso # 0.1 (0.0-0.2) K/uL PT (9.7-12.2) SECONDS INR APTT (21-34) SECONDS pO2 (30-55) mm/Hg VBG pH (7.32-7.43) VBG pCO2 (40-60) mmHg VBG HCO3 mmol/L VBG Total CO2 (22-28) mmol/L VBG O2 Sat (Calc) (40-65) % VBG Base Excess (0.0-2.0) mmol/L VBG Potassium (3.6-5.2) mmol/L Sodium 135 (132-148) mmol/l Chloride 104 (98-107) mmol/L Glucose (75-110) mg/dl Lactate (0.7-2.1) mmol/L Potassium 4.0 (3.6-5.2) mmol/L Carbon Dioxide 24 (22-30) mmol/L Anion Gap 11 (10-20) BUN 10 (9-20) mg/dL Creatinine 0.8 (0.8-1.5) mg/dL Est GFR ( Amer) > 60 Est GFR (Non-Af Amer) > 60 POC Glucose (mg/dL) 109 (65-110) mg/dL Random Glucose 99 (75-110) mg/dL Hemoglobin A1c (4.2-6.5) % Serum Osmolality (272-300) mosm/kg Calcium 8.3 L (8.6-10.4) mg/dl Phosphorus 3.6 (2.5-4.5) mg/dL Magnesium 1.5 L (1.6-2.3) mg/dL Iron (49-181) ug/dL TIBC (250-450) ug/dL % Saturation (20-55) Total Bilirubin 1.6 H (0.2-1.3) mg/dL AST 63 H (17-59) U/L ALT 39 (21-72) U/L Alkaline Phosphatase 121 (38-126) U/L Ammonia (9-33) umol/L Troponin I (0.00-0.120) ng/mL Total Protein 7.7 (6.3-8.3) g/dL Albumin 2.9 L (3.5-5.0) g/dL Globulin 4.7 H (2.2-3.9) gm/dL Albumin/Globulin Ratio 0.6 L (1.0-2.1) Lipase (23-300) U/L Vitamin B12 955 H (239-931) pg/mL Folate 14.5 ng/mL Venous Blood Potassium (3.6-5.2) mmol/L Urine Color (YELLOW) Urine Clarity (Clear) Urine pH (5.0-8.0) Ur Specific [place] (1.003-1.030) Urine Protein (NEGATIVE) mg/dL Urine Glucose (UA) (Normal) mg/dL Urine Ketones (NEGATIVE) mg/dL Urine Blood (NEGATIVE) Urine Nitrate (NEGATIVE) Urine Bilirubin (NEGATIVE) Urine Urobilinogen (0.2-1.0) mg/dL Ur Leukocyte Esterase (Negative) Taylor/uL Urine WBC (Auto) (0-5) /hpf Ur Squamous Epith Cells (0-5) /hpf Salicylates mg/dL 1 Urine Opiates Screen (NEGATIVE) Urine Methadone Screen (NEGATIVE) Acetaminophen (10.0-30.0) ug/mL Ur Barbiturates Screen (NEGATIVE) Ur Phencyclidine Scrn (NEGATIVE) Ur Amphetamines Screen (NEGATIVE) U Benzodiazepines Scrn (NEGATIVE) U Oth Cocaine Metabols (NEGATIVE) U Cannabinoids Screen (NEGATIVE) Alcohol, Quantitative (0-10) mg/dl 08/26/17 08/26/17 08/25/17 Range/Units 06:46 06:46 23:11 WBC (4.8-10.8) K/uL RBC (4.40-5.90) Mil/uL Hgb (12.0-18.0) g/dL Hct (35.0-51.0) % MCV (80.0-94.0) fL MCH (27.0-31.0) pg MCHC (33.0-37.0) g/dL RDW (11.5-14.5) % Plt Count (130-400) K/uL MPV (7.2-11.7) fL Neut % (Auto) (50.0-75.0) % Lymph % (Auto) (20.0-40.0) % [place] % (Auto) (0.0-10.0) % Eos % (Auto) (0.0-4.0) % Baso % (Auto) (0.0-2.0) % Neut # (1.8-7.0) K/uL Lymph # (1.0-4.3) K/uL [place] # (0.0-0.8) K/uL Eos # (0.0-0.7) K/uL Baso # (0.0-0.2) K/uL PT (9.7-12.2) SECONDS INR APTT (21-34) SECONDS pO2 (30-55) mm/Hg VBG pH (7.32-7.43) VBG pCO2 (40-60) mmHg VBG HCO3 mmol/L VBG Total CO2 (22-28) mmol/L VBG O2 Sat (Calc) (40-65) % VBG Base Excess (0.0-2.0) mmol/L VBG Potassium (3.6-5.2) mmol/L Sodium (132-148) mmol/l Chloride (98-107) mmol/L Glucose (75-110) mg/dl Lactate (0.7-2.1) mmol/L Potassium (3.6-5.2) mmol/L Carbon Dioxide (22-30) mmol/L Anion Gap (10-20) BUN (9-20) mg/dL Creatinine (0.8-1.5) mg/dL Est GFR ( Amer) Est GFR (Non-Af Amer) POC Glucose (mg/dL) (65-110) mg/dL Random Glucose (75-110) mg/dL Hemoglobin A1c 4.4 (4.2-6.5) % Serum Osmolality (272-300) mosm/kg Calcium (8.6-10.4) mg/dl Phosphorus (2.5-4.5) mg/dL Magnesium (1.6-2.3) mg/dL Iron 36 L (49-181) ug/dL TIBC 292 (250-450) ug/dL % Saturation 12 L (20-55) Total Bilirubin (0.2-1.3) mg/dL AST (17-59) U/L ALT (21-72) U/L Alkaline Phosphatase (38-126) U/L Ammonia (9-33) umol/L Troponin I (0.00-0.120) ng/mL Total Protein (6.3-8.3) g/dL Albumin (3.5-5.0) g/dL Globulin (2.2-3.9) gm/dL Albumin/Globulin Ratio (1.0-2.1) Lipase (23-300) U/L Vitamin B12 (239-931) pg/mL Folate ng/mL Venous Blood Potassium (3.6-5.2) mmol/L Urine Color (YELLOW) Urine Clarity (Clear) Urine pH (5.0-8.0) Ur Specific [place] (1.003-1.030) Urine Protein (NEGATIVE) mg/dL Urine Glucose (UA) (Normal) mg/dL Urine Ketones (NEGATIVE) mg/dL Urine Blood (NEGATIVE) Urine Nitrate (NEGATIVE) Urine Bilirubin (NEGATIVE) Urine Urobilinogen (0.2-1.0) mg/dL Ur Leukocyte Esterase (Negative) Taylor/uL Urine WBC (Auto) (0-5) /hpf Ur Squamous Epith Cells (0-5) /hpf Salicylates mg/dL 1 Urine Opiates Screen Negative (NEGATIVE) Urine Methadone Screen Negative (NEGATIVE) Acetaminophen (10.0-30.0) ug/mL Ur Barbiturates Screen Negative (NEGATIVE) Ur Phencyclidine Scrn Negative (NEGATIVE) Ur Amphetamines Screen Negative (NEGATIVE) U Benzodiazepines Scrn Negative (NEGATIVE) U Oth Cocaine Metabols Negative (NEGATIVE) U Cannabinoids Screen Negative (NEGATIVE) Alcohol, Quantitative (0-10) mg/dl 08/25/17 08/25/17 08/25/17 Range/Units 23:11 22:20 22:20 WBC (4.8-10.8) K/uL RBC (4.40-5.90) Mil/uL Hgb (12.0-18.0) g/dL Hct (35.0-51.0) % MCV (80.0-94.0) fL MCH (27.0-31.0) pg MCHC (33.0-37.0) g/dL RDW (11.5-14.5) % Plt Count (130-400) K/uL MPV (7.2-11.7) fL Neut % (Auto) (50.0-75.0) % Lymph % (Auto) (20.0-40.0) % [place] % (Auto) (0.0-10.0) % Eos % (Auto) (0.0-4.0) % Baso % (Auto) (0.0-2.0) % Neut # (1.8-7.0) K/uL Lymph # (1.0-4.3) K/uL [place] # (0.0-0.8) K/uL Eos # (0.0-0.7) K/uL Baso # (0.0-0.2) K/uL PT (9.7-12.2) SECONDS INR APTT (21-34) SECONDS pO2 (30-55) mm/Hg VBG pH (7.32-7.43) VBG pCO2 (40-60) mmHg VBG HCO3 mmol/L VBG Total CO2 (22-28) mmol/L VBG O2 Sat (Calc) (40-65) % VBG Base Excess (0.0-2.0) mmol/L VBG Potassium (3.6-5.2) mmol/L Sodium (132-148) mmol/l Chloride (98-107) mmol/L Glucose (75-110) mg/dl Lactate (0.7-2.1) mmol/L Potassium (3.6-5.2) mmol/L Carbon Dioxide (22-30) mmol/L Anion Gap (10-20) BUN (9-20) mg/dL Creatinine (0.8-1.5) mg/dL Est GFR ( Amer) Est GFR (Non-Af Amer) POC Glucose (mg/dL) (65-110) mg/dL Random Glucose (75-110) mg/dL Hemoglobin A1c (4.2-6.5) % Serum Osmolality 285 (272-300) mosm/kg Calcium (8.6-10.4) mg/dl Phosphorus (2.5-4.5) mg/dL Magnesium (1.6-2.3) mg/dL Iron (49-181) ug/dL TIBC (250-450) ug/dL % Saturation (20-55) Total Bilirubin (0.2-1.3) mg/dL AST (17-59) U/L ALT (21-72) U/L Alkaline Phosphatase (38-126) U/L Ammonia (9-33) umol/L Troponin I (0.00-0.120) ng/mL Total Protein (6.3-8.3) g/dL Albumin (3.5-5.0) g/dL Globulin (2.2-3.9) gm/dL Albumin/Globulin Ratio (1.0-2.1) Lipase (23-300) U/L Vitamin B12 (239-931) pg/mL Folate ng/mL Venous Blood Potassium (3.6-5.2) mmol/L Urine Color Yellow (YELLOW) Urine Clarity Clear (Clear) Urine pH 6.0 (5.0-8.0) Ur Specific [place] 1.015 (1.003-1.030) Urine Protein Negative (NEGATIVE) mg/dL Urine Glucose (UA) Normal (Normal) mg/dL Urine Ketones Trace (NEGATIVE) mg/dL Urine Blood Negative (NEGATIVE) Urine Nitrate Negative (NEGATIVE) Urine Bilirubin Negative (NEGATIVE) Urine Urobilinogen 2.0 (0.2-1.0) mg/dL Ur Leukocyte Esterase Neg (Negative) Taylor/uL Urine WBC (Auto) 1 (0-5) /hpf Ur Squamous Epith Cells < 1 (0-5) /hpf Salicylates < 1.0 mg/dL 1 Urine Opiates Screen (NEGATIVE) Urine Methadone Screen (NEGATIVE) Acetaminophen < 10.0 L (10.0-30.0) ug/mL Ur Barbiturates Screen (NEGATIVE) Ur Phencyclidine Scrn (NEGATIVE) Ur Amphetamines Screen (NEGATIVE) U Benzodiazepines Scrn (NEGATIVE) U Oth Cocaine Metabols (NEGATIVE) U Cannabinoids Screen (NEGATIVE) Alcohol, Quantitative (0-10) mg/dl 08/25/17 08/25/17 08/25/17 Range/Units 22:20 22:20 22:20 WBC (4.8-10.8) K/uL RBC (4.40-5.90) Mil/uL Hgb (12.0-18.0) g/dL Hct (35.0-51.0) % MCV (80.0-94.0) fL MCH (27.0-31.0) pg MCHC (33.0-37.0) g/dL RDW (11.5-14.5) % Plt Count (130-400) K/uL MPV (7.2-11.7) fL Neut % (Auto) (50.0-75.0) % Lymph % (Auto) (20.0-40.0) % [place] % (Auto) (0.0-10.0) % Eos % (Auto) (0.0-4.0) % Baso % (Auto) (0.0-2.0) % Neut # (1.8-7.0) K/uL Lymph # (1.0-4.3) K/uL [place] # (0.0-0.8) K/uL Eos # (0.0-0.7) K/uL Baso # (0.0-0.2) K/uL PT 18.1 H (9.7-12.2) SECONDS INR 1.6 APTT 31 (21-34) SECONDS pO2 (30-55) mm/Hg VBG pH (7.32-7.43) VBG pCO2 (40-60) mmHg VBG HCO3 mmol/L VBG Total CO2 (22-28) mmol/L VBG O2 Sat (Calc) (40-65) % VBG Base Excess (0.0-2.0) mmol/L VBG Potassium (3.6-5.2) mmol/L Sodium 130 L (132-148) mmol/l Chloride 105 (98-107) mmol/L Glucose (75-110) mg/dl Lactate (0.7-2.1) mmol/L Potassium 4.1 (3.6-5.2) mmol/L Carbon Dioxide 18 L (22-30) mmol/L Anion Gap 11 (10-20) BUN 12 (9-20) mg/dL Creatinine 0.9 (0.8-1.5) mg/dL Est GFR ( Amer) > 60 Est GFR (Non-Af Amer) > 60 POC Glucose (mg/dL) (65-110) mg/dL Random Glucose 119 H (75-110) mg/dL Hemoglobin A1c (4.2-6.5) % Serum Osmolality (272-300) mosm/kg Calcium 7.5 L (8.6-10.4) mg/dl Phosphorus (2.5-4.5) mg/dL Magnesium 1.1 L (1.6-2.3) mg/dL Iron (49-181) ug/dL TIBC (250-450) ug/dL % Saturation (20-55) Total Bilirubin 2.1 H (0.2-1.3) mg/dL AST 67 H (17-59) U/L ALT 38 (21-72) U/L Alkaline Phosphatase 122 (38-126) U/L Ammonia 257 H D (9-33) umol/L Troponin I 0.0230 (0.00-0.120) ng/mL Total Protein 7.7 (6.3-8.3) g/dL Albumin 2.9 L (3.5-5.0) g/dL Globulin 4.8 H (2.2-3.9) gm/dL Albumin/Globulin Ratio 0.6 L (1.0-2.1) Lipase 111 (23-300) U/L Vitamin B12 (239-931) pg/mL Folate ng/mL Venous Blood Potassium (3.6-5.2) mmol/L Urine Color (YELLOW) Urine Clarity (Clear) Urine pH (5.0-8.0) Ur Specific [place] (1.003-1.030) Urine Protein (NEGATIVE) mg/dL Urine Glucose (UA) (Normal) mg/dL Urine Ketones (NEGATIVE) mg/dL Urine Blood (NEGATIVE) Urine Nitrate (NEGATIVE) Urine Bilirubin (NEGATIVE) Urine Urobilinogen (0.2-1.0) mg/dL Ur Leukocyte Esterase (Negative) Taylor/uL Urine WBC (Auto) (0-5) /hpf Ur Squamous Epith Cells (0-5) /hpf Salicylates mg/dL 1 Urine Opiates Screen (NEGATIVE) Urine Methadone Screen (NEGATIVE) Acetaminophen (10.0-30.0) ug/mL Ur Barbiturates Screen (NEGATIVE) Ur Phencyclidine Scrn (NEGATIVE) Ur Amphetamines Screen (NEGATIVE) U Benzodiazepines Scrn (NEGATIVE) U Oth Cocaine Metabols (NEGATIVE) U Cannabinoids Screen (NEGATIVE) Alcohol, Quantitative < 10 (0-10) mg/dl 08/25/17 08/25/17 Range/Units 22:20 22:00 WBC 3.2 L (4.8-10.8) K/uL RBC 3.96 L (4.40-5.90) Mil/uL Hgb 11.6 L (12.0-18.0) g/dL Hct 34.6 L (35.0-51.0) % MCV 87.4 (80.0-94.0) fL MCH 29.2 (27.0-31.0) pg MCHC 33.4 (33.0-37.0) g/dL RDW 20.8 H (11.5-14.5) % Plt Count 146 (130-400) K/uL MPV 8.1 (7.2-11.7) fL Neut % (Auto) 47.0 L (50.0-75.0) % Lymph % (Auto) 34.1 (20.0-40.0) % [place] % (Auto) 16.3 H (0.0-10.0) % Eos % (Auto) 2.0 (0.0-4.0) % Baso % (Auto) 0.6 (0.0-2.0) % Neut # 1.5 L (1.8-7.0) K/uL Lymph # 1.1 (1.0-4.3) K/uL [place] # 0.5 (0.0-0.8) K/uL Eos # 0.1 (0.0-0.7) K/uL Baso # 0.0 (0.0-0.2) K/uL PT (9.7-12.2) SECONDS INR APTT (21-34) SECONDS pO2 27 L (30-55) mm/Hg VBG pH 7.33 (7.32-7.43) VBG pCO2 37 L (40-60) mmHg VBG HCO3 19.0 mmol/L VBG Total CO2 20.6 L (22-28) mmol/L VBG O2 Sat (Calc) 52.7 (40-65) % VBG Base Excess -5.8 L (0.0-2.0) mmol/L VBG Potassium 3.9 (3.6-5.2) mmol/L Sodium 138.0 (132-148) mmol/l Chloride 108.0 H (98-107) mmol/L Glucose 114 H (75-110) mg/dl Lactate 2.7 H (0.7-2.1) mmol/L Potassium (3.6-5.2) mmol/L Carbon Dioxide (22-30) mmol/L Anion Gap (10-20) BUN (9-20) mg/dL Creatinine (0.8-1.5) mg/dL Est GFR ( Amer) Est GFR (Non-Af Amer) POC Glucose (mg/dL) (65-110) mg/dL Random Glucose (75-110) mg/dL Hemoglobin A1c (4.2-6.5) % Serum Osmolality (272-300) mosm/kg Calcium (8.6-10.4) mg/dl Phosphorus (2.5-4.5) mg/dL Magnesium (1.6-2.3) mg/dL Iron (49-181) ug/dL TIBC (250-450) ug/dL % Saturation (20-55) Total Bilirubin (0.2-1.3) mg/dL AST (17-59) U/L ALT (21-72) U/L Alkaline Phosphatase (38-126) U/L Ammonia (9-33) umol/L Troponin I (0.00-0.120) ng/mL Total Protein (6.3-8.3) g/dL Albumin (3.5-5.0) g/dL Globulin (2.2-3.9) gm/dL Albumin/Globulin Ratio (1.0-2.1) Lipase (23-300) U/L Vitamin B12 (239-931) pg/mL Folate ng/mL Venous Blood Potassium 3.9 (3.6-5.2) mmol/L Urine Color (YELLOW) Urine Clarity (Clear) Urine pH (5.0-8.0) Ur Specific [place] (1.003-1.030) Urine Protein (NEGATIVE) mg/dL Urine Glucose (UA) (Normal) mg/dL Urine Ketones (NEGATIVE) mg/dL Urine Blood (NEGATIVE) Urine Nitrate (NEGATIVE) Urine Bilirubin (NEGATIVE) Urine Urobilinogen (0.2-1.0) mg/dL Ur Leukocyte Esterase (Negative) [place]/uL Urine WBC (Auto) (0-5) /hpf Ur Squamous Epith Cells (0-5) /hpf Salicylates mg/dL 1 Urine Opiates Screen (NEGATIVE) Urine Methadone Screen (NEGATIVE) Acetaminophen (10.0-30.0) ug/mL Ur Barbiturates Screen (NEGATIVE) Ur Phencyclidine Scrn (NEGATIVE) Ur Amphetamines Screen (NEGATIVE) U Benzodiazepines Scrn (NEGATIVE) U Oth Cocaine Metabols (NEGATIVE) U Cannabinoids Screen (NEGATIVE) Alcohol, Quantitative (0-10) mg/dl Laboratory Results - last 24 hr 08/25/17 08/25/17 08/25/17 22:00 22:20 22:20 WBC 3.2 L RBC 3.96 L Hgb 11.6 L Hct 34.6 L MCV 87.4 MCH 29.2 MCHC 33.4 RDW 20.8 H Plt Count 146 MPV 8.1 Neut % (Auto) 47.0 L Lymph % (Auto) 34.1 [place] % (Auto) 16.3 H Eos % (Auto) 2.0 Baso % (Auto) 0.6 Neut # 1.5 L Lymph # 1.1 [place] # 0.5 Eos # 0.1 Baso # 0.0 PT 18.1 H INR 1.6 APTT 31 pO2 27 L VBG pH 7.33 VBG pCO2 37 L VBG HCO3 19.0 VBG Total CO2 20.6 L VBG O2 Sat (Calc) 52.7 VBG Base Excess -5.8 L VBG Potassium 3.9 Sodium 138.0 Chloride 108.0 H Glucose 114 H Lactate 2.7 H Potassium Carbon Dioxide Anion Gap BUN Creatinine Est GFR ( Amer) Est GFR (Non-Af Amer) POC Glucose (mg/dL) Random Glucose Hemoglobin A1c Serum Osmolality Calcium Phosphorus Magnesium Iron TIBC % Saturation Total Bilirubin AST ALT Alkaline Phosphatase Ammonia Troponin I Total Protein Albumin Globulin Albumin/Globulin Ratio Lipase Vitamin B12 Folate Venous Blood Potassium 3.9 Urine Color Urine Clarity Urine pH Ur Specific [place] Urine Protein Urine Glucose (UA) Urine Ketones Urine Blood Urine Nitrate Urine Bilirubin Urine Urobilinogen Ur Leukocyte Esterase Urine WBC (Auto) Ur Squamous Epith Cells Salicylates Urine Opiates Screen Urine Methadone Screen Acetaminophen Ur Barbiturates Screen Ur Phencyclidine Scrn Ur Amphetamines Screen U Benzodiazepines Scrn U Oth Cocaine Metabols U Cannabinoids Screen Alcohol, Quantitative 08/25/17 08/25/17 08/25/17 22:20 22:20 22:20 WBC RBC Hgb Hct MCV MCH MCHC RDW Plt Count MPV Neut % (Auto) Lymph % (Auto) [place] % (Auto) Eos % (Auto) Baso % (Auto) Neut # Lymph # [place] # Eos # Baso # PT INR APTT pO2 VBG pH VBG pCO2 VBG HCO3 VBG Total CO2 VBG O2 Sat (Calc) VBG Base Excess VBG Potassium Sodium 130 L Chloride 105 Glucose Lactate Potassium 4.1 Carbon Dioxide 18 L Anion Gap 11 BUN 12 Creatinine 0.9 Est GFR ( Amer) > 60 Est GFR (Non-Af Amer) > 60 POC Glucose (mg/dL) Random Glucose 119 H Hemoglobin A1c Serum Osmolality Calcium 7.5 L Phosphorus Magnesium 1.1 L Iron TIBC % Saturation Total Bilirubin 2.1 H AST 67 H ALT 38 Alkaline Phosphatase 122 Ammonia 257 H D Troponin I 0.0230 Total Protein 7.7 Albumin 2.9 L Globulin 4.8 H Albumin/Globulin Ratio 0.6 L Lipase 111 Vitamin B12 Folate Venous Blood Potassium Urine Color Urine Clarity Urine pH Ur Specific [place] Urine Protein Urine Glucose (UA) Urine Ketones Urine Blood Urine Nitrate Urine Bilirubin Urine Urobilinogen Ur Leukocyte Esterase Urine WBC (Auto) Ur Squamous Epith Cells Salicylates < 1.0 Urine Opiates Screen Urine Methadone Screen Acetaminophen < 10.0 L Ur Barbiturates Screen Ur Phencyclidine Scrn Ur Amphetamines Screen U Benzodiazepines Scrn U Oth Cocaine Metabols U Cannabinoids Screen Alcohol, Quantitative < 10 08/25/17 08/25/17 08/25/17 22:20 23:11 23:11 WBC RBC Hgb Hct MCV MCH MCHC RDW Plt Count MPV Neut % (Auto) Lymph % (Auto) [place] % (Auto) Eos % (Auto) Baso % (Auto) Neut # Lymph # [place] # Eos # Baso # PT INR APTT pO2 VBG pH VBG pCO2 VBG HCO3 VBG Total CO2 VBG O2 Sat (Calc) VBG Base Excess VBG Potassium Sodium Chloride Glucose Lactate Potassium Carbon Dioxide Anion Gap BUN Creatinine Est GFR ( Amer) Est GFR (Non-Af Amer) POC Glucose (mg/dL) Random Glucose Hemoglobin A1c Serum Osmolality 285 Calcium Phosphorus Magnesium Iron TIBC % Saturation Total Bilirubin AST ALT Alkaline Phosphatase Ammonia Troponin I Total Protein Albumin Globulin Albumin/Globulin Ratio Lipase Vitamin B12 Folate Venous Blood Potassium Urine Color Yellow Urine Clarity Clear Urine pH 6.0 Ur Specific [place] 1.015 Urine Protein Negative Urine Glucose (UA) Normal Urine Ketones Trace Urine Blood Negative Urine Nitrate Negative Urine Bilirubin Negative Urine Urobilinogen 2.0 Ur Leukocyte Esterase Neg Urine WBC (Auto) 1 Ur Squamous Epith Cells < 1 Salicylates Urine Opiates Screen Negative Urine Methadone Screen Negative Acetaminophen Ur Barbiturates Screen Negative Ur Phencyclidine Scrn Negative Ur Amphetamines Screen Negative U Benzodiazepines Scrn Negative U Oth Cocaine Metabols Negative U Cannabinoids Screen Negative Alcohol, Quantitative 08/26/17 08/26/17 08/26/17 06:46 06:46 06:46 WBC 3.5 L RBC 3.58 L Hgb 10.5 L Hct 31.0 L MCV 86.7 MCH 29.4 MCHC 33.9 RDW 19.8 H Plt Count 168 MPV 7.9 Neut % (Auto) 47.0 L Lymph % (Auto) 34.4 [place] % (Auto) 12.8 H Eos % (Auto) 4.0 Baso % (Auto) 1.8 Neut # 1.6 L Lymph # 1.2 [place] # 0.4 Eos # 0.1 Baso # 0.1 PT INR APTT pO2 VBG pH VBG pCO2 VBG HCO3 VBG Total CO2 VBG O2 Sat (Calc) VBG Base Excess VBG Potassium Sodium Chloride Glucose Lactate Potassium Carbon Dioxide Anion Gap BUN Creatinine Est GFR ( Amer) Est GFR (Non-Af Amer) POC Glucose (mg/dL) Random Glucose Hemoglobin A1c 4.4 Serum Osmolality Calcium Phosphorus Magnesium Iron 36 L TIBC 292 % Saturation 12 L Total Bilirubin AST ALT Alkaline Phosphatase Ammonia Troponin I Total Protein Albumin Globulin Albumin/Globulin Ratio Lipase Vitamin B12 Folate Venous Blood Potassium Urine Color Urine Clarity Urine pH Ur Specific [place] Urine Protein Urine Glucose (UA) Urine Ketones Urine Blood Urine Nitrate Urine Bilirubin Urine Urobilinogen Ur Leukocyte Esterase Urine WBC (Auto) Ur Squamous Epith Cells Salicylates Urine Opiates Screen Urine Methadone Screen Acetaminophen Ur Barbiturates Screen Ur Phencyclidine Scrn Ur Amphetamines Screen U Benzodiazepines Scrn U Oth Cocaine Metabols U Cannabinoids Screen Alcohol, Quantitative 08/26/17 08/26/17 08/26/17 06:46 06:59 08:56 WBC RBC Hgb Hct MCV MCH MCHC RDW Plt Count MPV Neut % (Auto) Lymph % (Auto) [place] % (Auto) Eos % (Auto) Baso % (Auto) Neut # Lymph # [place] # Eos # Baso # PT INR APTT pO2 VBG pH VBG pCO2 VBG HCO3 VBG Total CO2 VBG O2 Sat (Calc) VBG Base Excess VBG Potassium Sodium 135 Chloride 104 Glucose Lactate Potassium 4.0 Carbon Dioxide 24 Anion Gap 11 BUN 10 Creatinine 0.8 Est GFR ( Amer) > 60 Est GFR (Non-Af Amer) > 60 POC Glucose (mg/dL) 109 Random Glucose 99 Hemoglobin A1c Serum Osmolality Calcium 8.3 L Phosphorus 3.6 Magnesium 1.5 L Iron TIBC % Saturation Total Bilirubin 1.6 H AST 63 H ALT 39 Alkaline Phosphatase 121 Ammonia 127 H D Troponin I Total Protein 7.7 Albumin 2.9 L Globulin 4.7 H Albumin/Globulin Ratio 0.6 L Lipase Vitamin B12 955 H Folate 14.5 Venous Blood Potassium Urine Color Urine Clarity Urine pH Ur Specific [place] Urine Protein Urine Glucose (UA) Urine Ketones Urine Blood Urine Nitrate Urine Bilirubin Urine Urobilinogen Ur Leukocyte Esterase Urine WBC (Auto) Ur Squamous Epith Cells Salicylates Urine Opiates Screen Urine Methadone Screen Acetaminophen Ur Barbiturates Screen Ur Phencyclidine Scrn Ur Amphetamines Screen U Benzodiazepines Scrn U Oth Cocaine Metabols U Cannabinoids Screen Alcohol, Quantitative 08/26/17 08/26/17 11:13 14:08 WBC RBC Hgb Hct MCV MCH MCHC RDW Plt Count MPV Neut % (Auto) Lymph % (Auto) [place] % (Auto) Eos % (Auto) Baso % (Auto) Neut # Lymph # [place] # Eos # Baso # PT INR APTT pO2 VBG pH VBG pCO2 VBG HCO3 VBG Total CO2 VBG O2 Sat (Calc) VBG Base Excess VBG Potassium Sodium Chloride Glucose Lactate Potassium Carbon Dioxide Anion Gap BUN Creatinine Est GFR ( Amer) Est GFR (Non-Af Amer) POC Glucose (mg/dL) 84 Random Glucose Hemoglobin A1c Serum Osmolality Calcium Phosphorus Magnesium Iron TIBC % Saturation Total Bilirubin AST ALT Alkaline Phosphatase Ammonia 56 H D Troponin I Total Protein Albumin Globulin Albumin/Globulin Ratio Lipase Vitamin B12 Folate Venous Blood Potassium Urine Color Urine Clarity Urine pH Ur Specific [place] Urine Protein Urine Glucose (UA) Urine Ketones Urine Blood Urine Nitrate Urine Bilirubin Urine Urobilinogen Ur Leukocyte Esterase Urine WBC (Auto) Ur Squamous Epith Cells Salicylates Urine Opiates Screen Urine Methadone Screen Acetaminophen Ur Barbiturates Screen Ur Phencyclidine Scrn Ur Amphetamines Screen U Benzodiazepines Scrn U Oth Cocaine Metabols U Cannabinoids Screen Alcohol, Quantitative EKG/Cardiology Studies: Cardiology / EKG Studies 08/25/17 22:14 ELECTROCARDIOGRAM Stat Comment: Mode Of Transportation: BED Reason For Exam: [facility] Critical Care Progress Note - Nutrition Nutrition: Nutrition Category Date Time Status NPO Diet [DIET] Diets 08/26/17 Breakfast Active Attending/Attestation - Attestation I have personally seen and examined this patient.: Yes I have fully participated in the care of the patient.: Yes I have reviewed all pertinent clinical information: Yes Notes (Text): 08/26/17 17:40 patient seen and examined in the intensive care unit. Case discussed with house staff in the morning rounds. Patient admitted with hepatic encephalopa Continue lactulose and rifaximin Monitor ammonia level Continue ICU observation
[2017-08-26] MEDS ORDERED: LURASIDONE HCL 40 MG PO SCH (22:00)
[2017-08-27 06:34] LABS: BASO % 0.5 % (0.0-2.0); EOS # 0.1 K/uL (0.0-0.7); EOS % 1.8 % (0.0-4.0); HEMOGLOBIN 11.1 g/dL (12.0-18.0); LYMPH # 1.7 K/uL (1.0-4.3); LYMPH % 32.4 % (20.0-40.0); MEAN CELL VOLUME 87.2 fL (80.0-94.0); MEAN CORPUSCULAR HGB CONC 33.2 g/dL (33.0-37.0); MEAN PLATELET VOLUME 8.2 fL (7.2-11.7); MONO # 0.7 K/uL (0.0-0.8); MONO % 14.4 % (0.0-10.0); NEUT # 2.6 K/uL (1.8-7.0); NEUT % 50.9 % (50.0-75.0); NRBC % 0.1 % (0.0-2.0); RBC 3.85 Mil/uL (4.40-5.90); RED CELL DISTRIBUTION WIDTH 20.4 % (11.5-14.5); WHITE BLOOD COUNT 5.2 K/uL (4.8-10.8)
[2017-08-27 06:36] LABS: INR 1.6; PROTHROMBIN TIME 18.8 SECONDS (9.7-12.2)
[2017-08-27 06:49] LABS: ALB/GLOB RATIO 0.6 (1.0-2.1); ALT/SGPT 48 U/L (21-72); AST/SGOT 67 U/L (17-59); BLOOD UREA NITROGEN 10 mg/dL (9-20); CALCIUM 8.3 mg/dl (8.6-10.4); GFR AFRICAN-AMERICAN > 60; GFR NON-AFRICAN AMERICAN > 60; MAGNESIUM 1.2 mg/dL (1.6-2.3)
--- NOTE | 2017-08-27 09:45 | CP.PCM.PN ---
Subjective - Date & Time of Evaluation Date of Evaluation: 08/27/17 Time of Evaluation: 09:00 - Subjective Subjective: Hospitalist Progress Note Patient was seen and examined at 9:00 AM 08/26/17 ICU Bed 10 46 year old male (PMHx Hepatic Cirrhosis, Alcohol Abuse, HTN, HLD, Hyperbilirubinemia, Schizophrenia, PVD) who was brought into [facility] earlier this morning via EMS from a fpc for AMS. He has had multiple admissions to this institutions. He was found to have elevated Ammonia level. CT Head was unremarkable. Currently upon FULL ROS Nausea during the night but NO vomiting NO issues with eating breakfast this morning: NO N/V and NO abdominal pain He is moving his bowels multiple times NO burning/pain with urination NO headache NO new changes in vision/eye pain NO new changes in hearing/ear pain NO edema NO chest pain/palpitations NO SOB/Cough/Wheezing Exam: General: Patient is fully awake, He could only explain that he was coughing and that is all that he remembers, He asked why this keep happening to him and it was explained to him that he had Liver Failure that was leading to episodes of high ammonia. [employer] was used. He knows the date, president and where he is. I spoke with his Friend Tina via phone [phone] and provided her with information as to where patient was and to bring his cell phone as hien requested HEENT: NCA, PERRLA, EOMI, NO cervical lymphadenopathy, NO thyromegaly, Moist Mucous Membranes, NO pharyngeal erythema/exudate Cardio: NS1 and NS2, NO M/R/G Resp: CTA B/L, NO R/R/W GI: Central Obesity and therefore could not palpate liver or spleen, Soft, BSx4 , NO guarding/rebound tenderness Ext: Pulses are strong and equal, Capillary Refill is 2 seconds, NO edema Neuro: exam is not possible at this time Assessment and Plan: 1). Hepatic Encephalopathy/Alcoholic Cirrhosis/Elevated Bilirubin Hepatic Encephalopathy much improved as documented in GENERAL portion of exam above Lactulose 30 gm PO Q6H to treat the elevated Ammonia level which will be monitored: Multiple bowel movements as per patient Xifaxan 550 mg PO BID Lasix 40 mg PO 1x/day Spiranolactone 100 mg PO 1x/day Folic Acid 1 mg PO 1x/day MVI PO 1x/day Thiamine 100 mg PO 1x/day Patient was seen by GI on prior admissions Total Bilirubin is lower than it has been since last admission CT Liver 04/26/17: nodular hepatic contour consistent with cirrhosis, extensive hepatic steatosis, NO enhancing hepatic mass, splenomegaly, paraesophageal and upper abdominal varices 2). Hx HTN Lasix 40 mg PO 1x/day Spiranolactone 100 mg NG 1x/day 3). Hx HLD NOT on a statin as per home medication list 4). Questionable Hx of CHF? This as per admission H&P However 2D Echocardiogram done in January 2017 was unremarkable 5). Questionable Hx of COPD? 6). Hx Schizophrenia Lurasidone 40 mg PO HS 7). Hx PVD Pletal 100 mg PO 2x/day 8). Hx Anemia Likely Secondary to Iron Deficiency Iron Level is low Ferrous Sulfate Liquid 300 mg PO 2x/day 9). Hypomagnesemia Repleted upon admisison earlier this morning Monitor 10). Prophylaxis Pepcid 20 mg PO 2x/day Heparin 5,000 Units SC Q8H Zofran 4 mg IV Q6H PRN N/V Disposition: Patient to be transferred to the regular medical floor to be monitored and if there is continued improvement, then will discharge morning . Objective - Vital Signs/Intake and Output Vital Signs (last 24 hours): Temp Pulse Resp BP Pulse Ox 98.2 F 93 H 15 152/73 H 97 08/27/17 04:00 08/27/17 06:00 08/27/17 06:00 08/27/17 04:03 08/26/17 19:03 Intake and Output: 08/27/17 08/27/17 06:59 18:59 Intake Total 0 0 Output Total 0 0 Balance 0 0 - Medications Medications: Current Medications Aspirin (Aspirin Chewable) [address] [facility] Last Admin: 08/26/17 09:47 Dose: 81 mg Cilostazol (Pletal) [address] [facility] Last Admin: 08/26/17 18:00 Dose: 100 mg Famotidine (Pepcid) [address] [facility] Last Admin: 08/26/17 21:12 Dose: 20 mg Ferrous Sulfate (Feosol Liq) [address] [facility] Last Admin: 08/26/17 17:21 Dose: 300 mg Folic Acid (Folic Acid) [address] [facility] Last Admin: 08/26/17 09:47 Dose: 1 mg Furosemide (Lasix) [address] [facility] Last Admin: 08/26/17 09:47 Dose: 40 mg Heparin Sodium (Porcine) (Heparin) 5,[address] [facility] Last Admin: 08/27/17 07:00 Dose: 5,000 units Lactulose (Enulose) [address] [facility] Last Admin: 08/27/17 00:46 Dose: 30 gm Midodrine (Proamatine) [address] [facility] Last Admin: 08/26/17 17:22 Dose: 5 mg Multivitamins (Hexavitamin) [address] [facility] Last Admin: 08/26/17 11:50 Dose: 1 tab Ondansetron HCl (Zofran Inj) 4 mg IVP Q6H PRN PRN Reason: Nausea/Vomiting Last Admin: 08/26/17 16:10 Dose: 4 mg Rifaximin (Xifaxan) [address] [facility] Last Admin: 08/26/17 17:21 Dose: 550 mg Spironolactone (Aldactone) [address] [facility] Last Admin: 08/26/17 10:34 Dose: 100 mg Thiamine HCl (Vitamin B1 Tab) [address] [facility] Last Admin: 08/26/17 09:47 Dose: 100 mg - Labs Labs: 08/27/17 06:24 08/27/17 06:20 PT 18.8 SECONDS (9.7-12.2) H 08/27/17 06:24 INR 1.6 08/27/17 06:24 APTT 34 SECONDS (21-34) 08/27/17 06:24
[2017-08-27] MEDS: Multiple Vitamins Tab PO SCH (09:48)
[2017-08-27] MEDS: Ferrous Sulfate 300 mg/5 mL Liq UD PO SCH ×2 (09:51→17:30)
[2017-08-27] MEDS: Cilostazol 100 mg Tab UD PO SCH ×2 (13:44→22:26)
[2017-08-28 01:32] VITALS: RESP 20
[2017-08-28 07:56] VITALS: BP 128/71; PULSE 91; TEMP 98.5; O2SAT 99
[2017-08-28] MEDS: Multiple Vitamins Tab PO SCH (09:17)
[2017-08-28] MEDS: Cilostazol 100 mg Tab UD PO SCH (09:18)
[2017-08-28] MEDS: Ferrous Sulfate 300 mg/5 mL Liq UD PO SCH (09:28)
--- NOTE | 2017-08-28 11:31 | CP.PCM.DIS ---
<Lucy Rodas - Last Filed: 08/28/17 15:35> Provider - Provider Date of Admission: 08/25/17 23:55 Attending physician: Jerald Guillen MD Primary care physician: none Consults: none Time Spent in preparation of Discharge (in minutes): 35 Diagnosis - Discharge Diagnosis (1) Hepatic coma Status: Acute Priority: High (2) Acute hepatic encephalopathy Status: Acute (3) Ascites of liver Status: Acute Hospital Course - Lab Results Lab Results: Micro Results 08/27/17 16:07 Nose MRSA Culture - Final MRSA NOT DETECTED 08/26/17 00:51 Nose MRSA Culture (Admit) - Final MRSA NOT DETECTED Most Recent Lab Values WBC 5.2 K/uL (4.8-10.8) 08/27/17 06:24 RBC 3.85 Mil/uL (4.40-5.90) L 08/27/17 06:24 Hgb 11.1 g/dL (12.0-18.0) L 08/27/17 06:24 Hct 33.5 % (35.0-51.0) L 08/27/17 06:24 MCV 87.2 fL (80.0-94.0) 08/27/17 06:24 MCH 29.0 pg (27.0-31.0) 08/27/17 06:24 MCHC 33.2 g/dL (33.0-37.0) 08/27/17 06:24 RDW 20.4 % (11.5-14.5) H 08/27/17 06:24 Plt Count 183 K/uL (130-400) 08/27/17 06:24 MPV 8.2 fL (7.2-11.7) 08/27/17 06:24 Neut % (Auto) 50.9 % (50.0-75.0) 08/27/17 06:24 Lymph % (Auto) 32.4 % (20.0-40.0) 08/27/17 06:24 [place] % (Auto) 14.4 % (0.0-10.0) H 08/27/17 06:24 Eos % (Auto) 1.8 % (0.0-4.0) 08/27/17 06:24 Baso % (Auto) 0.5 % (0.0-2.0) 08/27/17 06:24 Neut # 2.6 K/uL (1.8-7.0) 08/27/17 06:24 Lymph # 1.7 K/uL (1.0-4.3) 08/27/17 06:24 [place] # 0.7 K/uL (0.0-0.8) 08/27/17 06:24 Eos # 0.1 K/uL (0.0-0.7) 08/27/17 06:24 Baso # 0.0 K/uL (0.0-0.2) 08/27/17 06:24 PT 18.8 SECONDS (9.7-12.2) H 08/27/17 06:24 INR 1.6 08/27/17 06:24 APTT 34 SECONDS (21-34) 08/27/17 06:24 pO2 27 mm/Hg (30-55) L 08/25/17 22:00 VBG pH 7.33 (7.32-7.43) 08/25/17 22:00 VBG pCO2 37 mmHg (40-60) L 08/25/17 22:00 VBG HCO3 19.0 mmol/L 08/25/17 22:00 VBG Total CO2 20.6 mmol/L (22-28) L 08/25/17 22:00 VBG O2 Sat (Calc) 52.7 % (40-65) 08/25/17 22:00 VBG Base Excess -5.8 mmol/L (0.0-2.0) L 08/25/17 22:00 VBG Potassium 3.9 mmol/L (3.6-5.2) 08/25/17 22:00 Sodium 138.0 mmol/l (132-148) 08/25/17 22:00 Chloride 108.0 mmol/L (98-107) H 08/25/17 22:00 Glucose 114 mg/dl (75-110) H 08/25/17 22:00 Lactate 2.7 mmol/L (0.7-2.1) H 08/25/17 22:00 Sodium 131 mmol/L (132-148) L 08/27/17 06:20 Potassium 3.7 mmol/L (3.6-5.2) 08/27/17 06:20 Chloride 105 mmol/L (98-107) 08/27/17 06:20 Carbon Dioxide 19 mmol/L (22-30) L 08/27/17 06:20 Anion Gap 11 (10-20) 08/27/17 06:20 BUN 10 mg/dL (9-20) 08/27/17 06:20 Creatinine 0.8 mg/dL (0.8-1.5) 08/27/17 06:20 Est GFR ( Amer) > 60 08/27/17 06:20 Est GFR (Non-Af Amer) > 60 08/27/17 06:20 POC Glucose (mg/dL) 110 mg/dL (65-110) 08/28/17 11:19 Random Glucose 80 mg/dL (75-110) 08/27/17 06:20 Hemoglobin A1c 4.4 % (4.2-6.5) 08/26/17 06:46 Serum Osmolality 285 mosm/kg (272-300) 08/25/17 22:20 Calcium 8.3 mg/dl (8.6-10.4) L 08/27/17 06:20 Phosphorus 4.3 mg/dL (2.5-4.5) 08/27/17 06:20 Magnesium 1.2 mg/dL (1.6-2.3) L 08/27/17 06:20 Iron 36 ug/dL (49-181) L 08/26/17 06:46 TIBC 292 ug/dL (250-450) 08/26/17 06:46 % Saturation 12 (20-55) L 08/26/17 06:46 Total Bilirubin 2.2 mg/dL (0.2-1.3) H 08/27/17 06:20 AST 67 U/L (17-59) H 08/27/17 06:20 ALT 48 U/L (21-72) 08/27/17 06:20 Alkaline Phosphatase 123 U/L (38-126) 08/27/17 06:20 Ammonia 49 umol/L (9-33) H 08/27/17 06:19 Troponin I 0.0230 ng/mL (0.00-0.120) 08/25/17 22:20 Total Protein 7.8 g/dL (6.3-8.3) 08/27/17 06:20 Albumin 3.0 g/dL (3.5-5.0) L 08/27/17 06:20 Globulin 4.8 gm/dL (2.2-3.9) H 08/27/17 06:20 Albumin/Globulin Ratio 0.6 (1.0-2.1) L 08/27/17 06:20 Lipase 111 U/L (23-300) 08/25/17 22:20 Vitamin B12 955 pg/mL (239-931) H 08/26/17 06:46 Folate 14.5 ng/mL 08/26/17 06:46 Venous Blood Potassium 3.9 mmol/L (3.6-5.2) 08/25/17 22:00 Urine Color Yellow (YELLOW) 08/25/17 23:11 Urine Clarity Clear (Clear) 08/25/17 23:11 Urine pH 6.0 (5.0-8.0) 08/25/17 23:11 Ur Specific [place] 1.015 (1.003-1.030) 08/25/17 23:11 Urine Protein Negative mg/dL (NEGATIVE) 08/25/17 23:11 Urine Glucose (UA) Normal mg/dL (Normal) 08/25/17 23:11 Urine Ketones Trace mg/dL (NEGATIVE) 08/25/17 23:11 Urine Blood Negative (NEGATIVE) 08/25/17 23:11 Urine Nitrate Negative (NEGATIVE) 08/25/17 23:11 Urine Bilirubin Negative (NEGATIVE) 08/25/17 23:11 Urine Urobilinogen 2.0 mg/dL (0.2-1.0) 08/25/17 23:11 Ur Leukocyte Esterase Neg Taylor/uL (Negative) 08/25/17 23:11 Urine WBC (Auto) 1 /hpf (0-5) 08/25/17 23:11 Ur Squamous Epith Cells < 1 /hpf (0-5) 08/25/17 23:11 Salicylates < 1.0 mg/dL 1 08/25/17 22:20 Urine Opiates Screen Negative (NEGATIVE) 08/25/17 23:11 Urine Methadone Screen Negative (NEGATIVE) 08/25/17 23:11 Acetaminophen < 10.0 ug/mL (10.0-30.0) L 08/25/17 22:20 Ur Barbiturates Screen Negative (NEGATIVE) 08/25/17 23:11 Ur Phencyclidine Scrn Negative (NEGATIVE) 08/25/17 23:11 Ur Amphetamines Screen Negative (NEGATIVE) 08/25/17 23:11 U Benzodiazepines Scrn Negative (NEGATIVE) 08/25/17 23:11 U Oth Cocaine Metabols Negative (NEGATIVE) 08/25/17 23:11 U Cannabinoids Screen Negative (NEGATIVE) 08/25/17 23:11 Alcohol, Quantitative < 10 mg/dl (0-10) 08/25/17 22:20 - Hospital Course Hospital Course: During hospital stay: please see assessments below. 46 year old male (PMHx Hepatic Cirrhosis, Alcohol Abuse, HTN, HLD, Hyperbilirubinemia, Schizophrenia, PVD) who was brought into [facility] earlier this morning via EMS from a longterm for AMS. He has had multiple admissions to this institutions. He was found to have elevated Ammonia level. CT Head was unremarkable. On admission: Patient is a 46M w/ PMH Cirrhosis, HTN, CHF, COPD, schizophrenia, depression brought in by EMS for AMS. Patient is only responsive to deep painful stimuli in ED. Labs in ED show an elevated ammonia level. The remainder of the history was unable to attain. EMS brought in the following medications: Omeprazole, metolazone and cilostazol. NGT was inserted in ED. Zofran and lactulose given. Seemed to open eyes and cough as exam progressed. ICU attending notified. Will go to ICU for closer monitoring for fear of aspiration. Protecting airway in ED. Assessment from his hospital stay are as listed: 1). Hepatic Encephalopathy/Alcoholic Cirrhosis/Elevated Bilirubin Hepatic Encephalopathy much improved as documented in GENERAL portion of exam above Lactulose 30 gm PO Q6H to treat the elevated Ammonia level which will be monitored: Multiple bowel movements as per patient Xifaxan 550 mg PO BID Lasix 40 mg PO 1x/day Spiranolactone 100 mg PO 1x/day Folic Acid 1 mg PO 1x/day MVI PO 1x/day Thiamine 100 mg PO 1x/day Patient was seen by GI on prior admissions Total Bilirubin is lower than it has been since last admission CT Liver 04/26/17: nodular hepatic contour consistent with cirrhosis, extensive hepatic steatosis, NO enhancing hepatic mass, splenomegaly, paraesophageal and upper abdominal varices 2). Hx HTN Lasix 40 mg PO 1x/day Spiranolactone 100 mg NG 1x/day 3). Hx HLD NOT on a statin as per home medication list 4). Questionable Hx of CHF? - no CHF This as per admission H&P However 2D Echocardiogram done in January 2017 was unremarkable 5). Questionable Hx of COPD? 6). Hx Schizophrenia Lurasidone 40 mg PO HS 7). Hx PVD Pletal 100 mg PO 2x/day 8). Hx Anemia Likely Secondary to Iron Deficiency Iron Level is low Ferrous Sulfate Liquid 300 mg PO 2x/day 9). Hypomagnesemia Repleted upon admisison earlier this morning Monitor 10). Prophylaxis Pepcid 20 mg PO 2x/day Heparin 5,000 Units SC Q8H Zofran 4 mg IV Q6H PRN N/V Patient did not want to wait for repeat labwork to result on the day of his discharge. Patient is stable for discharge home. Patient is to schedule a follow up appointment in the [facility] . He is to call for an appointment. Patient is to take follow medications: Aspirin 81 mg, one tab by mouth at breakfast, disp #30 Pletal 100mg mg, one tab by mouth at breakfast, disp #30 Ferrous Sulfate 325mg, one tab by mouth at breakfast, disp #30 Lasix 40mg, one tab by mouth at breakfast, disp #30 Lactulose 30mg , one tab by mouth twice a day at breakfast and at dinner, disp # 60 Midodrine 5mg , one tab by mouth three times a day at breakfast, lunch, and dinner disp #90 Multivitamin one by mouth daily Rifaximin 550mg, one tab by mouth twice a day at breakfast and dinner, disp #60 Aldactone 100mg, one tab by mouth at lunch, disp #30 Patient is to return if symptoms return. All instructions explained to the patient and he agrees. Discharge Exam - Head Exam Head Exam: ATRAUMATIC, NORMAL INSPECTION, NORMOCEPHALIC - Eye Exam Eye Exam: EOMI - Respiratory Exam Respiratory Exam: Clear to PA & Lateral, NORMAL BREATHING PATTERN. absent: Accessory Muscle Use, Respiratory Distress - Cardiovascular Exam Cardiovascular Exam: REGULAR RHYTHM, +S1, +S2. absent: Diastolic murmur, Irregular Rhythm, JVD, Systolic Murmur - GI/Abdominal Exam GI & Abdominal Exam: Distended, Normal Bowel Sounds, Soft. absent: Firm, Guarding, Tenderness Additional comments: central obesity - Extremities Exam Extremities exam: normal inspection - Back Exam Back exam: NORMAL INSPECTION - Neurological Exam Neurological exam: Alert, CN II-XII Intact, Normal Gait, Oriented x3 - Psychiatric Exam Psychiatric exam: Normal Affect, Normal Mood - Skin Skin Exam: Dry, Intact, Normal Color, Warm Discharge Plan - Discharge Medications Prescriptions: Aspirin [Aspirin Chewable] 81 mg PO DAILY #30 chew Cilostazol [Pletal] 100 mg PO BID #60 tab Ferrous Sulfate 325 mg PO DAILY #30 tablet Furosemide 40 mg PO DAILY #30 tablet Lactulose [Enulose] 30 gm PO BID #60 udc Midodrine [Proamatine] 5 mg PO TID #90 tab Multivitamins [Hexavitamin] 1 tab PO DAILY #30 tab rifAXIMin [Xifaxan] 550 mg PO BID #60 tab Spironolactone [Aldactone] 100 mg PO DAILY #30 tab - Follow Up Plan Condition: GOOD Disposition: HOME/ ROUTINE Instructions: Spironolactone (By mouth), Furosemide (By mouth), Aspirin (By mouth), Multivitamins, Adult Formula (By mouth), Lactulose (By mouth), Midodrine (By mouth), Cilostazol (By mouth), Rifaximin (By mouth), Heart Failure (DC), Fulminant Hepatic Failure (DC), Diabetes Mellitus Type 1 in Adults (DC) Additional Instructions: Patient is stable for discharge home. Patient is to schedule a follow up appointment in the [facility] at [facility] [phone]. He is to call for an appointment. Patient is to take follow medications: Aspirin 81 mg, one tab by mouth at breakfast, disp #30 Pletal 100mg mg, one tab by mouth at breakfast, disp #30 Ferrous Sulfate 325mg, one tab by mouth at breakfast, disp #30 Lasix 40mg, one tab by mouth at breakfast, disp #30 Lactulose 30mg , one tab by mouth twice a day at breakfast and at dinner, disp # 60 Midodrine 5mg , one tab by mouth three times a day at breakfast, lunch, and dinner disp #90 Multivitamin one by mouth daily Rifaximin 550mg, one tab by mouth twice a day at breakfast and dinner, disp #60 Aldactone 100mg, one tab by mouth at lunch, disp #30 Patient is to return if symptoms return. All instructions explained to the patient and he agrees. Referrals: [facility] [Outside] <Denys Flores - Last Filed: 08/28/17 19:44> Provider - Provider Date of Admission: 08/25/17 23:55 Attending physician: Jerald Guillen MD Hospital Course - Lab Results Lab Results: Micro Results 08/27/17 16:07 Nose MRSA Culture - Final MRSA NOT DETECTED 08/26/17 00:51 Nose MRSA Culture (Admit) - Final MRSA NOT DETECTED Most Recent Lab Values WBC 5.0 K/uL (4.8-10.8) 08/28/17 14:27 RBC 3.34 Mil/uL (4.40-5.90) L 08/28/17 14:27 Hgb 9.8 g/dL (12.0-18.0) L 08/28/17 14:27 Hct 29.3 % (35.0-51.0) L 08/28/17 14:27 MCV 87.5 fL (80.0-94.0) 08/28/17 14:27 MCH 29.4 pg (27.0-31.0) 08/28/17 14:27 MCHC 33.6 g/dL (33.0-37.0) 08/28/17 14:27 RDW 19.9 % (11.5-14.5) H 08/28/17 14:27 Plt Count 145 K/uL (130-400) 08/28/17 14:27 MPV 8.0 fL (7.2-11.7) 08/28/17 14:27 Neut % (Auto) 38.8 % (50.0-75.0) L 08/28/17 14:27 Lymph % (Auto) 39.0 % (20.0-40.0) 08/28/17 14:27 [place] % (Auto) 17.5 % (0.0-10.0) H 08/28/17 14:27 Eos % (Auto) 3.9 % (0.0-4.0) 08/28/17 14:27 Baso % (Auto) 0.8 % (0.0-2.0) 08/28/17 14:27 Neut # 1.9 K/uL (1.8-7.0) 08/28/17 14:27 Lymph # 2.0 K/uL (1.0-4.3) 08/28/17 14:27 [place] # 0.9 K/uL (0.0-0.8) H 08/28/17 14:27 Eos # 0.2 K/uL (0.0-0.7) 08/28/17 14:27 Baso # 0.0 K/uL (0.0-0.2) 08/28/17 14:27 PT 18.8 SECONDS (9.7-12.2) H 08/27/17 06:24 INR 1.6 08/27/17 06:24 APTT 34 SECONDS (21-34) 08/27/17 06:24 pO2 27 mm/Hg (30-55) L 08/25/17 22:00 VBG pH 7.33 (7.32-7.43) 08/25/17 22:00 VBG pCO2 37 mmHg (40-60) L 08/25/17 22:00 VBG HCO3 19.0 mmol/L 08/25/17 22:00 VBG Total CO2 20.6 mmol/L (22-28) L 08/25/17 22:00 VBG O2 Sat (Calc) 52.7 % (40-65) 08/25/17 22:00 VBG Base Excess -5.8 mmol/L (0.0-2.0) L 08/25/17 22:00 VBG Potassium 3.9 mmol/L (3.6-5.2) 08/25/17 22:00 Sodium 138.0 mmol/l (132-148) 08/25/17 22:00 Chloride 108.0 mmol/L (98-107) H 08/25/17 22:00 Glucose 114 mg/dl (75-110) H 08/25/17 22:00 Lactate 2.7 mmol/L (0.7-2.1) H 08/25/17 22:00 Sodium 126 mmol/L (132-148) L 08/28/17 14:27 Potassium 4.3 mmol/L (3.6-5.2) 08/28/17 14:27 Chloride 99 mmol/L (98-107) 08/28/17 14:27 Carbon Dioxide 22 mmol/L (22-30) 08/28/17 14:27 Anion Gap 9 (10-20) L 08/28/17 14:27 BUN 11 mg/dL (9-20) 08/28/17 14:27 Creatinine 0.9 mg/dL (0.8-1.5) 08/28/17 14:27 Est GFR ( Amer) > 60 08/28/17 14:27 Est GFR (Non-Af Amer) > 60 08/28/17 14:27 POC Glucose (mg/dL) 110 mg/dL (65-110) 08/28/17 11:19 Random Glucose 107 mg/dL (75-110) 08/28/17 14:27 Hemoglobin A1c 4.4 % (4.2-6.5) 08/26/17 06:46 Serum Osmolality 285 mosm/kg (272-300) 08/25/17 22:20 Calcium 7.6 mg/dl (8.6-10.4) L 08/28/17 14:27 Phosphorus 4.3 mg/dL (2.5-4.5) 08/27/17 06:20 Magnesium 1.1 mg/dL (1.6-2.3) L 08/28/17 14:27 Iron 36 ug/dL (49-181) L 08/26/17 06:46 TIBC 292 ug/dL (250-450) 08/26/17 06:46 % Saturation 12 (20-55) L 08/26/17 06:46 Total Bilirubin 1.5 mg/dL (0.2-1.3) H 08/28/17 14:27 AST 56 U/L (17-59) 08/28/17 14:27 ALT 38 U/L (21-72) 08/28/17 14:27 Alkaline Phosphatase 99 U/L (38-126) 08/28/17 14:27 Ammonia 44 umol/L (9-33) H 08/28/17 14:27 Troponin I 0.0230 ng/mL (0.00-0.120) 08/25/17 22:20 Total Protein 6.8 g/dL (6.3-8.3) 08/28/17 14:27 Albumin 2.5 g/dL (3.5-5.0) L 08/28/17 14:27 Globulin 4.3 gm/dL (2.2-3.9) H 08/28/17 14:27 Albumin/Globulin Ratio 0.6 (1.0-2.1) L 08/28/17 14:27 Lipase 111 U/L (23-300) 08/25/17 22:20 Vitamin B12 955 pg/mL (239-931) H 08/26/17 06:46 Folate 14.5 ng/mL 08/26/17 06:46 Venous Blood Potassium 3.9 mmol/L (3.6-5.2) 08/25/17 22:00 Urine Color Yellow (YELLOW) 08/25/17 23:11 Urine Clarity Clear (Clear) 08/25/17 23:11 Urine pH 6.0 (5.0-8.0) 08/25/17 23:11 Ur Specific [place] 1.015 (1.003-1.030) 08/25/17 23:11 Urine Protein Negative mg/dL (NEGATIVE) 08/25/17 23:11 Urine Glucose (UA) Normal mg/dL (Normal) 08/25/17 23:11 Urine Ketones Trace mg/dL (NEGATIVE) 08/25/17 23:11 Urine Blood Negative (NEGATIVE) 08/25/17 23:11 Urine Nitrate Negative (NEGATIVE) 08/25/17 23:11 Urine Bilirubin Negative (NEGATIVE) 08/25/17 23:11 Urine Urobilinogen 2.0 mg/dL (0.2-1.0) 08/25/17 23:11 Ur Leukocyte Esterase Neg [place]/uL (Negative) 08/25/17 23:11 Urine WBC (Auto) 1 /hpf (0-5) 08/25/17 23:11 Ur Squamous Epith Cells < 1 /hpf (0-5) 08/25/17 23:11 Salicylates < 1.0 mg/dL 1 08/25/17 22:20 Urine Opiates Screen Negative (NEGATIVE) 08/25/17 23:11 Urine Methadone Screen Negative (NEGATIVE) 08/25/17 23:11 Acetaminophen < 10.0 ug/mL (10.0-30.0) L 08/25/17 22:20 Ur Barbiturates Screen Negative (NEGATIVE) 08/25/17 23:11 Ur Phencyclidine Scrn Negative (NEGATIVE) 08/25/17 23:11 Ur Amphetamines Screen Negative (NEGATIVE) 08/25/17 23:11 U Benzodiazepines Scrn Negative (NEGATIVE) 08/25/17 23:11 U Oth Cocaine Metabols Negative (NEGATIVE) 08/25/17 23:11 U Cannabinoids Screen Negative (NEGATIVE) 08/25/17 23:11 Alcohol, Quantitative < 10 mg/dl (0-10) 08/25/17 22:20 Attending/Attestation - Attestation I have personally seen and examined this patient.: Yes I have fully participated in the care of the patient.: Yes I have reviewed all pertinent clinical information, including history, physical exam and plan: Yes Notes (Text): 08/28/17 19:43 Patient was seen and examined with the resident. Exam, assessment and plan, discharge instructions were thoroughly gone over with the resident. Denys Flores D.O.
[2017-08-28 14:30] LABS: BASO % 0.8 % (0.0-2.0); EOS # 0.2 K/uL (0.0-0.7); EOS % 3.9 % (0.0-4.0); HEMOGLOBIN 9.8 g/dL (12.0-18.0); MEAN CELL VOLUME 87.5 fL (80.0-94.0); MEAN CORPUSCULAR HEMOGLOBIN 29.4 pg (27.0-31.0); MEAN CORPUSCULAR HGB CONC 33.6 g/dL (33.0-37.0); MONO # 0.9 K/uL (0.0-0.8); MONO % 17.5 % (0.0-10.0); NEUT # 1.9 K/uL (1.8-7.0); NEUT % 38.8 % (50.0-75.0); NRBC % 0.1 % (0.0-2.0); RBC 3.34 Mil/uL (4.40-5.90); RED CELL DISTRIBUTION WIDTH 19.9 % (11.5-14.5)
[2017-08-28 15:04] LABS: ALB/GLOB RATIO 0.6 (1.0-2.1); ALBUMIN 2.5 g/dL (3.5-5.0); ALT/SGPT 38 U/L (21-72); AST/SGOT 56 U/L (17-59); BLOOD UREA NITROGEN 11 mg/dL (9-20); CALCIUM 7.6 mg/dl (8.6-10.4); GFR AFRICAN-AMERICAN > 60; GFR NON-AFRICAN AMERICAN > 60; MAGNESIUM 1.1 mg/dL (1.6-2.3)
--- NOTE | 2017-08-30 20:01 | CARD ---
APPROVED REPORT EKG Measurement Heart [id number] <Conclusion> Undetermined rhythm Prolonged QT Abnormal ECG
== END 2017-08-28 15:45 | disposition home or self-care (01) | DRG 432 ==
LOC: C.ER 21:44 → C.9I 23:55 → C.3T 08-27 14:45
PROVIDERS: ADMIT Internal Medicine; ATTEND Internal Medicine
DX: K70.41 Alcoholic hepatic failure with coma (principal); K70.31 Alcoholic cirrhosis of liver with ascites; E11.51 Type 2 diabetes mellitus with diabetic peripheral angiopathy without gangrene; I11.0 Hypertensive heart disease with heart failure; I50.9 Heart failure, unspecified; E87.1 Hypo-osmolality and hyponatremia; D72.819 Decreased white blood cell count, unspecified; E78.5 Hyperlipidemia, unspecified; E66.9 Obesity, unspecified; E83.42 Hypomagnesemia; F20.9 Schizophrenia, unspecified; F31.9 Bipolar disorder, unspecified; J44.9 Chronic obstructive pulmonary disease, unspecified; M19.90 Unspecified osteoarthritis, unspecified site; F10.20 Alcohol dependence, uncomplicated; Z87.891 Personal history of nicotine dependence; Z91.19 Patient's noncompliance with other medical treatment and regimen; Z90.49 Acquired absence of other specified parts of digestive tract

== ENCOUNTER 2017-09-05 03:18 | Inpatient (IN) | payer MEDICARE, OTHER ==
[2017-09-05 03:19] VITALS: BMI 44.4
--- NOTE | 2017-09-05 03:44 | C.PDOC ---
History Of Present Illness Patient presents with generalized malaise, nausea, insomnia. Pt was recently discharge from the hospital after being admitted for hepatic encephalopathy, alcoholic cirrhosis. No cp, palp, dyspnea, . Denies any alcohol intake Time Seen by Provider: 09/05/17 03:43 Chief Complaint (Nursing): Weakness/Neurological Deficit History Per: Patient History/Exam Limitations: no limitations Onset/Duration Of Symptoms: Days (3) Current Symptoms Are (Timing): Still Present Severity: Moderate Pain Scale Rating Of: 4 Past Medical History Reviewed: Historical Data, Nursing Documentation, Vital Signs Vital Signs: Last Vital Signs Temp 97.5 F L 09/05/17 03:34 Pulse 105 H 09/05/17 03:34 Resp 20 09/05/17 03:34 BP 136/84 09/05/17 03:34 Pulse Ox 100 09/05/17 04:26 - Medical History PMH: Anxiety, Arthritis, Asthma, Bipolar Disorder, CHF, COPD (ASTHMA), Depression, HTN, Schizophrenia Denies: Chronic Kidney Disease Surgical History: Appendectomy, Cholecystectomy Denies: CABG, Coronary Stent, Pacemaker, Tonsillectomy - [facility] Procedures FLUOROSCOPY OF RIGHT JUGULAR VEINS, GUIDANCE (11/14/15) INSERT INFUSION DEV IN R INT JUGULAR VEIN, PERC (11/14/15) INTRODUCTION OF SERUM/TOX/VACCINE INTO MUSCLE, PERC APPROACH (05/28/17) REMOVAL OF INFUSION DEVICE FROM UPPER VEIN, ADVERTISING COPY WRITER APPROACH (11/14/15) Family History: States: No Known Family Hx - Social History Hx Tobacco Use: No Hx Alcohol Use: Yes Hx Substance Use: No - Immunization History Hx Tetanus Toxoid Vaccination: No Hx Influenza Vaccination: Yes Hx Pneumococcal Vaccination: No Review Of Systems Constitutional: Negative for: Fever, Chills Eyes: Negative for: Redness ENT: Negative for: Throat Pain Cardiovascular: Negative for: Chest Pain Respiratory: Negative for: Shortness of Breath Gastrointestinal: Positive for: Nausea, Abdominal Pain Genitourinary: Negative for: Dysuria Musculoskeletal: Negative for: Back Pain Skin: Positive for: Other (skin chanhes legs) Neurological: Positive for: Weakness. Negative for: Confusion, Altered Mental Status Psych: Negative for: Anxiety Physical Exam - Physical Exam Appears: Non-toxic Skin: Warm, Dry, Other (vascular stasis skin chnages both legs) Head: Normacephalic Eye(s): bilateral: Normal Inspection Oral Mucosa: Moist Neck: Supple Chest: Symmetrical Cardiovascular: Rhythm Regular Respiratory: No Rales, No Rhonchi, No Wheezing Gastrointestinal/Abdominal: Soft, Tenderness (mild), Distention (morbidly obese) , No Guarding Back: No CVA Tenderness Extremity: No Tenderness Extremity: Bilateral: Atraumatic Pulses: Left Dorsalis Pedis: Normal, Right Dorsalis Pedis: Normal Neurological/Psych: Oriented x3, Normal Speech, Normal Cognition Gait: Steady ED Course And Treatment - Laboratory Results Result Diagrams: 09/05/17 04:02 09/05/17 04:02 ECG: Interpreted By Me, Viewed By Me ECG Rhythm: Sinus Rhythm (74), Nonspecific Changes O2 Sat by Pulse Oximetry: 100 Pulse Ox Interpretation: Normal - Radiology CXR: Interpreted by Me, Viewed By Me CXR Interpretation: Yes: Cardiomegaly. No: Infiltrates, Fracture Disposition Discussed With Dr.: Jake Collins Comment: accepted the pt on his service and took over the care at 5:15 AM Doctor Will See Patient In The: ED Counseled Patient/Family Regarding: Studies Performed, Diagnosis - Disposition Disposition: HOSPITALIZED Disposition Time: 03:44 Condition: FAIR Forms: [facility] (Sami) - POA Present On Arrival: Poor Glycemic Control - Clinical Impression Clinical Impression: Muscle weakness, Electrolyte abnormality, Venous stasis dermatitis of both lower extremities, History of alcohol abuse, Hyperammonemia Decision To Admit - Pt Status Changed To: Hospital Disposition Of: Inpatient - Admit Certification Admit to Inpatient:: After my assessment, the patient will require hospitalization for at least two midnights. This is because of the severity of symptoms shown, intensity of services needed, and/or the medical risk in this patient being treated as an outpatient. - InPatient: Physician Admission Certification: I certify that this patient requires 2 or more midnights of care for the following reason:: After my assessment, the patient will require hospitalization for at least two midnights. This is because of the severity of symptoms shown, intensity of services needed, and/or the medical risk in this patient being treated as an outpatient. - . Bed Request Type: Regular Admitting Physician: Jake Collins Patient Diagnosis: Muscle weakness, Electrolyte abnormality, Venous stasis dermatitis of both lower extremities, History of alcohol abuse, Hyperammonemia
[2017-09-05 04:02] LABS: SQUAMOUS EPITHIAL 3 /hpf (0-5); URINE BILIRUBIN NEGATIVE (NEGATIVE); URINE BLOOD NEGATIVE (NEGATIVE); URINE CLARITY Clear (Clear); URINE COLOR Amber (YELLOW); URINE GLUCOSE (UA) NORMAL (Normal); URINE LEUKOCYTE ESTERASE NEG Leu/uL (Negative); URINE NITRATE NEGATIVE (NEGATIVE); URINE PROTEIN NEGATIVE (NEGATIVE)
[2017-09-05 04:12] LABS: BASO % 0.7 % (0.0-2.0); EOS # 0.2 K/uL (0.0-0.7); EOS % 6.1 % (0.0-4.0); HEMOGLOBIN 12.1 g/dL (12.0-18.0); LYMPH # 1.5 K/uL (1.0-4.3); LYMPH % 46.3 % (20.0-40.0); MEAN CELL VOLUME 86.3 fL (80.0-94.0); MEAN CORPUSCULAR HEMOGLOBIN 29.6 pg (27.0-31.0); MEAN CORPUSCULAR HGB CONC 34.3 g/dL (33.0-37.0); MEAN PLATELET VOLUME 7.7 fL (7.2-11.7); MONO # 0.6 K/uL (0.0-0.8); MONO % 19.6 % (0.0-10.0); NEUT # 0.9 K/uL (1.8-7.0); NEUT % 27.3 % (50.0-75.0); NRBC % 0.2 % (0.0-2.0); RBC 4.08 Mil/uL (4.40-5.90); RED CELL DISTRIBUTION WIDTH 20.3 % (11.5-14.5); WHITE BLOOD COUNT 3.2 K/uL (4.8-10.8)
[2017-09-05 04:14] LABS: INR 1.7
[2017-09-05 04:23] LABS: VENOUS BLOOD GAS BASE EXCESS -2.3 mmol/L (0.0-2.0); VENOUS BLOOD GAS PCO2 33 mmHg (40-60); VENOUS BLOOD GAS PO2 60 mm/Hg (30-55); VENOUS BLOOD PH 7.42 (7.32-7.43)
[2017-09-05 04:27] LABS: B-TYPE NATRIURETIC PEPTIDE 38.1 pg/mL (0-450)
[2017-09-05 04:31] LABS: ALB/GLOB RATIO 0.6 (1.0-2.1); ALBUMIN 3.1 g/dL (3.5-5.0); ALT/SGPT 49 U/L (21-72); AST/SGOT 85 U/L (17-59); BLOOD UREA NITROGEN 12 mg/dL (9-20); CALCIUM 7.8 mg/dl (8.6-10.4); GFR AFRICAN-AMERICAN > 60; GFR NON-AFRICAN AMERICAN > 60; LIPASE 217 U/L (23-300); MAGNESIUM 1.3 mg/dL (1.6-2.3)
--- NOTE | 2017-09-05 06:24 | CP.PCM.HP ---
<Hussein Mata - Last Filed: 09/05/17 06:54> History of Present Illness - History of Present Illness History of Present Illness: PGY-1 H&P for Dr. Collins CC: malaise This is a 46 year old male with PMHx cirrhosis, HTN, HLD, PVD, anemia who presents complaining of general malaise for the past 3 days. Patient states that he doess not feel well. Patient states that he gradually felt weak and had decreased appetite. Patient is intermittently nauseous as well. Patient denies any exacerbating or relieving factors. Patient states that he is compliant with his medications since discharge. Patient denies fever, chills, chest pain, dyspnea, abdominal pain, dysuria. PMHx: cirrhosis, HTN, HLD, PVD, anemia PSHx: appendectomy Allergies: NKDA Social: Former smoker, quit less than a month ago. Used to smoke 1 pack every 3- 4 days for the past year. Former alcoholic, quit 9 months ago but has drank for as long as he can remember. Denies drugs. Family Hx: Father with heart problems. Mother with asthma Home meds: Aspirin 81 mg PO daily, Cilostazol 100 mg PO BID, Ferrous Sulfate 325 mg PO DAILY, Furosemide 40 mg PO DAILY, Lactulose 30 gm PO BID, Midodrine 5 mg PO TID, Multivitamins 1 tab PO DAILY, rifAXIMin 550 mg PO BID, Spironolactone 100 mg PO DAILY Present on Admission - Present on Admission Any Indicators Present on Admission: No Review of Systems - Constitutional Constitutional: absent: Chills, Fever - EENT Eyes: absent: Change in Vision Ears: absent: Decreased Hearing Nose/Mouth/Throat: absent: Nasal Congestion - Cardiovascular Cardiovascular: absent: Chest Pain - Respiratory Respiratory: absent: Cough, Dyspnea - Gastrointestinal Gastrointestinal: absent: Abdominal Pain, Constipation, Diarrhea, Nausea, Vomiting - Genitourinary Genitourinary: absent: Dysuria - Musculoskeletal Musculoskeletal: absent: Back Pain - Integumentary Integumentary: absent: Rash - Neurological Neurological: Dizziness, Weakness - Psychiatric Psychiatric: Change in Appetite (decreased). absent: Anxiety - Endocrine Endocrine: Fatigue. absent: Palpitations Past Patient History - Infectious Disease Hx of Infectious Diseases: None - Tetanus Immunizations Tetanus Immunization: Unknown - Past Medical History & Family History Past Medical History?: Yes - Past Social History Smoking Status: Former Smoker - CARDIAC Hx Congestive Heart Failure: Yes Hx Hypertension: Yes Hx Pacemaker: No - PULMONARY Hx Asthma: Yes Hx Chronic Obstructive Pulmonary Disease (COPD): Yes (ASTHMA) - NEUROLOGICAL Hx Neurological Disorder: No - HEENT Hx HEENT Problems: No - RENAL Hx Chronic Kidney Disease: No - ENDOCRINE/METABOLIC Hx Endocrine Disorders: No - HEMATOLOGICAL/ONCOLOGICAL Hx Blood Disorders: Yes Hx Cirrhosis: Yes - INTEGUMENTARY Hx Dermatological Problems: No - MUSCULOSKELETAL/RHEUMATOLOGICAL Hx Arthritis: Yes - GASTROINTESTINAL Hx Gastrointestinal Disorders: No - GENITOURINARY/GYNECOLOGICAL Hx Genitourinary Disorders: No - PSYCHIATRIC Hx Anxiety: Yes Hx Bipolar Disorder: Yes Hx Depression: Yes Hx Schizophrenia: Yes Hx Substance Use: No - SURGICAL HISTORY Hx Appendectomy: Yes Hx Cholecystectomy: Yes Hx Coronary Artery Bypass Graft: No Hx Coronary Stent: No Hx Tonsillectomy: No - ANESTHESIA Hx Anesthesia: Yes Hx Anesthesia Reactions: No Hx Malignant Hyperthermia: No Meds Allergies/Adverse Reactions: Allergies Allergy/AdvReac Type Severity Reaction Status Date / Time No Known Allergies Allergy Verified 05/28/17 11:04 Physical Exam - Constitutional Appears: No Acute Distress, Chronically Ill, Other (lethargic) - Head Exam Head Exam: ATRAUMATIC, NORMOCEPHALIC - Eye Exam Eye Exam: EOMI, PERRL - ENT Exam ENT Exam: Mucous Membranes Moist - Respiratory Exam Respiratory Exam: Clear to Auscultation Bilateral. absent: Rales, Rhonchi, Wheezes - Cardiovascular Exam Cardiovascular Exam: REGULAR RHYTHM, +S1, +S2 - GI/Abdominal Exam GI & Abdominal Exam: Distended, Normal Bowel Sounds, Soft. absent: Tenderness Additional comments: obese body habitus. surgical scar in LLQ - Extremities Exam Extremities exam: Positive for: pedal pulses present Additional comments: skin thickening in the lower extremities with non-pitting edema - Neurological Exam Neurological exam: Alert, CN II-XII Intact, Oriented x3 - Psychiatric Exam Psychiatric exam: Flat Affect - Skin Skin Exam: Dry, Warm Results - Vital Signs Recent Vital Signs: Last Vital Signs Temp 97.5 F L 09/05/17 03:34 Pulse 105 H 09/05/17 03:34 Resp 20 09/05/17 03:34 BP 136/84 09/05/17 03:34 Pulse Ox 100 09/05/17 05:20 - Labs Result Diagrams: 09/05/17 04:02 09/05/17 04:02 Labs: Laboratory Results - last 24 hr 09/05/17 09/05/17 09/05/17 03:57 04:02 04:02 WBC 3.2 L RBC 4.08 L Hgb 12.1 D Hct 35.2 MCV 86.3 MCH 29.6 MCHC 34.3 RDW 20.3 H Plt Count 162 MPV 7.7 Neut % (Auto) 27.3 L Lymph % (Auto) 46.3 H [place] % (Auto) 19.6 H Eos % (Auto) 6.1 H Baso % (Auto) 0.7 Neut # 0.9 L Lymph # 1.5 [place] # 0.6 Eos # 0.2 Baso # 0.0 PT 19.0 H INR 1.7 APTT 33 pO2 VBG pH VBG pCO2 VBG HCO3 VBG Total CO2 VBG O2 Sat (Calc) VBG Base Excess VBG Potassium Glucose Lactate Sodium Potassium Chloride Carbon Dioxide Anion Gap BUN Creatinine Est GFR ( Amer) Est GFR (Non-Af Amer) Random Glucose Calcium Magnesium Total Bilirubin AST ALT Alkaline Phosphatase Ammonia Total Creatine Kinase Troponin I NT-Pro-B Natriuret Pep Total Protein Albumin Globulin Albumin/Globulin Ratio Lipase Venous Blood Potassium Urine Color Aide Urine Clarity Clear Urine pH 5.0 Ur Specific Felda 1.020 Urine Protein Negative Urine Glucose (UA) Normal Urine Ketones Trace Urine Blood Negative Urine Nitrate Negative Urine Bilirubin Negative Urine Urobilinogen 2.0 Ur Leukocyte Esterase Neg Urine WBC (Auto) < 1 Urine RBC (Auto) 1 Ur Squamous Epith Cells 3 Alcohol, Quantitative Influenza Typ A,B (EIA) 09/05/17 09/05/17 09/05/17 04:02 04:02 04:19 WBC RBC Hgb Hct MCV MCH MCHC RDW Plt Count MPV Neut % (Auto) Lymph % (Auto) [place] % (Auto) Eos % (Auto) Baso % (Auto) Neut # Lymph # [place] # Eos # Baso # PT INR APTT pO2 60 H VBG pH 7.42 VBG pCO2 33 L VBG HCO3 23.0 VBG Total CO2 22.4 VBG O2 Sat (Calc) 95.3 H VBG Base Excess -2.3 L VBG Potassium 3.3 L Glucose 83 Lactate 1.0 Sodium 121 L 131.0 L Potassium 4.2 Chloride 94 L 104.0 Carbon Dioxide 23 Anion Gap 8 L BUN 12 Creatinine 0.9 Est GFR ( Amer) > 60 Est GFR (Non-Af Amer) > 60 Random Glucose 86 Calcium 7.8 L Magnesium 1.3 L Total Bilirubin 1.8 H AST 85 H D ALT 49 Alkaline Phosphatase 169 H D Ammonia 110 H D Total Creatine Kinase 38 L Troponin I 0.0250 NT-Pro-B Natriuret Pep 38.1 Total Protein 7.8 Albumin 3.1 L D Globulin 4.7 H Albumin/Globulin Ratio 0.6 L Lipase 217 Venous Blood Potassium 3.3 L Urine Color Urine Clarity Urine pH Ur Specific Felda Urine Protein Urine Glucose (UA) Urine Ketones Urine Blood Urine Nitrate Urine Bilirubin Urine Urobilinogen Ur Leukocyte Esterase Urine WBC (Auto) Urine RBC (Auto) Ur Squamous Epith Cells Alcohol, Quantitative < 10 Influenza Typ A,B (EIA) 09/05/17 04:55 WBC RBC Hgb Hct MCV MCH MCHC RDW Plt Count MPV Neut % (Auto) Lymph % (Auto) [place] % (Auto) Eos % (Auto) Baso % (Auto) Neut # Lymph # [place] # Eos # Baso # PT INR APTT pO2 VBG pH VBG pCO2 VBG HCO3 VBG Total CO2 VBG O2 Sat (Calc) VBG Base Excess VBG Potassium Glucose Lactate Sodium Potassium Chloride Carbon Dioxide Anion Gap BUN Creatinine Est GFR ( Amer) Est GFR (Non-Af Amer) Random Glucose Calcium Magnesium Total Bilirubin AST ALT Alkaline Phosphatase Ammonia Total Creatine Kinase Troponin I NT-Pro-B Natriuret Pep Total Protein Albumin Globulin Albumin/Globulin Ratio Lipase Venous Blood Potassium Urine Color Urine Clarity Urine pH Ur Specific Felda Urine Protein Urine Glucose (UA) Urine Ketones Urine Blood Urine Nitrate Urine Bilirubin Urine Urobilinogen Ur Leukocyte Esterase Urine WBC (Auto) Urine RBC (Auto) Ur Squamous Epith Cells Alcohol, Quantitative Influenza Typ A,B (EIA) Negative for flu a/b Assessment & Plan - Assessment and Plan (Free Text) Plan: Hepatic Encephalopathy Recent admission for hepatic coma Ammonia level 110, improved from prior admission Lactulose 30 mg PO Q6H continue home Rifaximin 550 mg BID ordered 1 dose of albumin while in ED Hyponatremia Fluid restrict 1L f/u urine and serum osmolalities f/u urine electrolytes f/u BMP Q4H Holding diuretics History of PVD continue home cilostazol 100 mg PO BID History of Anemia continue home Ferrous sulfate 325 mg PO daily Prophylactic Measure Heart healthy 2 gm sodium diet with fluid restriction Heparin 5000 units SC Q8 Pepcid 20 mg PO daily Zofran 4 mg IV prn nausea continue home Midodrine 5 mg PO TID Case DW Dr. Karina Mata PGY-1 <Jake Collins - Last Filed: 09/05/17 19:55> Results - Vital Signs Recent Vital Signs: Last Vital Signs Temp 98.6 F 09/05/17 17:06 Pulse 70 09/05/17 17:06 Resp 18 09/05/17 17:06 BP 128/69 09/05/17 17:06 Pulse Ox 100 09/05/17 17:06 - Labs Result Diagrams: 09/05/17 04:02 09/05/17 18:50 Labs: Laboratory Results - last 24 hr 09/05/17 09/05/17 09/05/17 03:57 04:02 04:02 WBC 3.2 L RBC 4.08 L Hgb 12.1 D Hct 35.2 MCV 86.3 MCH 29.6 MCHC 34.3 RDW 20.3 H Plt Count 162 MPV 7.7 Neut % (Auto) 27.3 L Lymph % (Auto) 46.3 H [place] % (Auto) 19.6 H Eos % (Auto) 6.1 H Baso % (Auto) 0.7 Neut # 0.9 L Lymph # 1.5 [place] # 0.6 Eos # 0.2 Baso # 0.0 PT 19.0 H INR 1.7 APTT 33 pO2 VBG pH VBG pCO2 VBG HCO3 VBG Total CO2 VBG O2 Sat (Calc) VBG Base Excess VBG Potassium Glucose Lactate Sodium Potassium Chloride Carbon Dioxide Anion Gap BUN Creatinine Est GFR ( Amer) Est GFR (Non-Af Amer) Random Glucose Serum Osmolality Calcium Magnesium Total Bilirubin AST ALT Alkaline Phosphatase Ammonia Total Creatine Kinase Troponin I NT-Pro-B Natriuret Pep Total Protein Albumin Globulin Albumin/Globulin Ratio Lipase Venous Blood Potassium Urine Color Aide Urine Clarity Clear Urine pH 5.0 Ur Specific Felda 1.020 Urine Protein Negative Urine Glucose (UA) Normal Urine Ketones Trace Urine Blood Negative Urine Nitrate Negative Urine Bilirubin Negative Urine Urobilinogen 2.0 Ur Leukocyte Esterase Neg Urine WBC (Auto) < 1 Urine RBC (Auto) 1 Ur Squamous Epith Cells 3 Urine Osmolality Ur Random Sodium Ur Random Potassium Alcohol, Quantitative Serum Ketones Influenza Typ A,B (EIA) 09/05/17 09/05/17 09/05/17 04:02 04:02 04:19 WBC RBC Hgb Hct MCV MCH MCHC RDW Plt Count MPV Neut % (Auto) Lymph % (Auto) [place] % (Auto) Eos % (Auto) Baso % (Auto) Neut # Lymph # [place] # Eos # Baso # PT INR APTT pO2 60 H VBG pH 7.42 VBG pCO2 33 L VBG HCO3 23.0 VBG Total CO2 22.4 VBG O2 Sat (Calc) 95.3 H VBG Base Excess -2.3 L VBG Potassium 3.3 L Glucose 83 Lactate 1.0 Sodium 121 L 131.0 L Potassium 4.2 Chloride 94 L 104.0 Carbon Dioxide 23 Anion Gap 8 L BUN 12 Creatinine 0.9 Est GFR ( Amer) > 60 Est GFR (Non-Af Amer) > 60 Random Glucose 86 Serum Osmolality Calcium 7.8 L Magnesium 1.3 L Total Bilirubin 1.8 H AST 85 H D ALT 49 Alkaline Phosphatase 169 H D Ammonia 110 H D Total Creatine Kinase 38 L Troponin I 0.0250 NT-Pro-B Natriuret Pep 38.1 Total Protein 7.8 Albumin 3.1 L D Globulin 4.7 H Albumin/Globulin Ratio 0.6 L Lipase 217 Venous Blood Potassium 3.3 L Urine Color Urine Clarity Urine pH Ur Specific Felda Urine Protein Urine Glucose (UA) Urine Ketones Urine Blood Urine Nitrate Urine Bilirubin Urine Urobilinogen Ur Leukocyte Esterase Urine WBC (Auto) Urine RBC (Auto) Ur Squamous Epith Cells Urine Osmolality Ur Random Sodium Ur Random Potassium Alcohol, Quantitative < 10 Serum Ketones Negative Influenza Typ A,B (EIA) 09/05/17 09/05/17 09/05/17 04:55 08:11 08:56 WBC RBC Hgb Hct MCV MCH MCHC RDW Plt Count MPV Neut % (Auto) Lymph % (Auto) [place] % (Auto) Eos % (Auto) Baso % (Auto) Neut # Lymph # [place] # Eos # Baso # PT INR APTT pO2 VBG pH VBG pCO2 VBG HCO3 VBG Total CO2 VBG O2 Sat (Calc) VBG Base Excess VBG Potassium Glucose Lactate Sodium Potassium Chloride Carbon Dioxide Anion Gap BUN Creatinine Est GFR ( Amer) Est GFR (Non-Af Amer) Random Glucose Serum Osmolality 270 L Calcium Magnesium Total Bilirubin AST ALT Alkaline Phosphatase Ammonia Total Creatine Kinase Troponin I NT-Pro-B Natriuret Pep Total Protein Albumin Globulin Albumin/Globulin Ratio Lipase Venous Blood Potassium Urine Color Urine Clarity Urine pH Ur Specific Felda Urine Protein Urine Glucose (UA) Urine Ketones Urine Blood Urine Nitrate Urine Bilirubin Urine Urobilinogen Ur Leukocyte Esterase Urine WBC (Auto) Urine RBC (Auto) Ur Squamous Epith Cells Urine Osmolality 514 Ur Random Sodium Ur Random Potassium Alcohol, Quantitative Serum Ketones Influenza Typ A,B (EIA) Negative for flu a/b 09/05/17 09/05/17 08:56 18:50 WBC RBC Hgb Hct MCV MCH MCHC RDW Plt Count MPV Neut % (Auto) Lymph % (Auto) [place] % (Auto) Eos % (Auto) Baso % (Auto) Neut # Lymph # [place] # Eos # Baso # PT INR APTT pO2 VBG pH VBG pCO2 VBG HCO3 VBG Total CO2 VBG O2 Sat (Calc) VBG Base Excess VBG Potassium Glucose Lactate Sodium 118 L* Potassium 4.1 Chloride 93 L Carbon Dioxide 24 Anion Gap 5 L BUN 15 Creatinine 0.9 Est GFR ( Amer) > 60 Est GFR (Non-Af Amer) > 60 Random Glucose 82 Serum Osmolality Calcium 7.6 L Magnesium Total Bilirubin AST ALT Alkaline Phosphatase Ammonia Total Creatine Kinase Troponin I NT-Pro-B Natriuret Pep Total Protein Albumin Globulin Albumin/Globulin Ratio Lipase Venous Blood Potassium Urine Color Urine Clarity Urine pH Ur Specific Felda Urine Protein Urine Glucose (UA) Urine Ketones Urine Blood Urine Nitrate Urine Bilirubin Urine Urobilinogen Ur Leukocyte Esterase Urine WBC (Auto) Urine RBC (Auto) Ur Squamous Epith Cells Urine Osmolality Ur Random Sodium 43 Ur Random Potassium 40.4 Alcohol, Quantitative Serum Ketones Influenza Typ A,B (EIA) Assessment & Plan - Date & Time Date: 09/05/17 (I have seen and examined the patient. I agree with the findings and plan of care as documented by Dr. Mata. Patient with hepatic encephalopathy. Prior episodes. Ammonia level higher on previous admission but patient still lethargic. Vitals stable. Lactulouse and monitor alertness. Also with hyponatremia. Fluid restriction. Check urine electrolytes, serum osmolality, and urine osmolality. Monitor for acute changes.) Time: 19:51 Attending/Attestation - Attestation I have personally seen and examined this patient.: Yes I have fully participated in the care of the patient.: Yes I have reviewed all pertinent clinical information: Yes
[2017-09-05] MEDS ORDERED: Albumin Human 25% (12.5 gm/50 ml) IV ONE (06:30)
--- NOTE | 2017-09-05 08:36 | RAD ---
Chest x-ray single frontal view History: Shortness of breath. Comparison: 08/25/2017 Findings: Mild venous congestion. Patchy increased markings at the left lung base. Cardiomegaly. Deformities of several left lateral ribs. Impression: Left basilar airspace opacity. Clinical correlation. Mild venous congestion. Cardiomegaly.
[2017-09-05] MEDS ORDERED: Magnesium Sulfate 1 gm in D5W 1 GM/100 ML BAG IVPB ONE ×2 (09:44→11:20)
--- NOTE | 2017-09-05 09:45 | CP.PCM.PN ---
Subjective - Date & Time of Evaluation Date of Evaluation: 09/05/17 Time of Evaluation: 09:42 - Subjective Subjective: PGY-[address] Huitron. No acute events noted overnight. Patient was seen and examined in the ED. Patient stated he's felt weak for the past few days. He did not endorse any abdominal pain. He stated he's been compliant with his medications. He denied chest pain, abdominal pain, fever, chills, vomiting, diarrhea. Objective - Vital Signs/Intake and Output Vital Signs (last 24 hours): Temp Pulse Resp BP Pulse Ox 98.5 F 90 16 117/57 L 97 09/05/17 07:09 09/05/17 07:09 09/05/17 07:09 09/05/17 07:09 09/05/17 07:09 - Medications Medications: Current Medications Aspirin (Aspirin Chewable) 81 mg PO DAILY NABIL Cilostazol (Pletal) 100 mg PO BID NABIL Famotidine (Pepcid) 20 mg PO DAILY NABIL Ferrous Sulfate (Feosol) 325 mg PO DAILY NABIL Heparin Sodium (Porcine) (Heparin) 5,000 units SC Q8 NABIL Lactulose (Enulose) 30 gm PO Q6H NABIL Midodrine (Proamatine) 5 mg PO TID NABIL Multivitamins (Hexavitamin) 1 tab PO DAILY NABIL Ondansetron HCl (Zofran Inj) 4 mg IVP Q6H PRN PRN Reason: Nausea/Vomiting Rifaximin (Xifaxan) 550 mg PO BID NABIL - Labs Labs: 09/05/17 04:02 09/05/17 04:02 PT 19.0 SECONDS (9.7-12.2) H 09/05/17 04:02 INR 1.7 09/05/17 04:02 APTT 33 SECONDS (21-34) 09/05/17 04:02 - Additional Findings Additional findings: - Constitutional Appears: No Acute Distress, Chronically Ill, Other (lethargic) - Head Exam Head Exam: ATRAUMATIC, NORMOCEPHALIC - Eye Exam Eye Exam: EOMI, PERRL - ENT Exam ENT Exam: Mucous Membranes Moist - Respiratory Exam Respiratory Exam: Clear to Auscultation Bilateral. absent: Rales, Rhonchi, Wheezes - Cardiovascular Exam Cardiovascular Exam: REGULAR RHYTHM, +S1, +S2 - GI/Abdominal Exam GI & Abdominal Exam: Distended, Normal Bowel Sounds, Soft. absent: Tenderness Additional comments: obese body habitus. surgical scar in LLQ - Extremities Exam Extremities exam: Positive for: pedal pulses present Additional comments: skin thickening in the lower extremities with non-pitting edema - Neurological Exam Neurological exam: Alert, CN II-XII Intact, Oriented x3 - Psychiatric Exam Psychiatric exam: Flat Affect - Skin Skin Exam: Dry, Warm Assessment and Plan - Assessment and Plan (Free Text) Assessment: Hepatic Encephalopathy GI consult, Dr Croonel Recent admission for hepatic coma Ammonia level on admission 110, improved from prior admission Lactulose 30 mg PO Q6H continue home Rifaximin 550 mg BID continue home Multivitamin ordered 1 dose of albumin while in ED CT Liver 04/26/17: nodular hepatic contour consistent with cirrhosis, extensive hepatic steatosis, NO enhancing hepatic mass, splenomegaly, paraesophageal and upper abdominal varices Hyponatremia Nephrology consult, Dr Garg Fluid restrict 1L Serum Osmolality 270, Urine osmolality 514, Ur Random Sodium 43 Holding diuretics 2/2 to low BP Hypotension Midodrine 5mg PO TID Albumin 25% 12.5g IV ONCE 09/05/17 History of PVD continue home cilostazol 100 mg PO BID continue home aspirin 81mg PO QD History of Anemia continue home Ferrous sulfate 325 mg PO daily Prophylactic Measure Heart healthy 2 gm sodium diet with fluid restriction Heparin 5000 units SC Q8 Pepcid 20 mg PO daily Zofran 4 mg IV prn nausea continue home Midodrine 5 mg PO TID
[2017-09-05] MEDS: Cilostazol 100 mg Tab UD PO SCH ×2 (10:47→18:17)
[2017-09-05] MEDS: Multiple Vitamins Tab PO SCH (11:15)
[2017-09-05 19:14] LABS: BLOOD UREA NITROGEN 15 mg/dL (9-20); CALCIUM 7.6 mg/dl (8.6-10.4); GFR AFRICAN-AMERICAN > 60; GFR NON-AFRICAN AMERICAN > 60
[2017-09-05] MEDS ORDERED: Sodium Chloride 0.9% 1,000 ML IV ONE (21:43)
[2017-09-05 22:38] LABS: OSMOLALITY,URINE 699 mosm/kg (300-1000)
[2017-09-05 22:50] VITALS: RESP 20
[2017-09-06 00:47] LABS: BLOOD UREA NITROGEN 14 mg/dL (9-20); CALCIUM 7.3 mg/dl (8.6-10.4); GFR AFRICAN-AMERICAN > 60; GFR NON-AFRICAN AMERICAN > 60
[2017-09-06] MEDS ORDERED: Sodium Chloride 0.9% 1,000 ML IV ONE (00:53)
--- NOTE | 2017-09-06 05:06 | CON ---
DATE: NEPHROLOGY CONSULTATION HISTORY OF PRESENT ILLNESS: A 46-year-old male with past medical history of alcoholic liver cirrhosis, hyperlipidemia, peripheral vascular disease, anemia, presented to ED yesterday complaining of generalized malaise for previous 3 days, found to be profoundly hyponatremic and subsequently admitted. Nephrology has been consulted for hyponatremia. Patient was discharged from [facility] on 08/28/2017 after being admitted for hepatic coma and hepatic encephalopathy. Patient, at that time, was found to have markedly elevated ammonia level and was treated with rifaximin and lactulose. Mental status improved markedly and he was discharged home on lactulose 30 mg b.i.d. as well as [id number] mg b.i.d.; patient was also discharged on diuretic with Lasix 40 mg daily, Aldactone 100 mg daily; patient was also taking metolazone 5 mg daily that he had from his PMD. Patient reports having had decreased appetite lately, reports having had isolated nausea and vomiting; has also been having loose bowel movements daily every time he eats; reports having had loose stools 3 times yesterday. Patient reports being adherent to all of his medications. He reports increased urination associated with his diuretics. Denies drinking excessive amounts of water and says that he drinks under 1 L of fluids daily. PAST MEDICAL HISTORY: As above. Patient with acute renal failure requiring hemodialysis in 10/2015; renal function subsequently recovered; also has CHF diagnosis with echo revealing preserved ejection fraction. SOCIAL HISTORY: Previous smoker, previous drinker of alcohol. FAMILY HISTORY: Father with heart problems, mother with asthma. REVIEW OF SYSTEMS: HEENT: No visual difficulty. Denies any sore throat or difficulty swallowing. RESPIRATORY: Reports having frequent cough lately. CARDIOVASCULAR: Reports shortness of breath that has improved since being admitted. Reports leg swelling, has improved considerably. GASTROINTESTINAL: As per HPI. GENITOURINARY: Denies any dysuria. MUSCULOSKELETAL: Denies any aches or pains. Denies taking any pain medications. PSYCHIATRIC: Denies depression. NEUROLOGIC: Denies any dizziness. SKIN: Denies any pruritus or rashes. PHYSICAL EXAMINATION: VITAL SIGNS: This evening, blood pressure 128/69, heart rate 70, respirations 18, temperature 98.6, O2 saturation 100% on room air. GENERAL: In no distress, conversing coherently in full sentences. HEENT: Moist mucous membrane, nonicteric. NECK: No obvious elevation of JVD. RESPIRATORY: Lungs are clear to auscultation bilaterally. No rales. No rhonchi. No wheezes. CARDIOVASCULAR: Heart sounds S1 and S2 normal. No murmurs. No gallops. No rubs. GASTROINTESTINAL: Abdomen soft, nontender, nondistended, obese. GENITOURINARY: No bladder distention. EXTREMITIES: Mild bilateral lower leg edema. SKIN: Warm. No cyanosis. NEUROLOGIC: A 5/5 bilateral upper and lower motor strength. No asterixis. No tremor of outstretched hands. PSYCHIATRIC: Normal mood. Normal affect. LABORATORY DATA: CBC: WBC 3.2, hemoglobin 12.1, hematocrit 35.2, platelets 162. Chemistry panel: Sodium 121, decreasing further to 118 this evening, potassium 4.2, chloride 94, bicarbonate 23, BUN 12, creatinine 0.9, glucose 86, calcium 7.8, magnesium 1.3. AST 85, ALT 49, ammonia 110, albumin 3.1. UA: Negative protein, negative blood. Urine osmolality 514. ASSESSMENT AND PLAN: 1. Hyponatremia. Patient on an extensive diuretic regimen with loop diuretic, potassium-sparing diuretic, and thiazide diuretic. Also on lactulose twice daily and reporting frequent loose stool. Most likely explanation of hyponatremia is hypovolemia. High urine osmolality can be seen in both hypovolemia and syndrome of inappropriate anti-diuretic hormone. We will need to repeat urine sodium as previous level was drawn while patient was still under the effect of diuretic. Checking orthostatic blood pressure. We will give 1 L normal saline bolus over 1 hour and subsequently repeat BMP; if still no improvement, we will give dose of tolvaptan 15 mg tonight. 2. Congestive heart failure with preserved ejection fraction and no diastolic dysfunction mentioned on last echo. Patient denies ever having had abdominal paracentesis, nevertheless, has been put on an extensive diuretic regimen to decrease recurrence of ascites; thiazide diuretic is not an optimal choice for patient who will always be prone to hyponatremia. After it has been ascertained that patient has been adequately volume replenished, can restart loop diuretic with Lasix 40 mg daily as well as an additional 20 mg in the p.m. as once daily dosing of diuretic is generally not sufficient to prevent edema formation and ascites (Since Lasix does not last the whole day, patient will become sodium avid once the effect of loop diuretic resolves). Hold off on Aldactone until serum sodium is close to 130. Should not be on metolazone. 3. Hypomagnesemia, likely secondary to diuretics, should replenish with p.o. magnesium oxide 400 mg b.i.d. as well as replaced on Slow-Mag; if replenishing via IV route, should replenish slowly to avoid mag wasting by kidneys (run at no faster than 1 gram per hour). 4. Liver cirrhosis with severe hepatic encephalopathy seen recently. Patient currently on lactulose 30 mg q. 6 hours as well as rifaximin. Should decrease lactulose dosing for now to q. 12 hours especially since patient is rather alert and showing no signs of hepatic encephalopathy and since we are trying to volume replenish him. 5. Pain control. Unclear why patient was given Toradol in ED; however should avoid NSAIDs as it will potentiate the affect of antidiuretic hormone and worsen hyponatremia. Thank you for this consult. We will be following up closely. Beny Garg MD
[2017-09-06 07:41] LABS: BASO % 0.4 % (0.0-2.0); EOS # 0.1 K/uL (0.0-0.7); EOS % 3.6 % (0.0-4.0); HEMOGLOBIN 10.9 g/dL (12.0-18.0); LYMPH # 1.4 K/uL (1.0-4.3); LYMPH % 49.1 % (20.0-40.0); MEAN CELL VOLUME 87.6 fL (80.0-94.0); MEAN CORPUSCULAR HEMOGLOBIN 29.1 pg (27.0-31.0); MEAN CORPUSCULAR HGB CONC 33.3 g/dL (33.0-37.0); MEAN PLATELET VOLUME 7.7 fL (7.2-11.7); MONO # 0.5 K/uL (0.0-0.8); MONO % 17.4 % (0.0-10.0); NEUT # 0.9 K/uL (1.8-7.0); NEUT % 29.5 % (50.0-75.0); RBC 3.74 Mil/uL (4.40-5.90); RED CELL DISTRIBUTION WIDTH 20.3 % (11.5-14.5); WHITE BLOOD COUNT 2.9 K/uL (4.8-10.8)
--- NOTE | 2017-09-06 07:48 | CP.PCM.PN ---
Subjective - Date & Time of Evaluation Date of Evaluation: 09/06/17 Time of Evaluation: 07:45 - Subjective Subjective: PGY-[address] Huitron. No acute events noted overnight. Patient stated he still felt weak. He said he slept well. He is still having loose stools. He reports increased urination due to his diuretics. He says he hasn't had nausea/vomiting since day before yesterday. He is tolerating his diet. He denies cp, sob, f/c. Objective - Vital Signs/Intake and Output Vital Signs (last 24 hours): Temp Pulse Resp BP Pulse Ox 98.4 F 77 20 147/71 99 09/06/17 05:30 09/06/17 05:30 09/06/17 05:30 09/06/17 05:30 09/06/17 05:30 Intake and Output: 09/06/17 09/06/17 06:59 18:59 Intake Total 2400 Output Total 1580 Balance 820 - Medications Medications: Current Medications Aspirin (Aspirin Chewable) 81 mg PO DAILY [facility] Last Admin: 09/05/17 11:15 Dose: 81 mg Cilostazol (Pletal) 100 mg PO BID [facility] Last Admin: 09/05/17 18:17 Dose: 100 mg Famotidine (Pepcid) 20 mg PO DAILY [facility] Last Admin: 09/05/17 10:47 Dose: 20 mg Ferrous Sulfate (Feosol) 325 mg PO DAILY [facility] Last Admin: 09/05/17 10:47 Dose: 325 mg Heparin Sodium (Porcine) (Heparin) 5,000 units SC Q8 [facility] Last Admin: 09/06/17 05:20 Dose: 5,000 units Lactulose (Enulose) 30 gm PO BID [facility] Magnesium Chloride (Slow-Mag) 64 mg PO DAILY [facility] Magnesium Oxide (Mag-Ox) 400 mg PO BID [facility] Midodrine (Proamatine) 5 mg PO TID [facility] Last Admin: 09/05/17 18:17 Dose: 5 mg Multivitamins (Hexavitamin) 1 tab PO DAILY [facility] Last Admin: 09/05/17 11:15 Dose: 1 tab Ondansetron HCl (Zofran Inj) 4 mg IVP Q6H PRN PRN Reason: Nausea/Vomiting Rifaximin (Xifaxan) 550 mg PO BID [facility] Last Admin: 09/05/17 18:17 Dose: 550 mg - Labs Labs: 09/05/17 04:02 09/05/17 23:57 PT 19.0 SECONDS (9.7-12.2) H 09/05/17 04:02 INR 1.7 09/05/17 04:02 APTT 39 SECONDS (21-34) H D 09/06/17 07:23 - Additional Findings Additional findings: - Constitutional Appears: No Acute Distress, Chronically Ill, Other (lethargic) - Head Exam Head Exam: ATRAUMATIC, NORMOCEPHALIC - Eye Exam Eye Exam: EOMI, PERRL - ENT Exam ENT Exam: Mucous Membranes Moist - Respiratory Exam Respiratory Exam: Clear to Auscultation Bilateral. absent: Rales, Rhonchi, Wheezes - Cardiovascular Exam Cardiovascular Exam: REGULAR RHYTHM, +S1, +S2 - GI/Abdominal Exam GI & Abdominal Exam: Distended, Normal Bowel Sounds, Soft. absent: Tenderness Additional comments: obese body habitus. surgical scar in LLQ - Extremities Exam Extremities exam: Positive for: pedal pulses present Additional comments: skin thickening in the lower extremities with non-pitting edema - Neurological Exam Neurological exam: Alert, CN II-XII Intact, Oriented x3 - Psychiatric Exam Psychiatric exam: Flat Affect - Skin Skin Exam: Dry, Warm Assessment and Plan - Assessment and Plan (Free Text) Assessment: Hepatic Encephalopathy GI consult, Dr Coronel * Extensive work up has been done previously but patient has not had outpatient follow up with GI Clinic Recent admission for hepatic coma Ammonia level on admission 110, improved from prior admission Lactulose 30 mg PO BID * Patient is alert and showing no signs of hepatic encephalopathy. Keep at BID since we are trying to volume replenish him. continue home Rifaximin 550 mg BID continue home Multivitamin 60g Protein restriction diet F/U ammonia ordered 1 dose of albumin while in ED CT Liver 04/26/17: nodular hepatic contour consistent with cirrhosis, extensive hepatic steatosis, NO enhancing hepatic mass, splenomegaly, paraesophageal and upper abdominal varices Hyponatremia Nephrology consult, Dr Garg Patient on extensive diuretic regimen, also lactulose and reports frequent stools - most likely explanation of hyponatremia is hypovolemia * Currently holding home Lasix and Aldactone and Metolazone * Thiazide diuretic is not an optimal choice for patient who is prone to hyponatremia Fluid restrict 1L Serum Osmolality 270, Urine osmolality 514, Ur Random Sodium 43 * Will need to repeat urine sodium as previous level was drawn while patient was still under effect of diuretic. Give 1L NS then repeat Ur Sodium. * repeat urine osmolality 157, repeat random urine sodium 18, urine chloride 30 Holding diuretics * After adequately volume replenished, can restart loop diuretic with lasix 40mg PO QD as well as additional 20mg in PM * Hold off aldactone until serum sodium is close to 130 * Should not be on home metolazone Avoid NSAIDs as it will potentiate the affect of antidiuretic hormone and worsen hyponatremia Alcoholic cirrhosis of liver with Ascites GI consult, Dr Coronel * Abstain from alcohol. * Consider surveillance EGD for varices when stable, this can be done as outpatient as well. F/U abdominal sonogram F/U AFP Hypotension Midodrine 5mg PO TID Albumin 25% 12.5g IV ONCE 09/05/17 Hypomagnesemia Likely 2/2 to diuretics Should replenish with PO Mag Ox 400mg BID * If replenishing via IV, should replenish slowly to avoid mag wasting by kidneys (run at no faster than 1g per hour) Slow-Mag 64mg PO QD Magnesium Oxide 400mg PO BID History of PVD continue home cilostazol 100 mg PO BID continue home aspirin 81mg PO QD History of Anemia continue home Ferrous sulfate 325 mg PO daily Prophylactic Measure Heart healthy - 60g Protein restriction diet Heparin 5000 units SC Q8 Pepcid 20 mg PO daily Zofran 4 mg IV prn nausea continue home Midodrine 5 mg PO TID
[2017-09-06] MEDS ORDERED: Sodium Chloride 0.9% 1,000 ML IV SCH ×2 (08:15→22:45)
[2017-09-06 08:23] LABS: ALB/GLOB RATIO 0.6 (1.0-2.1); ALBUMIN 2.8 g/dL (3.5-5.0); ALT/SGPT 55 U/L (21-72); AST/SGOT 57 U/L (17-59); BLOOD UREA NITROGEN 12 mg/dL (9-20); CALCIUM 7.8 mg/dl (8.6-10.4); GFR AFRICAN-AMERICAN > 60; GFR NON-AFRICAN AMERICAN > 60
[2017-09-06 09:12] LABS: OSMOLALITY,URINE 157 mosm/kg (300-1000)
--- NOTE | 2017-09-06 10:09 | CP.PCM.CON ---
History of Present Illness - History of Present Illness History of Present Illness: 46 yo male admitted with malaise and change in mental status. Reports no bleeding, melena or abdominal pain. Recent discharge from last week after admission for hepatic coma. Has known h/o alcholic cirrhosis, ascites, hepatic encephalopathy treated with Lactulose and Xifaxan as well as diuretics and diet. No N/V, bleeding or melena. NH3 level is 110 on admission. Review of Systems - Review of Systems Systems not reviewed;Unavailable: Language Barrier Past Patient History - Infectious Disease Hx of Infectious Diseases: None - Tetanus Immunizations Tetanus Immunization: Unknown - Past Medical History & Family History Past Medical History?: Yes - Past Social History Smoking Status: Former Smoker Alcohol: > 2 Drinks/Day Drugs: Denies - CARDIAC Hx Cardiac Disorders: Yes Hx Congestive Heart Failure: Yes Hx Hypertension: Yes Hx Pacemaker: No - PULMONARY Hx Respiratory Disorders: Yes Hx Asthma: Yes Hx Chronic Obstructive Pulmonary Disease (COPD): Yes (ASTHMA) - NEUROLOGICAL Hx Neurological Disorder: No - HEENT Hx HEENT Problems: No - RENAL Hx Chronic Kidney Disease: No - ENDOCRINE/METABOLIC Hx Endocrine Disorders: No - HEMATOLOGICAL/ONCOLOGICAL Hx Blood Disorders: Yes Hx Cirrhosis: Yes Hx Hepatitis A: No Hx Hepatitis B: No Hx Hepatitis C: No - INTEGUMENTARY Hx Dermatological Problems: No - MUSCULOSKELETAL/RHEUMATOLOGICAL Hx Musculoskeletal Disorders: Yes Hx Falls: No Other/Comment: WEAKNESS - GASTROINTESTINAL Hx Gastrointestinal Disorders: Yes Hx Bowel Surgery: No Hx Clostridium Difficile: No Hx Colitis: No Hx Colostomy: No Hx Constipation: No Hx Crohn's Disease: No Hx Diarrhea: Yes Hx Diverticulitis: No Hx Esophageal Varices: No Hx Fatty Liver Disease: No Hx Gall Bladder Disease: Yes Hx Gastritis: No Hx Gastroesophageal Reflux: No Hx Hemorrhoids: No Hx Ileostomy: No Hx Irritable Bowel: No Hx Liver Failure: Yes Hx Nausea: Yes Hx Pancreatitis: No HX Swallowing Problems: No Hx Ulcer: No Hx Vomiting: No - GENITOURINARY/GYNECOLOGICAL Hx Genitourinary Disorders: No - PSYCHIATRIC Hx Psychophysiologic Disorder: Yes Hx Anxiety: Yes Hx Bipolar Disorder: Yes Hx Depression: Yes Hx Schizophrenia: Yes Hx Substance Use: No - SURGICAL HISTORY Hx Surgeries: Yes Hx Appendectomy: Yes Hx Cholecystectomy: Yes Hx Coronary Artery Bypass Graft: No Hx Coronary Stent: No Hx Tonsillectomy: No - ANESTHESIA Hx Anesthesia: Yes Hx Anesthesia Reactions: No Hx Malignant Hyperthermia: No Has any member of the family had a problem w/ anesthesia?: No Meds Allergies/Adverse Reactions: Allergies Allergy/AdvReac Type Severity Reaction Status Date / Time No Known Allergies Allergy Verified 05/28/17 11:04 - Medications Medications: Current Medications Aspirin (Aspirin Chewable) 81 mg PO DAILY [facility] Last Admin: 09/05/17 11:15 Dose: 81 mg Cilostazol (Pletal) 100 mg PO BID [facility] Last Admin: 09/05/17 18:17 Dose: 100 mg Famotidine (Pepcid) 20 mg PO DAILY [facility] Last Admin: 09/05/17 10:47 Dose: 20 mg Ferrous Sulfate (Feosol) 325 mg PO DAILY [facility] Last Admin: 09/05/17 10:47 Dose: 325 mg Heparin Sodium (Porcine) (Heparin) 5,000 units SC Q8 [facility] Last Admin: 09/06/17 05:20 Dose: 5,000 units Sodium Chloride (Sodium Chloride 0.9%) 1,000 mls @ 125 mls/hr IV .Q8H [facility] Lactulose (Enulose) 30 gm PO BID [facility] Magnesium Chloride (Slow-Mag) 64 mg PO DAILY [facility] Magnesium Oxide (Mag-Ox) 400 mg PO BID [facility] Midodrine (Proamatine) 5 mg PO TID [facility] Last Admin: 09/05/17 18:17 Dose: 5 mg Multivitamins (Hexavitamin) 1 tab PO DAILY [facility] Last Admin: 09/05/17 11:15 Dose: 1 tab Ondansetron HCl (Zofran Inj) 4 mg IVP Q6H PRN PRN Reason: Nausea/Vomiting Rifaximin (Xifaxan) 550 mg PO BID [facility] Last Admin: 09/05/17 18:17 Dose: 550 mg Physical Exam - Constitutional Appears: No Acute Distress - Head Exam Head Exam: ATRAUMATIC, NORMOCEPHALIC - Eye Exam Eye Exam: EOMI, PERRL. absent: Scleral icterus - Respiratory Exam Respiratory Exam: Clear to Auscultation Bilateral, NORMAL BREATHING PATTERN - Cardiovascular Exam Cardiovascular Exam: REGULAR RHYTHM - GI/Abdominal Exam GI & Abdominal Exam: Normal Bowel Sounds, Soft. absent: Tenderness Additional comments: Morbidly obese, LLQ scar. No masses or tenderness - Rectal Exam Rectal Exam: Deferred - Extremities Exam Extremities exam: Positive for: pedal edema - Neurological Exam Neurological exam: Alert, Oriented x3 - Psychiatric Exam Psychiatric exam: Normal Affect, Normal Mood - Skin Skin Exam: Dry, Warm Results - Vital Signs Recent Vital Signs: Last Vital Signs Temp 98.2 F 09/06/17 07:59 Pulse 71 09/06/17 07:59 Resp 20 09/06/17 07:59 BP 139/79 09/06/17 07:59 Pulse Ox 99 09/06/17 07:59 - Labs Result Diagrams: 09/06/17 07:23 09/06/17 07:38 Labs: Laboratory Results - last 24 hr 09/05/17 09/05/17 09/05/17 08:56 18:50 22:22 WBC RBC Hgb Hct MCV MCH MCHC RDW Plt Count MPV Neut % (Auto) Lymph % (Auto) Potter % (Auto) Eos % (Auto) Baso % (Auto) Neut # Lymph # Potter # Eos # Baso # APTT Sodium 118 L* Potassium 4.1 Chloride 93 L Carbon Dioxide 24 Anion Gap 5 L BUN 15 Creatinine 0.9 Est GFR ( Amer) > 60 Est GFR (Non-Af Amer) > 60 Random Glucose 82 Calcium 7.6 L Total Bilirubin AST ALT Alkaline Phosphatase Total Protein Albumin Globulin Albumin/Globulin Ratio Urine Osmolality 699 Ur Random Sodium 15 Urine Chloride 30 L 09/05/17 09/06/17 09/06/17 23:57 07:16 07:23 WBC 2.9 L RBC 3.74 L Hgb 10.9 L Hct 32.7 L MCV 87.6 MCH 29.1 MCHC 33.3 RDW 20.3 H Plt Count 137 MPV 7.7 Neut % (Auto) 29.5 L Lymph % (Auto) 49.1 H Potter % (Auto) 17.4 H Eos % (Auto) 3.6 Baso % (Auto) 0.4 Neut # 0.9 L Lymph # 1.4 Potter # 0.5 Eos # 0.1 Baso # 0.0 APTT Sodium 119 L* Potassium 3.8 Chloride 93 L Carbon Dioxide 23 Anion Gap 8 L BUN 14 Creatinine 1.0 Est GFR ( Amer) > 60 Est GFR (Non-Af Amer) > 60 Random Glucose 98 Calcium 7.3 L Total Bilirubin AST ALT Alkaline Phosphatase Total Protein Albumin Globulin Albumin/Globulin Ratio Urine Osmolality 157 L Ur Random Sodium 18 Urine Chloride 09/06/17 09/06/17 07:23 07:38 WBC RBC Hgb Hct MCV MCH MCHC RDW Plt Count MPV Neut % (Auto) Lymph % (Auto) Potter % (Auto) Eos % (Auto) Baso % (Auto) Neut # Lymph # Potter # Eos # Baso # APTT 39 H D Sodium 125 L Potassium 4.4 Chloride 97 L Carbon Dioxide 24 Anion Gap 8 L BUN 12 Creatinine 0.8 Est GFR ( Amer) > 60 Est GFR (Non-Af Amer) > 60 Random Glucose 79 Calcium 7.8 L Total Bilirubin 2.4 H AST 57 ALT 55 Alkaline Phosphatase 127 H D Total Protein 7.1 Albumin 2.8 L Globulin 4.3 H Albumin/Globulin Ratio 0.6 L Urine Osmolality Ur Random Sodium Urine Chloride Assessment & Plan (1) Alcoholic cirrhosis of liver Assessment and Plan: Abstain from alcohol. consider surveillance EGD for varices when stable, this can be done as outpatient as well. Status: Acute (2) Ascites Assessment and Plan: Sonogram Lasix and Aldactone as tolerated from previous admission. Status: Acute (3) Acute hepatic encephalopathy Assessment and Plan: Continue Lactulose BID and Xifaxan BID as previous 60g Protein restriction diet Appears to be more alert and awake today. Exgtensive work up has been done previously but patient has not had outpatient follow up with GI Clinic Status: Acute
[2017-09-06] MEDS: Multiple Vitamins Tab PO SCH (10:15)
[2017-09-06] MEDS: Cilostazol 100 mg Tab UD PO SCH ×2 (10:52→17:13)
[2017-09-06 13:31] LABS: BLOOD UREA NITROGEN 11 mg/dL (9-20); CALCIUM 7.7 mg/dl (8.6-10.4); GFR AFRICAN-AMERICAN > 60; GFR NON-AFRICAN AMERICAN > 60
[2017-09-06] MEDS: Magnesium Chloride 64 mg ER Tab PO SCH (14:35)
--- NOTE | 2017-09-06 16:34 | US ---
HISTORY: cirrhosis, ascites r/o hepatoma COMPARISON: Liver protocol triple phase CT performed 02/08/17 TECHNIQUE: Sonographic evaluation of the abdomen. FINDINGS: LIVER: Measures 11.7 cm in sagittal dimension. Echogenic liver may be seen in setting of hepatic parenchymal disease or fatty infiltration. Nodular hepatic contour. No focal hepatic mass identified. Bidirectional flow within the main portal vein. No intrahepatic bile duct dilatation. GALLBLADDER: No gallstones. No gallbladder wall thickening. Negative sonographic Hernandez's sign as assessed by the assistant bookkeeper. COMMON BILE DUCT: Measures 8 mm. PANCREAS: Not well visualized. RIGHT KIDNEY: Measures 11.7 x 7.3 x 5.4 cm. No obstructing calculus or hydronephrosis identified. LEFT KIDNEY: Measures 12.7 x 5.0 x 5.2 cm. No obstructing calculus or hydronephrosis identified. SPLEEN: Measures approximately 16.2 cm. AORTA: Limited views appear unremarkable. IVC: Not well-visualized. OTHER FINDINGS: None. IMPRESSION: Diminutive liver. Nodular hepatic contour. Echogenic liver may be seen in setting of hepatic parenchymal disease or fatty infiltration. Splenomegaly. Bidirectional flow within the portal vein. Dilated common bile duct.
[2017-09-06] MEDS: Magnesium Oxide 400 mg Tab UD PO SCH (17:14)
--- NOTE | 2017-09-06 18:47 | CP.PCM.PN ---
Subjective - Date & Time of Evaluation Date of Evaluation: 09/06/17 Time of Evaluation: 11:00 - Subjective Subjective: Patient reports feeling better; denies shortness of breath; no nausea/vomiting; Objective - Vital Signs/Intake and Output Vital Signs (last 24 hours): Temp Pulse Resp BP Pulse Ox 98.5 F 76 20 114/69 97 09/06/17 16:35 09/06/17 16:35 09/06/17 16:35 09/06/17 16:35 09/06/17 16:35 Intake and Output: 09/06/17 09/06/17 06:59 18:59 Intake Total 2400 360 Output Total 1580 Balance 820 360 - Medications Medications: Current Medications Aspirin (Aspirin Chewable) 81 mg PO DAILY [facility] Last Admin: 09/06/17 10:15 Dose: 81 mg Cilostazol (Pletal) 100 mg PO BID [facility] Last Admin: 09/06/17 17:13 Dose: 100 mg Famotidine (Pepcid) 20 mg PO DAILY [facility] Last Admin: 09/06/17 10:15 Dose: 20 mg Ferrous Sulfate (Feosol) 325 mg PO DAILY [facility] Last Admin: 09/06/17 10:15 Dose: 325 mg Heparin Sodium (Porcine) (Heparin) 5,000 units SC Q8 [facility] Last Admin: 09/06/17 14:32 Dose: 5,000 units Lactulose (Enulose) 30 gm PO BID [facility] Last Admin: 09/06/17 17:14 Dose: 30 gm Magnesium Chloride (Slow-Mag) 64 mg PO DAILY [facility] Last Admin: 09/06/17 14:35 Dose: 64 mg Magnesium Oxide (Mag-Ox) 400 mg PO BID [facility] Last Admin: 09/06/17 17:14 Dose: 400 mg Midodrine (Proamatine) 5 mg PO TID [facility] Last Admin: 09/06/17 17:13 Dose: 5 mg Multivitamins (Hexavitamin) 1 tab PO DAILY [facility] Last Admin: 09/06/17 10:15 Dose: 1 tab Ondansetron HCl (Zofran Inj) 4 mg IVP Q6H PRN PRN Reason: Nausea/Vomiting Rifaximin (Xifaxan) 550 mg PO BID [facility] Last Admin: 09/06/17 17:13 Dose: 550 mg - Labs Labs: 09/06/17 07:23 09/06/17 13:05 PT 19.0 SECONDS (9.7-12.2) H 09/05/17 04:02 INR 1.7 09/05/17 04:02 APTT 39 SECONDS (21-34) H D 09/06/17 07:23 - Constitutional Appears: Non-toxic, No Acute Distress - Eye Exam Eye Exam: absent: Scleral icterus - ENT Exam ENT Exam: Mucous Membranes Moist - Respiratory Exam Respiratory Exam: Clear to Ausculation Bilateral. absent: Respiratory Distress - Cardiovascular Exam Cardiovascular Exam: RRR, +S1, +S2. absent: JVD - GI/Abdominal Exam GI & Abdominal Exam: Soft. absent: Distended, Tenderness - Extremities Exam Additional comments: minimal lower leg edema b/l; - Neurological Exam Neurological Exam: Alert, Awake - Psychiatric Exam Psychiatric exam: Normal Affect, Normal Mood. absent: Agitated - Skin Skin Exam: Warm. absent: Cyanosis Assessment and Plan (1) Hyponatremia Assessment & Plan: Hypovolemic hypovolemia indicated by history of extensive diuretic regimen and also by urine lytes with low urine Na and Cl, as well as high urine osm; responding well overnight to volume repletion (2L NS) with subsequent marked decrease of Ur osm indicating the hypovolemic stimulus for ADH release is decreasing; additional IVF being held to avoid rapid surge of serum Na; -repeating urine lytes and bmp this evening to determine if additional IVF needed; -continue to hold diuretics for now; Status: Acute (2) Volume depletion Assessment & Plan: Due to extensive diuretic regimen as well as GI losses from being on frequent lactulose; only ~10 point drop in systolic BP when checking orthostatics but may be masked by being on midodrine; would recommend to restart diuretics slowly (see below); Status: Acute (3) Alcoholic cirrhosis of liver Assessment & Plan: With resulting total body fluid overload previously seen due to propensity for salt retention; needs to be restarted on diuretics once hyponatremia stabilized ; recommend to avoid thiazides due to propensity to cause hyponatremia; should also start slowly on aldactone as this can also worsen hyponatremia; will benefit instead from twice daily dosing of lasix; Once stable: -restart lasix at 20 mg PO bid -restart aldactone at 25 mg PO bid Status: Chronic
[2017-09-06 19:41] LABS: BLOOD UREA NITROGEN 9 mg/dL (9-20); CALCIUM 6.9 mg/dl (8.6-10.4); GFR AFRICAN-AMERICAN > 60; GFR NON-AFRICAN AMERICAN > 60
[2017-09-06 22:45] LABS: OSMOLALITY,URINE 597 mosm/kg (300-1000)
--- NOTE | 2017-09-07 07:57 | CP.PCM.PN ---
Subjective - Date & Time of Evaluation Date of Evaluation: 09/07/17 Time of Evaluation: 07:42 - Subjective Subjective: PGY-[address] Huitron. No acute events noted overnight. Patient stated his feeling of weakness has improved. He said he slept well. His stools are more formed today. He reports increased urination due to his diuretics. He says he hasn't had nausea/vomiting since admission. He is tolerating his diet. He denies cp, sob, f/c. Objective - Vital Signs/Intake and Output Vital Signs (last 24 hours): Temp Pulse Resp BP Pulse Ox 97.6 F 80 20 108/64 100 09/07/17 00:00 09/07/17 00:00 09/07/17 00:00 09/07/17 00:00 09/07/17 00:00 Intake and Output: 09/07/17 09/07/17 06:59 18:59 Intake Total 1420 Output Total 1000 Balance 420 - Medications Medications: Current Medications Aspirin (Aspirin Chewable) 81 mg PO DAILY [facility] Last Admin: 09/06/17 10:15 Dose: 81 mg Cilostazol (Pletal) 100 mg PO BID [facility] Last Admin: 09/06/17 17:13 Dose: 100 mg Famotidine (Pepcid) 20 mg PO DAILY [facility] Last Admin: 09/06/17 10:15 Dose: 20 mg Ferrous Sulfate (Feosol) 325 mg PO DAILY [facility] Last Admin: 09/06/17 10:15 Dose: 325 mg Heparin Sodium (Porcine) (Heparin) 5,000 units SC Q8 [facility] Last Admin: 09/07/17 06:14 Dose: 5,000 units Lactulose (Enulose) 30 gm PO BID [facility] Last Admin: 09/06/17 17:14 Dose: 30 gm Magnesium Chloride (Slow-Mag) 64 mg PO DAILY [facility] Last Admin: 09/06/17 14:35 Dose: 64 mg Magnesium Oxide (Mag-Ox) 400 mg PO BID [facility] Last Admin: 09/06/17 17:14 Dose: 400 mg Midodrine (Proamatine) 5 mg PO TID [facility] Last Admin: 09/06/17 17:13 Dose: 5 mg Multivitamins (Hexavitamin) 1 tab PO DAILY [facility] Last Admin: 09/06/17 10:15 Dose: 1 tab Ondansetron HCl (Zofran Inj) 4 mg IVP Q6H PRN PRN Reason: Nausea/Vomiting Rifaximin (Xifaxan) 550 mg PO BID [facility] Last Admin: 09/06/17 17:13 Dose: 550 mg - Labs Labs: 09/06/17 07:23 09/06/17 19:25 PT 19.0 SECONDS (9.7-12.2) H 09/05/17 04:02 INR 1.7 09/05/17 04:02 APTT 39 SECONDS (21-34) H D 09/06/17 07:23 - Additional Findings Additional findings: - Constitutional Appears: No Acute Distress, Chronically Ill, Other (lethargic) - Head Exam Head Exam: ATRAUMATIC, NORMOCEPHALIC - Eye Exam Eye Exam: EOMI, PERRL - ENT Exam ENT Exam: Mucous Membranes Moist - Respiratory Exam Respiratory Exam: Clear to Auscultation Bilateral. absent: Rales, Rhonchi, Wheezes - Cardiovascular Exam Cardiovascular Exam: REGULAR RHYTHM, +S1, +S2 - GI/Abdominal Exam GI & Abdominal Exam: Distended, Normal Bowel Sounds, Soft. absent: Tenderness Additional comments: obese body habitus. surgical scar in LLQ - Extremities Exam Extremities exam: Positive for: pedal pulses present Additional comments: skin thickening in the lower extremities with non-pitting edema - Neurological Exam Neurological exam: Alert, CN II-XII Intact, Oriented x3 - Psychiatric Exam Psychiatric exam: Flat Affect - Skin Skin Exam: Dry, Warm Assessment and Plan - Assessment and Plan (Free Text) Assessment: Hepatic Encephalopathy GI consult, Dr Coronel * Extensive work up has been done previously but patient has not had outpatient follow up with GI Clinic Recent admission for hepatic coma Ammonia level on admission 110, improved from prior admission, follow-up ammonia 41 Lactulose 30 mg PO BID * Patient is alert and showing no signs of hepatic encephalopathy. Keep at BID since we are trying to volume replenish him. continue home Rifaximin 550 mg BID continue home Multivitamin Mural Artist to instruct on 50-[address] Liver 04/26/17: nodular hepatic contour consistent with cirrhosis, extensive hepatic steatosis, NO enhancing hepatic mass, splenomegaly, paraesophageal and upper abdominal varices Hyponatremia Nephrology consult, Dr Garg Patient on extensive diuretic regimen, also lactulose and reports frequent stools - most likely explanation of hyponatremia is hypovolemia * Currently holding home Lasix and Aldactone and Metolazone * Thiazide diuretic is not an optimal choice for patient who is prone to hyponatremia Fluid restrict 1L Serum Osmolality 270, Urine osmolality 514, Ur Random Sodium 43 * Will need to repeat urine sodium as previous level was drawn while patient was still under effect of diuretic. Give 1L NS then repeat Ur Sodium. * repeat urine osmolality 157, repeat random urine sodium 18, urine chloride 30 Holding diuretics * After adequately volume replenished and stable, restart lasix at 20 mg PO bid and restart aldactone at 25 mg PO bid * Should not be on home metolazone due to propensity to cause hyponatremia Avoid NSAIDs as it will potentiate the affect of antidiuretic hormone and worsen hyponatremia Tolvaptan 15mg PO ONCE 09/07/18 Alcoholic cirrhosis of liver with Ascites GI consult, Dr Coronel * Abstain from alcohol. * Consider surveillance EGD for varices when stable, this can be done as outpatient as well. Abdominal sonogram 09/06/17: Diminutive liver. Nodular hepatic contour. Echogenic liver may be seen in setting of hepatic parenchymal disease or fatty infiltration. Splenomegaly. Bidirectional flow within portal vein. Dilated common bile duct. AFP 2.5 NORMAL Hypotension Midodrine 5mg PO TID Albumin 25% 12.5g IV ONCE 09/05/17 Hypomagnesemia Likely 2/2 to diuretics Should replenish with PO Mag Ox 400mg BID * If replenishing via IV, should replenish slowly to avoid mag wasting by kidneys (run at no faster than 1g per hour) Slow-Mag 64mg PO QD Magnesium Oxide 400mg PO BID History of PVD continue home cilostazol 100 mg PO BID continue home aspirin 81mg PO QD History of Anemia continue home Ferrous sulfate 325 mg PO daily Prophylactic Measure Heart healthy - 60g Protein restriction diet Heparin 5000 units SC Q8 Pepcid 20 mg PO daily Zofran 4 mg IV prn nausea continue home Midodrine 5 mg PO TID Disposition: Patient will need to see a GI for EGD outpatient. Patient will need to follow-up with a broomcorn grader outpatient.
[2017-09-07 08:13] LABS: BASO % 0.6 % (0.0-2.0); EOS # 0.1 K/uL (0.0-0.7); EOS % 4.3 % (0.0-4.0); HEMOGLOBIN 10.5 g/dL (12.0-18.0); LYMPH # 1.4 K/uL (1.0-4.3); LYMPH % 48.1 % (20.0-40.0); MEAN CELL VOLUME 87.4 fL (80.0-94.0); MEAN CORPUSCULAR HEMOGLOBIN 29.3 pg (27.0-31.0); MEAN CORPUSCULAR HGB CONC 33.5 g/dL (33.0-37.0); MEAN PLATELET VOLUME 7.8 fL (7.2-11.7); MONO # 0.6 K/uL (0.0-0.8); MONO % 20.5 % (0.0-10.0); NEUT # 0.8 K/uL (1.8-7.0); NEUT % 26.5 % (50.0-75.0); NRBC % 0.1 % (0.0-2.0); PLATELET COUNT 129 K/uL (130-400); RBC 3.58 Mil/uL (4.40-5.90); RED CELL DISTRIBUTION WIDTH 19.5 % (11.5-14.5)
[2017-09-07 09:26] LABS: ALB/GLOB RATIO 0.6 (1.0-2.1); ALBUMIN 2.7 g/dL (3.5-5.0); ALT/SGPT 54 U/L (21-72); AST/SGOT 55 U/L (17-59); BLOOD UREA NITROGEN 7 mg/dL (9-20); CALCIUM 7.6 mg/dl (8.6-10.4); GFR AFRICAN-AMERICAN > 60; GFR NON-AFRICAN AMERICAN > 60
[2017-09-07 09:28] LABS: EOSINOPHIL 5 % (0-4); LYMPHOCYTE 46 % (20-40); MONOCYTE 14 % (0-10); NEUTROPHIL 35 % (50-75); PLATELET ESTIMATE SLIGHTLY DECREASED (NORMAL); TOTAL CELLS COUNTED 100
[2017-09-07 09:29] LABS: ANISOCYTOSIS SLIGHT; HYPOCHROMIC SLIGHT; POIKILOCYTOSIS SLIGHT; TARGET CELLS SLIGHT
[2017-09-07 09:30] LABS: OVALOCYTES SLIGHT; TEARDROP CELLS SLIGHT
--- NOTE | 2017-09-07 09:59 | CP.PCM.PN ---
Subjective - Date & Time of Evaluation Date of Evaluation: 09/07/17 Time of Evaluation: 09:56 - Subjective Subjective: No complaints of bleeding or confusion, fatigue NH3=40 H/H stable Objective - Vital Signs/Intake and Output Vital Signs (last 24 hours): Temp Pulse Resp BP Pulse Ox 98.6 F 86 20 105/67 97 09/07/17 08:41 09/07/17 08:41 09/07/17 08:41 09/07/17 08:41 09/07/17 08:41 Intake and Output: 09/07/17 09/07/17 06:59 18:59 Intake Total 1420 Output Total 1000 Balance 420 - Medications Medications: Current Medications Aspirin (Aspirin Chewable) 81 mg PO DAILY [facility] Last Admin: 09/06/17 10:15 Dose: 81 mg Cilostazol (Pletal) 100 mg PO BID [facility] Last Admin: 09/06/17 17:13 Dose: 100 mg Famotidine (Pepcid) 20 mg PO DAILY [facility] Last Admin: 09/06/17 10:15 Dose: 20 mg Ferrous Sulfate (Feosol) 325 mg PO DAILY [facility] Last Admin: 09/06/17 10:15 Dose: 325 mg Heparin Sodium (Porcine) (Heparin) 5,000 units SC Q8 [facility] Last Admin: 09/07/17 06:14 Dose: 5,000 units Lactulose (Enulose) 30 gm PO BID [facility] Last Admin: 09/06/17 17:14 Dose: 30 gm Magnesium Chloride (Slow-Mag) 64 mg PO DAILY [facility] Last Admin: 09/06/17 14:35 Dose: 64 mg Magnesium Oxide (Mag-Ox) 400 mg PO BID [facility] Last Admin: 09/06/17 17:14 Dose: 400 mg Midodrine (Proamatine) 5 mg PO TID [facility] Last Admin: 09/06/17 17:13 Dose: 5 mg Multivitamins (Hexavitamin) 1 tab PO DAILY [facility] Last Admin: 09/06/17 10:15 Dose: 1 tab Ondansetron HCl (Zofran Inj) 4 mg IVP Q6H PRN PRN Reason: Nausea/Vomiting Rifaximin (Xifaxan) 550 mg PO BID [facility] Last Admin: 09/06/17 17:13 Dose: 550 mg - Labs Labs: 09/07/17 08:06 09/07/17 08:06 PT 19.0 SECONDS (9.7-12.2) H 09/05/17 04:02 INR 1.7 09/05/17 04:02 APTT 39 SECONDS (21-34) H D 09/06/17 07:23 - Constitutional Appears: No Acute Distress - Head Exam Head Exam: ATRAUMATIC, NORMOCEPHALIC - Eye Exam Eye Exam: absent: Scleral icterus - Respiratory Exam Respiratory Exam: NORMAL BREATHING PATTERN - Cardiovascular Exam Cardiovascular Exam: REGULAR RHYTHM - GI/Abdominal Exam GI & Abdominal Exam: Soft, Normal Bowel Sounds. absent: Tenderness Additional comments: morbidly obese, scar in LLQ. - Back Exam Back Exam: NORMAL INSPECTION Assessment and Plan (1) Alcoholic cirrhosis of liver Status: Chronic (2) Ascites Assessment & Plan: Resume diuretics per renal specialty sales consultant when electrolytes have corrected. Low Na may be due to Furosemide? Urinary Na typical for diuretic therapy. Status: Acute (3) Acute hepatic encephalopathy Assessment & Plan: Clinically improved Compliance with diet and meds upon discharge Continue Xifaxan BID and Lactulose bid to achieve 2-3 stools per day. Reheater Helper to instruct on 50-60 gram protein restricted diet. Follow up in Medical/GI clinic when stable for discharge. Status: Acute
[2017-09-07] MEDS: Magnesium Chloride 64 mg ER Tab PO SCH (10:13)
[2017-09-07] MEDS: Cilostazol 100 mg Tab UD PO SCH ×2 (10:13→17:41)
[2017-09-07] MEDS: Magnesium Oxide 400 mg Tab UD PO SCH ×2 (10:13→17:41)
[2017-09-07] MEDS: Multiple Vitamins Tab PO SCH (10:14)
[2017-09-07] MEDS ORDERED: Tolvaptan 15 MG TAB PO ONE (14:14)
[2017-09-07 15:55] LABS: OSMOLALITY,URINE 705 mosm/kg (300-1000)
--- NOTE | 2017-09-07 20:37 | CP.PCM.PN ---
Subjective - Date & Time of Evaluation Date of Evaluation: 09/07/17 Time of Evaluation: 12:00 - Subjective Subjective: Patient denies any complaints; continues to have loose stools but not large volumes; Objective - Vital Signs/Intake and Output Vital Signs (last 24 hours): Temp Pulse Resp BP Pulse Ox 98.5 F 77 20 123/73 123 H 09/07/17 16:00 09/07/17 16:00 09/07/17 16:00 09/07/17 16:00 09/07/17 16:00 Intake and Output: 09/07/17 09/08/17 18:59 06:59 Intake Total 500 Balance 500 - Medications Medications: Current Medications Aspirin (Aspirin Chewable) 81 mg PO DAILY [facility] Last Admin: 09/07/17 10:14 Dose: 81 mg Cilostazol (Pletal) 100 mg PO BID [facility] Last Admin: 09/07/17 17:41 Dose: 100 mg Famotidine (Pepcid) 20 mg PO DAILY [facility] Last Admin: 09/07/17 10:14 Dose: 20 mg Ferrous Sulfate (Feosol) 325 mg PO DAILY [facility] Last Admin: 09/07/17 10:14 Dose: 325 mg Heparin Sodium (Porcine) (Heparin) 5,000 units SC Q8 [facility] Last Admin: 09/07/17 13:42 Dose: 5,000 units Lactulose (Enulose) 30 gm PO BID [facility] Last Admin: 09/07/17 17:40 Dose: 30 gm Magnesium Chloride (Slow-Mag) 64 mg PO DAILY [facility] Last Admin: 09/07/17 10:13 Dose: 64 mg Magnesium Oxide (Mag-Ox) 400 mg PO BID [facility] Last Admin: 09/07/17 17:41 Dose: 400 mg Midodrine (Proamatine) 5 mg PO TID [facility] Last Admin: 09/07/17 17:41 Dose: 5 mg Multivitamins (Hexavitamin) 1 tab PO DAILY [facility] Last Admin: 09/07/17 10:14 Dose: 1 tab Ondansetron HCl (Zofran Inj) 4 mg IVP Q6H PRN PRN Reason: Nausea/Vomiting Rifaximin (Xifaxan) 550 mg PO BID [facility] Last Admin: 09/07/17 18:27 Dose: 550 mg - Labs Labs: 09/07/17 08:06 09/07/17 08:06 PT 19.0 SECONDS (9.7-12.2) H 09/05/17 04:02 INR 1.7 09/05/17 04:02 APTT 39 SECONDS (21-34) H D 09/06/17 07:23 - Constitutional Appears: Well, No Acute Distress - Eye Exam Eye Exam: absent: Scleral icterus - ENT Exam ENT Exam: Mucous Membranes Moist - Respiratory Exam Respiratory Exam: Clear to Ausculation Bilateral. absent: Respiratory Distress - Cardiovascular Exam Cardiovascular Exam: RRR, +S1, +S2 - GI/Abdominal Exam GI & Abdominal Exam: Soft. absent: Distended, Tenderness - Extremities Exam Additional comments: mild b/l lower leg edema; - Neurological Exam Neurological Exam: Alert, Awake - Psychiatric Exam Psychiatric exam: Normal Affect, Normal Mood. absent: Agitated - Skin Skin Exam: Warm. absent: Cyanosis Assessment and Plan (1) Hyponatremia Assessment & Plan: Initially due to hypovolemia in the setting of diuretics; urine osm decreased markedly with accompanying improvement in hyponatremia after volume replenishment; however, yesterday, serum Na again dropping with high urine osm, this time with no significant improvement on volume replenishment; -giving dose of tolvaptan 15 mg -can resume diuretics with lasix 20 mg bid tomorrow; can start low dose aldactone 25 mg daily if Na 130 or more; Status: Acute (2) Volume depletion Assessment & Plan: Resolved; will cut down on diuretic regimen as above; goal of diuretics should be to avoid recurrent ascites but may need to tolerate some degree of peripheral edema; Status: Acute (3) Alcoholic cirrhosis of liver Assessment & Plan: Stimulus for splanchnic vasodilatation and hence increased sodium retention; diuretics as above; Status: Chronic
--- NOTE | 2017-09-07 23:20 | CARD ---
APPROVED REPORT EKG Measurement Heart [id number] <Conclusion> Sinus rhythm with premature supraventricular complexes Otherwise normal ECG
[2017-09-08 08:00] LABS: BASO % 0.5 % (0.0-2.0); EOS # 0.1 K/uL (0.0-0.7); EOS % 2.6 % (0.0-4.0); HEMOGLOBIN 10.7 g/dL (12.0-18.0); LYMPH # 1.5 K/uL (1.0-4.3); LYMPH % 28.1 % (20.0-40.0); MEAN CELL VOLUME 87.8 fL (80.0-94.0); MEAN CORPUSCULAR HEMOGLOBIN 29.2 pg (27.0-31.0); MEAN CORPUSCULAR HGB CONC 33.3 g/dL (33.0-37.0); MEAN PLATELET VOLUME 7.9 fL (7.2-11.7); MONO % 19.9 % (0.0-10.0); NEUT # 2.6 K/uL (1.8-7.0); NEUT % 48.9 % (50.0-75.0); NRBC % 0.1 % (0.0-2.0); RBC 3.65 Mil/uL (4.40-5.90); RED CELL DISTRIBUTION WIDTH 19.7 % (11.5-14.5)
[2017-09-08 08:05] LABS: WHITE BLOOD COUNT 5.2 K/uL (4.8-10.8)
[2017-09-08 08:24] LABS: ALBUMIN 2.6 g/dL (3.5-5.0); ALT/SGPT 55 U/L (21-72); AST/SGOT 61 U/L (17-59); BLOOD UREA NITROGEN 6 mg/dL (9-20); CALCIUM 7.6 mg/dl (8.6-10.4); GFR AFRICAN-AMERICAN > 60; GFR NON-AFRICAN AMERICAN > 60; MAGNESIUM 1.2 mg/dL (1.6-2.3)
[2017-09-08 08:35] LABS: ALB/GLOB RATIO 0.6 (1.0-2.1)
[2017-09-08] MEDS: Magnesium Sulfate 1 gm/100 mL D5W IVPB SCH ×4 (10:00→13:00)
[2017-09-08] MEDS: Multiple Vitamins Tab PO SCH (10:14)
[2017-09-08] MEDS: Cilostazol 100 mg Tab UD PO SCH ×2 (10:15→17:39)
[2017-09-08] MEDS: Magnesium Oxide 400 mg Tab UD PO SCH ×2 (10:15→17:39)
[2017-09-08] MEDS: Magnesium Chloride 64 mg ER Tab PO SCH (10:16)
--- NOTE | 2017-09-08 10:49 | CP.PCM.PN ---
Subjective - Date & Time of Evaluation Date of Evaluation: 09/08/17 Time of Evaluation: 10:47 - Subjective Subjective: No new complaints. Two bowel movements Na-127 Objective - Vital Signs/Intake and Output Vital Signs (last 24 hours): Temp Pulse Resp BP Pulse Ox 97.9 F 93 H 20 106/67 96 09/08/17 07:53 09/08/17 07:53 09/08/17 07:53 09/08/17 07:53 09/08/17 07:53 Intake and Output: 09/08/17 09/08/17 06:59 18:59 Intake Total 650 Output Total 1500 Balance -850 - Medications Medications: Current Medications Aspirin (Aspirin Chewable) 81 mg PO DAILY [facility] Last Admin: 09/08/17 10:14 Dose: 81 mg Cilostazol (Pletal) 100 mg PO BID [facility] Last Admin: 09/08/17 10:15 Dose: 100 mg Famotidine (Pepcid) 20 mg PO DAILY [facility] Last Admin: 09/08/17 10:14 Dose: 20 mg Ferrous Sulfate (Feosol) 325 mg PO DAILY [facility] Last Admin: 09/08/17 10:14 Dose: 325 mg Furosemide (Lasix) 20 mg PO BID [facility] Heparin Sodium (Porcine) (Heparin) 5,000 units SC Q8 [facility] Last Admin: 09/08/17 05:14 Dose: 5,000 units Lactulose (Enulose) 30 gm PO BID [facility] Last Admin: 09/08/17 10:14 Dose: 30 gm Magnesium Chloride (Slow-Mag) 64 mg PO DAILY [facility] Last Admin: 09/08/17 10:16 Dose: 64 mg Magnesium Oxide (Mag-Ox) 400 mg PO BID [facility] Last Admin: 09/08/17 10:15 Dose: 400 mg Magnesium Sulfate/Dextrose (Magnesium Sulfate 1 Gm/100 Ml D5w) 1 gm IVPB Q1H [facility] Stop: 09/08/17 12:01 Last Admin: 09/08/17 10:00 Dose: 1 gm Midodrine (Proamatine) 5 mg PO TID [facility] Last Admin: 09/08/17 10:15 Dose: 5 mg Multivitamins (Hexavitamin) 1 tab PO DAILY [facility] Last Admin: 09/08/17 10:14 Dose: 1 tab Ondansetron HCl (Zofran Inj) 4 mg IVP Q6H PRN PRN Reason: Nausea/Vomiting Rifaximin (Xifaxan) 550 mg PO BID [facility] Last Admin: 09/08/17 10:16 Dose: 550 mg - Labs Labs: 09/08/17 07:51 09/08/17 07:51 PT 19.0 SECONDS (9.7-12.2) H 09/05/17 04:02 INR 1.7 09/05/17 04:02 APTT 39 SECONDS (21-34) H D 09/06/17 07:23 - Constitutional Appears: No Acute Distress - Head Exam Head Exam: ATRAUMATIC, NORMOCEPHALIC - Respiratory Exam Respiratory Exam: NORMAL BREATHING PATTERN - Cardiovascular Exam Cardiovascular Exam: REGULAR RHYTHM - GI/Abdominal Exam GI & Abdominal Exam: Soft, Normal Bowel Sounds. absent: Distended, Tenderness, Mass Assessment and Plan (1) Alcoholic cirrhosis of liver Assessment & Plan: Abstain Consider surveillance EGD for varices when stable as outpatient. May be seen via clinic. Status: Chronic (2) Ascites Assessment & Plan: Management of diuretics per renal as sodium levels continue to improve. Status: Acute (3) Acute hepatic encephalopathy Assessment & Plan: Clinically stable at present Continue current regimen Status: Acute
[2017-09-08 12:37] LABS: CREATININE, RANDOM URINE 74.1 mg/dL
[2017-09-08] MEDS ORDERED: Tolvaptan 15 MG TAB PO ONE (13:10)
[2017-09-08 16:23] VITALS: BP 115/62; PULSE 84; TEMP 98.3; O2SAT 98
--- NOTE | 2017-09-08 18:02 | CP.PCM.DIS ---
Provider - Provider Date of Admission: 09/05/17 05:15 Attending physician: Jake Collins MD Primary care physician: PMD: Unknown Consults: GI - Dr. Coronel Nephro - Dr. Garg Time Spent in preparation of Discharge (in minutes): 44 Hospital Course - Lab Results Lab Results: Most Recent Lab Values WBC 5.2 K/uL (4.8-10.8) D 09/08/17 07:51 RBC 3.65 Mil/uL (4.40-5.90) L 09/08/17 07:51 Hgb 10.7 g/dL (12.0-18.0) L 09/08/17 07:51 Hct 32.0 % (35.0-51.0) L 09/08/17 07:51 MCV 87.8 fL (80.0-94.0) 09/08/17 07:51 MCH 29.2 pg (27.0-31.0) 09/08/17 07:51 MCHC 33.3 g/dL (33.0-37.0) 09/08/17 07:51 RDW 19.7 % (11.5-14.5) H 09/08/17 07:51 Plt Count 133 K/uL (130-400) 09/08/17 07:51 MPV 7.9 fL (7.2-11.7) 09/08/17 07:51 Neut % (Auto) 48.9 % (50.0-75.0) L 09/08/17 07:51 Lymph % (Auto) 28.1 % (20.0-40.0) 09/08/17 07:51 Forest % (Auto) 19.9 % (0.0-10.0) H 09/08/17 07:51 Eos % (Auto) 2.6 % (0.0-4.0) 09/08/17 07:51 Baso % (Auto) 0.5 % (0.0-2.0) 09/08/17 07:51 Neut # 2.6 K/uL (1.8-7.0) 09/08/17 07:51 Lymph # 1.5 K/uL (1.0-4.3) 09/08/17 07:51 Forest # 1.0 K/uL (0.0-0.8) H 09/08/17 07:51 Eos # 0.1 K/uL (0.0-0.7) 09/08/17 07:51 Baso # 0.0 K/uL (0.0-0.2) 09/08/17 07:51 Neutrophils % (Manual) 35 % (50-75) L 09/07/17 08:06 Lymphocytes % (Manual) 46 % (20-40) H 09/07/17 08:06 Monocytes % (Manual) 14 % (0-10) H 09/07/17 08:06 Eosinophils % (Manual) 5 % (0-4) H 09/07/17 08:06 Platelet Estimate Slightly decreased (NORMAL) L 09/07/17 08:06 Hypochromasia (manual) Slight 09/07/17 08:06 Poikilocytosis (manual Slight 09/07/17 08:06 Anisocytosis (manual) Slight 09/07/17 08:06 Target Cells Slight 09/07/17 08:06 Tear Drop Cells Slight 09/07/17 08:06 Ovalocytes Slight 09/07/17 08:06 PT 19.0 SECONDS (9.7-12.2) H 09/05/17 04:02 INR 1.7 09/05/17 04:02 APTT 39 SECONDS (21-34) H D 09/06/17 07:23 pO2 60 mm/Hg (30-55) H 09/05/17 04:19 VBG pH 7.42 (7.32-7.43) 09/05/17 04:19 VBG pCO2 33 mmHg (40-60) L 09/05/17 04:19 VBG HCO3 23.0 mmol/L 09/05/17 04:19 VBG Total CO2 22.4 mmol/L (22-28) 09/05/17 04:19 VBG O2 Sat (Calc) 95.3 % (40-65) H 09/05/17 04:19 VBG Base Excess -2.3 mmol/L (0.0-2.0) L 09/05/17 04:19 VBG Potassium 3.3 mmol/L (3.6-5.2) L 09/05/17 04:19 Sodium 131.0 mmol/l (132-148) L 09/05/17 04:19 Chloride 104.0 mmol/L (98-107) 09/05/17 04:19 Glucose 83 mg/dl (75-110) 09/05/17 04:19 Lactate 1.0 mmol/L (0.7-2.1) 09/05/17 04:19 Sodium 127 mmol/L (132-148) L 09/08/17 07:51 Potassium 4.0 mmol/L (3.6-5.2) 09/08/17 07:51 Chloride 103 mmol/L (98-107) 09/08/17 07:51 Carbon Dioxide 21 mmol/L (22-30) L 09/08/17 07:51 Anion Gap 7 (10-20) L 09/08/17 07:51 BUN 6 mg/dL (9-20) L 09/08/17 07:51 Creatinine 0.6 mg/dL (0.8-1.5) L 09/08/17 07:51 Est GFR ( Amer) > 60 09/08/17 07:51 Est GFR (Non-Af Amer) > 60 09/08/17 07:51 Random Glucose 80 mg/dL (75-110) 09/08/17 07:51 Serum Osmolality 270 mosm/kg (272-300) L 09/05/17 08:11 Calcium 7.6 mg/dl (8.6-10.4) L 09/08/17 07:51 Magnesium 1.2 mg/dL (1.6-2.3) L 09/08/17 07:51 Total Bilirubin 2.5 mg/dL (0.2-1.3) H 09/08/17 07:51 AST 61 U/L (17-59) H 09/08/17 07:51 ALT 55 U/L (21-72) 09/08/17 07:51 Alkaline Phosphatase 113 U/L (38-126) 09/08/17 07:51 Ammonia 41 umol/L (9-33) H D 09/07/17 08:06 Total Creatine Kinase 38 U/L (55-170) L 09/05/17 04:02 Troponin I 0.0250 ng/mL (0.00-0.120) 09/05/17 04:02 NT-Pro-B Natriuret Pep 38.1 pg/mL (0-450) 09/05/17 04:02 Total Protein 6.9 g/dL (6.3-8.3) 09/08/17 07:51 Albumin 2.6 g/dL (3.5-5.0) L 09/08/17 07:51 Globulin 4.3 gm/dL (2.2-3.9) H 09/08/17 07:51 Albumin/Globulin Ratio 0.6 (1.0-2.1) L 09/08/17 07:51 Lipase 217 U/L (23-300) 09/05/17 04:02 Alpha Fetoprotein 2.5 ng/mL (0.0-7.5) 09/07/17 08:06 Venous Blood Potassium 3.3 mmol/L (3.6-5.2) L 09/05/17 04:19 Urine Color Aide (YELLOW) 09/05/17 03:57 Urine Clarity Clear (Clear) 09/05/17 03:57 Urine pH 5.0 (5.0-8.0) 09/05/17 03:57 Ur Specific [place] 1.020 (1.003-1.030) 09/05/17 03:57 Urine Protein Negative mg/dL (NEGATIVE) 09/05/17 03:57 Urine Glucose (UA) Normal mg/dL (Normal) 09/05/17 03:57 Urine Ketones Trace mg/dL (NEGATIVE) 09/05/17 03:57 Urine Blood Negative (NEGATIVE) 09/05/17 03:57 Urine Nitrate Negative (NEGATIVE) 09/05/17 03:57 Urine Bilirubin Negative (NEGATIVE) 09/05/17 03:57 Urine Urobilinogen 2.0 mg/dL (0.2-1.0) 09/05/17 03:57 Ur Leukocyte Esterase Neg Taylor/uL (Negative) 09/05/17 03:57 Urine WBC (Auto) < 1 /hpf (0-5) 09/05/17 03:57 Urine RBC (Auto) 1 /hpf (0-3) 09/05/17 03:57 Ur Squamous Epith Cells 3 /hpf (0-5) 09/05/17 03:57 Urine Osmolality 253 mosm/kg (300-1000) L 09/08/17 11:37 Ur Random Creatinine 74.1 mg/dL 09/08/17 11:37 Ur Random Sodium 15 mmol/L 09/08/17 11:37 Ur Random Potassium 42.5 mmol/L 09/06/17 13:26 Urine Chloride 30 mmol/L (32-290) L 09/05/17 08:56 Urine Magnesium 6.7 mg/dL 09/08/17 11:37 Alcohol, Quantitative < 10 mg/dl (0-10) 09/05/17 04:02 Serum Ketones Negative (NEGATIVE) 09/05/17 04:02 Influenza Typ A,B (EIA) Negative for flu a/b (NEGATIVE) 09/05/17 04:55 - Hospital Course Hospital Course: PGY-1 H&P for Dr. Collins CC: malaise This is a 46 year old male with PMHx cirrhosis, HTN, HLD, PVD, anemia who presents complaining of general malaise for the past 3 days. Patient states that he doess not feel well. Patient states that he gradually felt weak and had decreased appetite. Patient is intermittently nauseous as well. Patient denies any exacerbating or relieving factors. Patient states that he is compliant with his medications since discharge. Patient denies fever, chills, chest pain, dyspnea, abdominal pain, dysuria. PMHx: cirrhosis, HTN, HLD, PVD, anemia PSHx: appendectomy Allergies: NKDA Social: Former smoker, quit less than a month ago. Used to smoke 1 pack every 3- 4 days for the past year. Former alcoholic, quit 9 months ago but has drank for as long as he can remember. Denies drugs. Family Hx: Father with heart problems. Mother with asthma Home meds: Aspirin 81 mg PO daily, Cilostazol 100 mg PO BID, Ferrous Sulfate 325 mg PO DAILY, Furosemide 40 mg PO DAILY, Lactulose 30 gm PO BID, Midodrine 5 mg PO TID, Multivitamins 1 tab PO DAILY, rifAXIMin 550 mg PO BID, Spironolactone 100 mg PO DAILY Hospital Course: This patient was admitted due to acute Hepatic Encephalopathy. He had recent admission for hepatic coma and extensive workup was done on admission but patient did not follow up with outpatient GI clinic. Ammonia level on admission was 110 and GI was consulted and patient was given Lactulose and Rfiaximin and ammonia on follow up was 41. He was also instructed by a dieticial to follow a 50-60g protein restricted diet. Abdominal ultrasound ( full results shown below) showed a diminutive liver. His symptoms improved during stay and he is currently showing no signs of hepatic encephalopathy. Patient also experienced hyponatremia during stay, secondary to diuretic use at home. Sodium levels were 121 on admission and decreased to 119 on 09/05/17. Nephrology was consulted and patient was placed on fluid restriction and diuretics were held. Sodium levels improved after said intervention but yesterday they decreased once again. Patient was given Tolvaptan 15mg PO once and current sodium levels are at 127. Patient also experienced hypomagnesmia, lkely secondary to diuretic use at home was replenished slowly with Mag Ox to avoid wasting by kidneys. His chronic medical conditions of alcoholic cirrhosis of liver was managed appropriately with education to abstain from alcohol. His hypertension, history of PVD, history of anemia were managed appropriately. Last progress note is shown below for a more detailed picture of this hospital stay. Hepatic Encephalopathy GI consult, Dr Coronel * Extensive work up has been done previously but patient has not had outpatient follow up with GI Clinic Recent admission for hepatic coma Ammonia level on admission 110, improved from prior admission, follow-up ammonia 41 Lactulose 30 mg PO BID * Patient is alert and showing no signs of hepatic encephalopathy. Keep at BID since we are trying to volume replenish him. continue home Rifaximin 550 mg BID continue home Multivitamin Seam Steamer to instruct on 50-[address] Liver 04/26/17: nodular hepatic contour consistent with cirrhosis, extensive hepatic steatosis, NO enhancing hepatic mass, splenomegaly, paraesophageal and upper abdominal varices Hyponatremia Nephrology consult, Dr Garg Patient on extensive diuretic regimen, also lactulose and reports frequent stools - most likely explanation of hyponatremia is hypovolemia * Currently holding home Lasix and Aldactone and Metolazone * Thiazide diuretic is not an optimal choice for patient who is prone to hyponatremia Fluid restrict 1L Serum Osmolality 270, Urine osmolality 514, Ur Random Sodium 43 * Will need to repeat urine sodium as previous level was drawn while patient was still under effect of diuretic. Give 1L NS then repeat Ur Sodium. * repeat urine osmolality 157, repeat random urine sodium 18, urine chloride 30 Holding diuretics * After adequately volume replenished and stable, restart lasix at 20 mg PO bid and restart aldactone at 25 mg PO bid * Should not be on home metolazone due to propensity to cause hyponatremia Avoid NSAIDs as it will potentiate the affect of antidiuretic hormone and worsen hyponatremia Tolvaptan 15mg PO ONCE 09/07/18 Alcoholic cirrhosis of liver with Ascites GI consult, Dr Coronel * Abstain from alcohol. * Consider surveillance EGD for varices when stable, this can be done as outpatient as well. Abdominal sonogram 09/06/17: Diminutive liver. Nodular hepatic contour. Echogenic liver may be seen in setting of hepatic parenchymal disease or fatty infiltration. Splenomegaly. Bidirectional flow within portal vein. Dilated common bile duct. AFP 2.5 NORMAL Hypotension Midodrine 5mg PO TID Albumin 25% 12.5g IV ONCE 09/05/17 Hypomagnesemia Likely 2/2 to diuretics Should replenish with PO Mag Ox 400mg BID * If replenishing via IV, should replenish slowly to avoid mag wasting by kidneys (run at no faster than 1g per hour) Slow-Mag 64mg PO QD Magnesium Oxide 400mg PO BID History of PVD continue home cilostazol 100 mg PO BID continue home aspirin 81mg PO QD History of Anemia continue home Ferrous sulfate 325 mg PO daily Prophylactic Measure Heart healthy - 60g Protein restriction diet Heparin 5000 units SC Q8 Pepcid 20 mg PO daily Zofran 4 mg IV prn nausea continue home Midodrine 5 mg PO TID Disposition: Patient will need to see a GI for EGD outpatient. Patient will need to follow-up with a film archivist outpatient. Discharge Exam - Head Exam Head Exam: ATRAUMATIC, NORMOCEPHALIC - Additional Findings Additional findings: - Constitutional Appears: No Acute Distress, Chronically Ill, Other (lethargic) - Head Exam Head Exam: ATRAUMATIC, NORMOCEPHALIC - Eye Exam Eye Exam: EOMI, PERRL - ENT Exam ENT Exam: Mucous Membranes Moist - Respiratory Exam Respiratory Exam: Clear to Auscultation Bilateral. absent: Rales, Rhonchi, Wheezes - Cardiovascular Exam Cardiovascular Exam: REGULAR RHYTHM, +S1, +S2 - GI/Abdominal Exam GI & Abdominal Exam: Distended, Normal Bowel Sounds, Soft. absent: Tenderness Additional comments: obese body habitus. surgical scar in LLQ - Extremities Exam Extremities exam: Positive for: pedal pulses present Additional comments: skin thickening in the lower extremities with non-pitting edema - Neurological Exam Neurological exam: Alert, CN II-XII Intact, Oriented x3 - Psychiatric Exam Psychiatric exam: Flat Affect - Skin Skin Exam: Dry, Warm Discharge Plan - Discharge Medications Prescriptions: Furosemide [Lasix] 20 mg PO BID #30 tab Lactulose [Enulose] 30 gm PO DAILY #30 udc Spironolactone [Aldactone] 25 mg PO DAILY #30 tab - Follow Up Plan Condition: FAIR Disposition: HOME/ ROUTINE Instructions: Spironolactone (By mouth), Furosemide (By mouth), Lactulose (By mouth), Hyponatremia (DC), Weakness (GEN), Fatigue (DC) Additional Instructions: Patient is medically stable for discharge. There have been adjustments to a few of your medications, please note the following: You will be given a script for the following medications to be taken as prescribed: 1. Furosemide [Lasix] 20mg, take 1 tablet in the morning and 1 tablet at night 2. Lactulose 30g, take 1 daily 3. Sprinonolactone [Aldactone] 25mg, take 1 tablet once a day in the morning Please resume all your other home medications which include: 1. Aspirin 81mg PO QD 2. Cilostazol 100mg PO BID 3. Ferrous Sulfate 325mg PO QD 4. Multivitamin 1 tab QD 5. Rifaximin 550mg PO BID 6. Dextromethorphan/Quinidine 1 capsule QD 7. Flonase 8. Folic Acid 1mg PO QD 9. Memantine 10mg PO QD 10. Midodrine 5mg PO TID 11. Magnesium oxide 400mg PO BID 12. Omeprazole 40mg PO QD It is very important that you follow-up with Shoes Hand Sewer, Dr Garg, as he will tailor your medications accordingly. You were given his business card. His contact information is: [address] [place] [address] If is very important that you see a GI, ammonia refrigeration worker, so they can manage your Liver Condition. If you don't have a GI, a referral has been included. It is very important that you follow up with your PMD so you can manage your other chronic conditions. If you don't have a PMD, a referral has been included. If symptoms return or worsen, please return to ER. Referrals: Beny Garg MD [Staff Provider] - Medardo Coronel MD [Staff Provider] - Flor Olvera MD [Staff Provider] -
--- NOTE | 2017-09-08 22:11 | CP.PCM.PN ---
Objective - Vital Signs/Intake and Output Vital Signs (last 24 hours): Temp Pulse Resp BP Pulse Ox 98.3 F 84 20 115/62 98 09/08/17 16:00 09/08/17 16:00 09/08/17 16:00 09/08/17 17:38 09/08/17 16:00 Intake and Output: 09/08/17 09/09/17 18:59 06:59 Intake Total 760 Output Total 750 Balance 10 - Labs Labs: 09/08/17 07:51 09/08/17 07:51 PT 19.0 SECONDS (9.7-12.2) H 09/05/17 04:02 INR 1.7 09/05/17 04:02 APTT 39 SECONDS (21-34) H D 09/06/17 07:23 Assessment and Plan (1) Hyponatremia Status: Acute (2) Volume depletion Status: Acute (3) Alcoholic cirrhosis of liver Status: Chronic
== END 2017-09-08 17:55 | disposition home or self-care (01) | DRG 433 ==
LOC: C.ER 03:18 → C.9E 05:15 → C.3T 18:38
PROVIDERS: ADMIT Family Medicine; ATTEND Family Medicine
DX: K70.40 Alcoholic hepatic failure without coma (principal); E22.2 Syndrome of inappropriate secretion of antidiuretic hormone; K70.31 Alcoholic cirrhosis of liver with ascites; I11.0 Hypertensive heart disease with heart failure; I50.9 Heart failure, unspecified; E83.42 Hypomagnesemia; E66.01 Morbid (severe) obesity due to excess calories; F10.288 Alcohol dependence with other alcohol-induced disorder; F20.9 Schizophrenia, unspecified; J44.9 Chronic obstructive pulmonary disease, unspecified; F31.9 Bipolar disorder, unspecified; Z90.49 Acquired absence of other specified parts of digestive tract; I87.8 Other specified disorders of veins; M62.81 Muscle weakness (generalized); E78.5 Hyperlipidemia, unspecified; D64.9 Anemia, unspecified; Z87.891 Personal history of nicotine dependence; E86.1 Hypovolemia; T50.2X5A Adverse effect of carbonic-anhydrase inhibitors, benzothiadiazides and other diuretics, initial encounter; Z68.39 Body mass index [BMI] 39.0-39.9, adult; Y90.0 Blood alcohol level of less than 20 mg/100 ml

== ENCOUNTER 2018-01-01 05:18 | Observation (INO) | payer MEDICARE, OTHER ==
[2018-01-01 05:19] VITALS: BMI 44.4
[2018-01-01] MEDS ORDERED: Albuterol-Ipratrop 3 mg / 0.5 (3 ml) UD IH STA (05:51)
--- NOTE | 2018-01-01 05:55 | C.PDOC ---
History Of Present Illness 47 yo male w/PMHx of alcohol cirrhosis BIBA for evaluation of malaise, weak, not sleeping for past 3 days. Otherwise, denies lethargy, drooling, CP, SOB, dyspnea, abd. pain, V/D, UTI sx.AAO#3, not in any apparent distress. Time Seen by Provider: 01/01/18 05:50 Chief Complaint (Nursing): Shortness Of Breath History Per: Patient Past Medical History Reviewed: Historical Data, Nursing Documentation, Vital Signs Vital Signs: Last Vital Signs Temp 97.9 F 01/01/18 05:56 Pulse 118 H 01/01/18 05:56 Resp 26 H 01/01/18 05:56 BP 126/75 01/01/18 05:56 Pulse Ox 100 01/01/18 06:40 - Medical History PMH: Anxiety, Arthritis, Asthma, Bipolar Disorder, CHF, COPD (ASTHMA), Depression, Gall Bladder Disease, HTN, Schizophrenia Denies: Crohn's Disease, Diverticulitis, Gastritis, Pancreatitis, Chronic Kidney Disease Surgical History: Appendectomy, Cholecystectomy Denies: CABG, Coronary Stent, Pacemaker, Tonsillectomy - [facility] Procedures FLUOROSCOPY OF RIGHT JUGULAR VEINS, GUIDANCE (11/14/15) INSERT INFUSION DEV IN R INT JUGULAR VEIN, PERC (11/14/15) INTRODUCTION OF SERUM/TOX/VACCINE INTO MUSCLE, PERC APPROACH (05/28/17) REMOVAL OF INFUSION DEVICE FROM UPPER VEIN, LOCAL BULK DRIVER APPROACH (11/14/15) Family History: States: Unknown Family Hx - Social History Hx Tobacco Use: No Hx Alcohol Use: Yes Hx Substance Use: No - Immunization History Hx Tetanus Toxoid Vaccination: No Hx Influenza Vaccination: Yes Hx Pneumococcal Vaccination: No Review Of Systems Except As Marked, All Systems Reviewed And Found Negative. Constitutional: Positive for: Weakness, Malaise Eyes: Negative for: Vision Change ENT: Negative for: Throat Pain Cardiovascular: Negative for: Chest Pain, Palpitations, Edema, Light Headedness Respiratory: Negative for: Cough, Shortness of Breath Gastrointestinal: Negative for: Nausea, Vomiting Neurological: Negative for: Weakness, Numbness, Altered Mental Status Physical Exam - Physical Exam Appears: Well, Non-toxic, No Acute Distress Skin: Normal Color, Warm, Dry Head: Normacephalic Eye(s): bilateral: PERRL Nose: No Flaring Oral Mucosa: Moist, No Drooling Throat: No Erythema, No Drooling Neck: Trachea Midline, Supple Cardiovascular: Rhythm Irregular (tachy), No Murmur, No JVD Respiratory: Decreased Breath Sounds (bibasilar), No Accessory Muscle Use, No Wheezing Gastrointestinal/Abdominal: Soft, No Tenderness, No Distention, No Guarding Extremity: Normal ROM, No Deformity, Swelling (chronic venous stasis with skin discoloration) Neurological/Psych: Oriented x3, Normal Speech ED Course And Treatment - Laboratory Results Result Diagrams: 01/01/18 06:16 18 06:16 Lab Interpretation: Abnormal ECG: Interpreted By Me, Viewed By Me ECG Rhythm: Atrial Flutter ECG Interpretation: Abnormal Interpretation Of ECG: Atria flutter@107/min O2 Sat by Pulse Oximetry: 100 Pulse Ox Interpretation: Normal - Radiology CXR: Interpreted by Me, Viewed By Me CXR Interpretation: Yes: Cardiomegaly Progress Note: [facility] Disposition - Disposition Disposition: HOSPITALIZED Disposition Time: 06:32 Condition: STABLE Forms: [facility] (Albanian) - Clinical Impression Clinical Impression: Arrhythmia, Atrial flutter, CHF (congestive heart failure)
[2018-01-01 06:19] LABS: BASO % 0.8 % (0.0-2.0); EOS # 0.2 K/uL (0.0-0.7); EOS % 7.3 % (0.0-4.0); HEMOGLOBIN 11.5 g/dL (12.0-18.0); LYMPH # 1.3 K/uL (1.0-4.3); LYMPH % 45.1 % (20.0-40.0); MEAN CELL VOLUME 91.3 fL (80.0-94.0); MEAN CORPUSCULAR HEMOGLOBIN 31.4 pg (27.0-31.0); MEAN CORPUSCULAR HGB CONC 34.4 g/dL (33.0-37.0); MEAN PLATELET VOLUME 8.6 fL (7.2-11.7); MONO # 0.4 K/uL (0.0-0.8); MONO % 13.5 % (0.0-10.0); NEUT # 0.9 K/uL (1.8-7.0); NEUT % 33.3 % (50.0-75.0); NRBC % 0.1 % (0.0-2.0); RBC 3.66 Mil/uL (4.40-5.90); RED CELL DISTRIBUTION WIDTH 18.2 % (11.5-14.5); WHITE BLOOD COUNT 2.8 K/uL (4.8-10.8)
[2018-01-01] MEDS ORDERED: Enoxaparin 120 mg Syringe SC STA (06:32)
[2018-01-01 06:34] LABS: INR 1.4; PROTHROMBIN TIME 14.8 SECONDS (9.7-12.2)
[2018-01-01] MEDS ORDERED: Enoxaparin 100 mg Syringe ONE (06:43)
[2018-01-01] MEDS ORDERED: Enoxaparin 30 mg Syringe ONE (06:43)
[2018-01-01] MEDS ORDERED: Albuterol 0.083% Inhal Sol (2.5 mg/3 mL) UD ONE (06:43)
[2018-01-01 06:50] LABS: ALB/GLOB RATIO 0.6 (1.0-2.1); ALBUMIN 2.6 g/dL (3.5-5.0); ALT/SGPT 35 U/L (21-72); AST/SGOT 86 U/L (17-59); BLOOD UREA NITROGEN 4 mg/dL (9-20); CALCIUM 7.4 mg/dl (8.6-10.4); GFR AFRICAN-AMERICAN > 60; GFR NON-AFRICAN AMERICAN > 60
[2018-01-01 07:03] LABS: B-TYPE NATRIURETIC PEPTIDE 310 pg/mL (0-450)
[2018-01-01 07:28] LABS: SQUAMOUS EPITHIAL < 1 /hpf (0-5); URINE BILIRUBIN NEGATIVE (NEGATIVE); URINE BLOOD NEGATIVE (NEGATIVE); URINE CLARITY Clear (Clear); URINE COLOR Straw (YELLOW); URINE GLUCOSE (UA) NORMAL (Normal); URINE LEUKOCYTE ESTERASE NEG Leu/uL (Negative); URINE PROTEIN NEGATIVE (NEGATIVE); URINE UROBILINOGEN NORMAL mg/dL (0.2-1.0)
--- NOTE | 2018-01-01 09:16 | RAD ---
PROCEDURE: CHEST RADIOGRAPH, 1 VIEW HISTORY: chest pain COMPARISON: Comparison chest 09/05/2017 FINDINGS: LUNGS: Mild bibasilar atelectasis PLEURA: No pneumothorax or pleural fluid seen. CARDIOVASCULAR: Heart remains enlarged. OSSEOUS STRUCTURES: No significant abnormalities. VISUALIZED UPPER ABDOMEN: Normal. OTHER FINDINGS: None. IMPRESSION: Cardiomegaly. Mild bibasilar atelectasis.
[2018-01-01] MEDS: Cilostazol 100 mg Tab UD PO SCH (17:34)
[2018-01-01] MEDS: Magnesium Oxide 400 mg Tab UD PO SCH (17:34)
[2018-01-01] MEDS ORDERED: QUINIDINE PO SCH (18:00)
[2018-01-01] MEDS ORDERED: DEXTROMETHORPHAN HBR PO SCH (18:00)
--- NOTE | 2018-01-02 08:20 | CP.PCM.CON ---
History of Present Illness - History of Present Illness History of Present Illness: I was asked to evaluate patient by Dr Ozuna. Patient is a 47 year old male with PMH HTN, CAD hepatic encephalopathy who presents with dyspnea. He ahd abdominal discomfort. He was found to be in atrial flutter. He denies chest pain. Review of Systems - Constitutional Constitutional: absent: As Per HPI, Anorexia, Chills, Daytime Sleepiness, Excessive Sweating, Fatigue, Fever, Frequent Falls, Headache, Increased Appetite , Lethargy, Malaise, Night Sweats, Snoring, Sleep Apnea, Weight Gain, Weight Loss, Weakness, Other - EENT Eyes: absent: As Per HPI, Blind Spots, Blurred Vision, Change in Vision, Decreased Night Vision, Diplopia, Discharge, Dry Eye, Exophthalmos, Floaters, Irritation, Itchy Eyes, Loss of Peripheral Vision, Pain, Photophobia, Requires Corrective Lenses, Sees Flashes, Spots in Vision, Tunnel Vision, Other Visual Disturbances, Loss of Vision, Other Ears: absent: As Per HPI, Decreased Hearing, Ear Discharge, Ear Pain, Tinnitus, Abnormal Hearing, Disequilibrium, Dizziness, Other Nose/Mouth/Throat: absent: As Per HPI, Epistaxis, Nasal Congestion, Nasal Discharge, Nasal Obstruction, Nasal Trauma, Nose Pain, Post Nasal Drip, Sinus Pain, Sinus Pressure, Bleeding Gums, Change in Voice, Dental Pain, Dry Mouth, Dysphagia, Halitosis, Hoarsness, Lip Swelling, Mouth Lesions, Mouth Pain, Odynophagia, Sore Throat, Throat Swelling, Tongue Swelling, Facial Pain, Neck Pain, Neck Mass, Other - Cardiovascular Cardiovascular: Dyspnea on Exertion - Respiratory Respiratory: absent: As Per HPI, Cough, Dyspnea, Hemoptysis, Dyspnea on Exertion , Wheezing, Snoring, Stridor, Pain on Inspiration, Chest Congestion, Excessive Mucous Production, Change in Mucous Color, Pain with Coughing, Other - Gastrointestinal Gastrointestinal: absent: As Per HPI, Abdominal Pain, Belching, Bloating, Change in Bowel Habits, Change in Stool Character, Coffee Ground Emesis, Constipation, Cramping, Diarrhea, Dyspepsia, Dysphagia, Early Satiety, Excessive Flatus, Fecal Incontinence, Heartburn, Hematemesis, Hematochezia, Loose Stools, Melena, Nausea, Odynophagia, Temesmus, Vomiting, Other - Genitourinary Genitourinary: absent: As Per HPI, Change in Urinary Stream, Difficulty Urinating, Dysuria, Flank Pain, Hematuria, Pyuria, Nocturia, Urinary Incontinence, Urinary Frequency, Urinary Hesitance, Urinary Urgency, Voiding Freq/Small Amts, Freq UTI, Hx Renal/Bladder Calculi, Hx /Renal Surgery, Bladder Distension, Other - Musculoskeletal Musculoskeletal: absent: As Per HPI, Abnormal Gait, Arthralgias, Atrophy, Back Pain, Deformity, Joint Swelling, Limited Range of Motion, Loss of Height, Muscle Cramps, Muscle Weakness, Myalgias, Neck Pain, Numbness, Radiating Pain into Limb, Stiffness, Tingling, Other - Integumentary Integumentary: absent: As Per HPI, Acne, Alopecia, Bleeding Lesions, Change in Hair, Change in Nails, Change in Pigmentation, Changing Lesions, Dry Skin, Erythema, Furuncle, Hirsutism, Lesions, New Lesions, Non-Healing Lesions, Photosensitivity, Pruritus, Rash, Skin Pain, Skin Ulcer, Sores, Striae, Swelling , Unusual Bruising, Wounds, Jaundice, Other - Neurological Neurological: absent: As Per HPI, Abnormal Gait, Abnormal Hearing, Abnormal Movements, Abnormal Speech, Behavioral Changes, Burning Sensations, Confusion, Convulsions, Disequilibrium, Dizziness, Numbness, Focal Weakness, Frequent Falls , Headaches, Lack of Coordination, Loss of Vision, Memory Loss, Paresthesias, Radicular Pain, Restless Legs, Sensory Deficit, Syncope, Tingling, Tremor, Vertigo, Weakness, Other Visual Disturbances, Other - Psychiatric Psychiatric: absent: As Per HPI, Abnormal Sleep Pattern, Anhedonia, Anxiety, Auditory Hallucinations, Behavioral Changes, Change in Appetite, Change in Libido, Confusion, Depression, Difficulty Concentrating, Hallucinations, Homicidal Ideation, Hopelessness, Irritability, Memory Loss, Mood Swings, Panic Attacks, Paranoia, Suicidal Ideation, Visual Hallucinations, Tactile Hallucinations, Other - Endocrine Endocrine: absent: As Per HPI, Change in Body Appearance, Change in Libido, Cold Intolorance, Deepening of Voice, Excessive Sweating, Fatigue, Flushing, Heat Intolorance, Increase in Ring/Shoe/Hat Size, Palpitations, Polydipsia, Polyphagia, Polyuria, Other - Hematologic/Lymphatic Hematologic: absent: As Per HPI, Easy Bleeding, Easy Bruising, Lymphadenopathy, Other Past Patient History - Infectious Disease Hx of Infectious Diseases: None - Tetanus Immunizations Tetanus Immunization: Unknown - Past Medical History & Family History Past Medical History?: Yes - Past Social History Smoking Status: Former Smoker - CARDIAC Hx Congestive Heart Failure: Yes Hx Hypertension: Yes Hx Pacemaker: No - PULMONARY Hx Asthma: Yes Hx Chronic Obstructive Pulmonary Disease (COPD): Yes (ASTHMA) - HEENT Hx HEENT Problems: No - RENAL Hx Chronic Kidney Disease: No - INTEGUMENTARY Hx Dermatological Problems: No - MUSCULOSKELETAL/RHEUMATOLOGICAL Hx Arthritis: Yes Hx Falls: No - GASTROINTESTINAL Hx Crohn's Disease: No Hx Diverticulitis: No Hx Gall Bladder Disease: Yes Hx Gastritis: No Hx Pancreatitis: No - GENITOURINARY/GYNECOLOGICAL Hx Genitourinary Disorders: No - PSYCHIATRIC Hx Anxiety: Yes Hx Bipolar Disorder: Yes Hx Depression: Yes Hx Schizophrenia: Yes Hx Substance Use: No - SURGICAL HISTORY Hx Appendectomy: Yes Hx Cholecystectomy: Yes Hx Coronary Artery Bypass Graft: No Hx Coronary Stent: No Hx Tonsillectomy: No - ANESTHESIA Hx Anesthesia: Yes Hx Anesthesia Reactions: No Hx Malignant Hyperthermia: No Meds Allergies/Adverse Reactions: Allergies Allergy/AdvReac Type Severity Reaction Status Date / Time No Known Allergies Allergy Verified 05/28/17 11:04 - Medications Medications: Current Medications Aspirin (Aspirin Chewable) 81 mg PO DAILY [facility] Last Admin: 01/01/18 13:28 Dose: 81 mg Cilostazol (Pletal) 100 mg PO BID [facility] Last Admin: 01/01/18 17:34 Dose: 100 mg Enoxaparin Sodium (Lovenox) 40 mg SC DAILY [facility] Ferrous Sulfate (Feosol) 325 mg PO DAILY [facility] Last Admin: 01/01/18 13:28 Dose: 325 mg Fluticasone Propionate (Flonase) 0 spr NS DAILY [facility] Folic Acid (Folic Acid) 1 mg PO DAILY [facility] Last Admin: 01/01/18 13:28 Dose: 1 mg Furosemide (Lasix) 20 mg IVP DAILY [facility] Home Med (Dextromethorphan Hbr/Quinidine [Nuedexta 20-10 Mg Capsule]) 1 each PO BID [facility] Lactulose (Enulose) 20 gm PO DAILY [facility] Last Admin: 01/01/18 13:28 Dose: 20 gm Magnesium Oxide (Mag-Ox) 400 mg PO BID [facility] Last Admin: 01/01/18 17:34 Dose: 400 mg Memantine (Namenda) 10 mg PO DAILY [facility] Midodrine (Proamatine) 5 mg PO TID [facility] Last Admin: 01/01/18 17:35 Dose: 5 mg Multivitamins (Hexavitamin) 1 tab PO DAILY [facility] Pantoprazole Sodium (Protonix Ec Tab) 40 mg PO DAILY [facility] Spironolactone (Aldactone) 25 mg PO DAILY [facility] Physical Exam - Constitutional Appears: Non-toxic - Head Exam Head Exam: NORMAL INSPECTION - Eye Exam Eye Exam: Normal appearance - ENT Exam ENT Exam: Mucous Membranes Moist - Neck Exam Neck exam: Positive for: Full Rom - Respiratory Exam Respiratory Exam: NORMAL BREATHING PATTERN - Cardiovascular Exam Cardiovascular Exam: REGULAR RHYTHM - GI/Abdominal Exam GI & Abdominal Exam: Normal Bowel Sounds - Rectal Exam Rectal Exam: Deferred - Extremities Exam Extremities exam: Negative for: pedal edema - Back Exam Back exam: NORMAL INSPECTION - Neurological Exam Neurological exam: Alert, Oriented x3 - Psychiatric Exam Psychiatric exam: Normal Affect - Skin Skin Exam: Normal Color Results - Vital Signs Recent Vital Signs: Last Vital Signs Temp 97.8 F 01/02/18 07:45 Pulse 103 H 01/02/18 07:45 Resp 20 01/02/18 07:45 BP 139/75 01/02/18 07:45 Pulse Ox 98 01/02/18 07:45 - Labs Result Diagrams: 01/01/18 06:16 01/01/18 06:16 - EKG Data EKG Interpreted by: Myself Assessment & Plan (1) Atrial flutter Assessment and Plan: currently rate controlled. will recommend echocardiogram. aniticoagulation will be difficult given heptaic disease. will employ rate control at this time. Status: Acute
--- NOTE | 2018-01-02 08:58 | HP ---
HISTORY OF PRESENT ILLNESS: Mr. Loya is a 47-year-old male admitted to the hospital with chief complain of shortness of breath, palpitation, and weakness. The patient came to the ER for admission, advised admission. The patient has history of history of congestive heart failure, schizophrenia, and COPD. PHYSICAL EXAMINATION: GENERAL: The patient is awake, alert, and oriented. VITAL SIGNS: Temperature 98, pulse 90. HEENT: Within normal limits. NECK: Supple. CHEST: Symmetrical. HEART: Regular. ABDOMEN: Soft. EXTREMITIES: No edema. ASSESSMENT: The patient suffers from congestive heart failure, rapid response. The patient will get bed rest, supportive care. Cardiology evaluation, oxygen diuresis. Marisa Ozuna MD
[2018-01-02] MEDS ORDERED: Pneumococcal 23-Valent Vaccine IM ONE (10:00)
--- NOTE | 2018-01-02 10:07 | CP.PCM.PN ---
Subjective - Date & Time of Evaluation Date of Evaluation: 01/02/18 Time of Evaluation: 09:45 - Subjective Subjective: Progress Note for Dr. Ozuna Patient seen and examined at bedside. No acute events reported per nursing staff. Patient reports his breathing and abdominal discomfort are improving. He denies having fever, chills, headache, chest pain, nausea, vomiting or diarrhea. Objective - Vital Signs/Intake and Output Vital Signs (last 24 hours): Temp Pulse Resp BP Pulse Ox 97.8 F 103 H 20 139/75 98 01/02/18 07:45 01/02/18 07:45 01/02/18 07:45 01/02/18 07:45 01/02/18 07:45 Intake and Output: 01/02/18 01/02/18 06:59 18:59 Intake Total 600 Output Total 240 Balance 360 - Medications Medications: Current Medications Aspirin (Aspirin Chewable) 81 mg PO DAILY [facility] Last Admin: 01/01/18 13:28 Dose: 81 mg Cilostazol (Pletal) 100 mg PO BID [facility] Last Admin: 01/01/18 17:34 Dose: 100 mg Enoxaparin Sodium (Lovenox) 40 mg SC DAILY [facility] Ferrous Sulfate (Feosol) 325 mg PO DAILY [facility] Last Admin: 01/01/18 13:28 Dose: 325 mg Fluticasone Propionate (Flonase) 0 spr NS DAILY [facility] Folic Acid (Folic Acid) 1 mg PO DAILY [facility] Last Admin: 01/01/18 13:28 Dose: 1 mg Furosemide (Lasix) 20 mg IVP DAILY [facility] Home Med (Dextromethorphan Hbr/Quinidine [Nuedexta 20-10 Mg Capsule]) 1 each PO BID [facility] Lactulose (Enulose) 20 gm PO DAILY [facility] Last Admin: 01/01/18 13:28 Dose: 20 gm Magnesium Oxide (Mag-Ox) 400 mg PO BID [facility] Last Admin: 01/01/18 17:34 Dose: 400 mg Memantine (Namenda) 10 mg PO DAILY [facility] Midodrine (Proamatine) 5 mg PO TID [facility] Last Admin: 01/01/18 17:35 Dose: 5 mg Multivitamins (Hexavitamin) 1 tab PO DAILY [facility] Pantoprazole Sodium (Protonix Ec Tab) 40 mg PO DAILY [facility] Spironolactone (Aldactone) 25 mg PO DAILY [facility] - Labs Labs: 01/01/18 06:16 01/01/18 06:16 PT 14.8 SECONDS (9.7-12.2) H 01/01/18 06:16 INR 1.4 01/01/18 06:16 APTT 35 SECONDS (21-34) H 01/01/18 06:16 - Constitutional Appears: Non-toxic, No Acute Distress - Head Exam Head Exam: ATRAUMATIC, NORMOCEPHALIC - Eye Exam Eye Exam: Normal appearance - ENT Exam ENT Exam: Mucous Membranes Moist - Neck Exam Neck Exam: Normal Inspection - Respiratory Exam Respiratory Exam: NORMAL BREATHING PATTERN. absent: Rhonchi, Wheezes, Respiratory Distress - Cardiovascular Exam Cardiovascular Exam: Tachycardia, +S1, +S2 - GI/Abdominal Exam GI & Abdominal Exam: Soft, Normal Bowel Sounds - Extremities Exam Additional comments: dark discoloration due to chronic venous stasis - Neurological Exam Neurological Exam: Alert, Awake, Oriented x3 - Psychiatric Exam Psychiatric exam: Normal Affect, Normal Mood - Skin Skin Exam: Dry, Warm Assessment and Plan - Assessment and Plan (Free Text) Assessment: Atrial flutter -EKG showed atrial flutter at 107bpm -Follow up echocardiogram -Previous echo on 01/2017 showed normal LV function and EF -Cardiology consulted, Dr. Caputo help appreciated -Currently rate controlled Hepatic encephalopathy -Ammonia 121 today -Lactulose 20mg TID -Multiple vitamin Hypokalemia -Potassium 3.3 today, supplemented -Continue to monitor -Follow up Mg, phos, supplement as needed PVD -Cilostazol 100mg BID -ASA 81mg Anemia -Ferrous sulfate 325 mg Prophylactic measures -Protonix -Lovenox -Dietary consult for obesity Case discussed with attending physician, all management per Dr. Ozuna
[2018-01-02] MEDS: Multiple Vitamins Tab PO SCH (11:02)
[2018-01-02] MEDS: Pantoprazole 40 mg EC Tab PO SCH (11:02)
[2018-01-02] MEDS: Cilostazol 100 mg Tab UD PO SCH ×2 (11:03→17:20)
[2018-01-02] MEDS: Magnesium Oxide 400 mg Tab UD PO SCH ×2 (11:03→17:20)
[2018-01-02] MEDS: Enoxaparin 40 mg Syringe SC SCH (11:04)
[2018-01-02 11:10] LABS: BASO % 0.3 % (0.0-2.0); EOS # 0.1 K/uL (0.0-0.7); EOS % 3.7 % (0.0-4.0); LYMPH # 0.8 K/uL (1.0-4.3); LYMPH % 32.7 % (20.0-40.0); MEAN CELL VOLUME 90.9 fL (80.0-94.0); MEAN CORPUSCULAR HEMOGLOBIN 31.6 pg (27.0-31.0); MEAN CORPUSCULAR HGB CONC 34.8 g/dL (33.0-37.0); MEAN PLATELET VOLUME 8.6 fL (7.2-11.7); MONO # 0.3 K/uL (0.0-0.8); MONO % 14.1 % (0.0-10.0); NEUT # 1.2 K/uL (1.8-7.0); NEUT % 49.2 % (50.0-75.0); NRBC % 0.6 % (0.0-2.0); RBC 3.47 Mil/uL (4.40-5.90); RED CELL DISTRIBUTION WIDTH 18.5 % (11.5-14.5); WHITE BLOOD COUNT 2.5 K/uL (4.8-10.8)
[2018-01-02] MEDS: Fluticasone Nasal 50 mcg/Spray NS SCH (11:12)
[2018-01-02 11:56] LABS: ALB/GLOB RATIO 0.6 (1.0-2.1); ALBUMIN 2.7 g/dL (3.5-5.0); ALT/SGPT 36 U/L (21-72); AST/SGOT 78 U/L (17-59); BLOOD UREA NITROGEN 6 mg/dL (9-20); CALCIUM 7.3 mg/dl (8.6-10.4); GFR AFRICAN-AMERICAN > 60; GFR NON-AFRICAN AMERICAN > 60
[2018-01-02] MEDS ORDERED: Potassium Chloride 20 mEq ER Tab PO ONE (12:57)
[2018-01-02] MEDS ORDERED: Magnesium Oxide 400 mg Tab UD PO ONE (15:08)
--- NOTE | 2018-01-02 16:11 | CARD ---
APPROVED REPORT EKG Measurement Heart [id number] <Conclusion> Atrial flutter,fib with variable AV block Abnormal ECG
--- NOTE | 2018-01-02 16:53 | CARD ---
APPROVED REPORT EXAM: Two-dimensional and M-mode echocardiogram with Doppler and color Doppler. Other Information Quality : GoodRhythm : INDICATION Dizziness and Vertigo Dyspnea Peripheral Edema Congestive Heart Failure 2D DIMENSIONS IVSd0.9 (0.7-1.1cm)LVDd6.0 (3.9-5.9cm) PWd1.1 (0.7-1.1cm)LVDs3.8 (2.5-4.0cm) FS (%) 36.3 %LVEF (%)65.1 (>50%) M-Mode DIMENSIONS Left Atrium (MM)5.89 (2.5-4.0cm)Aortic Root3.56 (2.2-3.7cm) Aortic Cusp Exc.2.48 (1.5-2.0cm) Mitral Valve MV E Scbzihyr836.2cm/sMV A Vucbrocz89.5cm/sE/A ratio1.2 TDI E/Lateral E'0.0E/Medial E'0.0 Tricuspid Valve TR Peak [id number]/sTR Peak Gr.34mmHg LEFT VENTRICLE The Left Ventricle is mildly dilated. There is normal left ventricular wall thickness. The Ejection Fraction is 55-60%. Transmitral Doppler flow pattern is Grade II-pseudonormal filling dynamics. The left atrial pressure is mildly elevated. RIGHT VENTRICLE The right ventricle is normal size. The right ventricular systolic function is normal. ATRIA The left atrium is severely dilated. The right atrium size is normal. The interatrial septum is intact with no evidence for an atrial septal defect. AORTIC VALVE The aortic valve is normal in structure. No aortic regurgitation is present. MITRAL VALVE The mitral valve is normal in structure. Mitral regurgitation is mild. TRICUSPID VALVE The tricuspid valve is normal in structure. There is mild tricuspid regurgitation. Right ventricular systolic pressure is estimated at 44 mmHg. There is mild pulmonary hypertension. PULMONIC VALVE The pulmonary valve is normal in structure. GREAT VESSELS The aortic root is normal in size. ivc is mildly dilated. PERICARDIAL EFFUSION There is no pericardial effusion. <Conclusion> The Left Ventricle is mildly dilated. The Ejection Fraction is 55-60%. Transmitral Doppler flow pattern is Grade II-pseudonormal filling dynamics. The left atrial pressure is mildly elevated. The left atrium is severely dilated. Mitral regurgitation is mild. There is mild tricuspid regurgitation. Right ventricular systolic pressure is estimated at 44 mmHg. There is mild pulmonary hypertension. ivc is mildly dilated. There is no pericardial effusion.
[2018-01-03 02:48] VITALS: RESP 20
--- NOTE | 2018-01-03 07:45 | CP.PCM.PN ---
Subjective - Date & Time of Evaluation Date of Evaluation: 01/03/18 Time of Evaluation: 07:40 - Subjective Subjective: Progress Note for Dr. Ozuna Patient seen and examined at bedside. No acute events reported per nursing staff. Pt found oriented x 3 laying comfortably at bedside. Denies SOB, chest pain, or palpitations this AM. Patient admits one soft BM overnight without blood, but denies diarrhea. Objective - Vital Signs/Intake and Output Vital Signs (last 24 hours): Temp Pulse Resp BP Pulse Ox 97.8 F 93 H 20 104/67 97 01/02/18 23:55 01/02/18 23:55 01/02/18 23:55 01/02/18 23:55 01/02/18 23:55 Intake and Output: 01/03/18 01/03/18 06:59 18:59 Intake Total 400 Balance 400 - Medications Medications: Current Medications Aspirin (Aspirin Chewable) 81 mg PO DAILY [facility] Last Admin: 01/02/18 11:02 Dose: 81 mg Cilostazol (Pletal) 100 mg PO BID [facility] Last Admin: 01/02/18 17:20 Dose: 100 mg Enoxaparin Sodium (Lovenox) 40 mg SC DAILY [facility] Last Admin: 01/02/18 11:04 Dose: 40 mg Ferrous Sulfate (Feosol) 325 mg PO DAILY [facility] Last Admin: 01/02/18 11:02 Dose: 325 mg Fluticasone Propionate (Flonase) 0 spr NS DAILY [facility] Last Admin: 01/02/18 11:12 Dose: Not Given Folic Acid (Folic Acid) 1 mg PO DAILY [facility] Last Admin: 01/02/18 11:02 Dose: 1 mg Furosemide (Lasix) 20 mg IVP DAILY [facility] Last Admin: 01/02/18 11:03 Dose: 20 mg Home Med (Dextromethorphan Hbr/Quinidine [Nuedexta 20-10 Mg Capsule]) 1 each PO BID [facility] Lactulose (Enulose) 20 gm PO TID [facility] Last Admin: 01/02/18 17:21 Dose: 20 gm Magnesium Oxide (Mag-Ox) 400 mg PO BID [facility] Last Admin: 01/02/18 17:20 Dose: 400 mg Memantine (Namenda) 10 mg PO DAILY [facility] Last Admin: 01/02/18 11:02 Dose: 10 mg Midodrine (Proamatine) 5 mg PO TID [facility] Last Admin: 01/02/18 17:21 Dose: 5 mg Multivitamins (Hexavitamin) 1 tab PO DAILY [facility] Last Admin: 01/02/18 11:02 Dose: 1 tab Pantoprazole Sodium (Protonix Ec Tab) 40 mg PO DAILY [facility] Last Admin: 01/02/18 11:02 Dose: 40 mg Spironolactone (Aldactone) 25 mg PO DAILY [facility] Last Admin: 01/02/18 11:02 Dose: 25 mg - Labs Labs: 01/02/18 11:00 01/02/18 11:00 PT 14.8 SECONDS (9.7-12.2) H 01/01/18 06:16 INR 1.4 01/01/18 06:16 APTT 35 SECONDS (21-34) H 01/01/18 06:16 - Additional Findings Additional findings: - Constitutional Appears: Non-toxic, No Acute Distress - Head Exam Head Exam: ATRAUMATIC, NORMOCEPHALIC - Eye Exam Eye Exam: Normal appearance - ENT Exam ENT Exam: Mucous Membranes Moist - Neck Exam Neck Exam: Normal Inspection - Respiratory Exam Respiratory Exam: NORMAL BREATHING PATTERN. absent: Rhonchi, Wheezes, Respiratory Distress - Cardiovascular Exam Cardiovascular Exam: Tachycardia, +S1, +S2 - GI/Abdominal Exam GI & Abdominal Exam: Soft, Normal Bowel Sounds - Extremities Exam Additional comments: dark discoloration due to chronic venous stasis - Neurological Exam Neurological Exam: Alert, Awake, Oriented x3 - Psychiatric Exam Psychiatric exam: Normal Affect, Normal Mood - Skin Skin Exam: Dry, Warm Assessment and Plan - Assessment and Plan (Free Text) Plan: Atrial flutter -EKG showed atrial flutter at 107bpm -Echocardiogram (01/02/18): LV mild dilation, EF 55-60%, Grade II relaxation abnormality, LA severely dilated, Mild MR, Mild TR, Mild pulm HTN -Previous echo on 01/2017 showed normal LV function and EF -Cardiology consulted, Dr. Harshal swift appreciated -Currently rate controlled Diastolic CHF, chronic BNP 310 on admission CXR (01/02/18): Cardiomegaly. Bibasilar atelectasis Echocardiogram (01/02/18): LV mild dilation, EF 55-60%, Grade II relaxation abnormality, LA severely dilated, Mild MR, Mild TR, Mild pulm HTN Start Coreg 3.125mg PO BID Alcoholic Cirrhosis CT Liver protocol (03/2017): Nodular hepatic contour c/w cirrhosis. Upper abdominal/splenic varices. Transaminitis AST: 2:1 ratio to ALT Chronic EtOH likely etiology Hyperammonemia/Hepatic encephalopathy Pt oriented x 3 -Ammonia increased today to 150 -Lactulose increased to 30mg TID Electrolyte abnormalities -Potassium 3.2 today, supplemented Mg 1.2 today, repleted -Continue to monitor PVD -Cilostazol 100mg BID -ASA 81mg Anemia Hgb 11.2 on AM labs -Ferrous sulfate 325 mg -Folic Acid 1mg PO Daily Thrombocytopenia Platelets 73 today, due to liver cirrhosis Prophylactic measures -Protonix -Lovenox -Dietary consult for obesity Case discussed with attending physician, all management per Dr. Ozuna
[2018-01-03] MEDS: Pantoprazole 40 mg EC Tab PO SCH (10:59)
[2018-01-03] MEDS: Multiple Vitamins Tab PO SCH (11:00)
[2018-01-03] MEDS: Cilostazol 100 mg Tab UD PO SCH ×2 (11:00→18:04)
[2018-01-03] MEDS: Enoxaparin 40 mg Syringe SC SCH (11:00)
[2018-01-03] MEDS: Magnesium Oxide 400 mg Tab UD PO SCH ×2 (11:01→18:04)
[2018-01-03 11:34] LABS: BASO % 0.2 % (0.0-2.0); EOS # 0.1 K/uL (0.0-0.7); EOS % 6.3 % (0.0-4.0); HEMOGLOBIN 11.2 g/dL (12.0-18.0); LYMPH % 47.5 % (20.0-40.0); MEAN CELL VOLUME 91.3 fL (80.0-94.0); MEAN CORPUSCULAR HGB CONC 33.9 g/dL (33.0-37.0); MEAN PLATELET VOLUME 8.3 fL (7.2-11.7); MONO # 0.3 K/uL (0.0-0.8); MONO % 14.6 % (0.0-10.0); NEUT # 0.7 K/uL (1.8-7.0); NEUT % 31.4 % (50.0-75.0); NRBC % 0.3 % (0.0-2.0); RBC 3.63 Mil/uL (4.40-5.90); WHITE BLOOD COUNT 2.2 K/uL (4.8-10.8)
[2018-01-03 11:50] LABS: ALB/GLOB RATIO 0.6 (1.0-2.1); ALBUMIN 2.5 g/dL (3.5-5.0); ALT/SGPT 22 U/L (21-72); AST/SGOT 69 U/L (17-59); BLOOD UREA NITROGEN 6 mg/dL (9-20); CALCIUM 7.5 mg/dl (8.6-10.4); GFR AFRICAN-AMERICAN > 60; GFR NON-AFRICAN AMERICAN > 60
[2018-01-03] MEDS ORDERED: Pneumococcal 23-Valent Vaccine IM ONE (12:00)
[2018-01-03] MEDS: Fluticasone Nasal 50 mcg/Spray NS SCH (13:21)
[2018-01-03] MEDS ORDERED: Potassium Chloride 20 mEq ER Tab PO ONE (13:46)
[2018-01-03] MEDS: Magnesium Sulfate 1 gm in D5W 1 GM/100 ML BAG IVPB SCH ×2 (14:20→14:46)
[2018-01-03] MEDS ORDERED: Magnesium Oxide 400 mg Tab UD PO ONE (14:55)
--- NOTE | 2018-01-03 15:59 | VASCLAB ---
PROCEDURE: Lower Extremity Venous Duplex Exam. HISTORY: pain, swelling PRIORS: None. TECHNIQUE: Bilateral common femoral, femoral, popliteal and posterior tibial, peroneal and great saphenous veins were evaluated. Flow was assessed with color Doppler, compressibility, assessment of phasic flow and augmentation response. Report prepared by DEBI Badillo FINDINGS: RIGHT: 1. Common Femoral Vein: 1.1. Compressibility - Fully compressible: Thrombus - None : Flow - Phasic: Augmentation -Normal: Reflux - None. 2. Femoral Vein: 2.1. Compressibility - Fully compressible: Thrombus - None : Flow - Phasic: Augmentation -Normal: Reflux - None. 3. Popliteal Vein: 3.1. Compressibility - Fully compressible: Thrombus - None : Flow - Phasic: Augmentation -Normal: Reflux - Severe. 4. Posterior Tibial Vein: 4.1. Compressibility - : Thrombus - : Flow - : Augmentation -: Reflux - . 5. Peroneal Vein: 5.1. Compressibility - : Thrombus - : Flow - : Augmentation -: Reflux - . 6. Great Saphenous Vein: 6.1. Compressibility - Fully compressible: Thrombus - None: Flow - Phasic: Augmentation - Normal: Reflux - None. LEFT: 1. Common Femoral Vein: 1.1. Compressibility - Fully compressible: Thrombus - None: Flow - Phasic: Augmentation -Normal: Reflux - None. 2. Femoral Vein: 2.1. Compressibility - Fully compressible: Thrombus - None: Flow - Phasic: Augmentation -Normal: Reflux - None. 3. Popliteal Vein: 3.1. Compressibility - Fully compressible: Thrombus - None : Flow - Phasic: Augmentation -Normal: Reflux - None. 4. Posterior Tibial Vein: 4.1. Compressibility - : Thrombus - : Flow - : Augmentation -: Reflux - . 5. Peroneal Vein: 5.1. Compressibility - : Thrombus - : Flow - : Augmentation -: Reflux - . 6. Great Saphenous Vein: 6.1. Compressibility - Fully compressible: Thrombus - None: Flow - Phasic: Augmentation - Normal: Reflux - None. OTHER FINDINGS: Due to swelling in the calves, bilateral peroneal and posterior tibial vein were not visualized. IMPRESSION: Right: No evidence of deep or superficial vein thrombosis of the right lower extremity. Left: No evidence of deep or superficial vein thrombosis of the left lower extremity. Normal valve function noted of the left side.
--- NOTE | 2018-01-03 19:53 | CP.PCM.PN ---
Subjective - Date & Time of Evaluation Date of Evaluation: 01/03/18 Time of Evaluation: 19:00 - Subjective Subjective: patient has no current chest pain or dyspnea Objective - Vital Signs/Intake and Output Vital Signs (last 24 hours): Temp Pulse Resp BP Pulse Ox 98.0 F 88 20 143/95 H 97 01/03/18 15:15 01/03/18 17:28 01/03/18 15:15 01/03/18 15:15 01/03/18 15:15 - Medications Medications: Current Medications Aspirin (Aspirin Chewable) 81 mg PO DAILY [facility] Last Admin: 01/03/18 10:59 Dose: 81 mg Carvedilol (Coreg) 3.125 mg PO BID [facility] Last Admin: 01/03/18 18:04 Dose: 3.125 mg Cilostazol (Pletal) 100 mg PO BID [facility] Last Admin: 01/03/18 18:04 Dose: 100 mg Enoxaparin Sodium (Lovenox) 40 mg SC DAILY [facility] Last Admin: 01/03/18 11:00 Dose: 40 mg Ferrous Sulfate (Feosol) 325 mg PO DAILY [facility] Last Admin: 01/03/18 11:04 Dose: 325 mg Fluticasone Propionate (Flonase) 0 spr NS DAILY [facility] Last Admin: 01/03/18 13:21 Dose: 4 spray Folic Acid (Folic Acid) 1 mg PO DAILY [facility] Last Admin: 01/03/18 11:00 Dose: 1 mg Furosemide (Lasix) 20 mg IVP DAILY [facility] Last Admin: 01/03/18 10:59 Dose: 20 mg Home Med (Dextromethorphan Hbr/Quinidine [Nuedexta 20-10 Mg Capsule]) 1 each PO BID [facility] Lactulose (Enulose) 20 gm PO TID [facility] Last Admin: 01/03/18 18:04 Dose: 20 gm Magnesium Oxide (Mag-Ox) 400 mg PO BID [facility] Last Admin: 01/03/18 18:04 Dose: 400 mg Memantine (Namenda) 10 mg PO DAILY [facility] Last Admin: 01/03/18 10:59 Dose: 10 mg Midodrine (Proamatine) 5 mg PO TID [facility] Last Admin: 01/03/18 18:04 Dose: Not Given Multivitamins (Hexavitamin) 1 tab PO DAILY [facility] Last Admin: 01/03/18 11:00 Dose: 1 tab Pantoprazole Sodium (Protonix Ec Tab) 40 mg PO DAILY [facility] Last Admin: 01/03/18 10:59 Dose: 40 mg Spironolactone (Aldactone) 25 mg PO DAILY [facility] Last Admin: 01/03/18 11:00 Dose: 25 mg - Labs Labs: 01/03/18 11:24 01/03/18 11:24 PT 14.8 SECONDS (9.7-12.2) H 01/01/18 06:16 INR 1.4 01/01/18 06:16 APTT 35 SECONDS (21-34) H 01/01/18 06:16 - Constitutional Appears: Non-toxic - Head Exam Head Exam: NORMAL INSPECTION - Eye Exam Eye Exam: Normal appearance - ENT Exam ENT Exam: Mucous Membranes Moist - Neck Exam Neck Exam: Full ROM - Respiratory Exam Respiratory Exam: NORMAL BREATHING PATTERN - Cardiovascular Exam Cardiovascular Exam: REGULAR RHYTHM - GI/Abdominal Exam GI & Abdominal Exam: Normal Bowel Sounds - Rectal Exam Rectal Exam: Deferred - Extremities Exam Extremities Exam: Pedal Edema - Back Exam Back Exam: NORMAL INSPECTION - Neurological Exam Neurological Exam: Alert - Psychiatric Exam Psychiatric exam: Normal Affect - Skin Skin Exam: Normal Color Assessment and Plan (1) Atrial flutter Assessment & Plan: rate controlled. no evidence of eart failure. recommend medical therapy. with hepatic disease, not ideal candidate for coumadin. Status: Acute (2) CAD (coronary artery disease) Assessment & Plan: patient had previous abnormal stress test. He did not follow up and missed multiple appointments. Recommend medical therapy.would not pursue cardiac cath given hepatic encephalopathy and relative neutropenia. Status: Acute
[2018-01-04 07:40] LABS: BASO % 0.4 % (0.0-2.0); EOS # 0.2 K/uL (0.0-0.7); EOS % 6.1 % (0.0-4.0); HEMOGLOBIN 11.5 g/dL (12.0-18.0); LYMPH # 1.1 K/uL (1.0-4.3); LYMPH % 38.6 % (20.0-40.0); MEAN CELL VOLUME 91.9 fL (80.0-94.0); MEAN CORPUSCULAR HEMOGLOBIN 31.5 pg (27.0-31.0); MEAN CORPUSCULAR HGB CONC 34.2 g/dL (33.0-37.0); MEAN PLATELET VOLUME 8.7 fL (7.2-11.7); MONO # 0.4 K/uL (0.0-0.8); MONO % 13.2 % (0.0-10.0); NEUT # 1.2 K/uL (1.8-7.0); NEUT % 41.7 % (50.0-75.0); NRBC % 0.1 % (0.0-2.0); RBC 3.65 Mil/uL (4.40-5.90); RED CELL DISTRIBUTION WIDTH 17.9 % (11.5-14.5); WHITE BLOOD COUNT 2.8 K/uL (4.8-10.8)
[2018-01-04 07:53] LABS: ALB/GLOB RATIO 0.6 (1.0-2.1); ALBUMIN 2.6 g/dL (3.5-5.0); ALT/SGPT 23 U/L (21-72); AST/SGOT 61 U/L (17-59); BLOOD UREA NITROGEN 6 mg/dL (9-20); CALCIUM 7.6 mg/dl (8.6-10.4); GFR AFRICAN-AMERICAN > 60; GFR NON-AFRICAN AMERICAN > 60
[2018-01-04 08:23] LABS: HEPATITIS B SURFACE AG Negative (NEGATIVE)
[2018-01-04 08:29] LABS: HEPATITIS A IGM NEGATIVE (NEGATIVE); HEPATITIS B CORE AB NEGATIVE (NEGATIVE)
[2018-01-04 08:40] LABS: HEPATITIS C ANTIBODY NEGATIVE (NEGATIVE)
[2018-01-04 08:44] VITALS: PULSE 76; TEMP 97.6; O2SAT 99
--- NOTE | 2018-01-04 09:10 | CP.PCM.PN ---
Subjective - Date & Time of Evaluation Date of Evaluation: 01/04/18 Time of Evaluation: 09:04 - Subjective Subjective: Progress Note for Dr. Ozuna Patient seen and examined at bedside. No acute events reported per nursing staff. Pt found oriented x 3 laying comfortably at bedside. Denies SOB, chest pain, or palpitations this AM. Objective - Vital Signs/Intake and Output Vital Signs (last 24 hours): Temp Pulse Resp BP Pulse Ox 97.6 F 76 20 115/67 99 01/04/18 08:40 01/04/18 08:40 01/04/18 08:40 01/04/18 08:40 01/04/18 08:40 Intake and Output: 01/04/18 01/04/18 06:59 18:59 Output Total 300 Balance -300 - Medications Medications: Current Medications Aspirin (Aspirin Chewable) 81 mg PO DAILY [facility] Last Admin: 01/03/18 10:59 Dose: 81 mg Carvedilol (Coreg) 3.125 mg PO BID [facility] Last Admin: 01/03/18 18:04 Dose: 3.125 mg Cilostazol (Pletal) 100 mg PO BID [facility] Last Admin: 01/03/18 18:04 Dose: 100 mg Enoxaparin Sodium (Lovenox) 40 mg SC DAILY [facility] Last Admin: 01/03/18 11:00 Dose: 40 mg Ferrous Sulfate (Feosol) 325 mg PO DAILY [facility] Last Admin: 01/03/18 11:04 Dose: 325 mg Fluticasone Propionate (Flonase) 0 spr NS DAILY [facility] Last Admin: 01/03/18 13:21 Dose: 4 spray Folic Acid (Folic Acid) 1 mg PO DAILY [facility] Last Admin: 01/03/18 11:00 Dose: 1 mg Furosemide (Lasix) 20 mg IVP DAILY [facility] Last Admin: 01/03/18 10:59 Dose: 20 mg Home Med (Dextromethorphan Hbr/Quinidine [Nuedexta 20-10 Mg Capsule]) 1 each PO BID [facility] Lactulose (Enulose) 20 gm PO TID [facility] Last Admin: 01/03/18 18:04 Dose: 20 gm Magnesium Oxide (Mag-Ox) 400 mg PO BID [facility] Last Admin: 01/03/18 18:04 Dose: 400 mg Memantine (Namenda) 10 mg PO DAILY [facility] Last Admin: 01/03/18 10:59 Dose: 10 mg Midodrine (Proamatine) 5 mg PO TID [facility] Last Admin: 01/03/18 18:04 Dose: Not Given Multivitamins (Hexavitamin) 1 tab PO DAILY [facility] Last Admin: 01/03/18 11:00 Dose: 1 tab Pantoprazole Sodium (Protonix Ec Tab) 40 mg PO DAILY [facility] Last Admin: 01/03/18 10:59 Dose: 40 mg Spironolactone (Aldactone) 25 mg PO DAILY [facility] Last Admin: 01/03/18 11:00 Dose: 25 mg - Labs Labs: 01/04/18 07:28 01/04/18 07:28 PT 14.8 SECONDS (9.7-12.2) H 01/01/18 06:16 INR 1.4 01/01/18 06:16 APTT 35 SECONDS (21-34) H 01/01/18 06:16 - Additional Findings Additional findings: - Constitutional Appears: Non-toxic, No Acute Distress - Head Exam Head Exam: ATRAUMATIC, NORMOCEPHALIC - Eye Exam Eye Exam: Normal appearance - ENT Exam ENT Exam: Mucous Membranes Moist - Neck Exam Neck Exam: Normal Inspection - Respiratory Exam Respiratory Exam: NORMAL BREATHING PATTERN. absent: Rhonchi, Wheezes, Respiratory Distress - Cardiovascular Exam Cardiovascular Exam: Tachycardia, +S1, +S2 - GI/Abdominal Exam GI & Abdominal Exam: Soft, Normal Bowel Sounds - Extremities Exam Additional comments: dark discoloration due to chronic venous stasis - Neurological Exam Neurological Exam: Alert, Awake, Oriented x3 - Psychiatric Exam Psychiatric exam: Normal Affect, Normal Mood - Skin Skin Exam: Dry, Warm - Gynecomastia noted Assessment and Plan - Assessment and Plan (Free Text) Plan: Atrial flutter -EKG showed atrial flutter at 107bpm -Echocardiogram (01/02/18): LV mild dilation, EF 55-60%, Grade II relaxation abnormality, LA severely dilated, Mild MR, Mild TR, Mild pulm HTN -Cardiology consulted, Dr. Levy help appreciated -Currently rate controlled; Not candidate for coumadin -Increase Coreg to 6.25mg PO BID Diastolic CHF, chronic BNP 310 on admission CXR (01/02/18): Cardiomegaly. Bibasilar atelectasis Echocardiogram (01/02/18): LV mild dilation, EF 55-60%, Grade II relaxation abnormality, LA severely dilated, Mild MR, Mild TR, Mild pulm HTN -Increase Coreg to 6.25mg PO BID CAD Cardiology consulted, Dr. Levy help appreciated - previous abnormal stress test. Has missed multiple appointments for follow up with DR. Levy. Recommend medical therapy - not candidate for cath given neutropenia - f/u lipid panel in AM Alcoholic Cirrhosis CT Liver protocol (03/2017): Nodular hepatic contour c/w cirrhosis. Upper abdominal/splenic varices. Transaminitis AST: 2:1 ratio to ALT; Alk phos 143 Chronic EtOH likely etiology Hyperammonemia/Hepatic encephalopathy Pt oriented x 3 -Ammonia -Lactulose increased to 30 gm TID -Midodrine 5mg PO TID Dementia Namenda 10mg PO Daily PVD -Cilostazol 100mg BID -ASA 81mg Anemia Hgb 11.5 on AM labs -Ferrous sulfate 325 mg -Folic Acid 1mg PO Daily Pancytopenia WBC 2.8, Platelets 73 today, due to liver cirrhosis/EtOH hx Electrolyte abnormalities -Potassium 3.6 today, supplemented Mg 1.5 today, repleted -Continue to monitor Prophylactic measures -Protonix -Lovenox -Dietary consult for obesity Case discussed with attending physician, all management per Dr. Ozuna
[2018-01-04] MEDS ORDERED: Potassium Chloride 20 mEq ER Tab PO ONE (09:29)
[2018-01-04] MEDS: Enoxaparin 40 mg Syringe SC SCH (10:23)
[2018-01-04] MEDS: Multiple Vitamins Tab PO SCH (10:23)
[2018-01-04] MEDS: Pantoprazole 40 mg EC Tab PO SCH (10:24)
[2018-01-04] MEDS: Magnesium Oxide 400 mg Tab UD PO SCH (10:24)
[2018-01-04] MEDS: Magnesium Sulfate 1 gm in D5W 1 GM/100 ML BAG IVPB SCH ×2 (10:25→11:50)
[2018-01-04] MEDS: Fluticasone Nasal 50 mcg/Spray NS SCH (10:25)
[2018-01-04] MEDS: Cilostazol 100 mg Tab UD PO SCH (10:26)
[2018-01-04 10:43] VITALS: BP 119/76
== END 2018-01-04 16:24 | disposition left against medical advice (07) ==
LOC: C.ER 05:18 → INTOOBSV 06:35 → C.9E 06:35 → C.6T 07:44
PROVIDERS: ADMIT Internal Medicine Pulmonary Disease; ATTEND Internal Medicine Pulmonary Disease
DX: I48.92 Unspecified atrial flutter (principal); I50.32 Chronic diastolic (congestive) heart failure; I11.0 Hypertensive heart disease with heart failure; I25.10 Atherosclerotic heart disease of native coronary artery without angina pectoris; I73.9 Peripheral vascular disease, unspecified; J44.9 Chronic obstructive pulmonary disease, unspecified; K72.90 Hepatic failure, unspecified without coma; K70.30 Alcoholic cirrhosis of liver without ascites; E87.6 Hypokalemia; D64.9 Anemia, unspecified; F20.9 Schizophrenia, unspecified; D69.59 Other secondary thrombocytopenia; F10.10 Alcohol abuse, uncomplicated; F10.20 Alcohol dependence, uncomplicated; M19.90 Unspecified osteoarthritis, unspecified site; Z87.891 Personal history of nicotine dependence; R06.00 Dyspnea, unspecified; Z90.49 Acquired absence of other specified parts of digestive tract
CPT/HCPCS: 36415; 71045; 80053; 80074; 81001; 82009; 82140; 82550; 83735; 83880; 84100; 84443; 84484; 85025; 85610; 85730; 93005; 93306; 93970; 96372; 96374; 99285; G0378; J1650; J1940; J3475

== ENCOUNTER 2018-02-21 07:34 | Inpatient (IN) | payer MEDICARE, OTHER ==
[2018-02-21 07:39] VITALS: BMI 47.9
--- NOTE | 2018-02-21 08:18 | C.PDOC ---
History Of Present Illness 47 y/o male presents to ED for complaints of change of mental status and lose of vision that began 12 days ago while on vacation in [place]. Patient was seen in ER on 01/04/18 and was discharged AMA with elevated ammonia levels. Patient states he is still drinking alcohol. Denies any other physical complaints. Patient had a normal cardiac echo on 01/02/18. Time Seen by Provider: 02/21/18 07:52 Chief Complaint (Nursing): Weakness/Neurological Deficit History Per: Patient History/Exam Limitations: no limitations Onset/Duration Of Symptoms: Days (12) Current Symptoms Are (Timing): Still Present Activity At Onset Of Symptoms: Sitting, Standing Associated Symptoms Preceding Syncopal Episode: No Predromal Symptoms (Sudden Onset) Seizure Or Post-ictal Symptoms: None Fall Associated With With Symptoms: No Recent travel outside of the [place]: Yes - Symptoms Of CVA Associated Symptoms: New Confusion. denies: Impaired Speech, Seizure Activity, New Vision Deficit(Left), New Vision Deficit(Right), Decreased Ability To Walk Recent Aspirin Use: Unknown Current Coumadin Use?: Unknown Recent Head Trauma: No Past Medical History Reviewed: Historical Data, Nursing Documentation, Vital Signs Vital Signs: Last Vital Signs Temp 99.4 F 02/21/18 07:39 Pulse 70 02/21/18 10:43 Resp 18 02/21/18 10:43 BP 115/74 02/21/18 10:43 Pulse Ox 98 02/21/18 10:43 - Medical History PMH: Anxiety, Arthritis, Asthma, Bipolar Disorder, CHF, COPD (ASTHMA), Depression, Gall Bladder Disease, HTN, Schizophrenia Surgical History: Appendectomy, Cholecystectomy - [facility] Procedures FLUOROSCOPY OF RIGHT JUGULAR VEINS, GUIDANCE (11/14/15) INSERT INFUSION DEV IN R INT JUGULAR VEIN, PERC (11/14/15) INTRODUCTION OF SERUM/TOX/VACCINE INTO MUSCLE, PERC APPROACH (05/28/17) REMOVAL OF INFUSION DEVICE FROM UPPER VEIN, THEOLOGY PROFESSOR APPROACH (11/14/15) Family History: States: Unknown Family Hx - Social History Hx Tobacco Use: No Hx Alcohol Use: No Hx Substance Use: No - Immunization History Hx Tetanus Toxoid Vaccination: No Hx Influenza Vaccination: Yes Hx Pneumococcal Vaccination: No Review Of Systems Constitutional: Negative for: Fever, Chills Eyes: Positive for: Vision Change Cardiovascular: Negative for: Chest Pain Respiratory: Negative for: Shortness of Breath Gastrointestinal: Negative for: Nausea, Vomiting, Abdominal Pain, Diarrhea Skin: Negative for: Rash Neurological: Positive for: Altered Mental Status (Change of altered mental status ). Negative for: Weakness, Numbness, Seizures, Headache, Dizziness Physical Exam - Physical Exam Appears: Non-toxic, Confused (Mild), Other (Obese) Skin: Normal Color, Warm, Dry Head: Atraumatic, Normacephalic Eye(s): bilateral: Normal Inspection, PERRL, EOMI Nose: Normal, No Discharge Oral Mucosa: Moist Neck: Supple Chest: Symmetrical, No Tenderness Cardiovascular: Rhythm Regular, No Murmur Respiratory: Normal Breath Sounds, No Decreased Breath Sounds, No Rales, No Rhonchi, No Wheezing Gastrointestinal/Abdominal: Soft, No Tenderness Extremity: Pedal Edema (4/4), No Deformity, Other (Foul smelling and stasis dermatitis of feet ) Neurological/Psych: Oriented x3 (Awake and Alert ), Normal Speech, Normal Motor , Normal Sensation, Normal Reflexes, Other (No focal deficits ) Gait: Steady ED Course And Treatment - Laboratory Results Result Diagrams: 02/21/18 08:20 02/21/18 08:20 Lab Interpretation: Abnormal ([id number]) ECG: Interpreted By Me ECG Rhythm: Sinus Rhythm ECG Interpretation: Normal Rate From EC O2 Sat by Pulse Oximetry: 98 (RA) Pulse Ox Interpretation: Normal - Radiology CXR: Interpreted by Me CXR Interpretation: Yes: No Acute Disease, Heart Size, Other (+ venous congestion) - Other Rad CXR X-Ray: Viewed By Me, Read By Radiologist Interpretation: No active disease. No acute/significant interval changes. Progress Note: lactulose, IV lasix Reevaluation Time: 08:50 Reassessment Condition: Improved - Physician Consult Information Outcome Of Conversation: 0845: d/w Dr. Stout- Adm MD for Dr. Flood and prior adm- ok to admit. Medical Decision Making Medical Decision Making: Administered Lasix and Lactulose. Ordered EKG, blood work, and CXR. Disposition Doctor Will See Patient In The: Hospital Counseled Patient/Family Regarding: Studies Performed, Diagnosis - Disposition Disposition: HOSPITALIZED Disposition Time: 08:52 Condition: GOOD - Clinical Impression Clinical Impression: Chronic congestive heart failure, Hyperammonemia, Hepatic encephalopathy - Scribe Statement The provider has reviewed the documentation as recorded by the Scribe Amie Rod All medical record entries made by the Scribe were at my direction and personally dictated by me. I have reviewed the chart and agree that the record accurately reflects my personal performance of the history, physical exam, medical decision making, and the department course for this patient. I have also personally directed, reviewed, and agree with the discharge instructions and disposition.
[2018-02-21 08:26] LABS: BASO % 1.1 % (0.0-2.0); EOS # 0.1 K/uL (0.0-0.7); EOS % 2.4 % (0.0-4.0); HEMOGLOBIN 12.2 g/dL (12.0-18.0); LYMPH # 1.1 K/uL (1.0-4.3); LYMPH % 36.9 % (20.0-40.0); MEAN CORPUSCULAR HEMOGLOBIN 29.9 pg (27.0-31.0); MEAN CORPUSCULAR HGB CONC 33.2 g/dL (33.0-37.0); MEAN PLATELET VOLUME 7.5 fL (7.2-11.7); MONO # 0.5 K/uL (0.0-0.8); MONO % 18.1 % (0.0-10.0); NEUT # 1.3 K/uL (1.8-7.0); NEUT % 41.5 % (50.0-75.0); NRBC % 0.1 % (0.0-2.0); RBC 4.1 Mil/uL (4.40-5.90); RED CELL DISTRIBUTION WIDTH 19.8 % (11.5-14.5)
[2018-02-21 08:28] LABS: MEAN CELL VOLUME 89.9 fL (80.0-94.0)
[2018-02-21 08:36] LABS: INR 1.7; PROTHROMBIN TIME 18.1 SECONDS (9.7-12.2)
[2018-02-21 08:41] LABS: CALCIUM 8.7 mg/dl (8.6-10.4); GFR AFRICAN-AMERICAN > 60; GFR NON-AFRICAN AMERICAN > 60
[2018-02-21 08:46] LABS: ALB/GLOB RATIO 0.6 (1.0-2.1); ALBUMIN 3.4 g/dL (3.5-5.0); ALT/SGPT 20 U/L (21-72); AST/SGOT 91 U/L (17-59); BLOOD UREA NITROGEN 8 mg/dL (9-20)
[2018-02-21 08:51] LABS: BARBITURATES, UR NEGATIVE (NEGATIVE); BENZODIAZEPINES, UR NEGATIVE (NEGATIVE); OPIATES, UR NEGATIVE (NEGATIVE); PHENCYCLIDINE, UR NEGATIVE (NEGATIVE)
[2018-02-21 08:52] LABS: B-TYPE NATRIURETIC PEPTIDE 144 pg/mL (0-450)
--- NOTE | 2018-02-21 10:47 | RAD ---
PROCEDURE: CHEST RADIOGRAPH, 1 VIEW HISTORY: SOB COMPARISON: 01/01/2018 FINDINGS: LUNGS: Clear. PLEURA: No pneumothorax or pleural fluid seen. CARDIOVASCULAR: Cardiomegaly. No evidence of acute, significant cardiovascular disease. OSSEOUS STRUCTURES: No significant abnormalities. VISUALIZED UPPER ABDOMEN: Normal. OTHER FINDINGS: None. IMPRESSION: No active disease. No acute/significant interval changes. Concordant results with the preliminary interpretation rendered by the emergency department physician procedure.
[2018-02-21 11:29] VITALS: RESP 20
[2018-02-21 15:08] LABS: CK-MB 0.4 ng/mL (0.0-3.38)
[2018-02-21 15:18] LABS: TROPONIN I 0.023 ng/mL (0.00-0.120)
--- NOTE | 2018-02-21 15:57 | CP.PCM.PN ---
Subjective - Date & Time of Evaluation Date of Evaluation: 02/21/18 Time of Evaluation: 11:00 - Subjective Subjective: Medicine progress note for Dr. Ozuna's service Patient is a 47 year old male with PMHx atrial flutter, PVD, anemia, chronic alcohol abuse who presents with complaints of complaint of blurry vision and confusion that occurred two weeks ago while in [place]. Patient states he woke up from sleep, confused, but these complaint have resolved. Patient admits to minor chest pain. Patient was recently hospitalized in 12/2017 for atrial flutter and hyperammonemia but left AMA. Patient has not followed up with PMD or cleaning matron Dr. Levy as advised on prior admission. Patient cannot recall his medications and is not sure which he is taking. Patient also has complaint of bilateral lower extremity edema and skin breakdown which he states is worse than during prior hospitalization. Objective - Vital Signs/Intake and Output Vital Signs (last 24 hours): Temp Pulse Resp BP Pulse Ox 98.1 F 82 20 134/83 98 02/21/18 11:28 02/21/18 14:05 02/21/18 11:28 02/21/18 14:05 02/21/18 10:58 Intake and Output: 02/21/18 02/21/18 06:59 18:59 Intake Total 720 Output Total 1500 Balance -780 - Medications Medications: Current Medications Aspirin (Aspirin Chewable) 81 mg PO DAILY [facility] Carvedilol (Coreg) 6.25 mg PO BID [facility] Cilostazol (Pletal) 100 mg PO BID [facility] Ferrous Sulfate (Feosol) 325 mg PO DAILY [facility] Folic Acid (Folic Acid) 1 mg PO DAILY [facility] Lactulose (Enulose) 30 gm PO TID [facility] Last Admin: 02/21/18 14:07 Dose: 30 gm Memantine (Namenda) 10 mg PO DAILY [facility] Midodrine (Proamatine) 5 mg PO TID [facility] Last Admin: 02/21/18 14:09 Dose: Not Given Pantoprazole Sodium (Protonix Inj) 40 mg IVP DAILY [facility] - Labs Labs: 02/21/18 08:20 02/21/18 08:20 PT 18.1 SECONDS (9.7-12.2) H 02/21/18 08:20 INR 1.7 02/21/18 08:20 APTT 36 SECONDS (21-34) H 02/21/18 08:20 - Constitutional Appears: No Acute Distress, Chronically Ill - Head Exam Head Exam: ATRAUMATIC, NORMOCEPHALIC - Eye Exam Eye Exam: EOMI, Scleral icterus - ENT Exam ENT Exam: Mucous Membranes Moist - Respiratory Exam Respiratory Exam: Decreased Breath Sounds, NORMAL BREATHING PATTERN - Cardiovascular Exam Cardiovascular Exam: +S1, +S2 - Extremities Exam Additional comments: bilateral lower extremity swelling with venous stasis changes, superficial skin wounds - Neurological Exam Neurological Exam: Alert, Awake - Skin Skin Exam: Warm Assessment and Plan - Assessment and Plan (Free Text) Assessment: Hyperammonemia/Hepatic encephalopathy -Ammonia 140, unclear whether patient compliant with medications at home -Lactulose 30 gm TID -Midodrine 5mg PO TID repeat ammonia level tomorrow Chest pain rule out ACS first two DHEERAJ negative EKG NSR at 74bpm continue to monitor Lower extremity edema prior echo in 12/2017 with ER 55-60% d-dimer elevated 649, will check venous doppler of lower extremities to r/o DVT patient given lasix 20mg IVP in ER, will monitor and consider continuing based on clinical presentation History of Atrial flutter present during prior hospitalization in 12/2017 EKG today: NSR 74bpm -Echocardiogram (01/02/18): LV mild dilation, EF 55-60%, Grade II relaxation abnormality, LA severely dilated, Mild MR, Mild TR, Mild pulm HTN -continue Coreg to 6.25mg PO BID Diastolic CHF, chronic BNP 144 on admission Echocardiogram (01/02/18): LV mild dilation, EF 55-60%, Grade II relaxation abnormality, LA severely dilated, Mild MR, Mild TR, Mild pulm HTN -continue Coreg to 6.25mg PO BID Alcoholic Cirrhosis CT Liver protocol (03/2017): Nodular hepatic contour c/w cirrhosis. Upper abdominal/splenic varices patient has history alcohol abuse CIWA protocol alcohol <10 Transaminitis AST 91, ALT 20, alk phos 145 likely due to chronic alcohol abuse Dementia Namenda 10mg PO Daily PVD -Cilostazol 100mg BID -ASA 81mg Anemia Hgb 12.2 on admission -Ferrous sulfate 325 mg -Folic Acid 1mg PO Daily Pancytopenia WBC 3.0, Platelets 134 today, likely due to liver cirrhosis/EtOH hx Prophylactic measures -Protonix -Lovenox Case discussed with attending physician, all management per Dr. Ozuna
[2018-02-21] MEDS: Cilostazol 100 mg Tab UD PO SCH (22:40)
[2018-02-22 08:46] LABS: BASO % 0.9 % (0.0-2.0); EOS # 0.1 K/uL (0.0-0.7); EOS % 2.3 % (0.0-4.0); HEMOGLOBIN 11.1 g/dL (12.0-18.0); LYMPH # 0.9 K/uL (1.0-4.3); LYMPH % 38.5 % (20.0-40.0); MEAN CELL VOLUME 90.2 fL (80.0-94.0); MEAN CORPUSCULAR HEMOGLOBIN 30.5 pg (27.0-31.0); MEAN CORPUSCULAR HGB CONC 33.8 g/dL (33.0-37.0); MEAN PLATELET VOLUME 8.4 fL (7.2-11.7); MONO # 0.4 K/uL (0.0-0.8); MONO % 15.7 % (0.0-10.0); NEUT % 42.6 % (50.0-75.0); NRBC % 0.2 % (0.0-2.0); RBC 3.65 Mil/uL (4.40-5.90); RED CELL DISTRIBUTION WIDTH 19.9 % (11.5-14.5); WHITE BLOOD COUNT 2.4 K/uL (4.8-10.8)
[2018-02-22 09:19] LABS: ALB/GLOB RATIO 0.6 (1.0-2.1); ALBUMIN 2.5 g/dL (3.5-5.0); ALT/SGPT 31 U/L (21-72); AST/SGOT 56 U/L (17-59); BLOOD UREA NITROGEN 9 mg/dL (9-20); CALCIUM 8.1 mg/dl (8.6-10.4); GFR AFRICAN-AMERICAN > 60; GFR NON-AFRICAN AMERICAN > 60
--- NOTE | 2018-02-22 10:05 | CP.PCM.PN ---
Subjective - Date & Time of Evaluation Date of Evaluation: 02/22/18 Time of Evaluation: 08:50 - Subjective Subjective: PGY 3 Med Note- Dr. Ozuna's service Patient seen and examined in no apparent acute distress. Patient admits to a prior history of drinking. Patient is tolerating a diet. Patient denies subjective fevers, chills, nausea, vomiting, or abdominal pain at this time Objective - Vital Signs/Intake and Output Vital Signs (last 24 hours): Temp Pulse Resp BP Pulse Ox 97.9 F 81 20 94/58 L 98 02/22/18 07:00 02/22/18 07:00 02/22/18 07:00 02/22/18 07:00 02/22/18 07:00 - Medications Medications: Current Medications Aspirin (Aspirin Chewable) 81 mg PO DAILY [facility] Carvedilol (Coreg) 6.25 mg PO BID [facility] Last Admin: 02/22/18 09:32 Dose: Not Given Cilostazol (Pletal) 100 mg PO BID [facility] Last Admin: 02/21/18 22:40 Dose: 100 mg Enoxaparin Sodium (Lovenox) 40 mg SC DAILY [facility] Ferrous Sulfate (Feosol) 325 mg PO DAILY [facility] Folic Acid (Folic Acid) 1 mg PO DAILY [facility] Magnesium Sulfate/Dextrose (Magnesium Sulfate 1 Gm/100 Ml D5w) 1 gm in 100 mls @ 300 mls/hr IVPB Q30M [facility] Stop: 02/22/18 10:49 Potassium Chloride (Potassium Chloride 20 Meq/100 Ml) 20 meq in 100 mls @ 50 mls/hr IVPB ONCE ONE Stop: 02/22/18 12:00 Lactulose (Enulose) 30 gm PO TID [facility] Last Admin: 02/21/18 19:25 Dose: 30 gm Memantine (Namenda) 10 mg PO DAILY [facility] Midodrine (Proamatine) 5 mg PO TID [facility] Last Admin: 02/22/18 09:34 Dose: Not Given Pantoprazole Sodium (Protonix Ec Tab) 40 mg PO DAILY [facility] Potassium Chloride (K-Dur 20 Meq Er Tab) 40 meq PO ONCE ONE Stop: 02/22/18 10:16 - Labs Labs: 02/22/18 08:22 02/22/18 08:22 PT 18.1 SECONDS (9.7-12.2) H 02/21/18 08:20 INR 1.7 02/21/18 08:20 APTT 36 SECONDS (21-34) H 02/21/18 08:20 - Constitutional Appears: Non-toxic, No Acute Distress, Other (large body habitus) - Head Exam Head Exam: ATRAUMATIC, NORMAL INSPECTION - Eye Exam Eye Exam: EOMI, Scleral icterus - ENT Exam ENT Exam: Mucous Membranes Moist - Neck Exam Neck Exam: Full ROM - Respiratory Exam Respiratory Exam: NORMAL BREATHING PATTERN - Cardiovascular Exam Cardiovascular Exam: +S1, +S2 - GI/Abdominal Exam GI & Abdominal Exam: Soft. absent: Firm, Guarding, Tenderness - Extremities Exam Extremities Exam: Full ROM, Normal Capillary Refill, Pedal Edema - Back Exam Back Exam: Full ROM - Neurological Exam Neurological Exam: Alert, Awake, Oriented x3 - Psychiatric Exam Psychiatric exam: Normal Affect, Normal Mood - Skin Skin Exam: Dry, Warm Assessment and Plan - Assessment and Plan (Free Text) Assessment: Hyperammonemia/Hepatic encephalopathy -Ammonia still elevated but decreasing, unclear whether patient compliant with medications at home -Lactulose 30 gm TID- Held momentarily. Patient had several bowel movements yesterday with a drop in potassium. Will resume at a decreased frequency once potassium levels improve. -Midodrine 5mg PO TID -F/U AM labs and Ammonia Chest pain rule out ACS first two DHEERAJ (negative, though value is higher range of normal) F/U third DHEERAJ EKG NSR at 74bpm Continue to monitor Lower extremity edema Prior echo in 12/2017 with ER 55-60% d-dimer elevated 649, F/U venous doppler of lower extremities to r/o DVT patient given lasix 20mg IVP in ER, will monitor and consider continuing based on clinical presentation History of Atrial flutter Present during prior hospitalization in 12/2017 EKG today: NSR 74bpm -Echocardiogram (01/02/18): LV mild dilation, EF 55-60%, Grade II relaxation abnormality, LA severely dilated, Mild MR, Mild TR, Mild pulm HTN -continue Coreg to 6.25mg PO BID Diastolic CHF, chronic BNP 144 on admission Echocardiogram (01/02/18): LV mild dilation, EF 55-60%, Grade II relaxation abnormality, LA severely dilated, Mild MR, Mild TR, Mild pulm HTN -continue Coreg to 6.25mg PO BID Alcoholic Cirrhosis CT Liver protocol (03/2017): Nodular hepatic contour c/w cirrhosis. Upper abdominal/splenic varices patient has history alcohol abuse CIWA protocol Ativan PRN alcohol <10 Electrolyte abnormality Repleted magnesium and potassium F/U repeat levels Transaminitis Improving Secondarily due to chronic alcohol abuse Dementia Namenda 10mg PO Daily PVD -Cilostazol 100mg BID -ASA 81mg Anemia Stable. Likely exacerbated by liver disease. Monitor -Ferrous sulfate 325 mg -Folic Acid 1mg PO Daily Pancytopenia Likely due to liver cirrhosis/EtOH hx Prophylactic measures -Protonix -Lovenox Case discussed with attending physician, all management per Dr. Ozuna
[2018-02-22] MEDS ORDERED: Potassium Chloride 20 mEq ER Tab PO ONE (10:15)
--- NOTE | 2018-02-22 10:31 | HP ---
HISTORY OF PRESENT ILLNESS: Mr. Loya was admitted to the hospital with chief complaint of altered mental status, weakness, fatigue, tiredness. The patient came to the ER, presents with liver failure, advised admission. PHYSICAL EXAMINATION: GENERAL: The patient is awake, alert, and oriented. VITAL SIGNS: Temperature 98, pulse 90. HEENT: Within normal limits. NECK: Supple. CHEST: Symmetrical. HEART: Regular rate and rhythm. ABDOMEN: distended. EXTREMITIES: 2+ edema. IMPRESSION AND PLAN: Patient suffers from liver failure, hepatic encephalopathy, liver cirrhosis. The patient is to bed rest, lactulose. Altered mental status. Marisa Ozuna MD
[2018-02-22] MEDS: Cilostazol 100 mg Tab UD PO SCH ×2 (10:50→18:19)
[2018-02-22] MEDS: Pantoprazole 40 mg EC Tab PO SCH (10:51)
[2018-02-22] MEDS: Enoxaparin 40 mg Syringe SC SCH (10:51)
[2018-02-22] MEDS: Magnesium Sulfate 1 gm in D5W 1 GM/100 ML BAG IVPB SCH ×2 (10:52→11:52)
--- NOTE | 2018-02-22 13:02 | VASCLAB ---
PROCEDURE: Lower Extremity Venous Duplex Exam. HISTORY: Elevated d-dimer, leg swelling and pain PRIORS: Last exam 01/02/2018, normal. TECHNIQUE: Bilateral common femoral, femoral, popliteal and posterior tibial, peroneal and great saphenous veins were evaluated. Flow was assessed with color Doppler, compressibility, assessment of phasic flow and augmentation response. Report prepared by DEBI Badillo FINDINGS: RIGHT: 1. Common Femoral Vein: 1.1. Compressibility - Fully compressible: Thrombus - None : Flow - Phasic: Augmentation -Normal: Reflux - None. 2. Femoral Vein: 2.1. Compressibility - Fully compressible: Thrombus - None : Flow - Phasic: Augmentation -Normal: Reflux - None. 3. Popliteal Vein: 3.1. Compressibility - Fully compressible: Thrombus - None : Flow - Phasic: Augmentation -Normal: Reflux - None. 4. Posterior Tibial Vein: 5. Peroneal Vein: 6. Great Saphenous Vein: Upper view only 6.1. Compressibility - Fully compressible: Thrombus - None: Flow - Phasic: Augmentation - Normal: Reflux - None. LEFT: 1. Common Femoral Vein: 1.1. Compressibility - Fully compressible: Thrombus - None: Flow - Phasic: Augmentation -Normal: Reflux - None. 2. Femoral Vein: 2.1. Compressibility - Fully compressible: Thrombus - None: Flow - Phasic: Augmentation -Normal: Reflux - None. 3. Popliteal Vein: 3.1. Compressibility - Fully compressible: Thrombus - None : Flow - Phasic: Augmentation -Normal: Reflux - None. 4. Posterior Tibial Vein: 5. Peroneal Vein: 6. Great Saphenous Vein: Upper view only 6.1. Compressibility - Fully compressible: Thrombus - None: Flow - Phasic: Augmentation - Normal: Reflux - None. OTHER FINDINGS: Right: Non vascularized right groin mass noted, measuring 1.79 x 3.22 c.m., possibly an enlarged lymph node. Left: Non vascularized left groin mass noted, measuring 1.71 x 3.34 C.m., possibly an enlarged lymph node. Veins in the calves could not be imaged due to swelling. IMPRESSION: Right: No evidence of deep or superficial vein thrombosis of the right lower extremity. Normal valve function noted of the right side. Left: No evidence of deep or superficial vein thrombosis of the left lower extremity. Normal valve function noted of the left side.
[2018-02-22 17:11] LABS: BLOOD UREA NITROGEN 10 mg/dL (9-20); CALCIUM 8.3 mg/dl (8.6-10.4); GFR AFRICAN-AMERICAN > 60; GFR NON-AFRICAN AMERICAN > 60
[2018-02-22 17:21] LABS: CK-MB 0.33 ng/mL (0.0-3.38)
--- NOTE | 2018-02-22 22:27 | CARD ---
APPROVED REPORT EKG Measurement Heart [id number] <Conclusion> Normal sinus rhythm Normal ECG
--- NOTE | 2018-02-23 07:21 | CP.PCM.PN ---
Subjective - Date & Time of Evaluation Date of Evaluation: 02/23/18 Time of Evaluation: 08:00 - Subjective Subjective: PGY 3 Med Note- Dr. Ozuna's service Patient seen and examined in no apparent acute distress. No new complaints today. Patient states he wants to go home today. Patient is tolerating a diet and having regular bowel movements. Patient denies subjective fevers, chills, nausea, vomiting, or abdominal pain at this time Patient decided to sign out AMA. Objective - Vital Signs/Intake and Output Vital Signs (last 24 hours): Temp Pulse Resp BP Pulse Ox 98.2 F 76 20 95/55 L 96 02/22/18 23:55 02/22/18 23:55 02/22/18 23:55 02/22/18 23:55 02/22/18 23:55 Intake and Output: 02/23/18 02/23/18 06:59 18:59 Output Total 300 Balance -300 - Medications Medications: Current Medications Aspirin (Aspirin Chewable) 81 mg PO DAILY [facility] Last Admin: 02/22/18 10:50 Dose: 81 mg Carvedilol (Coreg) 6.25 mg PO BID [facility] Last Admin: 02/22/18 18:18 Dose: 6.25 mg Cilostazol (Pletal) 100 mg PO BID [facility] Last Admin: 02/22/18 18:19 Dose: 100 mg Enoxaparin Sodium (Lovenox) 40 mg SC DAILY [facility] Last Admin: 02/22/18 10:51 Dose: 40 mg Ferrous Sulfate (Feosol) 325 mg PO DAILY [facility] Last Admin: 02/22/18 10:50 Dose: 325 mg Folic Acid (Folic Acid) 1 mg PO DAILY [facility] Last Admin: 02/22/18 10:50 Dose: 1 mg Lactulose (Enulose) 30 gm PO TID [facility] Last Admin: 02/22/18 18:18 Dose: 30 gm Lorazepam (Ativan) 1 mg IVP Q6H PRN PRN Reason: Symptoms of alcohol withdrawl Memantine (Namenda) 10 mg PO DAILY [facility] Last Admin: 02/22/18 10:50 Dose: 10 mg Midodrine (Proamatine) 5 mg PO TID [facility] Last Admin: 02/22/18 18:15 Dose: 5 mg Pantoprazole Sodium (Protonix Ec Tab) 40 mg PO DAILY [facility] Last Admin: 02/22/18 10:51 Dose: 40 mg - Labs Labs: 02/22/18 08:22 02/22/18 16:49 PT 18.1 SECONDS (9.7-12.2) H 02/21/18 08:20 INR 1.7 02/21/18 08:20 APTT 36 SECONDS (21-34) H 02/21/18 08:20 - Constitutional Appears: Non-toxic, No Acute Distress - Head Exam Head Exam: ATRAUMATIC, NORMAL INSPECTION - Eye Exam Eye Exam: EOMI - ENT Exam ENT Exam: Mucous Membranes Moist - Respiratory Exam Respiratory Exam: Clear to Ausculation Bilateral, NORMAL BREATHING PATTERN - Cardiovascular Exam Cardiovascular Exam: REGULAR RHYTHM, +S1, +S2 - GI/Abdominal Exam GI & Abdominal Exam: Soft, Normal Bowel Sounds. absent: Distended, Firm, Tenderness - Extremities Exam Extremities Exam: Normal Inspection - Back Exam Back Exam: NORMAL INSPECTION. absent: paraspinal tenderness - Neurological Exam Neurological Exam: Alert, Awake, Normal Gait, Oriented x3 - Psychiatric Exam Psychiatric exam: Normal Affect, Normal Mood Assessment and Plan - Assessment and Plan (Free Text) Assessment: Patient decided to sign out AMA despite his risks. He stated that he felt fine and wanted to leave without having his electrolytes replaced. Patient was alert awake and oriented x 3 with normal gait. Form was signed and placed in the chart , Witnessed buy his nurse. Hyperammonemia/Hepatic encephalopathy -Ammonia still elevated but decreasing, unclear whether patient compliant with medications at home -Lactulose 30 gm TID- Held momentarily. Patient had several bowel movements yesterday with a drop in potassium. Will resume at a decreased frequency once potassium levels improve. -Midodrine 5mg PO TID -Ammonia 62, decreasing, patient is awake and oriented Hypokalemia K 2.9 40 meq K PO x 1 dose 20 meq K IVPB x 3 doses Q2 hours f/u repeat K levels Hypomagnesia Mg 1.2 Mag Sulfate 1gram x 3 bags Q hourly f/u repeat Mg levels Chest pain Resolved rule out ACS DHEERAJ negative x 3 EKG NSR at 74bpm Continue to monitor Lower extremity edema Prior echo in 12/2017 with ER 55-60% d-dimer elevated 649 Venous dopplers negative for DVT patient given lasix 20mg IVP in ER, will monitor and consider continuing based on clinical presentation History of Atrial flutter Present during prior hospitalization in 12/2017 EKG today: NSR 74bpm -Echocardiogram (01/02/18): LV mild dilation, EF 55-60%, Grade II relaxation abnormality, LA severely dilated, Mild MR, Mild TR, Mild pulm HTN -Coreg to 6.25mg PO BID Diastolic CHF, chronic BNP 144 on admission Echocardiogram (01/02/18): LV mild dilation, EF 55-60%, Grade II relaxation abnormality, LA severely dilated, Mild MR, Mild TR, Mild pulm HTN -Coreg to 6.25mg PO BID Alcoholic Cirrhosis CT Liver protocol (03/2017): Nodular hepatic contour c/w cirrhosis. Upper abdominal/splenic varices patient has history alcohol abuse CIWA protocol Ativan PRN alcohol <10 Transaminitis Improving Secondarily due to chronic alcohol abuse Dementia Namenda 10mg PO Daily PVD -Cilostazol 100mg BID -ASA 81mg Anemia Stable. Likely exacerbated by liver disease. Monitor -Ferrous sulfate 325 mg -Folic Acid 1mg PO Daily Pancytopenia Likely due to liver cirrhosis/EtOH hx Prophylactic measures -Protonix -Lovenox All order and management per Dr. Ozuna. Lucy Rodas DO PGY3
[2018-02-23 07:50] VITALS: BP 109/68; PULSE 74; TEMP 97.9; O2SAT 99
[2018-02-23 08:12] LABS: BASO % 0.9 % (0.0-2.0); HEMOGLOBIN 10.8 g/dL (12.0-18.0); LYMPH # 0.9 K/uL (1.0-4.3); LYMPH % 37.7 % (20.0-40.0); MEAN CELL VOLUME 90.5 fL (80.0-94.0); MEAN CORPUSCULAR HEMOGLOBIN 30.1 pg (27.0-31.0); MEAN CORPUSCULAR HGB CONC 33.3 g/dL (33.0-37.0); MEAN PLATELET VOLUME 8.1 fL (7.2-11.7); MONO # 0.4 K/uL (0.0-0.8); MONO % 16.4 % (0.0-10.0); NEUT # 1.1 K/uL (1.8-7.0); NRBC % 0.2 % (0.0-2.0); RBC 3.6 Mil/uL (4.40-5.90); WHITE BLOOD COUNT 2.4 K/uL (4.8-10.8)
[2018-02-23 08:21] LABS: ALB/GLOB RATIO 0.6 (1.0-2.1); ALBUMIN 2.6 g/dL (3.5-5.0); ALT/SGPT 32 U/L (21-72); AST/SGOT 57 U/L (17-59); BLOOD UREA NITROGEN 9 mg/dL (9-20); CALCIUM 8.1 mg/dl (8.6-10.4); GFR AFRICAN-AMERICAN > 60; GFR NON-AFRICAN AMERICAN > 60
[2018-02-23] MEDS ORDERED: Potassium Chloride 20 mEq ER Tab PO STA (08:32)
[2018-02-23] MEDS ORDERED: Magnesium Sulfate 1 gm in D5W 1 GM/100 ML BAG IVPB SCH (08:45)
[2018-02-23] MEDS: Magnesium Sulfate 1 gm in D5W 1 GM/100 ML BAG IVPB SCH ×2 (08:50→09:53)
[2018-02-23] MEDS: Cilostazol 100 mg Tab UD PO SCH (09:54)
[2018-02-23] MEDS: Pantoprazole 40 mg EC Tab PO SCH (09:55)
[2018-02-23] MEDS: Enoxaparin 40 mg Syringe SC SCH (09:56)
== END 2018-02-23 10:56 | disposition left against medical advice (07) | DRG 433 ==
LOC: C.ER 07:34 → C.9E 08:48 → C.5S 10:34
PROVIDERS: ADMIT Internal Medicine Pulmonary Disease; ATTEND Internal Medicine Pulmonary Disease
DX: K70.40 Alcoholic hepatic failure without coma (principal); D61.818 Other pancytopenia; I50.32 Chronic diastolic (congestive) heart failure; I48.92 Unspecified atrial flutter; K70.30 Alcoholic cirrhosis of liver without ascites; F10.20 Alcohol dependence, uncomplicated; E83.42 Hypomagnesemia; E87.6 Hypokalemia; F03.90 Unspecified dementia, unspecified severity, without behavioral disturbance, psychotic disturbance, mood disturbance, and anxiety; F20.9 Schizophrenia, unspecified; F31.9 Bipolar disorder, unspecified; I11.0 Hypertensive heart disease with heart failure; I27.20 Pulmonary hypertension, unspecified; J44.9 Chronic obstructive pulmonary disease, unspecified; Y90.0 Blood alcohol level of less than 20 mg/100 ml

== ENCOUNTER 2018-03-09 07:25 | Inpatient (IN) | payer MEDICARE, OTHER ==
[2018-03-09 07:47] VITALS: BMI 49.9
--- NOTE | 2018-03-09 08:07 | C.PDOC ---
History Of Present Illness 47 y/o male with history of CHF and ETOH abuse presents to ED with c/o feeling depressed "for few days". Patient states "I cannot live this anymore" and reports he was recently admitted to hospital for Hepatic Encephalopathy. Patient is a poor historian and denies any other physical complaints at this time. Time Seen by Provider: 03/09/18 07:27 Chief Complaint (Nursing): Psychiatric Evaluation History Per: Patient History/Exam Limitations: no limitations Onset/Duration Of Symptoms: Days Current Symptoms Are (Timing): Still Present Suicide/Self Injury Attempted (Context): None Associated Symptoms: Depression Past Medical History Reviewed: Historical Data, Nursing Documentation, Vital Signs Vital Signs: Last Vital Signs Temp 99.0 F 03/09/18 11:15 Pulse 90 03/09/18 11:15 Resp 18 03/09/18 11:15 BP 132/81 03/09/18 11:15 Pulse Ox 99 03/09/18 11:15 - Medical History PMH: Anxiety, Arthritis, Asthma, Bipolar Disorder, CHF, COPD (ASTHMA), Depression, Gall Bladder Disease, HTN, Schizophrenia Surgical History: Appendectomy, Cholecystectomy - [facility] Procedures FLUOROSCOPY OF RIGHT JUGULAR VEINS, GUIDANCE (11/14/15) INSERT INFUSION DEV IN R INT JUGULAR VEIN, PERC (11/14/15) INTRODUCTION OF SERUM/TOX/VACCINE INTO MUSCLE, PERC APPROACH (05/28/17) REMOVAL OF INFUSION DEVICE FROM UPPER VEIN, POWDER COMPOUNDER APPROACH (11/14/15) Family History: States: No Known Family Hx - Social History Hx Tobacco Use: No Hx Alcohol Use: Yes Hx Substance Use: No (PT DENIES) - Immunization History Hx Tetanus Toxoid Vaccination: No Hx Influenza Vaccination: Yes Hx Pneumococcal Vaccination: No Review Of Systems Except As Marked, All Systems Reviewed And Found Negative. Psych: Positive for: Depression. Negative for: Suicidal ideation Physical Exam - Physical Exam Appears: Non-toxic, No Acute Distress Skin: Warm, Dry, No Rash Head: Atraumatic, Normacephalic Eye(s): bilateral: Normal Inspection Oral Mucosa: Moist Neck: Normal ROM, Supple Cardiovascular: Rhythm Regular Respiratory: Normal Breath Sounds, No Rales, No Rhonchi, No Wheezing Gastrointestinal/Abdominal: Soft, No Tenderness, No Guarding, No Rebound Extremity: Capillary Refill (<2 seconds), Other (bialteral lower leg swelling and chronic venous stasis ) Neurological/Psych: Oriented x3, Normal Speech, Normal Motor, Normal Sensation ED Course And Treatment - Laboratory Results Result Diagrams: 03/09/18 08:14 03/09/18 08:14 ECG: Interpreted By Me, Viewed By Me ECG Rhythm: Sinus Rhythm Rate From EC (bpm) O2 Sat by Pulse Oximetry: 97 (RA) Pulse Ox Interpretation: Normal Medical Decision Making Medical Decision Making: pt with increasted ammonia, cannot be medically clear. dr zuniga accps. Disposition - Disposition Disposition: HOSPITALIZED Disposition Time: 11:00 Condition: FAIR - Clinical Impression Clinical Impression: Moderate major depression, single episode, Hyperammonemia, Hepatic encephalopathy - Scribe Statement The provider has reviewed the documentation as recorded by the Scribzna Rodriguez All medical record entries made by the Scribe were at my direction and personally dictated by me. I have reviewed the chart and agree that the record accurately reflects my personal performance of the history, physical exam, medical decision making, and the department course for this patient. I have also personally directed, reviewed, and agree with the discharge instructions and disposition. Decision To Admit - Pt Status Changed To: Hospital Disposition Of: Inpatient - Admit Certification Admit to Inpatient:: After my assessment, the patient will require hospitalization for at least two midnights. This is because of the severity of symptoms shown, intensity of services needed, and/or the medical risk in this patient being treated as an outpatient. - InPatient: Physician Admission Certification: I certify that this patient requires 2 or more midnights of care for the following reason:: needs lactulose, pysch - . Bed Request Type: Telemetry Admitting Physician: Marisa Zuniga Patient Diagnosis: Moderate major depression, single episode, Hyperammonemia, Hepatic encephalopathy
[2018-03-09 08:25] LABS: BASO % 0.7 % (0.0-2.0); EOS # 0.2 K/uL (0.0-0.7); EOS % 8.5 % (0.0-4.0); HEMOGLOBIN 10.5 g/dL (12.0-18.0); LYMPH # 1.1 K/uL (1.0-4.3); LYMPH % 46.2 % (20.0-40.0); MEAN CORPUSCULAR HEMOGLOBIN 30.7 pg (27.0-31.0); MEAN CORPUSCULAR HGB CONC 34.5 g/dL (33.0-37.0); MEAN PLATELET VOLUME 7.2 fL (7.2-11.7); MONO # 0.4 K/uL (0.0-0.8); MONO % 14.4 % (0.0-10.0); NEUT # 0.7 K/uL (1.8-7.0); NEUT % 30.2 % (50.0-75.0); NRBC % 0.2 % (0.0-2.0); RBC 3.41 Mil/uL (4.40-5.90); WHITE BLOOD COUNT 2.4 K/uL (4.8-10.8)
[2018-03-09 08:28] LABS: SQUAMOUS EPITHIAL < 1 /hpf (0-5); URINE BILIRUBIN NEGATIVE (NEGATIVE); URINE BLOOD NEGATIVE (NEGATIVE); URINE CLARITY Clear (Clear); URINE COLOR Yellow (YELLOW); URINE GLUCOSE (UA) NORMAL (Normal); URINE LEUKOCYTE ESTERASE NEG Leu/uL (Negative); URINE PROTEIN NEGATIVE (NEGATIVE); URINE UROBILINOGEN NORMAL mg/dL (0.2-1.0)
[2018-03-09 08:37] LABS: ACETAMINOPHEN < 10.0 ug/mL (10.0-30.0); SALICYLATE < 1.0 mg/dL 1
[2018-03-09 08:43] LABS: ALB/GLOB RATIO 0.6 (1.0-2.1); ALBUMIN 2.8 g/dL (3.5-5.0); ALT/SGPT 33 U/L (21-72); AST/SGOT 65 U/L (17-59); BLOOD UREA NITROGEN 6 mg/dL (9-20); CALCIUM 7.8 mg/dl (8.6-10.4); GFR AFRICAN-AMERICAN > 60; GFR NON-AFRICAN AMERICAN > 60
[2018-03-09 08:55] LABS: BARBITURATES, UR NEGATIVE (NEGATIVE); BENZODIAZEPINES, UR NEGATIVE (NEGATIVE); OPIATES, UR NEGATIVE (NEGATIVE); PHENCYCLIDINE, UR NEGATIVE (NEGATIVE)
[2018-03-09] MEDS ORDERED: Magnesium Sulfate 1 gm in D5W 2 GM/200 ML BAG IVPB ONE (09:29)
[2018-03-09] MEDS: Magnesium Sulfate 1 gm in D5W 1 GM/100 ML BAG IVPB SCH ×2 (09:50→11:33)
--- NOTE | 2018-03-09 11:05 | RAD ---
Date of service: 03/09/2018 PROCEDURE: CHEST RADIOGRAPH, 1 VIEW HISTORY: Detox/Psy COMPARISON: Chest radiograph dated 02/21/2018. FINDINGS: LUNGS: Clear. PLEURA: No pneumothorax or pleural fluid seen. CARDIOVASCULAR: Cardiomediastinal silhouette stably enlarged. OSSEOUS STRUCTURES: Old left posterior lateral 4th rib fracture. Unchanged. VISUALIZED UPPER ABDOMEN: Normal. OTHER FINDINGS: None. IMPRESSION: No active disease.
--- NOTE | 2018-03-09 13:12 | CP.PCM.PN ---
Subjective - Date & Time of Evaluation Date of Evaluation: 03/09/18 Time of Evaluation: 13:07 - Subjective Subjective: PGY2 Medicine Note for Dr. Ozuna Patient is a 47 year old male with PMHx atrial flutter, PVD, anemia, chronic alcohol abuse who presents with complaints of complaint of depression. Patient was recently hospitalized on 02/21/2018 for hepatic encephalopathy and 12/2017 for atrial flutter and hyperammonemia but left AMA on both admissions. Patient cannot remember his medications and does not know what he is currently taking. Per ED staff, patient was kicked out of his house by his sister today, which caused him to get more depressed. He reported earlier that he wanted to kill himself by drinking poison. When asked about this, patient currently denies SI. He does not want to talk. He denies any other complaints at this time. Objective - Vital Signs/Intake and Output Vital Signs (last 24 hours): Temp Pulse Resp BP Pulse Ox 99.0 F 90 18 132/81 99 03/09/18 11:15 03/09/18 11:15 03/09/18 11:15 03/09/18 11:15 03/09/18 11:15 - Medications Medications: Current Medications Aspirin (Aspirin Chewable) 81 mg PO DAILY [facility] Carvedilol (Coreg) 6.25 mg PO BID [facility] Cilostazol (Pletal) 100 mg PO BID [facility] Ferrous Sulfate (Feosol) 325 mg PO DAILY [facility] Folic Acid (Folic Acid) 1 mg PO DAILY [facility] Home Med (Midodrine [Proamatine]) 5 mg PO TID [facility] Home Med (Omeprazole [Omeprazole]) 40 mg PO DAILY [facility] Lactulose (Enulose) 30 gm PO TID [facility] Lorazepam (Ativan) 1 mg IVP Q3H PRN PRN Reason: Symptoms of alcohol withdrawl Memantine (Namenda) 10 mg PO DAILY [facility] Multivitamins (Hexavitamin) 1 tab PO DAILY [facility] - Labs Labs: 03/09/18 08:14 03/09/18 08:14 - Constitutional Appears: Older Than Stated Age, Chronically Ill - Head Exam Head Exam: ATRAUMATIC, NORMOCEPHALIC - Eye Exam Eye Exam: PERRL, Scleral icterus Pupil Exam: NORMAL ACCOMODATION - ENT Exam ENT Exam: Mucous Membranes Moist - Respiratory Exam Respiratory Exam: Clear to Ausculation Bilateral, NORMAL BREATHING PATTERN. absent: Accessory Muscle Use, Rales, Rhonchi, Wheezes, Respiratory Distress - Cardiovascular Exam Cardiovascular Exam: REGULAR RHYTHM, +S1, +S2 - Extremities Exam Extremities Exam: Pedal Edema (3+ pitting b/l up to above knee) Additional comments: b/l lower extremity edema with venous stasis changes, superficial skin wounds - Neurological Exam Neurological Exam: Alert, Awake Additional comments: very lethargic, does not want to speak - Psychiatric Exam Psychiatric exam: Depressed, Flat Affect - Skin Skin Exam: Warm Assessment and Plan - Assessment and Plan (Free Text) Plan: Hyperammonemia/Hepatic encephalopathy Ammonia 116 Alcohol 115 Started on Lactulose 30 gm TID Restarted home Midodrine 5mg PO TID Suicide Idealization Psych Consulted, Dr. Bauman Per ED staff, patient stated he was kicked out of his sister's house and he wanted to drink poison and kill himself. Patient denied this to Resident Rolando. Placed on 1:1 sitter History of Atrial flutter EKG today: NSR 76 bpm, normal axis, prolong QTc 495 Echocardiogram (01/02/18): LV mild dilation, EF 55-60%, Grade II relaxation abnormality, LA severely dilated, Mild MR, Mild TR, Mild pulm HTN Restart home Coreg to 6.25mg PO BID Hypomagnesia Mg 1.3 Mag Sulfate 1gram x 1 bag continue to monitor Diastolic CHF, chronic BNP 144 on admission CXR (03/09/18): No active disease Echocardiogram (01/02/18): LV mild dilation, EF 55-60%, Grade II relaxation abnormality, LA severely dilated, Mild MR, Mild TR, Mild pulm HTN Restarted home Coreg to 6.25mg PO BID Alcoholic Cirrhosis CT Liver protocol (03/2017): Nodular hepatic contour c/w cirrhosis. Upper abdominal/splenic varices patient has history alcohol abuse AST 65/ALT 33/Alk Phos 133 CIWA protocol Aspiration/Seizure/Fall precautions Started on Ativan 1mg IVP q3h PRN alcohol 115 Dementia Restarted home Namenda 10mg PO Daily PVD Restarted home Cilostazol 100mg PO BID Restarted home Aspiring 81mg PO daily Anemia upon admission, Hgb 10.5 (10.8 on 02/23) Monitor Restarted home Ferrous sulfate 325 mg PO daily Restarted home Folic Acid 1mg PO Daily Pancytopenia Likely due to liver cirrhosis/EtOH hx Prophylactic measures Protonix 40mg PO daily Lovenox All order and management per Dr. Ozuna.
[2018-03-09 17:52] VITALS: RESP 20
[2018-03-09] MEDS ORDERED: Cilostazol 100 mg Tab UD PO SCH (18:00)
--- NOTE | 2018-03-09 21:33 | CP.PCM.PCO ---
Physician Communication Note - Physician Communication Note Physician Communication Note: Pt will be seen by Psych C/L team tomorrow.
--- NOTE | 2018-03-10 06:34 | HP ---
HISTORY OF PRESENT ILLNESS: A 47-year-old male with history of alcoholism and hepatic encephalopathy. . The patient came to the ER, advised admission. . The patient is not compliant. The patient is lethargic. PHYSICAL EXAMINATION: VITAL SIGNS: Temperature 98, pulse 92. HEENT: Within normal limits. NECK: Supple. CHEST: Symmetrical. HEART: Regular. ABDOMEN: Soft. EXTREMITIES: No edema. IMPRESSION: The patient has hepatic encephalopathy, alcohol withdrawal. The patient is to bed rest. Supportive care. Continue with treatment. Marisa Ozuna MD
--- NOTE | 2018-03-10 07:00 | CP.PCM.PN ---
Subjective - Date & Time of Evaluation Date of Evaluation: 03/10/18 Time of Evaluation: 06:57 - Subjective Subjective: PGY-[address] Ozuna's service Pt seen and examined at bedside. Nursing reports no acute events overnight. Patient asking to sign out AMA. Patient found oriented x 3, aware of context of admission. He was seen by psychiatry who cleared patient. Pt with history of hepatic encephalopathy so will be given Lactulose prescription at discharge. Pt asked to follow up with PMD, Dr Ozuna, within one week. Pt verbalized understanding to risks of leaving AMA and signed AMA form. Objective - Vital Signs/Intake and Output Vital Signs (last 24 hours): Temp Pulse Resp BP Pulse Ox 98.6 F 74 20 128/78 97 03/09/18 16:00 03/09/18 23:30 03/09/18 16:00 03/09/18 16:00 03/09/18 16:00 Intake and Output: 03/09/18 03/10/18 18:59 06:59 Intake Total 300 Balance 300 - Medications Medications: Current Medications Aspirin (Aspirin Chewable) 81 mg PO DAILY [facility] Carvedilol (Coreg) 6.25 mg PO BID [facility] Last Admin: 03/09/18 17:54 Dose: 6.25 mg Cilostazol (Pletal) 100 mg PO BID [facility] Last Admin: 03/09/18 17:54 Dose: 100 mg Ferrous Sulfate (Feosol) 325 mg PO DAILY [facility] Folic Acid (Folic Acid) 1 mg PO DAILY [facility] Lactulose (Enulose) 30 gm PO TID [facility] Last Admin: 03/09/18 17:54 Dose: 30 gm Lorazepam (Ativan) 1 mg IVP Q3H PRN PRN Reason: Symptoms of alcohol withdrawl Memantine (Namenda) 10 mg PO DAILY [facility] Midodrine (Proamatine) 5 mg PO TID [facility] Last Admin: 03/09/18 17:54 Dose: 5 mg Multivitamins (Hexavitamin) 1 tab PO DAILY [facility] Pantoprazole Sodium (Protonix Ec Tab) 40 mg PO DAILY [facility] - Labs Labs: 03/09/18 08:14 03/09/18 08:14 - Additional Findings Additional findings: - Constitutional Appears: Older Than Stated Age, Chronically Ill - Head Exam Head Exam: ATRAUMATIC, NORMOCEPHALIC - Eye Exam Eye Exam: PERRL, Scleral icterus Pupil Exam: NORMAL ACCOMODATION - ENT Exam ENT Exam: Mucous Membranes Moist - Respiratory Exam Respiratory Exam: Clear to Ausculation Bilateral, NORMAL BREATHING PATTERN. absent: Accessory Muscle Use, Rales, Rhonchi, Wheezes, Respiratory Distress - Cardiovascular Exam Cardiovascular Exam: REGULAR RHYTHM, +S1, +S2 - Extremities Exam Extremities Exam: Pedal Edema (3+ pitting b/l up to above knee) Additional comments: b/l lower extremity edema with venous stasis changes, superficial skin wounds - Neurological Exam Neurological Exam: Alert, Awake, Oriented x 3, aware of context of admission Additional comments: - Psychiatric Exam Psychiatric exam: Denies homicidal, suicidal ideation, pleasant - Skin Skin Exam: Warm Assessment and Plan - Assessment and Plan (Free Text) Plan: Hyperammonemia/Hepatic encephalopathy Ammonia 116 decreased to 80 Alcohol 115 Started on Lactulose 30 gm TID Restarted home Midodrine 5mg PO TID Suicide Idealization Psych Consulted, Dr. Bauman Per ED staff, patient stated he was kicked out of his sister's house and he wanted to drink poison and kill himself. Patient denied this to Resident Rolando. Placed on 1:1 sitter History of Atrial flutter/Prolonged QTc EKG today: NSR 76 bpm, normal axis, prolong QTc 495 Echocardiogram (01/02/18): LV mild dilation, EF 55-60%, Grade II relaxation abnormality, LA severely dilated, Mild MR, Mild TR, Mild pulm HTN Restart home Coreg to 6.25mg PO BID Hypomagnesia Mg 1.3 Mag Sulfate 1gram x 1 bag continue to monitor Diastolic CHF, chronic BNP 144 on admission CXR (03/09/18): No active disease Echocardiogram (01/02/18): LV mild dilation, EF 55-60%, Grade II relaxation abnormality, LA severely dilated, Mild MR, Mild TR, Mild pulm HTN Restarted home Coreg to 6.25mg PO BID Alcoholic Cirrhosis CT Liver protocol (03/2017): Nodular hepatic contour c/w cirrhosis. Upper abdominal/splenic varices patient has history alcohol abuse AST 65/ALT 33/Alk Phos 133 CIWA protocol Aspiration/Seizure/Fall precautions Started on Ativan 1mg IVP q3h PRN alcohol 115 Dementia Restarted home Namenda 10mg PO Daily PVD Restarted home Cilostazol 100mg PO BID Restarted home Aspiring 81mg PO daily Anemia upon admission, Hgb 10.5 (10.8 on 02/23) Monitor Restarted home Ferrous sulfate 325 mg PO daily Restarted home Folic Acid 1mg PO Daily Pancytopenia Likely due to liver cirrhosis/EtOH hx Prophylactic measures Protonix 40mg PO daily Lovenox Disposition: Pt chose to sign out CHRISSIE Parra PGY-2 All order and management per Dr. Ozuna.
[2018-03-10 07:26] LABS: ALB/GLOB RATIO 0.6 (1.0-2.1); ALBUMIN 2.5 g/dL (3.5-5.0); ALT/SGPT 28 U/L (21-72); AST/SGOT 60 U/L (17-59); BLOOD UREA NITROGEN 8 mg/dL (9-20); CALCIUM 7.5 mg/dl (8.6-10.4); GFR AFRICAN-AMERICAN > 60; GFR NON-AFRICAN AMERICAN > 60
[2018-03-10 07:28] LABS: BASO % 0.8 % (0.0-2.0); EOS # 0.1 K/uL (0.0-0.7); EOS % 5.5 % (0.0-4.0); HEMOGLOBIN 10.2 g/dL (12.0-18.0); LYMPH # 0.9 K/uL (1.0-4.3); LYMPH % 33.9 % (20.0-40.0); MEAN CORPUSCULAR HEMOGLOBIN 30.4 pg (27.0-31.0); MEAN CORPUSCULAR HGB CONC 33.8 g/dL (33.0-37.0); MEAN PLATELET VOLUME 8.2 fL (7.2-11.7); MONO # 0.4 K/uL (0.0-0.8); MONO % 15.1 % (0.0-10.0); NEUT # 1.2 K/uL (1.8-7.0); NEUT % 44.7 % (50.0-75.0); NRBC % 0.1 % (0.0-2.0); RBC 3.35 Mil/uL (4.40-5.90); RED CELL DISTRIBUTION WIDTH 21.4 % (11.5-14.5); WHITE BLOOD COUNT 2.6 K/uL (4.8-10.8)
[2018-03-10 08:11] VITALS: BP 134/81; TEMP 97.7; O2SAT 99
[2018-03-10] MEDS ORDERED: PANTOPRAZOLE 40 MG PO SCH (10:00)
[2018-03-10] MEDS ORDERED: Multiple Vitamins Tab PO SCH (10:00)
--- NOTE | 2018-03-10 11:44 | PCM.PSYCH ---
Initial Psychiatric Evaluation - Initial Psychiatric Evaluation Type of Admission: Voluntary Legal Status: Capacity Chief Complaint (in patient's own words): "I want to leave" History of Present Illness and Precipitating Events: Patient is a 47 year old male with a past medical history of hepatic encepahalopathy and alcohol abuse that was sent to the hospital by his sister for suicidal ideation. The patient states that he was joking around with his sister and telling her that he wants to kill himself. He states that this was a joke and he has no intent of doing so. The patient states that he does not have a drinking problem but has been drinking since the age of 11. He states that he drinks about 5 24 ounce cans of beer a week. The patient denies any intents of killing himself or hearing voices. He is alert and oriented to person, place, and time. Past Medical History: atrial flutter, PVD, hepatic encephalopathy Past Social history: patient lived with his sister who according to ED staff threw the patient out, he does not work and is on disability Current Medications: Active Medications Generic Name Dose Route Start Last Admin Trade Name Freq PRN Reason Stop Dose Admin Aspirin 81 mg 03/10/18 10:00 Aspirin Chewable PO DAILY NABIL Carvedilol 6.25 mg 03/09/18 18:00 03/09/18 17:54 Coreg PO 6.25 mg BID NABIL Administration Cilostazol 100 mg 03/09/18 18:00 03/09/18 17:54 Pletal PO 100 mg BID NABIL Administration Ferrous Sulfate 325 mg 03/10/18 10:00 Feosol PO DAILY NABIL Folic Acid 1 mg 03/10/18 10:00 Folic Acid PO DAILY NABIL Lactulose 30 gm 03/09/18 14:00 03/09/18 17:54 Enulose PO 30 gm TID NABIL Administration Lorazepam 1 mg 03/09/18 13:05 Ativan IVP Q3H PRN Symptoms of alcohol withdrawl Memantine 10 mg 03/10/18 10:00 Namenda PO DAILY NABIL Midodrine 5 mg 03/09/18 14:00 03/09/18 17:54 Proamatine PO 5 mg TID NABIL Administration Multivitamins 1 tab 03/10/18 10:00 Hexavitamin PO DAILY NABIL Pantoprazole Sodium 40 mg 03/10/18 10:00 Protonix Ec Tab PO DAILY NABIL Past Psychiatric History - Past Psychiatric History Previous Treatment History: None Pertinent Medical Hx (Current Medical&Sleep Prob, Allergies): Allergies Allergy/AdvReac Type Severity Reaction Status Date / Time No Known Allergies Allergy Verified 03/09/18 07:43 Folic Acid 1 mg PO DAILY #0 tab 11/21/15 Aspirin [Aspirin Chewable] 81 mg PO DAILY #30 chew 08/28/17 Cilostazol [Pletal] 100 mg PO BID #60 tab 08/28/17 Ferrous Sulfate 325 mg PO DAILY #30 tablet 08/28/17 Midodrine [Proamatine] 5 mg PO TID #90 tab 08/28/17 Multivitamins [Hexavitamin] 1 tab PO DAILY #30 tab 08/28/17 rifAXIMin [Xifaxan] 550 mg PO BID #60 tab 08/28/17 Dextromethorphan HBr/Quinidine [Nuedexta 20-10 mg Capsule] 1 each PO BID Fluticasone Nasal [Flonase] 0.05 mg NS DAILY 09/05/17 Magnesium Oxide [Magnesium] 400 mg PO BID 09/05/17 Memantine HCl 10 mg PO DAILY 09/05/17 Omeprazole 40 mg PO DAILY 09/05/17 Furosemide [Lasix] 20 mg PO BID #30 tab 09/08/17 Lactulose [Enulose] 30 gm PO DAILY #30 udc 09/08/17 Spironolactone [Aldactone] 25 mg PO DAILY #30 tab 09/08/17 Famotidine [Pepcid] 20 mg PO BID 03/09/18 Gabapentin [Neurontin] 400 mg PO TID 03/09/18 Lactulose [Enulose] 20 gm PO TID #42 udc 03/10/18 Review of Systems - Review of Systems All systems: reviewed and no additional remarkable complaints except - Psychiatric Psychiatric: Anxiety, Irritability Mental Status Examination - Personal Presentation Personal Presentation: Looks stated age - Affect Affect: Constricted - Motor Activity Motor Activity: Calm - Reliability in Providing Information Reliability in Providing Information: Fair - Speech Speech: Organized - Mood Mood: Anxious - Formal Thought Process Formal Thought Process: No Impairment - Obsessions/Compulsions Obsessions: No Compulsions: No - Cognitive Functions Orientation: Person, Place, Situation, Time Sensorium: Alert Attention/Concentration: Attentive Abstract Thinking: [place] Estimate of Intelligence: Below average Judgement: Imparied, as evidence by: Poor judgement, Imparied, as evidence by: Lack of insight into illness - Risk Risk: Diminished functioning - Limitations Limitations: Living alone DSM 5 DX - Recommended/Plan of Treatment Treatment Recommendations and Plan of Treatment: Pt psychiatrically stable and clear for discharge
--- NOTE | 2018-03-10 11:46 | CARD ---
APPROVED REPORT Date of service: 03/09/2018 EKG Measurement Heart [id number] [id number] <Conclusion> Normal sinus rhythm Prolonged QT Abnormal ECG
[2018-03-10 16:16] VITALS: PULSE 70
== END 2018-03-10 12:00 | disposition left against medical advice (07) | DRG 433 ==
LOC: C.ER 07:25 → C.9E 09:07 → C.6T 14:30
PROVIDERS: ADMIT Internal Medicine Pulmonary Disease; ATTEND Internal Medicine Pulmonary Disease
DX: K70.40 Alcoholic hepatic failure without coma (principal); F10.239 Alcohol dependence with withdrawal, unspecified; R45.851 Suicidal ideations; I48.92 Unspecified atrial flutter; E72.20 Disorder of urea cycle metabolism, unspecified; I50.32 Chronic diastolic (congestive) heart failure; D61.818 Other pancytopenia; F32.1 Major depressive disorder, single episode, moderate; I73.9 Peripheral vascular disease, unspecified; K70.30 Alcoholic cirrhosis of liver without ascites; F03.90 Unspecified dementia, unspecified severity, without behavioral disturbance, psychotic disturbance, mood disturbance, and anxiety; D64.9 Anemia, unspecified

== ENCOUNTER 2018-03-10 22:27 | Emergency (ER) | payer MEDICARE, OTHER ==
[2018-03-10 22:32] VITALS: BMI 50.6
[2018-03-10] MEDS ORDERED: Tetanus/Diphtheria Toxoids 0.5 ml Syringe IM ONE ×2 (23:13→23:21)
--- NOTE | 2018-03-11 01:37 | C.PDOC ---
History Of Present Illness 47 year old male presents to the ER via EMS for ETOH intoxication and facial injury. Patient was witnessed on the street falling onto his face by a bystander. He admits to drinking beer today. Patient complains of upper lip and nasal pain but otherwise has no other complaints. Time Seen by Provider: 03/10/18 22:50 Chief Complaint (Nursing): Trauma History Per: Patient, EMS History/Exam Limitations: no limitations Onset/Duration Of Symptoms: Hrs Current Symptoms Are (Timing): Still Present Suicide/Self Injury Attempted (Context): None Modifying Factor(s): Alcohol Severity: Mild Involuntary Hold By: None Recent travel outside of the [place]: No Past Medical History Reviewed: Historical Data, Nursing Documentation, Vital Signs Vital Signs: Last Vital Signs Temp 98.5 F 03/11/18 06:04 Pulse 87 03/11/18 06:04 Resp 16 03/11/18 06:04 BP 120/74 03/11/18 06:04 Pulse Ox 99 03/11/18 06:04 - Medical History PMH: Anxiety, Arthritis, Asthma, Bipolar Disorder, CHF, COPD (ASTHMA), Depression, Gall Bladder Disease, HTN, Schizophrenia Surgical History: Appendectomy, Cholecystectomy - [facility] Procedures FLUOROSCOPY OF RIGHT JUGULAR VEINS, GUIDANCE (11/14/15) INSERT INFUSION DEV IN R INT JUGULAR VEIN, PERC (11/14/15) INTRODUCTION OF SERUM/TOX/VACCINE INTO MUSCLE, PERC APPROACH (05/28/17) REMOVAL OF INFUSION DEVICE FROM UPPER VEIN, CURRICULUM ADVISORY TEACHER APPROACH (11/14/15) Family History: States: No Known Family Hx - Social History Hx Tobacco Use: No Hx Alcohol Use: No Hx Substance Use: No (PT DENIES) - Immunization History Hx Tetanus Toxoid Vaccination: No Hx Influenza Vaccination: Yes Hx Pneumococcal Vaccination: No Review Of Systems Constitutional: Negative for: Fever, Chills ENT: Positive for: Nose Pain, Mouth Pain Cardiovascular: Negative for: Chest Pain Respiratory: Negative for: Shortness of Breath Gastrointestinal: Negative for: Nausea, Vomiting, Abdominal Pain Neurological: Negative for: Headache, Dizziness Physical Exam - Physical Exam Appears: Well, Non-toxic, Unkempt, Other (mildly intoxicated) Skin: Normal Color, Warm, Dry Head: Normacephalic Eye(s): bilateral: Normal Inspection, PERRL, EOMI Nose: No Epistaxis, No Deformity, Tenderness (Mild TTP), No Septal Hematoma Oral Mucosa: Moist, No Other (Lacerations) Tongue: Normal Appearing, No Laceration Lips: Swelling (mild, upper lip), Abrasion (2cm to upper lip) Teeth: Other (Poor dentition) Neck: Normal, Normal ROM, No Midline Cervical Tenderness, No Paracervical Tenderness, No Step Off Deformity, Supple Chest: Symmetrical, No Deformity, No Tenderness Cardiovascular: Rhythm Regular Respiratory: Normal Breath Sounds, No Rales, No Rhonchi, No Wheezing Gastrointestinal/Abdominal: Normal Exam, Bowel Sounds, Soft, No Tenderness Extremity: Normal ROM, Pedal Edema (+2 pitting, chronic skin changes B/L LEs) Pulses: Left Dorsalis Pedis: Normal, Right Dorsalis Pedis: Normal Neurological/Psych: Oriented x3, Other (mildly intoxicated ) ED Course And Treatment O2 Sat by Pulse Oximetry: 98 (Room air) Pulse Ox Interpretation: Normal - CT Scan/US CT Head Other Rad Studies (CT/US): Read By Radiologist, Radiology Report Reviewed CT/US Interpretation: EXAM: CT Head Without Intravenous Contrast. EXAM DATE/ TIME: 03/10/2018 11:04 PM. CLINICAL HISTORY: 47 years old, male; Injury or trauma; Fall; Initial encounter; Abrasion; Eye and forehead; Bilateral;. Additional info: Drunk, fall hit head and face. TECHNIQUE: Axial computed tomography images of the head/brain without intravenous contrast. All CT scans at this facility use at least one of these dose optimization techniques: automated. exposure control; mA and/or kV adjustment per patient size ( includes targeted exams where dose is. matched to clinical indication); or iterative reconstruction. Coronal and sagittal reformatted images were created and reviewed. COMPARISON: CT - HEAD W/O CONTRAST 2016-01-20 07:52. FINDINGS: Brain: Mild atrophy. No intracranial hemorrhage. No mass. Few scattered foci of decreased. attenuation within periventricular/subcortical white matter. No edema. Ventricles: No hydrocephalus. Bones/joints: No calvarial fracture. Mastoid air cells: No mastoid effusion. Soft tissues: Minimal scalp swelling. Vasculature: Mild atherosclerotic disease of intracranial arteries. IMPRESSION : 1. No intracranial hemorrhage. 2. Probable chronic microvascular ischemic changes. 3. See facial bone CT report for additional details. CT Maxillofacial Other Rad Studies (CT/US): Read By Radiologist, Radiology Report Reviewed CT/US Interpretation: EXAM: CT Maxillofacial Without Intravenous Contrast. EXAM DATE/TIME: 03/10/2018 11:04 PM. CLINICAL HISTORY: 47 years old, male; Injury or trauma; Fall; Initial encounter; Abrasion; Eyelid and forehead and nose;. Uppeupper rightr right and lower right; Additional info: Face injury R/ O FX. TECHNIQUE: Axial computed tomography images of the face without intravenous contrast. All CT scans at this facility use at least one of these dose optimization techniques: automated. exposure control; mA and/or kV adjustment per patient size (includes targeted exams where dose is. matched to clinical indication); or iterative reconstruction. Coronal and sagittal reformatted images were created and reviewed. COMPARISON: No relevant prior studies available. FINDINGS: Bones/joints: Degenerative changes of cervical spine. No acute fracture. Soft tissues: Minimal facial soft tissue swelling. Dermal calcifications. Orbits: Unremarkable as visualized. Sinuses: Scattered minimal to mild mucosal thickening. No air-fluid levels. Vasculature: Mild atherosclerotic disease. Mastoid air cells: Minimal fluid within LEFT mastoid. IMPRESSION: No fracture. Progress Note: CT head and CT maxillofacial, accucheck ordered and reviewed. Patient given IM tetanus vaccination. Reevaluation Time: 06:00 Reassessment Condition: Improved (On reassessment, patient is AAOx3, ambulating normally in the ED. CT head and maxillofacial neg for bleed, fractures. Patient is clinically sober at this time, will discharge.) Disposition - Disposition Referrals: [facility] [Outside] Disposition: HOME/ ROUTINE Disposition Time: 06:00 Condition: STABLE Instructions: Closed Head Injury (DC), Alcohol Abuse and Alcoholism (DC) Forms: [employer] (Maltese) Print Language: AUSTRIAN - POA Present On Arrival: Falls Or Trauma - Clinical Impression Clinical Impression: Alcohol abuse with intoxication, Closed head injury, Abrasion - Scribe Statement The provider has reviewed the documentation as recorded by the Scribzan Moncada All medical record entries made by the Scribe were at my direction and personally dictated by me. I have reviewed the chart and agree that the record accurately reflects my personal performance of the history, physical exam, medical decision making, and the department course for this patient. I have also personally directed, reviewed, and agree with the discharge instructions and disposition.
[2018-03-11 06:06] VITALS: BP 120/74; PULSE 87; RESP 16; TEMP 98.5
--- NOTE | 2018-03-11 07:46 | CT ---
Date of service: 03/10/2018 PROCEDURE: CT HEAD WITHOUT CONTRAST. HISTORY: drunk, fall hit head and face COMPARISON: None available. TECHNIQUE: Axial computed tomography images were obtained through the head/brain without intravenous contrast. Radiation dose: Total exam DLP = 805 mGy-cm. This CT exam was performed using one or more of the following dose reduction techniques: Automated exposure control, adjustment of the mA and/or kV according to patient size, and/or use of iterative reconstruction technique. FINDINGS: HEMORRHAGE: No intracranial hemorrhage. BRAIN: Mild atrophy. Few scattered foci of decreased attenuation within the periventricular and subcortical white matter suggestive for chronic microvascular ischemic change. VENTRICLES: Unremarkable. No hydrocephalus. CALVARIUM: Unremarkable. PARANASAL SINUSES: Unremarkable as visualized. No significant inflammatory changes. MASTOID AIR CELLS: Unremarkable as visualized. No inflammatory changes. OTHER FINDINGS: Mild scalp swelling. Mild atherosclerotic disease of the intracranial arteries. IMPRESSION: No acute intracranial hemorrhage. Probable chronic microvascular ischemic changes. Please see separate report for evaluation of the facial bones. These findings were preliminarily reported at 12:33 a.m. on 03/11/[address] Ramos Guerra from [facility].
--- NOTE | 2018-03-11 07:56 | CT ---
CT maxillofacial History: Injury. Comparison: None available. Technique: Multiple contiguous axial images were performed through the face without the use of intravenous contrast. Subsequently, sagittal and coronal reformatted images were obtained. This CT exam was performed using one or more of the following dose reduction techniques: Automated exposure control, adjustment of the mA and/or kV according to patient size, and/or use of iterative reconstruction technique. Findings: Degenerative changes in the cervical spine. Mild facial soft tissue swelling. Dermal calcifications. Visualized orbits are preserved. Mild mucosal thickening of the visualized paranasal sinuses. Mild atherosclerotic disease in the visualized vasculature. Small amount of fluid within the left mastoid air cells. Impression: Small amount of fluid within the left mastoid air cells. No evidence for acute displaced fracture. Additional findings as above. These findings were preliminarily reported at 12:38 a.m. on 03/11/[address] Ramos Guerra from [facility].
[2018-03-13 12:51] VITALS: O2SAT 98
== END 2018-03-11 06:19 | disposition home or self-care (01) ==
LOC: C.ER 22:27
DX: S00.511A Abrasion of lip, initial encounter (principal); W18.30XA Fall on same level, unspecified, initial encounter; Y92.410 Unspecified street and highway as the place of occurrence of the external cause; F10.129 Alcohol abuse with intoxication, unspecified; Y90.9 Presence of alcohol in blood, level not specified

== ENCOUNTER 2018-03-16 18:42 | Emergency (ER) | payer MEDICARE, OTHER ==
[2018-03-16 18:43] VITALS: BMI 40.6
--- NOTE | 2018-03-16 19:27 | C.PDOC ---
History Of Present Illness 47yo male, with alleged history of bipolar disorder, liver cirrhosis, alcoholism , brought to ER by his sister as the patient has been increasingly aggressive. She states the patient is non-compliant with his medications and reports he wants to "take a knife" and hurt other people. She states the patient drank 2 drinks today. She states the patient lives alone but [place] and has been living in her home for a week. Patient is also reported to have fallen and injured the left side of his head. A full HPI is limited as patient is intoxicated and uncooperative. Time Seen by Provider: 03/16/18 18:51 Chief Complaint (Nursing): Psychiatric Evaluation History Per: Family History/Exam Limitations: intoxication Modifying Factor(s): Alcohol Past Medical History Reviewed: Historical Data, Nursing Documentation, Vital Signs Vital Signs: Last Vital Signs Temp 98.2 F 03/16/18 20:44 Pulse 103 H 03/16/18 21:45 Resp 20 03/16/18 21:45 BP 130/80 03/16/18 21:45 Pulse Ox 96 03/16/18 21:45 - Medical History PMH: Anxiety, Arthritis, Asthma, Bipolar Disorder, CHF, COPD (ASTHMA), Depression, Gall Bladder Disease, HTN, Schizophrenia Denies: Diabetes, Hepatitis, Chronic Kidney Disease, Sexually Transmitted Disease Surgical History: Appendectomy, Cholecystectomy Denies: CABG, Coronary Stent, Pacemaker, Tonsillectomy - [facility] Procedures FLUOROSCOPY OF RIGHT JUGULAR VEINS, GUIDANCE (11/14/15) INSERT INFUSION DEV IN R INT JUGULAR VEIN, PERC (11/14/15) INTRODUCTION OF SERUM/TOX/VACCINE INTO MUSCLE, PERC APPROACH (05/28/17) REMOVAL OF INFUSION DEVICE FROM UPPER VEIN, AIRPORT REPRESENTATIVE APPROACH (11/14/15) Family History: States: Unknown Family Hx - Social History Hx Tobacco Use: No Hx Alcohol Use: Yes Hx Substance Use: No (PT DENIES) - Immunization History Hx Tetanus Toxoid Vaccination: No Hx Influenza Vaccination: Yes Hx Pneumococcal Vaccination: No Review Of Systems Review Of Systems: ROS cannot be obtained secondary to pt's inabilty to answer questions. (patient is intoxicated, uncooperative) Neurological: Positive for: Other (left head injury) Physical Exam - Physical Exam Skin: Normal Color Head: Normacephalic, No Tenderness, Other (contusion to left forehead) Eye(s): bilateral: Normal Inspection Neck: Supple Cardiovascular: Rhythm Regular Extremity: Normal ROM Neurological/Psych: Oriented x3 Gait: Unsteady (due to alcohol use) Additional Physical Exam Comments: A full exam is limited as patient is uncooperative. ED Course And Treatment - Laboratory Results Result Diagrams: 03/16/18 19:31 03/16/18 19:31 Medical Decision Making Medical Decision Making: Assessment: Alcohol abuse, head injury Plan: -- CT Head w/o contrast -- Labs -- UDS -- Urinalysis chemical restraints administered secondary to patient agitation and to protect patient and staff case s/o to Dr. Aguilar at 1 am pending sobriety and crisis evaluation. ct head without contast - nad Disposition - Disposition Disposition Time: 01:00 Condition: FAIR Forms: [facility] (Polish) - Clinical Impression Clinical Impression: Alcohol intoxication - Scribe Statement The provider has reviewed the documentation as recorded by the Kellyibe Erica Ayon Provider Attestation: All medical record entries made by the Scribe were at my direction and personally dictated by me. I have reviewed the chart and agree that the record accurately reflects my personal performance of the history, physical exam, medical decision making, and the department course for this patient. I have also personally directed, reviewed, and agree with the discharge instructions and disposition. Physician Patient Turnover Patient Signed Over To: Mario Alberto Aguilar
[2018-03-16 19:35] LABS: BASO % 0.6 % (0.0-2.0); EOS # 0.2 K/uL (0.0-0.7); EOS % 3.7 % (0.0-4.0); HEMOGLOBIN 12.1 g/dL (12.0-18.0); LYMPH # 2.1 K/uL (1.0-4.3); MEAN CORPUSCULAR HEMOGLOBIN 30.1 pg (27.0-31.0); MEAN CORPUSCULAR HGB CONC 33.8 g/dL (33.0-37.0); MEAN PLATELET VOLUME 7.3 fL (7.2-11.7); MONO # 0.5 K/uL (0.0-0.8); MONO % 10.5 % (0.0-10.0); NEUT # 1.8 K/uL (1.8-7.0); NEUT % 39.2 % (50.0-75.0); NRBC % 0.1 % (0.0-2.0); RBC 4.03 Mil/uL (4.40-5.90); RED CELL DISTRIBUTION WIDTH 21.2 % (11.5-14.5); WHITE BLOOD COUNT 4.6 K/uL (4.8-10.8)
[2018-03-16 19:48] LABS: ALB/GLOB RATIO 0.6 (1.0-2.1); ALBUMIN 3.2 g/dL (3.5-5.0); ALT/SGPT 38 U/L (21-72); AST/SGOT 82 U/L (17-59); BLOOD UREA NITROGEN 3 mg/dL (9-20); CALCIUM 7.9 mg/dl (8.6-10.4); GFR AFRICAN-AMERICAN > 60; GFR NON-AFRICAN AMERICAN > 60
[2018-03-16 20:38] LABS: URINE BILIRUBIN NEGATIVE (NEGATIVE); URINE BLOOD NEGATIVE (NEGATIVE); URINE CLARITY Clear (Clear); URINE COLOR Straw (YELLOW); URINE GLUCOSE (UA) NORMAL (Normal); URINE LEUKOCYTE ESTERASE NEG Leu/uL (Negative); URINE PROTEIN NEGATIVE (NEGATIVE); URINE UROBILINOGEN NORMAL mg/dL (0.2-1.0)
[2018-03-16 20:55] LABS: BARBITURATES, UR NEGATIVE (NEGATIVE); BENZODIAZEPINES, UR NEGATIVE (NEGATIVE); OPIATES, UR NEGATIVE (NEGATIVE); PHENCYCLIDINE, UR NEGATIVE (NEGATIVE)
--- NOTE | 2018-03-17 06:55 | CT ---
Date of service: 03/16/2018 PROCEDURE: CT HEAD WITHOUT CONTRAST. HISTORY: head injury COMPARISON: CT head dated 03/10/2018 TECHNIQUE: Axial computed tomography images were obtained through the head/brain without intravenous contrast. Radiation dose: Total exam DLP = 870 mGy-cm. This CT exam was performed using one or more of the following dose reduction techniques: Automated exposure control, adjustment of the mA and/or kV according to patient size, and/or use of iterative reconstruction technique. FINDINGS: HEMORRHAGE: No intracranial hemorrhage. BRAIN: Mild atrophy. Scattered focal lucencies in the subcortical and periventricular white matter suggestive for chronic microvascular ischemic change. VENTRICLES: Unremarkable. No hydrocephalus. CALVARIUM: Unremarkable. PARANASAL SINUSES: Scattered mucosal thickening of the ethmoid air cells. Scattered mucosal thickening of the remainder of the paranasal sinuses. MASTOID AIR CELLS: Unremarkable as visualized. No inflammatory changes. OTHER FINDINGS: Suboptimal patient positioning. Mild scalp swelling. Mild atherosclerotic disease of the intracranial arteries. IMPRESSION: No acute intracranial hemorrhage. Chronic microvascular ischemic changes. Additional findings as above. These findings were preliminarily reported at 8:25 p.m. on 03/16/[address] Ramos Guerra from [facility].
--- NOTE | 2018-03-17 08:58 | RAD ---
Chest x-ray single frontal view History: Psychiatric screen. Comparison: 03/09/2018 Findings: Diffuse increased interstitial lung markings which may represent underlying edema and or infiltrate. Clinical correlation. Right hilar consolidative changes. Right suprahilar prominence. Cardiomegaly. Degenerative changes in the spine and shoulders. Deformity of a left lateral rib. Impression: Diffuse increased interstitial lung markings which may represent underlying edema and or infiltrate. Clinical correlation. Right hilar consolidative changes. Right suprahilar prominence. Cardiomegaly. Degenerative changes in the spine and shoulders. Deformity of a left lateral rib.
[2018-03-17 10:27] LABS: TROPONIN I 0.024 ng/mL (0.00-0.120)
[2018-03-17 10:30] VITALS: BP 137/84; PULSE 86; RESP 18; TEMP 98; O2SAT 98
== END 2018-03-17 11:01 | disposition home or self-care (01) ==
LOC: C.ER 18:42
DX: F10.129 Alcohol abuse with intoxication, unspecified (principal); Y90.8 Blood alcohol level of 240 mg/100 ml or more; I11.0 Hypertensive heart disease with heart failure; I50.9 Heart failure, unspecified; F41.9 Anxiety disorder, unspecified; K74.60 Unspecified cirrhosis of liver; F20.9 Schizophrenia, unspecified
CPT/HCPCS: 70450; 71045; 80053; 81001; 83880; 84484; 85025; 96372; 99285; G0480; J1630; J2060

== ENCOUNTER 2018-03-17 20:58 | Inpatient (IN) | payer MEDICARE, OTHER ==
[2018-03-17 20:58] VITALS: BMI 40.6
[2018-03-17] MEDS ORDERED: Alum-Mag Hydrox-Simethicone Susp (30 mL) PO STA (21:38)
[2018-03-17] MEDS ORDERED: Aluminum Hydroxide/Magnesium Hydroxide Susp (30 mL) ONE (21:44)
--- NOTE | 2018-03-17 22:05 | C.PDOC ---
History Of Present Illness 47 year old male is brought to the ED by EMS for evaluation. Patient was seen and discharged from this ED earlier today for concerns of alcohol intoxication. Patient returns to the ED with complaint of epigastric abdominal pain and admits to drinking alcohol earlier today. Patient denies fever, chills, shortness of breath. Chief Complaint (Nursing): Substance Abuse History Per: Patient, EMS History/Exam Limitations: no limitations Onset/Duration Of Symptoms: Hrs Current Symptoms Are (Timing): Still Present Suicide/Self Injury Attempted (Context): None Modifying Factor(s): Alcohol Associated Symptoms: denies: Suicidal Thoughts, Suicidal Plan Involuntary Hold By: None Recent travel outside of the [place]: No Additional History Per: Patient, EMS Past Medical History Reviewed: Historical Data, Nursing Documentation, Vital Signs Vital Signs: Last Vital Signs Temp 98 F 03/17/18 21:01 Pulse 110 H 03/17/18 21:01 Resp 20 03/17/18 21:01 BP 126/86 03/17/18 21:01 Pulse Ox 98 03/18/18 04:44 - Medical History PMH: Anxiety, Arthritis, Asthma, Bipolar Disorder, CHF, COPD (ASTHMA), Depression, Gall Bladder Disease, HTN, Schizophrenia Denies: Diabetes, Hepatitis, HIV, Chronic Kidney Disease, Seizures, Sexually Transmitted Disease Other PMH: Hx of atrial flutter Surgical History: Appendectomy, Cholecystectomy Denies: CABG, Coronary Stent, Pacemaker, Tonsillectomy - [facility] Procedures FLUOROSCOPY OF RIGHT JUGULAR VEINS, GUIDANCE (11/14/15) INSERT INFUSION DEV IN R INT JUGULAR VEIN, PERC (11/14/15) INTRODUCTION OF SERUM/TOX/VACCINE INTO MUSCLE, PERC APPROACH (05/28/17) REMOVAL OF INFUSION DEVICE FROM UPPER VEIN, HALF SECTION IRONER APPROACH (11/14/15) Family History: States: Unknown Family Hx - Social History Hx Tobacco Use: No Hx Alcohol Use: Yes Hx Substance Use: No (PT DENIES) - Immunization History Hx Tetanus Toxoid Vaccination: No Hx Influenza Vaccination: No Hx Pneumococcal Vaccination: No Review Of Systems Respiratory: Negative for: Shortness of Breath Gastrointestinal: Positive for: Abdominal Pain (epigastric ) Physical Exam - Physical Exam Appears: Non-toxic, No Acute Distress Skin: Normal Color, Warm, Dry Head: Atraumatic, Normacephalic Eye(s): bilateral: Normal Inspection Oral Mucosa: Moist Throat: Normal Neck: Normal, Supple Chest: Symmetrical, No Deformity, No Tenderness Cardiovascular: Rhythm Irregular, No Murmur, No JVD Respiratory: Normal Breath Sounds, No Rales, No Rhonchi, No Wheezing Gastrointestinal/Abdominal: Soft, Tenderness (mild, epigastric ), No Guarding, No Rebound Extremity: Normal ROM, Capillary Refill (less than 2 seconds ), Other (2+ pitting edema to bilateral lower extremities ) Extremity: Bilateral: Other (leg edema) Pulses: Left Dorsalis Pedis: Normal, Right Dorsalis Pedis: Normal Neurological/Psych: Other (alert, conscious and oriented. no focal deficits ) ED Course And Treatment - Laboratory Results Result Diagrams: 03/18/18 02:26 03/18/18 02:26 ECG: Interpreted By Me, Viewed By Me ECG Rhythm: Atrial Flutter, ST/T Changes ECG Interpretation: No Acute Changes, Abnormal Interpretation Of ECG: atrial flutter with varying av block, nonspc. ST-T abnormality., no acute change. Rate From EC O2 Sat by Pulse Oximetry: 98 (on RA) Pulse Ox Interpretation: Normal - Radiology CXR: Read By Radiologist - Other Rad CXR X-Ray: Interpreted by Me, Viewed By Me, Read By Radiologist Interpretation: Chest x-ray single frontal view. History: Psychiatric screen. Comparison: 03/09/2018. Findings: Diffuse increased interstitial lung markings which may represent underlying edema and or infiltrate. Clinical correlation. Right hilar consolidative changes. Right suprahilar prominence. Cardiomegaly. Degenerative changes in the spine and shoulders. Deformity of a left lateral rib. Impression: Diffuse increased interstitial lung markings which may represent underlying edema and or infiltrate. Clinical correlation. Right hilar consolidative changes. Right suprahilar prominence. Cardiomegaly. Degenerative changes in the spine and shoulders. Deformity of a left lateral rib. Progress Note: Maalox PO and Pepcid PO given. Disposition Discussed With : Marisa Ozuna Doctor Will See Patient In The: Hospital Counseled Patient/Family Regarding: Diagnosis - Disposition Disposition: HOSPITALIZED Disposition Time: 05:16 Condition: STABLE Forms: [facility] (Kosovan) - POA Present On Arrival: None - Clinical Impression Clinical Impression: Cardiac arrhythmia, Atrial flutter, CHF (congestive heart failure), Alcohol abuse - Scribe Statement The provider has reviewed the documentation as recorded by the Scribe (Soco Flores) Provider Attestation: All medical record entries made by the Scribe were at my direction and personally dictated by me. I have reviewed the chart and agree that the record accurately reflects my personal performance of the history, physical exam, medical decision making, and the department course for this patient. I have also personally directed, reviewed, and agree with the discharge instructions and disposition.
[2018-03-18 02:32] LABS: BASO % 0.7 % (0.0-2.0); EOS # 0.2 K/uL (0.0-0.7); EOS % 6.7 % (0.0-4.0); HEMOGLOBIN 12.3 g/dL (12.0-18.0); LYMPH # 1.3 K/uL (1.0-4.3); LYMPH % 52.3 % (20.0-40.0); MEAN CELL VOLUME 90.6 fL (80.0-94.0); MEAN CORPUSCULAR HEMOGLOBIN 30.1 pg (27.0-31.0); MEAN CORPUSCULAR HGB CONC 33.2 g/dL (33.0-37.0); MEAN PLATELET VOLUME 7.8 fL (7.2-11.7); MONO # 0.4 K/uL (0.0-0.8); MONO % 14.5 % (0.0-10.0); NEUT # 0.7 K/uL (1.8-7.0); NEUT % 25.8 % (50.0-75.0); NRBC % 0.2 % (0.0-2.0); RBC 4.08 Mil/uL (4.40-5.90); RED CELL DISTRIBUTION WIDTH 21.3 % (11.5-14.5); WHITE BLOOD COUNT 2.5 K/uL (4.8-10.8)
[2018-03-18 02:50] LABS: ALB/GLOB RATIO 0.5 (1.0-2.1); ALBUMIN 2.9 g/dL (3.5-5.0); ALT/SGPT 29 U/L (21-72); AST/SGOT 81 U/L (17-59); BLOOD UREA NITROGEN 3 mg/dL (9-20); CALCIUM 7.9 mg/dl (8.6-10.4); GFR AFRICAN-AMERICAN > 60; GFR NON-AFRICAN AMERICAN > 60; LIPASE 281 U/L (23-300)
[2018-03-18 02:54] LABS: B-TYPE NATRIURETIC PEPTIDE 171 pg/mL (0-450)
[2018-03-18] MEDS ORDERED: Iodixanol 320 MG/ML 100 ML BOTTLE IV ONE (03:41)
[2018-03-18] MEDS ORDERED: Barium Sulfate Susp 0.1% w/v, 0.1% w/w 450 mL Bottle PO ONE (03:41)
[2018-03-18] MEDS ORDERED: Potassium Chloride 20 mEq/15 ml LIQ UD PO STA (04:27)
[2018-03-18] MEDS ORDERED: Potassium Chloride 20 mEq ER Tab PO ONE (04:36)
[2018-03-18] MEDS ORDERED: Enoxaparin 40 mg Syringe SC ONE (05:35)
[2018-03-18] MEDS ORDERED: Enoxaparin 40 mg Syringe ONE (05:39)
[2018-03-18 06:16] VITALS: RESP 20
[2018-03-18 08:27] VITALS: BP 128/77; TEMP 98; O2SAT 95
[2018-03-18 08:49] VITALS: PULSE 112
[2018-03-18] MEDS ORDERED: Enoxaparin 40 mg Syringe SC SCH (10:00)
--- NOTE | 2018-03-18 11:32 | NM ---
Date of service: 03/18/2018 COMPARISON: Chest radiograph 03/17/2018. TECHNIQUE: mCi technetium 99-m Xe-133 Gas. mCI technetium 99-m MAA administered intravenously. FINDINGS: VENTILATION COMPONENT: Mildly heterogeneous uptake without large defect appreciated. PERFUSION COMPONENT: Minimal matched perfusion defects. No significant perfusion mismatches identified bilaterally. IMPRESSION: Lowprobability ventilation perfusion scan for pulmonary embolism.
--- NOTE | 2018-03-20 11:37 | HP ---
HISTORY OF PRESENT ILLNESS: The patient is a 47-year-old man with history of liver disease, palpitations, alcohol abuse, cardiac arrhythmia. The patient explained the risks and benefits, advised admission. PHYSICAL EXAMINATION: GENERAL: The patient is awake and alert. VITAL SIGNS: Temperature 98, pulse 90. HEENT: Within normal limits. NECK: Supple. CHEST: Symmetrical. HEART: Regular. ABDOMEN: Soft. EXTREMITIES: No edema. IMPRESSION: Cardiac arrhythmia , with supportive care. Marisa Ozuna MD
== END 2018-03-18 11:20 | disposition left against medical advice (07) | DRG 310 ==
LOC: C.ER 20:58 → C.6T 03-18 05:18
PROVIDERS: ADMIT Internal Medicine Pulmonary Disease; ATTEND Internal Medicine Pulmonary Disease
DX: I48.92 Unspecified atrial flutter (principal); I11.0 Hypertensive heart disease with heart failure; F10.10 Alcohol abuse, uncomplicated; F20.9 Schizophrenia, unspecified; F31.9 Bipolar disorder, unspecified; I50.9 Heart failure, unspecified; J44.9 Chronic obstructive pulmonary disease, unspecified

== ENCOUNTER 2018-06-07 20:47 | Emergency (ER) | payer MEDICARE, OTHER ==
[2018-06-07 20:47] VITALS: BMI 40.6
--- NOTE | 2018-06-07 22:39 | C.PDOC ---
History Of Present Illness 47 year old male is brought to the ED by EMS for alcohol intoxication. Patient admits to drinking alcohol tonight. Patient denies SI/HI, hallucinations, CP, SOB, injury, fall, trauma, weakness, numbness. PMHx: cirrhosis, HTN, HLD, PVD, afib in the past, anemia and chronic ETOH abuse triple phase liver CT done at the time on 03/2017 and it did not reveal any sig. mass indicating HCC. PSHx: appendectomy Allergies: NKDA <Rosalba Schwarz - Last Filed: 06/08/18 01:07> History Per: Patient, EMS History/Exam Limitations: intoxication Onset/Duration Of Symptoms: Hrs Current Symptoms Are (Timing): Still Present Suicide/Self Injury Attempted (Context): None Modifying Factor(s): Alcohol Associated Symptoms: denies: Depression, Suicidal Thoughts, Suicidal Plan Additional History Per: Patient, EMS <Rosalba Schwarz - Last Filed: 06/08/18 01:07> <Brett Avelar - Last Filed: 06/08/18 05:10> Time Seen by Provider: 06/07/18 22:35 Chief Complaint (Nursing): Substance Abuse Past Medical History Reviewed: Historical Data, Nursing Documentation, Vital Signs Vital Signs: Last Vital Signs Temp 98.4 F 06/07/18 20:53 Pulse 107 H 06/07/18 20:53 Resp 19 06/07/18 20:53 BP 116/75 06/07/18 20:53 Pulse Ox 96 06/07/18 20:53 - Medical History PMH: Anxiety, Arthritis, Asthma, Atrial Fibrillation, Bipolar Disorder, CHF, [place] PD (ASTHMA), Depression, Gall Bladder Disease, HTN, Schizophrenia Denies: Diabetes, Hepatitis, HIV, Chronic Kidney Disease, Seizures, Sexually Transmitted Disease Surgical History: Appendectomy, Cholecystectomy Denies: CABG, Coronary Stent, Pacemaker, Tonsillectomy - [facility] Procedures FLUOROSCOPY OF RIGHT JUGULAR VEINS, GUIDANCE (11/14/15) INSERT INFUSION DEV IN R INT JUGULAR VEIN, PERC (11/14/15) INTRODUCTION OF SERUM/TOX/VACCINE INTO MUSCLE, PERC APPROACH (05/28/17) REMOVAL OF INFUSION DEVICE FROM UPPER VEIN, STITCHING DEPARTMENT SUPERVISOR APPROACH (11/14/15) Family History: States: Unknown Family Hx - Social History Hx Tobacco Use: No Hx Alcohol Use: Yes Hx Substance Use: No - Immunization History Hx Tetanus Toxoid Vaccination: No Hx Influenza Vaccination: No Hx Pneumococcal Vaccination: No <ChongRosalba Urbano Last Filed: 06/08/18 01:07> Vital Signs: Last Vital Signs Temp 97.8 F 06/08/18 01:03 Pulse 90 06/08/18 01:03 Resp 20 06/08/18 01:03 BP 126/70 06/08/18 01:03 Pulse Ox 96 06/08/18 01:08 - [facility] Procedures FLUOROSCOPY OF RIGHT JUGULAR VEINS, GUIDANCE (11/14/15) INSERT INFUSION DEV IN R INT JUGULAR VEIN, PERC (11/14/15) INTRODUCTION OF SERUM/TOX/VACCINE INTO MUSCLE, PERC APPROACH (05/28/17) REMOVAL OF INFUSION DEVICE FROM UPPER VEIN, STITCHING DEPARTMENT SUPERVISOR APPROACH (11/14/15) <Brett Avelar Last Filed: 06/08/18 05:10> Review Of Systems Constitutional: Negative for: Fever, Chills Cardiovascular: Negative for: Chest Pain Respiratory: Negative for: Cough Gastrointestinal: Negative for: Nausea, Vomiting Neurological: Negative for: Weakness, Numbness Psych: Negative for: Depression, Suicidal ideation <ChongRosalba Sundeep Last Filed: 06/08/18 01:07> Physical Exam - Physical Exam Appears: Non-toxic, No Acute Distress Skin: Normal Color, Warm, Dry Head: Atraumatic, Normacephalic Eye(s): bilateral: Normal Inspection Neck: Normal ROM, Supple Chest: Symmetrical Cardiovascular: Rhythm Regular Respiratory: Normal Breath Sounds, No Rales, No Rhonchi, No Wheezing Gastrointestinal/Abdominal: Soft, No Tenderness, No Guarding, No Rebound Extremity: Normal ROM, No Tenderness, No Swelling Neurological/Psych: Oriented x3, Normal Speech, Normal Cognition Gait: Steady <ChongRosalba Urbano Last Filed: 06/08/18 01:07> ED Course And Treatment O2 Sat by Pulse Oximetry: 96 (ON RA) Pulse Ox Interpretation: Normal <ChongRosalba Urbano Filed: 06/08/18 01:07> Disposition Counseled Patient/Family Regarding: Diagnosis - Disposition Disposition Time: 01:00 <Rosalba Schwarz Last Filed: 06/08/18 01:07> Counseled Patient/Family Regarding: Diagnosis - Disposition Disposition Time: 05:25 <Brett Avelar R - Last Filed: 06/08/18 05:10> - Disposition Referrals: [facility] [Outside] Condition: STABLE Instructions: Alcohol Abuse and Alcoholism (DC) Forms: [facility] (Kittitian) - Clinical Impression Clinical Impression: Alcohol abuse - Scribe Statement The provider has reviewed the documentation as recorded by the Scribe Benjamin Wall All medical record entries made by the Scribe were at my direction and personally dictated by me. I have reviewed the chart and agree that the record accurately reflects my personal performance of the history, physical exam, medical decision making, and the department course for this patient. I have also personally directed, reviewed, and agree with the discharge instructions and disposition. <Rosalba Schwarz - Last Filed: 06/08/18 01:07> Physician Patient Turnover Patient Signed Over To: Brett Avelar Handoff Comments: SOBRIETY <Rosalba Schwarz - Last Filed: 06/08/18 01:07>
[2018-06-08 01:05] VITALS: BP 126/70; PULSE 90; RESP 20; TEMP 97.8
[2018-06-08 01:08] VITALS: O2SAT 96
== END 2018-06-08 05:30 | disposition home or self-care (01) ==
LOC: C.ER 20:47
DX: F10.10 Alcohol abuse, uncomplicated (principal)

== ENCOUNTER 2018-06-22 08:43 | Observation (INO) | payer MEDICARE, OTHER ==
[2018-06-22 08:43] VITALS: BMI 40.6
[2018-06-22] MEDS ORDERED: Sodium Chloride 0.9% 1,000 ML IV ONE (09:05)
--- NOTE | 2018-06-22 09:10 | C.PDOC ---
History Of Present Illness 47 y/o male with history of Alcoholism, CHF and Hepatic Encephalopathy brought to ED by EMS for evaluation of " memory loss", one episode of dark stool last night. Patient admits he has not drank ETOH in 2 weeks . Otherwise, pt denies fever, chills, headache, dizziness, CP, SOB, dyspnea, palpitation, abd. pain, vomiting, hematemesis, back pain, UTI sx. Appears comfortable, not in any apparent distress. PMHx: cirrhosis, HTN, HLD, PVD, afib in the past, anemia and chronic ETOH abuse triple phase liver CT done at the time on 03/2017 and it did not reveal any sig. mass indicating HCC. PSHx: appendectomy Allergies: NKDA Time Seen by Provider: 06/22/18 09:00 Chief Complaint (Nursing): GI Problem History Per: Patient History/Exam Limitations: no limitations Onset/Duration Of Symptoms: Days Current Symptoms Are (Timing): Still Present Past Medical History Reviewed: Historical Data, Nursing Documentation, Vital Signs Vital Signs: Last Vital Signs Temp 97.8 F 06/22/18 08:49 Pulse 66 06/22/18 08:49 Resp 18 06/22/18 08:49 BP 133/75 06/22/18 08:49 Pulse Ox 100 06/22/18 08:49 - Medical History PMH: Anxiety, Arthritis, Asthma, Atrial Fibrillation, Bipolar Disorder, CHF, COPD (ASTHMA), Depression, Gall Bladder Disease, HTN, Schizophrenia Surgical History: Appendectomy, Cholecystectomy - [facility] Procedures FLUOROSCOPY OF RIGHT JUGULAR VEINS, GUIDANCE (11/14/15) INSERT INFUSION DEV IN R INT JUGULAR VEIN, PERC (11/14/15) INTRODUCTION OF SERUM/TOX/VACCINE INTO MUSCLE, PERC APPROACH (05/28/17) REMOVAL OF INFUSION DEVICE FROM UPPER VEIN, PAYROLL MACHINE OPERATOR APPROACH (11/14/15) Family History: States: No Known Family Hx - Social History Hx Tobacco Use: No Hx Alcohol Use: Yes Hx Substance Use: No - Immunization History Hx Tetanus Toxoid Vaccination: No Hx Influenza Vaccination: No Hx Pneumococcal Vaccination: No Review Of Systems Constitutional: Negative for: Fever, Chills Gastrointestinal: Positive for: Melena. Negative for: Vomiting, Abdominal Pain, Diarrhea Genitourinary: Negative for: Dysuria Musculoskeletal: Negative for: Back Pain Skin: Negative for: Rash Physical Exam - Physical Exam Appears: Well, Non-toxic, No Acute Distress Skin: Warm, Dry, No Rash Head: Normacephalic Eye(s): bilateral: PERRL, Scleral Icterus (mild) Nose: No Flaring, No Discharge Oral Mucosa: Moist, No Drooling Tongue: Normal Appearing Lips: Normal Appearing Neck: Normal ROM, Trachea Midline, Supple Cardiovascular: Rhythm Regular, No Murmur, No JVD, Other ((-) carotid bruits B/L) Respiratory: No Decreased Breath Sounds, No Accessory Muscle Use, No Rales, No Rhonchi, No Stridor, No Wheezing Gastrointestinal/Abdominal: Soft, No Tenderness, No Distention, No Guarding, No Rebound Back: No CVA Tenderness, No Vertebral Tenderness Extremity: Normal ROM, No Pedal Edema, Capillary Refill (<2 seconds), No Swelling Neurological/Psych: Oriented x3, Normal Speech, Normal Cognition ED Course And Treatment - Laboratory Results Result Diagrams: 06/22/18 09:35 06/22/18 09:35 ECG: Interpreted By Me, Viewed By Me ECG Rhythm: Sinus Rhythm Interpretation Of ECG: SR@66/min, NAD, no acute ST-T Changes. O2 Sat by Pulse Oximetry: 100 (RA) Pulse Ox Interpretation: Normal - Other Rad CXR X-Ray: Interpreted by Me, Read By Radiologist Interpretation: IMPRESSION: Cardiomegaly and pulmonary venous congestion- findings similar. No interval pathology noted. Old healed left rib fracture incidentally noted. Progress Note: Pt remained unchanged during the ED evaluation. case discussed with and admisison arranged for OBS with Dx: Dehydration, Hpatic encelopathy, abn electrolytes. Disposition - Disposition Disposition: HOSPITALIZED Disposition Time: 11:02 Condition: STABLE - Clinical Impression Clinical Impression: CHF (congestive heart failure), History of alcohol abuse, Electrolyte abnormality, Hepatic encephalopathy, Dehydration - PA / BIG 6 [employer]ER / Resident Statement MD/DO has reviewed & agrees with the documentation as recorded. - Scribe Statement The provider has reviewed the documentation as recorded by the Shanna Rodriguez All medical record entries made by the Scribe were at my direction and personally dictated by me. I have reviewed the chart and agree that the record accurately reflects my personal performance of the history, physical exam, medical decision making, and the department course for this patient. I have also personally directed, reviewed, and agree with the discharge instructions and disposition.
--- NOTE | 2018-06-22 09:25 | RAD ---
Date of service: 06/22/2018 PROCEDURE: CHEST RADIOGRAPH, 1 VIEW HISTORY: abd pain COMPARISON: 03/17/2018 FINDINGS: LUNGS: Bilateral diffuse increased pulmonary interstitial and vascular markings present. No consolidation appreciated. The vague increased opacity over both lung bases is attributed to summation of soft tissues due to body habitus and technique. PLEURA: No pneumothorax or pleural fluid seen. CARDIOVASCULAR: Cardiomegaly-similar. Pulmonary venous congestion-similar. There is absence of aortic atherosclerotic calcification on x-ray. OSSEOUS STRUCTURES: Old healed left rib fracture deformity-similar Thoracic spondylosis-similar VISUALIZED UPPER ABDOMEN: Normal. OTHER FINDINGS: None. IMPRESSION: Cardiomegaly and pulmonary venous congestion-findings similar. No interval pathology noted Old healed left rib fracture incidentally noted.
[2018-06-22] MEDS ORDERED: Sodium Chloride 0.9% 1,000 ML ONE (09:38)
[2018-06-22 09:41] LABS: EOS # 0.1 K/uL (0.0-0.7); EOS % 3.2 % (0.0-4.0); HEMOGLOBIN 13.2 g/dL (12.0-18.0); LYMPH % 32.6 % (20.0-40.0); MEAN CELL VOLUME 91.9 fL (80.0-94.0); MEAN CORPUSCULAR HEMOGLOBIN 31.2 pg (27.0-31.0); MEAN PLATELET VOLUME 7.9 fL (7.2-11.7); MONO # 0.6 K/uL (0.0-0.8); MONO % 18.5 % (0.0-10.0); NEUT # 1.4 K/uL (1.8-7.0); NEUT % 44.7 % (50.0-75.0); NRBC % 0.1 % (0.0-2.0); RBC 4.23 Mil/uL (4.40-5.90); RED CELL DISTRIBUTION WIDTH 18.6 % (11.5-14.5); WHITE BLOOD COUNT 3.1 K/uL (4.8-10.8)
[2018-06-22 09:52] LABS: ALB/GLOB RATIO 0.6 (1.0-2.1); ALBUMIN 3.7 g/dL (3.5-5.0); BLOOD UREA NITROGEN 8 mg/dL (9-20); CALCIUM 9.3 mg/dl (8.6-10.4); GFR NON-AFRICAN AMERICAN > 60; LIPASE 177 U/L (23-300)
[2018-06-22 09:54] LABS: ALT/SGPT 23 U/L (21-72); AST/SGOT 70 U/L (17-59)
[2018-06-22 10:38] LABS: INR 1.5; PROTHROMBIN TIME 15.9 SECONDS (9.7-12.2)
[2018-06-22 11:00] LABS: SQUAMOUS EPITHIAL 1 /hpf (0-5); URINE BILIRUBIN NEGATIVE (NEGATIVE); URINE BLOOD NEGATIVE (NEGATIVE); URINE CLARITY Clear (Clear); URINE COLOR Yellow (YELLOW); URINE GLUCOSE (UA) NORMAL (Normal); URINE LEUKOCYTE ESTERASE NEG Leu/uL (Negative); URINE PROTEIN NEGATIVE (NEGATIVE)
[2018-06-22 11:18] LABS: BARBITURATES, UR NEGATIVE (NEGATIVE); BENZODIAZEPINES, UR NEGATIVE (NEGATIVE); OPIATES, UR NEGATIVE (NEGATIVE); PHENCYCLIDINE, UR NEGATIVE (NEGATIVE)
--- NOTE | 2018-06-22 13:43 | CP.PCM.HP ---
History of Present Illness - History of Present Illness History of Present Illness: Hospitalist Note for Dr Grant cc: I'm weak and cant remember things, help me HPI: 47yo M PMHx of, Hepatic encephalopathy, ETOH cirrhosis, HTN, Hyperlipidemia, Morbid obesity, hx of TIA present with a one week history of feeling weak and confused. He feels tired and is unable to walk more than 3 block without getting fatigued and SOB. He states he has been compliant with his medications since his last discharge in from [facility]. Pt also complains of abdominal distention, itchiness and a dry cough lasting for 1 week as well. He has been having blurry vision for the past year. Pt last alcohol consumption was 1 week ago. Pt denies CP, SOB at rest, fc, nv, weight changes, dysuria. Of note Pt was recently admitted for similar symptoms and presentation in February, was seen by GI Dr Diamond recommending d/c home on Lasix and Aldactone and outpt EGD and Colonoscopy. ROS: Pos+ confusion, SOB with activity, itchiness, cough, blurry vision, abd distention, ETOH use 1 week ago NEG- CP, SOB at rest, Fever, chills, nausea, vomiting, weight change, diarrhea, blood in stools, epigastric pain, heartburn, night sweats, Present on Admission - Present on Admission Any Indicators Present on Admission: No Review of Systems - Review of Systems All systems: reviewed and no additional remarkable complaints except (as per HPI) Past Patient History - Infectious Disease Hx of Infectious Diseases: None - Tetanus Immunizations Tetanus Immunization: Unknown - Past Medical History & Family History Past Medical History?: Yes - Past Social History Smoking Status: Current Some Days Smoker - CARDIAC Hx Atrial Fibrillation: Yes Hx Congestive Heart Failure: Yes Hx Hypertension: Yes - PULMONARY Hx Asthma: Yes Hx Chronic Obstructive Pulmonary Disease (COPD): Yes (ASTHMA) - HEENT Hx HEENT Problems: No - RENAL Hx Chronic Kidney Disease: No - INTEGUMENTARY Hx Dermatological Problems: No - MUSCULOSKELETAL/RHEUMATOLOGICAL Hx Arthritis: Yes - GASTROINTESTINAL Hx Gall Bladder Disease: Yes - GENITOURINARY/GYNECOLOGICAL Hx Sexually Transmitted Disorders: No - PSYCHIATRIC Hx Anxiety: Yes Hx Bipolar Disorder: Yes Hx Depression: Yes Hx Schizophrenia: Yes Hx Substance Use: No - SURGICAL HISTORY Hx Appendectomy: Yes Hx Cholecystectomy: Yes - ANESTHESIA Hx Anesthesia: Yes Hx Anesthesia Reactions: No Hx Malignant Hyperthermia: No Meds Allergies/Adverse Reactions: Allergies Allergy/AdvReac Type Severity Reaction Status Date / Time No Known Allergies Allergy Verified 06/07/18 20:57 Physical Exam - Additional Findings Additional findings: Appears: Well, Non-toxic, No Acute Distress Skin: Warm, Dry, No Rash Head: Normacephalic Eye(s): bilateral: PERRL, Scleral Icterus (mild) Nose: No Flaring, No Discharge Oral Mucosa: Moist, No Drooling Tongue: Normal Appearing Lips: Normal Appearing Neck: Normal ROM, Trachea Midline, Supple Cardiovascular: Rhythm Regular, No Murmur, No JVD, Other ((-) carotid bruits B/L) Respiratory: No Decreased Breath Sounds, No Accessory Muscle Use, No Rales, No Rhonchi, No Stridor, No Wheezing Gastrointestinal/Abdominal: Soft, No Tenderness, No Distention, No Guarding, No Rebound Back: No CVA Tenderness, No Vertebral Tenderness Extremity: Normal ROM, No Pedal Edema, Capillary Refill (<2 seconds), No Swelling Neurological/Psych: Oriented x3, Normal Speech, Normal Cognition Results - Vital Signs Recent Vital Signs: Last Vital Signs Temp 97.6 F 06/22/18 11:50 Pulse 70 06/22/18 12:46 Resp 18 06/22/18 12:46 BP 140/78 06/22/18 12:46 Pulse Ox 100 06/22/18 12:46 - Labs Result Diagrams: 06/22/18 09:35 06/22/18 09:35 Labs: Laboratory Results - last 24 hr 06/22/18 06/22/18 06/22/18 09:35 09:35 09:35 WBC 3.1 L RBC 4.23 L Hgb 13.2 Hct 38.8 MCV 91.9 MCH 31.2 H MCHC 34.0 RDW 18.6 H Plt Count 179 MPV 7.9 Neut % (Auto) 44.7 L Lymph % (Auto) 32.6 [place] % (Auto) 18.5 H Eos % (Auto) 3.2 Baso % (Auto) 1.0 Neut # (Auto) 1.4 L Lymph # (Auto) 1.0 [place] # (Auto) 0.6 Eos # (Auto) 0.1 Baso # (Auto) 0.0 PT 15.9 H INR 1.5 APTT 37 H Sodium 140 Potassium 3.5 L Chloride 102 Carbon Dioxide 28 Anion Gap 14 BUN 8 L Creatinine 0.5 L Est GFR ( Amer) > 60 Est GFR (Non-Af Amer) > 60 Random Glucose 91 Calcium 9.3 Magnesium 1.2 L Total Bilirubin 2.5 H AST 70 H ALT 23 Alkaline Phosphatase 193 H D Ammonia Troponin I 0.0270 Total Protein 9.9 H Albumin 3.7 Globulin 6.2 H Albumin/Globulin Ratio 0.6 L Lipase 177 Urine Color Urine Clarity Urine pH Ur Specific [place] Urine Protein Urine Glucose (UA) Urine Ketones Urine Blood Urine Nitrate Urine Bilirubin Urine Urobilinogen Ur Leukocyte Esterase Urine WBC (Auto) Urine RBC (Auto) Ur Squamous Epith Cells Urine Opiates Screen Urine Methadone Screen Ur Barbiturates Screen Ur Phencyclidine Scrn Ur Amphetamines Screen U Benzodiazepines Scrn U Oth Cocaine Metabols U Cannabinoids Screen Alcohol, Quantitative < 10 06/22/18 06/22/18 06/22/18 09:35 10:46 10:46 WBC RBC Hgb Hct MCV MCH MCHC RDW Plt Count MPV Neut % (Auto) Lymph % (Auto) [place] % (Auto) Eos % (Auto) Baso % (Auto) Neut # (Auto) Lymph # (Auto) [place] # (Auto) Eos # (Auto) Baso # (Auto) PT INR APTT Sodium Potassium Chloride Carbon Dioxide Anion Gap BUN Creatinine Est GFR ( Amer) Est GFR (Non-Af Amer) Random Glucose Calcium Magnesium Total Bilirubin AST ALT Alkaline Phosphatase Ammonia 114 H D Troponin I Total Protein Albumin Globulin Albumin/Globulin Ratio Lipase Urine Color Yellow Urine Clarity Clear Urine pH 8.0 Ur Specific [place] 1.012 Urine Protein Negative Urine Glucose (UA) Normal Urine Ketones Negative Urine Blood Negative Urine Nitrate Negative Urine Bilirubin Negative Urine Urobilinogen 4.0 Ur Leukocyte Esterase Neg Urine WBC (Auto) 4 Urine RBC (Auto) 1 Ur Squamous Epith Cells 1 Urine Opiates Screen Negative Urine Methadone Screen Negative Ur Barbiturates Screen Negative Ur Phencyclidine Scrn Negative Ur Amphetamines Screen Negative U Benzodiazepines Scrn Negative U Oth Cocaine Metabols Negative U Cannabinoids Screen Negative Alcohol, Quantitative Assessment & Plan - Assessment and Plan (Free Text) Assessment: Hyperammonemia/Hepatic encephalopathy Ammonia 114 Started on Lactulose 20 gm TID Rifaximin 500 BID Restarted home Midodrine 5mg PO TID Diastolic CHF, chronic f/u BNP CXR (06/22/18): No active disease EKG: pending read Last Echocardiogram (01/02/18): LV mild dilation, EF 55-60%, Grade II relaxation abnormality, LA severely dilated, Mild MR, Mild TR, Mild pulm HTN Restarted home Coreg to 6.25mg PO BID Alcoholic Cirrhosis CT Liver protocol (03/2017): Nodular hepatic contour c/w cirrhosis. Upper abdominal/splenic varices patient has history alcohol abuse AST 70/ALT 23/Alk Phos 193 Ativan 0.5mg PO for seizure activy PRN Monitor for seizures Dementia Restarted home Namenda 10mg PO Daily PVD Restarted home Aspirin 81mg PO daily Prophylactic measures Protonix 40mg PO daily Heparin 5000u sc Q8 ASA 81mg PO QD SCDs
[2018-06-22 16:33] LABS: INR 1.7; PROTHROMBIN TIME 18.1 SECONDS (9.7-12.2)
[2018-06-22 16:40] LABS: HDL CHOLESTEROL 27 mg/dL (30-70)
[2018-06-22 16:51] LABS: LDL CHOLESTEROL 53 mg/dL (0-129)
[2018-06-22 17:25] VITALS: RESP 20
--- NOTE | 2018-06-22 22:04 | CP.PCM.PCO ---
Addendum entered and electronically signed by Jeffry Seth 06/23/18 05:22: House doctor note: Paged for abnormal CMP. Reviewed lab work, order for 2 X Mg sulfate 1g & 1 X Kcl PO 20 meq. Will sign off to day team to re-check w/ AM labs. Original Note:
[2018-06-22] MEDS: Magnesium Sulfate 1 gm in D5W 1 GM/100 ML BAG IVPB SCH (22:23)
[2018-06-22] MEDS ORDERED: Potassium Chloride 20 mEq ER Tab PO ONE (23:00)
[2018-06-23] MEDS: Magnesium Sulfate 1 gm in D5W 1 GM/100 ML BAG IVPB SCH ×3 (00:14→12:54)
[2018-06-23 07:53] LABS: BASO % 0.6 % (0.0-2.0); EOS % 1.1 % (0.0-4.0); LYMPH # 0.6 K/uL (1.0-4.3); LYMPH % 17.3 % (20.0-40.0); MEAN CELL VOLUME 91.6 fL (80.0-94.0); MEAN CORPUSCULAR HEMOGLOBIN 30.3 pg (27.0-31.0); MEAN CORPUSCULAR HGB CONC 33.1 g/dL (33.0-37.0); MEAN PLATELET VOLUME 8.2 fL (7.2-11.7); MONO # 0.8 K/uL (0.0-0.8); MONO % 22.2 % (0.0-10.0); NEUT % 58.8 % (50.0-75.0); PLATELET COUNT 136 K/uL (130-400); RBC 3.58 Mil/uL (4.40-5.90); RED CELL DISTRIBUTION WIDTH 18.1 % (11.5-14.5); WHITE BLOOD COUNT 3.4 K/uL (4.8-10.8)
[2018-06-23 07:59] LABS: HEMOGLOBIN 10.9 g/dL (12.0-18.0)
[2018-06-23 08:39] LABS: ALB/GLOB RATIO 0.5 (1.0-2.1); ALBUMIN 2.6 g/dL (3.5-5.0); ALT/SGPT 31 U/L (21-72); AST/SGOT 49 U/L (17-59); BLOOD UREA NITROGEN 9 mg/dL (9-20); CALCIUM 8.4 mg/dl (8.6-10.4); GFR NON-AFRICAN AMERICAN > 60
[2018-06-23 08:46] LABS: EOSINOPHIL 2 % (0-4); LYMPHOCYTE 17 % (20-40); MONOCYTE 19 % (0-10); NEUTROPHIL 62 % (50-75); PLATELET ESTIMATE NORMAL (NORMAL); TOTAL CELLS COUNTED 100
[2018-06-23 08:47] LABS: ANISOCYTOSIS SLIGHT; HYPOCHROMIC SLIGHT; MICROCYTOSIS SLIGHT; POIKILOCYTOSIS SLIGHT; TEARDROP CELLS SLIGHT
[2018-06-23 08:48] LABS: TARGET CELLS SLIGHT
[2018-06-23] MEDS: Pantoprazole 20 mg EC Tab PO SCH (09:54)
[2018-06-23] MEDS: Potassium Chloride 20 mEq ER Tab PO SCH (10:58)
[2018-06-23 13:42] LABS: BASO % 0.7 % (0.0-2.0); EOS % 1.1 % (0.0-4.0); HEMOGLOBIN 10.9 g/dL (12.0-18.0); LYMPH # 0.6 K/uL (1.0-4.3); LYMPH % 22.4 % (20.0-40.0); MEAN CELL VOLUME 91.8 fL (80.0-94.0); MEAN CORPUSCULAR HEMOGLOBIN 30.6 pg (27.0-31.0); MEAN CORPUSCULAR HGB CONC 33.3 g/dL (33.0-37.0); MEAN PLATELET VOLUME 8.2 fL (7.2-11.7); MONO # 0.6 K/uL (0.0-0.8); MONO % 22.4 % (0.0-10.0); NEUT # 1.5 K/uL (1.8-7.0); NEUT % 53.4 % (50.0-75.0); NRBC % 0.1 % (0.0-2.0); PLATELET COUNT 128 K/uL (130-400); RBC 3.57 Mil/uL (4.40-5.90); WHITE BLOOD COUNT 2.7 K/uL (4.8-10.8)
[2018-06-23 13:51] LABS: ALB/GLOB RATIO 0.6 (1.0-2.1); ALBUMIN 2.7 g/dL (3.5-5.0); ALT/SGPT 25 U/L (21-72); AST/SGOT 50 U/L (17-59); BLOOD UREA NITROGEN 8 mg/dL (9-20); CALCIUM 8.3 mg/dl (8.6-10.4); GFR NON-AFRICAN AMERICAN > 60
--- NOTE | 2018-06-23 14:27 | CP.PCM.PN ---
Subjective - Date & Time of Evaluation Date of Evaluation: 06/23/18 Time of Evaluation: 09:45 - Subjective Subjective: PGY-1 Medicine Progress Note for Dr. Grant Patient was seen and examined today at bedside in no acute distress. Nurse reports no overnight events. Patient complains that dizziness and headache persist, although improved from admission. He's complaining that his breathing is still not fully improved and feels as though he has nasal congestion. He was able to have 2 BM overnight. Still complains of decreased appetite. Denies chest pain, abdominal pain, nausea, vomiting, constipation, numbness, tingling. Objective - Vital Signs/Intake and Output Vital Signs (last 24 hours): Temp Pulse Resp BP Pulse Ox 98.5 F 75 20 117/68 97 06/23/18 08:35 06/23/18 12:36 06/23/18 08:35 06/23/18 08:35 06/23/18 08:35 Intake and Output: 06/23/18 06/23/18 06:59 18:59 Intake Total 580 Output Total 900 Balance -320 - Medications Medications: Current Medications Aspirin (Aspirin Chewable) 81 mg PO DAILY [facility] Last Admin: 06/23/18 09:54 Dose: 81 mg Carvedilol (Coreg) 6.25 mg PO BID [facility] Last Admin: 06/23/18 09:54 Dose: 6.25 mg Heparin Sodium (Porcine) (Heparin) 5,000 units SC Q8 [facility] Last Admin: 06/23/18 13:50 Dose: 5,000 units Magnesium Sulfate/Dextrose (Magnesium Sulfate 1 Gm/100 Ml D5w) 1 gm in 100 mls @ 200 mls/hr IVPB ONCE ONE Stop: 06/23/18 14:40 Potassium Chloride (Potassium Chloride 20 Meq/100 Ml) 20 meq in 100 mls @ 50 mls/hr IVPB Q3H [facility] Stop: 06/23/18 19:14 Lactulose (Enulose) 20 gm PO TID [facility] Last Admin: 06/23/18 13:50 Dose: 20 gm Lorazepam (Ativan) 0.5 mg PO Q8 PRN PRN Reason: Seizure activity Magnesium Oxide (Mag-Ox) 800 mg PO BID [facility] Memantine (Namenda) 10 mg PO DAILY [facility] Last Admin: 06/23/18 09:54 Dose: 10 mg Midodrine (Proamatine) 2.5 mg PO TID [facility] Last Admin: 06/23/18 13:50 Dose: 2.5 mg Pantoprazole Sodium (Protonix Ec Tab) 20 mg PO DAILY [facility] Last Admin: 06/23/18 09:54 Dose: 20 mg Potassium Chloride (K-Dur 20 Meq Er Tab) 20 meq PO DAILY [facility] Last Admin: 06/23/18 10:58 Dose: 20 meq Potassium Chloride (Klor-Con 10) 40 meq PO ONCE ONE Stop: 06/24/18 14:13 Rifaximin (Xifaxan) 550 mg PO BID [facility]; Protocol Last Admin: 06/23/18 09:56 Dose: 550 mg - Labs Labs: 06/23/18 13:32 06/23/18 13:32 PT 18.1 SECONDS (9.7-12.2) H 06/22/18 16:20 INR 1.7 06/22/18 16:20 APTT 35 SECONDS (21-34) H 06/22/18 16:20 - Constitutional Appears: Non-toxic, No Acute Distress - Head Exam Head Exam: ATRAUMATIC, NORMOCEPHALIC - Eye Exam Eye Exam: EOMI, PERRL - ENT Exam ENT Exam: Mucous Membranes Moist - Respiratory Exam Respiratory Exam: Clear to Ausculation Bilateral, NORMAL BREATHING PATTERN. absent: Rales, Rhonchi, Wheezes - Cardiovascular Exam Cardiovascular Exam: REGULAR RHYTHM, +S1, +S2. absent: Gallop, Rubs, Murmur - GI/Abdominal Exam GI & Abdominal Exam: Soft, Normal Bowel Sounds. absent: Distended, Guarding, Tenderness Additional comments: obese - Extremities Exam Extremities Exam: Normal Capillary Refill. absent: Pedal Edema Additional comments: IV access on L arm peripheral pulses not palpable on LE, radial pulses palpable PVD skin changes bilaterally - Neurological Exam Neurological Exam: Alert, Awake, Oriented x3. absent: Normal Gait - Psychiatric Exam Psychiatric exam: Normal Affect, Normal Mood - Skin Skin Exam: Intact, Normal Color, Warm Assessment and Plan - Assessment and Plan (Free Text) Assessment: Mr. Loya is a morbidly obese 47yo male PMH hepatic encephalopathy, EtOH cirrhosis, HTN, HLD, Hx of TIA presents with alcohol induced hepatic encephalopathy exacerbation. Plan: Metabolic Encephalopathy exacerbation 2/2 Alcoholic Cirrhosis s/p Alcohol Intake CT Liver protocol (03/2017): Nodular hepatic contour c/w cirrhosis. Upper abdominal/splenic varices - likely alcohol induced, with hyperammonemia features - Ammonia 114 on admission. ammonia down trending. 105 today - AST/ALT 70/23 on admission - stable - Alk Phos 193 on admission. down trending. 136 today - cont to trend with AM labs - H&H 13.2/38.8 on admission. 10.9/32.8 today. This is more in line with baseline from previous admissions. - PT 18.1, INR 1.7, PTT 35 on admission. Albumin 2.7. These are all his baseline. - Lactulose 20gm po tid (goal is 2-3 BM/day) - Rifaximin 500mg po bid - Ativan 0.5mg po q8 prn for seizures - Vit K 10mg PO daily x3 (last dose 06/26) - home Midodrine 2.5mg po tid - [facility] protocol - seizure precautions - fall precautions Electrolyte Imbalance - K and Mg were repleted overnight, AM labs still showed low labs - likely 2/2 osmotic diarrhea from lactulose administration - repleted this AM, repeat BMP this PM, still low - will replete Mg until goal 2.0 - Potassium Cl 20meq po daily - goal K 4.0 Diastolic CHF, chronic - stable CXR (06/22): No active disease EKG (06/22): SR@66/min, NAD, no acute ST-T Changes Last ECHO (01/02/18): LV mild dilation, EF 55-60%, Grade II relaxation abnormality, LA severely dilated, Mild MR, Mild TR, Mild pulm HTN Lipid Panel (06/22): TG 33, Chol 105, LDL 53, HDL 27 - ASA 81mg po daily - home Coreg 6.25mg PO BID Dementia - home Namenda 10mg PO Daily PVD - home Aspirin 81mg PO daily PPx - DVT: Heparin 5000u sc q8, SCDs CI d/t CHF - GI: Protonix 40mg po daily - Diet: HHD d/w Dr. Grant. All medical management per Dr. Grant. Hazel Spear PGY-1
[2018-06-23] MEDS ORDERED: Magnesium Sulfate 1 gm in D5W 1 GM/100 ML BAG IVPB ONE ×2 (15:00→17:30)
[2018-06-23 15:27] LABS: BANDS 1 % (0-2); EOSINOPHIL 1 % (0-4); MONOCYTE 20 % (0-10); TOTAL CELLS COUNTED 100
[2018-06-23 15:28] LABS: ANISOCYTOSIS SLIGHT; HYPOCHROMIC SLIGHT; LYMPHOCYTE 25 % (20-40); NEUTROPHIL 53 % (50-75); PLATELET ESTIMATE SLIGHTLY DECREASED (NORMAL); POIKILOCYTOSIS SLIGHT
[2018-06-23] MEDS: Magnesium Oxide 400 mg Tab UD PO SCH (19:06)
--- NOTE | 2018-06-24 08:42 | CP.PCM.PN ---
Subjective - Date & Time of Evaluation Date of Evaluation: 06/24/18 Time of Evaluation: 08:42 Objective - Vital Signs/Intake and Output Vital Signs (last 24 hours): Temp Pulse Resp BP Pulse Ox 98.3 F 71 20 108/64 96 06/24/18 07:00 06/24/18 08:18 06/24/18 07:00 06/24/18 07:00 06/24/18 08:18 Intake and Output: 06/24/18 06/24/18 06:59 18:59 Output Total 850 Balance -850 - Medications Medications: Current Medications Aspirin (Aspirin Chewable) 81 mg PO DAILY [facility] Last Admin: 06/23/18 09:54 Dose: 81 mg Carvedilol (Coreg) 6.25 mg PO BID [facility] Last Admin: 06/23/18 19:05 Dose: 6.25 mg Heparin Sodium (Porcine) (Heparin) 5,000 units SC Q8 [facility] Last Admin: 06/24/18 05:06 Dose: 5,000 units Lactulose (Enulose) 20 gm PO TID [facility] Last Admin: 06/23/18 19:05 Dose: 20 gm Lorazepam (Ativan) 0.5 mg PO Q8 PRN PRN Reason: Seizure activity Magnesium Oxide (Mag-Ox) 800 mg PO BID [facility] Last Admin: 06/23/18 19:06 Dose: 800 mg Memantine (Namenda) 10 mg PO DAILY [facility] Last Admin: 06/23/18 09:54 Dose: 10 mg Midodrine (Proamatine) 2.5 mg PO TID [facility] Last Admin: 06/23/18 19:06 Dose: 2.5 mg Pantoprazole Sodium (Protonix Ec Tab) 20 mg PO DAILY [facility] Last Admin: 06/23/18 09:54 Dose: 20 mg Phytonadione (Vitamin K Tab) 10 mg PO DAILY [facility] Stop: 06/26/18 10:01 Potassium Chloride (K-Dur 20 Meq Er Tab) 20 meq PO DAILY [facility] Last Admin: 06/23/18 10:58 Dose: 20 meq Potassium Chloride (K-Dur 20 Meq Er Tab) 40 meq PO ONCE ONE Stop: 06/24/18 14:13 Rifaximin (Xifaxan) 550 mg PO BID [facility]; Protocol Last Admin: 06/23/18 19:06 Dose: 550 mg - Labs Labs: 06/23/18 13:32 06/23/18 13:32 PT 18.1 SECONDS (9.7-12.2) H 06/22/18 16:20 INR 1.7 06/22/18 16:20 APTT 35 SECONDS (21-34) H 06/22/18 16:20
[2018-06-24 08:48] LABS: BASO % 0.3 % (0.0-2.0); EOS % 1.6 % (0.0-4.0); HEMOGLOBIN 10.7 g/dL (12.0-18.0); LYMPH # 0.8 K/uL (1.0-4.3); LYMPH % 28.2 % (20.0-40.0); MEAN CELL VOLUME 91.8 fL (80.0-94.0); MEAN CORPUSCULAR HGB CONC 33.8 g/dL (33.0-37.0); MEAN PLATELET VOLUME 8.1 fL (7.2-11.7); MONO # 0.9 K/uL (0.0-0.8); MONO % 30.2 % (0.0-10.0); NEUT # 1.1 K/uL (1.8-7.0); NEUT % 39.7 % (50.0-75.0); NRBC % 0.1 % (0.0-2.0); PLATELET COUNT 119 K/uL (130-400); RBC 3.44 Mil/uL (4.40-5.90); RED CELL DISTRIBUTION WIDTH 17.8 % (11.5-14.5); WHITE BLOOD COUNT 2.8 K/uL (4.8-10.8)
[2018-06-24] MEDS: Pantoprazole 20 mg EC Tab PO SCH (10:15)
[2018-06-24] MEDS: Magnesium Oxide 400 mg Tab UD PO SCH ×2 (10:15→19:09)
[2018-06-24] MEDS: Potassium Chloride 20 mEq ER Tab PO SCH (10:17)
[2018-06-24 10:22] LABS: ALB/GLOB RATIO 0.5 (1.0-2.1); ALBUMIN 2.5 g/dL (3.5-5.0); ALT/SGPT 26 U/L (21-72); AST/SGOT 53 U/L (17-59); BLOOD UREA NITROGEN 9 mg/dL (9-20); CALCIUM 8.4 mg/dl (8.6-10.4); GFR NON-AFRICAN AMERICAN > 60
[2018-06-24 11:26] LABS: BANDS 2 % (0-2); BASOPHIL 1 % (0-2); LYMPHOCYTE 22 % (20-40); MONOCYTE 26 % (0-10); NEUTROPHIL 49 % (50-75); PLATELET ESTIMATE SLIGHTLY DECREASED (NORMAL); TOTAL CELLS COUNTED 100
[2018-06-24 11:27] LABS: ANISOCYTOSIS SLIGHT
[2018-06-24] MEDS ORDERED: Potassium Chloride 20 mEq ER Tab PO ONE (14:12)
[2018-06-24 16:49] VITALS: PULSE 75
[2018-06-24] MEDS ORDERED: Magnesium Citrate Oral SOL (300 ml) PO ONE (17:16)
--- NOTE | 2018-06-24 17:24 | CP.PCM.DIS ---
Provider - Provider Date of Admission: 06/22/18 11:02 Attending physician: Candelario Grant Jr, MD Time Spent in preparation of Discharge (in minutes): 45 Hospital Course - Lab Results Lab Results: Micro Results 06/22/18 10:46 Urine Urine Culture - Preliminary Enterococcus Raffinosus Most Recent Lab Values WBC 2.8 K/uL (4.8-10.8) L 06/24/18 08:27 RBC 3.44 Mil/uL (4.40-5.90) L 06/24/18 08:27 Hgb 10.7 g/dL (12.0-18.0) L 06/24/18 08:27 Hct 31.6 % (35.0-51.0) L 06/24/18 08: MCV 91.8 fL (80.0-94.0) 06/24/18 08: MCH 31.0 pg (27.0-31.0) 06/24/18 08: MCHC 33.8 g/dL (33.0-37.0) 06/24/18 08:27 RDW 17.8 % (11.5-14.5) H 06/24/18 08:27 Plt Count 119 K/uL (130-400) L 06/24/18 08:27 MPV 8.1 fL (7.2-11.7) 06/24/18 08:27 Neut % (Auto) 39.7 % (50.0-75.0) L 06/24/18 08:27 Lymph % (Auto) 28.2 % (20.0-40.0) 06/24/18 08:27 Emanuel % (Auto) 30.2 % (0.0-10.0) H 06/24/18 08:27 Eos % (Auto) 1.6 % (0.0-4.0) 06/24/18 08:27 Baso % (Auto) 0.3 % (0.0-2.0) 06/24/18 08:27 Neut # (Auto) 1.1 K/uL (1.8-7.0) L 06/24/18 08:27 Lymph # (Auto) 0.8 K/uL (1.0-4.3) L 06/24/18 08:27 Emanuel # (Auto) 0.9 K/uL (0.0-0.8) H 06/24/18 08:27 Eos # (Auto) 0.0 K/uL (0.0-0.7) 06/24/18 08:27 Baso # (Auto) 0.0 K/uL (0.0-0.2) 06/24/18 08:27 Neutrophils % (Manual) 49 % (50-75) L 06/24/18 08:27 Band Neutrophils % 2 % (0-2) 06/24/18 08:27 Lymphocytes % (Manual) 22 % (20-40) 06/24/18 08:27 Monocytes % (Manual) 26 % (0-10) H 06/24/18 08:27 Eosinophils % (Manual) 1 % (0-4) 06/23/18 13:32 Basophils % (Manual) 1 % (0-2) 06/24/18 08:27 Platelet Estimate Slightly decreased (NORMAL) L 06/24/18 08:27 Hypochromasia (manual) Slight 06/23/18 13:32 Poikilocytosis (manual Slight 06/23/18 13:32 Anisocytosis (manual) Slight 06/24/18 08:27 Microcytosis (manual) Slight 06/23/18 07:40 Target Cells Slight 06/23/18 07:40 Tear Drop Cells Slight 06/23/18 07:40 PT 18.1 SECONDS (9.7-12.2) H 06/22/18 16:20 INR 1.7 06/22/18 16:20 APTT 35 SECONDS (21-34) H 06/22/18 16:20 Sodium 136 mmol/L (132-148) 06/24/18 10:05 Potassium 3.5 mmol/L (3.6-5.2) L 06/24/18 10:05 Chloride 102 mmol/L (98-107) 06/24/18 10:05 Carbon Dioxide 26 mmol/L (22-30) 06/24/18 10:05 Anion Gap 11 (10-20) 06/24/18 10:05 BUN 9 mg/dL (9-20) 06/24/18 10:05 Creatinine 0.6 mg/dL (0.8-1.5) L 06/24/18 10:05 Est GFR ( Amer) > 60 06/24/18 10:05 Est GFR (Non-Af Amer) > 60 06/24/18 10:05 Random Glucose 77 mg/dL (75-110) 06/24/18 10:05 Calcium 8.4 mg/dl (8.6-10.4) L 06/24/18 10:05 Phosphorus 3.4 mg/dL (2.5-4.5) 06/24/18 08:27 Magnesium 1.4 mg/dL (1.6-2.3) L 06/24/18 08:27 Total Bilirubin 1.3 mg/dL (0.2-1.3) 06/24/18 10:05 AST 53 U/L (17-59) 06/24/18 10:05 ALT 26 U/L (21-72) 06/24/18 10:05 Alkaline Phosphatase 120 U/L (38-126) 06/24/18 10:05 Ammonia 141 umol/L (9-33) H D 06/24/18 08:27 Troponin I 0.0270 ng/mL (0.00-0.120) 06/22/18 09:35 Total Protein 7.3 g/dL (6.3-8.3) 06/24/18 10:05 Albumin 2.5 g/dL (3.5-5.0) L 06/24/18 10:05 Globulin 4.8 gm/dL (2.2-3.9) H 06/24/18 10:05 Albumin/Globulin Ratio 0.5 (1.0-2.1) L 06/24/18 10:05 Triglycerides 33 mg/dL (0-149) 06/22/18 16:20 Cholesterol 105 mg/dL (0-199) 06/22/18 16:20 LDL Cholesterol Direct 53 mg/dL (0-129) 06/22/18 16:20 HDL Cholesterol 27 mg/dL (30-70) L 06/22/18 16:20 Lipase 177 U/L (23-300) 06/22/18 09:35 Urine Color Yellow (YELLOW) 06/22/18 10:46 Urine Clarity Clear (Clear) 06/22/18 10:46 Urine pH 8.0 (5.0-8.0) 06/22/18 10:46 Ur Specific [place] 1.012 (1.003-1.030) 06/22/18 10:46 Urine Protein Negative mg/dL (NEGATIVE) 06/22/18 10:46 Urine Glucose (UA) Normal mg/dL (Normal) 06/22/18 10:46 Urine Ketones Negative mg/dL (NEGATIVE) 06/22/18 10:46 Urine Blood Negative (NEGATIVE) 06/22/18 10:46 Urine Nitrate Negative (NEGATIVE) 06/22/18 10:46 Urine Bilirubin Negative (NEGATIVE) 06/22/18 10:46 Urine Urobilinogen 4.0 mg/dL (0.2-1.0) 06/22/18 10:46 Ur Leukocyte Esterase Neg Taylor/uL (Negative) 06/22/18 10:46 Urine WBC (Auto) 4 /hpf (0-5) 06/22/18 10:46 Urine RBC (Auto) 1 /hpf (0-3) 06/22/18 10:46 Ur Squamous Epith Cells 1 /hpf (0-5) 06/22/18 10:46 Urine Opiates Screen Negative (NEGATIVE) 06/22/18 10:46 Urine Methadone Screen Negative (NEGATIVE) 06/22/18 10:46 Ur Barbiturates Screen Negative (NEGATIVE) 06/22/18 10:46 Ur Phencyclidine Scrn Negative (NEGATIVE) 06/22/18 10:46 Ur Amphetamines Screen Negative (NEGATIVE) 06/22/18 10:46 U Benzodiazepines Scrn Negative (NEGATIVE) 06/22/18 10:46 U Oth Cocaine Metabols Negative (NEGATIVE) 06/22/18 10:46 U Cannabinoids Screen Negative (NEGATIVE) 06/22/18 10:46 Alcohol, Quantitative < 10 mg/dl (0-10) 06/22/18 09:35 Blood Type A POSITIVE 06/23/18 15:09 Antibody Screen Negative 06/23/18 15:09 - Hospital Course Hospital Course: cc: I'm weak and cant remember things, help me HPI: 47yo M PMHx of, Hepatic encephalopathy, ETOH cirrhosis, HTN, Hyperlipidemia, Morbid obesity, hx of TIA present with a one week history of feeling weak and confused. He feels tired and is unable to walk more than 3 block without getting fatigued and SOB. He states he has been compliant with his medications since his last discharge in from [facility]. Pt also complains of abdominal distention, itchiness and a dry cough lasting for 1 week as well. He has been having blurry vision for the past year. Pt last alcohol consumption was 1 week ago. Pt denies CP, SOB at rest, fc, nv, weight changes, dysuria. Of note Pt was recently admitted for similar symptoms and presentation in February, was seen by GI Dr Diamond recommending d/c home on Lasix and Aldactone and outpt EGD and Colonoscopy. ROS: Pos+ confusion, SOB with activity, itchiness, cough, blurry vision, abd distention, ETOH use 1 week ago NEG- CP, SOB at rest, Fever, chills, nausea, vomiting, weight change, diarrhea, blood in stools, epigastric pain, heartburn, night sweats, Hospital course: Patient was admitted on 06/22/18 for hepatic encephalopathy. Patient's altered mental status likely secondary to hyperammonemia. Patient was started on lactulose 20g PO TID. Patient has a hx of alcohol abuse. CIWA protocol was ordered. Patient was started on ativan prn. Patient had hypokalemia and hypomagnesemia. Both magnesium and potassium were given and were normalized. Patient was seen and examined on 06/24/18. Patient was alert and oriented x3 and no signs/symptoms of withdrawal. Patient is stable for discharge to home per Dr. Grant with a prescription for Lactulose 20ml PO daily for 30 days. Patient must continue home medications. Patient must follow up with PMD within one week of discharge. This is a brief summary of the hospital course. Please see EMR for more details. Discharge Exam - Head Exam Head Exam: ATRAUMATIC, NORMOCEPHALIC - Eye Exam Eye Exam: EOMI, Normal appearance - ENT Exam ENT Exam: Mucous Membranes Moist - Respiratory Exam Respiratory Exam: Clear to PA & Lateral, NORMAL BREATHING PATTERN, UNREMARKABLE. absent: Rhonchi, Wheezes, Respiratory Distress - Cardiovascular Exam Cardiovascular Exam: REGULAR RHYTHM, +S1, +S2 - GI/Abdominal Exam GI & Abdominal Exam: Normal Bowel Sounds, Soft. absent: Distended, Firm, Guarding Additional comments: Obese - Extremities Exam Extremities exam: normal inspection, pedal pulses present - Neurological Exam Neurological exam: Alert, Oriented x3 - Psychiatric Exam Psychiatric exam: Normal Affect, Normal Mood - Skin Skin Exam: Dry, Intact, Normal Color, Warm Discharge Plan - Discharge Medications Prescriptions: Lactulose [Enulose] 20 gm PO DAILY #30 udc - Follow Up Plan Condition: STABLE Disposition: HOME/ ROUTINE Instructions: Lactulose, Heart Failure (DC), Heart Failure (GEN), Pacemaker (DC), Pacemaker (GEN), Pulmonary Edema (DC), Pulmonary Edema (GEN), Ascites (DC), Ascites (GEN) Additional Instructions: Patient is stable for discharge to home per Dr. Grant. Patient must continue all home medications. Patient must continue Lactulose 30ml PO daily. [Prescription send electronically to patient's preferred pharmacy] Patient must follow up with PMD within 1 week of discharge. If symptoms worsen or reoccur, patient should return to nearest hospital. Samoan translation: El paciente se encuentra estable para el adry a domicilio segn el Dr. Grant. El paciente debe continuar con todos los medicamentos caseros. El paciente debe continuar con Lactulose 30ml PO diariamente. [La receta se enva electrnicamente a la farmacia preferida del paciente] El paciente debe realizar un seguimiento con PMD dentro de la primera semana despus del adry. Si los sntomas empeoran o reaparecen, el paciente debe regresar al hospital [facility].
[2018-06-24 17:39] VITALS: BP 107/61; TEMP 99.4; O2SAT 98
--- NOTE | 2018-06-26 17:57 | CARD ---
APPROVED REPORT Date of service: 06/22/2018 EKG Measurement Heart [id number] <Conclusion> Normal sinus rhythm Nonspecific T wave abnormality Abnormal ECG
== END 2018-06-24 20:15 | disposition home or self-care (01) ==
LOC: C.ER 08:43 → C.9E 11:02 → C.6T 15:57
PROVIDERS: ADMIT Internal Medicine; ATTEND Internal Medicine
DX: I11.0 Hypertensive heart disease with heart failure (principal); F31.9 Bipolar disorder, unspecified; I48.91 Unspecified atrial fibrillation; I50.32 Chronic diastolic (congestive) heart failure; I27.20 Pulmonary hypertension, unspecified; E87.6 Hypokalemia; E83.42 Hypomagnesemia; E78.5 Hyperlipidemia, unspecified; E66.01 Morbid (severe) obesity due to excess calories; Z68.42 Body mass index [BMI] 45.0-49.9, adult; K70.30 Alcoholic cirrhosis of liver without ascites; F03.90 Unspecified dementia, unspecified severity, without behavioral disturbance, psychotic disturbance, mood disturbance, and anxiety; R56.9 Unspecified convulsions; Z87.891 Personal history of nicotine dependence
CPT/HCPCS: 36415; 71045; 80053; 80061; 81001; 82140; 83690; 83735; 84100; 84484; 85025; 85610; 85730; 86850; 86900; 87086; 87206; 93005; 96361; 96365; 96366; 96372; 96375; 99285; C9113; G0378; G0480; J1644; J2405; J3475; J3480; J7030

== ENCOUNTER 2018-07-24 00:31 | Inpatient (IN) | payer MEDICARE, OTHER ==
[2018-07-24 00:32] VITALS: BMI 40.6
[2018-07-24 01:17] LABS: BASO % 1.1 % (0.0-2.0); EOS # 0.2 K/uL (0.0-0.7); EOS % 5.7 % (0.0-4.0); HEMOGLOBIN 12.1 g/dL (12.0-18.0); LYMPH # 1.6 K/uL (1.0-4.3); LYMPH % 46.9 % (20.0-40.0); MEAN CELL VOLUME 90.3 fL (80.0-94.0); MEAN CORPUSCULAR HEMOGLOBIN 30.6 pg (27.0-31.0); MEAN CORPUSCULAR HGB CONC 33.9 g/dL (33.0-37.0); MEAN PLATELET VOLUME 7.8 fL (7.2-11.7); MONO # 0.6 K/uL (0.0-0.8); MONO % 17.3 % (0.0-10.0); NRBC % 0.1 % (0.0-2.0); RBC 3.96 Mil/uL (4.40-5.90); RED CELL DISTRIBUTION WIDTH 16.9 % (11.5-14.5); WHITE BLOOD COUNT 3.5 K/uL (4.8-10.8)
[2018-07-24 01:20] LABS: ABG ALLEN TEST POS; ARTERIAL BLOOD GAS HCO3 25.5 mmol/L (21-28); ARTERIAL BLOOD GAS O2 SAT 96.4 % (95-98); ARTERIAL BLOOD GAS PCO2 34 mm/Hg (35-45); ARTERIAL BLOOD GAS PH 7.46 (7.35-7.45); ARTERIAL BLOOD GAS PO2 69 mm/Hg (80-100); ARTERIAL BLOOD GAS TCO2 25.2 mmol/L (22-28)
[2018-07-24 01:25] LABS: INR 1.6; PROTHROMBIN TIME 17.2 SECONDS (9.7-12.2)
[2018-07-24 01:42] LABS: ALB/GLOB RATIO 0.6 (1.0-2.1); ALBUMIN 3.1 g/dL (3.5-5.0); ALT/SGPT 34 U/L (21-72); AST/SGOT 60 U/L (17-59); BLOOD UREA NITROGEN 14 mg/dL (9-20); CALCIUM 8.5 mg/dl (8.6-10.4); GFR NON-AFRICAN AMERICAN > 60; LIPASE 155 U/L (23-300)
--- NOTE | 2018-07-24 01:44 | C.PDOC ---
History Of Present Illness 47 y/o male with a PMHx of alcoholism, hepatic encephalopathy, and CHF, brought in for increasing forgetfulness. Was seen here about 1 month ago for similar complaint. At present time patient denies any fever, chills, nausea, vomiting, or pain. Patient has no facial droop, slurred speech, or new focal deficit. Time Seen by Provider: 07/24/18 00:57 Chief Complaint (Nursing): Altered Mental Status History Per: Patient History/Exam Limitations: None Onset/Duration Of Symptoms: Days Current Symptoms Are (Timing): Still Present Usual Baseline: Alert Oriented Exacerbating Factor(s): Unknown Use Of Anticoag/Antiplatelets: No Speech Is: Normal Severity: Moderate Pain Scale Rating Of: 5 Recent travel outside of the [place]: No Additional History Per: EMS Associated Symptoms: Confused (occasionally), Trouble Thinking. denies: Fever, Chills, Sweating Past Medical History Reviewed: Historical Data, Nursing Documentation, Vital Signs Vital Signs: Last Vital Signs Temp 97.8 F 07/24/18 00:43 Pulse 97 H 07/24/18 00:43 Resp 20 07/24/18 00:43 BP 110/69 07/24/18 00:43 Pulse Ox 97 07/24/18 00:43 - Medical History PMH: Anxiety, Arthritis, Asthma, Atrial Fibrillation, Bipolar Disorder, CHF, CO PD (ASTHMA), Depression, Gall Bladder Disease, HTN, Schizophrenia Denies: Diabetes, Hepatitis, HIV, Chronic Kidney Disease, Seizures, Sexually Transmitted Disease Other PMH: Hepatic encephalopathy Surgical History: Appendectomy, Cholecystectomy Denies: CABG, Coronary Stent, Pacemaker, Tonsillectomy - [facility] Procedures FLUOROSCOPY OF RIGHT JUGULAR VEINS, GUIDANCE (11/14/15) INSERT INFUSION DEV IN R INT JUGULAR VEIN, PERC (11/14/15) INTRODUCTION OF SERUM/TOX/VACCINE INTO MUSCLE, PERC APPROACH (05/28/17) REMOVAL OF INFUSION DEVICE FROM UPPER VEIN, CASH ACCOUNTANT APPROACH (11/14/15) Family History: States: Unknown Family Hx - Social History Hx Tobacco Use: No Hx Alcohol Use: Yes Hx Substance Use: No - Immunization History Hx Tetanus Toxoid Vaccination: No Hx Influenza Vaccination: No Hx Pneumococcal Vaccination: No Review Of Systems Constitutional: Negative for: Fever, Chills Eyes: Negative for: Vision Change ENT: Negative for: Throat Pain Cardiovascular: Negative for: Chest Pain Respiratory: Negative for: Shortness of Breath Gastrointestinal: Negative for: Nausea, Vomiting Genitourinary: Negative for: Dysuria Musculoskeletal: Negative for: Back Pain Skin: Negative for: Rash Neurological: Positive for: Confusion. Negative for: Weakness, Numbness, Change in Speech, Other (facial droop) Psych: Positive for: Other (Forgetfulness) Physical Exam - Physical Exam Appears: Non-toxic, No Acute Distress Skin: Warm, Dry Head: Normacephalic Eye(s): bilateral: Scleral Icterus (mild) Oral Mucosa: Moist Neck: Trachea Midline, Supple Chest: Other (Bilateral gynecomastia) Cardiovascular: Rhythm Regular Respiratory: No Rales, No Rhonchi, No Wheezing Gastrointestinal/Abdominal: Bowel Sounds (good), Soft, No Tenderness, Distention (+) Back: Normal Inspection Extremity: No Tenderness, Pedal Edema (trace) Extremity: Bilateral: Atraumatic Pulses: Left Dorsalis Pedis: Normal, Right Dorsalis Pedis: Normal Neurological/Psych: Oriented x3 Gait: With Assistance ED Course And Treatment - Laboratory Results Result Diagrams: 07/24/18 01:14 07/24/18 01:14 O2 Sat by Pulse Oximetry: 97 (RA) Pulse Ox Interpretation: Normal - CT Scan/US CT Head Other Rad Studies (CT/US): Read By Radiologist, Radiology Report Reviewed CT/US Interpretation: Name:JERROD KIRK Exam Date:Jul 24, 2018 1:28:52 AM EST. Modality Type:CT. Description:CT - BRAIN. Gender:M Laterality:Not applicable. :68 Referring Physician:Mario Alberto Aguilar). CT scan of the head. CLINICAL HISTORY: Altered mental status. TECHNIQUE: Multiple axial CT images were obtained through the brain without IV contrast material. COMMENTS: There is normal configuration of sella turcica. There are no intra or extra-axial collections. There is no mass effect or midline shift. There is no evidence of hematoma formation. No hydrocephalus is present. The ventricles are symmetrical. No abnormal calcifications are present. There is diffuse age-appropriate cerebellar and cerebral atrophy with proportionally dilated ventricles and cortical sulci. There are bilateral periventricular and subcortical white matter hypolucencies compatible with mild chronic microvascular disease. Otherwise, no significant focal abnormalities are seen either in the posterior fossa or supratentorial compartment. IMPRESSION: 1. Age-appropriate cerebellar and cerebral atrophy. 2. Mild chronic microvascular disease. 3. No evidence of acute intracranial pathology. Progress Note: Routine blood work, cultures, and UA ordered and reviewed. Chest x-ray and EKG reviewed. Pending CT Head. Administered Protonix and Lactulose. Disposition Discussed With Dr.: Kelli Folres Comment: accepted the pt on his service and took over the care at 3:34 AM Doctor Will See Patient In The: Hospital Counseled Patient/Family Regarding: Studies Performed, Diagnosis - Disposition Disposition: HOSPITALIZED Disposition Time: 03:34 Condition: GUARDED Forms: [employer] (Brazilian) - POA Present On Arrival: None - Clinical Impression Clinical Impression: Cirrhosis of liver, Hyperammonemia, Change in mental status - Scribe Statement The provider has reviewed the documentation as recorded by the Shanna Forbes Provider Attestation: All medical record entries made by the Kellyibzan were at my direction and p ersonally dictated by me. I have reviewed the chart and agree that the record accurately reflects my personal performance of the history, physical exam, medical decision making, and the department course for this patient. I have also personally directed, reviewed, and agree with the discharge instructions and disposition. Decision To Admit - Pt Status Changed To: Hospital Disposition Of: Inpatient - Admit Certification Admit to Inpatient:: After my assessment, the patient will require hospi talization for at least two midnights. This is because of the severity of symptoms shown, intensity of services needed, and/or the medical risk in this patient being treated as an outpatient. - InPatient: Physician Admission Certification:: After my assessment, the patient will require hospitalization for at least two midnights. This is because of the severity of symptoms shown, intensity of services needed, and/or the medical risk in this patient being treated as an outpatient. - . Bed Request Type: Regular Admitting Physician: Kelli Flores Patient Diagnosis: Cirrhosis of liver, Hyperammonemia, Change in mental status
--- NOTE | 2018-07-24 08:36 | CT ---
Date of service: 07/24/2018 PROCEDURE: CT HEAD WITHOUT CONTRAST. HISTORY: AMS COMPARISON: Comparison is made with 03/16/2018 TECHNIQUE: Axial computed tomography images were obtained through the head/brain without intravenous contrast. Radiation dose: Total exam DLP = 959.11 mGy-cm. This CT exam was performed using one or more of the following dose reduction techniques: Automated exposure control, adjustment of the mA and/or kV according to patient size, and/or use of iterative reconstruction technique. FINDINGS: HEMORRHAGE: No intracranial hemorrhage. BRAIN: No mass effect or edema. No atrophy or chronic microvascular ischemic changes. VENTRICLES: Unremarkable. No hydrocephalus. CALVARIUM: Unremarkable. PARANASAL SINUSES: Unremarkable as visualized. No significant inflammatory changes. MASTOID AIR CELLS: Unremarkable as visualized. No inflammatory changes. OTHER FINDINGS: None. IMPRESSION: No evidence of acute intracranial hemorrhage mass effect or midline shift. No significant interval change since the previous study. Preliminary report contains concordance findings was submitted by [facility].
[2018-07-24 08:47] LABS: URINE BILIRUBIN NEGATIVE (NEGATIVE); URINE BLOOD NEGATIVE (NEGATIVE); URINE CLARITY Clear (Clear); URINE COLOR Yellow (YELLOW); URINE GLUCOSE (UA) NORMAL (Normal); URINE LEUKOCYTE ESTERASE NEG Leu/uL (Negative); URINE PROTEIN NEGATIVE (NEGATIVE); URINE UROBILINOGEN NORMAL mg/dL (0.2-1.0)
--- NOTE | 2018-07-24 09:00 | CP.PCM.CON ---
<NeelsolomonzaydaCezar - Last Filed: 07/24/18 08:57> History of Present Illness - History of Present Illness History of Present Illness: GI Fellow PGY4, Consult note. Kimberly Loya, 47M, hx of decompensated alcoholic cirrhosis, presenting with change in mental status. Patient states he feels fatigued, somewhat weak and foggy. He is non-specific in his complaints and has no focal neurologic changes. In ED, he was found to have elevated ammonia level. He does not know what medications he is taking at this time as his sister gives him his medications. He has not noticed any major bleeding at this time. He states his last drink of alcohol was over 5 months ago, however, an alcohol level 06/09/18 was 272 (normal less than 10). At this time, he is alert and oriented x4. No complaints of fever, abdominal pain, diarrhea, vomiting, cough. PMHx: See HPI PSHx: Appendectomy FHx: Discussed with patient and denies any significant FHx Social: Etoh abuse as of last month; Denies tobacco or illicit drug use Endo: No prior endoscopic evaluations 12-point ROS conducted, neg other than previously stated above Past Patient History - Infectious Disease Hx of Infectious Diseases: None - Tetanus Immunizations Tetanus Immunization: Unknown - Past Medical History & Family History Past Medical History?: Yes - Past Social History Smoking Status: Current Some Days Smoker - CARDIAC Hx Atrial Fibrillation: Yes Hx Congestive Heart Failure: Yes Hx Hypertension: Yes Hx Pacemaker: No - PULMONARY Hx Asthma: Yes Hx Chronic Obstructive Pulmonary Disease (COPD): Yes (ASTHMA) - NEUROLOGICAL Hx Seizures: No - HEENT Hx HEENT Problems: No - RENAL Hx Chronic Kidney Disease: No - HEMATOLOGICAL/ONCOLOGICAL Hx Human Immunodeficiency Virus (HIV): No - INTEGUMENTARY Hx Dermatological Problems: No - MUSCULOSKELETAL/RHEUMATOLOGICAL Hx Arthritis: Yes - GASTROINTESTINAL Hx Gall Bladder Disease: Yes - GENITOURINARY/GYNECOLOGICAL Hx Sexually Transmitted Disorders: No - PSYCHIATRIC Hx Anxiety: Yes Hx Bipolar Disorder: Yes Hx Depression: Yes Hx Schizophrenia: Yes Hx Substance Use: No - SURGICAL HISTORY Hx Appendectomy: Yes Hx Cholecystectomy: Yes Hx Coronary Artery Bypass Graft: No Hx Coronary Stent: No Hx Tonsillectomy: No - ANESTHESIA Hx Anesthesia: Yes Hx Anesthesia Reactions: No Hx Malignant Hyperthermia: No Meds Allergies/Adverse Reactions: Allergies Allergy/AdvReac Type Severity Reaction Status Date / Time No Known Allergies Allergy Verified 07/24/18 00:48 Physical Exam - Constitutional Appears: Non-toxic, No Acute Distress, Confused - Head Exam Head Exam: NORMAL INSPECTION, NORMOCEPHALIC - Eye Exam Eye Exam: EOMI, Scleral icterus - Respiratory Exam Respiratory Exam: Clear to Auscultation Bilateral, NORMAL BREATHING PATTERN - Cardiovascular Exam Cardiovascular Exam: REGULAR RHYTHM, +S1, +S2 - GI/Abdominal Exam GI & Abdominal Exam: Normal Bowel Sounds, Soft. absent: Organomegaly, Tenderness - Extremities Exam Extremities exam: Positive for: pedal edema. Negative for: normal inspection, tenderness Additional comments: chronic venous stasis - Neurological Exam Neurological exam: Alert, CN II-XII Intact, Oriented x3 Additional comments: Mild asterixis - Psychiatric Exam Psychiatric exam: Normal Affect, Normal Mood - Skin Skin Exam: Dry, Normal Color Results - Vital Signs Recent Vital Signs: Last Vital Signs Temp 98.7 F 07/24/18 07:47 Pulse 75 07/24/18 07:47 Resp 19 07/24/18 07:47 BP 124/73 07/24/18 07:47 Pulse Ox 97 07/24/18 07:47 - Labs Result Diagrams: 07/24/18 01:14 07/24/18 01:14 Labs: Laboratory Results - last 24 hr 07/24/18 07/24/18 07/24/18 00:47 01:14 01:14 WBC 3.5 L RBC 3.96 L Hgb 12.1 Hct 35.8 MCV 90.3 MCH 30.6 MCHC 33.9 RDW 16.9 H Plt Count 131 MPV 7.8 Neut % (Auto) 29.0 L Lymph % (Auto) 46.[address] [place] % (Auto) 17.3 H Eos % (Auto) 5.7 H Baso % (Auto) 1.1 Neut # (Auto) 1.0 L Lymph # (Auto) 1.6 [place] # (Auto) 0.6 Eos # (Auto) 0.2 Baso # (Auto) 0.0 PT 17.2 H INR 1.6 APTT 35 H Puncture Site pCO2 pO2 HCO3 ABG pH ABG Total CO2 ABG O2 Saturation ABG Base Excess Eric Test ABG Potassium A-a O2 Difference Respiratory Index Glucose Lactate FiO2 Crit Value Called To Crit Value Called By Crit Value Read Back Blood Gas Notified Time Sodium Potassium Chloride Carbon Dioxide Anion Gap BUN Creatinine Est GFR ( Amer) Est GFR (Non-Af Amer) POC Glucose (mg/dL) 79 Random Glucose Calcium Total Bilirubin AST ALT Alkaline Phosphatase Ammonia Total Protein Albumin Globulin Albumin/Globulin Ratio Lipase Arterial Blood Potassium Urine Color Urine Clarity Urine pH Ur Specific [place] Urine Protein Urine Glucose (UA) Urine Ketones Urine Blood Urine Nitrate Urine Bilirubin Urine Urobilinogen Ur Leukocyte Esterase Urine WBC (Auto) Alcohol, Quantitative Blood Type Antibody Screen 07/24/18 07/24/18 07/24/18 01:14 01:15 01:20 WBC RBC Hgb Hct MCV MCH MCHC RDW Plt Count MPV Neut % (Auto) Lymph % (Auto) [place] % (Auto) Eos % (Auto) Baso % (Auto) Neut # (Auto) Lymph # (Auto) [place] # (Auto) Eos # (Auto) Baso # (Auto) PT INR APTT Puncture Site Rr pCO2 34 L pO2 69 L HCO3 25.5 ABG pH 7.46 H ABG Total CO2 25.2 ABG O2 Saturation 96.4 ABG Base Excess 0.8 Eric Test Pos ABG Potassium 2.5 L* A-a O2 Difference 38.0 Respiratory Index 0.6 Glucose 102 Lactate 1.2 FiO2 21.0 Crit Value Called To Karmen rn Crit Value Called By Johnnie lithographers printer Crit Value Read Back Y Blood Gas Notified Time 119 Sodium 135 135.0 Potassium 3.1 L Chloride 99 104.0 Carbon Dioxide 25 Anion Gap 14 BUN 14 Creatinine 0.7 L Est GFR ( Amer) > 60 Est GFR (Non-Af Amer) > 60 POC Glucose (mg/dL) Random Glucose 99 Calcium 8.5 L Total Bilirubin 1.5 H AST 60 H ALT 34 Alkaline Phosphatase 162 H D Ammonia 101 H D Total Protein 8.0 Albumin 3.1 L D Globulin 4.9 H Albumin/Globulin Ratio 0.6 L Lipase 155 Arterial Blood Potassium 2.5 L* Urine Color Urine Clarity Urine pH Ur Specific [place] Urine Protein Urine Glucose (UA) Urine Ketones Urine Blood Urine Nitrate Urine Bilirubin Urine Urobilinogen Ur Leukocyte Esterase Urine WBC (Auto) Alcohol, Quantitative < 10 Blood Type Antibody Screen 07/24/18 07/24/18 01:42 08:38 WBC RBC Hgb Hct MCV MCH MCHC RDW Plt Count MPV Neut % (Auto) Lymph % (Auto) [place] % (Auto) Eos % (Auto) Baso % (Auto) Neut # (Auto) Lymph # (Auto) [place] # (Auto) Eos # (Auto) Baso # (Auto) PT INR APTT Puncture Site pCO2 pO2 HCO3 ABG pH ABG Total CO2 ABG O2 Saturation ABG Base Excess Eric Test ABG Potassium A-a O2 Difference Respiratory Index Glucose Lactate FiO2 Crit Value Called To Crit Value Called By Crit Value Read Back Blood Gas Notified Time Sodium Potassium Chloride Carbon Dioxide Anion Gap BUN Creatinine Est GFR ( Amer) Est GFR (Non-Af Amer) POC Glucose (mg/dL) Random Glucose Calcium Total Bilirubin AST ALT Alkaline Phosphatase Ammonia Total Protein Albumin Globulin Albumin/Globulin Ratio Lipase Arterial Blood Potassium Urine Color Yellow Urine Clarity Clear Urine pH 7.0 Ur Specific [place] 1.015 Urine Protein Negative Urine Glucose (UA) Normal Urine Ketones Negative Urine Blood Negative Urine Nitrate Negative Urine Bilirubin Negative Urine Urobilinogen Normal Ur Leukocyte Esterase Neg Urine WBC (Auto) < 1 Alcohol, Quantitative Blood Type A POSITIVE Antibody Screen Negative Assessment & Plan - Assessment and Plan (Free Text) Assessment: #Mild hepatic encephalopathy - Grade I #Decompensated alcoholic cirrhosis #Medication non-adherence #Obesity #Alcohol abuse #HTN PLAN: -Labs and previous imaging reviewed. No liver lesions 02/2018 on U/S. -MELD 15. -Patient non-forthcoming about drinking habits. -Patient does not know which medications he is taking or supposed to be taking -Continue lactulose. Goal 2-3 BMs per day. Titrate as needed -Continue xifaxin -Patient can be discharged from GI perspective on appropriate medications. -Recommend EGD/colonoscopy as outpt. - Date & Time Date: 07/24/18 Time: 08:59 <Ashish Kerr - Last Filed: 07/24/18 09:44> Meds - Medications Medications: Current Medications Lactulose (Enulose) 20 gm PO HS NABIL Rifaximin (Xifaxan) 550 mg PO BID NABIL; Protocol Results - Vital Signs Recent Vital Signs: Last Vital Signs Temp 98.7 F 07/24/18 07:47 Pulse 75 07/24/18 07:47 Resp 19 07/24/18 07:47 BP 124/73 11/26/18 07:47 Pulse Ox 97 07/24/18 07:47 - Labs Result Diagrams: 07/24/18 01:14 07/24/18 01:14 Labs: Laboratory Results - last 24 hr 07/24/18 07/24/18 07/24/18 00:47 01:14 01:14 WBC 3.5 L RBC 3.96 L Hgb 12.1 Hct 35.8 MCV 90.3 MCH 30.6 MCHC 33.9 RDW 16.9 H Plt Count 131 MPV 7.8 Neut % (Auto) 29.0 L Lymph % (Auto) 46.[address] [place] % (Auto) 17.3 H Eos % (Auto) 5.7 H Baso % (Auto) 1.1 Neut # (Auto) 1.0 L Lymph # (Auto) 1.6 [place] # (Auto) 0.6 Eos # (Auto) 0.2 Baso # (Auto) 0.0 PT 17.2 H INR 1.6 APTT 35 H Puncture Site pCO2 pO2 HCO3 ABG pH ABG Total CO2 ABG O2 Saturation ABG Base Excess Eric Test ABG Potassium A-a O2 Difference Respiratory Index Glucose Lactate FiO2 Crit Value Called To Crit Value Called By Crit Value Read Back Blood Gas Notified Time Sodium Potassium Chloride Carbon Dioxide Anion Gap BUN Creatinine Est GFR ( Amer) Est GFR (Non-Af Amer) POC Glucose (mg/dL) 79 Random Glucose Calcium Total Bilirubin AST ALT Alkaline Phosphatase Ammonia Total Protein Albumin Globulin Albumin/Globulin Ratio Lipase Arterial Blood Potassium Urine Color Urine Clarity Urine pH Ur Specific [place] Urine Protein Urine Glucose (UA) Urine Ketones Urine Blood Urine Nitrate Urine Bilirubin Urine Urobilinogen Ur Leukocyte Esterase Urine WBC (Auto) Alcohol, Quantitative Blood Type Antibody Screen 07/24/18 07/24/18 07/24/18 01:14 01:15 01:20 WBC RBC Hgb Hct MCV MCH MCHC RDW Plt Count MPV Neut % (Auto) Lymph % (Auto) [place] % (Auto) Eos % (Auto) Baso % (Auto) Neut # (Auto) Lymph # (Auto) [place] # (Auto) Eos # (Auto) Baso # (Auto) PT INR APTT Puncture Site Rr pCO2 34 L pO2 69 L HCO3 25.5 ABG pH 7.46 H ABG Total CO2 25.2 ABG O2 Saturation 96.4 ABG Base Excess 0.8 Eric Test Pos ABG Potassium 2.5 L* A-a O2 Difference 38.0 Respiratory Index 0.6 Glucose 102 Lactate 1.2 FiO2 21.0 Crit Value Called To Karmen rn Crit Value Called By Johnnie lithographers printer Crit Value Read Back Y Blood Gas Notified Time 119 Sodium 135 135.0 Potassium 3.1 L Chloride 99 104.0 Carbon Dioxide 25 Anion Gap 14 BUN 14 Creatinine 0.7 L Est GFR ( Amer) > 60 Est GFR (Non-Af Amer) > 60 POC Glucose (mg/dL) Random Glucose 99 Calcium 8.5 L Total Bilirubin 1.5 H AST 60 H ALT 34 Alkaline Phosphatase 162 H D Ammonia 101 H D Total Protein 8.0 Albumin 3.1 L D Globulin 4.9 H Albumin/Globulin Ratio 0.6 L Lipase 155 Arterial Blood Potassium 2.5 L* Urine Color Urine Clarity Urine pH Ur Specific [place] Urine Protein Urine Glucose (UA) Urine Ketones Urine Blood Urine Nitrate Urine Bilirubin Urine Urobilinogen Ur Leukocyte Esterase Urine WBC (Auto) Alcohol, Quantitative < 10 Blood Type Antibody Screen 07/24/18 07/24/18 01:42 08:38 WBC RBC Hgb Hct MCV MCH MCHC RDW Plt Count MPV Neut % (Auto) Lymph % (Auto) [place] % (Auto) Eos % (Auto) Baso % (Auto) Neut # (Auto) Lymph # (Auto) [place] # (Auto) Eos # (Auto) Baso # (Auto) PT INR APTT Puncture Site pCO2 pO2 HCO3 ABG pH ABG Total CO2 ABG O2 Saturation ABG Base Excess Eric Test ABG Potassium A-a O2 Difference Respiratory Index Glucose Lactate FiO2 Crit Value Called To Crit Value Called By Crit Value Read Back Blood Gas Notified Time Sodium Potassium Chloride Carbon Dioxide Anion Gap BUN Creatinine Est GFR ( Amer) Est GFR (Non-Af Amer) POC Glucose (mg/dL) Random Glucose Calcium Total Bilirubin AST ALT Alkaline Phosphatase Ammonia Total Protein Albumin Globulin Albumin/Globulin Ratio Lipase Arterial Blood Potassium Urine Color Yellow Urine Clarity Clear Urine pH 7.0 Ur Specific [place] 1.015 Urine Protein Negative Urine Glucose (UA) Normal Urine Ketones Negative Urine Blood Negative Urine Nitrate Negative Urine Bilirubin Negative Urine Urobilinogen Normal Ur Leukocyte Esterase Neg Urine WBC (Auto) < 1 Alcohol, Quantitative Blood Type A POSITIVE Antibody Screen Negative Attending/Attestation - Attestation I have personally seen and examined this patient.: Yes I have fully participated in the care of the patient.: Yes I have reviewed all pertinent clinical information: Yes Notes (Text): 07/24/18 09:40 I have seen and examined patient with GI fellow. Agree with above documentation with the following additions. In brief, this is a 47 year old male with history of decompensated ETOH cirrhosis, obesity (BMI 45), who presents to hospital with complaint of change in mental status. He claims to be compliant with outpatient lactulose therapy and otherwise denies abdominal pain, nausea, vomiting, fever/chills, weight loss, melena. He denies recent ETOH consumption, claims to be sober for past 5 months, though hospital tox screen suggests otherwise. No prior endoscopic evaluation. Review of vitals from today are normal. Decompensated ETOH cirrhosis, admission MELD 15 Obesity Altered mental status, hepatic encephalopathy - Low sodium diet as tolerated - Will continue with lactulose therapy, titrate so patient has 3-4 bowel movements daily. Add xifaxan therapy for HE prevention. - No further planned GI interventions at this time, will sign off case. Patient would benefit from additional outpatient follow up, please reconsult as necessary, thank you.
--- NOTE | 2018-07-24 09:10 | RAD ---
Date of service: 07/24/2018 HISTORY: AMS COMPARISON: Comparison chest 06/22/2018. FINDINGS: LUNGS: Suspect minor bibasilar atelectasis PLEURA: Cardiomegaly. No significant pleural effusion identified, no pneumothorax apparent. CARDIOVASCULAR: No aortic atherosclerotic calcification present. Cardiomegaly. No pulmonary vascular congestion. OSSEOUS STRUCTURES: No significant abnormalities. VISUALIZED UPPER ABDOMEN: Normal. OTHER FINDINGS: None. IMPRESSION: Suspect minor bibasilar atelectasis
[2018-07-24] MEDS ORDERED: Albuterol HFA 90 mcg/actuation (8 g) IH PRN (16:20)
[2018-07-24] MEDS ORDERED: Fluticasone Nasal 50 mcg/Spray NS PRN (16:20)
[2018-07-24] MEDS ORDERED: Folic Acid 1 MG, Thiamine 100 MG, Multivitamin (MVI) 10 ML in Dextrose 5% In Water 1,00... IV SCH (16:30)
[2018-07-24 17:58] VITALS: RESP 20
[2018-07-24] MEDS: Potassium Chloride 20 mEq ER Tab PO SCH (18:04)
[2018-07-24] MEDS: Cilostazol 100 mg Tab UD PO SCH (21:34)
--- NOTE | 2018-07-24 23:48 | CP.PCM.HP ---
Past Patient History - Infectious Disease Hx of Infectious Diseases: None - Tetanus Immunizations Tetanus Immunization: Unknown - Past Medical History & Family History Past Medical History?: Yes - Past Social History Smoking Status: Light Smoker < 10 Cigarettes Daily - CARDIAC Hx Cardiac Disorders: Yes Hx Atrial Fibrillation: Yes Hx Congestive Heart Failure: Yes Hx Hypertension: Yes Hx Pacemaker: No - PULMONARY Hx Respiratory Disorders: Yes Hx Asthma: Yes Hx Chronic Obstructive Pulmonary Disease (COPD): Yes (ASTHMA) - NEUROLOGICAL Hx Neurological Disorder: Yes Hx Seizures: No Other/Comment: encephalopathy - HEENT Hx HEENT Problems: No - RENAL Hx Chronic Kidney Disease: No - ENDOCRINE/METABOLIC Hx Endocrine Disorders: No - HEMATOLOGICAL/ONCOLOGICAL Hx Blood Disorders: No Hx Human Immunodeficiency Virus (HIV): No - INTEGUMENTARY Hx Dermatological Problems: No - MUSCULOSKELETAL/RHEUMATOLOGICAL Hx Falls: No - GASTROINTESTINAL Hx Gastrointestinal Disorders: Yes Hx Gall Bladder Disease: Yes - GENITOURINARY/GYNECOLOGICAL Hx Genitourinary Disorders: No Hx Sexually Transmitted Disorders: No - PSYCHIATRIC Hx Psychophysiologic Disorder: Yes Hx Anxiety: Yes Hx Bipolar Disorder: Yes Hx Depression: Yes Hx Schizophrenia: Yes Hx Substance Use: No - SURGICAL HISTORY Hx Surgeries: Yes Hx Appendectomy: Yes Hx Cholecystectomy: Yes Hx Coronary Artery Bypass Graft: No Hx Coronary Stent: No Hx Tonsillectomy: No - ANESTHESIA Hx Anesthesia: Yes Hx Anesthesia Reactions: No Hx Malignant Hyperthermia: No Has any member of the family had a problem w/ anesthesia?: No Meds Allergies/Adverse Reactions: Allergies Allergy/AdvReac Type Severity Reaction Status Date / Time No Known Allergies Allergy Verified 07/24/18 00:48 Physical Exam - Constitutional Appears: Well - Head Exam Head Exam: ATRAUMATIC, NORMAL INSPECTION, NORMOCEPHALIC - Eye Exam Eye Exam: EOMI, Normal appearance, PERRL Pupil Exam: NORMAL ACCOMODATION, PERRL - ENT Exam ENT Exam: Mucous Membranes Moist, Normal Exam - Neck Exam Neck exam: Positive for: Normal Inspection - Respiratory Exam Respiratory Exam: Decreased Breath Sounds - Cardiovascular Exam Cardiovascular Exam: REGULAR RHYTHM, +S1, +S2 - GI/Abdominal Exam GI & Abdominal Exam: Diminished Bowel Sounds, Soft - Rectal Exam Rectal Exam: Deferred Results - Vital Signs Recent Vital Signs: Last Vital Signs Temp 97.9 F 07/24/18 23:30 Pulse 69 07/24/18 23:30 Resp 20 07/24/18 23:30 BP 100/61 11/26/18 23:30 Pulse Ox 95 07/24/18 23:30 - Labs Result Diagrams: 07/24/18 01:14 07/24/18 01:14 Labs: Laboratory Results - last 24 hr 07/24/18 07/24/18 07/24/18 00:47 01:14 01:14 WBC 3.5 L RBC 3.96 L Hgb 12.1 Hct 35.8 MCV 90.3 MCH 30.6 MCHC 33.9 RDW 16.9 H Plt Count 131 MPV 7.8 Neut % (Auto) 29.0 L Lymph % (Auto) 46.9 H [place] % (Auto) 17.3 H Eos % (Auto) 5.7 H Baso % (Auto) 1.1 Neut # (Auto) 1.0 L Lymph # (Auto) 1.6 [place] # (Auto) 0.6 Eos # (Auto) 0.2 Baso # (Auto) 0.0 PT 17.2 H INR 1.6 APTT 35 H Puncture Site pCO2 pO2 HCO3 ABG pH ABG Total CO2 ABG O2 Saturation ABG Base Excess Eric Test ABG Potassium A-a O2 Difference Respiratory Index Glucose Lactate FiO2 Crit Value Called To Crit Value Called By Crit Value Read Back Blood Gas Notified Time Sodium Potassium Chloride Carbon Dioxide Anion Gap BUN Creatinine Est GFR ( Amer) Est GFR (Non-Af Amer) POC Glucose (mg/dL) 79 Random Glucose Calcium Total Bilirubin AST ALT Alkaline Phosphatase Ammonia Total Protein Albumin Globulin Albumin/Globulin Ratio Lipase Arterial Blood Potassium Urine Color Urine Clarity Urine pH Ur Specific [place] Urine Protein Urine Glucose (UA) Urine Ketones Urine Blood Urine Nitrate Urine Bilirubin Urine Urobilinogen Ur Leukocyte Esterase Urine WBC (Auto) Alcohol, Quantitative Blood Type Antibody Screen 07/24/18 07/24/18 07/24/18 01:14 01:15 01:20 WBC RBC Hgb Hct MCV MCH MCHC RDW Plt Count MPV Neut % (Auto) Lymph % (Auto) [place] % (Auto) Eos % (Auto) Baso % (Auto) Neut # (Auto) Lymph # (Auto) [place] # (Auto) Eos # (Auto) Baso # (Auto) PT INR APTT Puncture Site Rr pCO2 34 L pO2 69 L HCO3 25.5 ABG pH 7.46 H ABG Total CO2 25.2 ABG O2 Saturation 96.4 ABG Base Excess 0.8 Eric Test Pos ABG Potassium 2.5 L* A-a O2 Difference 38.0 Respiratory Index 0.6 Glucose 102 Lactate 1.2 FiO2 21.0 Crit Value Called To Karmen rn Crit Value Called By Johnnie ex assistant/program director Crit Value Read Back Y Blood Gas Notified Time 119 Sodium 135 135.0 Potassium 3.1 L Chloride 99 104.0 Carbon Dioxide 25 Anion Gap 14 BUN 14 Creatinine 0.7 L Est GFR ( Amer) > 60 Est GFR (Non-Af Amer) > 60 POC Glucose (mg/dL) Random Glucose 99 Calcium 8.5 L Total Bilirubin 1.5 H AST 60 H ALT 34 Alkaline Phosphatase 162 H D Ammonia 101 H D Total Protein 8.0 Albumin 3.1 L D Globulin 4.9 H Albumin/Globulin Ratio 0.6 L Lipase 155 Arterial Blood Potassium 2.5 L* Urine Color Urine Clarity Urine pH Ur Specific [place] Urine Protein Urine Glucose (UA) Urine Ketones Urine Blood Urine Nitrate Urine Bilirubin Urine Urobilinogen Ur Leukocyte Esterase Urine WBC (Auto) Alcohol, Quantitative < 10 Blood Type Antibody Screen 07/24/18 07/24/18 07/24/18 01:42 08:38 11:21 WBC RBC Hgb Hct MCV MCH MCHC RDW Plt Count MPV Neut % (Auto) Lymph % (Auto) [place] % (Auto) Eos % (Auto) Baso % (Auto) Neut # (Auto) Lymph # (Auto) [place] # (Auto) Eos # (Auto) Baso # (Auto) PT INR APTT Puncture Site pCO2 pO2 HCO3 ABG pH ABG Total CO2 ABG O2 Saturation ABG Base Excess Eric Test ABG Potassium A-a O2 Difference Respiratory Index Glucose Lactate FiO2 Crit Value Called To Crit Value Called By Crit Value Read Back Blood Gas Notified Time Sodium Potassium Chloride Carbon Dioxide Anion Gap BUN Creatinine Est GFR ( Amer) Est GFR (Non-Af Amer) POC Glucose (mg/dL) 113 H Random Glucose Calcium Total Bilirubin AST ALT Alkaline Phosphatase Ammonia Total Protein Albumin Globulin Albumin/Globulin Ratio Lipase Arterial Blood Potassium Urine Color Yellow Urine Clarity Clear Urine pH 7.0 Ur Specific [place] 1.015 Urine Protein Negative Urine Glucose (UA) Normal Urine Ketones Negative Urine Blood Negative Urine Nitrate Negative Urine Bilirubin Negative Urine Urobilinogen Normal Ur Leukocyte Esterase Neg Urine WBC (Auto) < 1 Alcohol, Quantitative Blood Type A POSITIVE Antibody Screen Negative
--- NOTE | 2018-07-25 07:13 | CP.PCM.CON ---
History of Present Illness - History of Present Illness History of Present Illness: HEPATIC ENCEPHALOPATHY ASTERIXIS AND NEUROPATHY OBESITY NEW DM CORRECT AMMONIA CHECK MRI BRAIN EEG WEIGHT CONTROL NEEDS PSG AN OP Past Patient History - Infectious Disease Hx of Infectious Diseases: None - Tetanus Immunizations Tetanus Immunization: Unknown - Past Medical History & Family History Past Medical History?: Yes - Past Social History Smoking Status: Light Smoker < 10 Cigarettes Daily - CARDIAC Hx Cardiac Disorders: Yes Hx Atrial Fibrillation: Yes Hx Congestive Heart Failure: Yes Hx Hypertension: Yes Hx Pacemaker: No - PULMONARY Hx Respiratory Disorders: Yes Hx Asthma: Yes Hx Chronic Obstructive Pulmonary Disease (COPD): Yes (ASTHMA) - NEUROLOGICAL Hx Neurological Disorder: Yes Hx Seizures: No Other/Comment: encephalopathy - HEENT Hx HEENT Problems: No - RENAL Hx Chronic Kidney Disease: No - ENDOCRINE/METABOLIC Hx Endocrine Disorders: No - HEMATOLOGICAL/ONCOLOGICAL Hx Blood Disorders: No Hx Human Immunodeficiency Virus (HIV): No - INTEGUMENTARY Hx Dermatological Problems: No - MUSCULOSKELETAL/RHEUMATOLOGICAL Hx Falls: No - GASTROINTESTINAL Hx Gastrointestinal Disorders: Yes Hx Gall Bladder Disease: Yes - GENITOURINARY/GYNECOLOGICAL Hx Genitourinary Disorders: No Hx Sexually Transmitted Disorders: No - PSYCHIATRIC Hx Psychophysiologic Disorder: Yes Hx Anxiety: Yes Hx Bipolar Disorder: Yes Hx Depression: Yes Hx Schizophrenia: Yes Hx Substance Use: No - SURGICAL HISTORY Hx Surgeries: Yes Hx Appendectomy: Yes Hx Cholecystectomy: Yes Hx Coronary Artery Bypass Graft: No Hx Coronary Stent: No Hx Tonsillectomy: No - ANESTHESIA Hx Anesthesia: Yes Hx Anesthesia Reactions: No Hx Malignant Hyperthermia: No Has any member of the family had a problem w/ anesthesia?: No Meds Allergies/Adverse Reactions: Allergies Allergy/AdvReac Type Severity Reaction Status Date / Time No Known Allergies Allergy Verified 07/24/18 00:48 - Medications Medications: Current Medications Albuterol (Ventolin Hfa 90 Mcg/Actuation (8 G)) 2 puff IH RQ6 PRN PRN Reason: Shortness of Breath Aspirin (Aspirin Chewable) 81 mg PO DAILY [facility] Last Admin: 07/24/18 18:04 Dose: 81 mg Aspirin (Ecotrin) 81 mg PO DAILY [facility] Last Admin: 07/24/18 18:05 Dose: Not Given Carvedilol (Coreg) 6.25 mg PO BID [facility] Last Admin: 07/24/18 18:05 Dose: 6.25 mg Cilostazol (Pletal) 100 mg PO Q12 [facility] Last Admin: 07/24/18 21:34 Dose: 100 mg Enoxaparin Sodium (Lovenox) 40 mg SC DAILY [facility] Famotidine (Pepcid) 40 mg PO DAILY [facility] Fluticasone Propionate (Flonase) 2 spr NS DAILY PRN PRN Reason: Nasal congestion Folic Acid (Folic Acid) 1 mg PO DAILY [facility] Last Admin: 07/24/18 21:34 Dose: 1 mg Furosemide (Lasix) 20 mg PO BID [facility] Last Admin: 07/24/18 18:07 Dose: 20 mg Gabapentin (Neurontin) 400 mg PO TID [facility] Last Admin: 07/24/18 21:34 Dose: 400 mg Folic Acid 1 mg/ Thiamine HCl 100 mg/ Multivitamins/Vitamin C 10 ml/ Dextrose 1,011.2 mls @ 50 mls/hr IV .[id number] [facility] Stop: 07/25/18 12:43 Last Admin: 07/24/18 18:27 Dose: 50 mls/hr Influenza Virus Vaccine (Fluzone Quad [id number]) 60 mcg IM .ONCE ONE Stop: 07/26/18 10:01 Lactulose (Enulose) 20 gm PO HS [facility] Last Admin: 07/24/18 21:38 Dose: 20 gm Lactulose (Enulose) 20 gm PO DAILY [facility] Last Admin: 07/24/18 18:06 Dose: 20 gm Memantine (Namenda) 10 mg PO DAILY [facility] Last Admin: 07/24/18 18:04 Dose: 10 mg Potassium Chloride (K-Dur 20 Meq Er Tab) 20 meq PO DAILY [facility] Last Admin: 07/24/18 18:04 Dose: 20 meq Rifaximin (Xifaxan) 550 mg PO Q12 [facility]; Protocol Last Admin: 07/24/18 21:34 Dose: 550 mg Thiamine HCl (Vitamin B1 Tab) 100 mg PO DAILY [facility] Last Admin: 07/24/18 18:04 Dose: 100 mg Results - Vital Signs Recent Vital Signs: Last Vital Signs Temp 97.9 F 07/24/18 23:30 Pulse 69 07/24/18 23:30 Resp 20 07/24/18 23:30 BP 100/61 07/24/18 23:30 Pulse Ox 95 07/24/18 23:30 - Labs Result Diagrams: 07/24/18 01:14 07/24/18 01:14 Labs: Laboratory Results - last 24 hr 07/24/18 07/24/18 08:38 11:21 POC Glucose (mg/dL) 113 H Urine Color Yellow Urine Clarity Clear Urine pH 7.0 Ur Specific [place] 1.015 Urine Protein Negative Urine Glucose (UA) Normal Urine Ketones Negative Urine Blood Negative Urine Nitrate Negative Urine Bilirubin Negative Urine Urobilinogen Normal Ur Leukocyte Esterase Neg Urine WBC (Auto) < 1
[2018-07-25 10:07] LABS: ALB/GLOB RATIO 0.6 (1.0-2.1); ALBUMIN 2.7 g/dL (3.5-5.0); ALT/SGPT 31 U/L (21-72); AST/SGOT 59 U/L (17-59); BLOOD UREA NITROGEN 11 mg/dL (9-20); CALCIUM 8.4 mg/dl (8.6-10.4); GFR NON-AFRICAN AMERICAN > 60
[2018-07-25] MEDS: Enoxaparin 40 mg Syringe SC SCH (10:14)
[2018-07-25] MEDS: Potassium Chloride 20 mEq ER Tab PO SCH (10:14)
[2018-07-25] MEDS: Cilostazol 100 mg Tab UD PO SCH ×2 (11:38→21:34)
--- NOTE | 2018-07-25 12:48 | CP.PCM.PN ---
Subjective - Date & Time of Evaluation Date of Evaluation: 07/25/18 Time of Evaluation: 08:00 - Subjective Subjective: clinically same Objective - Vital Signs/Intake and Output Vital Signs (last 24 hours): Temp Pulse Resp BP Pulse Ox 97.6 F 69 20 108/60 98 07/25/18 07:00 07/25/18 07:00 07/25/18 07:00 07/25/18 10:14 07/25/18 07:00 Intake and Output: 07/25/18 07/25/18 06:59 18:59 Intake Total 1200 Output Total 400 Balance 800 - Medications Medications: Current Medications Albuterol (Ventolin Hfa 90 Mcg/Actuation (8 G)) 2 puff IH RQ6 PRN PRN Reason: Shortness of Breath Aspirin (Aspirin Chewable) 81 mg PO DAILY [facility] Last Admin: 07/25/18 10:14 Dose: 81 mg Aspirin (Ecotrin) 81 mg PO DAILY [facility] Last Admin: 07/25/18 10:14 Dose: 81 mg Carvedilol (Coreg) 6.25 mg PO BID [facility] Last Admin: 07/25/18 10:14 Dose: 6.25 mg Cilostazol (Pletal) 100 mg PO Q12 [facility] Last Admin: 07/25/18 11:38 Dose: 100 mg Enoxaparin Sodium (Lovenox) 40 mg SC DAILY [facility] Last Admin: 07/25/18 10:14 Dose: 40 mg Famotidine (Pepcid) 40 mg PO DAILY [facility] Last Admin: 07/25/18 11:38 Dose: 40 mg Fluticasone Propionate (Flonase) 2 spr NS DAILY PRN PRN Reason: Nasal congestion Folic Acid (Folic Acid) 1 mg PO DAILY [facility] Last Admin: 07/25/18 10:14 Dose: 1 mg Furosemide (Lasix) 20 mg PO BID [facility] Last Admin: 07/25/18 10:14 Dose: 20 mg Gabapentin (Neurontin) 400 mg PO TID [facility] Last Admin: 07/25/18 11:37 Dose: 400 mg Influenza Virus Vaccine (Fluzone Quad [id number]) 60 mcg IM .ONCE ONE Stop: 07/26/18 10:01 Lactulose (Enulose) 20 gm PO HS [facility] Last Admin: 07/24/18 21:38 Dose: 20 gm Lactulose (Enulose) 20 gm PO DAILY [facility] Last Admin: 07/25/18 10:15 Dose: 20 gm Memantine (Namenda) 10 mg PO DAILY [facility] Last Admin: 07/25/18 10:14 Dose: 10 mg Potassium Chloride (K-Dur 20 Meq Er Tab) 20 meq PO DAILY [facility] Last Admin: 07/25/18 10:14 Dose: 20 meq Rifaximin (Xifaxan) 550 mg PO Q12 [facility]; Protocol Last Admin: 07/25/18 11:37 Dose: 550 mg Thiamine HCl (Vitamin B1 Tab) 100 mg PO DAILY [facility] Last Admin: 07/25/18 10:14 Dose: 100 mg - Labs Labs: 07/24/18 01:14 07/25/18 08:00 PT 17.2 SECONDS (9.7-12.2) H 07/24/18 01:14 INR 1.6 07/24/18 01:14 APTT 35 SECONDS (21-34) H 07/24/18 01:14 - Constitutional Appears: Well - Head Exam Head Exam: ATRAUMATIC, NORMAL INSPECTION, NORMOCEPHALIC - Eye Exam Eye Exam: EOMI, Normal appearance, PERRL Pupil Exam: NORMAL ACCOMODATION, PERRL - ENT Exam ENT Exam: Mucous Membranes Moist, Normal Exam - Neck Exam Neck Exam: Full ROM, Normal Inspection. absent: Lymphadenopathy - Respiratory Exam Respiratory Exam: Decreased Breath Sounds - Cardiovascular Exam Cardiovascular Exam: REGULAR RHYTHM, +S1, +S2 - GI/Abdominal Exam GI & Abdominal Exam: Soft, Diminished Bowel Sounds - Rectal Exam Rectal Exam: Deferred
--- NOTE | 2018-07-25 14:45 | MRI ---
Date of service: 07/25/2018 PROCEDURE: MRI BRAIN WITHOUT CONTRAST HISTORY: Alchoholic - dementia COMPARISON: None available. TECHNIQUE: Multiplanar, multisequence MR images of the brain were obtained without intravenous contrast enhancement. FINDINGS: Suboptimal study due to patient's motion. HEMORRHAGE: None DWI: No evidence of an acute or early subacute infarction. BRAIN PARENCHYMA: The FLAIR images are limited. Again noted symmetrical hyperintense T1 signal in the inferior aspect of the basal ganglia and hypothalamus bilaterally which has not significantly changed since the previous exam. Mild atrophy and mild chronic microvascular white matter ischemic changes are again noted. VENTRICLES: Unremarkable. No hydrocephalus. CRANIUM: Unremarkable. ORBITS: Grossly unremarkable. PARANASAL SINUSES/MASTOIDS: Clear VASCULAR SYSTEM: Skull base flow voids intact. OTHER FINDINGS: None. IMPRESSION: Suboptimal study degraded by patient's motion. No significant interval changes noted since the previous study.
--- NOTE | 2018-07-25 17:18 | CARD ---
APPROVED REPORT Date of service: 07/24/2018 EKG Measurement Heart [id number] <Conclusion> Sinus rhythm with premature atrial complexes Nonspecific T wave abnormality Prolonged QT Abnormal ECG
--- NOTE | 2018-07-25 19:50 | CON ---
DATE: 07/25/2018 ATTENDING PHYSICIAN: Micheal Flores MD LOCATION: Room #365, bed 1. REASON FOR CONSULTATION: Imbalance and change in mental status. CHIEF COMPLAINT: The patient was admitted with history of losing balance, fall. From neurological point of view, I was called in to evaluate him for further management. HISTORY OF PRESENT ILLNESS: The patient is a morbidly obese right-handed male brought into [facility] with a history of change in mental status, forgetfulness, and losing balance. No history of involuntary movement per documentation. No history of bowel or bladder incontinence. No history of head trauma. No similar episodes happened in the past. The patient had a strong history of alcohol abuse for many years, been off from alcohol intake for the last 5 months as per his history. He claims no alcohol-related neurological problem in the past. PAST MEDICAL HISTORY: Anxiety, arthritis, asthma, atrial fibrillation, bipolar disorder, CHF, COPD, depression, gallbladder disease, hypertension, and schizophrenia. PERSONAL HISTORY: Denies smoking. Alcohol, quit 5 months ago. REVIEW OF SYSTEMS: Twelve-point system being reviewed from neuro, change in mental status and losing balance. MEDICATIONS: Aspirin, Coreg, Ecotrin, ____, Flonase, folic acid, multivitamin, IV fluids, Lasix, Namenda, Pepcid. PHYSICAL EXAMINATION: VITAL SIGNS: Blood pressure 100/61, mean artery pressure of 74, respiratory rate 18, temperature afebrile. NECK: Supple. No carotid bruits. HEART: Heart sounds regular. CHEST: Fair air entry. EXTREMITIES: 3+ pitting edema, right leg is externally rotated. NEUROLOGIC: The patient is communicable only in [place]. He follows two-step command. No right and left confusion. Speech is fluent. No confabulation and no visual or auditory hallucination. No sign of depression. Cranial nerve examination: Visual field intact. Pupils reactive to light. Extraocular movement normal. No nystagmus. No facial sensory deficit. No facial asymmetry. Hearing is normal. Tongue is midline. Good gag. Motor examination: Outstretched hand with eyes closed, no drift noted. Significant asterixis and sensory tremor noted on outstretched hand with eyes closed. He could be able to lift both lower extremities against gravity, somewhat limited on his right side to compare with his left side. Deep tendon reflexes, absent in upper extremities, 3+ in both knees. Both ankles are absent. Plantars are upgoing on his right side, left side was equivocal response. Sensory examination: Significant sensory motor neuropathy distally noted. Coordination: Mild dysmetria on finger-nose testing. CONCLUSION: 1. The patient as per neurological examination presenting with significant peripheral neuropathy, probably related to his alcohol abuse, manifesting as toxic neuropathy, which may be superimposed with the newly diagnosed diabetes mellitus. 2. The patient also with possible ammonia-related encephalopathy secondary to his cirrhosis of the liver. However, the mentation is normal for his age at present. WORKUP: WBC 3.5, hemoglobin 12.1, hematocrit 35.8, platelets 131. PT 17.2, INR 1.6, PTT 35. Sodium 135, potassium 3.1, chloride 99, bicarbonate 14, creatinine 0.7, GFR more than 60, glucose 113, alkaline phosphatase 162, ammonia 101, protein 8, globulin 4.9. Urinalysis is normal. Alcohol level less than 10. RECOMMENDATIONS: 1. Hydration with multivitamin. 2. Agree with lactulose to bring down the ammonia level. 3. EEG. 4. MRI of the brain for his memory impairment, particularly looking at the memory glands. 5. The patient is also scheduled to have electroencephalogram to rule out any triphasic waves related to his encephalopathy. The patient will be followed closely with you. Dante Clifton MD
[2018-07-25] MEDS ORDERED: Potassium Chloride 10 mEq ER Tab PO STA (20:31)
[2018-07-26] MEDS: Cilostazol 100 mg Tab UD PO SCH ×2 (09:19→21:09)
[2018-07-26] MEDS: Potassium Chloride 20 mEq ER Tab PO SCH (09:19)
[2018-07-26] MEDS: Enoxaparin 40 mg Syringe SC SCH (09:20)
[2018-07-26] MEDS ORDERED: Influenza Vaccine 60 MCG/0.5 ML SYR (3 yr & up) IM ONE (10:00)
[2018-07-26 14:06] LABS: BLOOD UREA NITROGEN 13 mg/dL (9-20); GFR NON-AFRICAN AMERICAN > 60
[2018-07-26] MEDS: Magnesium Sulfate 1 gm in D5W 1 GM/100 ML BAG IVPB SCH ×2 (14:41→14:48)
[2018-07-26] MEDS ORDERED: Potassium Chloride 20 mEq ER Tab PO ONE (16:00)
--- NOTE | 2018-07-26 17:58 | CP.PCM.PN ---
Subjective - Date & Time of Evaluation Date of Evaluation: 07/26/18 Time of Evaluation: 07:30 - Subjective Subjective: clinically same Objective - Vital Signs/Intake and Output Vital Signs (last 24 hours): Temp Pulse Resp BP Pulse Ox 97.8 F 64 20 132/80 99 07/26/18 15:00 07/26/18 15:00 07/26/18 15:00 07/26/18 17:11 07/26/18 15:00 Intake and Output: 07/26/18 07/26/18 06:59 18:59 Intake Total 450 240 Output Total 500 Balance -50 240 - Medications Medications: Current Medications Albuterol (Ventolin Hfa 90 Mcg/Actuation (8 G)) 2 puff IH RQ6 PRN PRN Reason: Shortness of Breath Aspirin (Aspirin Chewable) 81 mg PO DAILY [facility] Last Admin: 07/26/18 09:19 Dose: 81 mg Aspirin (Ecotrin) 81 mg PO DAILY [facility] Last Admin: 07/26/18 09:19 Dose: 81 mg Carvedilol (Coreg) 6.25 mg PO BID [facility] Last Admin: 07/26/18 17:11 Dose: 6.25 mg Cilostazol (Pletal) 100 mg PO Q12 [facility] Last Admin: 07/26/18 09:19 Dose: 100 mg Enoxaparin Sodium (Lovenox) 40 mg SC DAILY [facility] Last Admin: 07/26/18 09:20 Dose: 40 mg Famotidine (Pepcid) 40 mg PO DAILY [facility] Last Admin: 07/26/18 09:19 Dose: 40 mg Fluticasone Propionate (Flonase) 2 spr NS DAILY PRN PRN Reason: Nasal congestion Folic Acid (Folic Acid) 1 mg PO DAILY [facility] Last Admin: 07/26/18 09:19 Dose: 1 mg Furosemide (Lasix) 20 mg PO BID [facility] Last Admin: 07/26/18 17:11 Dose: 20 mg Gabapentin (Neurontin) 400 mg PO TID [facility] Last Admin: 07/26/18 17:11 Dose: 400 mg Lactulose (Enulose) 20 gm PO TID [facility] Last Admin: 07/26/18 17:11 Dose: 20 gm Memantine (Namenda) 10 mg PO DAILY [facility] Last Admin: 07/26/18 09:19 Dose: 10 mg Potassium Chloride (K-Dur 20 Meq Er Tab) 20 meq PO DAILY [facility] Last Admin: 07/26/18 09:19 Dose: 20 meq Rifaximin (Xifaxan) 550 mg PO Q12 [facility]; Protocol Last Admin: 07/26/18 09:18 Dose: 550 mg Thiamine HCl (Vitamin B1 Tab) 100 mg PO DAILY [facility] Last Admin: 07/26/18 09:19 Dose: 100 mg - Labs Labs: 07/24/18 01:14 07/26/18 13:47 PT 17.2 SECONDS (9.7-12.2) H 07/24/18 01:14 INR 1.6 07/24/18 01:14 APTT 35 SECONDS (21-34) H 07/24/18 01:14 - Constitutional Appears: Well - Head Exam Head Exam: ATRAUMATIC, NORMAL INSPECTION, NORMOCEPHALIC - Eye Exam Eye Exam: EOMI, Normal appearance, PERRL Pupil Exam: NORMAL ACCOMODATION, PERRL - ENT Exam ENT Exam: Mucous Membranes Moist, Normal Exam - Neck Exam Neck Exam: Full ROM, Normal Inspection. absent: Lymphadenopathy - Respiratory Exam Respiratory Exam: Decreased Breath Sounds - Cardiovascular Exam Cardiovascular Exam: REGULAR RHYTHM, +S1, +S2 - GI/Abdominal Exam GI & Abdominal Exam: Soft, Diminished Bowel Sounds - Rectal Exam Rectal Exam: Deferred
[2018-07-27] MEDS ORDERED: Potassium Chloride 20 mEq ER Tab PO SCH (08:00)
[2018-07-27 08:05] LABS: BASO % 0.5 % (0.0-2.0); EOS # 0.1 K/uL (0.0-0.7); HEMOGLOBIN 11.3 g/dL (12.0-18.0); LYMPH # 1.1 K/uL (1.0-4.3); LYMPH % 34.8 % (20.0-40.0); MEAN CELL VOLUME 90.5 fL (80.0-94.0); MEAN CORPUSCULAR HEMOGLOBIN 30.6 pg (27.0-31.0); MEAN CORPUSCULAR HGB CONC 33.9 g/dL (33.0-37.0); MEAN PLATELET VOLUME 8.8 fL (7.2-11.7); MONO # 0.5 K/uL (0.0-0.8); MONO % 16.5 % (0.0-10.0); NEUT # 1.5 K/uL (1.8-7.0); NEUT % 44.2 % (50.0-75.0); NRBC % 0.2 % (0.0-2.0); RBC 3.68 Mil/uL (4.40-5.90); RED CELL DISTRIBUTION WIDTH 16.5 % (11.5-14.5); WHITE BLOOD COUNT 3.3 K/uL (4.8-10.8)
[2018-07-27 08:28] LABS: ALB/GLOB RATIO 0.6 (1.0-2.1); ALBUMIN 2.6 g/dL (3.5-5.0); ALT/SGPT 34 U/L (21-72); AST/SGOT 59 U/L (17-59); BLOOD UREA NITROGEN 14 mg/dL (9-20); CALCIUM 7.9 mg/dl (8.6-10.4); GFR NON-AFRICAN AMERICAN > 60
[2018-07-27] MEDS: Cilostazol 100 mg Tab UD PO SCH (09:16)
[2018-07-27] MEDS: Enoxaparin 40 mg Syringe SC SCH (09:16)
[2018-07-27] MEDS: Potassium Chloride 20 mEq ER Tab PO SCH (09:17)
[2018-07-27] MEDS ORDERED: Potassium Chloride 20 mEq ER Tab PO ONE (13:15)
[2018-07-27] MEDS: Magnesium Sulfate 1 gm in D5W 1 GM/100 ML BAG IVPB SCH ×2 (13:17→13:37)
[2018-07-27 16:43] VITALS: BP 138/72; PULSE 74; TEMP 98; O2SAT 95
--- NOTE | 2018-07-27 17:15 | CP.PCM.PN ---
Subjective - Date & Time of Evaluation Date of Evaluation: 07/27/18 Time of Evaluation: 17:15 - Subjective Subjective: alaert, oriented, ambulating well, no signs of distress noted. Objective - Vital Signs/Intake and Output Vital Signs (last 24 hours): Temp Pulse Resp BP Pulse Ox 98 F 74 20 138/72 95 07/27/18 16:00 07/27/18 16:00 07/27/18 16:00 07/27/18 16:00 07/27/18 16:00 Intake and Output: 07/27/18 07/27/18 06:59 18:59 Intake Total 800 Balance 800 - Medications Medications: Current Medications Albuterol (Ventolin Hfa 90 Mcg/Actuation (8 G)) 2 puff IH RQ6 PRN PRN Reason: Shortness of Breath Aspirin (Aspirin Chewable) 81 mg PO DAILY [facility] Last Admin: 07/27/18 09:17 Dose: 81 mg Aspirin (Ecotrin) 81 mg PO DAILY [facility] Last Admin: 07/27/18 09:16 Dose: 81 mg Carvedilol (Coreg) 6.25 mg PO BID [facility] Last Admin: 07/27/18 09:16 Dose: 6.25 mg Cilostazol (Pletal) 100 mg PO Q12 [facility] Last Admin: 07/27/18 09:16 Dose: 100 mg Enoxaparin Sodium (Lovenox) 40 mg SC DAILY [facility] Last Admin: 07/27/18 09:16 Dose: 40 mg Famotidine (Pepcid) 40 mg PO DAILY [facility] Last Admin: 07/27/18 09:17 Dose: 40 mg Fluticasone Propionate (Flonase) 2 spr NS DAILY PRN PRN Reason: Nasal congestion Folic Acid (Folic Acid) 1 mg PO DAILY [facility] Last Admin: 07/27/18 09:16 Dose: 1 mg Furosemide (Lasix) 20 mg PO BID [facility] Last Admin: 07/27/18 09:18 Dose: 20 mg Gabapentin (Neurontin) 400 mg PO TID [facility] Last Admin: 07/27/18 13:17 Dose: 400 mg Lactulose (Enulose) 20 gm PO TID [facility] Last Admin: 07/27/18 13:20 Dose: 20 gm Memantine (Namenda) 10 mg PO DAILY [facility] Last Admin: 07/27/18 09:16 Dose: 10 mg Potassium Chloride (K-Dur 20 Meq Er Tab) 20 meq PO DAILY [facility] Last Admin: 07/27/18 09:17 Dose: 20 meq Potassium Chloride (K-Dur 20 Meq Er Tab) 40 meq PO BRK [facility] Last Admin: 07/27/18 08:35 Dose: 40 meq Rifaximin (Xifaxan) 550 mg PO Q12 [facility]; Protocol Last Admin: 07/27/18 09:16 Dose: 550 mg Thiamine HCl (Vitamin B1 Tab) 100 mg PO DAILY [facility] Last Admin: 07/27/18 09:17 Dose: 100 mg - Labs Labs: 07/27/18 07:58 07/27/18 07:58 PT 17.2 SECONDS (9.7-12.2) H 07/24/18 01:14 INR 1.6 07/24/18 01:14 APTT 35 SECONDS (21-34) H 07/24/18 01:14 Assessment and Plan - Assessment and Plan (Free Text) Assessment: Patient admitted with change in mental status and high ammonium level, seen and examined. Alert and orientedx3, eating well, denies any sob or distress. Seen by saleem Barraza discharge home today on previous medications. Advised to make sure he continue taking lactulose bid and follow up with PMD IN 1 WEEK. Ptient says he has all his previous meds at home from the last refil.
== END 2018-07-27 16:40 | disposition home or self-care (01) | DRG 433 ==
LOC: C.ER 00:31 → C.9E 03:31 → C.3T 16:46
PROVIDERS: ADMIT Internal Medicine Nephrology; ATTEND Internal Medicine Nephrology
DX: K70.30 Alcoholic cirrhosis of liver without ascites (principal); K70.40 Alcoholic hepatic failure without coma; E72.20 Disorder of urea cycle metabolism, unspecified; Z68.42 Body mass index [BMI] 45.0-49.9, adult; I11.0 Hypertensive heart disease with heart failure; I50.9 Heart failure, unspecified; I48.91 Unspecified atrial fibrillation; G62.9 Polyneuropathy, unspecified; R27.8 Other lack of coordination; J44.9 Chronic obstructive pulmonary disease, unspecified; F20.9 Schizophrenia, unspecified; F10.10 Alcohol abuse, uncomplicated; E11.9 Type 2 diabetes mellitus without complications; Y90.8 Blood alcohol level of 240 mg/100 ml or more; F17.210 Nicotine dependence, cigarettes, uncomplicated; E66.01 Morbid (severe) obesity due to excess calories; G31.9 Degenerative disease of nervous system, unspecified; F31.9 Bipolar disorder, unspecified; Z91.14 Patient's other noncompliance with medication regimen; Z90.49 Acquired absence of other specified parts of digestive tract

== ENCOUNTER 2018-09-14 19:34 | Inpatient (IN) | payer MEDICARE, OTHER ==
[2018-09-14 19:34] VITALS: BMI 40.6
[2018-09-14 20:17] LABS: BASO % 0.2 % (0.0-2.0); EOS % 0.3 % (0.0-4.0); HEMOGLOBIN 11.5 g/dL (12.0-18.0); LYMPH # 0.5 K/uL (1.0-4.3); MEAN CORPUSCULAR HGB CONC 33.6 g/dL (33.0-37.0); MEAN PLATELET VOLUME 8.1 fL (7.2-11.7); MONO % 0.3 % (0.0-10.0); NEUT # 6.7 K/uL (1.8-7.0); NEUT % 92.2 % (50.0-75.0); NRBC % 0.1 % (0.0-2.0); PLATELET COUNT 132 K/uL (130-400); RBC 3.97 Mil/uL (4.40-5.90); RED CELL DISTRIBUTION WIDTH 18.3 % (11.5-14.5)
[2018-09-14 20:23] LABS: MEAN CELL VOLUME 86.3 fL (80.0-94.0); WHITE BLOOD COUNT 7.3 K/uL (4.8-10.8)
--- NOTE | 2018-09-14 20:31 | C.PDOC ---
History Of Present Illness Patient presents to the ER with a complaint of chest pain and back pain. Patient took aspirin and ibuprofen [employer]. He reports he recently flew back today from the [place]. He is currently speaking incomplete sentences. Denies fever, chills, nausea, or vomiting. Patient has Hx of alcoholism, CHF, and end stage liver disease. Time Seen by Provider: 09/14/18 20:30 Chief Complaint (Nursing): Chest Pain History Per: Patient History/Exam Limitations: no limitations Onset/Duration Of Symptoms: Hrs Current Symptoms Are (Timing): Still Present Severity: Moderate Pain Scale Rating Of: 4 Associated Symptoms: denies: Nausea, Other (Fever, chills, vomiting) Modifying Factors: None Exacerbating Factors: None Alleviating Factors: None Recent travel outside of the [place]: Yes Additional History Per: Family Past Medical History Reviewed: Historical Data, Nursing Documentation, Vital Signs Vital Signs: Last Vital Signs Temp 99.6 F 09/14/18 19:43 Pulse 107 H 09/14/18 19:43 Resp 20 09/14/18 19:43 BP 125/47 L 09/14/18 19:43 Pulse Ox 98 09/14/18 19:43 - Medical History PMH: Anxiety, Arthritis, Asthma, Atrial Fibrillation, Bipolar Disorder, CHF, COPD (ASTHMA), Depression, Gall Bladder Disease, HTN, Schizophrenia Denies: Diabetes, Hepatitis, HIV, Chronic Kidney Disease, Seizures, Sexually Transmitted Disease Surgical History: Appendectomy, Cholecystectomy Denies: CABG, Coronary Stent, Pacemaker, Tonsillectomy - [facility] Procedures FLUOROSCOPY OF RIGHT JUGULAR VEINS, GUIDANCE (11/14/15) INSERT INFUSION DEV IN R INT JUGULAR VEIN, PERC (11/14/15) INTRODUCTION OF SERUM/TOX/VACCINE INTO MUSCLE, PERC APPROACH (05/28/17) REMOVAL OF INFUSION DEVICE FROM UPPER VEIN, SAFETY FIRE BOSS APPROACH (11/14/15) Family History: States: No Known Family Hx - Social History Hx Tobacco Use: No Hx Alcohol Use: Yes Hx Substance Use: No - Immunization History Hx Tetanus Toxoid Vaccination: No Hx Influenza Vaccination: No Hx Pneumococcal Vaccination: No Review Of Systems Constitutional: Negative for: Fever, Chills Cardiovascular: Positive for: Chest Pain Respiratory: Negative for: Cough, Shortness of Breath Gastrointestinal: Negative for: Nausea, Vomiting, Abdominal Pain Musculoskeletal: Positive for: Back Pain Neurological: Negative for: Weakness, Numbness Physical Exam - Physical Exam Appears: Non-toxic Skin: Warm, Dry, Jaundice Head: Normacephalic Eye(s): bilateral: Scleral Icterus (mild) Oral Mucosa: Moist Neck: Trachea Midline, Supple Chest: Symmetrical, No Tenderness Cardiovascular: Rhythm Regular Respiratory: No Rales, Rhonchi, No Wheezing Gastrointestinal/Abdominal: Soft, No Tenderness, Distention (Positive fluid wave), No Guarding, No Rebound Back: CVA Tenderness Extremity: Pedal Edema (Bilateral w/ venoustasis chronic skin changes) Extremity: Bilateral: Atraumatic, Normal ROM Pulses: Left Dorsalis Pedis: Normal, Right Dorsalis Pedis: Normal Neurological/Psych: Oriented x3, Other (no asterixis) Gait: With Assistance ED Course And Treatment - Laboratory Results Result Diagrams: 09/14/18 20:09 09/14/18 20:09 ECG: Interpreted By Me, Viewed By Me ECG Rhythm: Sinus Rhythm (108), R BBB, Nonspecific Changes (poss left post fascicular block) O2 Sat by Pulse Oximetry: 98 (Room air) Pulse Ox Interpretation: Normal - Radiology CXR: Interpreted by Me, Viewed By Me CXR Interpretation: Yes: No Acute Disease, Cardiomegaly, Other (unchanged from 07/24/18). No: Infiltrates, Fracture Progress Note: Blood work, CXR, and urinalysis ordered. Enulose, lovenox, morphine, and zofran administered. Disposition Discussed With : Carlos Liu Comment: accepted the pt on his service and took over the care at 10:08 PM Counseled Patient/Family Regarding: Studies Performed, Diagnosis - Disposition Disposition: HOSPITALIZED Disposition Time: 20:30 Condition: GUARDED Forms: [facility] (Thai) - POA Present On Arrival: None - Clinical Impression Clinical Impression: Dyspnea, Venous stasis dermatitis of both lower extremities, Hypokalemia, History of alcohol abuse, Hyperbilirubinemia, Hyperammonemia - Scribe Statement The provider has reviewed the documentation as recorded by the Scribzan Moncada All medical record entries made by the Scribe were at my direction and personally dictated by me. I have reviewed the chart and agree that the record a ccurately reflects my personal performance of the history, physical exam, medical decision making, and the department course for this patient. I have also personally directed, reviewed, and agree with the discharge instructions and disposition. Decision To Admit - Pt Status Changed To: Hospital Disposition Of: Inpatient - Admit Certification Admit to Inpatient:: After my assessment, the patient will require hospitalization for at least two midnights. This is because of the severity of symptoms shown, intensity of services needed, and/or the medical risk in this patient being treated as an outpatient. - InPatient: Physician Admission Certification: I certify that this patient requires 2 or more midnights of care for the following reason:: After my assessment, the patient will require hospitalization for at least two midnights. This is because of the severity of symptoms shown, intensity of services needed, and/or the medical risk in this patient being treated as an outpatient. - . Bed Request Type: Telemetry Admitting Physician: Carlos Liu Patient Diagnosis: Dyspnea, Venous stasis dermatitis of both lower extremities, Hypokalemia, History of alcohol abuse, Hyperbilirubinemia, Hyperammonemia
[2018-09-14 20:32] LABS: ALB/GLOB RATIO 0.5 (1.0-2.1); ALBUMIN 2.7 g/dL (3.5-5.0); ALT/SGPT 21 U/L (21-72); AST/SGOT 69 U/L (17-59); BLOOD UREA NITROGEN 22 mg/dL (9-20); CALCIUM 6.6 mg/dl (8.6-10.4); GFR NON-AFRICAN AMERICAN > 60
[2018-09-14 20:34] LABS: INR 1.9; PROTHROMBIN TIME 20.8 SECONDS (9.7-12.2)
[2018-09-14] MEDS ORDERED: Morphine 4 MG/ML VIAL ONE (20:55)
[2018-09-14 20:56] LABS: LIPASE 133 U/L (23-300)
[2018-09-14] MEDS ORDERED: Enoxaparin 40 mg Syringe SC STA (20:58)
[2018-09-14 21:03] LABS: BANDS 10 % (0-2); LYMPHOCYTE 5 % (20-40); MONOCYTE 1 % (0-10); MYELOCYTE 1 % (0-0); NEUTROPHIL 83 % (50-75); PLATELET ESTIMATE NORMAL (NORMAL); TOTAL CELLS COUNTED 100
[2018-09-14 21:04] LABS: ANISOCYTOSIS SLIGHT; LARGE PLATELETS PRESENT
[2018-09-14 21:06] LABS: B-TYPE NATRIURETIC PEPTIDE 369 pg/mL (0-450)
[2018-09-14] MEDS ORDERED: Enoxaparin 100 mg Syringe ONE (21:24)
[2018-09-14] MEDS ORDERED: Enoxaparin 30 mg Syringe ONE (21:24)
[2018-09-14] MEDS ORDERED: Potassium Chloride 20 mEq 100 ML ONE (21:24)
[2018-09-14 22:01] LABS: VENOUS BLOOD GAS PCO2 36 mmHg (40-60); VENOUS BLOOD GAS PO2 42 mm/Hg (30-55)
[2018-09-15 00:31] LABS: SQUAMOUS EPITHIAL 2 /hpf (0-5); URINE BACTERIA RARE (<OCC); URINE BILIRUBIN NEGATIVE (NEGATIVE); URINE BLOOD NEGATIVE (NEGATIVE); URINE CLARITY Clear (Clear); URINE COLOR Amber (YELLOW); URINE GLUCOSE (UA) NORMAL (Normal); URINE LEUKOCYTE ESTERASE NEG Leu/uL (Negative); URINE PROTEIN 1+ mg/dL (NEGATIVE)
[2018-09-15] MEDS ORDERED: Fluticasone Nasal 50 mcg/Spray NAS PRN (00:40)
[2018-09-15] MEDS: Piperacillin/Tazobact 3.375 GM in Sodium Chloride 100 ML IVPB SCH ×3 (01:01→17:00)
[2018-09-15] MEDS ORDERED: Albuterol-Ipratrop 3 mg / 0.5 (3 ml) UD INH ONE (02:37)
[2018-09-15] MEDS: Albuterol-Ipratrop 3 mg / 0.5 (3 ml) UD INH PRN ×2 (07:55→13:32)
[2018-09-15] MEDS: Cilostazol 100 mg Tab UD PO SCH ×2 (11:00→21:27)
[2018-09-15] MEDS: Enoxaparin 40 mg Syringe SC SCH (11:00)
[2018-09-15] MEDS: Potassium Chloride 20 mEq ER Tab PO SCH (11:00)
--- NOTE | 2018-09-15 11:07 | RAD ---
HISTORY: abd pain COMPARISON: Chest x-ray performed 07/24/18 TECHNIQUE: Chest, one view. FINDINGS: Evaluation limited by habitus. The patient's chin obscures evaluation of the lung apices. LUNGS: No focal consolidation. Please note that chest x-ray has limited sensitivity for the detection of pulmonary masses. PLEURA: No significant pleural effusion identified. No definite pneumothorax . CARDIOVASCULAR: Cardiomegaly. OSSEOUS STRUCTURES: Degenerative changes. Chronic left 4th rib fracture deformity. VISUALIZED UPPER ABDOMEN: Unremarkable. OTHER FINDINGS: None. IMPRESSION: Cardiomegaly. No focal consolidation.
[2018-09-15] MEDS ORDERED: Phytonadione 10 mg/ml Inj (Adult) SC STA (12:05)
--- NOTE | 2018-09-15 14:18 | CP.PCM.HP ---
Past Patient History - Infectious Disease Hx of Infectious Diseases: None - Tetanus Immunizations Tetanus Immunization: Unknown - Past Medical History & Family History Past Medical History?: Yes - Past Social History Smoking Status: Former Smoker - CARDIAC Hx Cardiac Disorders: Yes Hx Atrial Fibrillation: Yes Hx Congestive Heart Failure: Yes Hx Hypertension: Yes Hx Pacemaker: No - PULMONARY Hx Respiratory Disorders: Yes Hx Asthma: Yes Hx Chronic Obstructive Pulmonary Disease (COPD): Yes (ASTHMA) - NEUROLOGICAL Hx Neurological Disorder: No Hx Seizures: No - HEENT Hx HEENT Problems: No - RENAL Hx Chronic Kidney Disease: No - ENDOCRINE/METABOLIC Hx Endocrine Disorders: No - HEMATOLOGICAL/ONCOLOGICAL Hx Blood Disorders: No Hx Human Immunodeficiency Virus (HIV): No - INTEGUMENTARY Hx Dermatological Problems: No - MUSCULOSKELETAL/RHEUMATOLOGICAL Hx Musculoskeletal Disorders: Yes Hx Arthritis: Yes Hx Falls: No - GASTROINTESTINAL Hx Gastrointestinal Disorders: Yes Hx Gall Bladder Disease: Yes - GENITOURINARY/GYNECOLOGICAL Hx Genitourinary Disorders: No Hx Sexually Transmitted Disorders: No - PSYCHIATRIC Hx Psychophysiologic Disorder: Yes Hx Anxiety: Yes Hx Bipolar Disorder: No Hx Depression: No Hx Schizophrenia: No Hx Substance Use: No - SURGICAL HISTORY Hx Surgeries: Yes Hx Appendectomy: Yes Hx Cholecystectomy: Yes Hx Coronary Artery Bypass Graft: No Hx Coronary Stent: No Hx Tonsillectomy: No - ANESTHESIA Hx Anesthesia: Yes Hx Anesthesia Reactions: No Hx Malignant Hyperthermia: No Meds Allergies/Adverse Reactions: Allergies Allergy/AdvReac Type Severity Reaction Status Date / Time No Known Allergies Allergy Verified 09/14/18 19:46 Results - Vital Signs Recent Vital Signs: Last Vital Signs Temp 98.6 F 09/15/18 07:00 Pulse 123 H 09/15/18 07:50 Resp 20 09/15/18 07:00 BP 109/68 09/15/18 11:00 Pulse Ox 98 09/15/18 07:00 - Labs Result Diagrams: 09/14/18 20:09 09/14/18 20:09 Labs: Laboratory Results - last 24 hr 09/14/18 09/14/18 09/14/18 20:09 20:09 20:09 WBC 7.3 D RBC 3.97 L Hgb 11.5 L Hct 34.3 L MCV 86.3 D MCH 29.0 MCHC 33.6 RDW 18.3 H Plt Count 132 MPV 8.1 Neut % (Auto) 92.2 H Lymph % (Auto) 7.0 L [place] % (Auto) 0.3 Eos % (Auto) 0.3 Baso % (Auto) 0.2 Neut # (Auto) 6.7 Lymph # (Auto) 0.5 L [place] # (Auto) 0.0 Eos # (Auto) 0.0 Baso # (Auto) 0.0 Neutrophils % (Manual) 83 H Band Neutrophils % 10 H Lymphocytes % (Manual) 5 L Monocytes % (Manual) 1 Myelocytes % 1 H Platelet Estimate Normal Large Platelets Present Anisocytosis (manual) Slight PT 20.8 H INR 1.9 APTT 33 D-Dimer, Quantitative pO2 VBG pH VBG pCO2 VBG HCO3 VBG Total CO2 VBG O2 Sat (Calc) VBG Base Excess VBG Potassium Glucose Lactate Crit Value Called To Crit Value Called By Crit Value Read Back Blood Gas Notified Time Sodium 130 L Potassium 3.0 L Chloride 97 L Carbon Dioxide 24 Anion Gap 11 BUN 22 H Creatinine 1.2 Est GFR ( Amer) > 60 Est GFR (Non-Af Amer) > 60 Random Glucose 96 Calcium 6.6 L Total Bilirubin 2.6 H AST 69 H ALT 21 D Alkaline Phosphatase 224 H D Ammonia Troponin I < 0.0120 NT-Pro-B Natriuret Pep Total Protein 8.5 H Albumin 2.7 L Globulin 5.7 H Albumin/Globulin Ratio 0.5 L Lipase Venous Blood Potassium Urine Color Urine Clarity Urine pH Ur Specific [place] Urine Protein Urine Glucose (UA) Urine Ketones Urine Blood Urine Nitrate Urine Bilirubin Urine Urobilinogen Ur Leukocyte Esterase Urine WBC (Auto) Urine RBC (Auto) Ur Squamous Epith Cells Urine Bacteria Hyaline Casts 09/14/18 09/14/18 09/14/18 20:09 20:37 20:37 WBC RBC Hgb Hct MCV MCH MCHC RDW Plt Count MPV Neut % (Auto) Lymph % (Auto) [place] % (Auto) Eos % (Auto) Baso % (Auto) Neut # (Auto) Lymph # (Auto) [place] # (Auto) Eos # (Auto) Baso # (Auto) Neutrophils % (Manual) Band Neutrophils % Lymphocytes % (Manual) Monocytes % (Manual) Myelocytes % Platelet Estimate Large Platelets Anisocytosis (manual) PT INR APTT D-Dimer, Quantitative 5146 H pO2 VBG pH VBG pCO2 VBG HCO3 VBG Total CO2 VBG O2 Sat (Calc) VBG Base Excess VBG Potassium Glucose Lactate Crit Value Called To Crit Value Called By Crit Value Read Back Blood Gas Notified Time Sodium Potassium Chloride Carbon Dioxide Anion Gap BUN Creatinine Est GFR ( Amer) Est GFR (Non-Af Amer) Random Glucose Calcium Total Bilirubin AST ALT Alkaline Phosphatase Ammonia 69 H Troponin I NT-Pro-B Natriuret Pep 369 Total Protein Albumin Globulin Albumin/Globulin Ratio Lipase 133 Venous Blood Potassium Urine Color Urine Clarity Urine pH Ur Specific [place] Urine Protein Urine Glucose (UA) Urine Ketones Urine Blood Urine Nitrate Urine Bilirubin Urine Urobilinogen Ur Leukocyte Esterase Urine WBC (Auto) Urine RBC (Auto) Ur Squamous Epith Cells Urine Bacteria Hyaline Casts 09/14/18 09/15/18 21:58 00:19 WBC RBC Hgb Hct MCV MCH MCHC RDW Plt Count MPV Neut % (Auto) Lymph % (Auto) [place] % (Auto) Eos % (Auto) Baso % (Auto) Neut # (Auto) Lymph # (Auto) [place] # (Auto) Eos # (Auto) Baso # (Auto) Neutrophils % (Manual) Band Neutrophils % Lymphocytes % (Manual) Monocytes % (Manual) Myelocytes % Platelet Estimate Large Platelets Anisocytosis (manual) PT INR APTT D-Dimer, Quantitative pO2 42 VBG pH 7.40 VBG pCO2 36 L VBG HCO3 22.8 VBG Total CO2 23.4 VBG O2 Sat (Calc) 82.6 H VBG Base Excess -2.0 L VBG Potassium 9.1 H* Glucose 74 L Lactate 1.9 Crit Value Called To Dr cooper Crit Value Called By Erwin arce Crit Value Read Back Y Blood Gas Notified Time 2200 Sodium 125.0 L Potassium Chloride 100.0 Carbon Dioxide Anion Gap BUN Creatinine Est GFR ( Amer) Est GFR (Non-Af Amer) Random Glucose Calcium Total Bilirubin AST ALT Alkaline Phosphatase Ammonia Troponin I NT-Pro-B Natriuret Pep Total Protein Albumin Globulin Albumin/Globulin Ratio Lipase Venous Blood Potassium 9.1 H* Urine Color Aide Urine Clarity Clear Urine pH 5.0 Ur Specific [place] 1.014 Urine Protein 1+ H Urine Glucose (UA) Normal Urine Ketones Negative Urine Blood Negative Urine Nitrate Negative Urine Bilirubin Negative Urine Urobilinogen 4.0 Ur Leukocyte Esterase Neg Urine WBC (Auto) 6 H Urine RBC (Auto) < 1 Ur Squamous Epith Cells 2 Urine Bacteria Rare Hyaline Casts 3-5 H
--- NOTE | 2018-09-15 15:07 | CP.PCM.CON ---
History of Present Illness - History of Present Illness History of Present Illness: GI Fellow PGY4, consult note. Patient is 47M, kenyan-speaking only presenting with confusion, abdomen/back pain. He has a history of EtOH abuse, ESLD, CHF. Patient is confused and so history is gained from the chart. Patient has well document alcoholic cirrhosis, previous MELD 15. He has no EGD report to my knowledge. I have not seen a paracentesis in the chart history as well. Previous imaging does not show ascites. I cannot tell if patient is compliant with medications or if he has been drinking regularly. Alcohol level was elevated in the last few months. PMHx: See HPI PSHx: Appendectomy FHx: denies any significant FHx Social: Regular alcohol abuse; Denies tobacco or illicit drug use Endo: No prior endoscopic evaluations Unable to obtain 12pt ROS due to AMS. Past Patient History - Infectious Disease Hx of Infectious Diseases: None - Tetanus Immunizations Tetanus Immunization: Unknown - Past Medical History & Family History Past Medical History?: Yes - Past Social History Smoking Status: Former Smoker - CARDIAC Hx Cardiac Disorders: Yes Hx Atrial Fibrillation: Yes Hx Congestive Heart Failure: Yes Hx Hypertension: Yes Hx Pacemaker: No - PULMONARY Hx Respiratory Disorders: Yes Hx Asthma: Yes Hx Chronic Obstructive Pulmonary Disease (COPD): Yes (ASTHMA) - NEUROLOGICAL Hx Neurological Disorder: No Hx Seizures: No - HEENT Hx HEENT Problems: No - RENAL Hx Chronic Kidney Disease: No - ENDOCRINE/METABOLIC Hx Endocrine Disorders: No - HEMATOLOGICAL/ONCOLOGICAL Hx Blood Disorders: No Hx Human Immunodeficiency Virus (HIV): No - INTEGUMENTARY Hx Dermatological Problems: No - MUSCULOSKELETAL/RHEUMATOLOGICAL Hx Musculoskeletal Disorders: Yes Hx Arthritis: Yes Hx Falls: No - GASTROINTESTINAL Hx Gastrointestinal Disorders: Yes Hx Gall Bladder Disease: Yes - GENITOURINARY/GYNECOLOGICAL Hx Genitourinary Disorders: No Hx Sexually Transmitted Disorders: No - PSYCHIATRIC Hx Psychophysiologic Disorder: Yes Hx Anxiety: Yes Hx Bipolar Disorder: No Hx Depression: No Hx Schizophrenia: No Hx Substance Use: No - SURGICAL HISTORY Hx Surgeries: Yes Hx Appendectomy: Yes Hx Cholecystectomy: Yes Hx Coronary Artery Bypass Graft: No Hx Coronary Stent: No Hx Tonsillectomy: No - ANESTHESIA Hx Anesthesia: Yes Hx Anesthesia Reactions: No Hx Malignant Hyperthermia: No Meds Allergies/Adverse Reactions: Allergies Allergy/AdvReac Type Severity Reaction Status Date / Time No Known Allergies Allergy Verified 09/14/18 19:46 - Medications Medications: Current Medications Albuterol/Ipratropium (Duoneb 3 Mg/0.5 Mg (3 Ml) Ud) 3 ml INH RQ6 PRN PRN Reason: Shortness of Breath Last Admin: 09/15/18 13:32 Dose: 3 ml Aspirin (Aspirin Chewable) 81 mg PO DAILY [facility] Last Admin: 09/15/18 11:00 Dose: 81 mg Carvedilol (Coreg) 3.125 mg PO BID [facility] Last Admin: 09/15/18 11:00 Dose: 3.125 mg Cilostazol (Pletal) 100 mg PO Q12 [facility] Last Admin: 09/15/18 11:00 Dose: 100 mg Enoxaparin Sodium (Lovenox) 40 mg SC DAILY [facility] Last Admin: 09/15/18 11:00 Dose: 40 mg Famotidine (Pepcid) 20 mg PO DAILY [facility] Last Admin: 09/15/18 11:00 Dose: 20 mg Fluticasone Propionate (Flonase) 1 spr EMRE DAILY PRN PRN Reason: congestion Folic Acid (Folic Acid) 1 mg PO DAILY [facility] Last Admin: 09/15/18 11:00 Dose: 1 mg Furosemide (Lasix) 20 mg IVP BID [facility] Last Admin: 09/15/18 11:00 Dose: 20 mg Gabapentin (Neurontin) 400 mg PO TID [facility] Last Admin: 09/15/18 13:13 Dose: 400 mg Piperacillin Sod/Tazobactam (Sod 3.375 gm/ Sodium Chloride) 100 mls @ 200 mls/hr IVPB Q8H [facility]; Protocol Last Admin: 09/15/18 07:58 Dose: 200 mls/hr Influenza Virus Vaccine (Flucelvax Quad [id number] Syr) 60 mcg IM .ONCE ONE Stop: 09/17/18 14:01 Lactulose (Enulose) 30 gm PO Q8 [facility] Last Admin: 09/15/18 13:25 Dose: 30 gm Morphine Sulfate (Morphine) 1 mg IVP Q6H PRN PRN Reason: pain Last Admin: 09/15/18 01:02 Dose: 1 mg Potassium Chloride (K-Dur 20 Meq Er Tab) 20 meq PO DAILY [facility] Last Admin: 09/15/18 11:00 Dose: 20 meq Physical Exam - Constitutional Appears: Agitated, Confused, Chronically Ill Additional comments: +jaundice - Eye Exam Eye Exam: EOMI, Normal appearance, Scleral icterus - ENT Exam ENT Exam: Mucous Membranes Moist, Normal Exam - Respiratory Exam Respiratory Exam: Clear to Auscultation Bilateral, NORMAL BREATHING PATTERN - Cardiovascular Exam Cardiovascular Exam: Tachycardia, +S1, +S2 - GI/Abdominal Exam GI & Abdominal Exam: Normal Bowel Sounds, Soft. absent: Guarding, Organomegaly, Tenderness Additional comments: +fluid wave - Extremities Exam Extremities exam: Positive for: pedal edema. Negative for: normal inspection - Neurological Exam Neurological exam: Altered - Psychiatric Exam Psychiatric exam: Flat Affect - Skin Skin Exam: Warm Results - Vital Signs Recent Vital Signs: Last Vital Signs Temp 98.6 F 09/15/18 07:00 Pulse 123 H 09/15/18 07:50 Resp 20 09/15/18 07:00 BP 109/68 09/15/18 11:00 Pulse Ox 98 09/15/18 07:00 - Labs Result Diagrams: 09/14/18 20:09 09/14/18 20:09 Labs: Laboratory Results - last 24 hr 09/14/18 09/14/18 09/14/18 20:09 20:09 20:09 WBC 7.3 D RBC 3.97 L Hgb 11.5 L Hct 34.3 L MCV 86.3 D MCH 29.0 MCHC 33.6 RDW 18.3 H Plt Count 132 MPV 8.1 Neut % (Auto) 92.2 H Lymph % (Auto) 7.0 L [place] % (Auto) 0.3 Eos % (Auto) 0.3 Baso % (Auto) 0.2 Neut # (Auto) 6.7 Lymph # (Auto) 0.5 L [place] # (Auto) 0.0 Eos # (Auto) 0.0 Baso # (Auto) 0.0 Neutrophils % (Manual) 83 H Band Neutrophils % 10 H Lymphocytes % (Manual) 5 L Monocytes % (Manual) 1 Myelocytes % 1 H Platelet Estimate Normal Large Platelets Present Anisocytosis (manual) Slight PT 20.8 H INR 1.9 APTT 33 D-Dimer, Quantitative pO2 VBG pH VBG pCO2 VBG HCO3 VBG Total CO2 VBG O2 Sat (Calc) VBG Base Excess VBG Potassium Glucose Lactate Crit Value Called To Crit Value Called By Crit Value Read Back Blood Gas Notified Time Sodium 130 L Potassium 3.0 L Chloride 97 L Carbon Dioxide 24 Anion Gap 11 BUN 22 H Creatinine 1.2 Est GFR ( Amer) > 60 Est GFR (Non-Af Amer) > 60 Random Glucose 96 Calcium 6.6 L Total Bilirubin 2.6 H AST 69 H ALT 21 D Alkaline Phosphatase 224 H D Ammonia Troponin I < 0.0120 NT-Pro-B Natriuret Pep Total Protein 8.5 H Albumin 2.7 L Globulin 5.7 H Albumin/Globulin Ratio 0.5 L Lipase Venous Blood Potassium Urine Color Urine Clarity Urine pH Ur Specific [place] Urine Protein Urine Glucose (UA) Urine Ketones Urine Blood Urine Nitrate Urine Bilirubin Urine Urobilinogen Ur Leukocyte Esterase Urine WBC (Auto) Urine RBC (Auto) Ur Squamous Epith Cells Urine Bacteria Hyaline Casts 09/14/18 09/14/18 09/14/18 20:09 20:37 20:37 WBC RBC Hgb Hct MCV MCH MCHC RDW Plt Count MPV Neut % (Auto) Lymph % (Auto) [place] % (Auto) Eos % (Auto) Baso % (Auto) Neut # (Auto) Lymph # (Auto) [place] # (Auto) Eos # (Auto) Baso # (Auto) Neutrophils % (Manual) Band Neutrophils % Lymphocytes % (Manual) Monocytes % (Manual) Myelocytes % Platelet Estimate Large Platelets Anisocytosis (manual) PT INR APTT D-Dimer, Quantitative 5146 H pO2 VBG pH VBG pCO2 VBG HCO3 VBG Total CO2 VBG O2 Sat (Calc) VBG Base Excess VBG Potassium Glucose Lactate Crit Value Called To Crit Value Called By Crit Value Read Back Blood Gas Notified Time Sodium Potassium Chloride Carbon Dioxide Anion Gap BUN Creatinine Est GFR ( Amer) Est GFR (Non-Af Amer) Random Glucose Calcium Total Bilirubin AST ALT Alkaline Phosphatase Ammonia 69 H Troponin I NT-Pro-B Natriuret Pep 369 Total Protein Albumin Globulin Albumin/Globulin Ratio Lipase 133 Venous Blood Potassium Urine Color Urine Clarity Urine pH Ur Specific [place] Urine Protein Urine Glucose (UA) Urine Ketones Urine Blood Urine Nitrate Urine Bilirubin Urine Urobilinogen Ur Leukocyte Esterase Urine WBC (Auto) Urine RBC (Auto) Ur Squamous Epith Cells Urine Bacteria Hyaline Casts 09/14/18 09/15/18 21:58 00:19 WBC RBC Hgb Hct MCV MCH MCHC RDW Plt Count MPV Neut % (Auto) Lymph % (Auto) [place] % (Auto) Eos % (Auto) Baso % (Auto) Neut # (Auto) Lymph # (Auto) [place] # (Auto) Eos # (Auto) Baso # (Auto) Neutrophils % (Manual) Band Neutrophils % Lymphocytes % (Manual) Monocytes % (Manual) Myelocytes % Platelet Estimate Large Platelets Anisocytosis (manual) PT INR APTT D-Dimer, Quantitative pO2 42 VBG pH 7.40 VBG pCO2 36 L VBG HCO3 22.8 VBG Total CO2 23.4 VBG O2 Sat (Calc) 82.6 H VBG Base Excess -2.0 L VBG Potassium 9.1 H* Glucose 74 L Lactate 1.9 Crit Value Called To Dr cooper Crit Value Called By Erwin arce Crit Value Read Back Y Blood Gas Notified Time 2200 Sodium 125.0 L Potassium Chloride 100.0 Carbon Dioxide Anion Gap BUN Creatinine Est GFR ( Amer) Est GFR (Non-Af Amer) Random Glucose Calcium Total Bilirubin AST ALT Alkaline Phosphatase Ammonia Troponin I NT-Pro-B Natriuret Pep Total Protein Albumin Globulin Albumin/Globulin Ratio Lipase Venous Blood Potassium 9.1 H* Urine Color Aide Urine Clarity Clear Urine pH 5.0 Ur Specific [place] 1.014 Urine Protein 1+ H Urine Glucose (UA) Normal Urine Ketones Negative Urine Blood Negative Urine Nitrate Negative Urine Bilirubin Negative Urine Urobilinogen 4.0 Ur Leukocyte Esterase Neg Urine WBC (Auto) 6 H Urine RBC (Auto) < 1 Ur Squamous Epith Cells 2 Urine Bacteria Rare Hyaline Casts 3-5 H Assessment & Plan - Assessment and Plan (Free Text) Assessment: #Acute metabolic encephalopathy #Suspected ascites - previously no ascites in history #Bandemia #?CHERRIE #Decompensated Alcoholic cirrhosis #CHF #Alcohol abuse PLAN: -Labs reviewed, MELD 24. -Presentation concerning for hepatic encephalopathy vs SBP vs EtOH w/d most likely -Given bandemia and possibility of SBP, agree with broad spectrum Abx Zosyn. -Recommend U/S to identify ascites and paracentesis if possible -Hold coreg in possible setting of SBP -Sodium/fluid restricted diet -Paracentesis ordered with cell count, culture, TP, albumin, cytology, gram stain, LDH -Lacutlose and Xifaxan for ?HE. -Diuretic per primary team, although he may have CHERRIE and possible SBP, recommend proceed cautiously, obtain CXR. If SBP, CHERRIE worsening, he may benefit from Albumin 25%. Case discussed with Dr. Arriola, see attestation. - Date & Time Date: 09/15/18 Time: 15:12
--- NOTE | 2018-09-15 15:39 | RAD ---
Date of service: 09/15/2018 HISTORY: SOB, r/o CHF COMPARISON: Chest radiographs 09/14/2018. FINDINGS: LUNGS: No active pulmonary disease. PLEURA: No significant pleural effusion identified, no pneumothorax apparent. CARDIOVASCULAR: Calcific atherosclerotic changes are seen related to the thoracic aorta. Cardiomegaly identified. Engorgement of the hilar vascular anatomy with increased hazy margins suggests pulmonary vascular congestion. OSSEOUS STRUCTURES: No significant abnormalities. VISUALIZED UPPER ABDOMEN: Normal. OTHER FINDINGS: None. IMPRESSION: [id number] pulmonary vascular congestion. Cardiomegaly stable. No infiltrate or pleural effusion bilaterally.
--- NOTE | 2018-09-15 17:36 | CP.PCM.CON ---
History of Present Illness - History of Present Illness History of Present Illness: Patient presents to the ER with a complaint of chest pain and back pain. Patient took aspirin and ibuprofen [employer]. He reports he recently flew back today from [place]. He is currently speaking incomplete sentences. Denies fever, chills, nausea, or vomiting. Patient has Hx of alcoholism, CHF, and end stage liver disease. - Medical History PMH: Anxiety, Arthritis, Asthma, Atrial Fibrillation, Bipolar Disorder, CHF, COPD (ASTHMA), Depression, Gall Bladder Disease, HTN, Schizophrenia Denies: Diabetes, Hepatitis, HIV, Chronic Kidney Disease, Seizures, Sexually Transmitted Disease Surgical History: Appendectomy, Cholecystectomy Denies: CABG, Coronary Stent, Pacemaker, Tonsillectomy - [facility] Procedures FLUOROSCOPY OF RIGHT JUGULAR VEINS, GUIDANCE (11/14/15) INSERT INFUSION DEV IN R INT JUGULAR VEIN, PERC (11/14/15) INTRODUCTION OF SERUM/TOX/VACCINE INTO MUSCLE, PERC APPROACH (05/28/17) REMOVAL OF INFUSION DEVICE FROM UPPER VEIN, CLINIC ASSISTANT APPROACH (11/14/15) Review of Systems - Constitutional Constitutional: As Per HPI, Chills, Fever, Malaise - EENT Eyes: absent: As Per HPI, Blind Spots, Blurred Vision, Change in Vision, Decreased Night Vision, Diplopia, Discharge, Dry Eye, Exophthalmos, Floaters, Irritation, Itchy Eyes, Loss of Peripheral Vision, Pain, Photophobia, Requires Corrective Lenses, Sees Flashes, Spots in Vision, Tunnel Vision, Other Visual Disturbances, Loss of Vision, Other Ears: absent: As Per HPI, Decreased Hearing, Ear Discharge, Ear Pain, Tinnitus, Abnormal Hearing, Disequilibrium, Dizziness, Other Nose/Mouth/Throat: absent: As Per HPI, Epistaxis, Nasal Congestion, Nasal Discharge, Nasal Obstruction, Nasal Trauma, Nose Pain, Post Nasal Drip, Sinus Pain, Sinus Pressure, Bleeding Gums, Change in Voice, Dental Pain, Dry Mouth, Dysphagia, Halitosis, Hoarsness, Lip Swelling, Mouth Lesions, Mouth Pain, Odynophagia, Sore Throat, Throat Swelling, Tongue Swelling, Facial Pain, Neck Pain, Neck Mass, Other - Cardiovascular Cardiovascular: absent: As Per HPI, Acrocyanosis, Chest Pain, Chest Pain at Rest, Chest Pain with Activity, Claudication, Diaphoresis, Dyspnea, Dyspnea on Exertion, Edema, Irregular Heart Rhythm, Pain Radiating to Arm/Neck/Jaw, Leg Edema, Leg Ulcers, Lightheadedness, Orthopnea, Palpitations, Paroxysmal Nocturnal Dyspnea, Pedal Edema, Radiating Pain, Rapid Heart Rate, Slow Heart Rate, Syncope, Other - Respiratory Respiratory: absent: As Per HPI, Cough, Dyspnea, Hemoptysis, Dyspnea on Exertion, Wheezing, Snoring, Stridor, Pain on Inspiration, Chest Congestion, Excessive Mucous Production, Change in Mucous Color, Pain with Coughing, Other - Gastrointestinal Gastrointestinal: As Per HPI - Genitourinary Genitourinary: absent: As Per HPI, Change in Urinary Stream, Difficulty Urinating, Dysuria, Flank Pain, Hematuria, Pyuria, Nocturia, Urinary Inconti nence, Urinary Frequency, Urinary Hesitance, Urinary Urgency, Voiding Freq/Small Amts, Freq UTI, Hx Renal/Bladder Calculi, Hx /Renal Surgery, Bladder Distension, Other - Musculoskeletal Musculoskeletal: absent: As Per HPI, Abnormal Gait, Arthralgias, Atrophy, Back Pain, Deformity, Joint Swelling, Limited Range of Motion, Loss of Height, Muscle Cramps, Muscle Weakness, Myalgias, Neck Pain, Numbness, Radiating Pain into Limb, Stiffness, Tingling, Other - Integumentary Integumentary: As Per HPI - Neurological Neurological: As Per HPI - Psychiatric Psychiatric: absent: As Per HPI, Abnormal Sleep Pattern, Anhedonia, Anxiety, Auditory Hallucinations, Behavioral Changes, Change in Appetite, Change in Libido, Confusion, Depression, Difficulty Concentrating, Hallucinations, Homicidal Ideation, Hopelessness, Irritability, Memory Loss, Mood Swings, Panic Attacks, Paranoia, Suicidal Ideation, Visual Hallucinations, Tactile Hallucinations, Other - Endocrine Endocrine: absent: As Per HPI, Change in Body Appearance, Change in Libido, Cold Intolorance, Deepening of Voice, Excessive Sweating, Fatigue, Flushing, Heat Intolorance, Increase in Ring/Shoe/Hat Size, Palpitations, Polydipsia, Polyphagia, Polyuria, Other - Hematologic/Lymphatic Hematologic: absent: As Per HPI, Easy Bleeding, Easy Bruising, Lymphadenopathy, Other Past Patient History - Infectious Disease Hx of Infectious Diseases: None - Tetanus Immunizations Tetanus Immunization: Unknown - Past Medical History & Family History Past Medical History?: Yes - Past Social History Smoking Status: Former Smoker - CARDIAC Hx Cardiac Disorders: Yes Hx Atrial Fibrillation: Yes Hx Congestive Heart Failure: Yes Hx Hypertension: Yes Hx Pacemaker: No - PULMONARY Hx Respiratory Disorders: Yes Hx Asthma: Yes Hx Chronic Obstructive Pulmonary Disease (COPD): Yes (ASTHMA) - NEUROLOGICAL Hx Neurological Disorder: No Hx Seizures: No - HEENT Hx HEENT Problems: No - RENAL Hx Chronic Kidney Disease: No - ENDOCRINE/METABOLIC Hx Endocrine Disorders: No - HEMATOLOGICAL/ONCOLOGICAL Hx Blood Disorders: No Hx Human Immunodeficiency Virus (HIV): No - INTEGUMENTARY Hx Dermatological Problems: No - MUSCULOSKELETAL/RHEUMATOLOGICAL Hx Musculoskeletal Disorders: Yes Hx Arthritis: Yes Hx Falls: No - GASTROINTESTINAL Hx Gastrointestinal Disorders: Yes Hx Gall Bladder Disease: Yes - GENITOURINARY/GYNECOLOGICAL Hx Genitourinary Disorders: No Hx Sexually Transmitted Disorders: No - PSYCHIATRIC Hx Psychophysiologic Disorder: Yes Hx Anxiety: Yes Hx Bipolar Disorder: No Hx Depression: No Hx Schizophrenia: No Hx Substance Use: No - SURGICAL HISTORY Hx Surgeries: Yes Hx Appendectomy: Yes Hx Cholecystectomy: Yes Hx Coronary Artery Bypass Graft: No Hx Coronary Stent: No Hx Tonsillectomy: No - ANESTHESIA Hx Anesthesia: Yes Hx Anesthesia Reactions: No Hx Malignant Hyperthermia: No Meds Allergies/Adverse Reactions: Allergies Allergy/AdvReac Type Severity Reaction Status Date / Time No Known Allergies Allergy Verified 09/14/18 19:46 - Medications Medications: Current Medications Albuterol/Ipratropium (Duoneb 3 Mg/0.5 Mg (3 Ml) Ud) 3 ml INH RQ6 PRN PRN Reason: Shortness of Breath Last Admin: 09/15/18 13:32 Dose: 3 ml Aspirin (Aspirin Chewable) 81 mg PO DAILY [facility] Last Admin: 09/15/18 11:00 Dose: 81 mg Cilostazol (Pletal) 100 mg PO Q12 [facility] Last Admin: 09/15/18 11:00 Dose: 100 mg Enoxaparin Sodium (Lovenox) 40 mg SC DAILY [facility] Last Admin: 09/15/18 11:00 Dose: 40 mg Famotidine (Pepcid) 20 mg PO DAILY [facility] Last Admin: 09/15/18 11:00 Dose: 20 mg Fluticasone Propionate (Flonase) 1 spr EMRE DAILY PRN PRN Reason: congestion Folic Acid (Folic Acid) 1 mg PO DAILY [facility] Last Admin: 09/15/18 11:00 Dose: 1 mg Furosemide (Lasix) 20 mg IVP BID [facility] Last Admin: 09/15/18 11:00 Dose: 20 mg Gabapentin (Neurontin) 400 mg PO TID [facility] Last Admin: 09/15/18 13:13 Dose: 400 mg Piperacillin Sod/Tazobactam (Sod 3.375 gm/ Sodium Chloride) 100 mls @ 200 mls/hr IVPB Q8H [facility]; Protocol Last Admin: 09/15/18 07:58 Dose: 200 mls/hr Ibuprofen (Motrin Tab) 800 mg PO Q8 PRN PRN Reason: Fever >100.4 F Influenza Virus Vaccine (Flucelvax Quad 3739-0644 Syr) 60 mcg IM .ONCE ONE Stop: 09/17/18 14:01 Lactulose (Enulose) 30 gm PO Q8 [facility] Last Admin: 09/15/18 13:25 Dose: 30 gm Morphine Sulfate (Morphine) 1 mg IVP Q6H PRN PRN Reason: pain Last Admin: 09/15/18 01:02 Dose: 1 mg Potassium Chloride (K-Dur 20 Meq Er Tab) 20 meq PO DAILY [facility] Last Admin: 09/15/18 11:00 Dose: 20 meq Rifaximin (Xifaxan) 550 mg PO BID [facility]; Protocol Physical Exam - Constitutional Appears: No Acute Distress, Confused, Chronically Ill - Head Exam Head Exam: ATRAUMATIC, NORMAL INSPECTION, NORMOCEPHALIC - Eye Exam Eye Exam: Scleral icterus - ENT Exam ENT Exam: Mucous Membranes Dry, Normal External Ear Exam, Normal Oropharynx - Neck Exam Neck exam: Negative for: Lymphadenopathy - Respiratory Exam Respiratory Exam: Decreased Breath Sounds, Prolonged Expiratory Phase, Rhonchi - Cardiovascular Exam Cardiovascular Exam: REGULAR RHYTHM, +S1, +S2 - GI/Abdominal Exam GI & Abdominal Exam: Diminished Bowel Sounds, Distended, Guarding, Soft, Tenderness. absent: Pulsatile Mass, Rebound, Rigid - Rectal Exam Rectal Exam: Deferred - Exam Exam: NORMAL INSPECTION - Extremities Exam Extremities exam: Positive for: pedal edema, tenderness. Negative for: calf tenderness, pedal pulses present - Back Exam Back exam: absent: CVA tenderness (L), CVA tenderness (R), paraspinal tenderness - Neurological Exam Neurological exam: Alert, Altered, CN II-XII Intact - Psychiatric Exam Psychiatric exam: Depressed Results - Vital Signs Recent Vital Signs: Last Vital Signs Temp 101 F H 09/15/18 15:20 Pulse 114 H 09/15/18 15:20 Resp 18 09/15/18 15:20 BP 108/69 09/15/18 15:20 Pulse Ox 99 09/15/18 15:20 - Labs Result Diagrams: 09/14/18 20:09 09/14/18 20:09 Labs: Laboratory Results - last 24 hr 09/14/18 09/14/18 09/14/18 20:09 20:09 20:09 WBC 7.3 D RBC 3.97 L Hgb 11.5 L Hct 34.3 L MCV 86.3 D MCH 29.0 MCHC 33.6 RDW 18.3 H Plt Count 132 MPV 8.1 Neut % (Auto) 92.2 H Lymph % (Auto) 7.0 L Elbert % (Auto) 0.3 Eos % (Auto) 0.3 Baso % (Auto) 0.2 Neut # (Auto) 6.7 Lymph # (Auto) 0.5 L Elbert # (Auto) 0.0 Eos # (Auto) 0.0 Baso # (Auto) 0.0 Neutrophils % (Manual) 83 H Band Neutrophils % 10 H Lymphocytes % (Manual) 5 L Monocytes % (Manual) 1 Myelocytes % 1 H Platelet Estimate Normal Large Platelets Present Anisocytosis (manual) Slight PT 20.8 H INR 1.9 APTT 33 D-Dimer, Quantitative pO2 VBG pH VBG pCO2 VBG HCO3 VBG Total CO2 VBG O2 Sat (Calc) VBG Base Excess VBG Potassium Glucose Lactate Crit Value Called To Crit Value Called By Crit Value Read Back Blood Gas Notified Time Sodium 130 L Potassium 3.0 L Chloride 97 L Carbon Dioxide 24 Anion Gap 11 BUN 22 H Creatinine 1.2 Est GFR ( Amer) > 60 Est GFR (Non-Af Amer) > 60 Random Glucose 96 Calcium 6.6 L Total Bilirubin 2.6 H AST 69 H ALT 21 D Alkaline Phosphatase 224 H D Ammonia Troponin I < 0.0120 NT-Pro-B Natriuret Pep Total Protein 8.5 H Albumin 2.7 L Globulin 5.7 H Albumin/Globulin Ratio 0.5 L Lipase Alpha Fetoprotein Carcinoembryonic Ag CA 19-9 Antigen Venous Blood Potassium Urine Color Urine Clarity Urine pH Ur Specific [place] Urine Protein Urine Glucose (UA) Urine Ketones Urine Blood Urine Nitrate Urine Bilirubin Urine Urobilinogen Ur Leukocyte Esterase Urine WBC (Auto) Urine RBC (Auto) Ur Squamous Epith Cells Urine Bacteria Hyaline Casts 09/14/18 09/14/18 09/14/18 20:09 20:37 20:37 WBC RBC Hgb Hct MCV MCH MCHC RDW Plt Count MPV Neut % (Auto) Lymph % (Auto) Elbert % (Auto) Eos % (Auto) Baso % (Auto) Neut # (Auto) Lymph # (Auto) Elbert # (Auto) Eos # (Auto) Baso # (Auto) Neutrophils % (Manual) Band Neutrophils % Lymphocytes % (Manual) Monocytes % (Manual) Myelocytes % Platelet Estimate Large Platelets Anisocytosis (manual) PT INR APTT D-Dimer, Quantitative 5146 H pO2 VBG pH VBG pCO2 VBG HCO3 VBG Total CO2 VBG O2 Sat (Calc) VBG Base Excess VBG Potassium Glucose Lactate Crit Value Called To Crit Value Called By Crit Value Read Back Blood Gas Notified Time Sodium Potassium Chloride Carbon Dioxide Anion Gap BUN Creatinine Est GFR ( Amer) Est GFR (Non-Af Amer) Random Glucose Calcium Total Bilirubin AST ALT Alkaline Phosphatase Ammonia 69 H Troponin I NT-Pro-B Natriuret Pep 369 Total Protein Albumin Globulin Albumin/Globulin Ratio Lipase 133 Alpha Fetoprotein Carcinoembryonic Ag CA 19-9 Antigen Venous Blood Potassium Urine Color Urine Clarity Urine pH Ur Specific [place] Urine Protein Urine Glucose (UA) Urine Ketones Urine Blood Urine Nitrate Urine Bilirubin Urine Urobilinogen Ur Leukocyte Esterase Urine WBC (Auto) Urine RBC (Auto) Ur Squamous Epith Cells Urine Bacteria Hyaline Casts 09/14/18 09/15/18 09/15/18 21:58 00:19 13:44 WBC RBC Hgb Hct MCV MCH MCHC RDW Plt Count MPV Neut % (Auto) Lymph % (Auto) Elbert % (Auto) Eos % (Auto) Baso % (Auto) Neut # (Auto) Lymph # (Auto) Elbert # (Auto) Eos # (Auto) Baso # (Auto) Neutrophils % (Manual) Band Neutrophils % Lymphocytes % (Manual) Monocytes % (Manual) Myelocytes % Platelet Estimate Large Platelets Anisocytosis (manual) PT INR APTT D-Dimer, Quantitative pO2 42 VBG pH 7.40 VBG pCO2 36 L VBG HCO3 22.8 VBG Total CO2 23.4 VBG O2 Sat (Calc) 82.6 H VBG Base Excess -2.0 L VBG Potassium 9.1 H* Glucose 74 L Lactate 1.9 Crit Value Called To Dr cooper Crit Value Called By Erwin arce Crit Value Read Back Y Blood Gas Notified Time 2200 Sodium 125.0 L Potassium Chloride 100.0 Carbon Dioxide Anion Gap BUN Creatinine Est GFR ( Amer) Est GFR (Non-Af Amer) Random Glucose Calcium Total Bilirubin AST ALT Alkaline Phosphatase Ammonia Troponin I NT-Pro-B Natriuret Pep Total Protein Albumin Globulin Albumin/Globulin Ratio Lipase Alpha Fetoprotein 1.6 Carcinoembryonic Ag CA 19-9 Antigen Venous Blood Potassium 9.1 H* Urine Color Aide Urine Clarity Clear Urine pH 5.0 Ur Specific [place] 1.014 Urine Protein 1+ H Urine Glucose (UA) Normal Urine Ketones Negative Urine Blood Negative Urine Nitrate Negative Urine Bilirubin Negative Urine Urobilinogen 4.0 Ur Leukocyte Esterase Neg Urine WBC (Auto) 6 H Urine RBC (Auto) < 1 Ur Squamous Epith Cells 2 Urine Bacteria Rare Hyaline Casts 3-5 H 09/15/18 13:44 WBC RBC Hgb Hct MCV MCH MCHC RDW Plt Count MPV Neut % (Auto) Lymph % (Auto) Elbert % (Auto) Eos % (Auto) Baso % (Auto) Neut # (Auto) Lymph # (Auto) Elbert # (Auto) Eos # (Auto) Baso # (Auto) Neutrophils % (Manual) Band Neutrophils % Lymphocytes % (Manual) Monocytes % (Manual) Myelocytes % Platelet Estimate Large Platelets Anisocytosis (manual) PT INR APTT D-Dimer, Quantitative pO2 VBG pH VBG pCO2 VBG HCO3 VBG Total CO2 VBG O2 Sat (Calc) VBG Base Excess VBG Potassium Glucose Lactate Crit Value Called To Crit Value Called By Crit Value Read Back Blood Gas Notified Time Sodium Potassium Chloride Carbon Dioxide Anion Gap BUN Creatinine Est GFR ( Amer) Est GFR (Non-Af Amer) Random Glucose Calcium Total Bilirubin AST ALT Alkaline Phosphatase Ammonia Troponin I NT-Pro-B Natriuret Pep Total Protein Albumin Globulin Albumin/Globulin Ratio Lipase Alpha Fetoprotein Carcinoembryonic Ag 2.7 CA 19-9 Antigen < 1.4 Venous Blood Potassium Urine Color Urine Clarity Urine pH Ur Specific [place] Urine Protein Urine Glucose (UA) Urine Ketones Urine Blood Urine Nitrate Urine Bilirubin Urine Urobilinogen Ur Leukocyte Esterase Urine WBC (Auto) Urine RBC (Auto) Ur Squamous Epith Cells Urine Bacteria Hyaline Casts Assessment & Plan (1) Dyspnea Status: Acute (2) Hyperammonemia Status: Acute (3) Hyperbilirubinemia Status: Acute (4) Hypokalemia Status: Acute (5) Venous stasis dermatitis of both lower extremities Status: Acute (6) History of alcohol abuse Status: Chronic (7) Abdominal pain Status: Acute (8) Acute hepatic encephalopathy Status: Acute (9) SBP (spontaneous bacterial peritonitis) Status: Acute (10) Cellulitis and abscess of leg Status: Acute (11) Sepsis Status: Acute - Assessment and Plan (Free Text) Assessment: Patient presents to the ER with a complaint of chest pain and back pain. He reports he recently flew back today from [place]. He is currently speaking incomplete sentences. . Patient has Hx of alcoholism, CHF, and end stage liver disease. full septic work up done IV antibiotics ordered for possible sepsis , r/o SBP, cellulitis legs, decompensated liver disease Prognosis guarded
[2018-09-15] MEDS: Vancomycin 1 gm/NS 200 ml 1 GM/200 ML BAG IVPB SCH (19:32)
[2018-09-15 21:10] LABS: INTRACELLULAR PARASITE NEGATIVE (NEGATIVE)
[2018-09-16] MEDS: Piperacillin/Tazobact 3.375 GM in Sodium Chloride 100 ML IVPB SCH ×3 (00:37→17:20)
[2018-09-16] MEDS: Albuterol-Ipratrop 3 mg / 0.5 (3 ml) UD INH PRN ×2 (02:03→19:45)
[2018-09-16 07:40] LABS: EOS # 0.1 K/uL (0.0-0.7); EOS % 1.3 % (0.0-4.0); NEUT # 4.9 K/uL (1.8-7.0); WHITE BLOOD COUNT 7.2 K/uL (4.8-10.8)
[2018-09-16 07:50] LABS: BASO % 0.4 % (0.0-2.0); LYMPH % 13.9 % (20.0-40.0); MEAN CELL VOLUME 87.3 fL (80.0-94.0); MEAN CORPUSCULAR HEMOGLOBIN 29.3 pg (27.0-31.0); MEAN CORPUSCULAR HGB CONC 33.6 g/dL (33.0-37.0); MEAN PLATELET VOLUME 8.5 fL (7.2-11.7); MONO # 1.1 K/uL (0.0-0.8); MONO % 15.8 % (0.0-10.0); NEUT % 68.6 % (50.0-75.0); RBC 3.16 Mil/uL (4.40-5.90); RED CELL DISTRIBUTION WIDTH 17.8 % (11.5-14.5)
[2018-09-16 07:55] LABS: ALB/GLOB RATIO 0.4 (1.0-2.1); ALBUMIN 2.2 g/dL (3.5-5.0); ALT/SGPT 18 U/L (21-72); AST/SGOT 44 U/L (17-59); BLOOD UREA NITROGEN 16 mg/dL (9-20); CALCIUM 6.3 mg/dl (8.6-10.4); GFR NON-AFRICAN AMERICAN > 60; HEMOGLOBIN 9.3 g/dL (12.0-18.0)
[2018-09-16 08:19] LABS: HEPATITIS B SURFACE AG Negative (NEGATIVE)
[2018-09-16 08:24] LABS: HEPATITIS A IGM NEGATIVE (NEGATIVE); HEPATITIS B CORE AB NEGATIVE (NEGATIVE)
[2018-09-16] MEDS ORDERED: Potassium Chloride 20 mEq ER Tab PO ONE (10:00)
[2018-09-16] MEDS: Cilostazol 100 mg Tab UD PO SCH ×2 (10:06→21:52)
[2018-09-16] MEDS: Potassium Chloride 20 mEq ER Tab PO SCH (10:06)
[2018-09-16] MEDS: Enoxaparin 40 mg Syringe SC SCH (10:07)
[2018-09-16 10:11] LABS: HEPATITIS C ANTIBODY NEGATIVE (NEGATIVE)
[2018-09-16] MEDS: Magnesium Sulfate 1 gm in D5W 1 GM/100 ML BAG IVPB SCH ×2 (11:08→12:37)
--- NOTE | 2018-09-16 15:45 | US ---
Date of service: 09/15/2018 HISTORY: Rule out ascites COMPARISON: Comparison made with abdominal ultrasound 09/06/2017. Comparison also made with prior triple phase CT scan of the liver dated 02/08/2017 TECHNIQUE: Sonographic evaluation of the abdomen. FINDINGS: LIVER: Measures 11.7 cm. Nodular surface contour and increased echotexture consistent hepatic cirrhosis best demonstrated on prior CT scan of the liver... No mass. No intrahepatic bile duct dilatation. Apparent bidirectional flow within the portal vein. Clinical correlation with GALLBLADDER: Unremarkable. No gallstones. No evidence of pericholecystic fluid collections. No reported Hernandez sign. COMMON BILE DUCT: Measures 7.9 mm. No stones. No dilatation. PANCREAS: Pancreas poorly delineated due to body habitus and bowel gas. RIGHT KIDNEY: Measures 11.7 x 7.3 x 5.4cm. Normal echogenicity. No calculus, mass, or hydronephrosis. LEFT KIDNEY: Measures 12.7 x 5.0 x 5.2cm. Normal echogenicity. No calculus, mass, or hydronephrosis. SPLEEN: Enlarged measuring approximately 16 x 5.6 x 5.6 cm.. No obvious splenic masses collections or calcifications. AORTA: No aneurysmal dilatation. IVC: Unremarkable. OTHER FINDINGS: None. IMPRESSION: Hepatic cirrhosis with of bidirectional flow in the portal vein. Splenomegaly. No evidence of cholelithiasis however common bile duct is mildly dilated measuring 7.9 mm Very poor delineation of the pancreas due to body habitus and bowel gas.
--- NOTE | 2018-09-16 16:47 | CP.PCM.PN ---
Subjective - Date & Time of Evaluation Date of Evaluation: 09/16/18 Time of Evaluation: 16:46 Objective - Vital Signs/Intake and Output Vital Signs (last 24 hours): Temp Pulse Resp BP Pulse Ox 98.4 F 92 H 20 98/61 L 100 09/16/18 07:00 09/16/18 15:54 09/16/18 07:00 09/16/18 10:06 09/16/18 07:00 Intake and Output: 09/16/18 09/16/18 06:59 18:59 Intake Total 1010 Output Total 800 Balance 210 - Medications Medications: Current Medications Albuterol/Ipratropium (Duoneb 3 Mg/0.5 Mg (3 Ml) Ud) 3 ml INH RQ6 PRN PRN Reason: Shortness of Breath Last Admin: 09/16/18 02:03 Dose: 3 ml Aspirin (Aspirin Chewable) 81 mg PO DAILY [facility] Last Admin: 09/16/18 10:06 Dose: 81 mg Cilostazol (Pletal) 100 mg PO Q12 [facility] Last Admin: 09/16/18 10:06 Dose: 100 mg Enoxaparin Sodium (Lovenox) 40 mg SC DAILY [facility] Last Admin: 09/16/18 10:07 Dose: 40 mg Famotidine (Pepcid) 20 mg PO DAILY [facility] Last Admin: 09/16/18 10:06 Dose: 20 mg Fluticasone Propionate (Flonase) 1 spr EMRE DAILY PRN PRN Reason: congestion Folic Acid (Folic Acid) 1 mg PO DAILY [facility] Last Admin: 09/16/18 10:06 Dose: 1 mg Furosemide (Lasix) 20 mg IVP BID [facility] Last Admin: 09/16/18 10:06 Dose: 20 mg Gabapentin (Neurontin) 400 mg PO TID [facility] Last Admin: 09/16/18 14:57 Dose: 400 mg Piperacillin Sod/Tazobactam (Sod 3.375 gm/ Sodium Chloride) 100 mls @ 200 mls/hr IVPB Q8H [facility]; Protocol Last Admin: 09/16/18 08:32 Dose: 200 mls/hr Vancomycin/Sodium Chloride (Vancomycin 1 Gm/Ns 200 Ml) 1 gm in 200 mls @ 133 mls/hr IVPB Q24H [facility]; Protocol Stop: 09/20/18 19:01 Last Admin: 09/15/18 19:32 Dose: 133 mls/hr Ibuprofen (Motrin Tab) 800 mg PO Q8 PRN PRN Reason: Fever >100.4 F Influenza Virus Vaccine (Flucelvax Quad [id number] Syr) 60 mcg IM .ONCE ONE Stop: 09/17/18 14:01 Lactulose (Enulose) 30 gm PO Q8 [facility] Last Admin: 09/16/18 14:57 Dose: 30 gm Morphine Sulfate (Morphine) 1 mg IVP Q6H PRN PRN Reason: pain Last Admin: 09/15/18 01:02 Dose: 1 mg Potassium Chloride (K-Dur 20 Meq Er Tab) 20 meq PO DAILY [facility] Last Admin: 09/16/18 10:06 Dose: 20 meq Rifaximin (Xifaxan) 550 mg PO BID [facility]; Protocol Last Admin: 09/16/18 10:06 Dose: 550 mg - Labs Labs: 09/16/18 07:19 09/16/18 07:19 PT 20.8 SECONDS (9.7-12.2) H 09/14/18 20:09 INR 1.9 09/14/18 20:09 APTT 33 SECONDS (21-34) 09/14/18 20:09
[2018-09-16] MEDS: Vancomycin 1 gm/NS 200 ml 1 GM/200 ML BAG IVPB SCH (18:56)
[2018-09-17] MEDS: Piperacillin/Tazobact 3.375 GM in Sodium Chloride 100 ML IVPB SCH ×2 (00:04→08:26)
[2018-09-17 09:18] LABS: BLOOD UREA NITROGEN 9 mg/dL (9-20); CALCIUM 6.6 mg/dl (8.6-10.4); GFR NON-AFRICAN AMERICAN > 60
[2018-09-17] MEDS ORDERED: Potassium Chloride 20 mEq ER Tab PO ONE (10:02)
[2018-09-17] MEDS: Magnesium Sulfate 1 gm in D5W 1 GM/100 ML BAG IVPB SCH ×4 (10:18→18:01)
[2018-09-17] MEDS: Enoxaparin 40 mg Syringe SC SCH (10:19)
[2018-09-17] MEDS: Potassium Chloride 20 mEq ER Tab PO SCH (10:19)
[2018-09-17] MEDS: Cilostazol 100 mg Tab UD PO SCH ×2 (10:19→21:21)
--- NOTE | 2018-09-17 12:28 | CP.PCM.CON ---
History of Present Illness - History of Present Illness History of Present Illness: I was asked to see patient by Dr Liu. Patient seen 09/17/18 1200 Patient is a 47 year old male with HTN, alcoholic cirrhosis, who presents with leg pain, nausea vomiting. The patient had a recent trip to the [facility], developed back pain. leg pain. He was dyspneic, and found to be tachycardic. He is in atrial firillation. Blood cultures are positive. Review of Systems - Constitutional Constitutional: Fever, Lethargy, Weakness - EENT Eyes: absent: As Per HPI, Blind Spots, Blurred Vision, Change in Vision, Decreased Night Vision, Diplopia, Discharge, Dry Eye, Exophthalmos, Floaters, Irritation, Itchy Eyes, Loss of Peripheral Vision, Pain, Photophobia, Requires Corrective Lenses, Sees Flashes, Spots in Vision, Tunnel Vision, Other Visual Disturbances, Loss of Vision, Other Ears: absent: As Per HPI, Decreased Hearing, Ear Discharge, Ear Pain, Tinnitus, Abnormal Hearing, Disequilibrium, Dizziness, Other Nose/Mouth/Throat: absent: As Per HPI, Epistaxis, Nasal Congestion, Nasal Discharge, Nasal Obstruction, Nasal Trauma, Nose Pain, Post Nasal Drip, Sinus Pain, Sinus Pressure, Bleeding Gums, Change in Voice, Dental Pain, Dry Mouth, Dysphagia, Halitosis, Hoarsness, Lip Swelling, Mouth Lesions, Mouth Pain, Odynophagia, Sore Throat, Throat Swelling, Tongue Swelling, Facial Pain, Neck Pain, Neck Mass, Other - Cardiovascular Cardiovascular: Dyspnea - Respiratory Respiratory: Dyspnea - Gastrointestinal Gastrointestinal: Vomiting - Genitourinary Genitourinary: absent: As Per HPI, Change in Urinary Stream, Difficulty Urinating, Dysuria, Flank Pain, Hematuria, Pyuria, Nocturia, Urinary Incontin ence, Urinary Frequency, Urinary Hesitance, Urinary Urgency, Voiding Freq/Small Amts, Freq UTI, Hx Renal/Bladder Calculi, Hx /Renal Surgery, Bladder Distension, Other - Musculoskeletal Musculoskeletal: absent: As Per HPI, Abnormal Gait, Arthralgias, Atrophy, Back Pain, Deformity, Joint Swelling, Limited Range of Motion, Loss of Height, Muscle Cramps, Muscle Weakness, Myalgias, Neck Pain, Numbness, Radiating Pain into Limb, Stiffness, Tingling, Other - Integumentary Integumentary: absent: As Per HPI, Acne, Alopecia, Bleeding Lesions, Change in Hair, Change in Nails, Change in Pigmentation, Changing Lesions, Dry Skin, Erythema, Furuncle, Hirsutism, Lesions, New Lesions, Non-Healing Lesions, Photosensitivity, Pruritus, Rash, Skin Pain, Skin Ulcer, Sores, Striae, Swelling, Unusual Bruising, Wounds, Jaundice, Other - Neurological Neurological: absent: As Per HPI, Abnormal Gait, Abnormal Hearing, Abnormal Movements, Abnormal Speech, Behavioral Changes, Burning Sensations, Confusion, Convulsions, Disequilibrium, Dizziness, Numbness, Focal Weakness, Frequent Falls, Headaches, Lack of Coordination, Loss of Vision, Memory Loss, Paresthesias, Radicular Pain, Restless Legs, Sensory Deficit, Syncope, Tingling, Tremor, Vertigo, Weakness, Other Visual Disturbances, Other - Psychiatric Psychiatric: absent: As Per HPI, Abnormal Sleep Pattern, Anhedonia, Anxiety, Auditory Hallucinations, Behavioral Changes, Change in Appetite, Change in Libido, Confusion, Depression, Difficulty Concentrating, Hallucinations, Homicidal Ideation, Hopelessness, Irritability, Memory Loss, Mood Swings, Panic Attacks, Paranoia, Suicidal Ideation, Visual Hallucinations, Tactile Hallucinations, Other - Endocrine Endocrine: absent: As Per HPI, Change in Body Appearance, Change in Libido, Cold Intolorance, Deepening of Voice, Excessive Sweating, Fatigue, Flushing, Heat Intolorance, Increase in Ring/Shoe/Hat Size, Palpitations, Polydipsia, Polyphagia, Polyuria, Other - Hematologic/Lymphatic Hematologic: absent: As Per HPI, Easy Bleeding, Easy Bruising, Lymphadenopathy, Other Past Patient History - Infectious Disease Hx of Infectious Diseases: None - Tetanus Immunizations Tetanus Immunization: Unknown - Past Medical History & Family History Past Medical History?: Yes - Past Social History Smoking Status: Former Smoker - CARDIAC Hx Congestive Heart Failure: Yes - PULMONARY Hx Chronic Obstructive Pulmonary Disease (COPD): Yes - NEUROLOGICAL Hx Neurological Disorder: No Hx Seizures: No - HEENT Hx HEENT Problems: No - RENAL Hx Chronic Kidney Disease: No - ENDOCRINE/METABOLIC Hx Endocrine Disorders: No - HEMATOLOGICAL/ONCOLOGICAL Hx Blood Disorders: No Hx Human Immunodeficiency Virus (HIV): No - INTEGUMENTARY Hx Dermatological Problems: No - MUSCULOSKELETAL/RHEUMATOLOGICAL Hx Arthritis: Yes - GASTROINTESTINAL Hx Gastrointestinal Disorders: Yes Hx Gall Bladder Disease: Yes - GENITOURINARY/GYNECOLOGICAL Hx Genitourinary Disorders: No Hx Sexually Transmitted Disorders: No - PSYCHIATRIC Hx Psychophysiologic Disorder: Yes Hx Anxiety: Yes Hx Bipolar Disorder: No Hx Depression: No Hx Schizophrenia: No Hx Substance Use: No - SURGICAL HISTORY Hx Surgeries: Yes Hx Appendectomy: Yes Hx Cholecystectomy: Yes Hx Coronary Artery Bypass Graft: No Hx Coronary Stent: No Hx Tonsillectomy: No - ANESTHESIA Hx Anesthesia: Yes Hx Anesthesia Reactions: No Hx Malignant Hyperthermia: No Meds Allergies/Adverse Reactions: Allergies Allergy/AdvReac Type Severity Reaction Status Date / Time No Known Allergies Allergy Verified 09/14/18 19:46 - Medications Medications: Current Medications Albuterol/Ipratropium (Duoneb 3 Mg/0.5 Mg (3 Ml) Ud) 3 ml INH RQ6 PRN PRN Reason: Shortness of Breath Last Admin: 09/16/18 19:45 Dose: 3 ml Aspirin (Aspirin Chewable) 81 mg PO DAILY [facility]S [facility]CLUDE 234 BEDS AT THE [facility] Last Admin: 09/17/18 10:19 Dose: 81 mg Cilostazol (Pletal) 100 mg PO Q12 COUNTS INCLUDE 234 BEDS AT THE [facility] Last Admin: 09/17/18 10:19 Dose: 100 mg Enoxaparin Sodium (Lovenox) 40 mg SC DAILY COUNTS INCLUDE 234 BEDS AT THE [facility] Last Admin: 09/17/18 10:19 Dose: 40 mg Famotidine (Pepcid) 20 mg PO DAILY [facility]S [facility]CLUDE 234 BEDS AT THE [facility] Last Admin: 09/17/18 10:19 Dose: 20 mg Fluticasone Propionate (Flonase) 1 spr EMRE DAILY PRN PRN Reason: congestion Folic Acid (Folic Acid) 1 mg PO DAILY [facility]S [facility]CLUDE 234 BEDS AT THE [facility] Last Admin: 09/17/18 10:19 Dose: 1 mg Furosemide (Lasix) 20 mg IVP BID COUNTS INCLUDE 234 BEDS AT THE [facility] Last Admin: 09/17/18 10:19 Dose: 20 mg Gabapentin (Neurontin) 400 mg PO TID COUNTS INCLUDE 234 BEDS AT THE [facility] Last Admin: 09/17/18 10:19 Dose: 400 mg Vancomycin/Sodium Chloride (Vancomycin 1 Gm/Ns 200 Ml) 1 gm in 200 mls @ 133 mls/hr IVPB Q24H COUNTS INCLUDE 234 BEDS AT THE [facility]; Protocol Stop: 09/20/18 19:01 Last Admin: 09/16/18 18:56 Dose: 133 mls/hr Potassium Chloride (Potassium Chloride 10 Meq/100 Ml) 10 meq in 100 mls @ 50 mls/hr IVPB Q2H [facility] Stop: 09/17/18 18:14 Last Admin: 09/17/18 10:18 Dose: 50 mls/hr Magnesium Sulfate/Dextrose (Magnesium Sulfate 1 Gm/100 Ml D5w) 1 gm in 100 mls @ 100 mls/hr IVPB Q1H COUNTS INCLUDE 234 BEDS AT THE [facility] Stop: 09/17/18 19:59 Ibuprofen (Motrin Tab) 800 mg PO Q8 PRN PRN Reason: Fever >100.4 F Influenza Virus Vaccine (Flucelvax Quad 4203-6148 Syr) 60 mcg IM .ONCE ONE Stop: 09/17/18 14:01 Lactulose (Enulose) 30 gm PO Q8 COUNTS INCLUDE 234 BEDS AT THE [facility] Last Admin: 09/17/18 06:16 Dose: 30 gm Morphine Sulfate (Morphine) 1 mg IVP Q6H PRN PRN Reason: pain Neomycin Sulfate (Neomycin Tab) 500 mg PO Q6H COUNTS INCLUDE 234 BEDS AT THE [facility] Stop: 09/22/18 09:01 Last Admin: 09/17/18 10:18 Dose: 500 mg Potassium Chloride (K-Dur 20 Meq Er Tab) 20 meq PO DAILY COUNTS INCLUDE 234 BEDS AT THE [facility] Last Admin: 09/17/18 10:19 Dose: 20 meq Rifaximin (Xifaxan) 550 mg PO BID COUNTS INCLUDE 234 BEDS AT THE [facility]; Protocol Last Admin: 09/17/18 10:19 Dose: 550 mg Physical Exam - Constitutional Appears: Chronically Ill - Head Exam Head Exam: NORMAL INSPECTION - Eye Exam Eye Exam: Normal appearance - ENT Exam ENT Exam: Mucous Membranes Dry - Neck Exam Neck exam: Positive for: Normal Inspection - Respiratory Exam Respiratory Exam: Decreased Breath Sounds - Cardiovascular Exam Cardiovascular Exam: Tachycardia, Irregular Rhythm - GI/Abdominal Exam GI & Abdominal Exam: Normal Bowel Sounds - Rectal Exam Rectal Exam: Deferred - Extremities Exam Extremities exam: Positive for: pedal edema - Back Exam Back exam: NORMAL INSPECTION - Neurological Exam Neurological exam: Alert, Oriented x3 - Psychiatric Exam Psychiatric exam: Normal Affect - Skin Skin Exam: Normal Color Results - Vital Signs Recent Vital Signs: Last Vital Signs Temp 98.8 F 09/17/18 07:00 Pulse 121 H 09/17/18 07:00 Resp 20 09/17/18 07:00 BP 110/68 09/17/18 10:19 Pulse Ox 98 09/17/18 07:00 - Labs Result Diagrams: 09/16/18 07:19 09/17/18 08:42 Labs: Laboratory Results - last 24 hr 01/09/17/18 09/17/18 07:19 08:42 08:42 WBC 7.2 RBC 3.16 L Hgb 9.3 L D Hct 27.6 L MCV 87.3 MCH 29.3 MCHC 33.6 RDW 17.8 H Plt Count 114 L MPV 8.5 Neut % (Auto) 68.6 Lymph % (Auto) 13.9 L [place] % (Auto) 15.8 H Eos % (Auto) 1.3 Baso % (Auto) 0.4 Neut # (Auto) 4.9 Lymph # (Auto) 1.0 [place] # (Auto) 1.1 H Eos # (Auto) 0.1 Baso # (Auto) 0.0 Differential Comment Sodium 134 Potassium 2.8 L Chloride 99 Carbon Dioxide 27 Anion Gap 10 BUN 9 Creatinine 0.7 L Est GFR ( Amer) > 60 Est GFR (Non-Af Amer) > 60 Random Glucose 88 D Calcium 6.6 L Magnesium 0.8 L* Ammonia 36 H D - EKG Data EKG Interpreted by: Myself Assessment & Plan (1) Atrial fibrillation Assessment and Plan: no previous atrial fibrillation. will use rate control with cardizem. The patient is at high risk of bleeding given liver failure and cirrhosis therefore would avoid oral anticaogulation. Status: Acute (2) Hypertension Assessment and Plan: cardizem therapy Status: Chronic
--- NOTE | 2018-09-17 12:52 | PN ---
DATE: 09/17/2018 LOCATION: 662, bed A. SUBJECTIVE: This 47-year-old male seen and examined early in rounds today. He denies any significant abdominal pain, no chest pain or palpitations, with reported atrial fibrillation and atrial flutter, had flutter before. No reported active bleeding. The entire chart is reviewed including but not limited to the most recent lab and radiology study results, current and the previous medication list, current and previous medical events. Today's lab results still pending. However, the patient had low hemoglobin and hematocrit with thrombocytopenia with electrolyte imbalance as per yesterday's lab results, but normal cancer markers with albumin 2.2 and ammonia level 78. PHYSICAL EXAMINATION: GENERAL: A 47-year-old male, awake, alert and oriented. VITAL SIGNS: Afebrile with heart rate of 118, respiratory rate 20 to 22, blood pressure 110/64. HEENT: Showed pale dry oral mucoid membrane. Slight icteric sclerae bilaterally. HEART: Positive S1 and S2. ABDOMEN: Soft with mild generalized tenderness. No mass or organomegaly. No rebound tenderness or guarding. Mild abdominal distention noted. EXTREMITIES: Mild lower extremity edematous changes. No clubbing or cyanosis. NEUROLOGIC: No reported new neurological deficits, sensory or motor. IMPRESSION: 1. Alcoholism with alcoholic liver disease and abnormal liver function tests. 2. Jaundice, secondary to above. 3. Multiple past medical history including bipolar disorder, hypertension, congestive heart failure, chronic obstructive pulmonary disease, depression and hypertension as well as reported schizophrenia. 4. Reported atrial fibrillation and atrial flutter, by history, recent and old. SUGGESTIONS: 1. Agree with your plan. 2. Neomycin p.o. and to repeat ammonia level due to the patient's underlying diagnosis of hepatic encephalopathy. 3. Guaiac all the stools everyday x3. 4. Pantop 10 mg one tablet twice a day. 5. Further recommendation to follow and psychiatric evaluation to be ordered. Mayuri Ordonez MD
--- NOTE | 2018-09-17 13:03 | CP.PCM.PN ---
Subjective - Date & Time of Evaluation Date of Evaluation: 09/17/18 Time of Evaluation: 13:03 Objective - Vital Signs/Intake and Output Vital Signs (last 24 hours): Temp Pulse Resp BP Pulse Ox 98.8 F 121 H 20 110/68 98 09/17/18 07:00 09/17/18 07:00 09/17/18 07:00 09/17/18 10:19 09/17/18 07:00 Intake and Output: 09/17/18 09/17/18 06:59 18:59 Intake Total 340 Output Total 200 Balance -200 340 - Medications Medications: Current Medications Albuterol/Ipratropium (Duoneb 3 Mg/0.5 Mg (3 Ml) Ud) 3 ml INH RQ6 PRN PRN Reason: Shortness of Breath Last Admin: 09/16/18 19:45 Dose: 3 ml Aspirin (Aspirin Chewable) 81 mg PO DAILY [facility] Last Admin: 09/17/18 10:19 Dose: 81 mg Cilostazol (Pletal) 100 mg PO Q12 [facility] Last Admin: 09/17/18 10:19 Dose: 100 mg Diltiazem HCl (Cardizem) 60 mg PO QID [facility] Last Admin: 09/17/18 12:40 Dose: 60 mg Enoxaparin Sodium (Lovenox) 40 mg SC DAILY [facility] Last Admin: 09/17/18 10:19 Dose: 40 mg Famotidine (Pepcid) 20 mg PO DAILY [facility] Last Admin: 09/17/18 10:19 Dose: 20 mg Fluticasone Propionate (Flonase) 1 spr EMRE DAILY PRN PRN Reason: congestion Folic Acid (Folic Acid) 1 mg PO DAILY [facility] Last Admin: 09/17/18 10:19 Dose: 1 mg Furosemide (Lasix) 20 mg IVP BID [facility] Last Admin: 09/17/18 10:19 Dose: 20 mg Gabapentin (Neurontin) 400 mg PO TID [facility] Last Admin: 09/17/18 10:19 Dose: 400 mg Vancomycin/Sodium Chloride (Vancomycin 1 Gm/Ns 200 Ml) 1 gm in 200 mls @ 133 mls/hr IVPB Q24H [facility]; Protocol Stop: 09/20/18 19:01 Last Admin: 09/16/18 18:56 Dose: 133 mls/hr Potassium Chloride (Potassium Chloride 10 Meq/100 Ml) 10 meq in 100 mls @ 50 mls/hr IVPB Q2H [facility] Stop: 09/17/18 18:14 Last Admin: 09/17/18 12:39 Dose: 50 mls/hr Magnesium Sulfate/Dextrose (Magnesium Sulfate 1 Gm/100 Ml D5w) 1 gm in 100 mls @ 100 mls/hr IVPB Q1H [facility] Stop: 09/17/18 19:59 Ibuprofen (Motrin Tab) 800 mg PO Q8 PRN PRN Reason: Fever >100.4 F Influenza Virus Vaccine (Flucelvax Quad 7830-3866 Syr) 60 mcg IM .ONCE ONE Stop: 09/17/18 14:01 Lactulose (Enulose) 30 gm PO Q8 [facility] Last Admin: 09/17/18 06:16 Dose: 30 gm Morphine Sulfate (Morphine) 1 mg IVP Q6H PRN PRN Reason: pain Neomycin Sulfate (Neomycin Tab) 500 mg PO Q6H [facility] Stop: 09/22/18 09:01 Last Admin: 09/17/18 10:18 Dose: 500 mg Potassium Chloride (K-Dur 20 Meq Er Tab) 20 meq PO DAILY [facility] Last Admin: 09/17/18 10:19 Dose: 20 meq Rifaximin (Xifaxan) 550 mg PO BID [facility]; Protocol Last Admin: 09/17/18 10:19 Dose: 550 mg - Labs Labs: 09/16/18 07:19 09/17/18 08:42 PT 20.8 SECONDS (9.7-12.2) H 09/14/18 20:09 INR 1.9 09/14/18 20:09 APTT 33 SECONDS (21-34) 09/14/18 20:09
[2018-09-17] MEDS ORDERED: Influenza Vaccine 60 mcg/0.5 mL SYR (4YR UP) IM ONE (14:00)
[2018-09-17] MEDS ORDERED: Pneumococcal 23-Valent Vaccine IM ONE (14:00)
--- NOTE | 2018-09-17 17:14 | CP.PCM.PN ---
Subjective - Date & Time of Evaluation Date of Evaluation: 09/17/18 Time of Evaluation: 08:00 - Subjective Subjective: more alert less fever less congested no chest pain belly less distended Objective - Vital Signs/Intake and Output Vital Signs (last 24 hours): Temp Pulse Resp BP Pulse Ox 98.8 F 121 H 20 110/68 98 09/17/18 07:00 09/17/18 07:00 09/17/18 07:00 09/17/18 10:19 09/17/18 07:00 Intake and Output: 09/17/18 09/17/18 06:59 18:59 Intake Total 340 Output Total 200 Balance -200 340 - Medications Medications: Current Medications Albuterol/Ipratropium (Duoneb 3 Mg/0.5 Mg (3 Ml) Ud) 3 ml INH RQ6 PRN PRN Reason: Shortness of Breath Last Admin: 09/16/18 19:45 Dose: 3 ml Aspirin (Aspirin Chewable) 81 mg PO DAILY [facility] Last Admin: 09/17/18 10:19 Dose: 81 mg Cilostazol (Pletal) 100 mg PO Q12 [facility] Last Admin: 09/17/18 10:19 Dose: 100 mg Diltiazem HCl (Cardizem) 60 mg PO QID [facility] Last Admin: 09/17/18 14:37 Dose: 60 mg Enoxaparin Sodium (Lovenox) 40 mg SC DAILY [facility] Last Admin: 09/17/18 10:19 Dose: 40 mg Famotidine (Pepcid) 20 mg PO DAILY [facility] Last Admin: 09/17/18 10:19 Dose: 20 mg Fluticasone Propionate (Flonase) 1 spr EMRE DAILY PRN PRN Reason: congestion Folic Acid (Folic Acid) 1 mg PO DAILY [facility] Last Admin: 09/17/18 10:19 Dose: 1 mg Furosemide (Lasix) 20 mg IVP BID [facility] Last Admin: 09/17/18 10:19 Dose: 20 mg Gabapentin (Neurontin) 400 mg PO TID [facility] Last Admin: 09/17/18 14:37 Dose: 400 mg Vancomycin/Sodium Chloride (Vancomycin 1 Gm/Ns 200 Ml) 1 gm in 200 mls @ 133 mls/hr IVPB Q24H [facility]; Protocol Stop: 09/20/18 19:01 Last Admin: 09/16/18 18:56 Dose: 133 mls/hr Potassium Chloride (Potassium Chloride 10 Meq/100 Ml) 10 meq in 100 mls @ 50 mls/hr IVPB Q2H [facility] Stop: 09/17/18 18:14 Last Admin: 09/17/18 14:37 Dose: 50 mls/hr Magnesium Sulfate/Dextrose (Magnesium Sulfate 1 Gm/100 Ml D5w) 1 gm in 100 mls @ 100 mls/hr IVPB Q1H [facility] Stop: 09/17/18 19:59 Ibuprofen (Motrin Tab) 800 mg PO Q8 PRN PRN Reason: Fever >100.4 F Lactulose (Enulose) 30 gm PO Q8 [facility] Last Admin: 09/17/18 14:37 Dose: 30 gm Morphine Sulfate (Morphine) 1 mg IVP Q6H PRN PRN Reason: pain Neomycin Sulfate (Neomycin Tab) 500 mg PO Q6H [facility] Stop: 09/22/18 09:01 Last Admin: 09/17/18 14:37 Dose: 500 mg Potassium Chloride (K-Dur 20 Meq Er Tab) 20 meq PO DAILY [facility] Last Admin: 09/17/18 10:19 Dose: 20 meq Rifaximin (Xifaxan) 550 mg PO BID [facility]; Protocol Last Admin: 09/17/18 10:19 Dose: 550 mg - Labs Labs: 09/16/18 07:19 09/17/18 08:42 PT 20.8 SECONDS (9.7-12.2) H 09/14/18 20:09 INR 1.9 09/14/18 20:09 APTT 33 SECONDS (21-34) 09/14/18 20:09 - Constitutional Appears: Non-toxic, Chronically Ill - Head Exam Head Exam: NORMOCEPHALIC - Eye Exam Eye Exam: absent: Scleral icterus - ENT Exam ENT Exam: Mucous Membranes Dry - Neck Exam Neck Exam: absent: Lymphadenopathy - Respiratory Exam Respiratory Exam: Decreased Breath Sounds, Prolonged Expiratory Phase, Rhonchi - Cardiovascular Exam Cardiovascular Exam: REGULAR RHYTHM, +S1, +S2 - GI/Abdominal Exam GI & Abdominal Exam: Distended, Soft. absent: Tenderness - Rectal Exam Rectal Exam: Deferred - Exam Exam: NORMAL INSPECTION - Extremities Exam Extremities Exam: Pedal Edema, Tenderness. absent: Calf Tenderness, Normal Capillary Refill - Back Exam Back Exam: absent: CVA tenderness (L), CVA tenderness (R), paraspinal tenderness - Neurological Exam Neurological Exam: Alert, Awake, CN II-XII Intact, Oriented x3 - Psychiatric Exam Psychiatric exam: Depressed - Skin Skin Exam: Dry Assessment and Plan (1) Dyspnea Status: Acute (2) Hyperammonemia Status: Acute (3) Hyperbilirubinemia Status: Acute (4) Hypokalemia Status: Acute (5) Venous stasis dermatitis of both lower extremities Status: Acute (6) History of alcohol abuse Status: Chronic (7) Abdominal pain Status: Acute (8) Acute hepatic encephalopathy Status: Acute (9) SBP (spontaneous bacterial peritonitis) Status: Acute (10) Cellulitis and abscess of leg Status: Acute (11) Sepsis Status: Acute (12) Bacteremia Status: Acute - Assessment and Plan (Free Text) Assessment: consider Echo/ IAN await repeat cultures cont IV antibiotics min 14 days
[2018-09-17] MEDS ORDERED: Magnesium Sulfate 1 gm in D5W 1 GM/100 ML BAG IVPB ONE (18:30)
[2018-09-17] MEDS: Vancomycin 1 gm/NS 200 ml 1 GM/200 ML BAG IVPB SCH (19:21)
[2018-09-17] MEDS: Morphine 4 MG/ML VIAL IVP PRN (22:08)
--- NOTE | 2018-09-18 08:02 | CP.PCM.PN ---
Subjective - Date & Time of Evaluation Date of Evaluation: 09/18/18 Time of Evaluation: 08:00 - Subjective Subjective: patient has less dyspnea Objective - Vital Signs/Intake and Output Vital Signs (last 24 hours): Temp Pulse Resp BP Pulse Ox 98.2 F 108 H 20 106/58 L 95 09/18/18 04:21 09/18/18 07:30 09/18/18 04:21 09/18/18 04:21 09/18/18 04:21 Intake and Output: 09/18/18 09/18/18 06:59 18:59 Intake Total 900 Output Total 800 Balance 100 - Medications Medications: Current Medications Albuterol/Ipratropium (Duoneb 3 Mg/0.5 Mg (3 Ml) Ud) 3 ml INH RQ6 PRN PRN Reason: Shortness of Breath Last Admin: 09/16/18 19:45 Dose: 3 ml Aspirin (Aspirin Chewable) 81 mg PO DAILY [facility] Last Admin: 09/17/18 10:19 Dose: 81 mg Cilostazol (Pletal) 100 mg PO Q12 [facility] Last Admin: 09/17/18 21:21 Dose: 100 mg Diltiazem HCl (Cardizem) 60 mg PO QID [facility] Last Admin: 09/17/18 21:21 Dose: 60 mg Enoxaparin Sodium (Lovenox) 40 mg SC DAILY [facility] Last Admin: 09/17/18 10:19 Dose: 40 mg Famotidine (Pepcid) 20 mg PO DAILY [facility] Last Admin: 09/17/18 10:19 Dose: 20 mg Fluticasone Propionate (Flonase) 1 spr EMRE DAILY PRN PRN Reason: congestion Folic Acid (Folic Acid) 1 mg PO DAILY [facility] Last Admin: 09/17/18 10:19 Dose: 1 mg Furosemide (Lasix) 20 mg IVP BID [facility] Last Admin: 09/17/18 17:59 Dose: 20 mg Gabapentin (Neurontin) 400 mg PO TID [facility] Last Admin: 09/17/18 17:58 Dose: 400 mg Vancomycin/Sodium Chloride (Vancomycin 1 Gm/Ns 200 Ml) 1 gm in 200 mls @ 133 mls/hr IVPB Q24H [facility]; Protocol Stop: 09/20/18 19:01 Last Admin: 09/17/18 19:21 Dose: 133 mls/hr Magnesium Sulfate/Dextrose (Magnesium Sulfate 1 Gm/100 Ml D5w) 1 gm in 100 mls @ 300 mls/hr IVPB Q30M [facility] Stop: 09/18/18 08:19 Ibuprofen (Motrin Tab) 800 mg PO Q8 PRN PRN Reason: Fever >100.4 F Lactulose (Enulose) 30 gm PO Q8 [facility] Last Admin: 09/18/18 05:44 Dose: 30 gm Morphine Sulfate (Morphine) 1 mg IVP Q6H PRN PRN Reason: pain Last Admin: 09/17/18 22:08 Dose: 1 mg Neomycin Sulfate (Neomycin Tab) 500 mg PO Q6H [facility] Stop: 09/22/18 09:01 Last Admin: 09/18/18 02:26 Dose: 500 mg Potassium Chloride (K-Dur 20 Meq Er Tab) 20 meq PO DAILY [facility] Last Admin: 09/17/18 10:19 Dose: 20 meq Rifaximin (Xifaxan) 550 mg PO BID [facility]; Protocol Last Admin: 09/17/18 17:58 Dose: 550 mg - Labs Labs: 09/16/18 07:19 09/17/18 08:42 PT 20.8 SECONDS (9.7-12.2) H 09/14/18 20:09 INR 1.9 09/14/18 20:09 APTT 33 SECONDS (21-34) 09/14/18 20:09 - Constitutional Appears: Chronically Ill - Head Exam Head Exam: NORMAL INSPECTION - Eye Exam Eye Exam: Normal appearance - ENT Exam ENT Exam: Mucous Membranes Moist - Neck Exam Neck Exam: Full ROM - Respiratory Exam Respiratory Exam: Decreased Breath Sounds - Cardiovascular Exam Cardiovascular Exam: Irregular Rhythm - GI/Abdominal Exam GI & Abdominal Exam: Normal Bowel Sounds - Rectal Exam Rectal Exam: Deferred - Extremities Exam Extremities Exam: Pedal Edema - Back Exam Back Exam: NORMAL INSPECTION - Neurological Exam Neurological Exam: Alert - Psychiatric Exam Psychiatric exam: Normal Affect - Skin Skin Exam: Normal Color Assessment and Plan (1) Atrial fibrillation Assessment & Plan: will rate control with cardizem. not ideal candidate for anticoagulation Status: Acute (2) Hypertension Assessment & Plan: blood pressure control Status: Chronic
[2018-09-18] MEDS: Magnesium Sulfate 1 gm in D5W 1 GM/100 ML BAG IVPB SCH ×5 (08:26→15:46)
[2018-09-18 08:30] LABS: BLOOD UREA NITROGEN 8 mg/dL (9-20); CALCIUM 6.6 mg/dl (8.6-10.4); GFR NON-AFRICAN AMERICAN > 60
[2018-09-18] MEDS: Potassium Chloride 20 mEq ER Tab PO SCH ×3 (10:45→16:13)
--- NOTE | 2018-09-18 10:45 | PCM.IRP ---
History of Present Illness - History of Present Illness History of Present Illness: Ultrasound performed for thoracentesis shows no pleural effusion. Objective - Vital Signs/Intake and Output Vital Signs (last 24 hours): Vital Signs - 24 hr 09/17/18 09/17/18 09/17/18 15:00 16:00 17:59 Temperature 99.3 F Pulse Rate 93 H 93 H Respiratory 20 Rate Blood Pressure 108/66 106/65 O2 Sat by Pulse 100 Oximetry 09/17/18 09/17/18 09/18/18 23:05 23:30 04:21 Temperature 99 F 98.2 F Pulse Rate 96 H 88 97 H Respiratory 20 20 Rate Blood Pressure 116/73 106/58 L O2 Sat by Pulse 100 95 Oximetry 09/18/18 09/18/18 07:00 07:30 Temperature 97.9 F Pulse Rate 90 108 H Respiratory 20 Rate Blood Pressure 98/55 L O2 Sat by Pulse 99 Oximetry Intake and Output (last 12 hours): Intake & Output 09/17/18 09/18/18 09/18/18 18:59 06:59 18:59 Intake Total 340 900 Output Total 800 Balance 340 100 Intake: Intake, IV Amount 100 500 Left Upper arm 500 Right Antecubital 100 Oral 240 400 Output: Urine 800 Urine, Voided 800 Other: # Voids Urine, Voided 2 4 # Bowel Movements 2 - Medications Medications: Current Medications Albuterol/Ipratropium (Duoneb 3 Mg/0.5 Mg (3 Ml) Ud) 3 ml INH RQ6 PRN PRN Reason: Shortness of Breath Last Admin: 09/16/18 19:45 Dose: 3 ml Aspirin (Aspirin Chewable) 81 mg PO DAILY [facility] Last Admin: 09/17/18 10:19 Dose: 81 mg Cilostazol (Pletal) 100 mg PO Q12 [facility] Last Admin: 09/17/18 21:21 Dose: 100 mg Diltiazem HCl (Cardizem) 60 mg PO QID [facility] Last Admin: 09/17/18 21:21 Dose: 60 mg Enoxaparin Sodium (Lovenox) 40 mg SC DAILY [facility] Last Admin: 09/17/18 10:19 Dose: 40 mg Famotidine (Pepcid) 20 mg PO DAILY [facility] Last Admin: 09/17/18 10:19 Dose: 20 mg Fluticasone Propionate (Flonase) 1 spr EMRE DAILY PRN PRN Reason: congestion Folic Acid (Folic Acid) 1 mg PO DAILY [facility] Last Admin: 09/17/18 10:19 Dose: 1 mg Furosemide (Lasix) 20 mg IVP BID [facility] Last Admin: 09/17/18 17:59 Dose: 20 mg Gabapentin (Neurontin) 400 mg PO TID [facility] Last Admin: 09/17/18 17:58 Dose: 400 mg Vancomycin/Sodium Chloride (Vancomycin 1 Gm/Ns 200 Ml) 1 gm in 200 mls @ 133 mls/hr IVPB Q24H [facility]; Protocol Stop: 09/20/18 19:01 Last Admin: 09/17/18 19:21 Dose: 133 mls/hr Ibuprofen (Motrin Tab) 800 mg PO Q8 PRN PRN Reason: Fever >100.4 F Lactulose (Enulose) 30 gm PO Q8 [facility] Last Admin: 09/18/18 05:44 Dose: 30 gm Morphine Sulfate (Morphine) 1 mg IVP Q6H PRN PRN Reason: pain Last Admin: 09/17/18 22:08 Dose: 1 mg Neomycin Sulfate (Neomycin Tab) 500 mg PO Q6H [facility] Stop: 09/22/18 09:01 Last Admin: 09/18/18 08:25 Dose: 500 mg Potassium Chloride (K-Dur 20 Meq Er Tab) 20 meq PO DAILY [facility] Last Admin: 09/17/18 10:19 Dose: 20 meq Rifaximin (Xifaxan) 550 mg PO BID [facility]; Protocol Last Admin: 09/17/18 17:58 Dose: 550 mg - Labs Labs (last 24 hours): Laboratory Results - last 24 hr 09/15/18 09/18/18 20:13 08:06 Sodium 133 Potassium 3.2 L Chloride 98 Carbon Dioxide 29 Anion Gap 9 L BUN 8 L Creatinine 0.6 L Est GFR ( Amer) > 60 Est GFR (Non-Af Amer) > 60 Random Glucose 90 Calcium 6.6 L [place] Source See note
[2018-09-18] MEDS: Enoxaparin 40 mg Syringe SC SCH (10:46)
[2018-09-18] MEDS: Cilostazol 100 mg Tab UD PO SCH ×2 (10:46→21:35)
--- NOTE | 2018-09-18 11:42 | US ---
Date of service: 09/18/2018 PROCEDURE: HISTORY: Pleural effusion on chest x-ray COMPARISON: TECHNIQUE: Limited ultrasound of right and left chest performed for purposes of thoracentesis. FINDINGS: Ultrasound of the right and left chest performed showed no pleural effusion. IMPRESSION: There is no pleural effusion in the left or right chest for thoracentesis.
--- NOTE | 2018-09-18 15:53 | CP.PCM.PN ---
Subjective - Date & Time of Evaluation Date of Evaluation: 09/18/18 Time of Evaluation: 08:00 - Subjective Subjective: c/o pain left knee denies fever or chills' awake alert Objective - Vital Signs/Intake and Output Vital Signs (last 24 hours): Temp Pulse Resp BP Pulse Ox 97.9 F 108 H 20 113/64 99 09/18/18 07:00 09/18/18 07:30 09/18/18 07:00 09/18/18 10:46 09/18/18 07:00 Intake and Output: 09/18/18 09/18/18 06:59 18:59 Intake Total 900 Output Total 800 Balance 100 - Medications Medications: Current Medications Albuterol/Ipratropium (Duoneb 3 Mg/0.5 Mg (3 Ml) Ud) 3 ml INH RQ6 PRN PRN Reason: Shortness of Breath Last Admin: 09/16/18 19:45 Dose: 3 ml Aspirin (Aspirin Chewable) 81 mg PO DAILY [facility] Last Admin: 09/18/18 10:45 Dose: 81 mg Cilostazol (Pletal) 100 mg PO Q12 [facility] Last Admin: 09/18/18 10:46 Dose: 100 mg Diltiazem HCl (Cardizem) 60 mg PO QID [facility] Last Admin: 09/18/18 13:25 Dose: 60 mg Enoxaparin Sodium (Lovenox) 40 mg SC DAILY [facility] Last Admin: 09/18/18 10:46 Dose: 40 mg Famotidine (Pepcid) 20 mg PO DAILY [facility] Last Admin: 09/18/18 10:45 Dose: 20 mg Fluticasone Propionate (Flonase) 1 spr EMRE DAILY PRN PRN Reason: congestion Folic Acid (Folic Acid) 1 mg PO DAILY [facility] Last Admin: 09/18/18 10:45 Dose: 1 mg Furosemide (Lasix) 20 mg IVP BID [facility] Last Admin: 09/18/18 10:46 Dose: 20 mg Gabapentin (Neurontin) 400 mg PO TID [facility] Last Admin: 09/18/18 13:25 Dose: 400 mg Vancomycin/Sodium Chloride (Vancomycin 1 Gm/Ns 200 Ml) 1 gm in 200 mls @ 133 mls/hr IVPB Q24H [facility]; Protocol Stop: 09/20/18 19:01 Last Admin: 09/17/18 19:21 Dose: 133 mls/hr Magnesium Sulfate/Dextrose (Magnesium Sulfate 1 Gm/100 Ml D5w) 1 gm in 100 mls @ 200 mls/hr IVPB Q30M [facility] Stop: 09/18/18 15:59 Last Admin: 09/18/18 15:46 Dose: 200 mls/hr Ibuprofen (Motrin Tab) 800 mg PO Q8 PRN PRN Reason: Fever >100.4 F Lactulose (Enulose) 30 gm PO Q8 [facility] Last Admin: 09/18/18 13:26 Dose: 30 gm Magnesium Oxide (Mag-Ox) 400 mg PO DAILY [facility] Morphine Sulfate (Morphine) 1 mg IVP Q6H PRN PRN Reason: pain Last Admin: 09/17/18 22:08 Dose: 1 mg Neomycin Sulfate (Neomycin Tab) 500 mg PO Q6H [facility] Stop: 09/22/18 09:01 Last Admin: 09/18/18 14:36 Dose: 500 mg Potassium Chloride (K-Dur 20 Meq Er Tab) 20 meq PO DAILY [facility] Last Admin: 09/18/18 10:45 Dose: 20 meq Potassium Chloride (K-Dur 20 Meq Er Tab) 20 meq PO Q4 [facility] Stop: 09/18/18 16:01 Last Admin: 09/18/18 12:15 Dose: 20 meq Rifaximin (Xifaxan) 550 mg PO BID [facility]; Protocol Last Admin: 09/18/18 10:46 Dose: 550 mg - Labs Labs: 09/16/18 07:19 09/18/18 08:06 PT 20.8 SECONDS (9.7-12.2) H 09/14/18 20:09 INR 1.9 09/14/18 20:09 APTT 33 SECONDS (21-34) 09/14/18 20:09 - Constitutional Appears: Non-toxic, Chronically Ill - Head Exam Head Exam: NORMOCEPHALIC - Eye Exam Eye Exam: absent: Scleral icterus - ENT Exam ENT Exam: Mucous Membranes Dry, Normal External Ear Exam - Respiratory Exam Respiratory Exam: Decreased Breath Sounds - Cardiovascular Exam Cardiovascular Exam: REGULAR RHYTHM - GI/Abdominal Exam GI & Abdominal Exam: Distended, Soft - Rectal Exam Rectal Exam: Deferred - Exam Exam: Scrotal Swelling - Extremities Exam Extremities Exam: Pedal Edema. absent: Calf Tenderness - Back Exam Back Exam: absent: CVA tenderness (L), CVA tenderness (R) - Neurological Exam Neurological Exam: Alert, Awake, Oriented x3 - Psychiatric Exam Psychiatric exam: Depressed - Skin Skin Exam: Dry Assessment and Plan (1) Dyspnea Status: Acute (2) Hyperammonemia Status: Acute (3) Hyperbilirubinemia Status: Acute (4) Hypokalemia Status: Acute (5) Venous stasis dermatitis of both lower extremities Status: Acute (6) History of alcohol abuse Status: Chronic (7) Abdominal pain Status: Acute (8) Acute hepatic encephalopathy Status: Acute (9) SBP (spontaneous bacterial peritonitis) Status: Acute (10) Cellulitis and abscess of leg Status: Acute (11) Sepsis Status: Acute (12) Bacteremia Status: Acute - Assessment and Plan (Free Text) Assessment: resolving sepsis / bacteremia improving encephalopathy consider IAN cont IV antibiotics PT/OT nutritional support GI/Hepatology follow uop
[2018-09-18 16:10] VITALS: O2SAT 98
--- NOTE | 2018-09-18 17:22 | PN ---
DATE: 09/18/2018 LOCATION: 662, Bed A. SUBJECTIVE: This is a 47-year-old male seen and examined in rounds without significant clinical changes as the patient has less abdominal pain and less distention. The entire chart is reviewed and abdominal paracentesis was canceled. LABORATORY DATA: Today's lab results showed potassium 3.2 with low BUN and creatinine as well as low calcium with magnesium of 0.8. Ammonia level went down to 36. Hepatitis profile negative. PHYSICAL EXAMINATION: GENERAL: A 47-year-old awake, alert and oriented a kind of. VITAL SIGNS: Afebrile with pulse 104, respiratory 20 to 22, blood pressure of 110 of 66. HEENT: Showed pale dry oral mucoid membrane. Nonicteric sclerae. LUNGS: Few scattered crepitation. Decreased air entry at bases. HEART: Positive S1 and S2. ABDOMEN: Soft with mild generalized tenderness. No mass or organomegaly. No rebound tenderness or guarding. EXTREMITIES: No significant clubbing, cyanosis or edema. No reported new neurological deficits, sensory or motor. IMPRESSION: 1. Alcoholism. 2. Chronic liver disease with mild hepatic encephalopathy, with increased ammonia levels, gradually improving. 3. Past medical history including bipolar disorder, congestive heart failure, hypertension, chronic obstructive pulmonary disease and depression. 4. Reported schizophrenia by history. 5. Atrial fibrillation with atrial flutter by recent history as reported. SUGGESTIONS: 1. Continue current management. 2. Guaiac all the stools daily x3 cancer markers. Further recommendation to follow. Mayuri Ordonez MD Job # [id number]
[2018-09-18] MEDS: Vancomycin 1 gm/NS 200 ml 1 GM/200 ML BAG IVPB SCH (18:36)
--- NOTE | 2018-09-18 19:11 | CP.PCM.PN ---
Subjective - Date & Time of Evaluation Date of Evaluation: 09/18/18 Time of Evaluation: 19:11 Objective - Vital Signs/Intake and Output Vital Signs (last 24 hours): Temp Pulse Resp BP Pulse Ox 98.4 F 100 H 20 137/81 98 09/18/18 15:09 09/18/18 16:00 09/18/18 15:09 09/18/18 18:36 09/18/18 15:09 - Medications Medications: Current Medications Albuterol/Ipratropium (Duoneb 3 Mg/0.5 Mg (3 Ml) Ud) 3 ml INH RQ6 PRN PRN Reason: Shortness of Breath Last Admin: 09/16/18 19:45 Dose: 3 ml Aspirin (Aspirin Chewable) 81 mg PO DAILY [facility] Last Admin: 09/18/18 10:45 Dose: 81 mg Cilostazol (Pletal) 100 mg PO Q12 [facility] Last Admin: 09/18/18 10:46 Dose: 100 mg Diltiazem HCl (Cardizem) 60 mg PO QID [facility] Last Admin: 09/18/18 18:36 Dose: 60 mg Enoxaparin Sodium (Lovenox) 40 mg SC DAILY [facility] Last Admin: 09/18/18 10:46 Dose: 40 mg Famotidine (Pepcid) 20 mg PO DAILY [facility] Last Admin: 09/18/18 10:45 Dose: 20 mg Fluticasone Propionate (Flonase) 1 spr EMRE DAILY PRN PRN Reason: congestion Folic Acid (Folic Acid) 1 mg PO DAILY [facility] Last Admin: 09/18/18 10:45 Dose: 1 mg Furosemide (Lasix) 20 mg IVP BID [facility] Last Admin: 09/18/18 18:36 Dose: 20 mg Gabapentin (Neurontin) 400 mg PO TID [facility] Last Admin: 09/18/18 18:36 Dose: 400 mg Vancomycin/Sodium Chloride (Vancomycin 1 Gm/Ns 200 Ml) 1 gm in 200 mls @ 133 mls/hr IVPB Q24H [facility]; Protocol Stop: 09/20/18 19:01 Last Admin: 09/18/18 18:36 Dose: 133 mls/hr Ibuprofen (Motrin Tab) 800 mg PO Q8 PRN PRN Reason: Fever >100.4 F Lactulose (Enulose) 30 gm PO Q8 [facility] Last Admin: 09/18/18 13:26 Dose: 30 gm Magnesium Oxide (Mag-Ox) 400 mg PO DAILY [facility] Morphine Sulfate (Morphine) 1 mg IVP Q6H PRN PRN Reason: pain Last Admin: 09/17/18 22:08 Dose: 1 mg Neomycin Sulfate (Neomycin Tab) 500 mg PO Q6H [facility] Stop: 09/22/18 09:01 Last Admin: 09/18/18 14:36 Dose: 500 mg Potassium Chloride (K-Dur 20 Meq Er Tab) 20 meq PO DAILY [facility] Last Admin: 09/18/18 10:45 Dose: 20 meq Rifaximin (Xifaxan) 550 mg PO BID [facility]; Protocol Last Admin: 09/18/18 18:36 Dose: 550 mg - Labs Labs: 09/16/18 07:19 09/18/18 08:06 PT 20.8 SECONDS (9.7-12.2) H 09/14/18 20:09 INR 1.9 09/14/18 20:09 APTT 33 SECONDS (21-34) 09/14/18 20:09
--- NOTE | 2018-09-18 20:07 | CARD ---
APPROVED REPORT Date of service: 09/18/2018 EXAM: Two-dimensional and M-mode echocardiogram with Doppler and color Doppler. Other Information Quality : GoodRhythm : INDICATION Infection:Rule out subacute bacterial endocarditis 2D DIMENSIONS IVSd1.2 (0.7-1.1cm)LVDd5.7 (3.9-5.9cm) PWd1.1 (0.7-1.1cm)LA Hwoyyw17 (18-58mL) LVDs3.4 (2.5-4.0cm)FS (%) 39.5 % LVEF (%)69.4 (>50%)LVEF (See's)69.96 % M-Mode DIMENSIONS Left Atrium (MM)5.43 (2.5-4.0cm)IVSd1.16 (0.7-1.1cm) Aortic Root3.61 (2.2-3.7cm)LVDd5.48 (4.0-5.6cm) Aortic Cusp Exc.2.84 (1.5-2.0cm)PWd1.02 (0.7-1.1cm) FS (%) 27 %LVDs4.00 (2.0-3.8cm) LVEF (%)60 (>50%) Mitral Valve MV E Cjwxjlva92.3cm/sMV A Oxxrwowa66.7cm/sE/A ratio1.8 TDI Lateral E' Peak V16.55cm/sMedial E' Peak V9.45cm/sE/Lateral E'5.9 E/Medial E'10.3 Tricuspid Valve TR Peak Ewtzpdmm313rs/sTR Peak Gr.[id number] LEFT VENTRICLE The left ventricle is normal size. There is borderline concentric left ventricular hypertrophy. Left ventricle systolic function is normal. The Ejection Fraction is 65-70%. There is normal LV segmental wall motion. The left ventricular diastolic function is normal. There is no ventricular septal defect visualized. RIGHT VENTRICLE The right ventricle is normal size. The right ventricular systolic function is normal. ATRIA The left atrium is mildly dilated. The right atrium size is normal. AORTIC VALVE The aortic valve is normal in structure. No aortic regurgitation is present. There is no aortic valvular stenosis. MITRAL VALVE The mitral valve is normal in structure. There is no evidence of mitral valve prolapse. There is no mitral valve regurgitation noted. TRICUSPID VALVE The tricuspid valve is normal in structure. There is trace tricuspid regurgitation. Right ventricular systolic pressure is estimated at 30-40 mmHg. There is mild pulmonary hypertension. PULMONIC VALVE The pulmonary valve is normal in structure. There is no pulmonic valvular regurgitation. GREAT VESSELS The aortic root is normal in size. The ascending aorta is normal in size. The IVC is normal in size and collapses >50% with inspiration. PERICARDIAL EFFUSION There is no pericardial effusion. <Conclusion> There is borderline concentric left ventricular hypertrophy. Left ventricle systolic function is normal. The Ejection Fraction is 65-70%. The left ventricular diastolic function is normal. There is mild pulmonary hypertension. IAN is more specific to R/O vegetations.
[2018-09-18] MEDS: Morphine 4 MG/ML VIAL IVP PRN (20:09)
[2018-09-19 07:53] VITALS: PULSE 94
[2018-09-19 08:37] VITALS: RESP 20; TEMP 97.8
[2018-09-19] MEDS: Cilostazol 100 mg Tab UD PO SCH (09:54)
[2018-09-19] MEDS: Enoxaparin 40 mg Syringe SC SCH (09:55)
[2018-09-19] MEDS: Potassium Chloride 20 mEq ER Tab PO SCH (09:55)
[2018-09-19 09:56] VITALS: BP 112/70
[2018-09-19] MEDS ORDERED: Magnesium Oxide 400 mg Tab UD PO SCH (10:00)
--- NOTE | 2018-09-19 11:48 | CP.PCM.PN ---
Subjective - Date & Time of Evaluation Date of Evaluation: 09/19/18 Time of Evaluation: 09:00 - Subjective Subjective: + blood c/s less swelling / pain less cough Objective - Vital Signs/Intake and Output Vital Signs (last 24 hours): Temp Pulse Resp BP Pulse Ox 97.8 F 94 H 20 112/70 98 09/19/18 07:00 09/19/18 07:33 09/19/18 07:00 09/19/18 09:55 09/19/18 07:00 Intake and Output: 09/19/18 09/19/18 06:59 18:59 Intake Total 1000 Output Total 800 Balance 200 - Medications Medications: Current Medications Albuterol/Ipratropium (Duoneb 3 Mg/0.5 Mg (3 Ml) Ud) 3 ml INH RQ6 PRN PRN Reason: Shortness of Breath Last Admin: 09/16/18 19:45 Dose: 3 ml Aspirin (Aspirin Chewable) 81 mg PO DAILY [facility] Last Admin: 09/19/18 09:54 Dose: 81 mg Cilostazol (Pletal) 100 mg PO Q12 [facility] Last Admin: 09/19/18 09:54 Dose: 100 mg Diltiazem HCl (Cardizem) 60 mg PO QID [facility] Last Admin: 09/19/18 09:55 Dose: 60 mg Enoxaparin Sodium (Lovenox) 40 mg SC DAILY [facility] Last Admin: 09/19/18 09:55 Dose: 40 mg Famotidine (Pepcid) 20 mg PO DAILY [facility] Last Admin: 09/19/18 09:54 Dose: 20 mg Fluticasone Propionate (Flonase) 1 spr EMRE DAILY PRN PRN Reason: congestion Folic Acid (Folic Acid) 1 mg PO DAILY [facility] Last Admin: 09/19/18 09:54 Dose: 1 mg Furosemide (Lasix) 20 mg IVP BID [facility] Last Admin: 09/19/18 09:55 Dose: 20 mg Gabapentin (Neurontin) 400 mg PO TID [facility] Last Admin: 09/19/18 09:54 Dose: 400 mg Vancomycin/Sodium Chloride (Vancomycin 1 Gm/Ns 200 Ml) 1 gm in 200 mls @ 133 m ls/hr IVPB Q24H [facility]; Protocol Stop: 09/20/18 19:01 Last Admin: 09/18/18 18:36 Dose: 133 mls/hr Ibuprofen (Motrin Tab) 800 mg PO Q8 PRN PRN Reason: Fever >100.4 F Last Admin: 09/19/18 09:55 Dose: 800 mg Lactulose (Enulose) 30 gm PO Q8 [facility] Last Admin: 09/19/18 05:11 Dose: 30 gm Magnesium Oxide (Mag-Ox) 400 mg PO DAILY [facility] Last Admin: 09/19/18 09:55 Dose: 400 mg Morphine Sulfate (Morphine) 1 mg IVP Q6H PRN PRN Reason: pain Last Admin: 09/18/18 20:09 Dose: 1 mg Neomycin Sulfate (Neomycin Tab) 500 mg PO Q6H [facility] Stop: 09/22/18 09:01 Last Admin: 09/19/18 08:21 Dose: 500 mg Potassium Chloride (K-Dur 20 Meq Er Tab) 20 meq PO DAILY [facility] Last Admin: 09/19/18 09:55 Dose: 20 meq Rifaximin (Xifaxan) 550 mg PO BID [facility]; Protocol Last Admin: 09/19/18 09:54 Dose: 550 mg - Labs Labs: 09/16/18 07:19 09/18/18 08:06 PT 20.8 SECONDS (9.7-12.2) H 09/14/18 20:09 INR 1.9 09/14/18 20:09 APTT 33 SECONDS (21-34) 09/14/18 20:09 - Constitutional Appears: Non-toxic, Chronically Ill - Head Exam Head Exam: NORMOCEPHALIC - Eye Exam Eye Exam: absent: Scleral icterus - ENT Exam ENT Exam: Mucous Membranes Dry - Neck Exam Neck Exam: absent: Lymphadenopathy - Respiratory Exam Respiratory Exam: Decreased Breath Sounds - Cardiovascular Exam Cardiovascular Exam: REGULAR RHYTHM - GI/Abdominal Exam GI & Abdominal Exam: Distended, Soft Assessment and Plan (1) Dyspnea Status: Acute (2) Hyperammonemia Status: Acute (3) Hyperbilirubinemia Status: Acute (4) Hypokalemia Status: Acute (5) Venous stasis dermatitis of both lower extremities Status: Acute (6) History of alcohol abuse Status: Chronic (7) Abdominal pain Status: Acute (8) Acute hepatic encephalopathy Status: Acute (9) SBP (spontaneous bacterial peritonitis) Status: Acute (10) Cellulitis and abscess of leg Status: Acute (11) Sepsis Status: Acute (12) Bacteremia Status: Acute
--- NOTE | 2018-09-22 03:16 | CP.PCM.DIS ---
Provider - Provider Date of Admission: 09/14/18 22:07 Attending physician: Carlos Liu MD Consults: 09/15/18 00:29 Infectious Disease Consult Routine Comment: Consulting Provider: Srikanth Dykes Consulting Physician: Srikanth Dykes Reason for Consult: sepsis 09/15/18 00:30 Gastroenterology Consult Routine Comment: Consulting Provider: Mayuri Arriola Consulting Physician: Mayuri Arriola Reason for Consult: ascites 09/15/18 07:00 Case Management Referral Routine Comment: Physician Instructions: Reason For Exam: hx chf Reason for Referral: Discharge Planning 09/15/18 15:32 Radiology Consult Routine Comment: Consulting Provider: Keyur Rosas Consulting Physician: Keyur Rosas Reason for Consult: paracentesis 09/17/18 10:01 Cardiology Consult Routine Comment: Consulting Provider: Lashonda Levy Consulting Physician: Lashonda Levy Reason for Consult: afib RVR Time Spent in preparation of Discharge (in minutes): 10 Hospital Course - Lab Results Lab Results: Micro Results 09/16/18 02:41 Stool Stool Culture - Final NO SALMONELLA, SHIGELLA OR CAMPYLOBACTER ISOLATED. 09/15/18 18:00 Blood-Venous S.aureus & Coag-Neg Staph PNA FISH - Final TEST NOT PERFORMED 09/15/18 18:00 Blood-Venous Blood Culture - Final Group G Streptococcus 09/15/18 18:00 Blood-Venous Gram Stain - Final 09/15/18 03:58 Blood-Venous Blood Culture - Final Group G Streptococcus 09/15/18 03:58 Blood-Venous Gram Stain - Final Most Recent Lab Values WBC 7.2 K/uL (4.8-10.8) 09/16/18 07:19 RBC 3.16 Mil/uL (4.40-5.90) L 09/16/18 07:19 Hgb 9.3 g/dL (12.0-18.0) L D 09/16/18 07:19 Hct 27.6 % (35.0-51.0) L 09/16/18 07:19 MCV 87.3 fL (80.0-94.0) 09/16/18 07:19 MCH 29.3 pg (27.0-31.0) 09/16/18 07:19 MCHC 33.6 g/dL (33.0-37.0) 09/16/18 07:19 RDW 17.8 % (11.5-14.5) H 09/16/18 07:19 Plt Count 114 K/uL (130-400) L 09/16/18 07:19 MPV 8.5 fL (7.2-11.7) 09/16/18 07:19 Neut % (Auto) 68.6 % (50.0-75.0) 09/16/18 07:19 Lymph % (Auto) 13.9 % (20.0-40.0) L 09/16/18 07:19 [place] % (Auto) 15.8 % (0.0-10.0) H 09/16/18 07:19 Eos % (Auto) 1.3 % (0.0-4.0) 09/16/18 07: Baso % (Auto) 0.4 % (0.0-2.0) 09/16/18 07:19 Neut # (Auto) 4.9 K/uL (1.8-7.0) 09/16/18 07:19 Lymph # (Auto) 1.0 K/uL (1.0-4.3) 09/16/18 07:19 [place] # (Auto) 1.1 K/uL (0.0-0.8) H 09/16/18 07:19 Eos # (Auto) 0.1 K/uL (0.0-0.7) 09/16/18 07:19 Baso # (Auto) 0.0 K/uL (0.0-0.2) 09/16/18 07:19 Neutrophils % (Manual) 83 % (50-75) H 09/14/18 20:09 Band Neutrophils % 10 % (0-2) H 09/14/18 20:09 Lymphocytes % (Manual) 5 % (20-40) L 09/14/18 20:09 Monocytes % (Manual) 1 % (0-10) 09/14/18 20:09 Myelocytes % 1 % (0-0) H 09/14/18 20:09 Differential Comment 09/16/18 07:19 Platelet Estimate Normal (NORMAL) 09/14/18 20:09 Large Platelets Present 09/14/18 20:09 Anisocytosis (manual) Slight 09/14/18 20:09 PT 20.8 SECONDS (9.7-12.2) H 09/14/18 20:09 INR 1.9 09/14/18 20:09 APTT 33 SECONDS (21-34) 09/14/18 20:09 D-Dimer, Quantitative 5146 ng/mlDDU (0-243) H 09/14/18 20:09 pO2 42 mm/Hg (30-55) 09/14/18 21:58 VBG pH 7.40 (7.32-7.43) 09/14/18 21:58 VBG pCO2 36 mmHg (40-60) L 09/14/18 21:58 VBG HCO3 22.8 mmol/L 09/14/18 21:58 VBG Total CO2 23.4 mmol/L (22-28) 09/14/18 21:58 VBG O2 Sat (Calc) 82.6 % (40-65) H 09/14/18 21:58 VBG Base Excess -2.0 mmol/L (0.0-2.0) L 09/14/18 21:58 VBG Potassium 9.1 mmol/L (3.6-5.2) H* 09/14/18 21:58 Sodium 125.0 mmol/l (132-148) L 09/14/18 21:58 Chloride 100.0 mmol/L (98-107) 09/14/18 21:58 Glucose 74 mg/dl (75-110) L 09/14/18 21:58 Lactate 1.9 mmol/L (0.7-2.1) 09/14/18 21:58 Crit Value Called To Dr cooper 09/14/18 21:58 Crit Value Called By Erwin arce 09/14/18 21:58 Crit Value Read Back Y 09/14/18 21:58 Blood Gas Notified Time 220009/14/18 21:58 Sodium 133 mmol/L (132-148) 09/18/18 08:06 Potassium 3.2 mmol/L (3.6-5.2) L 09/18/18 08:06 Chloride 98 mmol/L (98-107) 09/18/18 08:06 Carbon Dioxide 29 mmol/L (22-30) 09/18/18 08:06 Anion Gap 9 (10-20) L 09/18/18 08:06 BUN 8 mg/dL (9-20) L 09/18/18 08:06 Creatinine 0.6 mg/dL (0.8-1.5) L 09/18/18 08:06 Est GFR ( Amer) > 60 09/18/18 08:06 Est GFR (Non-Af Amer) > 60 09/18/18 08:06 Random Glucose 90 mg/dL (75-110) 09/18/18 08:06 Lactic Acid 1.2 mmol/L (0.7-2.1) 09/15/18 20:13 Calcium 6.6 mg/dl (8.6-10.4) L 09/18/18 08:06 Magnesium 1.1 mg/dL (1.6-2.3) L 09/18/18 08:06 Total Bilirubin 2.2 mg/dL (0.2-1.3) H 09/16/18 07:19 AST 44 U/L (17-59) 09/16/18 07:19 ALT 18 U/L (21-72) L 09/16/18 07:19 Alkaline Phosphatase 140 U/L (38-126) H D 09/16/18 07:19 Ammonia 36 umol/L (9-33) H D 09/17/18 08:42 Troponin I < 0.0120 ng/mL (0.00-0.120) 09/14/18 20:09 NT-Pro-B Natriuret Pep 369 pg/mL (0-450) 09/14/18 20:37 Total Protein 7.2 g/dL (6.3-8.3) 09/16/18 07:19 Albumin 2.2 g/dL (3.5-5.0) L 09/16/18 07:19 Globulin 5.0 gm/dL (2.2-3.9) H 09/16/18 07:19 Albumin/Globulin Ratio 0.4 (1.0-2.1) L 09/16/18 07:19 Lipase 133 U/L (23-300) 09/14/18 20:37 Alpha Fetoprotein 1.6 ng/mL (0.0-7.5) 09/15/18 13:44 Carcinoembryonic Ag 2.7 ng/mL (0-3.0) 09/15/18 13:44 CA 19-9 Antigen < 1.4 U/mL (0-37) 09/15/18 13:44 Procalcitonin 3.22 NG/ML (0.19-0.49) H 09/15/18 20:13 Venous Blood Potassium 9.1 mmol/L (3.6-5.2) H* 09/14/18 21:58 Urine Color Aide (YELLOW) 09/15/18 00:19 Urine Clarity Clear (Clear) 09/15/18 00:19 Urine pH 5.0 (5.0-8.0) 09/15/18 00:19 Ur Specific [place] 1.014 (1.003-1.030) 09/15/18 00:19 Urine Protein 1+ mg/dL (NEGATIVE) H 09/15/18 00:19 Urine Glucose (UA) Normal mg/dL (Normal) 09/15/18 00:19 Urine Ketones Negative mg/dL (NEGATIVE) 09/15/18 00:19 Urine Blood Negative (NEGATIVE) 09/15/18 00:19 Urine Nitrate Negative (NEGATIVE) 09/15/18 00:19 Urine Bilirubin Negative (NEGATIVE) 09/15/18 00:19 Urine Urobilinogen 4.0 mg/dL (0.2-1.0) 09/15/18 00:19 Ur Leukocyte Esterase Neg [place]/uL (Negative) 09/15/18 00:19 Urine WBC (Auto) 6 /hpf (0-5) H 09/15/18 00:19 Urine RBC (Auto) < 1 /hpf (0-3) 09/15/18 00:19 Ur Squamous Epith Cells 2 /hpf (0-5) 09/15/18 00:19 Urine Bacteria Rare (<OCC) 09/15/18 00:19 Hyaline Casts 3-5 /lpf (0-2) H 09/15/18 00:19 Stool Occult Blood Cancelled 09/16/18 02:41 Hepatitis A IgM Ab Negative (NEGATIVE) 09/16/18 07:19 Hep Bs Antigen Negative (NEGATIVE) 09/16/18 07:19 Hep B Core IgM Ab Negative (NEGATIVE) 09/16/18 07:19 Hepatitis C Antibody Negative (NEGATIVE) 09/16/18 07:19 HIV 1&2 Antibody Screen Negative (NEGATIVE) 09/16/18 07:19 Influenza Typ A,B (EIA) Negative for flu a/b (NEGATIVE) 09/16/18 02:41 Malaria Source See note (NEGATIVE) 09/15/18 20:13 Blood Parasites Smear Negative (NEGATIVE) 09/15/18 20:13 - Hospital Course Hospital Course: Patient with multiple medical problems including liver cirrhosis presented with altered mental status. Patient was treated for hepatic encephalopathy and underwent paracentesis. Once patient's condition improved he signed out AMA Discharge Exam - Head Exam Head Exam: NORMOCEPHALIC Discharge Plan - Follow Up Plan Condition: GUARDED Disposition: AGAINST MEDICAL ADVICE
== END 2018-09-19 13:30 | disposition left against medical advice (07) | DRG 871 ==
LOC: C.ER 19:34 → C.9E 22:07 → C.6T 23:38
PROVIDERS: ADMIT Internal Medicine Critical Care Medicine; ATTEND Internal Medicine Critical Care Medicine
DX: A41.9 Sepsis, unspecified organism (principal); G93.41 Metabolic encephalopathy; K65.2 Spontaneous bacterial peritonitis; K72.00 Acute and subacute hepatic failure without coma; L03.116 Cellulitis of left lower limb; L03.115 Cellulitis of right lower limb; N17.9 Acute kidney failure, unspecified; F10.239 Alcohol dependence with withdrawal, unspecified; R65.20 Severe sepsis without septic shock; K70.30 Alcoholic cirrhosis of liver without ascites; I11.0 Hypertensive heart disease with heart failure; I50.9 Heart failure, unspecified; J44.9 Chronic obstructive pulmonary disease, unspecified; F20.9 Schizophrenia, unspecified; F31.9 Bipolar disorder, unspecified; E87.6 Hypokalemia; D69.6 Thrombocytopenia, unspecified; I87.2 Venous insufficiency (chronic) (peripheral); D64.9 Anemia, unspecified; I48.91 Unspecified atrial fibrillation; Y90.9 Presence of alcohol in blood, level not specified

== ENCOUNTER 2018-09-20 04:41 | Observation (INO) | payer MEDICARE, OTHER ==
[2018-09-20 05:38] VITALS: BMI 48.0
--- NOTE | 2018-09-20 05:45 | C.PDOC ---
History Of Present Illness 47 year old male with multiple medical problems, former alcoholic, presents to the ER with a complaint of left leg pain for the past 2 weeks that worsened today. Patient states he came home after a 5 week visit to the [facility] some time last week, later he admits he was admitted from 09/14/18 to 09/19/18, records show he left AMA. Denies chest pain or SOB. pt had no workup for dvt while recently admitted. pt is a vague historian. Time Seen by Provider: 09/20/18 05:37 Chief Complaint (Nursing): Lower Extremity Problem/Injury History Per: Patient History/Exam Limitations: no limitations Onset/Duration Of Symptoms: Days Current Symptoms Are (Timing): Still Present Recent travel outside of the [place] States: Yes Past Medical History Reviewed: Historical Data, Nursing Documentation, Vital Signs - Medical History PMH: Anxiety, Arthritis, Asthma, Atrial Fibrillation, CHF, COPD, Gall Bladder Disease, HTN Denies: Bipolar Disorder, Depression, Diabetes, Hepatitis, HIV, Chronic Kidney Disease, Schizophrenia, Seizures, Sexually Transmitted Disease Surgical History: Appendectomy, Cholecystectomy Denies: CABG, Coronary Stent, Pacemaker, Tonsillectomy - [facility] Procedures FLUOROSCOPY OF RIGHT JUGULAR VEINS, GUIDANCE (11/14/15) INSERT INFUSION DEV IN R INT JUGULAR VEIN, PERC (11/14/15) INTRODUCTION OF SERUM/TOX/VACCINE INTO MUSCLE, PERC APPROACH (05/28/17) REMOVAL OF INFUSION DEVICE FROM UPPER VEIN, LEAD CARPENTER APPROACH (11/14/15) Family History: States: Unknown Family Hx - Social History Hx Tobacco Use: No Hx Alcohol Use: No Hx Substance Use: No - Immunization History Hx Tetanus Toxoid Vaccination: No Hx Influenza Vaccination: No Hx Pneumococcal Vaccination: No Review Of Systems Constitutional: Negative for: Fever, Chills Cardiovascular: Negative for: Chest Pain Respiratory: Negative for: Shortness of Breath Gastrointestinal: Negative for: Nausea, Vomiting Musculoskeletal: Positive for: Leg Pain (Left) Neurological: Negative for: Weakness, Numbness Physical Exam - Physical Exam Appears: Non-toxic, Other (Morbidly obese) Skin: Warm, Dry Head: Atraumatic, Normacephalic Eye(s): bilateral: Normal Inspection Oral Mucosa: Moist Neck: Normal, Supple Chest: Symmetrical, No Tenderness Cardiovascular: Rhythm Regular Respiratory: Normal Breath Sounds, No Rales, No Rhonchi, No Wheezing Gastrointestinal/Abdominal: Soft, No Tenderness Extremity: Other (Bilateral lower extremities with marked venous stasis thick in durated skin. Tenderness to medial left thigh.) Pulses: Left Femoral: Normal, Right Femoral: Normal, Left Dorsalis Pedis: Normal, Right Dorsalis Pedis: Normal Neurological/Psych: Oriented x3, Normal Speech, Normal Motor, Normal Sensation Gait: Steady ED Course And Treatment - Laboratory Results Result Diagrams: 09/20/18 06:12 09/20/18 06:12 Medical Decision Making Medical Decision Making: Blood work and urinalysis ordered. Lovenox administered. Patient to receive doppler in the morning. 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 - Scribe Statement The provider has reviewed the documentation as recorded by the Scribe Srikanth Moncada All medical record entries made by the Scribe were at my direction and personally dictated by me. I have reviewed the chart and agree that the record accurately reflects my personal performance of the history, physical exam, medical decision making, and the department course for this patient. I have also personally directed, reviewed, and agree with the discharge instructions and disposition. Physician Patient Turnover Patient Signed Over To: Clarisa Davis Handoff Comments: f/u venous doppler, electrolytes, likely re-admit
[2018-09-20] MEDS ORDERED: Enoxaparin 120 mg Syringe SC STA (06:08)
[2018-09-20 06:18] LABS: BASO % 0.8 % (0.0-2.0); EOS # 0.1 K/uL (0.0-0.7); EOS % 1.5 % (0.0-4.0); LYMPH % 22.4 % (20.0-40.0); MEAN CELL VOLUME 88.4 fL (80.0-94.0); MEAN CORPUSCULAR HEMOGLOBIN 29.9 pg (27.0-31.0); MEAN CORPUSCULAR HGB CONC 33.8 g/dL (33.0-37.0); MEAN PLATELET VOLUME 8.4 fL (7.2-11.7); MONO # 0.7 K/uL (0.0-0.8); NEUT # 2.6 K/uL (1.8-7.0); NEUT % 59.3 % (50.0-75.0); NRBC % 0.2 % (0.0-2.0); RED CELL DISTRIBUTION WIDTH 17.9 % (11.5-14.5); WHITE BLOOD COUNT 4.3 K/uL (4.8-10.8)
[2018-09-20 06:31] LABS: INR 1.6; PROTHROMBIN TIME 17.2 SECONDS (9.7-12.2)
[2018-09-20 06:32] LABS: ALB/GLOB RATIO 0.4 (1.0-2.1); ALBUMIN 2.5 g/dL (3.5-5.0); ALT/SGPT 17 U/L (21-72); AST/SGOT 87 U/L (17-59); BLOOD UREA NITROGEN 10 mg/dL (9-20); CALCIUM 7.2 mg/dl (8.6-10.4); GFR NON-AFRICAN AMERICAN > 60
[2018-09-20] MEDS ORDERED: Enoxaparin 80 mg Syringe ONE (06:33)
[2018-09-20] MEDS ORDERED: Enoxaparin 40 mg Syringe ONE (06:33)
[2018-09-20] MEDS ORDERED: Magnesium Sulfate 1 gm in D5W 1 GM/100 ML BAG IVPB STA (06:34)
[2018-09-20] MEDS ORDERED: Magnesium Sulfate 1 gm in D5W 2 GM/200 ML BAG IVPB ONE (06:37)
[2018-09-20 06:41] LABS: BARBITURATES, UR NEGATIVE (NEGATIVE); BENZODIAZEPINES, UR NEGATIVE (NEGATIVE); OPIATES, UR NEGATIVE (NEGATIVE); PHENCYCLIDINE, UR NEGATIVE (NEGATIVE)
[2018-09-20 06:47] LABS: SQUAMOUS EPITHIAL < 1 /hpf (0-5); URINE BILIRUBIN NEGATIVE (NEGATIVE); URINE BLOOD NEGATIVE (NEGATIVE); URINE CLARITY Clear (Clear); URINE COLOR Yellow (YELLOW); URINE GLUCOSE (UA) NORMAL (Normal); URINE LEUKOCYTE ESTERASE NEG Leu/uL (Negative); URINE PROTEIN NEGATIVE (NEGATIVE); URINE UROBILINOGEN NORMAL mg/dL (0.2-1.0)
[2018-09-20 11:31] VITALS: RESP 20
[2018-09-20] MEDS ORDERED: Fluticasone Nasal 50 mcg/Spray NS PRN (14:22)
--- NOTE | 2018-09-20 14:22 | VASCLAB ---
Date of service: 09/20/2018 PROCEDURE: Lower Extremity Venous Duplex Exam. HISTORY: Bilateral leg pain. PRIORS: 02/22/2018, normal. TECHNIQUE: Bilateral common femoral, femoral, popliteal and posterior tibial, peroneal and great saphenous veins were evaluated. Flow was assessed with color Doppler, compressibility, assessment of phasic flow and augmentation response. Report prepared by Srikanth Hanks, BS, RVT FINDINGS: RIGHT: 1. Common Femoral Vein: 1.1. Compressibility - Fully compressible: Thrombus - None : Flow - Phasic: Augmentation -Normal: Reflux - None. 2. Femoral Vein: 2.1. Compressibility - Fully compressible: Thrombus - None : Flow - Phasic: Augmentation -Normal: Reflux - None. 3. Popliteal Vein: 3.1. Compressibility - Fully compressible: Thrombus - None : Flow - Phasic: Augmentation -Normal: Reflux - None. 4. Posterior Tibial Vein: 5. Peroneal Vein: 6. Great Saphenous Vein: 6.1. Compressibility - Fully compressible: Thrombus - None: Flow - Phasic: Augmentation - Normal: Reflux - None. LEFT: 1. Common Femoral Vein: 1.1. Compressibility - Fully compressible: Thrombus - None: Flow - Phasic: Augmentation -Normal: Reflux - None. 2. Femoral Vein: 2.1. Compressibility - Fully compressible: Thrombus - None: Flow - Phasic: Augmentation -Normal: Reflux - None. 3. Popliteal Vein: 3.1. Compressibility - Fully compressible: Thrombus - None : Flow - Phasic: Augmentation -Normal: Reflux - None. 4. Posterior Tibial Vein: 4.1. 5. Peroneal Vein: 6. Great Saphenous Vein: 6.1. Compressibility - Fully compressible: Thrombus - None: Flow - Phasic: Augmentation - Normal: Reflux - None. OTHER FINDINGS: Bilateral calf veins were not visualized due to swelling. IMPRESSION: Right: No evidence of deep or superficial vein thrombosis of the right lower extremity. Normal valve function noted of the right side. Left: No evidence of deep or superficial vein thrombosis of the left lower extremity. Normal valve function noted of the left side.
--- NOTE | 2018-09-20 15:09 | CP.PCM.HP ---
Past Patient History - Infectious Disease Hx of Infectious Diseases: None - Tetanus Immunizations Tetanus Immunization: Unknown - Past Medical History & Family History Past Medical History?: Yes - Past Social History Smoking Status: Former Smoker - CARDIAC Hx Atrial Fibrillation: Yes Hx Congestive Heart Failure: Yes Hx Hypertension: Yes Hx Pacemaker: No - PULMONARY Hx Asthma: Yes Hx Chronic Obstructive Pulmonary Disease (COPD): Yes - NEUROLOGICAL Hx Seizures: No - HEENT Hx HEENT Problems: No - RENAL Hx Chronic Kidney Disease: No - HEMATOLOGICAL/ONCOLOGICAL Hx Human Immunodeficiency Virus (HIV): No - INTEGUMENTARY Hx Dermatological Problems: No - MUSCULOSKELETAL/RHEUMATOLOGICAL Hx Arthritis: Yes - GASTROINTESTINAL Hx Gall Bladder Disease: Yes - GENITOURINARY/GYNECOLOGICAL Hx Sexually Transmitted Disorders: No - PSYCHIATRIC Hx Anxiety: Yes Hx Bipolar Disorder: No Hx Depression: No Hx Schizophrenia: No Hx Substance Use: No - SURGICAL HISTORY Hx Appendectomy: Yes Hx Cholecystectomy: Yes Hx Coronary Artery Bypass Graft: No Hx Coronary Stent: No Hx Tonsillectomy: No - ANESTHESIA Hx Anesthesia: Yes Hx Anesthesia Reactions: No Hx Malignant Hyperthermia: No Meds Allergies/Adverse Reactions: Allergies Allergy/AdvReac Type Severity Reaction Status Date / Time No Known Allergies Allergy Verified 09/20/18 05:38 Results - Vital Signs Recent Vital Signs: Last Vital Signs Temp 97.5 F L 09/20/18 11:30 Pulse 76 09/20/18 11:30 Resp 20 09/20/18 11:30 BP 107/60 09/20/18 11:30 Pulse Ox 98 09/20/18 11:30 - Labs Result Diagrams: 09/20/18 06:12 09/20/18 06:12 Labs: Laboratory Results - last 24 hr 09/20/18 09/20/18 09/20/18 06:06 06:06 06:12 WBC 4.3 L RBC 3.00 L Hgb 9.0 L Hct 26.6 L MCV 88.4 MCH 29.9 MCHC 33.8 RDW 17.9 H Plt Count 176 MPV 8.4 Neut % (Auto) 59.3 Lymph % (Auto) 22.4 Atkinson % (Auto) 16.0 H Eos % (Auto) 1.5 Baso % (Auto) 0.8 Neut # (Auto) 2.6 Lymph # (Auto) 1.0 Atkinson # (Auto) 0.7 Eos # (Auto) 0.1 Baso # (Auto) 0.0 PT INR APTT D-Dimer, Quantitative Sodium Potassium Chloride Carbon Dioxide Anion Gap BUN Creatinine Est GFR ( Amer) Est GFR (Non-Af Amer) Random Glucose Calcium Phosphorus Magnesium Total Bilirubin AST ALT Alkaline Phosphatase Ammonia Total Protein Albumin Globulin Albumin/Globulin Ratio Urine Color Yellow Urine Clarity Clear Urine pH 7.0 Ur Specific Stephen 1.006 Urine Protein Negative Urine Glucose (UA) Normal Urine Ketones Negative Urine Blood Negative Urine Nitrate Negative Urine Bilirubin Negative Urine Urobilinogen Normal Ur Leukocyte Esterase Neg Urine WBC (Auto) 1 Ur Squamous Epith Cells < 1 Urine Opiates Screen Negative Urine Methadone Screen Negative Ur Barbiturates Screen Negative Ur Phencyclidine Scrn Negative Ur Amphetamines Screen Negative U Benzodiazepines Scrn Negative U Oth Cocaine Metabols Negative U Cannabinoids Screen Negative Alcohol, Quantitative 09/20/18 09/20/18 09/20/18 06:12 06:12 06:12 WBC RBC Hgb Hct MCV MCH MCHC RDW Plt Count MPV Neut % (Auto) Lymph % (Auto) Atkinson % (Auto) Eos % (Auto) Baso % (Auto) Neut # (Auto) Lymph # (Auto) Atkinson # (Auto) Eos # (Auto) Baso # (Auto) PT 17.2 H INR 1.6 APTT 32 D-Dimer, Quantitative 1212 H Sodium 132 Potassium 4.0 Chloride 99 Carbon Dioxide 28 Anion Gap 9 L BUN 10 Creatinine 0.7 L Est GFR ( Amer) > 60 Est GFR (Non-Af Amer) > 60 Random Glucose 91 Calcium 7.2 L Phosphorus 2.4 L Magnesium 1.0 L* Total Bilirubin 1.9 H AST 87 H D ALT 17 L Alkaline Phosphatase 151 H Ammonia 18 D Total Protein 8.3 Albumin 2.5 L Globulin 5.8 H Albumin/Globulin Ratio 0.4 L Urine Color Urine Clarity Urine pH Ur Specific Stephen Urine Protein Urine Glucose (UA) Urine Ketones Urine Blood Urine Nitrate Urine Bilirubin Urine Urobilinogen Ur Leukocyte Esterase Urine WBC (Auto) Ur Squamous Epith Cells Urine Opiates Screen Urine Methadone Screen Ur Barbiturates Screen Ur Phencyclidine Scrn Ur Amphetamines Screen U Benzodiazepines Scrn U Oth Cocaine Metabols U Cannabinoids Screen Alcohol, Quantitative < 10
--- NOTE | 2018-09-20 16:57 | NM ---
Date of service: 09/20/2018 COMPARISON: Comparison is made with the previous V/Q scan dated 03/18/2018. Comparison is also made with the recent chest x-ray dated 09/15/2018 TECHNIQUE: 7.5 mCi technetium 99-m Xe-133 Gas. 4.3 mCI technetium 99-m MAA administered intravenously. FINDINGS: VENTILATION COMPONENT: Slightly heterogeneous. Small amount of radiotracer retention noted at mid and lower lungs. PERFUSION COMPONENT: Again noted are small nonsegmental foci of perfusion defects more prominent in the left lung. No evidence of segmental mismatched perfusion defect. IMPRESSION: Lowprobability ventilation perfusion scan for pulmonary embolism. Heterogeneous perfusion again noted without evidence of segmental mismatched perfusion defects.
--- NOTE | 2018-09-20 17:27 | CP.PCM.CON ---
History of Present Illness - History of Present Illness History of Present Illness: Nephrology Consultation Note: Assessment: Stable Hypomagnesemia ? due to renal loss due to diuretics Hyponatremia Hypophosphatemia anemia hypoalbuminemia A fib dCHF, alcohol and related cirrhosis, splenomegaly morbid obesity Plan Hypertension control with meds as ordered. Maintain hemodynamics stable. Avoid hypotension. Patient not on ACEI/ARB Monitor Input/Output, daily weights and renal function with basic metabolic panel supplement IV mag and added po mag as well Check urine Na, Cr, Osmol, Mag Check for 25-OH vitamin D Dose meds/antibiotics for normal GFR. Glycemic control, weight loss Further work up/management as per primary team Thanks for allowing me to participate in care of your patient. Will follow patient with you. Please call if any Qs Dr James Almonte Office: [phone] Chief Complaint; leg pain Reason for consult: Hypomag HPI: Pt is a 47 M with hx of dCHF, A fib, alcohol and related cirrhosis, splenomegaly morbid obesity presented with complaints of leg pain and swelling. being managed for fluid overload. renal consult for low Mag otherwise pt feels usual health not on PPI. no gi fluid loss pt recently admitted with hepatic enceph and sepsis ROS: Cardiovascular: No chest pain. Pulmonary: No shortness of breath Gastrointestinal: denies abdominal pain No nausea. No vomiting. Genitourinary: No pain while urinating. Denies blood in urine. All other negative except as mentioned in HPI Physical Examination: General Appearance: Comfortable, in no acute respiratory distress, co-operative . obese Vitals reviewed and noted as below Head; Atraumatic, normocephalic ENT: no ulcers no thrush. Tongue is midline. Oropharynx: no rash or ulcers. EYES: Pupils are equal, round and reactive to light accommodation. Eye muscles and extraocular movement intact. Sclera is anicteric. Neck; supple no lymphadenopathy, no thyromegaly or bruit Lungs: Normal respiratory rate/effort. Breath sounds bilateral equal and clear Heart: Normal rate. s1s2 normal. No rub or gallop. Extremities: 2+ edema. No varicose veins. hcornic hyperpigmented changed + Neurological: Patient is alert, awake and oriented to person, place and time. No focal deficit. Strength bilateral appropriate and equal Skin: Warm and dry. Normal turgor. No rash. Palpitation: Normal elasticity for age Abdomen: Abdomen is soft. Bowel sounds +. There is no abdominal tenderness, no guarding/rigidity no organomegaly Psych: normal insight and normal affect/mood MSK: no joint tenderness or swelling. Digits and nails normal, no deformity : kidney or bladder not palpable Labs/imaging reviewed. Past medical history, past surgical history, family history, social history, allergy reviewed and noted as below Family hx: no hx of CKD. Rest non-contributory Past Patient History - Infectious Disease Hx of Infectious Diseases: None - Tetanus Immunizations Tetanus Immunization: Unknown - Past Medical History & Family History Past Medical History?: Yes - Past Social History Smoking Status: Former Smoker - CARDIAC Hx Atrial Fibrillation: Yes Hx Congestive Heart Failure: Yes Hx Hypertension: Yes Hx Pacemaker: No - PULMONARY Hx Asthma: Yes Hx Chronic Obstructive Pulmonary Disease (COPD): Yes - NEUROLOGICAL Hx Seizures: No - HEENT Hx HEENT Problems: No - RENAL Hx Chronic Kidney Disease: No - HEMATOLOGICAL/ONCOLOGICAL Hx Human Immunodeficiency Virus (HIV): No - INTEGUMENTARY Hx Dermatological Problems: No - MUSCULOSKELETAL/RHEUMATOLOGICAL Hx Arthritis: Yes - GASTROINTESTINAL Hx Gall Bladder Disease: Yes - GENITOURINARY/GYNECOLOGICAL Hx Sexually Transmitted Disorders: No - PSYCHIATRIC Hx Anxiety: Yes Hx Bipolar Disorder: No Hx Depression: No Hx Schizophrenia: No Hx Substance Use: No - SURGICAL HISTORY Hx Appendectomy: Yes Hx Cholecystectomy: Yes Hx Coronary Artery Bypass Graft: No Hx Coronary Stent: No Hx Tonsillectomy: No - ANESTHESIA Hx Anesthesia: Yes Hx Anesthesia Reactions: No Hx Malignant Hyperthermia: No Meds Allergies/Adverse Reactions: Allergies Allergy/AdvReac Type Severity Reaction Status Date / Time No Known Allergies Allergy Verified 09/20/18 05:38 - Medications Medications: Current Medications Aspirin (Aspirin Chewable) 81 mg PO DAILY [facility] Carvedilol (Coreg) 6.25 mg PO BID [facility] Enoxaparin Sodium (Lovenox) 40 mg SC DAILY [facility] Famotidine (Pepcid) 40 mg PO DAILY [facility] Fluticasone Propionate (Flonase) 2 spr NS DAILY PRN PRN Reason: Nasal congestion Folic Acid (Folic Acid) 1 mg PO DAILY [facility] Furosemide (Lasix) 40 mg IVP BID [facility] Influenza Virus Vaccine (Flucelvax Quad [id number] Syr) 60 mcg IM .ONCE ONE Stop: 09/22/18 10:01 Memantine (Namenda) 10 mg PO DAILY [facility] Results - Vital Signs Recent Vital Signs: Last Vital Signs Temp 97.5 F L 09/20/18 11:30 Pulse 76 09/20/18 11:30 Resp 20 09/20/18 11:30 BP 107/60 09/20/18 11:30 Pulse Ox 98 09/20/18 11:30 - Labs Result Diagrams: 09/20/18 06:12 09/20/18 06:12 Labs: Laboratory Results - last 24 hr 09/20/18 09/20/18 09/20/18 06:06 06:06 06:12 WBC 4.3 L RBC 3.00 L Hgb 9.0 L Hct 26.6 L MCV 88.4 MCH 29.9 MCHC 33.8 RDW 17.9 H Plt Count 176 MPV 8.4 Neut % (Auto) 59.3 Lymph % (Auto) 22.4 Potter % (Auto) 16.0 H Eos % (Auto) 1.5 Baso % (Auto) 0.8 Neut # (Auto) 2.6 Lymph # (Auto) 1.0 Potter # (Auto) 0.7 Eos # (Auto) 0.1 Baso # (Auto) 0.0 PT INR APTT D-Dimer, Quantitative Sodium Potassium Chloride Carbon Dioxide Anion Gap BUN Creatinine Est GFR ( Amer) Est GFR (Non-Af Amer) Random Glucose Calcium Phosphorus Magnesium Total Bilirubin AST ALT Alkaline Phosphatase Ammonia Total Protein Albumin Globulin Albumin/Globulin Ratio Urine Color Yellow Urine Clarity Clear Urine pH 7.0 Ur Specific [place] 1.006 Urine Protein Negative Urine Glucose (UA) Normal Urine Ketones Negative Urine Blood Negative Urine Nitrate Negative Urine Bilirubin Negative Urine Urobilinogen Normal Ur Leukocyte Esterase Neg Urine WBC (Auto) 1 Ur Squamous Epith Cells < 1 Urine Opiates Screen Negative Urine Methadone Screen Negative Ur Barbiturates Screen Negative Ur Phencyclidine Scrn Negative Ur Amphetamines Screen Negative U Benzodiazepines Scrn Negative U Oth Cocaine Metabols Negative U Cannabinoids Screen Negative Alcohol, Quantitative 09/20/18 09/20/18 09/20/18 06:12 06:12 06:12 WBC RBC Hgb Hct MCV MCH MCHC RDW Plt Count MPV Neut % (Auto) Lymph % (Auto) Potter % (Auto) Eos % (Auto) Baso % (Auto) Neut # (Auto) Lymph # (Auto) Potter # (Auto) Eos # (Auto) Baso # (Auto) PT 17.2 H INR 1.6 APTT 32 D-Dimer, Quantitative 1212 H Sodium 132 Potassium 4.0 Chloride 99 Carbon Dioxide 28 Anion Gap 9 L BUN 10 Creatinine 0.7 L Est GFR ( Amer) > 60 Est GFR (Non-Af Amer) > 60 Random Glucose 91 Calcium 7.2 L Phosphorus 2.4 L Magnesium 1.0 L* Total Bilirubin 1.9 H AST 87 H D ALT 17 L Alkaline Phosphatase 151 H Ammonia 18 D Total Protein 8.3 Albumin 2.5 L Globulin 5.8 H Albumin/Globulin Ratio 0.4 L Urine Color Urine Clarity Urine pH Ur Specific [place] Urine Protein Urine Glucose (UA) Urine Ketones Urine Blood Urine Nitrate Urine Bilirubin Urine Urobilinogen Ur Leukocyte Esterase Urine WBC (Auto) Ur Squamous Epith Cells Urine Opiates Screen Urine Methadone Screen Ur Barbiturates Screen Ur Phencyclidine Scrn Ur Amphetamines Screen U Benzodiazepines Scrn U Oth Cocaine Metabols U Cannabinoids Screen Alcohol, Quantitative < 10
[2018-09-20] MEDS ORDERED: Potassium & Sodium Phosphate PO ONE ×2 (17:30→20:00)
[2018-09-20] MEDS: Magnesium Oxide 400 mg Tab UD PO SCH (18:58)
[2018-09-20] MEDS: Magnesium Sulfate 1 gm in D5W 1 GM/100 ML BAG IVPB SCH ×2 (19:20→20:25)
[2018-09-20 20:57] LABS: CREATININE, RANDOM URINE 6.5 mg/dL
[2018-09-21 07:43] LABS: BASO % 0.7 % (0.0-2.0); EOS # 0.1 K/uL (0.0-0.7); EOS % 2.3 % (0.0-4.0); HEMOGLOBIN 9.3 g/dL (12.0-18.0); LYMPH # 1.4 K/uL (1.0-4.3); LYMPH % 35.3 % (20.0-40.0); MEAN CELL VOLUME 88.7 fL (80.0-94.0); MEAN CORPUSCULAR HEMOGLOBIN 28.7 pg (27.0-31.0); MEAN CORPUSCULAR HGB CONC 32.4 g/dL (33.0-37.0); MEAN PLATELET VOLUME 7.7 fL (7.2-11.7); MONO # 0.6 K/uL (0.0-0.8); MONO % 14.9 % (0.0-10.0); NEUT # 1.9 K/uL (1.8-7.0); NEUT % 46.8 % (50.0-75.0); NRBC % 0.2 % (0.0-2.0); RBC 3.24 Mil/uL (4.40-5.90); RED CELL DISTRIBUTION WIDTH 19.1 % (11.5-14.5)
[2018-09-21 08:07] LABS: ALB/GLOB RATIO 0.4 (1.0-2.1); ALBUMIN 2.6 g/dL (3.5-5.0); ALT/SGPT 18 U/L (21-72); AST/SGOT 56 U/L (17-59); BLOOD UREA NITROGEN 9 mg/dL (9-20); CALCIUM 7.4 mg/dl (8.6-10.4); GFR NON-AFRICAN AMERICAN > 60
[2018-09-21] MEDS: Magnesium Sulfate 1 gm in D5W 1 GM/100 ML BAG IVPB SCH ×2 (10:24→11:06)
[2018-09-21] MEDS: Enoxaparin 40 mg Syringe SC SCH (10:25)
[2018-09-21] MEDS: Magnesium Oxide 400 mg Tab UD PO SCH ×2 (10:26→18:22)
[2018-09-21] MEDS ORDERED: Ergocalciferol 50,000 Intl Units Cap PO SCH (11:15)
--- NOTE | 2018-09-21 11:18 | CARD ---
APPROVED REPORT Date of service: 09/20/2018 EKG Measurement Heart [id number] <Conclusion> Sinus rhythm with marked sinus arrhythmia with 1st degree AV block Prolonged QT Abnormal ECG
--- NOTE | 2018-09-21 12:10 | CP.PCM.PN ---
Subjective - Date & Time of Evaluation Date of Evaluation: 09/21/18 Time of Evaluation: 12:08 - Subjective Subjective: Nephrology Consultation Note: Assessment: Stable Hypomagnesemia ? due to renal loss due to diuretics as has high FeMag 35% Hyponatremia Hypophosphatemia anemia hypoalbuminemia A fib dCHF, alcohol and related cirrhosis, splenomegaly morbid obesity Plan Hypertension control with meds as ordered. Maintain hemodynamics stable. Avoid hypotension. Patient not on ACEI/ARB Monitor Input/Output, daily weights and renal function with basic metabolic panel supplement IV mag and added po mag as well added weekly vit D started K supplements added aldactone for portal HTN oral fluid restriction to 1000 mL/day Dose meds/antibiotics for normal GFR. Glycemic control, weight loss Further work up/management as per primary team Thanks for allowing me to participate in care of your patient. Will follow patient with you. Please call if any Qs Dr James Almonte Office: [phone] Chief Complaint; leg pain Reason for consult: Hypomag HPI: Pt is a 47 M with hx of dCHF, A fib, alcohol and related cirrhosis, splenomegaly morbid obesity presented with complaints of leg pain and swelling. being managed for fluid overload. renal consult for low Mag otherwise pt feels usual health not on PPI. no gi fluid loss pt recently admitted with hepatic enceph and sepsis ROS: Cardiovascular: No chest pain. Pulmonary: No shortness of breath Gastrointestinal: denies abdominal pain No nausea. No vomiting. Genitourinary: No pain while urinating. Denies blood in urine. All other negative except as mentioned in HPI Physical Examination: General Appearance: Comfortable, in no acute respiratory distress, co-operative . obese Vitals reviewed and noted as below Head; Atraumatic, normocephalic ENT: no ulcers no thrush. Tongue is midline. Oropharynx: no rash or ulcers. EYES: Pupils are equal, round and reactive to light accommodation. Eye muscles and extraocular movement intact. Sclera is anicteric. Neck; supple no lymphadenopathy, no thyromegaly or bruit Lungs: Normal respiratory rate/effort. Breath sounds bilateral equal and clear Heart: Normal rate. s1s2 normal. No rub or gallop. Extremities: 2+ edema. No varicose veins. chronic hyperpigmented changes + Neurological: Patient is alert, awake and oriented to person, place and time. No focal deficit. Strength bilateral appropriate and equal Skin: Warm and dry. Normal turgor. No rash. Palpitation: Normal elasticity for age Abdomen: Abdomen is soft. Bowel sounds +. There is no abdominal tenderness, no guarding/rigidity no organomegaly Psych: normal insight and normal affect/mood MSK: no joint tenderness or swelling. Digits and nails normal, no deformity : kidney or bladder not palpable Labs/imaging reviewed. Past medical history, past surgical history, family history, social history, allergy reviewed and noted as below Family hx: no hx of CKD. Rest non-contributory Objective - Vital Signs/Intake and Output Vital Signs (last 24 hours): Temp Pulse Resp BP Pulse Ox 97.3 F L 72 20 150/70 97 09/21/18 07:46 09/21/18 07:46 09/21/18 07:46 09/21/18 10:24 09/21/18 07:46 Intake and Output: 09/21/18 09/21/18 06:59 18:59 Intake Total 800 Output Total 2200 Balance -1400 - Medications Medications: Current Medications Aspirin (Aspirin Chewable) 81 mg PO DAILY [facility] Last Admin: 09/21/18 10:26 Dose: 81 mg Carvedilol (Coreg) 6.25 mg PO BID [facility] Last Admin: 09/21/18 10:26 Dose: 6.25 mg Enoxaparin Sodium (Lovenox) 40 mg SC DAILY [facility] Last Admin: 09/21/18 10:25 Dose: 40 mg Ergocalciferol (Drisdol 50,000 Intl Units Cap) 1 cap PO Q7D [facility] Famotidine (Pepcid) 40 mg PO DAILY [facility] Last Admin: 09/21/18 10:26 Dose: 40 mg Fluticasone Propionate (Flonase) 2 spr NS DAILY PRN PRN Reason: Nasal congestion Folic Acid (Folic Acid) 1 mg PO DAILY [facility] Last Admin: 09/21/18 10:18 Dose: 1 mg Furosemide (Lasix) 40 mg IVP DAILY [facility] Last Admin: 09/21/18 10:24 Dose: 40 mg Potassium Chloride (Potassium Chloride 20 Meq/100 Ml) 20 meq in 100 mls @ 50 mls/hr IVPB Q2H [facility] Stop: 09/21/18 12:59 Last Admin: 09/21/18 10:25 Dose: 50 mls/hr Influenza Virus Vaccine (Flucelvax Quad [id number] Syr) 60 mcg IM .ONCE ONE Stop: 09/22/18 10:01 Magnesium Oxide (Mag-Ox) 800 mg PO BID [facility] Last Admin: 09/21/18 10:26 Dose: 800 mg Magnesium Sulfate (Magnesium Sulfate 4 Gm/100 Ml H2o) 4 gm IVPB ONCE ONE Stop: 09/21/18 10:46 Memantine (Namenda) 10 mg PO DAILY [facility] Last Admin: 09/21/18 10:25 Dose: 10 mg Potassium Chloride (Potassium Chloride Oral Soln) 40 meq PO DAILY [facility] Stop: 09/26/18 14:01 Spironolactone (Aldactone) 50 mg PO DAILY [facility] Last Admin: 09/21/18 11:07 Dose: 50 mg - Labs Labs: 09/21/18 07:34 09/21/18 07:34 PT 17.2 SECONDS (9.7-12.2) H 09/20/18 06:12 INR 1.6 09/20/18 06:12 APTT 32 SECONDS (21-34) 09/20/18 06:12
[2018-09-21] MEDS: Potassium Chloride 20 mEq/15 ml LIQ UD PO SCH (13:50)
--- NOTE | 2018-09-21 14:59 | CP.PCM.PN ---
Subjective - Date & Time of Evaluation Date of Evaluation: 09/21/18 Time of Evaluation: 14:59 Objective - Vital Signs/Intake and Output Vital Signs (last 24 hours): Temp Pulse Resp BP Pulse Ox 97.3 F L 72 20 150/70 97 09/21/18 07:46 09/21/18 07:46 09/21/18 07:46 09/21/18 10:24 09/21/18 07:46 Intake and Output: 09/21/18 09/21/18 06:59 18:59 Intake Total 800 400 Output Total 2200 3000 Balance -1400 -2600 - Medications Medications: Current Medications Aspirin (Aspirin Chewable) 81 mg PO DAILY [facility] Last Admin: 09/21/18 10:26 Dose: 81 mg Carvedilol (Coreg) 6.25 mg PO BID [facility] Last Admin: 09/21/18 10:26 Dose: 6.25 mg Enoxaparin Sodium (Lovenox) 40 mg SC DAILY [facility] Last Admin: 09/21/18 10:25 Dose: 40 mg Ergocalciferol (Drisdol 50,000 Intl Units Cap) 1 cap PO Q7D [facility] Last Admin: 09/21/18 12:40 Dose: 1 cap Famotidine (Pepcid) 40 mg PO DAILY [facility] Last Admin: 09/21/18 10:26 Dose: 40 mg Fluticasone Propionate (Flonase) 2 spr NS DAILY PRN PRN Reason: Nasal congestion Folic Acid (Folic Acid) 1 mg PO DAILY [facility] Last Admin: 09/21/18 10:18 Dose: 1 mg Furosemide (Lasix) 40 mg IVP DAILY [facility] Last Admin: 09/21/18 10:24 Dose: 40 mg Influenza Virus Vaccine (Flucelvax Quad [id number] Syr) 60 mcg IM .ONCE ONE Stop: 09/22/18 10:01 Lidocaine (Lidoderm) 1 ea TD DAILY [facility] Magnesium Oxide (Mag-Ox) 800 mg PO BID [facility] Last Admin: 09/21/18 10:26 Dose: 800 mg Memantine (Namenda) 10 mg PO DAILY [facility] Last Admin: 09/21/18 10:25 Dose: 10 mg Potassium Chloride (Potassium Chloride Oral Soln) 40 meq PO DAILY [facility] Stop: 09/26/18 14:01 Last Admin: 09/21/18 13:50 Dose: 40 meq Spironolactone (Aldactone) 50 mg PO DAILY [facility] Last Admin: 09/21/18 11:07 Dose: 50 mg - Labs Labs: 09/21/18 07:34 09/21/18 07:34 PT 17.2 SECONDS (9.7-12.2) H 09/20/18 06:12 INR 1.6 09/20/18 06:12 APTT 32 SECONDS (21-34) 09/20/18 06:12
[2018-09-21] MEDS: Lidocaine 5% Patch TD SCH (15:15)
[2018-09-22 08:17] LABS: BLOOD UREA NITROGEN 12 mg/dL (9-20); CALCIUM 7.9 mg/dl (8.6-10.4); GFR NON-AFRICAN AMERICAN > 60
[2018-09-22] MEDS ORDERED: Pneumococcal 23-Valent Vaccine IM ONE ×2 (10:00→14:02)
[2018-09-22] MEDS ORDERED: Influenza Vaccine 60 mcg/0.5 mL SYR (4YR UP) IM ONE ×2 (10:00→14:30)
[2018-09-22] MEDS: Lidocaine 5% Patch TD SCH (10:05)
[2018-09-22] MEDS: Potassium Chloride 20 mEq/15 ml LIQ UD PO SCH (10:06)
[2018-09-22] MEDS: Enoxaparin 40 mg Syringe SC SCH (10:06)
[2018-09-22] MEDS: Magnesium Oxide 400 mg Tab UD PO SCH ×3 (10:07→17:51)
[2018-09-22] MEDS: Magnesium Sulfate 1 gm in D5W 1 GM/100 ML BAG IVPB SCH ×4 (13:30→17:16)
--- NOTE | 2018-09-22 14:12 | CP.PCM.PN ---
Subjective - Date & Time of Evaluation Date of Evaluation: 09/22/18 Time of Evaluation: 14:11 - Subjective Subjective: Nephrology Consultation Note: Assessment: Stable Hypomagnesemia ? due to renal loss due to diuretics as has high FeMag 35% Hyponatremia Hypophosphatemia anemia hypoalbuminemia A fib dCHF, alcohol and related cirrhosis, splenomegaly morbid obesity Plan Hypertension control with meds as ordered. Maintain hemodynamics stable. Avoid hypotension. Monitor Input/Output, daily weights and renal function with basic metabolic panel supplement Mg, K added weekly vit D added aldactone for portal HTN oral fluid restriction to 1000 mL/day Dose meds/antibiotics for normal GFR. Glycemic control, weight loss Further work up/management as per primary team Thanks for allowing me to participate in care of your patient. Will follow patient with you. Please call if any Qs Dr James Almonte Office: [phone] Chief Complaint; leg pain Reason for consult: Hypomag HPI: Pt is a 47 M with hx of dCHF, A fib, alcohol and related cirrhosis, splenomegaly morbid obesity presented with complaints of leg pain and swelling. being managed for fluid overload. renal consult for low Mag otherwise pt feels usual health not on PPI. no gi fluid loss pt recently admitted with hepatic enceph and sepsis ROS: Cardiovascular: No chest pain. Pulmonary: No shortness of breath Gastrointestinal: denies abdominal pain No nausea. No vomiting. Genitourinary: No pain while urinating. Denies blood in urine. All other negative except as mentioned in HPI Physical Examination: General Appearance: Comfortable, in no acute respiratory distress, co-operative . obese Vitals reviewed and noted as below Head; Atraumatic, normocephalic ENT: no ulcers no thrush. Tongue is midline. Oropharynx: no rash or ulcers. EYES: Pupils are equal, round and reactive to light accommodation. Eye muscles and extraocular movement intact. Sclera is anicteric. Neck; supple no lymphadenopathy, no thyromegaly or bruit Lungs: Normal respiratory rate/effort. Breath sounds bilateral equal and clear Heart: Normal rate. s1s2 normal. No rub or gallop. Extremities: 2+ edema. No varicose veins. chronic hyperpigmented changes + Neurological: Patient is alert, awake and oriented to person, place and time. No focal deficit. Strength bilateral appropriate and equal Skin: Warm and dry. Normal turgor. No rash. Palpitation: Normal elasticity for age Abdomen: Abdomen is soft. Bowel sounds +. There is no abdominal tenderness, no guarding/rigidity no organomegaly Psych: normal insight and normal affect/mood MSK: no joint tenderness or swelling. Digits and nails normal, no deformity : kidney or bladder not palpable Labs/imaging reviewed. Past medical history, past surgical history, family history, social history, allergy reviewed and noted as below Family hx: no hx of CKD. Rest non-contributory Objective - Vital Signs/Intake and Output Vital Signs (last 24 hours): Temp Pulse Resp BP Pulse Ox 98 F 74 20 105/70 98 09/22/18 07:04 09/22/18 07:04 09/22/18 07:04 09/22/18 10:08 09/22/18 07:04 Intake and Output: 09/22/18 09/22/18 06:59 18:59 Intake Total 800 Output Total 1500 Balance -700 - Medications Medications: Current Medications Aspirin (Aspirin Chewable) 81 mg PO DAILY [facility] Last Admin: 09/22/18 10:07 Dose: 81 mg Carvedilol (Coreg) 6.25 mg PO BID [facility] Last Admin: 09/22/18 10:07 Dose: 6.25 mg Enoxaparin Sodium (Lovenox) 40 mg SC DAILY [facility] Last Admin: 09/22/18 10:06 Dose: 40 mg Ergocalciferol (Drisdol 50,000 Intl Units Cap) 1 cap PO Q7D [facility] Last Admin: 09/21/18 12:40 Dose: 1 cap Famotidine (Pepcid) 40 mg PO DAILY [facility] Last Admin: 09/22/18 10:07 Dose: 40 mg Fluticasone Propionate (Flonase) 2 spr NS DAILY PRN PRN Reason: Nasal congestion Folic Acid (Folic Acid) 1 mg PO DAILY [facility] Last Admin: 09/22/18 10:07 Dose: 1 mg Furosemide (Lasix) 40 mg IVP DAILY [facility] Last Admin: 09/22/18 10:08 Dose: 40 mg Magnesium Sulfate/Dextrose (Magnesium Sulfate 1 Gm/100 Ml D5w) 1 gm in 100 mls @ 200 mls/hr IVPB Q30M [facility] Stop: 09/22/18 14:29 Last Admin: 09/22/18 13:31 Dose: 200 mls/hr Lidocaine (Lidoderm) 1 ea TD DAILY [facility] Last Admin: 09/22/18 10:05 Dose: 1 ea Magnesium Oxide (Mag-Ox) 800 mg PO TID [facility] Last Admin: 09/22/18 13:31 Dose: 800 mg Memantine (Namenda) 10 mg PO DAILY [facility] Last Admin: 09/22/18 10:07 Dose: 10 mg Pneumococcal Polyvalent Vaccine (Pneumovax 23 Vaccine) 0.5 ml IM .ONCE ONE Stop: 09/22/18 14:03 Potassium Chloride (Potassium Chloride Oral Soln) 40 meq PO DAILY [facility] Stop: 09/26/18 14:01 Last Admin: 09/22/18 10:06 Dose: 40 meq Potassium Chloride (K-Dur 20 Meq Er Tab) 40 meq PO QPM [facility] Stop: 09/22/18 18:01 Spironolactone (Aldactone) 50 mg PO DAILY [facility] Last Admin: 09/22/18 10:07 Dose: 50 mg - Labs Labs: 09/21/18 07:34 09/22/18 07:51 PT 17.2 SECONDS (9.7-12.2) H 09/20/18 06:12 INR 1.6 09/20/18 06:12 APTT 32 SECONDS (21-34) 09/20/18 06:12
--- NOTE | 2018-09-22 16:11 | CP.PCM.PN ---
Subjective - Date & Time of Evaluation Date of Evaluation: 09/22/18 Time of Evaluation: 16:11 - Subjective Subjective: alert, awake, no sob or chest pains,NAD. Objective - Vital Signs/Intake and Output Vital Signs (last 24 hours): Temp Pulse Resp BP Pulse Ox 98 F 74 20 105/70 98 09/22/18 07:04 09/22/18 07:04 09/22/18 07:04 09/22/18 10:08 09/22/18 07:04 Intake and Output: 09/22/18 09/22/18 06:59 18:59 Intake Total 800 Output Total 1500 Balance -700 - Medications Medications: Current Medications Aspirin (Aspirin Chewable) 81 mg PO DAILY [facility] Last Admin: 09/22/18 10:07 Dose: 81 mg Carvedilol (Coreg) 6.25 mg PO BID [facility] Last Admin: 09/22/18 10:07 Dose: 6.25 mg Enoxaparin Sodium (Lovenox) 40 mg SC DAILY [facility] Last Admin: 09/22/18 10:06 Dose: 40 mg Ergocalciferol (Drisdol 50,000 Intl Units Cap) 1 cap PO Q7D [facility] Last Admin: 09/21/18 12:40 Dose: 1 cap Famotidine (Pepcid) 40 mg PO DAILY [facility] Last Admin: 09/22/18 10:07 Dose: 40 mg Fluticasone Propionate (Flonase) 2 spr NS DAILY PRN PRN Reason: Nasal congestion Folic Acid (Folic Acid) 1 mg PO DAILY [facility] Last Admin: 09/22/18 10:07 Dose: 1 mg Furosemide (Lasix) 40 mg IVP DAILY [facility] Last Admin: 09/22/18 10:08 Dose: 40 mg Lidocaine (Lidoderm) 1 ea TD DAILY [facility] Last Admin: 09/22/18 10:05 Dose: 1 ea Magnesium Oxide (Mag-Ox) 800 mg PO TID [facility] Last Admin: 09/22/18 13:31 Dose: 800 mg Memantine (Namenda) 10 mg PO DAILY [facility] Last Admin: 09/22/18 10:07 Dose: 10 mg Potassium Chloride (Potassium Chloride Oral Soln) 40 meq PO DAILY [facility] Stop: 09/26/18 14:01 Last Admin: 09/22/18 10:06 Dose: 40 meq Potassium Chloride (K-Dur 20 Meq Er Tab) 40 meq PO QPM [facility] Stop: 09/22/18 18:01 Spironolactone (Aldactone) 50 mg PO DAILY [facility] Last Admin: 09/22/18 10:07 Dose: 50 mg - Labs Labs: 09/21/18 07:34 09/22/18 07:51 PT 17.2 SECONDS (9.7-12.2) H 09/20/18 06:12 INR 1.6 09/20/18 06:12 APTT 32 SECONDS (21-34) 09/20/18 06:12 Assessment and Plan - Assessment and Plan (Free Text) Assessment: Patient admitted with leg pain, hypomagnesimia, seen and examined. Alert and orientedx3, no acute distress. Discussed with DR Almonte and DR Liu, plan to discharge home today.Advised to follow up in the office in 1 week for follow up bloodworks.
--- NOTE | 2018-09-22 17:45 | CP.PCM.DIS ---
Provider - Provider Date of Admission: 09/20/18 10:09 Attending physician: Carlos Liu MD Consults: 09/20/18 12:07 Nursing Referral for Wound Care Routine Comment: Physician Instructions: Reason For Exam: BLE SWELLING W/ WEAKNESS 09/20/18 15:21 Physician Consult Routine Comment: Consulting Provider: James Almonte Consulting Physician: James Almonte Reason for Consult: chf, hypomagnesemia [place] [facility] Course - Lab Results Lab Results: Most Recent Lab Values WBC 4.0 K/uL (4.8-10.8) L 09/21/18 07:34 RBC 3.24 Mil/uL (4.40-5.90) L 09/21/18 07:34 Hgb 9.3 g/dL (12.0-18.0) L 09/21/18 07:34 Hct 28.7 % (35.0-51.0) L 09/21/18 07:34 MCV 88.7 fL (80.0-94.0) 09/21/18 07:34 MCH 28.7 pg (27.0-31.0) 09/21/18 07:34 MCHC 32.4 g/dL (33.0-37.0) L 09/21/18 07:34 RDW 19.1 % (11.5-14.5) H 09/21/18 07:34 Plt Count 188 K/uL (130-400) 09/21/18 07:34 MPV 7.7 fL (7.2-11.7) 09/21/18 07:34 Neut % (Auto) 46.8 % (50.0-75.0) L 09/21/18 07:34 Lymph % (Auto) 35.3 % (20.0-40.0) 09/21/18 07:34 [place] % (Auto) 14.9 % (0.0-10.0) H 09/21/18 07:34 Eos % (Auto) 2.3 % (0.0-4.0) 09/21/18 07:34 Baso % (Auto) 0.7 % (0.0-2.0) 09/21/18 07:34 Neut # (Auto) 1.9 K/uL (1.8-7.0) 09/21/18 07:34 Lymph # (Auto) 1.4 K/uL (1.0-4.3) 09/21/18 07:34 [place] # (Auto) 0.6 K/uL (0.0-0.8) 09/21/18 07:34 Eos # (Auto) 0.1 K/uL (0.0-0.7) 09/21/18 07:34 Baso # (Auto) 0.0 K/uL (0.0-0.2) 09/21/18 07:34 PT 17.2 SECONDS (9.7-12.2) H 09/20/18 06:12 INR 1.6 09/20/18 06:12 APTT 32 SECONDS (21-34) 09/20/18 06:12 D-Dimer, Quantitative 1212 ng/mlDDU (0-243) H 09/20/18 06:12 Sodium 134 mmol/L (132-148) 09/22/18 07:51 Potassium 3.3 mmol/L (3.6-5.2) L 09/22/18 07:51 Chloride 96 mmol/L (98-107) L 09/22/18 07:51 Carbon Dioxide 33 mmol/L (22-30) H 09/22/18 07:51 Anion Gap 8 (10-20) L 09/22/18 07:51 BUN 12 mg/dL (9-20) 09/22/18 07:51 Creatinine 0.7 mg/dL (0.8-1.5) L 09/22/18 07:51 Est GFR ( Amer) > 60 09/22/18 07:51 Est GFR (Non-Af Amer) > 60 09/22/18 07:51 POC Glucose (mg/dL) 112 mg/dL (65-110) H 09/21/18 11:14 Random Glucose 113 mg/dL (75-110) H D 09/22/18 07:51 Calcium 7.9 mg/dl (8.6-10.4) L 09/22/18 07:51 Phosphorus 3.9 mg/dL (2.5-4.5) 09/21/18 07:34 Magnesium 1.2 mg/dL (1.6-2.3) L 09/22/18 07:51 Total Bilirubin 2.0 mg/dL (0.2-1.3) H 09/21/18 07:34 AST 56 U/L (17-59) 09/21/18 07:34 ALT 18 U/L (21-72) L 09/21/18 07:34 Alkaline Phosphatase 142 U/L (38-126) H 09/21/18 07:34 Ammonia 18 umol/L (9-33) D 09/20/18 06:12 Total Protein 8.6 g/dL (6.3-8.3) H 09/21/18 07:34 Albumin 2.6 g/dL (3.5-5.0) L 09/21/18 07:34 Globulin 6.0 gm/dL (2.2-3.9) H 09/21/18 07:34 Albumin/Globulin Ratio 0.4 (1.0-2.1) L 09/21/18 07:34 25-OH Vitamin D Total 20.6 NG/ML (30.0-100.0) L 09/21/18 07:34 Urine Color Yellow (YELLOW) 09/20/18 06:06 Urine Clarity Clear (Clear) 09/20/18 06:06 Urine pH 7.0 (5.0-8.0) 09/20/18 06:06 Ur Specific Pep 1.006 (1.003-1.030) 09/20/18 06:06 Urine Protein Negative mg/dL (NEGATIVE) 09/20/18 06:06 Urine Glucose (UA) Normal mg/dL (Normal) 09/20/18 06:06 Urine Ketones Negative mg/dL (NEGATIVE) 09/20/18 06:06 Urine Blood Negative (NEGATIVE) 09/20/18 06:06 Urine Nitrate Negative (NEGATIVE) 09/20/18 06:06 Urine Bilirubin Negative (NEGATIVE) 09/20/18 06:06 Urine Urobilinogen Normal mg/dL (0.2-1.0) 09/20/18 06:06 Ur Leukocyte Esterase Neg [place]/uL (Negative) 09/20/18 06:06 Urine WBC (Auto) 1 /hpf (0-5) 09/20/18 06:06 Ur Squamous Epith Cells < 1 /hpf (0-5) 09/20/18 06:06 Urine Osmolality 235 mosm/kg (300-1000) L 09/20/18 20:26 Ur Random Creatinine 6 mg/dL (20-320) L 09/20/18 20:26 U Random Total Protein See note mg/g creat (22-128) 09/20/18 20:26 Ur Random Sodium 99 mmol/L 09/20/18 20:26 Urine Total Volume <0.2 mg/dL 09/20/18 20:26 Microalb/Creat Ratio Note (<30) 09/20/18 20:26 Urine Magnesium 3.2 mg/dL 09/20/18 20:26 Urine Opiates Screen Negative (NEGATIVE) 09/20/18 06:06 Urine Methadone Screen Negative (NEGATIVE) 09/20/18 06:06 Ur Barbiturates Screen Negative (NEGATIVE) 09/20/18 06:06 Ur Phencyclidine Scrn Negative (NEGATIVE) 09/20/18 06:06 Ur Amphetamines Screen Negative (NEGATIVE) 09/20/18 06:06 U Benzodiazepines Scrn Negative (NEGATIVE) 09/20/18 06:06 U Oth Cocaine Metabols Negative (NEGATIVE) 09/20/18 06:06 U Cannabinoids Screen Negative (NEGATIVE) 09/20/18 06:06 Alcohol, Quantitative < 10 mg/dl (0-10) 09/20/18 06:12 Discharge Plan - Discharge Medications Prescriptions: Spironolactone [Aldactone] 50 mg PO DAILY #30 tab Lidocaine 5% [Lidoderm] 1 ea TD DAILY #30 patch Magnesium Oxide [Mag-Ox] 800 mg PO TID #40 tab - Follow Up Plan Condition: FAIR Disposition: HOME/ ROUTINE Instructions: Anemia Caused by Low Iron, Adult (DC), Lidocaine (Topical), Magnesium Oxide, Spironolactone, Low Magnesium Level (DC) Additional Instructions: blood works to be repeated in the office, f/u mg, bmp follow up with PMD in 1 week Referrals: Carlos Liu MD [Staff Provider] -
[2018-09-22 17:46] VITALS: BP 104/62; PULSE 64; TEMP 97.3; O2SAT 97
[2018-09-22] MEDS ORDERED: Magnesium Sulfate 1 gm in D5W 1 GM/100 ML BAG IVPB SCH (18:00)
[2018-09-22] MEDS ORDERED: Potassium Chloride 20 mEq ER Tab PO SCH (18:00)
== END 2018-09-22 18:33 | disposition home or self-care (01) ==
LOC: C.ER 04:41 → C.3T 10:09
PROVIDERS: ADMIT Internal Medicine Critical Care Medicine; ATTEND Internal Medicine Critical Care Medicine
DX: D64.9 Anemia, unspecified (principal); M79.605 Pain in left leg; E83.42 Hypomagnesemia; E87.1 Hypo-osmolality and hyponatremia; E83.39 Other disorders of phosphorus metabolism; E88.09 Other disorders of plasma-protein metabolism, not elsewhere classified; I48.91 Unspecified atrial fibrillation; I11.0 Hypertensive heart disease with heart failure; I50.9 Heart failure, unspecified; K70.30 Alcoholic cirrhosis of liver without ascites; F10.21 Alcohol dependence, in remission; R16.1 Splenomegaly, not elsewhere classified; E66.01 Morbid (severe) obesity due to excess calories; J44.9 Chronic obstructive pulmonary disease, unspecified; Z87.891 Personal history of nicotine dependence; Z90.49 Acquired absence of other specified parts of digestive tract; Z79.82 Long term (current) use of aspirin; Z79.899 Other long term (current) drug therapy
CPT/HCPCS: 36415; 78582; 80048; 80053; 81001; 82043; 82140; 82306; 82570; 82948; 83735; 83935; 84100; 84156; 84300; 85025; 85378; 85610; 85730; 90674; 93005; 93970; 96361; 96365; 96366; 96372; 96375; 96376; 97116; 97161; 97165; 97530; 99285; A9540; A9558; G0008; G0378; G0480; G8978; G8979; G8987; G8988; J1650; J1940; J3475; J3480

== ENCOUNTER 2018-10-02 18:16 | Inpatient (IN) | payer MEDICARE, OTHER ==
[2018-10-02 18:17] VITALS: BMI 48.0
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
[2018-10-02 20:01] LABS: SQUAMOUS EPITHIAL 3 /hpf (0-5); URINE BACTERIA RARE (<OCC); URINE BILIRUBIN NEGATIVE (NEGATIVE); URINE BLOOD NEGATIVE (NEGATIVE); URINE CLARITY Clear (Clear); URINE COLOR Yellow (YELLOW); URINE GLUCOSE (UA) NORMAL (Normal); URINE LEUKOCYTE ESTERASE NEG Leu/uL (Negative); URINE PROTEIN NEGATIVE (NEGATIVE)
[2018-10-02 20:13] LABS: BARBITURATES, UR NEGATIVE (NEGATIVE); BENZODIAZEPINES, UR NEGATIVE (NEGATIVE); OPIATES, UR NEGATIVE (NEGATIVE); PHENCYCLIDINE, UR NEGATIVE (NEGATIVE)
[2018-10-02 20:31] LABS: BASO % 0.7 % (0.0-2.0); EOS # 0.1 K/uL (0.0-0.7); EOS % 3.7 % (0.0-4.0); HEMOGLOBIN 11.2 g/dL (12.0-18.0); LYMPH # 1.7 K/uL (1.0-4.3); MEAN CORPUSCULAR HGB CONC 32.9 g/dL (33.0-37.0); MEAN PLATELET VOLUME 7.8 fL (7.2-11.7); MONO # 0.5 K/uL (0.0-0.8); MONO % 13.7 % (0.0-10.0); NEUT # 1.4 K/uL (1.8-7.0); NEUT % 36.9 % (50.0-75.0); NRBC % 0.2 % (0.0-2.0); RBC 3.72 Mil/uL (4.40-5.90); RED CELL DISTRIBUTION WIDTH 22.7 % (11.5-14.5); WHITE BLOOD COUNT 3.8 K/uL (4.8-10.8)
[2018-10-02 20:32] LABS: MEAN CELL VOLUME 91.2 fL (80.0-94.0)
[2018-10-02 20:35] LABS: INR 1.6
[2018-10-02 20:46] LABS: ALB/GLOB RATIO 0.5 (1.0-2.1); ALT/SGPT 15 U/L (21-72); AST/SGOT 55 U/L (17-59); BLOOD UREA NITROGEN 10 mg/dL (9-20); CALCIUM 8.8 mg/dl (8.6-10.4); GFR NON-AFRICAN AMERICAN > 60
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
[2018-10-03] MEDS: Potassium Chloride 20 mEq ER Tab PO SCH (09:25)
[2018-10-03] MEDS: Pantoprazole 40 mg EC Tab PO SCH (09:25)
[2018-10-03] MEDS: Magnesium Oxide 400 mg Tab UD PO SCH ×3 (09:25→17:33)
[2018-10-03] MEDS: Folic Acid 1 MG, Thiamine 100 MG, Multivitamin (MVI) 10 ML in Dextrose 5% In Water 1,00... IV SCH ×2 (09:30→11:47)
[2018-10-03] MEDS: Cilostazol 100 mg Tab UD PO SCH ×3 (09:32→21:21)
[2018-10-03] MEDS ORDERED: Enoxaparin 40 mg Syringe SC SCH (10:00)
--- NOTE | 2018-10-03 10:35 | RAD ---
HISTORY: sob COMPARISON: Chest x-ray performed 09/15/18 TECHNIQUE: Chest, one view. FINDINGS: Examination limited by habitus. LUNGS: Probable mild pulmonary venous congestion. No focal consolidation. Please note that chest x-ray has limited sensitivity for the detection of pulmonary masses. PLEURA: No significant pleural effusion identified. No definite pneumothorax . CARDIOVASCULAR: Cardiomegaly. OSSEOUS STRUCTURES: No acute osseous abnormality identified. VISUALIZED UPPER ABDOMEN: Unremarkable. OTHER FINDINGS: None. IMPRESSION: Cardiomegaly. Probable mild pulmonary venous congestion. Correlate clinically.
--- NOTE | 2018-10-03 14:29 | CP.PCM.HP ---
Present on Admission - Present on Admission Any Indicators Present on Admission: No Past Patient History - Infectious Disease Hx of Infectious Diseases: None - Tetanus Immunizations Tetanus Immunization: Unknown - Past Medical History & Family History Past Medical History?: Yes - Past Social History Smoking Status: Never Smoked - CARDIAC Hx Cardiac Disorders: Yes Hx Atrial Fibrillation: Yes Hx Cardia Arrhythmia: Yes Hx Congestive Heart Failure: Yes Hx Hypertension: Yes Hx Pacemaker: No Hx Peripheral Vascular Disease: Yes - PULMONARY Hx Respiratory Disorders: Yes Hx Asthma: Yes Hx Chronic Obstructive Pulmonary Disease (COPD): Yes Hx Pneumonia: Yes - NEUROLOGICAL Hx Neurological Disorder: Yes Hx Transient Ischemic Attacks (TIA): Yes - HEENT Hx HEENT Problems: No - RENAL Hx Chronic Kidney Disease: No - ENDOCRINE/METABOLIC Hx Endocrine Disorders: No Hx Diabetes Mellitus Type 1: Yes Hx Diabetes Mellitus Type 2: Yes (denies) - HEMATOLOGICAL/ONCOLOGICAL Hx Blood Disorders: Yes Hx Anemia: Yes Hx Human Immunodeficiency Virus (HIV): No - INTEGUMENTARY Hx Dermatological Problems: No - MUSCULOSKELETAL/RHEUMATOLOGICAL Hx Musculoskeletal Disorders: Yes Hx Falls: Yes (due to ETOH) - GASTROINTESTINAL Hx Gastrointestinal Disorders: Yes Hx Gall Bladder Disease: Yes Hx Pancreatitis: Yes - GENITOURINARY/GYNECOLOGICAL Hx Genitourinary Disorders: No Hx Sexually Transmitted Disorders: No - PSYCHIATRIC Hx Substance Use: No - SURGICAL HISTORY Hx Surgeries: Yes Hx Appendectomy: Yes Hx Cholecystectomy: Yes Hx Coronary Artery Bypass Graft: No Hx Coronary Stent: No Hx Tonsillectomy: No - ANESTHESIA Hx Anesthesia: Yes Hx Anesthesia Reactions: No Hx Malignant Hyperthermia: No Meds Allergies/Adverse Reactions: Allergies Allergy/AdvReac Type Severity Reaction Status Date / Time No Known Allergies Allergy Verified 09/20/18 05:38 Physical Exam - Constitutional Appears: Well - Head Exam Head Exam: ATRAUMATIC, NORMAL INSPECTION, NORMOCEPHALIC - Eye Exam Eye Exam: EOMI, Normal appearance, PERRL Pupil Exam: NORMAL ACCOMODATION, PERRL - ENT Exam ENT Exam: Mucous Membranes Moist, Normal Exam - Neck Exam Neck exam: Positive for: Normal Inspection - Respiratory Exam Respiratory Exam: Decreased Breath Sounds - Cardiovascular Exam Cardiovascular Exam: REGULAR RHYTHM, +S1, +S2 - GI/Abdominal Exam GI & Abdominal Exam: Diminished Bowel Sounds, Soft - Rectal Exam Rectal Exam: Deferred Results - Vital Signs Recent Vital Signs: Last Vital Signs Temp 98.1 F 10/03/18 07:00 Pulse 67 10/03/18 07:00 Resp 20 10/03/18 07:00 BP 101/62 10/03/18 07:00 Pulse Ox 97 10/03/18 07:00 - Labs Result Diagrams: 10/04/18 07:35 10/04/18 07:35 Labs: Laboratory Results - last 24 hr 10/02/18 10/02/18 10/02/18 19:46 19:46 20:25 WBC 3.8 L RBC 3.72 L Hgb 11.2 L Hct 33.9 L MCV 91.2 D MCH 30.0 MCHC 32.9 L RDW 22.7 H Plt Count 230 MPV 7.8 Neut % (Auto) 36.9 L Lymph % (Auto) 45.0 H Hanson % (Auto) 13.7 H Eos % (Auto) 3.7 Baso % (Auto) 0.7 Neut # (Auto) 1.4 L Lymph # (Auto) 1.7 Hanson # (Auto) 0.5 Eos # (Auto) 0.1 Baso # (Auto) 0.0 PT INR Sodium Potassium Chloride Carbon Dioxide Anion Gap BUN Creatinine Est GFR ( Amer) Est GFR (Non-Af Amer) Random Glucose Calcium Phosphorus Magnesium Total Bilirubin AST ALT Alkaline Phosphatase Ammonia NT-Pro-B Natriuret Pep Total Protein Albumin Globulin Albumin/Globulin Ratio Urine Color Yellow Urine Clarity Clear Urine pH 6.0 Ur Specific [place] 1.017 Urine Protein Negative Urine Glucose (UA) Normal Urine Ketones Negative Urine Blood Negative Urine Nitrate Negative Urine Bilirubin Negative Urine Urobilinogen 2.0 Ur Leukocyte Esterase Neg Urine WBC (Auto) 1 Urine RBC (Auto) 1 Ur Squamous Epith Cells 3 Urine Bacteria Rare Urine Opiates Screen Negative Urine Methadone Screen Negative Ur Barbiturates Screen Negative Ur Phencyclidine Scrn Negative Ur Amphetamines Screen Negative U Benzodiazepines Scrn Negative U Oth Cocaine Metabols Negative U Cannabinoids Screen Negative Alcohol, Quantitative 10/02/18 10/02/18 10/02/18 20:25 20:25 20:25 WBC RBC Hgb Hct MCV MCH MCHC RDW Plt Count MPV Neut % (Auto) Lymph % (Auto) Hanson % (Auto) Eos % (Auto) Baso % (Auto) Neut # (Auto) Lymph # (Auto) Hanson # (Auto) Eos # (Auto) Baso # (Auto) PT 17.0 H INR 1.6 Sodium 136 Potassium 4.1 Chloride 105 Carbon Dioxide 26 Anion Gap 10 BUN 10 Creatinine 0.9 Est GFR ( Amer) > 60 Est GFR (Non-Af Amer) > 60 Random Glucose 93 Calcium 8.8 Phosphorus 4.2 Magnesium 1.4 L Total Bilirubin 1.0 AST 55 ALT 15 L Alkaline Phosphatase 153 H Ammonia 100 H D NT-Pro-B Natriuret Pep Total Protein 9.5 H Albumin 3.0 L Globulin 6.5 H Albumin/Globulin Ratio 0.5 L Urine Color Urine Clarity Urine pH Ur Specific [place] Urine Protein Urine Glucose (UA) Urine Ketones Urine Blood Urine Nitrate Urine Bilirubin Urine Urobilinogen Ur Leukocyte Esterase Urine WBC (Auto) Urine RBC (Auto) Ur Squamous Epith Cells Urine Bacteria Urine Opiates Screen Urine Methadone Screen Ur Barbiturates Screen Ur Phencyclidine Scrn Ur Amphetamines Screen U Benzodiazepines Scrn U Oth Cocaine Metabols U Cannabinoids Screen Alcohol, Quantitative < 10 10/02/18 23:01 WBC RBC Hgb Hct MCV MCH MCHC RDW Plt Count MPV Neut % (Auto) Lymph % (Auto) Hans[place] % (Auto) Eos % (Auto) Baso % (Auto) Neut # (Auto) Lymph # (Auto) Hans[place] # (Auto) Eos # (Auto) Baso # (Auto) PT INR Sodium Potassium Chloride Carbon Dioxide Anion Gap BUN Creatinine Est GFR ( Amer) Est GFR (Non-Af Amer) Random Glucose Calcium Phosphorus Magnesium Total Bilirubin AST ALT Alkaline Phosphatase Ammonia NT-Pro-B Natriuret Pep 78.0 Total Protein Albumin Globulin Albumin/Globulin Ratio Urine Color Urine Clarity Urine pH Ur Specific [place] Urine Protein Urine Glucose (UA) Urine Ketones Urine Blood Urine Nitrate Urine Bilirubin Urine Urobilinogen Ur Leukocyte Esterase Urine WBC (Auto) Urine RBC (Auto) Ur Squamous Epith Cells Urine Bacteria Urine Opiates Screen Urine Methadone Screen Ur Barbiturates Screen Ur Phencyclidine Scrn Ur Amphetamines Screen U Benzodiazepines Scrn U Oth Cocaine Metabols U Cannabinoids Screen Alcohol, Quantitative
[2018-10-03 20:05] LABS: BASO % 0.9 % (0.0-2.0); EOS # 0.1 K/uL (0.0-0.7); EOS % 3.4 % (0.0-4.0); HEMOGLOBIN 10.2 g/dL (12.0-18.0); LYMPH # 1.5 K/uL (1.0-4.3); LYMPH % 41.8 % (20.0-40.0); MEAN CORPUSCULAR HEMOGLOBIN 30.4 pg (27.0-31.0); MEAN CORPUSCULAR HGB CONC 33.4 g/dL (33.0-37.0); MEAN PLATELET VOLUME 7.9 fL (7.2-11.7); MONO # 0.6 K/uL (0.0-0.8); MONO % 16.8 % (0.0-10.0); NEUT # 1.3 K/uL (1.8-7.0); NEUT % 37.1 % (50.0-75.0); NRBC % 0.2 % (0.0-2.0); RBC 3.36 Mil/uL (4.40-5.90); RED CELL DISTRIBUTION WIDTH 22.7 % (11.5-14.5); WHITE BLOOD COUNT 3.5 K/uL (4.8-10.8)
[2018-10-03 20:18] LABS: ALB/GLOB RATIO 0.5 (1.0-2.1); ALBUMIN 2.6 g/dL (3.5-5.0); ALT/SGPT 12 U/L (21-72); AST/SGOT 46 U/L (17-59); BLOOD UREA NITROGEN 9 mg/dL (9-20); CALCIUM 8.4 mg/dl (8.6-10.4); GFR NON-AFRICAN AMERICAN > 60
[2018-10-03] MEDS: Magnesium Sulfate 1 gm in D5W 1 GM/100 ML BAG IVPB SCH (21:20)
[2018-10-04] MEDS: Magnesium Sulfate 1 gm in D5W 1 GM/100 ML BAG IVPB SCH ×2 (00:10→04:52)
[2018-10-04 07:51] LABS: BASO % 0.4 % (0.0-2.0); EOS # 0.1 K/uL (0.0-0.7); EOS % 3.1 % (0.0-4.0); HEMOGLOBIN 10.1 g/dL (12.0-18.0); LYMPH # 1.3 K/uL (1.0-4.3); LYMPH % 33.3 % (20.0-40.0); MEAN CELL VOLUME 91.3 fL (80.0-94.0); MEAN CORPUSCULAR HEMOGLOBIN 31.1 pg (27.0-31.0); MEAN CORPUSCULAR HGB CONC 34.1 g/dL (33.0-37.0); MONO # 0.6 K/uL (0.0-0.8); MONO % 16.1 % (0.0-10.0); NEUT # 1.9 K/uL (1.8-7.0); NEUT % 47.1 % (50.0-75.0); RBC 3.25 Mil/uL (4.40-5.90); RED CELL DISTRIBUTION WIDTH 22.8 % (11.5-14.5); WHITE BLOOD COUNT 3.9 K/uL (4.8-10.8)
[2018-10-04 08:08] LABS: ALB/GLOB RATIO 0.5 (1.0-2.1); ALBUMIN 2.6 g/dL (3.5-5.0); ALT/SGPT 13 U/L (21-72); AST/SGOT 48 U/L (17-59); BLOOD UREA NITROGEN 10 mg/dL (9-20); CALCIUM 8.1 mg/dl (8.6-10.4); GFR NON-AFRICAN AMERICAN > 60
[2018-10-04] MEDS: Folic Acid 1 MG, Thiamine 100 MG, Multivitamin (MVI) 10 ML in Dextrose 5% In Water 1,00... IV SCH (10:45)
[2018-10-04] MEDS: Cilostazol 100 mg Tab UD PO SCH ×2 (10:46→22:14)
[2018-10-04] MEDS: Pantoprazole 40 mg EC Tab PO SCH (10:46)
[2018-10-04] MEDS: Magnesium Oxide 400 mg Tab UD PO SCH ×3 (10:46→17:52)
[2018-10-04] MEDS: Potassium Chloride 20 mEq ER Tab PO SCH (10:47)
--- NOTE | 2018-10-04 14:24 | CARD ---
APPROVED REPORT Date of service: 10/02/2018 EKG Measurement Heart [id number] <Conclusion> Normal sinus rhythm Rightward axis Borderline ECG
--- NOTE | 2018-10-04 19:22 | CP.PCM.PN ---
Subjective - Date & Time of Evaluation Date of Evaluation: 10/04/18 Time of Evaluation: 08:15 - Subjective Subjective: clinically same Objective - Vital Signs/Intake and Output Vital Signs (last 24 hours): Temp Pulse Resp BP Pulse Ox 98.1 F 80 20 119/66 96 10/04/18 15:00 10/04/18 15:00 10/04/18 15:00 10/04/18 15:00 10/04/18 15:00 - Medications Medications: Current Medications Chlordiazepoxide (Librium) 25 mg PO Q8 PRN PRN Reason: Symptoms of alcohol withdrawl Cilostazol (Pletal) 100 mg PO Q12 [facility] Last Admin: 10/04/18 10:46 Dose: 100 mg Folic Acid (Folic Acid) 1 mg PO DAILY [facility] Last Admin: 10/04/18 10:46 Dose: 1 mg Gabapentin (Neurontin) 400 mg PO TID [facility] Last Admin: 10/04/18 17:52 Dose: 400 mg Folic Acid 1 mg/ Thiamine HCl 100 mg/ Multivitamins/Vitamin C 10 ml/ Dextrose 1,011.2 mls @ 75 mls/hr IV DAILY [facility] Last Admin: 10/04/18 10:45 Dose: 75 mls/hr Lactulose (Enulose) 30 gm PO BID [facility] Last Admin: 10/04/18 17:51 Dose: 30 gm Magnesium Oxide (Mag-Ox) 800 mg PO TID [facility] Last Admin: 10/04/18 17:52 Dose: 800 mg Pantoprazole Sodium (Protonix Ec Tab) 40 mg PO DAILY [facility] Last Admin: 10/04/18 10:46 Dose: 40 mg Potassium Chloride (K-Dur 20 Meq Er Tab) 20 meq PO DAILY [facility] Last Admin: 10/04/18 10:47 Dose: 20 meq Rifaximin (Xifaxan) 550 mg PO BID [facility]; Protocol Last Admin: 10/04/18 17:52 Dose: 550 mg - Labs Labs: 10/04/18 07:35 10/04/18 07:35 PT 17.0 SECONDS (9.7-12.2) H 10/02/18 20:25 INR 1.6 10/02/18 20:25 - Constitutional Appears: Well - Head Exam Head Exam: ATRAUMATIC, NORMAL INSPECTION, NORMOCEPHALIC - Eye Exam Eye Exam: EOMI, Normal appearance, PERRL Pupil Exam: NORMAL ACCOMODATION, PERRL - ENT Exam ENT Exam: Mucous Membranes Moist, Normal Exam - Neck Exam Neck Exam: Full ROM, Normal Inspection. absent: Lymphadenopathy - Respiratory Exam Respiratory Exam: Decreased Breath Sounds - Cardiovascular Exam Cardiovascular Exam: REGULAR RHYTHM, +S1, +S2 - GI/Abdominal Exam GI & Abdominal Exam: Soft, Diminished Bowel Sounds - Rectal Exam Rectal Exam: Deferred
[2018-10-05] MEDS: Magnesium Oxide 400 mg Tab UD PO SCH (08:38)
[2018-10-05] MEDS: Potassium Chloride 20 mEq ER Tab PO SCH (08:39)
[2018-10-05] MEDS: Pantoprazole 40 mg EC Tab PO SCH (08:39)
[2018-10-05] MEDS: Cilostazol 100 mg Tab UD PO SCH (08:40)
[2018-10-05 09:13] VITALS: BP 128/95; PULSE 81; RESP 19; TEMP 97.2; O2SAT 98
== END 2018-10-05 09:06 | disposition left against medical advice (07) | DRG 433 ==
LOC: C.ER 18:16 → C.9E 22:26 → C.3T 10-03 00:47
PROVIDERS: ADMIT Internal Medicine Nephrology; ATTEND Internal Medicine Nephrology
DX: K70.30 Alcoholic cirrhosis of liver without ascites (principal); Z68.42 Body mass index [BMI] 45.0-49.9, adult; R41.82 Altered mental status, unspecified; J44.9 Chronic obstructive pulmonary disease, unspecified; I50.9 Heart failure, unspecified; I48.91 Unspecified atrial fibrillation; I11.0 Hypertensive heart disease with heart failure; E66.9 Obesity, unspecified; Z86.73 Personal history of transient ischemic attack (TIA), and cerebral infarction without residual deficits; Z79.4 Long term (current) use of insulin; E10.51 Type 1 diabetes mellitus with diabetic peripheral angiopathy without gangrene

== ENCOUNTER 2018-10-22 01:07 | Emergency (ER) | payer MEDICARE, OTHER ==
[2018-10-22 01:07] VITALS: BMI 48.0
--- NOTE | 2018-10-22 01:41 | C.PDOC ---
History Of Present Illness 47 year old male presents to the ED for evaluation of left-sided flank pain which began around 5 days ago. Patient denies fever, chills, nausea, and vomiting. Time Seen by Provider: 10/22/18 01:22 Chief Complaint (Nursing): Back Pain History Per: Patient History/Exam Limitations: no limitations Onset/Duration Of Symptoms: Days (5) Current Symptoms Are (Timing): Still Present Quality Of Discomfort: "Pain" Associated Symptoms: denies: Incontinence, New Weakness, New Numbness Additional History Per: Patient Past Medical History Reviewed: Historical Data, Nursing Documentation, Vital Signs Vital Signs: Last Vital Signs Temp 98.7 F 10/22/18 01:18 Pulse 102 H 10/22/18 01:18 Resp 18 10/22/18 01:18 BP 136/80 10/22/18 01:18 Pulse Ox 100 10/22/18 01:18 - Medical History PMH: Anemia, Anxiety, Arthritis (KNEE), Asthma, Atrial Fibrillation, Cardia Arrhythmia, CHF, COPD, Gall Bladder Disease, HTN, Pancreatitis, Pneumonia, Schizophrenia, TIA Denies: Bipolar Disorder, Depression, Diabetes, Hepatitis, HIV, Chronic Kidney Disease, Seizures, Sexually Transmitted Disease Surgical History: Appendectomy, Cholecystectomy Denies: CABG, Coronary Stent, Pacemaker, Tonsillectomy - [facility] Procedures FLUOROSCOPY OF RIGHT JUGULAR VEINS, GUIDANCE (11/14/15) INSERT INFUSION DEV IN R INT JUGULAR VEIN, PERC (11/14/15) INTRODUCTION OF SERUM/TOX/VACCINE INTO MUSCLE, PERC APPROACH (05/28/17) REMOVAL OF INFUSION DEVICE FROM UPPER VEIN, RN EXAMINER APPROACH (11/14/15) Family History: States: Unknown Family Hx - Social History Hx Tobacco Use: No Hx Alcohol Use: Yes Hx Substance Use: No - Immunization History Hx Tetanus Toxoid Vaccination: No Hx Influenza Vaccination: No Hx Pneumococcal Vaccination: No Review Of Systems Except As Marked, All Systems Reviewed And Found Negative. Constitutional: Negative for: Fever Gastrointestinal: Negative for: Vomiting Physical Exam - Physical Exam Additional Physical Exam Comments: Constitutional: No acute distress. Morbidly obese. Head: Normocephalic. Atraumatic. Eyes: PERRL. ENT: Moist mucous membranes. Neck: Supple. Cardiovascular: Regular rate. Radial pulse 2+ bilaterally. Chest: No tenderness. Respiratory: Clear to auscultation bilaterally. GI: Soft. Nontender. Nondistended. Back: No CVA tenderness. Musculoskeletal: No tenderness or swelling of extremities. Skin: No rash. Neurologic: Alert, no focal deficit. ED Course And Treatment - Laboratory Results Result Diagrams: 10/22/18 03:26 10/22/18 03:26 O2 Sat by Pulse Oximetry: 100 (on RA) Pulse Ox Interpretation: Normal Medical Decision Making Medical Decision Making: Progress: Bloodwork, urinalysis, and CT A/P ordered and reviewed. Toradol IVP, Zofran IVP and IV fluids given. CT A/P Impression: Moderate cardiomegaly. Prominent perigastric/periesophageal varicosities from portal hypertension. Mesenteric edema and congestion. Uncomplicated colonic diverticulosis. Moderate amount of fecal residue in the large bowel. Cirrhotic unenhanced liver. Moderately enlarged unenhanced spleen. Patient feels better. Discharged home, f/u PMD, return to ED for worsening pain, fever, vomiting, dyspnea, or any other problem. Disposition - Disposition Disposition: HOME/ ROUTINE Disposition Time: 04:10 Condition: STABLE Prescriptions: levoFLOXacin [Levaquin] 1 tab PO DAILY #7 tab Instructions: Flank Pain Forms: [employer] (Slovak) - Clinical Impression Clinical Impression: Flank pain - Scribe Statement The provider has reviewed the documentation as recorded by the Scribe (Soco Flores) Provider Attestation: All medical record entries made by the Scribe were at my direction and personally dictated by me. I have reviewed the chart and agree that the record accurately reflects my personal performance of the history, physical exam, medical decision making, and the department course for this patient. I have also personally directed, reviewed, and agree with the discharge instructions and disposition.
[2018-10-22] MEDS ORDERED: Sodium Chloride 0.9% 1,000 ML IV STA (02:22)
[2018-10-22] MEDS ORDERED: Sodium Chloride 0.9% 1,000 ML ONE (03:27)
[2018-10-22 03:32] LABS: BASO % 0.8 % (0.0-2.0); EOS # 0.1 K/uL (0.0-0.7); EOS % 4.9 % (0.0-4.0); HEMOGLOBIN 10.1 g/dL (12.0-18.0); LYMPH # 1.1 K/uL (1.0-4.3); MEAN CELL VOLUME 93.7 fL (80.0-94.0); MEAN CORPUSCULAR HEMOGLOBIN 30.7 pg (27.0-31.0); MEAN CORPUSCULAR HGB CONC 32.7 g/dL (33.0-37.0); MEAN PLATELET VOLUME 7.1 fL (7.2-11.7); MONO # 0.3 K/uL (0.0-0.8); MONO % 12.4 % (0.0-10.0); NEUT # 1.2 K/uL (1.8-7.0); NEUT % 41.9 % (50.0-75.0); NRBC % 0.1 % (0.0-2.0); RBC 3.28 Mil/uL (4.40-5.90); RED CELL DISTRIBUTION WIDTH 21.8 % (11.5-14.5); WHITE BLOOD COUNT 2.8 K/uL (4.8-10.8)
[2018-10-22 03:35] LABS: SQUAMOUS EPITHIAL 1 /hpf (0-5); URINE BACTERIA OCC (<OCC); URINE BILIRUBIN NEGATIVE (NEGATIVE); URINE BLOOD NEGATIVE (NEGATIVE); URINE CLARITY Clear (Clear); URINE COLOR Yellow (YELLOW); URINE GLUCOSE (UA) NORMAL (Normal); URINE LEUKOCYTE ESTERASE TRACE Leu/uL (Negative); URINE PROTEIN NEGATIVE (NEGATIVE)
[2018-10-22 03:45] LABS: ALB/GLOB RATIO 0.5 (1.0-2.1); ALBUMIN 2.5 g/dL (3.5-5.0); ALT/SGPT 21 U/L (21-72); AST/SGOT 45 U/L (17-59); BLOOD UREA NITROGEN 8 mg/dL (9-20); CALCIUM 7.9 mg/dl (8.6-10.4); GFR NON-AFRICAN AMERICAN > 60; LIPASE 156 U/L (23-300)
[2018-10-22 06:30] VITALS: BP 116/82; PULSE 76; RESP 16; TEMP 98.2; O2SAT 98
--- NOTE | 2018-10-22 17:31 | CT ---
Date of service: 10/22/2018 PROCEDURE: CT Abdomen and Pelvis without intravenous contrast HISTORY: L flank pain COMPARISON: 01/12/2015 TECHNIQUE: Without contrast.. Contrast dose: 0 Radiation dose: Total exam DLP = 1256.03 mGy-cm. This CT exam was performed using one or more of the following dose reduction techniques: Automated exposure control, adjustment of the mA and/or kV according to patient size, and/or use of iterative reconstruction technique. FINDINGS: LOWER THORAX: 7 mm perifissural nodule seen along the major fissure at the right base. This portion of the right lung was not included on the prior CT examination. Recommend follow-up noncontrast CT examination in 6-12 months. As per Fleischner society criteria. Cardiomegaly. Small hiatal hernia. LIVER: Markedly nodular hepatic contour consistent with cirrhosis. No discrete mass. No biliary ductal dilatation. GALLBLADDER AND BILE DUCTS: Unremarkable. PANCREAS: No pancreatic mass identified. There is hazy increased density of the peripancreatic fat particularly inferior to the pancreatic head. This may reflect acute pancreatitis. No fluid collection identified. There are several small peripancreatic lymph nodes identified. The possibility of pancreatic neoplasm must be considered and evaluation with multiphasic contrast enhanced CT examination is advised. No pancreatic ductal dilatation. There is a diverticulum of the 2nd duodenum extending into the ampulla of Vater. Numerous varices are noted about the pancreas. SPLEEN: Splenomegaly. The spleen measures approximately 15.5 cm in greatest dimension. No mass. ADRENALS: Unremarkable. No mass. KIDNEYS AND URETERS: Unremarkable. No hydronephrosis. No solid mass. VASCULATURE: Unremarkable. No aortic aneurysm. There is atherosclerotic calcification of the abdominal aorta. Retroperitoneal varices are noted. Suspect paraesophageal varices. BOWEL: No bowel obstruction. No abnormal bowel loops are identified aside from the duodenal diverticulum noted above. APPENDIX: Not identified. No secondary findings to suggest acute appendicitis PERITONEUM: Extensive increased attenuation of the mesentery inferior to the pancreas head and body may reflect pancreatitis as noted above. Alternatively, this could represent mesenteric edema from other sources. LYMPH NODES: Unremarkable. No enlarged lymph nodes. BLADDER: Unremarkable. REPRODUCTIVE: Normal prostate BONES: No acute fracture. OTHER FINDINGS: None. IMPRESSION: Hepatic cirrhosis. Possible pancreatitis. Correlate with clinical and laboratory evaluation. Splenomegaly. Retroperitoneal varices. Possible paraesophageal varices. Extensive edema of the small bowel mesentery inferior to the pancreatic head and body may reflect pancreatitis but additional etiologies should be considered. Multiple small peripancreatic lymph nodes common nonspecific. Consider the possibility of pancreatic neoplasm. Further evaluation with multiphasic contrast enhanced CT examination is advised. 7 mm perifissural lymph node right lower lobe. 6-12 month follow-up noncontrast chest CT examination is advised as per Fleischner society criteria. The preliminary findings for this examination were reported by [facility] at 4:10 a.m. on 10/22/2018. There is discordance of this report with the preliminary findings. The possibility of pancreatitis was not described in the preliminary report of this examination. See above. Peripancreatic lymphadenopathy not described.
== END 2018-10-22 06:49 | disposition home or self-care (01) ==
LOC: C.ER 01:07
DX: R10.9 Unspecified abdominal pain (principal)
CPT/HCPCS: 74176; 80053; 81001; 83690; 85025; 87086; 96361; 96374; 96375; 99284; J1885; J2405; J7030

== ENCOUNTER 2018-10-23 11:20 | Emergency (ER) | payer MEDICARE, OTHER ==
[2018-10-23 11:20] VITALS: BMI 48.0
[2018-10-23] MEDS ORDERED: Lidocaine 5% Patch TD STA (11:48)
[2018-10-23 11:53] VITALS: RESP 18
--- NOTE | 2018-10-23 14:24 | C.PDOC ---
History Of Present Illness 47 y/o male with a PMHx of substance abuse, liver cirrhosis, and renal disease, presents to the ED with complaints of bilateral low back pain, left > right. 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 Yesterday patient had CT Abd/Pelvis showing liver cirrhosis but no acute abdomen. Otherwise patient denies having any fevers, chills, nausea, vomiting, diarrhea, or abdominal pain. He reports bilateral flank pain radiating down legs to his feet. Time Seen by Provider: 10/23/18 11:36 Chief Complaint (Nursing): Back Pain History Per: Patient History/Exam Limitations: no limitations Onset/Duration Of Symptoms: Worse Since (today) Current Symptoms Are (Timing): Still Present Quality Of Discomfort: "Pain" Past Medical History Reviewed: Historical Data, Nursing Documentation, Vital Signs Vital Signs: Last Vital Signs Temp 97.9 F 10/23/18 11:25 Pulse 90 10/23/18 11:25 Resp 18 10/23/18 11:25 BP 146/87 10/23/18 11:25 Pulse Ox 100 10/23/18 11:25 - Medical History PMH: Anemia, Anxiety, Arthritis (KNEE), Asthma, Atrial Fibrillation, Cardia Arrhythmia, CHF, COPD, Gall Bladder Disease, HTN, Pancreatitis, Pneumonia, S chizophrenia, TIA Denies: Bipolar Disorder, Depression, Diabetes, Hepatitis, HIV, Chronic Kidney Disease, Seizures, Sexually Transmitted Disease Surgical History: Appendectomy, Cholecystectomy Denies: CABG, Coronary Stent, Pacemaker, Tonsillectomy - [facility] Procedures FLUOROSCOPY OF RIGHT JUGULAR VEINS, GUIDANCE (11/14/15) INSERT INFUSION DEV IN R INT JUGULAR VEIN, PERC (11/14/15) INTRODUCTION OF SERUM/TOX/VACCINE INTO MUSCLE, PERC APPROACH (05/28/17) REMOVAL OF INFUSION DEVICE FROM UPPER VEIN, CONSTRUCTION PROJECT ADMINISTRATOR APPROACH (11/14/15) Family History: States: Unknown Family Hx - Social History Hx Tobacco Use: No Hx Alcohol Use: Yes Hx Substance Use: No - Immunization History Hx Tetanus Toxoid Vaccination: No Hx Influenza Vaccination: No Hx Pneumococcal Vaccination: No Review Of Systems Except As Marked, All Systems Reviewed And Found Negative. Constitutional: Negative for: Fever, Chills Cardiovascular: Negative for: Chest Pain Respiratory: Negative for: Shortness of Breath Gastrointestinal: Negative for: Nausea, Vomiting, Abdominal Pain, Diarrhea Genitourinary: Negative for: Dysuria, Incontinence, Hematuria Musculoskeletal: Positive for: Back Pain, Leg Pain Neurological: Negative for: Weakness, Numbness Physical Exam - Physical Exam Appears: Non-toxic, In Acute Distress (moderate painful distress), Other (morbidly obese) Skin: Normal Color, Warm, No Rash Head: Atraumatic, Normacephalic Eye(s): bilateral: Normal Inspection, PERRL, EOMI Nose: Normal Oral Mucosa: Moist Neck: Normal ROM, Supple Chest: Symmetrical Cardiovascular: Rhythm Regular, No Murmur Respiratory: No Rales, No Rhonchi, No Wheezing, Other (Lungs clear to auscultation bilaterally) Gastrointestinal/Abdominal: Soft, No Tenderness, No Distention Extremity: Normal ROM (x 4), Other (significant venous stasis changes and hyperpigmentation of the bilateral lower extremities) Pulses: Left Dorsalis Pedis: Decreased (difficult to palpate), Right Dorsalis Pedis: Decreased (difficult to palpate) Neurological/Psych: Oriented x3 ED Course And Treatment O2 Sat by Pulse Oximetry: 100 (RA) Pulse Ox Interpretation: Normal Medical Decision Making Medical Decision Making: Impression: Chronic back pain Initial Plan: - 975 mg PO Tylenol - 600 mg PO Motrin - 60 mg PO Prednisone - 10 mg PO Flexeril - Lidoderm patch x1 - Reassess Disposition Counseled Patient/Family Regarding: Diagnosis, Need For Followup, Rx Given - Disposition Disposition: HOME/ ROUTINE Disposition Time: 14:22 Condition: IMPROVED Prescriptions: Cyclobenzaprine [Cyclobenzaprine HCl] 10 mg PO TID #15 tab Ibuprofen [Motrin] 600 mg PO TID #15 tab Instructions: Radiculopathy (DC) Forms: [employer] (Latvian), Gen Discharge Inst Latvian - Clinical Impression Clinical Impression: Low back pain, Sciatica - Scribe Statement The provider has reviewed the documentation as recorded by the Shanna Forbes Provider Attestation: All medical record entries made by the Kellyibzan were at my direction and personally dictated by me. I have reviewed the chart and agree that the record accurately reflects my personal performance of the history, physical exam, medical decision making, and the department course for this patient. I have also personally directed, reviewed, and agree with the discharge instructions and disposition.
[2018-10-23 14:30] VITALS: BP 125/76; PULSE 95; TEMP 99.3
[2018-10-23 14:44] VITALS: O2SAT 100
== END 2018-10-23 15:37 | disposition home or self-care (01) ==
LOC: C.ER 11:20
DX: M54.40 Lumbago with sciatica, unspecified side (principal)

== ENCOUNTER 2018-10-30 20:29 | Emergency (ER) | payer MEDICARE, OTHER ==
[2018-10-30 20:30] VITALS: BMI 48.0
[2018-10-30 20:51] VITALS: BP 126/79; PULSE 117; TEMP 97.5; O2SAT 98
--- NOTE | 2018-10-30 21:18 | C.PDOC ---
History Of Present Illness 47 year old male presents to the ED c/o chronic bilateral leg pain. Patient reports he is homeless and is requesting for a place to spend the night. Patient denies CP, SOB, abdominal pain, injury, fall, trauma, weakness, numbness. Time Seen by Provider: 10/30/18 21:15 Chief Complaint (Nursing): Lower Extremity Problem/Injury History Per: Patient History/Exam Limitations: no limitations Onset/Duration Of Symptoms: Days Current Symptoms Are (Timing): Still Present Recent travel outside of the [place]: No Additional History Per: Patient - Ankle/Foot Description Of Injury: Other Past Medical History Reviewed: Historical Data, Nursing Documentation, Vital Signs Vital Signs: Last Vital Signs Temp 97.5 F L 10/30/18 20:42 Pulse 117 H 10/30/18 20:42 Resp 20 10/30/18 20:42 BP 126/79 10/30/18 20:42 Pulse Ox 98 10/30/18 20:42 - Medical History PMH: Anemia, Anxiety, Arthritis (KNEE), Asthma, Atrial Fibrillation, Cardia Arrhythmia, CHF, COPD, Gall Bladder Disease, HTN, Pancreatitis, Pneumonia, Schizophrenia, TIA Denies: Bipolar Disorder, Depression, Diabetes, Hepatitis, HIV, Chronic Kidney Disease, Seizures, Sexually Transmitted Disease Surgical History: Appendectomy, Cholecystectomy Denies: CABG, Coronary Stent, Pacemaker, Tonsillectomy - [facility] Procedures FLUOROSCOPY OF RIGHT JUGULAR VEINS, GUIDANCE (11/14/15) INSERT INFUSION DEV IN R INT JUGULAR VEIN, PERC (11/14/15) INTRODUCTION OF SERUM/TOX/VACCINE INTO MUSCLE, PERC APPROACH (05/28/17) REMOVAL OF INFUSION DEVICE FROM UPPER VEIN, CARDIOLOGY TECHNOLOGIST APPROACH (11/14/15) Family History: States: Unknown Family Hx - Social History Hx Tobacco Use: No Hx Alcohol Use: Yes Hx Substance Use: No - Immunization History Hx Tetanus Toxoid Vaccination: No Hx Influenza Vaccination: No Hx Pneumococcal Vaccination: No Review Of Systems Constitutional: Negative for: Fever, Chills Eyes: Negative for: Vision Change Cardiovascular: Negative for: Chest Pain Respiratory: Negative for: Shortness of Breath Gastrointestinal: Negative for: Nausea, Vomiting, Abdominal Pain Musculoskeletal: Positive for: Leg Pain Neurological: Negative for: Weakness, Numbness Physical Exam - Physical Exam Appears: Non-toxic, No Acute Distress Skin: Normal Color, Warm, Dry Head: Atraumatic, Normacephalic Eye(s): bilateral: Normal Inspection Oral Mucosa: Moist Neck: Normal ROM, Supple Chest: Symmetrical Cardiovascular: Rhythm Regular Respiratory: Normal Breath Sounds, No Rales, No Rhonchi, No Wheezing Gastrointestinal/Abdominal: Soft, No Tenderness, No Guarding, No Rebound Extremity: Normal ROM, No Tenderness, No Swelling Neurological/Psych: Oriented x3, Normal Speech, Normal Cognition Gait: Steady ED Course And Treatment O2 Sat by Pulse Oximetry: 98 (ON RA) Pulse Ox Interpretation: Normal Progress Note: Plan: - Motrin 800 mg PO. Reviewed patient's old records, patient has multiple prior visits to the ED for same presentation. Patient was seen twiced last night at [facility]. Patient was seen walking with stable gate in the ED. Disposition - Disposition Disposition: HOME/ ROUTINE Disposition Time: 21:16 Condition: STABLE Additional Instructions: Follow up with PMD within 2-03 days. Return to ED if feel worse. Instructions: Chronic Pain (DC) Forms: ishBowl (Chilean) Print Language: GERMAN - Clinical Impression Clinical Impression: Chronic pain of lower extremity, bilateral, Homelessness - PA / CONCRETE CURER / Resident Statement MD/DO has reviewed & agrees with the documentation as recorded. - Scribe Statement The provider has reviewed the documentation as recorded by the Scribe Benjamin Wall All medical record entries made by the Kellyibzan were at my direction and personally dictated by me. I have reviewed the chart and agree that the record accurately reflects my personal performance of the history, physical exam, medical decision making, and the department course for this patient. I have also personally directed, reviewed, and agree with the discharge instructions and disposition.
[2018-10-30 21:46] VITALS: RESP 16
== END 2018-10-30 21:41 | disposition home or self-care (01) ==
LOC: C.ER 20:29
DX: G89.29 Other chronic pain (principal); M79.605 Pain in left leg; M79.604 Pain in right leg; Z59.0 Homelessness

== ENCOUNTER 2018-10-31 17:48 | Emergency (ER) | payer MEDICARE, OTHER ==
[2018-10-31 17:48] VITALS: BMI 48.0
--- NOTE | 2018-10-31 19:22 | C.PDOC ---
History Of Present Illness Patient brought in via EMS after being found intoxicated at home. Denies suicidal ideation or homicidal ideation. Time Seen by Provider: 10/31/18 19:22 Chief Complaint (Nursing): Substance Abuse History Per: Patient, EMS History/Exam Limitations: no limitations Onset/Duration Of Symptoms: Hrs Current Symptoms Are (Timing): Still Present Suicide/Self Injury Attempted (Context): None Modifying Factor(s): Alcohol Severity: None Pain Scale Rating Of: 0 Associated Symptoms: denies: Suicidal Thoughts, Other (Homicidal ideation) Involuntary Hold By: None Recent travel outside of the [place]: No Past Medical History Reviewed: Historical Data, Nursing Documentation, Vital Signs Vital Signs: Last Vital Signs Temp 97.7 F 10/31/18 18:01 Pulse 61 10/31/18 18:01 Resp 16 10/31/18 18:01 BP 100/71 10/31/18 18:01 Pulse Ox 100 10/31/18 18:01 - Medical History PMH: Anemia, Anxiety, Arthritis (KNEE), Asthma, Atrial Fibrillation, Cardia Arrhythmia, CHF, COPD, Gall Bladder Disease, HTN, Pancreatitis, Pneumonia, Schizophrenia, TIA Denies: Bipolar Disorder, Depression, Diabetes, Hepatitis, HIV, Chronic Kidney Disease, Seizures, Sexually Transmitted Disease Surgical History: Appendectomy, Cholecystectomy Denies: CABG, Coronary Stent, Pacemaker, Tonsillectomy - [facility] Procedures FLUOROSCOPY OF RIGHT JUGULAR VEINS, GUIDANCE (11/14/15) INSERT INFUSION DEV IN R INT JUGULAR VEIN, PERC (11/14/15) INTRODUCTION OF SERUM/TOX/VACCINE INTO MUSCLE, PERC APPROACH (05/28/17) REMOVAL OF INFUSION DEVICE FROM UPPER VEIN, COLLEGE COACH APPROACH (11/14/15) Family History: States: No Known Family Hx - Social History Hx Tobacco Use: No Hx Alcohol Use: Yes Hx Substance Use: No - Immunization History Hx Tetanus Toxoid Vaccination: No Hx Influenza Vaccination: No Hx Pneumococcal Vaccination: No Review Of Systems Constitutional: Negative for: Fever, Chills Cardiovascular: Negative for: Chest Pain, Palpitations Respiratory: Negative for: Cough, Shortness of Breath Gastrointestinal: Negative for: Nausea, Vomiting Neurological: Negative for: Weakness, Numbness Psych: Negative for: Suicidal ideation, Other (Homicidal ideation) Physical Exam - Physical Exam Appears: Non-toxic, Other (ETOH on breath, no sign of injury) Skin: Warm, Dry Head: Normacephalic Oral Mucosa: Moist Chest: Symmetrical, No Tenderness Cardiovascular: Rhythm Regular Respiratory: No Rales, No Rhonchi, No Wheezing Gastrointestinal/Abdominal: Soft, No Tenderness Neurological/Psych: Oriented x3 ED Course And Treatment O2 Sat by Pulse Oximetry: 100 (Room air) Pulse Ox Interpretation: Normal Reevaluation Time: 05:23 Reassessment Condition: Improved Disposition Counseled Patient/Family Regarding: Studies Performed, Diagnosis, Need For Followup - Disposition Referrals: [facility] [Outside] Disposition: HOME/ ROUTINE Disposition Time: 19:22 Condition: FAIR Instructions: Alcohol Abuse and Alcoholism (DC), Alcohol Use - When Is Drinking a Problem? Forms: Gather (Nicaraguan) Print Language: SENEGALESE - Clinical Impression Clinical Impression: Alcohol intoxication - Scribe Statement The provider has reviewed the documentation as recorded by the Scribzan Moncada All medical record entries made by the Scribe were at my direction and personally dictated by me. I have reviewed the chart and agree that the record accurately reflects my personal performance of the history, physical exam, medical decision making, and the department course for this patient. I have also personally directed, reviewed, and agree with the discharge instructions and disposition.
[2018-11-01 10:22] VITALS: BP 142/72; PULSE 82; RESP 20
[2018-11-01 10:23] VITALS: TEMP 98; O2SAT 97
== END 2018-11-01 05:30 | disposition home or self-care (01) ==
LOC: C.ER 17:48
DX: F10.129 Alcohol abuse with intoxication, unspecified (principal); F20.9 Schizophrenia, unspecified; J44.9 Chronic obstructive pulmonary disease, unspecified; I48.91 Unspecified atrial fibrillation; I50.9 Heart failure, unspecified; I10 Essential (primary) hypertension; Z86.73 Personal history of transient ischemic attack (TIA), and cerebral infarction without residual deficits

== ENCOUNTER 2018-11-03 02:45 | Emergency (ER) | payer MEDICARE, OTHER | END 2018-11-03 06:23 | disposition home or self-care (01) | LOC: C.ER 02:45 ==

== ENCOUNTER 2018-11-13 08:36 | Inpatient (IN) | payer MEDICARE, OTHER ==
[2018-11-13 08:44] VITALS: BMI 48.9
--- NOTE | 2018-11-13 09:11 | C.PDOC ---
History Of Present Illness 47 y/o male presents to the ER complaining of midsternal chest pain which has been present for the past 2 days. Patient states that he has chronic shortness of breath. Patient is also complaining of left leg pain which has been present "for a while." He also notes that he has history of ETOH abuse and he is requesting detox from ETOH.Denies having suicidal ideation, homicidal ideation, fever,chills, nausea,vomiting, abdominal pain, weakness and numbness of legs. Time Seen by Provider: 11/13/18 09:01 Chief Complaint (Nursing): Chest Pain History Per: Patient History/Exam Limitations: no limitations Onset/Duration Of Symptoms: Days Current Symptoms Are (Timing): Still Present Severity: Moderate Past Medical History Reviewed: Historical Data, Nursing Documentation, Vital Signs Vital Signs: Last Vital Signs Temp 98.9 F 11/13/18 08:42 Pulse 107 H 11/13/18 08:42 Resp 20 11/13/18 08:42 BP 134/84 11/13/18 08:42 Pulse Ox 100 11/13/18 08:42 - Medical History PMH: Anemia, Anxiety, Arthritis (KNEE), Asthma, Atrial Fibrillation, Cardia Arrhythmia, CHF, COPD, Gall Bladder Disease, HTN, Pancreatitis, Pneumonia, Schizophrenia, TIA Denies: Bipolar Disorder, Depression, Diabetes, Hepatitis, HIV, Chronic Kidney Disease, Seizures, Sexually Transmitted Disease Surgical History: Appendectomy, Cholecystectomy Denies: CABG, Coronary Stent, Pacemaker, Tonsillectomy - [facility] Procedures FLUOROSCOPY OF RIGHT JUGULAR VEINS, GUIDANCE (11/14/15) INSERT INFUSION DEV IN R INT JUGULAR VEIN, PERC (11/14/15) INTRODUCTION OF SERUM/TOX/VACCINE INTO MUSCLE, PERC APPROACH (05/28/17) REMOVAL OF INFUSION DEVICE FROM UPPER VEIN, DOSIMETRIST APPROACH (11/14/15) Family History: States: No Known Family Hx - Social History Hx Tobacco Use: No Hx Alcohol Use: Yes Hx Substance Use: No - Immunization History Hx Tetanus Toxoid Vaccination: No Hx Influenza Vaccination: No Hx Pneumococcal Vaccination: No Review Of Systems Except As Marked, All Systems Reviewed And Found Negative. Constitutional: Negative for: Fever, Chills Cardiovascular: Positive for: Chest Pain Respiratory: Positive for: Shortness of Breath Gastrointestinal: Negative for: Nausea, Vomiting Musculoskeletal: Positive for: Leg Pain Neurological: Negative for: Weakness, Numbness Physical Exam - Physical Exam Appears: Non-toxic, No Acute Distress Skin: Normal Color, Warm, Dry Head: Atraumatic, Normacephalic Eye(s): bilateral: Normal Inspection Nose: Normal Oral Mucosa: Moist Neck: Supple Chest: Symmetrical Cardiovascular: Rhythm Regular Respiratory: Normal Breath Sounds, No Rales, No Rhonchi, No Wheezing Gastrointestinal/Abdominal: Normal Exam, Soft, No Tenderness, No Guarding, No Rebound Extremity: Normal ROM, Tenderness (tenderness to posterior thigh of left leg), No Swelling Neurological/Psych: Oriented x3, Normal Speech ED Course And Treatment - Laboratory Results Result Diagrams: 11/13/18 09:50 11/13/18 10:32 ECG: Interpreted By Me, Viewed By Me ECG Rhythm: Sinus Tachycardia Interpretation Of ECG: Sinus Tachycardia with non specific ST/ T wave abnormalities Rate From EC O2 Sat by Pulse Oximetry: 100 (RA) Pulse Ox Interpretation: Normal - CT Scan/US Chest CTA Other Rad Studies (CT/US): Read By Radiologist, Radiology Report Reviewed CT/US Interpretation: Accession No. : [id number]. Patient Name / ID : YELENA ELDER / [id number]. Exam Date : 11/13/2018 14:11:17 ( Approved ). Study Comment : Sex / Age : M / 47Y. Creator : Jerome Garcia MD. Dictator : Jerome Garcia MD. Cotton Tier : Abstract Manager : Jerome Garcia MD. Approver2 : Report Date : 11/13/2018 15:33:51. My Comment : . Date of service: 11/13/2018. PROCEDURE: CT Chest with contrast (Pulmonary Angiogram). HISTORY: SOB, elevated D Dimer. COMPARISON: Correlation made with prior CTA of the chest dated 10/20/2016. TECHNIQUE: Axial computed tomography images were obtained of the chest in the pulmonary arterial phase of enhancement. Coronal and sagittal reformatted images were created and reviewed. Intravenous contrast dose: 150 cc Visipaque 320 contrast material. Radiation dose: Total exam DLP = 1135.55 mGy-cm. This CT exam was performed using one or more of the following dose reduction techniques: Automated exposure control, adjustment of the mA and/or kV according to patient size, and/or use of iterative reconstruction technique. FINDINGS: Evaluation for pulmonary embolus is limited due to suboptimal opacification of the pulmonary arteries as well as large body habitus. PULMONARY ARTERIES: Unremarkable. No pulmonary embolism. Pulmonary trunk measures approximately 3.3 cm. The azygos vein appears enlarged. AORTA: No acute findings. No thoracic aortic aneurysm. Ascending thoracic aorta measures approximately 3.5 cm and descending thoracic aorta measures approximately 2.55 cm. No aortic atherosclerotic calcification or mural plaque present. LUNGS: There appears to be mild of pulmonary venous congestive changes. Mild bibasilar atelectasis also felt to be present. Vague translucent nodular opacity seen in the right upper lobe of bordering the superior margin of the major fissure posteriorly.. PLEURAL SPACES: Unremarkable. No effusion or pneumothorax. HEART: Heart remains enlarged. No significant pericardial effusion.. LYMPH NODES: Suspect borderline subcarinal lymph node measuring approximately 18 mm. There is a small hiatal hernia with what could be air-fluid levels within the proximal and distal esophagus. Wall thickening of the distal esophagus likely due to protrusion of gastric mucosa however possibility of esophagitis or other intrinsic wall lesion not excluded. The trachea is midline and patent with no large central endoluminal lesions. BONES, CHEST WALL: Mild multilevel degenerative spondylosis of the thoracic spine. OTHER FINDINGS: The liver exhibits lobular and micro nodular contours consistent with underlying hepatic cirrhosis. Clinical correlation recommended. In addition, there also appears to be serpiginous densities within the upper mid abdomen as well as adjacent to the as spleen and left kidney likely due to possibly due to varices. The spleen is enlarged measuring over 14 cm in AP dimension. IMPRESSION: Note that the evaluation for pulmonary embolus limited due to suboptimal opacification of the pulmonary arteries and large body habitu s. No evidence of acute central pulmonary embolus. Marked cardiomegaly. Dilated appearing azygos vein. Findings also suggest mild pulmonary venous congestive changes. Cirrhosis with splenomegaly and apparent upper abdominal varices. LLE duplex Other Rad Studies (CT/US): Read By Radiologist, Radiology Report Reviewed CT/US Interpretation: No evidence of DVT as per hvac field service technician Progress Note: Labs, UA, CXR, and Venous Duplex Scan- LLE ordered. Patient treated with IV Fluids. Disposition - Disposition Disposition: HOSPITALIZED Disposition Time: 16:37 Condition: FAIR - Clinical Impression Clinical Impression: Chest pain, Alcohol abuse, Serum ammonia increased - PA / NAVAL DESIGNER / Resident Statement MD/DO has reviewed & agrees with the documentation as recorded. - Scribe Statement The provider has reviewed the documentation as recorded by the Kellyibe Robles Deckerq Provider Attestation All medical record entries made by the Shanna were at my direction and personally dictated by me. I have reviewed the chart and agree that the record accurately reflects my personal performance of the history, physical exam, medical decision making, and the department course for this patient. I have also personally directed, reviewed, and agree with the discharge instructions and disposition. Decision To Admit - Pt Status Changed To: Hospital Disposition Of: Observation - . Bed Request Type: Telemetry Admitting Physician: Annalee Barnett Patient Diagnosis: Chest pain, Alcohol abuse, Serum ammonia increased
[2018-11-13] MEDS ORDERED: Sodium Chloride 0.9% 500 ML IV STA (09:14)
[2018-11-13] MEDS ORDERED: Sodium Chloride 0.9% 500 ML IV ONE (09:53)
[2018-11-13 09:57] LABS: BASO % 0.8 % (0.0-2.0); EOS # 0.1 K/uL (0.0-0.7); EOS % 2.3 % (0.0-4.0); HEMOGLOBIN 10.1 g/dL (12.0-18.0); LYMPH % 36.5 % (20.0-40.0); MEAN CELL VOLUME 92.9 fL (80.0-94.0); MEAN CORPUSCULAR HEMOGLOBIN 31.2 pg (27.0-31.0); MEAN CORPUSCULAR HGB CONC 33.6 g/dL (33.0-37.0); MEAN PLATELET VOLUME 7.9 fL (7.2-11.7); MONO # 0.8 K/uL (0.0-0.8); MONO % 29.2 % (0.0-10.0); NEUT # 0.8 K/uL (1.8-7.0); NEUT % 31.2 % (50.0-75.0); NRBC % 0.2 % (0.0-2.0); RBC 3.25 Mil/uL (4.40-5.90); RED CELL DISTRIBUTION WIDTH 18.2 % (11.5-14.5); WHITE BLOOD COUNT 2.7 K/uL (4.8-10.8)
[2018-11-13 10:00] LABS: PLATELET COUNT 111 K/uL (130-400)
[2018-11-13 10:44] LABS: INR 1.7; PROTHROMBIN TIME 18.9 SECONDS (9.7-12.2)
[2018-11-13 10:57] LABS: BANDS 2 % (0-2); EOSINOPHIL 4 % (0-4); LYMPHOCYTE 35 % (20-40); MONOCYTE 24 % (0-10); NEUTROPHIL 35 % (50-75); PLATELET ESTIMATE SLIGHTLY DECREASED (NORMAL); TOTAL CELLS COUNTED 100
[2018-11-13 10:58] LABS: SQUAMOUS EPITHIAL 1 /hpf (0-5); URINE BILIRUBIN NEGATIVE (NEGATIVE); URINE BLOOD NEGATIVE (NEGATIVE); URINE CLARITY Clear (Clear); URINE COLOR Yellow (YELLOW); URINE GLUCOSE (UA) NORMAL (Normal); URINE LEUKOCYTE ESTERASE NEG Leu/uL (Negative); URINE PROTEIN NEGATIVE (NEGATIVE)
[2018-11-13 10:58] LABS: ANISOCYTOSIS SLIGHT
[2018-11-13 11:18] LABS: BARBITURATES, UR NEGATIVE (NEGATIVE); BENZODIAZEPINES, UR NEGATIVE (NEGATIVE); OPIATES, UR NEGATIVE (NEGATIVE); PHENCYCLIDINE, UR NEGATIVE (NEGATIVE)
[2018-11-13 11:59] LABS: BLOOD UREA NITROGEN 7 mg/dL (9-20); GFR NON-AFRICAN AMERICAN > 60
[2018-11-13 12:00] LABS: ALB/GLOB RATIO 0.6 (1.0-2.1); ALBUMIN 2.9 g/dL (3.5-5.0); ALT/SGPT 33 U/L (21-72); AST/SGOT 120 U/L (17-59); CALCIUM 8.7 mg/dl (8.6-10.4)
[2018-11-13 12:06] LABS: B-TYPE NATRIURETIC PEPTIDE 760 pg/mL (0-450); CK-MB 1.96 ng/mL (0.0-3.38)
[2018-11-13] MEDS ORDERED: Potassium Chloride 20 mEq/15 ml LIQ UD PO STA (12:48)
[2018-11-13] MEDS ORDERED: Iodixanol 320 MG/ML 100 ML BOTTLE IV ONE ×2 (13:13→14:18)
--- NOTE | 2018-11-13 13:18 | RAD ---
Chest x-ray single frontal view History: Shortness of breath. Chest pain. Comparison: None available. Findings: Elevated right hemidiaphragm. Moderate venous congestion. Patchy bibasilar airspace opacities. Tortuous ectatic aorta. Cardiomegaly. Degenerative changes in the spine and shoulders. Impression: Elevated right hemidiaphragm. Moderate venous congestion. Patchy bibasilar airspace opacities. Tortuous ectatic aorta. Cardiomegaly.
[2018-11-13] MEDS ORDERED: Potassium Chloride 20 mEq/15 ml LIQ UD ONE (13:30)
--- NOTE | 2018-11-13 15:37 | CT ---
Date of service: 11/13/2018 PROCEDURE: CT Chest with contrast (Pulmonary Angiogram) HISTORY: SOB, elevated D Dimer COMPARISON: Correlation made with prior CTA of the chest dated 10/20/2016. TECHNIQUE: Axial computed tomography images were obtained of the chest in the pulmonary arterial phase of enhancement. Coronal and sagittal reformatted images were created and reviewed. Intravenous contrast dose: 150 cc Visipaque 320 contrast material Radiation dose: Total exam DLP = 1135.55 mGy-cm. This CT exam was performed using one or more of the following dose reduction techniques: Automated exposure control, adjustment of the mA and/or kV according to patient size, and/or use of iterative reconstruction technique. FINDINGS: Evaluation for pulmonary embolus is limited due to suboptimal opacification of the pulmonary arteries as well as large body habitus. PULMONARY ARTERIES: Unremarkable. No pulmonary embolism. Pulmonary trunk measures approximately 3.3 cm. The azygos vein appears enlarged. AORTA: No acute findings. No thoracic aortic aneurysm. Ascending thoracic aorta measures approximately 3.5 cm and descending thoracic aorta measures approximately 2.55 cm. No aortic atherosclerotic calcification or mural plaque present. LUNGS: There appears to be mild of pulmonary venous congestive changes. Mild bibasilar atelectasis also felt to be present. Vague translucent nodular opacity seen in the right upper lobe of bordering the superior margin of the major fissure posteriorly.. PLEURAL SPACES: Unremarkable. No effusion or pneumothorax. HEART: Heart remains enlarged. No significant pericardial effusion.. LYMPH NODES: Suspect borderline subcarinal lymph node measuring approximately 18 mm. There is a small hiatal hernia with what could be air-fluid levels within the proximal and distal esophagus. Wall thickening of the distal esophagus likely due to protrusion of gastric mucosa however possibility of esophagitis or other intrinsic wall lesion not excluded. The trachea is midline and patent with no large central endoluminal lesions. BONES, CHEST WALL: Mild multilevel degenerative spondylosis of the thoracic spine. OTHER FINDINGS: The liver exhibits lobular and micro nodular contours consistent with underlying hepatic cirrhosis. Clinical correlation recommended. In addition, there also appears to be serpiginous densities within the upper mid abdomen as well as adjacent to the as spleen and left kidney likely due to possibly due to varices. The spleen is enlarged measuring over 14 cm in AP dimension. IMPRESSION: Note that the evaluation for pulmonary embolus limited due to suboptimal opacification of the pulmonary arteries and large body habitus. No evidence of acute central pulmonary embolus. Marked cardiomegaly. Dilated appearing azygos vein. Findings also suggest mild pulmonary venous congestive changes. Cirrhosis with splenomegaly and apparent upper abdominal varices.
--- NOTE | 2018-11-13 18:13 | CP.PCM.HP ---
History of Present Illness - History of Present Illness History of Present Illness: pt came for sob chest pain leg swalen hurts hx of alc abuse Present on Admission - Present on Admission Any Indicators Present on Admission: No Past Patient History - Infectious Disease Hx of Infectious Diseases: None - Tetanus Immunizations Tetanus Immunization: Unknown - Past Medical History & Family History Past Medical History?: Yes - Past Social History Smoking Status: Never Smoked - CARDIAC Hx Atrial Fibrillation: Yes Hx Cardia Arrhythmia: Yes Hx Congestive Heart Failure: Yes Hx Hypertension: Yes Hx Pacemaker: No - PULMONARY Hx Asthma: Yes Hx Chronic Obstructive Pulmonary Disease (COPD): Yes Hx Pneumonia: Yes - NEUROLOGICAL Hx Seizures: No Hx Transient Ischemic Attacks (TIA): Yes - HEENT Hx HEENT Problems: No - RENAL Hx Chronic Kidney Disease: No - HEMATOLOGICAL/ONCOLOGICAL Hx Anemia: Yes Hx Human Immunodeficiency Virus (HIV): No - INTEGUMENTARY Hx Dermatological Problems: No - MUSCULOSKELETAL/RHEUMATOLOGICAL Hx Arthritis: Yes (KNEE) - GASTROINTESTINAL Hx Gall Bladder Disease: Yes Hx Pancreatitis: Yes - GENITOURINARY/GYNECOLOGICAL Hx Sexually Transmitted Disorders: No - PSYCHIATRIC Hx Anxiety: Yes Hx Bipolar Disorder: No Hx Depression: No Hx Schizophrenia: Yes Hx Substance Use: No - SURGICAL HISTORY Hx Appendectomy: Yes Hx Cholecystectomy: Yes Hx Coronary Artery Bypass Graft: No Hx Coronary Stent: No Hx Tonsillectomy: No - ANESTHESIA Hx Anesthesia: Yes Hx Anesthesia Reactions: No Hx Malignant Hyperthermia: No Meds Allergies/Adverse Reactions: Allergies Allergy/AdvReac Type Severity Reaction Status Date / Time No Known Allergies Allergy Verified 11/13/18 08:44 Physical Exam - Constitutional Appears: In Acute Distress - Head Exam Head Exam: ATRAUMATIC - Eye Exam Eye Exam: Normal appearance Pupil Exam: NORMAL ACCOMODATION - ENT Exam ENT Exam: Mucous Membranes Moist - Neck Exam Neck exam: Positive for: Normal Inspection - Respiratory Exam Respiratory Exam: Decreased Breath Sounds - Cardiovascular Exam Cardiovascular Exam: REGULAR RHYTHM - GI/Abdominal Exam GI & Abdominal Exam: Normal Bowel Sounds - Exam Exam: NORMAL INSPECTION - Extremities Exam Extremities exam: Positive for: pedal edema - Back Exam Back exam: NORMAL INSPECTION - Neurological Exam Neurological exam: Alert, Oriented x3 - Psychiatric Exam Psychiatric exam: Normal Affect - Skin Skin Exam: Pallor Results - Vital Signs Recent Vital Signs: Last Vital Signs Temp 98.3 F 11/13/18 17:21 Pulse 101 H 11/13/18 17:21 Resp 20 11/13/18 17:21 BP 114/53 L 11/13/18 17:21 Pulse Ox 100 11/13/18 17:21 - Labs Result Diagrams: 11/13/18 09:50 11/13/18 10:32 Labs: Laboratory Results - last 24 hr 11/13/18 11/13/18 11/13/18 09:50 09:50 09:50 WBC 2.7 L RBC 3.25 L Hgb 10.1 L Hct 30.2 L MCV 92.9 MCH 31.2 H MCHC 33.6 RDW 18.2 H Plt Count 111 L D MPV 7.9 Neut % (Auto) 31.2 L Lymph % (Auto) 36.5 [place] % (Auto) 29.2 H Eos % (Auto) 2.3 Baso % (Auto) 0.8 Neut # (Auto) 0.8 L Lymph # (Auto) 1.0 [place] # (Auto) 0.8 Eos # (Auto) 0.1 Baso # (Auto) 0.0 Neutrophils % (Manual) 35 L Band Neutrophils % 2 Lymphocytes % (Manual) 35 Monocytes % (Manual) 24 H Eosinophils % (Manual) 4 Platelet Estimate Slightly decreased L Anisocytosis (manual) Slight PT 18.9 H INR 1.7 APTT 32 D-Dimer, Quantitative 626 H Sodium Potassium Chloride Carbon Dioxide Anion Gap BUN Creatinine Est GFR ( Amer) Est GFR (Non-Af Amer) Random Glucose Calcium Magnesium Total Bilirubin AST ALT Alkaline Phosphatase Ammonia 93 H D Total Creatine Kinase CK-MB (Mass) Troponin I NT-Pro-B Natriuret Pep Total Protein Albumin Globulin Albumin/Globulin Ratio Urine Color Urine Clarity Urine pH Ur Specific [place] Urine Protein Urine Glucose (UA) Urine Ketones Urine Blood Urine Nitrate Urine Bilirubin Urine Urobilinogen Ur Leukocyte Esterase Urine WBC (Auto) Urine RBC (Auto) Ur Squamous Epith Cells Urine Opiates Screen Urine Methadone Screen Ur Barbiturates Screen Ur Phencyclidine Scrn Ur Amphetamines Screen U Benzodiazepines Scrn U Oth Cocaine Metabols U Cannabinoids Screen Alcohol, Quantitative 11/13/18 11/13/18 11/13/18 10:32 10:40 10:40 WBC RBC Hgb Hct MCV MCH MCHC RDW Plt Count MPV Neut % (Auto) Lymph % (Auto) [place] % (Auto) Eos % (Auto) Baso % (Auto) Neut # (Auto) Lymph # (Auto) [place] # (Auto) Eos # (Auto) Baso # (Auto) Neutrophils % (Manual) Band Neutrophils % Lymphocytes % (Manual) Monocytes % (Manual) Eosinophils % (Manual) Platelet Estimate Anisocytosis (manual) PT INR APTT D-Dimer, Quantitative Sodium 132 Potassium 3.0 L Chloride 96 L Carbon Dioxide 30 Anion Gap 9 L BUN 7 L Creatinine 0.9 Est GFR ( Amer) > 60 Est GFR (Non-Af Amer) > 60 Random Glucose 102 Calcium 8.7 Magnesium 1.4 L Total Bilirubin 2.1 H AST 120 H ALT 33 Alkaline Phosphatase 216 H Ammonia Total Creatine Kinase 346 H CK-MB (Mass) 1.96 Troponin I 0.0580 NT-Pro-B Natriuret Pep 760 H Total Protein 7.6 Albumin 2.9 L Globulin 4.8 H Albumin/Globulin Ratio 0.6 L Urine Color Yellow Urine Clarity Clear Urine pH 7.0 Ur Specific [place] 1.006 Urine Protein Negative Urine Glucose (UA) Normal Urine Ketones Negative Urine Blood Negative Urine Nitrate Negative Urine Bilirubin Negative Urine Urobilinogen 2.0 Ur Leukocyte Esterase Neg Urine WBC (Auto) 1 Urine RBC (Auto) < 1 Ur Squamous Epith Cells 1 Urine Opiates Screen Negative Urine Methadone Screen Negative Ur Barbiturates Screen Negative Ur Phencyclidine Scrn Negative Ur Amphetamines Screen Negative U Benzodiazepines Scrn Negative U Oth Cocaine Metabols Negative U Cannabinoids Screen Negative Alcohol, Quantitative < 10 Assessment & Plan - Assessment and Plan (Free Text) Assessment: ac chest pain chf alc liver disaease alc abuse Plan: admit to telemetry psych eval and cardiology consult - Date & Time Date: 11/13/18 Time: 18:13
[2018-11-14] MEDS: Magnesium Oxide 400 mg Tab UD PO SCH ×3 (09:46→17:05)
[2018-11-14] MEDS: Multiple Vitamins Oral Solution PO SCH (09:47)
[2018-11-14] MEDS: Potassium Chloride 20 mEq ER Tab PO SCH (09:47)
--- NOTE | 2018-11-14 10:50 | CP.PCM.PN ---
Subjective - Date & Time of Evaluation Date of Evaluation: 11/14/18 Time of Evaluation: 10:47 - Subjective Subjective: pt less sob legs hurts swallen no tremors Objective - Vital Signs/Intake and Output Vital Signs (last 24 hours): Temp Pulse Resp BP Pulse Ox 98.1 F 106 H 20 100/53 L 100 11/14/18 08:59 11/14/18 08:59 11/14/18 08:59 11/14/18 08:59 11/14/18 08:59 Intake and Output: 11/14/18 11/14/18 06:59 18:59 Intake Total 0 Output Total 1050 Balance -1050 - Medications Medications: Current Medications Folic Acid (Folic Acid) 1 mg PO DAILY [facility] Last Admin: 11/14/18 09:47 Dose: 1 mg Furosemide (Lasix) 40 mg IVP DAILY [facility] Lactulose (Enulose) 20 gm PO BID [facility] Last Admin: 11/14/18 09:47 Dose: 20 gm Magnesium Oxide (Mag-Ox) 800 mg PO TID [facility] Last Admin: 11/14/18 09:46 Dose: 800 mg Multivitamins/Vitamin C (Multi-Delyn Liquid) 5 ml PO DAILY [facility] Last Admin: 11/14/18 09:47 Dose: 5 ml Potassium Chloride (K-Dur 20 Meq Er Tab) 20 meq PO DAILY [facility] Stop: 11/18/18 10:01 Last Admin: 11/14/18 09:47 Dose: 20 meq Rifaximin (Xifaxan) 550 mg PO Q12 [facility]; Protocol Last Admin: 11/14/18 09:47 Dose: 550 mg Thiamine HCl (Vitamin B1 Tab) 100 mg PO DAILY [facility] Last Admin: 11/14/18 09:47 Dose: 100 mg - Labs Labs: 11/13/18 09:50 11/13/18 10:32 PT 18.9 SECONDS (9.7-12.2) H 11/13/18 09:50 INR 1.7 11/13/18 09:50 APTT 32 SECONDS (21-34) 11/13/18 09:50 - Constitutional Appears: No Acute Distress - Head Exam Head Exam: ATRAUMATIC - Eye Exam Eye Exam: Normal appearance - ENT Exam ENT Exam: Mucous Membranes Moist - Neck Exam Neck Exam: Full ROM - Cardiovascular Exam Cardiovascular Exam: REGULAR RHYTHM - GI/Abdominal Exam GI & Abdominal Exam: Soft, Normal Bowel Sounds - Exam Exam: NORMAL INSPECTION - Extremities Exam Extremities Exam: Full ROM, Pedal Edema Additional comments: dry skin - Back Exam Back Exam: NORMAL INSPECTION - Neurological Exam Neurological Exam: Alert, Awake, Oriented x3 - Psychiatric Exam Psychiatric exam: Normal Affect - Skin Skin Exam: Pallor Assessment and Plan - Assessment and Plan (Free Text) Assessment: chf obesity alc liver disease Plan: abdominal ultrasound
--- NOTE | 2018-11-14 11:47 | VASCLAB ---
Date of service: 11/13/2018 PROCEDURE: Left Lower Extremity Venous Duplex Exam. HISTORY: Pain PRIORS: None. TECHNIQUE: Left common femoral, femoral, popliteal and posterior tibial, peroneal and great saphenous veins were evaluated. Flow was assessed with color Doppler, compressibility, assessment of phasic flow and augmentation response. Report prepared by BETITO Alicea, RVT FINDINGS: LEFT: 1. Common Femoral Vein: 1.1. Compressibility - Fully compressible: Thrombus - None : Flow - Phasic: Augmentation -Normal: Reflux - None. 2. Femoral Vein: 2.1. Compressibility - Fully compressible: Thrombus - None: Flow - Phasic: Augmentation -Normal: Reflux - None. 3. Popliteal Vein: 3.1. Compressibility - Fully compressible: Thrombus - None: Flow - Phasic: Augmentation -Normal: Reflux - None. 4. Posterior Tibial Vein: 4.1. Unable to image due to swelling. 5. Peroneal Vein: 5.1. Unable to image due to swelling. 6. Great Saphenous Vein: 6.1. Compressibility - Fully compressible: Thrombus - None: Flow - Phasic: Augmentation - Normal: Reflux - None. OTHER FINDINGS: Normal venous flow noted in the right common femoral vein. IMPRESSION: No evidence of deep or superficial vein thrombosis of the left lower extremity, as visualized. Normal valve function noted of the left side.
--- NOTE | 2018-11-14 12:03 | CP.PCM.CON ---
<Angeline Jacobs - Last Filed: 11/14/18 13:28> History of Present Illness - History of Present Illness History of Present Illness: Gastroenterology Fellow/PGY6 Fellow Consult Note 47 year old male with decompensated alcoholic cirrhosis 2/2 Hepatic encephalopathy with active alcohol abuse and Obesity presenting with request for detox. Notes mid-sternal chest pain for two days and chronic left calf pain for one month. Admits to nausea last night. Denies bowel movement yesterday. Notes basel ine bowel habit every 1-2 days. Denies vomiting, hematemesis, diarrhea, constipation, melena, hematochezia, altered sleep wake cycle, abdominal distension, pruritis, or confusion. Over ten ER visits since last discharge 10/02/18 for hepatic encephalopathy with most recent ER visit on 11/10/18 for publi c alcohol intoxication. Admits to noncompliance to Lactulose and Rifaximin since last discharge. No prior EGD or colonoscopy. Family History- denies stomach cancer, colon cancer Social History- public alcohol intoxication with ER visit on 11/10/18, admits to 6-7 beers daily, denies tobacco or illicit drug use Surgical History- cholecystectomy, appendectomy Review of Systems - Review of Systems Review of Systems: 12-point review of systems negative except for as above Past Patient History - Infectious Disease Hx of Infectious Diseases: None - Tetanus Immunizations Tetanus Immunization: Unknown - Past Medical History & Family History Past Medical History?: Yes - Past Social History Smoking Status: Never Smoked - CARDIAC Hx Atrial Fibrillation: Yes Hx Cardia Arrhythmia: Yes Hx Congestive Heart Failure: Yes Hx Hypertension: Yes Hx Pacemaker: No - PULMONARY Hx Asthma: Yes Hx Chronic Obstructive Pulmonary Disease (COPD): Yes Hx Pneumonia: Yes - NEUROLOGICAL Hx Seizures: No Hx Transient Ischemic Attacks (TIA): Yes - HEENT Hx HEENT Problems: No - RENAL Hx Chronic Kidney Disease: No - HEMATOLOGICAL/ONCOLOGICAL Hx Anemia: Yes Hx Human Immunodeficiency Virus (HIV): No - INTEGUMENTARY Hx Dermatological Problems: No - MUSCULOSKELETAL/RHEUMATOLOGICAL Hx Arthritis: Yes (KNEE) - GASTROINTESTINAL Hx Gall Bladder Disease: Yes Hx Pancreatitis: Yes - GENITOURINARY/GYNECOLOGICAL Hx Sexually Transmitted Disorders: No - PSYCHIATRIC Hx Anxiety: Yes Hx Bipolar Disorder: No Hx Depression: No Hx Schizophrenia: Yes Hx Substance Use: No - SURGICAL HISTORY Hx Appendectomy: Yes Hx Cholecystectomy: Yes Hx Coronary Artery Bypass Graft: No Hx Coronary Stent: No Hx Tonsillectomy: No - ANESTHESIA Hx Anesthesia: Yes Hx Anesthesia Reactions: No Hx Malignant Hyperthermia: No Meds Allergies/Adverse Reactions: Allergies Allergy/AdvReac Type Severity Reaction Status Date / Time No Known Allergies Allergy Verified 11/13/18 08:44 - Medications Medications: Current Medications Folic Acid (Folic Acid) 1 mg PO DAILY [facility] Last Admin: 11/14/18 09:47 Dose: 1 mg Furosemide (Lasix) 40 mg IVP DAILY [facility] Last Admin: 11/14/18 11:31 Dose: 40 mg Lactulose (Enulose) 20 gm PO BID [facility] Last Admin: 11/14/18 09:47 Dose: 20 gm Magnesium Oxide (Mag-Ox) 800 mg PO TID [facility] Last Admin: 11/14/18 09:46 Dose: 800 mg Multivitamins/Vitamin C (Multi-Delyn Liquid) 5 ml PO DAILY [facility] Last Admin: 11/14/18 09:47 Dose: 5 ml Potassium Chloride (K-Dur 20 Meq Er Tab) 20 meq PO DAILY [facility] Stop: 11/18/18 10:01 Last Admin: 11/14/18 09:47 Dose: 20 meq Rifaximin (Xifaxan) 550 mg PO Q12 [facility]; Protocol Last Admin: 11/14/18 09:47 Dose: 550 mg Thiamine HCl (Vitamin B1 Tab) 100 mg PO DAILY [facility] Last Admin: 11/14/18 09:47 Dose: 100 mg Physical Exam - Constitutional Appears: Non-toxic, No Acute Distress - Head Exam Head Exam: ATRAUMATIC, NORMOCEPHALIC - Eye Exam Eye Exam: EOMI, PERRL, Scleral icterus Pupil Exam: PERRL. absent: Miosis, Mydriatic - ENT Exam ENT Exam: Mucous Membranes Moist, Normal Oropharynx - Neck Exam Neck exam: Positive for: Full Rom, Normal Inspection - Respiratory Exam Respiratory Exam: Clear to Auscultation Bilateral. absent: Rales, Rhonchi, Wheezes - Cardiovascular Exam Cardiovascular Exam: Tachycardia, +S1, +S2. absent: Gallop, Rubs - GI/Abdominal Exam GI & Abdominal Exam: Normal Bowel Sounds, Organomegaly, Soft. absent: Distended, Firm, Guarding, Rebound, Rigid, Tenderness - Extremities Exam Extremities exam: Positive for: normal inspection, pedal edema - Neurological Exam Neurological exam: Alert, Oriented x3 Additional comments: no asterixis - Psychiatric Exam Psychiatric exam: Normal Affect, Normal Mood - Skin Skin Exam: Dry, Intact, Normal Color, Warm Results - Vital Signs Recent Vital Signs: Last Vital Signs Temp 98.1 F 11/14/18 08:59 Pulse 106 H 11/14/18 08:59 Resp 20 11/14/18 08:59 BP 110/69 11/14/18 11:31 Pulse Ox 100 11/14/18 08:59 - Labs Result Diagrams: 11/13/18 09:50 11/14/18 11:23 Labs: Laboratory Results - last 24 hr 11/13/18 10:32 Sodium 132 Potassium 3.0 L Chloride 96 L Carbon Dioxide 30 Anion Gap 9 L BUN 7 L Creatinine 0.9 Est GFR ( Amer) > 60 Est GFR (Non-Af Amer) > 60 Random Glucose 102 Calcium 8.7 Magnesium 1.4 L Total Bilirubin 2.1 H AST 120 H ALT 33 Alkaline Phosphatase 216 H Total Creatine Kinase 346 H CK-MB (Mass) 1.96 Troponin I 0.0580 NT-Pro-B Natriuret Pep 760 H Total Protein 7.6 Albumin 2.9 L Globulin 4.8 H Albumin/Globulin Ratio 0.6 L Alcohol, Quantitative < 10 Assessment & Plan - Assessment and Plan (Free Text) Assessment: 47 year old male with decompensated alcoholic cirrhosis 2/2 Hepatic encephalopathy with active alcohol abuse and Obesity presenting with request for detox. Last discharge 10/02/18 for hepatic encephalopathy with most recent ER visit on 11/10/18 for public alcohol intoxication. Active treatment of alcoholic cirrhosis with noncompliance to Lactulose and Rifaximin since last discharge. No prior EGD or colonoscopy. Plan: -MELD-Na 20 -alcohol cessation counselling provided -medication compliance counselling provided -continue Lactulose 20mg BID, titrate to 3-4 bowel movements and rifaxamin 550mg BID for hepatic encephalopathy prevention -low sodium diet -supportive care: anti-emetic PRN, Pepcid QHS-negative drug screen and ETOH <10 -prior CT 10/22/18 noted possible pancreatic head inflammation with recommendation for CT pancreatic protocol -findings likely in setting of active alcohol use -follow up CT triple phase protocol ordered by hepatobiliary surgery -pending Duplex U/S -09/15/18 Ultrasound- no hepatic lesion, extensive variceal disease -will benefit from elective EGD for variceal screening -will benefit from elective colonoscopy for colorectal cancer screening and previous history of BRBPR on last admission -will follow clinical course <Ashish Kerr - Last Filed: 11/15/18 09:46> Meds - Medications Medications: Current Medications Folic Acid (Folic Acid) 1 mg PO DAILY [facility] Last Admin: 11/14/18 09:47 Dose: 1 mg Furosemide (Lasix) 40 mg IVP DAILY [facility] Last Admin: 11/14/18 11:31 Dose: 40 mg Lactulose (Enulose) 20 gm PO BID [facility] Last Admin: 11/14/18 17:05 Dose: 20 gm Magnesium Oxide (Mag-Ox) 800 mg PO TID [facility] Last Admin: 11/14/18 17:05 Dose: 800 mg Morphine Sulfate (Morphine) 2 mg IVP ONCE ONE Stop: 11/15/18 09:46 Multivitamins/Vitamin C (Multi-Delyn Liquid) 5 ml PO DAILY [facility] Last Admin: 11/14/18 09:47 Dose: 5 ml Potassium Chloride (K-Dur 20 Meq Er Tab) 20 meq PO DAILY [facility] Stop: 11/18/18 10:01 Last Admin: 11/14/18 09:47 Dose: 20 meq Rifaximin (Xifaxan) 550 mg PO Q12 [facility]; Protocol Last Admin: 11/14/18 22:44 Dose: 550 mg Thiamine HCl (Vitamin B1 Tab) 100 mg PO DAILY [facility] Last Admin: 11/14/18 09:47 Dose: 100 mg Results - Vital Signs Recent Vital Signs: Last Vital Signs Temp 98.0 F 11/15/18 08:26 Pulse 102 H 11/15/18 08:26 Resp 20 11/15/18 08:26 BP 121/65 11/15/18 08:26 Pulse Ox 98 11/15/18 08:26 - Labs Result Diagrams: 11/15/18 07:57 11/15/18 09:11 Labs: Laboratory Results - last 24 hr 11/14/18 11/14/18 11/15/18 11:23 11:23 07:57 WBC 2.7 L RBC 3.26 L Hgb 10.2 L Hct 30.7 L MCV 94.3 H MCH 31.3 H MCHC 33.2 RDW 18.0 H Plt Count 129 L MPV 7.7 PT INR Sodium 133 Potassium 2.7 L Chloride 98 Carbon Dioxide 29 Anion Gap 9 L BUN 7 L Creatinine 0.8 Est GFR ( Amer) > 60 Est GFR (Non-Af Amer) > 60 Random Glucose 79 D Calcium 8.2 L Phosphorus 3.1 Magnesium 1.3 L Total Bilirubin 1.9 H Direct Bilirubin AST 91 H D ALT 27 Alkaline Phosphatase 167 H D Ammonia 124 H D Total Protein 6.8 Albumin 2.4 L Globulin 4.4 H Albumin/Globulin Ratio 0.6 L 11/15/18 11/15/18 07:57 09:11 WBC RBC Hgb Hct MCV MCH MCHC RDW Plt Count MPV PT 19.5 H INR 1.8 Sodium 131 L Potassium 2.8 L Chloride 95 L Carbon Dioxide 30 Anion Gap 9 L BUN 6 L Creatinine 0.8 Est GFR ( Amer) > 60 Est GFR (Non-Af Amer) > 60 Random Glucose 87 Calcium 8.0 L Phosphorus Magnesium 1.5 L Total Bilirubin 1.8 H Direct Bilirubin 0.5 H AST 94 H ALT 32 Alkaline Phosphatase 184 H Ammonia Total Protein 7.2 Albumin 2.6 L Globulin 4.6 H Albumin/Globulin Ratio 0.6 L Attending/Attestation - Attestation I have personally seen and examined this patient.: Yes I have fully participated in the care of the patient.: Yes I have reviewed all pertinent clinical information: Yes Notes (Text): 11/15/18 09:38 I have seen and examined patient with GI fellow. Agree with above documentation with the following additions. In brief, this is a 47 year old male with decompensated ETOH cirrhosis, hepatic encephalopathy, obesity (BMI 50), who presents to hospital for detoxification. He notes bowel movements twice daily but admits to non-compliance with home lactulose regimen. He also reports lower extremity swelling which has gotten progressively worse over the past one month. He denies abdominal pain, nausea, vomiting, fever/chills, weight loss, rectal bleeding, melena, jaundice, pruritis. He continues to abuse ETOH, last drink 5 days ago. No prior endoscopic evaluation. Decompensated ETOH cirrhosis - admission MELD 20 Obesity - Low sodium diet as tolerated - Continue with lactulose regimen for HE prevention, titrate so patient has 3-4 bowel movements daily - Multi-phasic CT liver ordered by hepatobiliary surgical team, follow up results - H/H stable, continue to monitor - Patient would benefit from endoscopic evaluation with EGD for variceal screening - Will continue to monitor patient clinical course
[2018-11-14 12:08] LABS: ALB/GLOB RATIO 0.6 (1.0-2.1); ALBUMIN 2.4 g/dL (3.5-5.0); ALT/SGPT 27 U/L (21-72); AST/SGOT 91 U/L (17-59); BLOOD UREA NITROGEN 7 mg/dL (9-20); CALCIUM 8.2 mg/dl (8.6-10.4); GFR NON-AFRICAN AMERICAN > 60
[2018-11-14] MEDS ORDERED: Iodixanol 320 MG/ML 100 ML BOTTLE IV ONE (13:19)
[2018-11-14] MEDS: Magnesium Sulfate 1 gm in D5W 1 GM/100 ML BAG IVPB SCH ×2 (13:45→13:54)
--- NOTE | 2018-11-14 14:36 | CP.PCM.CON ---
History of Present Illness - History of Present Illness History of Present Illness: 47 year old morbidly obese male with alcoholic cirrhosis admitted for chest pain. Notes last drink 10 days ago. Currently being treated by GI for minimal encephalopathy with lactulose/Xifaxan. Denies GI bleed or history of ascites or need for paracentesis. Admitted early September for encephalopathy and seen in ER for intoxication. Review of Systems - Constitutional Constitutional: As Per HPI - EENT Eyes: As Per HPI Ears: As Per HPI - Cardiovascular Cardiovascular: As Per HPI - Respiratory Respiratory: As Per HPI - Gastrointestinal Gastrointestinal: As Per HPI - Genitourinary Genitourinary: As Per HPI - Musculoskeletal Musculoskeletal: As Per HPI - Integumentary Integumentary: As Per HPI - Neurological Neurological: As Per HPI - Psychiatric Psychiatric: As Per HPI - Endocrine Endocrine: As Per HPI - Hematologic/Lymphatic Hematologic: As Per HPI Past Patient History - Infectious Disease Hx of Infectious Diseases: None - Tetanus Immunizations Tetanus Immunization: Unknown - Past Medical History & Family History Past Medical History?: Yes - Past Social History Smoking Status: Never Smoked Alcohol: > 2 Drinks/Day - CARDIAC Hx Atrial Fibrillation: Yes Hx Cardia Arrhythmia: Yes Hx Congestive Heart Failure: Yes Hx Hypertension: Yes Hx Pacemaker: No - PULMONARY Hx Asthma: Yes Hx Chronic Obstructive Pulmonary Disease (COPD): Yes Hx Pneumonia: Yes - NEUROLOGICAL Hx Seizures: No Hx Transient Ischemic Attacks (TIA): Yes - HEENT Hx HEENT Problems: No - RENAL Hx Chronic Kidney Disease: No - HEMATOLOGICAL/ONCOLOGICAL Hx Anemia: Yes Hx Human Immunodeficiency Virus (HIV): No - INTEGUMENTARY Hx Dermatological Problems: No - MUSCULOSKELETAL/RHEUMATOLOGICAL Hx Arthritis: Yes (KNEE) - GASTROINTESTINAL Hx Gall Bladder Disease: Yes Hx Pancreatitis: Yes - GENITOURINARY/GYNECOLOGICAL Hx Sexually Transmitted Disorders: No - PSYCHIATRIC Hx Anxiety: Yes Hx Bipolar Disorder: No Hx Depression: No Hx Schizophrenia: Yes Hx Substance Use: No - SURGICAL HISTORY Hx Appendectomy: Yes Hx Cholecystectomy: Yes Hx Coronary Artery Bypass Graft: No Hx Coronary Stent: No Hx Tonsillectomy: No - ANESTHESIA Hx Anesthesia: Yes Hx Anesthesia Reactions: No Hx Malignant Hyperthermia: No Meds Allergies/Adverse Reactions: Allergies Allergy/AdvReac Type Severity Reaction Status Date / Time No Known Allergies Allergy Verified 11/13/18 08:44 - Medications Medications: Current Medications Folic Acid (Folic Acid) 1 mg PO DAILY [facility] Last Admin: 11/14/18 09:47 Dose: 1 mg Furosemide (Lasix) 40 mg IVP DAILY [facility] Last Admin: 11/14/18 11:31 Dose: 40 mg Potassium Chloride (Potassium Chloride 20 Meq/100 Ml) 20 meq in 100 mls @ 50 mls/hr IVPB Q2 [facility] Stop: 11/14/18 19:59 Last Admin: 11/14/18 13:53 Dose: 50 mls/hr Lactulose (Enulose) 20 gm PO BID [facility] Last Admin: 11/14/18 09:47 Dose: 20 gm Magnesium Oxide (Mag-Ox) 800 mg PO TID [facility] Last Admin: 11/14/18 13:59 Dose: 800 mg Multivitamins/Vitamin C (Multi-Delyn Liquid) 5 ml PO DAILY [facility] Last Admin: 11/14/18 09:47 Dose: 5 ml Potassium Chloride (K-Dur 20 Meq Er Tab) 20 meq PO DAILY [facility] Stop: 11/18/18 10:01 Last Admin: 11/14/18 09:47 Dose: 20 meq Rifaximin (Xifaxan) 550 mg PO Q12 [facility]; Protocol Last Admin: 11/14/18 09:47 Dose: 550 mg Thiamine HCl (Vitamin B1 Tab) 100 mg PO DAILY [facility] Last Admin: 11/14/18 09:47 Dose: 100 mg Physical Exam - Constitutional Appears: Unkempt, Older Than Stated Age - Head Exam Head Exam: NORMAL INSPECTION - Eye Exam Eye Exam: Scleral icterus - Respiratory Exam Respiratory Exam: Clear to Auscultation Bilateral - Cardiovascular Exam Cardiovascular Exam: REGULAR RHYTHM - GI/Abdominal Exam GI & Abdominal Exam: Normal Bowel Sounds, Soft Additional comments: obese - Rectal Exam Rectal Exam: Deferred - Neurological Exam Neurological exam: Alert Additional comments: appropriated to questions in Lebanese Results - Vital Signs Recent Vital Signs: Last Vital Signs Temp 98.1 F 11/14/18 08:59 Pulse 106 H 11/14/18 08:59 Resp 20 11/14/18 08:59 BP 110/69 11/14/18 11:31 Pulse Ox 100 11/14/18 08:59 - Labs Result Diagrams: 11/13/18 09:50 11/14/18 11:23 Labs: Laboratory Results - last 24 hr 11/14/18 11/14/18 11:23 11:23 Sodium 133 Potassium 2.7 L Chloride 98 Carbon Dioxide 29 Anion Gap 9 L BUN 7 L Creatinine 0.8 Est GFR ( Amer) > 60 Est GFR (Non-Af Amer) > 60 Random Glucose 79 D Calcium 8.2 L Phosphorus 3.1 Magnesium 1.3 L Total Bilirubin 1.9 H AST 91 H D ALT 27 Alkaline Phosphatase 167 H D Ammonia 124 H D Total Protein 6.8 Albumin 2.4 L Globulin 4.4 H Albumin/Globulin Ratio 0.6 L WBC 2.7 K/uL (4.8-10.8) L 11/13/18 09:50 RBC 3.25 Mil/uL (4.40-5.90) L 11/13/18 09:50 Hgb 10.1 g/dL (12.0-18.0) L 11/13/18 09:50 Hct 30.2 % (35.0-51.0) L 11/13/18 09:50 MCV 92.9 fL (80.0-94.0) 11/13/18 09:50 MCH 31.2 pg (27.0-31.0) H 11/13/18 09:50 MCHC 33.6 g/dL (33.0-37.0) 11/13/18 09:50 RDW 18.2 % (11.5-14.5) H 11/13/18 09:50 Plt Count 111 K/uL (130-400) L D 11/13/18 09:50 MPV 7.9 fL (7.2-11.7) 11/13/18 09:50 PT 18.9 SECONDS (9.7-12.2) H 11/13/18 09:50 INR 1.7 11/13/18 09:50 APTT 32 SECONDS (21-34) 11/13/18 09:50 Assessment & Plan (1) Liver cirrhosis Assessment and Plan: 47 year old Latin male obese alcoholic compounded by possible CEDEÑO. Clear patient needs to remain abstinent. Recommend baclofen 5 mg TID to reduce alcohol craving. However given medication is TID, I anticipate low compliance. It may be worth having psych see him for an alternative easier regimen. Given he has pedal edema and likely alcoholic hepatitis, would not start diuretics yet. But, wait and see if edema resolves with abstinence. He had a chest CT. There was obvious cirrhosis, but no ascites. His creatinine is < 1.0. Given his obesity and cirrhosis, ultrasound of the liver is less likely to be sufficient for HCC surveillance. He should have a 4 phase CAT scan (late arterial, late portal, and 3 min delayed venous imaging. I gave in my card to follow up in the office Status: Acute
--- NOTE | 2018-11-14 16:26 | US ---
Date of service: 2018-11-14 15:00:02 HISTORY: Alcoholic liver disease; rule out ascites. COMPARISON: Comparison made with prior ultrasound 09/15/2018.. Comparison also made with CT scan of CTA of the chest and CT scan abdomen pelvis dated 11/13/2018 and 11/14/2018 respectively. TECHNIQUE: Sonographic evaluation of the abdomen. FINDINGS: LIVER: Measures 12.2 cm. Liver exhibits nodular contour and increased echotexture consistent with patient's history hepatic cirrhosis.... No mass. No intrahepatic bile duct dilatation. No obvious ascites identified. No flow seen in the portal vein. GALLBLADDER: Unremarkable. No gallstones. No sonographic Hernandez sign. COMMON BILE DUCT: Common bile duct appears dilated measuring approximately 8.0 mm. No stones.. PANCREAS: Pancreas is poorly delineated to body habitus and bowel gas. RIGHT KIDNEY: Measures 11.0 x 6.5 x 4.7cm. Normal echogenicity. No calculus, mass, or hydronephrosis. There is a small cyst right kidney that measures approximately 1.8 x 1.8 x 1.8 cm LEFT KIDNEY: Measures 12.2 x 6.6 x 5.2cm. Normal echogenicity. No calculus, mass, or hydronephrosis. SPLEEN: Spleen remains enlarged measuring approximately 15.7 x 5.7 x 5.6 cm. No splenic masses collections or calcifications... AORTA: No aneurysmal dilatation. IVC: Unremarkable. OTHER FINDINGS: None. IMPRESSION: Findings consistent with hepatic cirrhosis. No flow is identified within the portal vein. No evidence of ascites. Hepatomegaly. Mild dilatation common bile duct measuring 8 mm. Small cyst right kidney. Pancreas is poorly delineated due to body habitus and bowel gas.
--- NOTE | 2018-11-14 17:16 | CT ---
Date of service: 11/14/2018 PROCEDURE: CT Abdomen and Pelvis with and without intravenous contrast HISTORY: alcohol/CEDEÑO cirrhosis rule out liver cancer COMPARISON: 10/22/2018 CT abdomen and pelvis and CT abdomen and pelvis 01/12/2015 TECHNIQUE: Axial images of the abdomen were obtained in the pre contrast, portal venous and delayed phases of enhancement. Coronal and sagittal reformats were generated. Contrast dose: 100 mL Visipaque 320 Radiation dose: Total exam DLP = 3458.68 mGy-cm. This CT exam was performed using one or more of the following dose reduction techniques: Automated exposure control, adjustment of the mA and/or kV according to patient size, and/or use of iterative reconstruction technique. FINDINGS: LOWER THORAX: Large heart. No pericardial effusion. The paraesophageal varices. LIVER: The liver is grossly abnormal in contour and morphology with fine micro nodular contour compatible with cirrhosis. There is an area of relative hypodensity largely encircling the inferior vena cava and caudate nucleus having a exophytic like inferior extent to it. This relative masslike hypodense area on series 8, image 34 that at 60 sec post contrast enhancement is similar in hypodensity relative to the surrounding liver parenchyma with a 01/12/2015 CT study series 2, image 21. This length of stability more commonly seen in benign etiologies than a liver malignancy. The etiology of it however is indeterminate. No change in caliber of the IVC is seen. No compression of the IVC or flattening of its anterior border is seen. . No gross ductal dilatation. Concomitant diffuse fatty infiltration of the liver inferred. GALLBLADDER AND BILE DUCTS: Unremarkable. PANCREAS: No interval mass appreciated. There is splinter like hyperdensity inferred as calcification bordering the superior mesenteric vein similar to the more recent study benign present or appreciated on the 2014 study. There paucity of peripancreatic fat on some of the images. However there is less amorphous increased density of the surrounding peripancreatic fat compared the prior studies. A incidental duodenal diverticulum is unchanged with the 10/22/2018 study. SPLEEN: Spleen is borderline prominent measuring 14 cm no significant change with the 10/22/2018 study noted. No splenic masses seen. Innumerable large varices surround the spleen border left kidney and/or peripancreatic and in the bev hepatis region. No gross thrombus in the portal vein seen. ADRENALS: Unremarkable. No mass. KIDNEYS AND URETERS: No hydronephrosis. In the lower pole the right kidney there is a 2 cm hypodense-a cyst is favored-however this is difficult to see with certainty on prior studies could be due to differences in technique making the current study of it more conspicuous.-recommend renal ultrasound for confirmation. This should be evident with ultrasound. VASCULATURE: Extensive varices present Soft the geode portal venous peripancreatic splenic and bordering left kidney No aortic aneurysm. No aortic atherosclerotic calcification or mural plaque present. BOWEL: Unremarkable. No obstruction. No gross mural thickening. APPENDIX: Not identified with certainty. No pericecal inflammatory changes seen PERITONEUM: No gross free air. No gross fluid on these images. LYMPH NODES: Unremarkable. No enlarged lymph nodes. BLADDER: Not visualized REPRODUCTIVE: Not visualized BONES: No acute fracture. These thoraco lumbar spondylosis. OTHER FINDINGS: None. IMPRESSION: The masslike hypodensity encircling the inferior vena cava involving the caudate lobe and also inferiorly somewhat exophytic in appearance is similar in its size and appearance with the 01/12/2015 study patient with cirrhosis. Given this length of stability-benign intra hepatic/exophytic mass is favored. Fatty liver changes. No dilated ducts. Innumerable extensive varices noted no portal vein thrombosis seen. Probable right lower renal pole renal cyst. More conspicuous on this exam no gross enhancement-consider targeted right renal ultrasound for characterization. Other findings as above. Comments: Please note that the images are not the continuing all the way down into the symphysis pubis. The reason for this is unclear.
[2018-11-15 08:07] LABS: HEMOGLOBIN 10.2 g/dL (12.0-18.0); WHITE BLOOD COUNT 2.7 K/uL (4.8-10.8)
[2018-11-15 08:13] LABS: MEAN CELL VOLUME 94.3 fL (80.0-94.0); MEAN CORPUSCULAR HEMOGLOBIN 31.3 pg (27.0-31.0); MEAN CORPUSCULAR HGB CONC 33.2 g/dL (33.0-37.0); MEAN PLATELET VOLUME 7.7 fL (7.2-11.7); RBC 3.26 Mil/uL (4.40-5.90)
[2018-11-15 08:19] LABS: INR 1.8; PROTHROMBIN TIME 19.5 SECONDS (9.7-12.2)
[2018-11-15 09:29] LABS: ALB/GLOB RATIO 0.6 (1.0-2.1); ALBUMIN 2.6 g/dL (3.5-5.0); ALT/SGPT 32 U/L (21-72); AST/SGOT 94 U/L (17-59); BILIRUBIN,DIRECT 0.5 mg/dL (0.0-0.4); BLOOD UREA NITROGEN 6 mg/dL (9-20); GFR NON-AFRICAN AMERICAN > 60
[2018-11-15] MEDS: Potassium Chloride 20 mEq ER Tab PO SCH (09:45)
[2018-11-15] MEDS: Magnesium Oxide 400 mg Tab UD PO SCH ×3 (09:45→17:48)
[2018-11-15] MEDS: Multiple Vitamins Oral Solution PO SCH (09:45)
[2018-11-15] MEDS ORDERED: Influenza Vaccine 60 mcg/0.5 mL SYR (4YR UP) IM ONE ×2 (10:00)
--- NOTE | 2018-11-15 10:07 | CP.PCM.PN ---
<Angeline Jacobs - Last Filed: 11/15/18 10:28> Subjective - Date & Time of Evaluation Date of Evaluation: 11/15/18 Time of Evaluation: 10:04 - Subjective Subjective: Gastroenterology Fellow/PGY6 Progress Note Patient denies abdominal pain. Tolerating low sodium diet. Notes one bowel movement yesterday. A 12-point review of systems negative except for as above. Objective - Vital Signs/Intake and Output Vital Signs (last 24 hours): Temp Pulse Resp BP Pulse Ox 98.0 F 102 H 20 159/76 H 98 11/15/18 08:26 11/15/18 08:26 11/15/18 08:26 11/15/18 09:45 11/15/18 08:26 - Medications Medications: Current Medications Folic Acid (Folic Acid) 1 mg PO DAILY [facility] Last Admin: 11/15/18 09:45 Dose: 1 mg Furosemide (Lasix) 40 mg IVP DAILY [facility] Last Admin: 11/15/18 09:45 Dose: 40 mg Lactulose (Enulose) 20 gm PO BID [facility] Last Admin: 11/15/18 09:46 Dose: 20 gm Magnesium Oxide (Mag-Ox) 800 mg PO TID [facility] Last Admin: 11/15/18 09:45 Dose: 800 mg Multivitamins/Vitamin C (Multi-Delyn Liquid) 5 ml PO DAILY [facility] Last Admin: 11/15/18 09:45 Dose: 5 ml Potassium Chloride (K-Dur 20 Meq Er Tab) 20 meq PO DAILY [facility] Stop: 11/18/18 10:01 Last Admin: 11/15/18 09:45 Dose: 20 meq Rifaximin (Xifaxan) 550 mg PO Q12 [facility]; Protocol Last Admin: 11/15/18 09:45 Dose: 550 mg Thiamine HCl (Vitamin B1 Tab) 100 mg PO DAILY [facility] Last Admin: 11/15/18 09:45 Dose: 100 mg - Labs Labs: 11/15/18 07:57 11/15/18 09:11 PT 19.5 SECONDS (9.7-12.2) H 11/15/18 07:57 INR 1.8 11/15/18 07:57 APTT 32 SECONDS (21-34) 11/13/18 09:50 - Constitutional Appears: Non-toxic, No Acute Distress - Head Exam Head Exam: ATRAUMATIC, NORMOCEPHALIC - Eye Exam Eye Exam: EOMI, PERRL. absent: Scleral icterus Pupil Exam: absent: Miosis, Mydriatic - ENT Exam ENT Exam: Mucous Membranes Moist, Normal Oropharynx - Neck Exam Neck Exam: Full ROM, Normal Inspection - Respiratory Exam Respiratory Exam: Clear to Ausculation Bilateral. absent: Rales, Rhonchi, Wheezes - Cardiovascular Exam Cardiovascular Exam: RRR, +S1, +S2 - GI/Abdominal Exam GI & Abdominal Exam: Soft, Normal Bowel Sounds, Organomegaly. absent: Distended, Firm, Guarding, Rigid, Tenderness, Rebound - Extremities Exam Extremities Exam: Normal Inspection, Pedal Edema - Neurological Exam Neurological Exam: Alert, Awake, Oriented x3 - Psychiatric Exam Psychiatric exam: Normal Affect, Normal Mood - Skin Skin Exam: Dry, Intact, Normal Color, Warm Assessment and Plan - Assessment and Plan (Free Text) Assessment: 47 year old male with decompensated alcoholic cirrhosis 2/2 Hepatic encephalopathy with active alcohol abuse and Obesity presenting with request for detox. Last discharge 10/02/18 for hepatic encephalopathy with most recent ER visit on 11/10/18 for public alcohol intoxication. Active treatment of decompensated alcoholic cirrhosis with noncompliance to Lactulose and Rifaximin since last discharge. No prior EGD or colonoscopy. Plan: -11/15/18 MELD-Na 21 -CT liver protocol- hypodensity encircling IVC and caudate nucleus, without compression, unchanged from 12/2014 -Duplex U/S-no flow in portal vein, noted bidirectional flow on Ultrasound 09/15/18 -02/2018 Ultrasound- normal flow in portal vein -hepatobiliary surgery- follow up recommendations -continue Lactulose 20mg BID, titrate to 3-4 bowel movements and Rifaxamin 550mg BID for hepatic encephalopathy prevention -low sodium diet -will benefit from elective EGD for variceal screening -will benefit from elective colonoscopy for colorectal cancer screening and previous history of BRBPR on last admission -will follow clinical course <Ashish Kerr - Last Filed: 11/15/18 11:02> Objective - Vital Signs/Intake and Output Vital Signs (last 24 hours): Temp Pulse Resp BP Pulse Ox 98.0 F 102 H 20 159/76 H 98 11/15/18 08:26 11/15/18 08:26 11/15/18 08:26 11/15/18 09:45 11/15/18 08:26 - Medications Medications: Current Medications Folic Acid (Folic Acid) 1 mg PO DAILY [facility] Last Admin: 11/15/18 09:45 Dose: 1 mg Furosemide (Lasix) 40 mg IVP DAILY [facility] Last Admin: 11/15/18 09:45 Dose: 40 mg Potassium Chloride (Potassium Chloride 20 Meq/100 Ml) 20 meq in 100 mls @ 50 mls/hr IVPB Q2 [facility] Stop: 11/15/18 15:59 Lactulose (Enulose) 20 gm PO BID [facility] Last Admin: 11/15/18 09:46 Dose: 20 gm Magnesium Oxide (Mag-Ox) 800 mg PO TID [facility] Last Admin: 11/15/18 09:45 Dose: 800 mg Multivitamins/Vitamin C (Multi-Delyn Liquid) 5 ml PO DAILY [facility] Last Admin: 11/15/18 09:45 Dose: 5 ml Potassium Chloride (K-Dur 20 Meq Er Tab) 20 meq PO DAILY [facility] Stop: 11/18/18 10:01 Last Admin: 11/15/18 09:45 Dose: 20 meq Rifaximin (Xifaxan) 550 mg PO Q12 [facility]; Protocol Last Admin: 11/15/18 09:45 Dose: 550 mg Thiamine HCl (Vitamin B1 Tab) 100 mg PO DAILY [facility] Last Admin: 11/15/18 09:45 Dose: 100 mg - Labs Labs: 11/15/18 07:57 11/15/18 09:11 PT 19.5 SECONDS (9.7-12.2) H 11/15/18 07:57 INR 1.8 11/15/18 07:57 APTT 32 SECONDS (21-34) 11/13/18 09:50 Attending/Attestation - Attestation I have personally seen and examined this patient.: Yes I have fully participated in the care of the patient.: Yes I have reviewed all pertinent clinical information, including history, physical exam and plan: Yes Notes (Text): 11/15/18 10:57 I have seen and examined patient with GI fellow. No acute events overnight, he is seen resting in bed comfortably. He denies abdominal pain, nausea, vomiting, fever/chills. Tolerating PO diet without difficulty. Review of vitals from today shows tachycardia and elevated BP. Decompensated ETOH cirrhosis Obesity CT liver reviewed by me showing stable appearance of hepatic hypodensity near IVC, PVT - Low sodium diet as tolerated - Continue with lactulose and xifaxan for HE prevention, titrate so patient has 3-4 bowel movements daily - Follow up hepatobiliary surgical recommendations given stable appearing liver lesion - Obtain AFP - Patient would benefit from EGD for variceal screening, will consider while inpatient. Will continue to monitor patient clinical course.
--- NOTE | 2018-11-15 11:01 | CP.PCM.PN ---
Subjective - Date & Time of Evaluation Date of Evaluation: 11/15/18 Time of Evaluation: 10:59 - Subjective Subjective: pt still feels congested coughing sob Objective - Vital Signs/Intake and Output Vital Signs (last 24 hours): Temp Pulse Resp BP Pulse Ox 98.0 F 102 H 20 159/76 H 98 11/15/18 08:26 11/15/18 08:26 11/15/18 08:26 11/15/18 09:45 11/15/18 08:26 - Medications Medications: Current Medications Folic Acid (Folic Acid) 1 mg PO DAILY [facility] Last Admin: 11/15/18 09:45 Dose: 1 mg Furosemide (Lasix) 40 mg IVP DAILY [facility] Last Admin: 11/15/18 09:45 Dose: 40 mg Potassium Chloride (Potassium Chloride 20 Meq/100 Ml) 20 meq in 100 mls @ 50 mls/hr IVPB Q2 [facility] Stop: 11/15/18 15:59 Lactulose (Enulose) 20 gm PO BID [facility] Last Admin: 11/15/18 09:46 Dose: 20 gm Magnesium Oxide (Mag-Ox) 800 mg PO TID [facility] Last Admin: 11/15/18 09:45 Dose: 800 mg Multivitamins/Vitamin C (Multi-Delyn Liquid) 5 ml PO DAILY [facility] Last Admin: 11/15/18 09:45 Dose: 5 ml Potassium Chloride (K-Dur 20 Meq Er Tab) 20 meq PO DAILY [facility] Stop: 11/18/18 10:01 Last Admin: 11/15/18 09:45 Dose: 20 meq Rifaximin (Xifaxan) 550 mg PO Q12 [facility]; Protocol Last Admin: 11/15/18 09:45 Dose: 550 mg Thiamine HCl (Vitamin B1 Tab) 100 mg PO DAILY [facility] Last Admin: 11/15/18 09:45 Dose: 100 mg - Labs Labs: 11/15/18 07:57 11/15/18 09:11 PT 19.5 SECONDS (9.7-12.2) H 11/15/18 07:57 INR 1.8 11/15/18 07:57 APTT 32 SECONDS (21-34) 11/13/18 09:50 - Constitutional Appears: Non-toxic - Head Exam Head Exam: ATRAUMATIC - Eye Exam Additional comments: blind - ENT Exam ENT Exam: Mucous Membranes Moist - Neck Exam Neck Exam: Full ROM - Respiratory Exam Respiratory Exam: Rales - Cardiovascular Exam Cardiovascular Exam: REGULAR RHYTHM - GI/Abdominal Exam GI & Abdominal Exam: Normal Bowel Sounds - Exam Exam: NORMAL INSPECTION - Extremities Exam Extremities Exam: Normal Inspection - Back Exam Back Exam: NORMAL INSPECTION - Neurological Exam Neurological Exam: Alert, Awake, Oriented x3 - Psychiatric Exam Psychiatric exam: Normal Affect - Skin Skin Exam: Pallor Assessment and Plan - Assessment and Plan (Free Text) Assessment: chf pnumonia ri aneamia Plan: cont as per orders
--- NOTE | 2018-11-15 11:14 | CP.PCM.PN ---
Subjective - Date & Time of Evaluation Date of Evaluation: 11/15/18 Time of Evaluation: 11:13 Objective - Vital Signs/Intake and Output Vital Signs (last 24 hours): Temp Pulse Resp BP Pulse Ox 98.0 F 102 H 20 159/76 H 98 11/15/18 08:26 11/15/18 08:26 11/15/18 08:26 11/15/18 09:45 11/15/18 08:26 - Medications Medications: Current Medications Folic Acid (Folic Acid) 1 mg PO DAILY [facility] Last Admin: 11/15/18 09:45 Dose: 1 mg Furosemide (Lasix) 40 mg IVP DAILY [facility] Last Admin: 11/15/18 09:45 Dose: 40 mg Potassium Chloride (Potassium Chloride 20 Meq/100 Ml) 20 meq in 100 mls @ 50 mls/hr IVPB Q2 [facility] Stop: 11/15/18 15:59 Lactulose (Enulose) 20 gm PO BID [facility] Last Admin: 11/15/18 09:46 Dose: 20 gm Magnesium Oxide (Mag-Ox) 800 mg PO TID [facility] Last Admin: 11/15/18 09:45 Dose: 800 mg Multivitamins/Vitamin C (Multi-Delyn Liquid) 5 ml PO DAILY [facility] Last Admin: 11/15/18 09:45 Dose: 5 ml Potassium Chloride (K-Dur 20 Meq Er Tab) 20 meq PO DAILY [facility] Stop: 11/18/18 10:01 Last Admin: 11/15/18 09:45 Dose: 20 meq Rifaximin (Xifaxan) 550 mg PO Q12 [facility]; Protocol Last Admin: 11/15/18 09:45 Dose: 550 mg Thiamine HCl (Vitamin B1 Tab) 100 mg PO DAILY [facility] Last Admin: 11/15/18 09:45 Dose: 100 mg - Labs Labs: 11/15/18 07:57 11/15/18 09:11 PT 19.5 SECONDS (9.7-12.2) H 11/15/18 07:57 INR 1.8 11/15/18 07:57 APTT 32 SECONDS (21-34) 11/13/18 09:50 Assessment and Plan - Assessment and Plan (Free Text) Assessment: alc liver dis oesophogeal varices
[2018-11-16 08:00] LABS: ALB/GLOB RATIO 0.6 (1.0-2.1); ALBUMIN 3.2 g/dL (3.5-5.0); ALT/SGPT 24 U/L (21-72); AST/SGOT 104 U/L (17-59); BASO % 0.6 % (0.0-2.0); BLOOD UREA NITROGEN 7 mg/dL (9-20); CALCIUM 8.2 mg/dl (8.6-10.4); EOS # 0.2 K/uL (0.0-0.7); EOS % 4.1 % (0.0-4.0); GFR NON-AFRICAN AMERICAN > 60; HEMOGLOBIN 11.8 g/dL (12.0-18.0); LYMPH # 2.1 K/uL (1.0-4.3); LYMPH % 46.3 % (20.0-40.0); MEAN CELL VOLUME 94.2 fL (80.0-94.0); MEAN CORPUSCULAR HGB CONC 32.9 g/dL (33.0-37.0); MEAN PLATELET VOLUME 7.7 fL (7.2-11.7); MONO # 0.8 K/uL (0.0-0.8); MONO % 18.3 % (0.0-10.0); NEUT # 1.4 K/uL (1.8-7.0); NEUT % 30.7 % (50.0-75.0); NRBC % 0.2 % (0.0-2.0); RBC 3.81 Mil/uL (4.40-5.90); RED CELL DISTRIBUTION WIDTH 17.3 % (11.5-14.5)
[2018-11-16 08:05] LABS: WHITE BLOOD COUNT 4.4 K/uL (4.8-10.8)
[2018-11-16 08:24] LABS: INR 1.6; PROTHROMBIN TIME 17.5 SECONDS (9.7-12.2)
[2018-11-16] MEDS ORDERED: Midazolam 2 MG/2 ML VIAL ONE (09:16)
[2018-11-16] MEDS ORDERED: Propofol 10 mg/ml Inj (20 ML) ONE ×2 (09:16→10:27)
[2018-11-16] MEDS: Multiple Vitamins Oral Solution PO SCH (10:40)
[2018-11-16] MEDS: Potassium Chloride 20 mEq ER Tab PO SCH (10:40)
[2018-11-16] MEDS: Magnesium Oxide 400 mg Tab UD PO SCH ×3 (10:40→17:00)
--- NOTE | 2018-11-16 12:47 | PCM.PSYCH ---
Initial Psychiatric Evaluation - Initial Psychiatric Evaluation Type of Admission: Voluntary Legal Status: Capacity Chief Complaint (in patient's own words): I am hearing voices.' History of Present Illness and Precipitating Events: Patient is a 47 y/o male who presented to the ED complaining of midsternal chest pain which has been present for the past 2 days. Patient states that he has chronic shortness of breath. Patient is also complaining of left leg pain which has been present "for a while." He also notes that he has history of ETOH abuse and he is requesting detox from ETOH. Today psychiatry was consulted. [employer] Tender is familiar with this patient. Patient was presented to the [facility] a few weeks ago with similar complaints. Patient has a long history of drinking and has a long history of liver disease/cirrhosis. Patient's last drink was 10 days ago, he states that he had six, 24oz beers daily and the most he has had was 15, 24oz beers. He has been drinking for 35 years. Patient smokes tobacco intermittently, smoking 1-2 cigarettes with a friend in a day. Patient denies withdrawal symptoms when he stops drinking generally, and he denies experiencing any since his last drink 10 days ago (denies: diaphoresis, nausea, anxiety, tremors, chill) Patient reports hearing voices and talking in his sleep. He also states that in his dreams he feels like he is being watched. He reports paranoia and anxiety. Patient states he has "felt down" for 3 years. He also is experiencing sleep disturbance, and difficulty concentrating. However he denies any suicidal/homicidal ideation. Psych hx: Patient reports seeing Dr. Sosa for help with his sleep/psychiatric issues, which patient could not elaborate on. PMH: Anemia, arthritis, asthma, A-fib, arrhythmia, CHF, COPD, biliary disease, HTN, pancreatitis, pneumonia, TIA, Liver disease PSH: appendectomy, cholecystectmy Family hx: brother had alcohol use disorder and due to complications of his alcohol use Meds: Lactulose, furosemide, nutritional supplemeits (thiamine, folic acid) Allergies: NKDA Current Medications: Active Medications Generic Name Dose Route Start Last Admin Trade Name Freq PRN Reason Stop Dose Admin Carvedilol 3.125 mg 11/16/18 18:00 Coreg PO BID N[facility] Folic Acid 1 mg 11/14/18 10:00 11/16/18 10:41 Folic Acid PO 1 mg DAILY [facility] Administration Furosemide 40 mg 11/14/18 10:45 11/16/18 10:41 Lasix IVP 40 mg DAILY [facility] Administration Potassium Chloride 20 meq in 100 mls @ 50 mls/hr 11/16/18 10:00 11/16/18 12:33 Potassium Chloride 20 Meq/100 Ml IVPB 11/16/18 17:59 50 mls/hr Q2H [facility] Administration Octreotide Acetate 1,250 mcg/ 250 mls @ 5 mls/hr 11/16/18 11:00 Sodium Chloride IV 11/19/18 11:01 .Q24H N[facility] Protocol 25 MCG/HR Lactulose 20 gm 11/13/18 18:00 11/16/18 10:42 Enulose PO 20 gm BID [facility] Administration Magnesium Oxide 800 mg 11/14/18 10:00 11/16/18 10:40 Mag-Ox PO 800 mg TID [facility] Administration Multivitamins/Vitamin C 5 ml 11/14/18 10:00 11/16/18 10:40 Multi-Delyn Liquid PO 5 ml DAILY [facility] Administration Pantoprazole Sodium 40 mg 11/16/18 10:00 Protonix Ec Tab PO 0600,1600 [facility] Potassium Chloride 20 meq 11/14/18 10:00 11/16/18 10:40 K-Dur 20 Meq Er Tab PO 11/18/18 10:01 20 meq DAILY [facility] Administration Rifaximin 550 mg 11/14/18 10:00 11/16/18 10:40 Xifaxan PO 550 mg Q12 [facility] Administration Protocol Thiamine HCl 100 mg 11/14/18 10:00 11/16/18 10:40 Vitamin B1 Tab PO 100 mg DAILY [facility] Administration Past Psychiatric History - Past Psychiatric History Previous Treatment History: None Pertinent Medical Hx (Current Medical&Sleep Prob, Allergies): Allergies Allergy/AdvReac Type Severity Reaction Status Date / Time No Known Allergies Allergy Verified 11/13/18 08:44 Folic Acid 1 mg PO DAILY #0 tab 11/21/15 Gabapentin [Neurontin] 400 mg PO TID 03/09/18 Cilostazol [Pletal] 100 mg PO Q12 03/23/18 rifAXIMin [Xifaxan] 550 mg PO Q12 03/23/18 Potassium Chloride [K-Tab ER] 20 meq PO DAILY #7 tablet.er 03/27/18 Lactulose [Enulose] 20 gm PO BID 30 Days udc 07/27/18 Magnesium Oxide [Mag-Ox] 800 mg PO TID #40 tab 09/22/18 Spironolactone [Aldactone] 50 mg PO DAILY #30 tab 09/22/18 levoFLOXacin [Levaquin] 1 tab PO DAILY #7 tab 10/22/18 Cyclobenzaprine [Cyclobenzaprine HCl] 10 mg PO TID #15 tab 10/23/18 Ibuprofen [Motrin] 600 mg PO TID #15 tab 10/23/18 Ibuprofen [Motrin] 600 mg PO Q6H #14 tab 11/03/18 Review of Systems - Review of Systems All systems: reviewed and no additional remarkable complaints except - Psychiatric Psychiatric: Anxiety, Auditory Hallucinations, Irritability. absent: Suicidal Ideation Mental Status Examination - Personal Presentation Personal Presentation: Looks stated age - Affect Affect: Constricted - Motor Activity Motor Activity: Calm - Reliability in Providing Information Reliability in Providing Information: Fair - Speech Speech: Organized - Mood Mood: Anxious - Formal Thought Process Formal Thought Process: Hallucinations, Delusions - Hallucinations/Delusions Hallucinations: Visual, Auditory Delusions: Persecution - Obsessions/Compulsions Obsessions: No Compulsions: No - Cognitive Functions Orientation: Person, Place, Situation, Time Sensorium: Alert Attention/Concentration: Attentive Abstract Thinking: [place] Estimate of Intelligence: Below average Judgement: Imparied, as evidence by: Poor judgement, Imparied, as evidence by: Lack of insight into illness - Risk Risk: Withdrawal, Diminished functioning - Limitations Limitations: Living alone DSM 5 DX - DSM 5 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 twice daily Ativan 0.5 mg p.o. every 6 hours as needed Patient psychiatrically stable and cleared for discharge - Smoking Cessation Smoking Cessation Initiated: No
--- NOTE | 2018-11-16 16:41 | CP.PCM.PN ---
Subjective - Date & Time of Evaluation Date of Evaluation: 11/16/18 Time of Evaluation: 16:35 - Subjective Subjective: pt went for endoscopy and oesophogeal varices had 6 banding now on iv sadostatin feels good Objective - Vital Signs/Intake and Output Vital Signs (last 24 hours): Temp Pulse Resp BP Pulse Ox 97.3 F L 76 12 125/82 100 11/16/18 09:45 11/16/18 10:15 11/16/18 10:15 11/16/18 10:41 11/16/18 11:00 Intake and Output: 11/16/18 11/16/18 06:59 18:59 Intake Total 240 1390 Output Total 2000 Balance 240 -610 - Medications Medications: Current Medications Carvedilol (Coreg) 3.125 mg PO BID [facility] Folic Acid (Folic Acid) 1 mg PO DAILY [facility] Last Admin: 11/16/18 10:41 Dose: 1 mg Furosemide (Lasix) 40 mg IVP DAILY [facility] Last Admin: 11/16/18 10:41 Dose: 40 mg Potassium Chloride (Potassium Chloride 20 Meq/100 Ml) 20 meq in 100 mls @ 50 mls/hr IVPB Q2H [facility] Stop: 11/16/18 17:59 Last Admin: 11/16/18 14:10 Dose: 50 mls/hr Octreotide Acetate 1,250 mcg/ (Sodium Chloride) 250 mls @ 5 mls/hr IV .Q24H [facility]; Protocol Stop: 11/19/18 11:01 Lactulose (Enulose) 20 gm PO BID [facility] Last Admin: 11/16/18 10:42 Dose: 20 gm Magnesium Oxide (Mag-Ox) 800 mg PO TID [facility] Last Admin: 11/16/18 14:09 Dose: 800 mg Multivitamins/Vitamin C (Multi-Delyn Liquid) 5 ml PO DAILY [facility] Last Admin: 11/16/18 10:40 Dose: 5 ml Pantoprazole Sodium (Protonix Ec Tab) 40 mg PO 0600,1600 [facility] Potassium Chloride (K-Dur 20 Meq Er Tab) 20 meq PO DAILY [facility] Stop: 11/18/18 10:01 Last Admin: 11/16/18 10:40 Dose: 20 meq Rifaximin (Xifaxan) 550 mg PO Q12 [facility]; Protocol Last Admin: 11/16/18 10:40 Dose: 550 mg Thiamine HCl (Vitamin B1 Tab) 100 mg PO DAILY [facility] Last Admin: 11/16/18 10:40 Dose: 100 mg - Labs Labs: 11/16/18 07:38 11/16/18 07:38 PT 17.5 SECONDS (9.7-12.2) H 11/16/18 07:38 INR 1.6 11/16/18 07:38 APTT 32 SECONDS (21-34) 11/13/18 09:50 - Constitutional Appears: Non-toxic - Head Exam Head Exam: NORMAL INSPECTION - Eye Exam Eye Exam: Normal appearance Pupil Exam: NORMAL ACCOMODATION - ENT Exam ENT Exam: Mucous Membranes Moist - Neck Exam Neck Exam: Full ROM - Cardiovascular Exam Cardiovascular Exam: REGULAR RHYTHM - GI/Abdominal Exam GI & Abdominal Exam: Normal Bowel Sounds - Extremities Exam Extremities Exam: Pedal Edema - Back Exam Back Exam: NORMAL INSPECTION - Neurological Exam Neurological Exam: Altered, Awake - Psychiatric Exam Psychiatric exam: Normal Affect - Skin Skin Exam: Pallor Assessment and Plan - Assessment and Plan (Free Text) Assessment: alcoholic liver disease splenomegaly oesophogeal varices Plan: cont as ordered
[2018-11-16] MEDS: Pantoprazole 40 mg EC Tab PO SCH (17:00)
[2018-11-16 19:09] VITALS: RESP 20
[2018-11-17] MEDS: Pantoprazole 40 mg EC Tab PO SCH ×2 (06:23→18:06)
--- NOTE | 2018-11-17 07:33 | CP.PCM.PN ---
<Angeline Jacobs - Last Filed: 11/17/18 07:33> Subjective - Date & Time of Evaluation Date of Evaluation: 11/17/18 Time of Evaluation: 07:33 - Subjective Subjective: Gastroenterology Fellow/PGY6 Progress Note Patient feels well. Tolerating diet. Admits to minimal abdominal discomfort. Notes two bowel movements yesterday. A 12-point review of systems negative except for as above. Objective - Vital Signs/Intake and Output Vital Signs (last 24 hours): Temp Pulse Resp BP Pulse Ox 98 F 83 20 101/61 96 11/17/18 00:25 11/17/18 00:25 11/17/18 00:25 11/17/18 00:25 11/17/18 00:25 Intake and Output: 11/17/18 11/17/18 06:59 18:59 Intake Total 280 Balance 280 - Medications Medications: Current Medications Carvedilol (Coreg) 3.125 mg PO BID [facility] Last Admin: 11/16/18 17:00 Dose: 3.125 mg Folic Acid (Folic Acid) 1 mg PO DAILY [facility] Last Admin: 11/16/18 10:41 Dose: 1 mg Furosemide (Lasix) 40 mg IVP DAILY [facility] Last Admin: 11/16/18 10:41 Dose: 40 mg Octreotide Acetate 1,250 mcg/ (Sodium Chloride) 250 mls @ 5 mls/hr IV .Q24H [facility]; Protocol Stop: 11/19/18 11:01 Lactulose (Enulose) 20 gm PO BID [facility] Last Admin: 11/16/18 17:00 Dose: 20 gm Lorazepam (Ativan) 0.5 mg PO Q6 PRN PRN Reason: Anxiety Magnesium Oxide (Mag-Ox) 800 mg PO TID [facility] Last Admin: 11/16/18 17:00 Dose: 800 mg Multivitamins/Vitamin C (Multi-Delyn Liquid) 5 ml PO DAILY [facility] Last Admin: 11/16/18 10:40 Dose: 5 ml Pantoprazole Sodium (Protonix Ec Tab) 40 mg PO 0600,1600 [facility] Last Admin: 11/17/18 06:23 Dose: 40 mg Potassium Chloride (K-Dur 20 Meq Er Tab) 20 meq PO DAILY [facility] Stop: 11/18/18 10:01 Last Admin: 11/16/18 10:40 Dose: 20 meq Quetiapine Fumarate (Seroquel) 50 mg PO BID [facility] Last Admin: 11/16/18 23:01 Dose: 50 mg Rifaximin (Xifaxan) 550 mg PO Q12 [facility]; Protocol Last Admin: 11/16/18 23:01 Dose: 550 mg Thiamine HCl (Vitamin B1 Tab) 100 mg PO DAILY [facility] Last Admin: 11/16/18 10:40 Dose: 100 mg - Labs Labs: 11/16/18 07:38 11/16/18 07:38 PT 17.5 SECONDS (9.7-12.2) H 11/16/18 07:38 INR 1.6 11/16/18 07:38 APTT 32 SECONDS (21-34) 11/13/18 09:50 - Constitutional Appears: Non-toxic, No Acute Distress - Head Exam Head Exam: ATRAUMATIC, NORMOCEPHALIC - Eye Exam Eye Exam: EOMI, PERRL, Scleral icterus Pupil Exam: PERRL. absent: Miosis, Mydriatic - ENT Exam ENT Exam: Mucous Membranes Moist, Normal Oropharynx - Neck Exam Neck Exam: Full ROM, Normal Inspection - Respiratory Exam Respiratory Exam: Clear to Ausculation Bilateral. absent: Rales, Rhonchi, Wheezes - Cardiovascular Exam Cardiovascular Exam: RRR, +S1, +S2. absent: Gallop, Rubs - GI/Abdominal Exam GI & Abdominal Exam: Soft, Normal Bowel Sounds. absent: Distended, Firm, Rigid, Tenderness, Mass, Rebound - Extremities Exam Extremities Exam: Normal Inspection. absent: Pedal Edema - Neurological Exam Neurological Exam: Alert, Awake - Psychiatric Exam Psychiatric exam: Normal Affect, Normal Mood - Skin Skin Exam: Dry, Intact, Normal Color, Warm Assessment and Plan - Assessment and Plan (Free Text) Assessment: 47 year old male with decompensated alcoholic cirrhosis 2/2 Hepatic encep halopathy with active alcohol abuse and Obesity presenting with request for detox. Last discharge 10/02/18 for hepatic encephalopathy with most recent ER visit on 11/10/18 for public alcohol intoxication. Active treatment of decompensated alcoholic cirrhosis 2/2 hepatic encephalopathy in setting of Lactulose/Rifaximin noncompliance. CT liver protocol showed stable hypodensity encircling IVC and caudate nucleus, without compression, unchanged from 12/2014. Duplex U/S showed no flow in portal vein with similar changes onUltrasound 09/15/18 showing bidirectional flow. 02/2018 Ultrasound- normal flow in portal vein. No prior EGD or colonoscopy. Plan: -MELD-Na 21 -POD1 (11/16) EGD-mid/distal large esophageal varices, >5mm in diameter -s/p six variceal bands -pre-pyloric superficial ulcers- continue PPI 40mg BID for 8-12 weeks -completed 24 hours of octreotide therapy -received first dose of Coreg 3.125mg BID yesterday, titrate to heart rate 50-55 -will require repeat endoscopic surveillance for variceal eradication and ulcer healing in the next 4-6 weeks -advance to soft low sodium diet -continue Lactulose 20mg BID, titrate to 3-4 bowel movements and Rifaxamin 550mg BID for hepatic encephalopathy prevention -hepatobiliary surgery- follow up recommendations -will follow clinical course <Ashish Kerr - Last Filed: 11/17/18 13:02> Objective - Vital Signs/Intake and Output Vital Signs (last 24 hours): Temp Pulse Resp BP Pulse Ox 98 F 84 20 116/71 98 11/17/18 07:00 11/17/18 11:25 11/17/18 07:00 11/17/18 11:25 11/17/18 07:00 Intake and Output: 11/17/18 11/17/18 06:59 18:59 Intake Total 280 Balance 280 - Medications Medications: Current Medications Carvedilol (Coreg) 3.125 mg PO BID [facility] Last Admin: 11/17/18 11:30 Dose: 3.125 mg Folic Acid (Folic Acid) 1 mg PO DAILY [facility] Last Admin: 11/17/18 09:15 Dose: 1 mg Furosemide (Lasix) 40 mg IVP DAILY [facility] Last Admin: 11/17/18 09:17 Dose: 40 mg Lactulose (Enulose) 20 gm PO BID [facility] Last Admin: 11/17/18 09:17 Dose: 20 gm Lorazepam (Ativan) 0.5 mg PO Q6 PRN PRN Reason: Anxiety Magnesium Oxide (Mag-Ox) 800 mg PO TID [facility] Last Admin: 11/17/18 09:16 Dose: 800 mg Multivitamins/Vitamin C (Multi-Delyn Liquid) 5 ml PO DAILY [facility] Last Admin: 11/17/18 09:17 Dose: 5 ml Pantoprazole Sodium (Protonix Ec Tab) 40 mg PO 0600,1600 [facility] Last Admin: 11/17/18 06:23 Dose: 40 mg Potassium Chloride (K-Dur 20 Meq Er Tab) 20 meq PO DAILY [facility] Stop: 11/18/18 10:01 Last Admin: 11/17/18 09:16 Dose: 20 meq Quetiapine Fumarate (Seroquel) 50 mg PO BID [facility] Last Admin: 11/17/18 09:16 Dose: 50 mg Rifaximin (Xifaxan) 550 mg PO Q12 [facility]; Protocol Last Admin: 11/17/18 09:16 Dose: 550 mg Thiamine HCl (Vitamin B1 Tab) 100 mg PO DAILY [facility] Last Admin: 11/17/18 09:16 Dose: 100 mg - Labs Labs: 11/17/18 08:05 11/17/18 08:05 PT 18.3 SECONDS (9.7-12.2) H 11/17/18 08:05 INR 1.7 11/17/18 08:05 APTT 32 SECONDS (21-34) 11/13/18 09:50 Attending/Attestation - Attestation I have personally seen and examined this patient.: Yes I have fully participated in the care of the patient.: Yes I have reviewed all pertinent clinical information, including history, physical exam and plan: Yes Notes (Text): 11/17/18 12:59 I have seen and examined patient with GI fellow. No acute events overnight, he is seen resting in bed comfortably. He denies dysphagia, odynophagia, abdominal pain, nausea, vomiting. Tolerating PO diet without difficulty. Review of vitals from today are normal. Decompensated ETOH cirrhosis Obesity s/p EGD yesterday showing gastric ulcers, portal hypertensive gastropathy, esophageal varices s/p band ligation - Advance to low sodium soft diet as tolerated - Continue with PPI therapy - Continue with b-marvin regimen, monitor heart rate - Continue with lactulose for HE prevention - EGD biopsy results show HP negative gastritis, will require repeat EGD within 4-6 weeks for repeat banding - ETOH cessation - No further planned GI intervention at this time, will sign off case. Please reconsult as necessary, thank you.
[2018-11-17 08:33] LABS: BASO % 0.8 % (0.0-2.0); EOS # 0.1 K/uL (0.0-0.7); EOS % 4.4 % (0.0-4.0); HEMOGLOBIN 9.9 g/dL (12.0-18.0); LYMPH # 0.8 K/uL (1.0-4.3); LYMPH % 39.7 % (20.0-40.0); MEAN CELL VOLUME 95.2 fL (80.0-94.0); MEAN CORPUSCULAR HEMOGLOBIN 31.8 pg (27.0-31.0); MEAN CORPUSCULAR HGB CONC 33.3 g/dL (33.0-37.0); MONO # 0.5 K/uL (0.0-0.8); MONO % 22.8 % (0.0-10.0); NEUT # 0.7 K/uL (1.8-7.0); NEUT % 32.3 % (50.0-75.0); NRBC % 0.3 % (0.0-2.0); RBC 3.11 Mil/uL (4.40-5.90); RED CELL DISTRIBUTION WIDTH 17.3 % (11.5-14.5)
[2018-11-17 08:39] LABS: INR 1.7; PROTHROMBIN TIME 18.3 SECONDS (9.7-12.2)
[2018-11-17 08:42] LABS: PLATELET COUNT 115 K/uL (130-400); WHITE BLOOD COUNT 2.1 K/uL (4.8-10.8)
[2018-11-17 08:46] LABS: BLOOD UREA NITROGEN 5 mg/dL (9-20); CALCIUM 7.8 mg/dl (8.6-10.4); GFR NON-AFRICAN AMERICAN > 60
[2018-11-17] MEDS: Potassium Chloride 20 mEq ER Tab PO SCH (09:16)
[2018-11-17] MEDS: Magnesium Oxide 400 mg Tab UD PO SCH ×3 (09:16→18:07)
[2018-11-17] MEDS: Multiple Vitamins Oral Solution PO SCH (09:17)
[2018-11-17 09:30] LABS: ALB/GLOB RATIO 0.5 (1.0-2.1); ALBUMIN 2.3 g/dL (3.5-5.0); BILIRUBIN,DIRECT 0.8 mg/dL (0.0-0.4)
[2018-11-17 09:53] LABS: EOSINOPHIL 3 % (0-4); LYMPHOCYTE 36 % (20-40); MONOCYTE 24 % (0-10); NEUTROPHIL 37 % (50-75); PLATELET ESTIMATE SLIGHTLY DECREASED (NORMAL); TOTAL CELLS COUNTED 100
[2018-11-17 09:54] LABS: ANISOCYTOSIS SLIGHT
--- NOTE | 2018-11-17 10:26 | CP.PCM.PN ---
Subjective - Date & Time of Evaluation Date of Evaluation: 11/17/18 Time of Evaluation: 10:24 - Subjective Subjective: pt feels beter eating no distess seen by psycharist doesnot need detox still on iv mediation Objective - Vital Signs/Intake and Output Vital Signs (last 24 hours): Temp Pulse Resp BP Pulse Ox 98 F 86 20 118/76 98 11/17/18 07:00 11/17/18 07:00 11/17/18 07:00 11/17/18 09:17 11/17/18 07:00 Intake and Output: 11/17/18 11/17/18 06:59 18:59 Intake Total 280 Balance 280 - Medications Medications: Current Medications Carvedilol (Coreg) 3.125 mg PO BID [facility] Last Admin: 11/16/18 17:00 Dose: 3.125 mg Folic Acid (Folic Acid) 1 mg PO DAILY [facility] Last Admin: 11/17/18 09:15 Dose: 1 mg Furosemide (Lasix) 40 mg IVP DAILY [facility] Last Admin: 11/17/18 09:17 Dose: 40 mg Octreotide Acetate 1,250 mcg/ (Sodium Chloride) 250 mls @ 5 mls/hr IV .Q24H [facility]; Protocol Stop: 11/17/18 11:01 Lactulose (Enulose) 20 gm PO BID [facility] Last Admin: 11/17/18 09:17 Dose: 20 gm Lorazepam (Ativan) 0.5 mg PO Q6 PRN PRN Reason: Anxiety Magnesium Oxide (Mag-Ox) 800 mg PO TID [facility] Last Admin: 11/17/18 09:16 Dose: 800 mg Multivitamins/Vitamin C (Multi-Delyn Liquid) 5 ml PO DAILY [facility] Last Admin: 11/17/18 09:17 Dose: 5 ml Pantoprazole Sodium (Protonix Ec Tab) 40 mg PO 0600,1600 [facility] Last Admin: 11/17/18 06:23 Dose: 40 mg Potassium Chloride (K-Dur 20 Meq Er Tab) 20 meq PO DAILY [facility] Stop: 11/18/18 10:01 Last Admin: 11/17/18 09:16 Dose: 20 meq Quetiapine Fumarate (Seroquel) 50 mg PO BID [facility] Last Admin: 11/17/18 09:16 Dose: 50 mg Rifaximin (Xifaxan) 550 mg PO Q12 [facility]; Protocol Last Admin: 11/17/18 09:16 Dose: 550 mg Thiamine HCl (Vitamin B1 Tab) 100 mg PO DAILY [facility] Last Admin: 11/17/18 09:16 Dose: 100 mg - Labs Labs: 11/17/18 08:05 11/17/18 08:05 PT 18.3 SECONDS (9.7-12.2) H 11/17/18 08:05 INR 1.7 11/17/18 08:05 APTT 32 SECONDS (21-34) 11/13/18 09:50 - Constitutional Appears: Non-toxic - Head Exam Head Exam: ATRAUMATIC - Eye Exam Eye Exam: Normal appearance Pupil Exam: NORMAL ACCOMODATION - ENT Exam ENT Exam: Mucous Membranes Moist - Respiratory Exam Respiratory Exam: Clear to Ausculation Bilateral - Cardiovascular Exam Cardiovascular Exam: REGULAR RHYTHM - GI/Abdominal Exam GI & Abdominal Exam: Normal Bowel Sounds - Exam Exam: NORMAL INSPECTION - Back Exam Back Exam: NORMAL INSPECTION - Neurological Exam Neurological Exam: Alert, Normal Gait, Oriented x3 - Psychiatric Exam Psychiatric exam: Normal Affect - Skin Skin Exam: Normal Color Assessment and Plan - Assessment and Plan (Free Text) Assessment: s/p oesophogeal varices bands alc liver disease s/p alc abuse Plan: cont iv tratment as ordered
--- NOTE | 2018-11-18 04:00 | CON ---
DATE: 11/17/2018 CARDIOLOGY CONSULTATION REQUESTED BY: Annalee Barnett MD LOCATION: Presently in room 668, B. HISTORY OF PRESENT ILLNESS: To see this 47-year-old male with a long history of chronic alcoholism, depression, schizophrenia, COPD, hepatitis B, hypertension, history of congestive heart failure, etc., admitted with severe decompensation of chronic alcoholism and vague complaint of some atypical chest pain. During my interview, he was in no distress whatsoever. He appeared to be somewhat confused at times with obvious evidence of some underlying encephalopathy, but once again in no distress whatsoever. The recent medical progress was reviewed in the electronic medical records. At this point in time, he denies any chest discomfort or shortness of breath. As a matter of fact, he was found asleep when I woke him up and he did not want to be "bothered with." REVIEW OF SYSTEMS: Rest of the review of systems otherwise stable. PHYSICAL EXAMINATION: VITAL SIGNS: Appear relatively stable. Blood pressure in the range of about 116/71 pulse about 70-80 per minute. Temperature is normal. Respiratory rate at rest is unremarkable. O2 saturation on room air is 98%. SKIN: There is some brownish excessive dermatitis in both lower extremities and mild dependent edema. HEAD, EARS, NOSE AND THROAT: Otherwise unremarkable for his age. NECK: Supple. CHEST: Relatively clear to auscultation, though limited exam. CARDIOLOGIC: Heart sounds normal in intensity and regular. Minimal systolic murmur on the sternal border. ABDOMEN: Soft. No localized tenderness; however, for details, kindly refer to tree farmer's evaluation. CENTRAL NERVOUS SYSTEM: Alert, at times appears somewhat confused, but no focal deficit. COMPLEMENTARY DATA: Chest x-ray is showing some [id number] pulmonary congestion, some cardiomegaly. EKG, borderline sinus tachycardia, nonspecific ST-T changes. A CT of the chest was done because of some kind of pain that he was describing when he came to the emergency room, but there was no evidence of any pulmonary embolism as he was not properly cooperative. Blood tests show mild anemia, evidence of elevated liver enzymes, [id number] hypokalemia, all of these compatible with chronic liver disease from the base of chronic alcoholism, elevated liver enzymes, and total bilirubin mildly elevated. IMPRESSION: Atypical chest pain, appears noncardiac in etiology. Most likely related to upper gastrointestinal chronic alcoholism, etc., etc.; presently cardiologically compensated; history of congestive heart failure. CONCLUSION AND SUGGESTIONS: Presently appears compensated from the cardiological view point. He is receiving intravenous diuretics as well as potassium supplement, which suggests perhaps increased potassium intake, and continue Carvedilol with furosemide. Obviously, the main problem appears to be chronic alcoholism, chronic liver disease, etc. Tye Weems MD
[2018-11-18] MEDS: Pantoprazole 40 mg EC Tab PO SCH (05:32)
[2018-11-18 06:36] LABS: BASO % 0.2 % (0.0-2.0); EOS # 0.1 K/uL (0.0-0.7); EOS % 3.2 % (0.0-4.0); HEMOGLOBIN 9.9 g/dL (12.0-18.0); LYMPH # 0.9 K/uL (1.0-4.3); LYMPH % 20.2 % (20.0-40.0); MEAN CELL VOLUME 95.3 fL (80.0-94.0); MEAN CORPUSCULAR HEMOGLOBIN 31.2 pg (27.0-31.0); MEAN CORPUSCULAR HGB CONC 32.7 g/dL (33.0-37.0); MEAN PLATELET VOLUME 7.7 fL (7.2-11.7); MONO # 0.7 K/uL (0.0-0.8); MONO % 16.1 % (0.0-10.0); NEUT # 2.6 K/uL (1.8-7.0); NEUT % 60.3 % (50.0-75.0); NRBC % 0.1 % (0.0-2.0); RBC 3.17 Mil/uL (4.40-5.90); WHITE BLOOD COUNT 4.3 K/uL (4.8-10.8)
[2018-11-18 06:52] LABS: ALB/GLOB RATIO 0.5 (1.0-2.1); ALBUMIN 2.2 g/dL (3.5-5.0); ALT/SGPT 28 U/L (21-72); AST/SGOT 61 U/L (17-59); BLOOD UREA NITROGEN 7 mg/dL (9-20); CALCIUM 7.8 mg/dl (8.6-10.4); GFR NON-AFRICAN AMERICAN > 60
[2018-11-18 09:11] VITALS: PULSE 89; TEMP 98.1; O2SAT 98
[2018-11-18] MEDS: Magnesium Oxide 400 mg Tab UD PO SCH ×2 (09:41→13:00)
[2018-11-18] MEDS: Potassium Chloride 20 mEq ER Tab PO SCH (09:41)
[2018-11-18 09:43] VITALS: BP 113/70
[2018-11-18] MEDS: Multiple Vitamins Oral Solution PO SCH (09:52)
--- NOTE | 2018-11-18 10:11 | CP.PCM.PN ---
Subjective - Date & Time of Evaluation Date of Evaluation: 11/18/18 Time of Evaluation: 10:08 - Subjective Subjective: pt feels ok no pain no c sob hgb stable tolerating food Objective - Vital Signs/Intake and Output Vital Signs (last 24 hours): Temp Pulse Resp BP Pulse Ox 98.1 F 89 20 113/70 98 11/18/18 09:10 11/18/18 09:10 11/18/18 09:10 11/18/18 09:42 11/18/18 09:10 Intake and Output: 11/18/18 11/18/18 06:59 18:59 Output Total 250 Balance -250 - Medications Medications: Current Medications Carvedilol (Coreg) 3.125 mg PO BID [facility] Last Admin: 11/18/18 09:42 Dose: 3.125 mg Folic Acid (Folic Acid) 1 mg PO DAILY [facility] Last Admin: 11/18/18 09:41 Dose: 1 mg Furosemide (Lasix) 40 mg IVP DAILY [facility] Last Admin: 11/18/18 09:42 Dose: 40 mg Lactulose (Enulose) 20 gm PO BID [facility] Last Admin: 11/18/18 09:41 Dose: 20 gm Magnesium Oxide (Mag-Ox) 800 mg PO TID [facility] Last Admin: 11/18/18 09:41 Dose: 800 mg Multivitamins/Vitamin C (Multi-Delyn Liquid) 5 ml PO DAILY [facility] Last Admin: 11/18/18 09:52 Dose: 5 ml Pantoprazole Sodium (Protonix Ec Tab) 40 mg PO 0600,1600 [facility] Last Admin: 11/18/18 05:32 Dose: 40 mg Quetiapine Fumarate (Seroquel) 50 mg PO BID [facility] Last Admin: 11/18/18 09:42 Dose: 50 mg Rifaximin (Xifaxan) 550 mg PO Q12 [facility]; Protocol Last Admin: 11/18/18 09:52 Dose: 550 mg Spironolactone (Aldactone) 25 mg PO DAILY [facility] Thiamine HCl (Vitamin B1 Tab) 100 mg PO DAILY [facility] Last Admin: 11/18/18 09:42 Dose: 100 mg - Labs Labs: 11/18/18 06:26 11/18/18 06:26 PT 18.3 SECONDS (9.7-12.2) H 11/17/18 08:05 INR 1.7 11/17/18 08:05 APTT 32 SECONDS (21-34) 11/13/18 09:50 - Constitutional Appears: Well - Head Exam Head Exam: ATRAUMATIC - Eye Exam Eye Exam: Normal appearance Pupil Exam: NORMAL ACCOMODATION - ENT Exam ENT Exam: Mucous Membranes Moist - Neck Exam Neck Exam: Full ROM - Respiratory Exam Respiratory Exam: NORMAL BREATHING PATTERN - Cardiovascular Exam Cardiovascular Exam: REGULAR RHYTHM - GI/Abdominal Exam GI & Abdominal Exam: Normal Bowel Sounds - Rectal Exam Rectal Exam: NORMAL INSPECTION - Exam Exam: NORMAL INSPECTION - Extremities Exam Extremities Exam: Normal Inspection - Back Exam Back Exam: NORMAL INSPECTION - Neurological Exam Neurological Exam: Alert, Awake, Normal Gait, Oriented x3 - Psychiatric Exam Psychiatric exam: Normal Affect - Skin Skin Exam: Pallor Assessment and Plan - Assessment and Plan (Free Text) Assessment: s/p alc abuse alc liver disease oesophogeal varices s/p blication aneamia Plan: will disch home cont some med f/u by [place]
[2018-11-18] MEDS ORDERED: Potassium Chloride 20 mEq ER Tab PO ONE (12:22)
--- NOTE | 2018-11-18 18:37 | PCM.HF ---
Heart Failure Core Measure Aldosterone Antagonist Prescribed: Yes
== END 2018-11-18 13:30 | disposition home or self-care (01) | DRG 897 ==
LOC: C.ER 08:36 → UNDOADMOB 16:32 → C.9E 16:32 → C.6T 19:37 → OBSVTOIN 11-16 15:22
PROVIDERS: ADMIT Internal Medicine; ATTEND Internal Medicine
DX: F10.129 Alcohol abuse with intoxication, unspecified (principal); I85.00 Esophageal varices without bleeding; K76.6 Portal hypertension; Z68.43 Body mass index [BMI] 50.0-59.9, adult; K70.30 Alcoholic cirrhosis of liver without ascites; K70.40 Alcoholic hepatic failure without coma; E66.01 Morbid (severe) obesity due to excess calories; F17.210 Nicotine dependence, cigarettes, uncomplicated; I11.0 Hypertensive heart disease with heart failure; I48.91 Unspecified atrial fibrillation; I50.9 Heart failure, unspecified; J44.9 Chronic obstructive pulmonary disease, unspecified; F41.9 Anxiety disorder, unspecified; Z86.73 Personal history of transient ischemic attack (TIA), and cerebral infarction without residual deficits

== ENCOUNTER 2018-12-02 23:34 | Emergency (ER) | payer MEDICARE, OTHER ==
[2018-12-02 23:34] VITALS: BMI 48.9
[2018-12-02 23:49] VITALS: TEMP 98
[2018-12-03 06:38] VITALS: BP 132/80; PULSE 82; RESP 22; O2SAT 97
--- NOTE | 2018-12-03 06:52 | C.PDOC ---
History Of Present Illness 48-year-old male is brought into the emergency department by ambulance from [facility] for public intoxication. Patient reports that he drank two beers and complains of left leg pain. Time Seen by Provider: 12/02/18 23:51 Chief Complaint (Nursing): Substance Abuse History Per: Patient History/Exam Limitations: no limitations Onset/Duration Of Symptoms: Hrs Current Symptoms Are (Timing): Still Present Past Medical History Reviewed: Historical Data, Nursing Documentation, Vital Signs Vital Signs: Last Vital Signs Temp 98 F 12/03/18 06:36 Pulse 82 12/03/18 06:36 Resp 22 12/03/18 06:36 BP 132/80 12/03/18 06:36 Pulse Ox 97 12/03/18 06:36 - Medical History PMH: Anemia, Anxiety, Arthritis, Asthma, Atrial Fibrillation, Cardia Arrhythmia, CHF, COPD, Gall Bladder Disease, HTN, Pancreatitis, Pneumonia, Schizophrenia, TIA Denies: Bipolar Disorder, Depression, Diabetes, Hepatitis, HIV, Chronic Kidney Disease, Seizures, Sexually Transmitted Disease Surgical History: Appendectomy, Cholecystectomy Denies: CABG, Coronary Stent, Pacemaker, Tonsillectomy - [facility] Procedures EXCISION OF STOMACH, ENDO, DIAGN (11/16/18) FLUOROSCOPY OF RIGHT JUGULAR VEINS, GUIDANCE (11/14/15) INSERT INFUSION DEV IN R INT JUGULAR VEIN, PERC (11/14/15) INTRODUCTION OF SERUM/TOX/VACCINE INTO MUSCLE, PERC APPROACH (05/28/17) REMOVAL OF INFUSION DEVICE FROM UPPER VEIN, OCC THERAPY ASST APPROACH (11/14/15) Family History: States: No Known Family Hx - Social History Hx Tobacco Use: No Hx Alcohol Use: Yes Hx Substance Use: Yes - Immunization History Hx Tetanus Toxoid Vaccination: No Hx Influenza Vaccination: No Hx Pneumococcal Vaccination: No Review Of Systems Except As Marked, All Systems Reviewed And Found Negative. Constitutional: Negative for: Fever, Chills, Weakness Cardiovascular: Negative for: Chest Pain Respiratory: Negative for: Cough, Shortness of Breath Gastrointestinal: Negative for: Nausea, Vomiting, Abdominal Pain, Diarrhea Musculoskeletal: Positive for: Leg Pain (left) Neurological: Negative for: Weakness, Numbness Physical Exam - Physical Exam Appears: Non-toxic, No Acute Distress Skin: Normal Color, Warm, Dry Head: Atraumatic, Normacephalic Eye(s): bilateral: Normal Inspection, PERRL, EOMI Nose: Normal Oral Mucosa: Moist, Other (alcohol on breath) Neck: Normal, Supple Chest: Symmetrical, No Tenderness Cardiovascular: Rhythm Regular, No Murmur Respiratory: Normal Breath Sounds, No Rales, No Rhonchi, No Wheezing Gastrointestinal/Abdominal: Soft, No Tenderness, No Guarding, No Rebound Extremity: Normal ROM (left lower extremity) Neurological/Psych: Oriented x3, Normal Speech, Normal Cognition ED Course And Treatment O2 Sat by Pulse Oximetry: 97 (RA) Pulse Ox Interpretation: Normal Medical Decision Making Medical Decision Making: Plan: Glucose POC Disposition - Disposition Referrals: [facility] [Outside] [facility] [Outside] Disposition: HOME/ ROUTINE Disposition Time: 01:00 Condition: IMPROVED Additional Instructions: JERROD KIRK, thank you for letting us take care of you today. The emergency medical care you received today was directed at your acute symptoms. If you were prescribed any medication, please fill it and take as directed. It may take several days for your symptoms to resolve. Return to the Emergency Department if your symptoms worsen, do not improve, or if you have any other problems. Please contact your doctor or call one of the physicians/clinics you have been referred to that are listed on the Patient Visit Information form that is included in your discharge packet. Bring any paperwork you were given at discharge with you along with any medications you are taking to your follow up visit. Our treatment cannot replace ongoing medical care by a primary care provider outside of the emergency department. Thank you for allowing the [facility] team to be part of your care today. Followup with your primary care doctor or our clinic in 3-5 days for re-evaluati on and further management. Instructions: Alcohol Use - When Is Drinking a Problem? Forms: [facility] (M[place]ovan) - Clinical Impression Clinical Impression: Alcohol use - Scribe Statement The provider has reviewed the documentation as recorded by the Scribe (Beny Dodd) Provider Attestation: All medical record entries made by the Scribe were at my direction and personally dictated by me. I have reviewed the chart and agree that the record accurately reflects my personal performance of the history, physical exam, medical decision making, and the department course for this patient. I have also personally directed, reviewed, and agree with the discharge instructions and disposition.
== END 2018-12-03 06:36 | disposition home or self-care (01) ==
LOC: C.ER 23:34
DX: Z72.89 Other problems related to lifestyle (principal)

== ENCOUNTER 2019-01-15 05:53 | Observation (INO) | payer OTHER ==
[2019-01-15 05:53] VITALS: BMI 48.9
--- NOTE | 2019-01-15 06:22 | C.PDOC ---
History Of Present Illness Patient with PMHx of ETOH abuse presents to the ED c/o SOb on exertion and worsening lower extremity edema. Patient able to speak in complete sentences. Patient denies fever, chills, headache, CP, palpitations, rash, weakness, numbness. Time Seen by Provider: 01/15/19 06:22 Chief Complaint (Nursing): Shortness Of Breath History Per: Patient History/Exam Limitations: no limitations Onset/Duration Of Symptoms: Days Current Symptoms Are (Timing): Worse Initiating Event: Upper Respiratory Illness Quality: Dull Exacerbating Factor(s): Exertion Current Respiratory Medications: See Home Med List Severity: Moderate Pain Scale Rating Of: 4 Associated Symptoms: Ankle/Leg Swelling Reports Recently: Seen In ED, Treated By A Physician, Hospitalized Recent travel outside of the [place]: No Additional History Per: Patient Past Medical History Reviewed: Historical Data, Nursing Documentation, Vital Signs Vital Signs: Last Vital Signs Temp 97.4 F L 01/15/19 06:00 Pulse 79 01/15/19 06:00 Resp 20 01/15/19 06:12 BP 128/82 01/15/19 06:00 Pulse Ox 99 01/15/19 06:00 Primary Care Provider: Rosalba Yoon Medical History PMH: Anemia, Anxiety, Arthritis, Asthma, Atrial Fibrillation, Cardia Arrhythmia, CHF, COPD, Gall Bladder Disease, HTN, Pancreatitis, Pneumonia, Schizophrenia, TIA Denies: Bipolar Disorder, Depression, Diabetes, Hepatitis, HIV, Chronic Kidney Disease, Seizures, Sexually Transmitted Disease Surgical History: Appendectomy, Cholecystectomy Denies: CABG, Coronary Stent, Pacemaker, Tonsillectomy - [facility] Procedures EXCISION OF STOMACH, ENDO, DIAGN (11/16/18) FLUOROSCOPY OF RIGHT JUGULAR VEINS, GUIDANCE (11/14/15) INSERT INFUSION DEV IN R INT JUGULAR VEIN, PERC (11/14/15) INTRODUCTION OF SERUM/TOX/VACCINE INTO MUSCLE, PERC APPROACH (05/28/17) REMOVAL OF INFUSION DEVICE FROM UPPER VEIN, TRANSPORTATION PROGRAM DIRECTOR APPROACH (11/14/15) Family History: States: Unknown Family Hx - Social History Hx Tobacco Use: No Hx Alcohol Use: Yes Hx Substance Use: No - Immunization History Hx Tetanus Toxoid Vaccination: No Hx Influenza Vaccination: Yes Hx Pneumococcal Vaccination: No Review Of Systems Constitutional: Negative for: Fever, Chills Cardiovascular: Negative for: Chest Pain, Palpitations Respiratory: Positive for: Shortness of Breath, SOB with Excertion Gastrointestinal: Negative for: Nausea, Vomiting, Abdominal Pain Musculoskeletal: Positive for: Leg Pain (swelling ) Skin: Negative for: Rash Neurological: Negative for: Weakness, Numbness, Headache, Dizziness Physical Exam - Physical Exam Appears: Non-toxic, No Acute Distress Skin: Warm, Dry, Other (bilateral lower legs hyperpigmented sking) Head: Normacephalic Eye(s): bilateral: Normal Inspection Oral Mucosa: Moist Neck: Supple Chest: Symmetrical Cardiovascular: Rhythm Regular Respiratory: No Rales, No Rhonchi, No Wheezing Gastrointestinal/Abdominal: Soft, No Tenderness, No Distention Back: No CVA Tenderness Extremity: Pedal Edema (bilateral with significant venous stasis changes), Capillary Refill (< 2 seconds), No Deformity, Swelling Extremity: Bilateral: Atraumatic, Normal ROM Neurological/Psych: Oriented x3, Normal Speech, Normal Cognition Gait: Steady ED Course And Treatment ECG: Interpreted By Me, Viewed By Me ECG Rhythm: Sinus Rhythm (78), Nonspecific Changes O2 Sat by Pulse Oximetry: 99 (ON RA) Pulse Ox Interpretation: Normal - Radiology CXR: Interpreted by Me, Viewed By Me Progress Note: Plan: - ABG. - EKG. - Labs. - CXR. - Blood culture. - UA Disposition Counseled Patient/Family Regarding: Studies Performed, Diagnosis - Disposition Disposition Time: 07:00 Condition: FAIR Forms: [facility] (Setswana) - Clinical Impression Clinical Impression: Dyspnea - Scribe Statement The provider has reviewed the documentation as recorded by the Scribe Benjamin Wall All medical record entries made by the Scribe were at my direction and personally dictated by me. I have reviewed the chart and agree that the record accurately reflects my personal performance of the history, physical exam, medical decision making, and the department course for this patient. I have also personally directed, reviewed, and agree with the discharge instructions and disposition. Physician Patient Turnover Patient Signed Over To: Keyur Irving Handoff Comments: Pending labs, dispo, re-eval
[2019-01-15 06:59] LABS: BASO % 1.1 % (0.0-2.0); EOS # 0.1 K/uL (0.0-0.7); EOS % 3.3 % (0.0-4.0); HEMOGLOBIN 10.5 g/dL (12.0-18.0); LYMPH # 0.7 K/uL (1.0-4.3); LYMPH % 29.1 % (20.0-40.0); MEAN CELL VOLUME 91.8 fL (80.0-94.0); MEAN CORPUSCULAR HEMOGLOBIN 30.3 pg (27.0-31.0); MEAN CORPUSCULAR HGB CONC 32.9 g/dL (33.0-37.0); MEAN PLATELET VOLUME 7.9 fL (7.2-11.7); MONO # 0.2 K/uL (0.0-0.8); MONO % 10.4 % (0.0-10.0); NEUT # 1.3 K/uL (1.8-7.0); NEUT % 56.1 % (50.0-75.0); NRBC % 0.2 % (0.0-2.0); RBC 3.46 Mil/uL (4.40-5.90); RED CELL DISTRIBUTION WIDTH 19.2 % (11.5-14.5); WHITE BLOOD COUNT 2.4 K/uL (4.8-10.8)
[2019-01-15 07:02] LABS: ABG ALLEN TEST POS; ARTERIAL BLOOD GAS HCO3 22.7 mmol/L (21-28); ARTERIAL BLOOD GAS PCO2 37 mm/Hg (35-45); ARTERIAL BLOOD GAS PO2 31 mm/Hg (80-100)
[2019-01-15 07:10] LABS: ALB/GLOB RATIO 0.5 (1.0-2.1); ALBUMIN 2.7 g/dL (3.5-5.0); ALT/SGPT 19 U/L (21-72); AST/SGOT 51 U/L (17-59); BLOOD UREA NITROGEN 8 mg/dL (9-20); CALCIUM 8.6 mg/dl (8.6-10.4); GFR NON-AFRICAN AMERICAN > 60
[2019-01-15 07:21] LABS: B-TYPE NATRIURETIC PEPTIDE 242 pg/mL (0-900); INR 1.6; PARTIAL THROMBOPLASTIN TIME 35.4 SECONDS (21-34)
[2019-01-15 07:36] LABS: LIPASE 127 U/L (23-300)
[2019-01-15 08:07] LABS: SQUAMOUS EPITHIAL < 1 /hpf (0-5); URINE BILIRUBIN NEGATIVE (NEGATIVE); URINE BLOOD NEGATIVE (NEGATIVE); URINE CLARITY Clear (Clear); URINE COLOR Yellow (YELLOW); URINE GLUCOSE (UA) NORMAL (Normal); URINE LEUKOCYTE ESTERASE NEG Leu/uL (Negative); URINE PROTEIN NEGATIVE (NEGATIVE); URINE UROBILINOGEN NORMAL mg/dL (0.2-1.0)
--- NOTE | 2019-01-15 10:06 | CP.PCM.PN ---
Subjective - Date & Time of Evaluation Date of Evaluation: 01/15/19 Time of Evaluation: 10:06 - Subjective Subjective: 48 year old male with a past medical history of hypertension, anemia, pvd, hyperlipidemia and liver cirrhosis presents to the hospital after reporting shorntess of breath for the past couple of days. Patient states the shortness of breath is while ambulating and has to stop to catch his breath while walking. Patient denies taking any medications to improve symptoms. Patient also reports lower extremity edema located in his legs and thighs bilaterally. Of note, patient last month traveled to [facility] and did drink a couple of times while there. Patient denies any chest pain, headaches, dizziness, syncopal episodes, or any other complaints. PMHx: cirrhosis, HTN, HLD, PVD, anemia PSHx: appendectomy Allergies: NKDA Social: Former smoker, quit less than a month ago. Used to smoke 1 pack every 3- 4 days for the past year. Former alcoholic, quit 9 months ago but has drank for as long as he can remember. Denies drugs. Family Hx: Father with heart problems. Mother with asthma Objective - Vital Signs/Intake and Output Vital Signs (last 24 hours): Temp Pulse Resp BP Pulse Ox 97.4 F L 73 12 131/76 98 01/15/19 06:00 01/15/19 09:06 01/15/19 09:06 01/15/19 09:06 01/15/19 09:06 - Labs Labs: 01/15/19 06:54 01/15/19 06:54 PT 17.0 SECONDS (9.7-12.2) H 01/15/19 06:54 INR 1.6 01/15/19 06:54 APTT 35.4 SECONDS (21-34) H 01/15/19 06:54 - Head Exam Head Exam: ATRAUMATIC, NORMAL INSPECTION - Eye Exam Eye Exam: EOMI, Normal appearance, PERRL. absent: Periorbital swelling, Periorbital tenderness Pupil Exam: NORMAL ACCOMODATION, PERRL. absent: Unequal - ENT Exam ENT Exam: Mucous Membranes Moist, Normal Oropharynx - Respiratory Exam Respiratory Exam: Clear to Ausculation Bilateral, NORMAL BREATHING PATTERN. absent: Chest Wall Tenderness, Prolonged Expiratory Phase, Respiratory Distress - Cardiovascular Exam Cardiovascular Exam: REGULAR RHYTHM, +S1, +S2. absent: RRR - GI/Abdominal Exam GI & Abdominal Exam: Soft, Normal Bowel Sounds. absent: Rigid, Hyperactive Bowel Sounds - Back Exam Back Exam: NORMAL INSPECTION. absent: CVA tenderness (R), paraspinal tenderness - Neurological Exam Neurological Exam: Alert, Awake, CN II-XII Intact, Oriented x3 - Psychiatric Exam Psychiatric exam: Normal Affect, Normal Mood. absent: Depressed - Skin Skin Exam: Dry, Intact, Normal Color Assessment and Plan - Assessment and Plan (Free Text) Plan: 48yo male PMH hepatic encephalopathy, EtOH cirrhosis, HTN, HLD, Hx of TIA presents with alcohol induced acute chf exacerbation Plan: CHF Exacerbation Chest xray:Cardiomegaly/acute CHF. pro-BNP on admission: 242 EKG on admission: NSR @78bpm, Nonspecific Changes Last Echo:(01/02/18): LV mild dilation, EF 55-60%, Grade II relaxation abnormality, LA severely dilated, Mild MR, Mild TR, Mild pulm HTN Cardiology Dr. Levy consulted--> Help appreciated Medications: Lasix 40mg IVP DAILY Coreg 3.125mg PO BID Hyperammonemia/Hepatic encephalopathy Ammonia 141 Started on Lactulose 20 gm BID Rifaximin 550mg BID Dementia - home Namenda 10mg PO Daily PVD - home Cilostazol 100mg PO BID hx of EToh abuse -Last drink one month ago in [facility] Medications: Thiamine 100mg PO DAILY Multivitamin 1 tab po daily Folic Acid 1 mg PO DAILY NABIL PPx - DVT: Heparin 5000u sc q12 - GI: Protonix 40mg po daily - Diet: HHD Plan discussed with Attending Dr. Ozuna. Tushar Martinez, PGY2
--- NOTE | 2019-01-15 10:16 | RAD ---
Date of service: 01/15/2019 PROCEDURE: CHEST RADIOGRAPH, 1 VIEW HISTORY: SOB COMPARISON: 11/13/2018. FINDINGS: LUNGS: Pulmonary vascular congestion. PLEURA: No pneumothorax or pleural fluid seen. CARDIOVASCULAR: No aortic atherosclerotic calcification present. Cardiomegaly/CHF. OSSEOUS STRUCTURES: No significant abnormalities. Evidence of old healed posterior lateral left rib fractures. VISUALIZED UPPER ABDOMEN: Normal. OTHER FINDINGS: None. IMPRESSION: Cardiomegaly/acute CHF. Concordant results with the preliminary interpretation rendered by the emergency department physician procedure.
[2019-01-15] MEDS: Pantoprazole 40 mg EC Tab PO SCH (11:18)
--- NOTE | 2019-01-15 17:53 | CP.PCM.CON ---
History of Present Illness - History of Present Illness History of Present Illness: I was asked to see patient by Dr Ozuna. Patient seen 01/15/19 0118 Patient is a 48 year old male with HTN, liver cirrhosis hypercholesterolemia who presents with dyspnea. The patient has noted progressive dyspnea. He has liver cirrhosis but continues to drink. Echocardiogram last admission revealed normal left ventricular function. Troponin is negative and pro BNP is normal. Review of Systems - Constitutional Constitutional: absent: As Per HPI, Anorexia, Chills, Daytime Sleepiness, Excessive Sweating, Fatigue, Fever, Frequent Falls, Headache, Increased Appe tite, Lethargy, Malaise, Night Sweats, Snoring, Sleep Apnea, Weight Gain, Weight Loss, Weakness, Other - EENT Eyes: absent: As Per HPI, Blind Spots, Blurred Vision, Change in Vision, Decreased Night Vision, Diplopia, Discharge, Dry Eye, Exophthalmos, Floaters, Irritation, Itchy Eyes, Loss of Peripheral Vision, Pain, Photophobia, Requires Corrective Lenses, Sees Flashes, Spots in Vision, Tunnel Vision, Other Visual Disturbances, Loss of Vision, Other Ears: absent: As Per HPI, Decreased Hearing, Ear Discharge, Ear Pain, Tinnitus, Abnormal Hearing, Disequilibrium, Dizziness, Other Nose/Mouth/Throat: absent: As Per HPI, Epistaxis, Nasal Congestion, Nasal Discharge, Nasal Obstruction, Nasal Trauma, Nose Pain, Post Nasal Drip, Sinus Pain, Sinus Pressure, Bleeding Gums, Change in Voice, Dental Pain, Dry Mouth, Dysphagia, Halitosis, Hoarsness, Lip Swelling, Mouth Lesions, Mouth Pain, Odynophagia, Sore Throat, Throat Swelling, Tongue Swelling, Facial Pain, Neck Pain, Neck Mass, Other - Cardiovascular Cardiovascular: absent: As Per HPI, Acrocyanosis, Chest Pain, Chest Pain at Rest, Chest Pain with Activity, Claudication, Diaphoresis, Dyspnea, Dyspnea on Exertion, Edema, Irregular Heart Rhythm, Pain Radiating to Arm/Neck/Jaw, Leg Edema, Leg Ulcers, Lightheadedness, Orthopnea, Palpitations, Paroxysmal Nocturnal Dyspnea, Pedal Edema, Radiating Pain, Rapid Heart Rate, Slow Heart Rate, Syncope, Other - Respiratory Respiratory: Dyspnea - Gastrointestinal Gastrointestinal: absent: As Per HPI, Abdominal Pain, Belching, Bloating, Change in Bowel Habits, Change in Stool Character, Coffee Ground Emesis, Constipation, Cramping, Diarrhea, Dyspepsia, Dysphagia, Early Satiety, Excessive Flatus, Fecal Incontinence, Heartburn, Hematemesis, Hematochezia, Loose Stools, Melena, Nausea, Odynophagia, Temesmus, Vomiting, Other - Genitourinary Genitourinary: absent: As Per HPI, Change in Urinary Stream, Difficulty Urinating, Dysuria, Flank Pain, Hematuria, Pyuria, Nocturia, Urinary Incontinence, Urinary Frequency, Urinary Hesitance, Urinary Urgency, Voiding Freq/Small Amts, Freq UTI, Hx Renal/Bladder Calculi, Hx /Renal Surgery, Bladder Distension, Other - Musculoskeletal Musculoskeletal: absent: As Per HPI, Abnormal Gait, Arthralgias, Atrophy, Back Pain, Deformity, Joint Swelling, Limited Range of Motion, Loss of Height, Muscle Cramps, Muscle Weakness, Myalgias, Neck Pain, Numbness, Radiating Pain into Li mb, Stiffness, Tingling, Other - Integumentary Integumentary: absent: As Per HPI, Acne, Alopecia, Bleeding Lesions, Change in Hair, Change in Nails, Change in Pigmentation, Changing Lesions, Dry Skin, Erythema, Furuncle, Hirsutism, Lesions, New Lesions, Non-Healing Lesions, Photosensitivity, Pruritus, Rash, Skin Pain, Skin Ulcer, Sores, Striae, Swelling, Unusual Bruising, Wounds, Jaundice, Other - Neurological Neurological: absent: As Per HPI, Abnormal Gait, Abnormal Hearing, Abnormal Movements, Abnormal Speech, Behavioral Changes, Burning Sensations, Confusion, Convulsions, Disequilibrium, Dizziness, Numbness, Focal Weakness, Frequent Falls, Headaches, Lack of Coordination, Loss of Vision, Memory Loss, Paresthes ias, Radicular Pain, Restless Legs, Sensory Deficit, Syncope, Tingling, Tremor, Vertigo, Weakness, Other Visual Disturbances, Other - Psychiatric Psychiatric: absent: As Per HPI, Abnormal Sleep Pattern, Anhedonia, Anxiety, Auditory Hallucinations, Behavioral Changes, Change in Appetite, Change in Libido, Confusion, Depression, Difficulty Concentrating, Hallucinations, Homicidal Ideation, Hopelessness, Irritability, Memory Loss, Mood Swings, Panic Attacks, Paranoia, Suicidal Ideation, Visual Hallucinations, Tactile Hallucinations, Other - Endocrine Endocrine: absent: As Per HPI, Change in Body Appearance, Change in Libido, Cold Intolorance, Deepening of Voice, Excessive Sweating, Fatigue, Flushing, Heat Intolorance, Increase in Ring/Shoe/Hat Size, Palpitations, Polydipsia, Polyphagia, Polyuria, Other - Hematologic/Lymphatic Hematologic: absent: As Per HPI, Easy Bleeding, Easy Bruising, Lymphadenopathy, Other Past Patient History - Infectious Disease Hx of Infectious Diseases: None - Tetanus Immunizations Tetanus Immunization: Unknown - Past Medical History & Family History Past Medical History?: Yes - Past Social History Smoking Status: Former Smoker - CARDIAC Hx Atrial Fibrillation: Yes Hx Cardia Arrhythmia: Yes Hx Congestive Heart Failure: Yes Hx Hypertension: Yes Hx Pacemaker: No - PULMONARY Hx Asthma: Yes Hx Chronic Obstructive Pulmonary Disease (COPD): Yes Hx Pneumonia: Yes - NEUROLOGICAL Hx Seizures: No Hx Transient Ischemic Attacks (TIA): Yes - HEENT Hx HEENT Problems: No - RENAL Hx Chronic Kidney Disease: No - HEMATOLOGICAL/ONCOLOGICAL Hx Anemia: Yes Hx Human Immunodeficiency Virus (HIV): No - INTEGUMENTARY Hx Dermatological Problems: No - MUSCULOSKELETAL/RHEUMATOLOGICAL Hx Arthritis: Yes - GASTROINTESTINAL Hx Gall Bladder Disease: Yes Hx Pancreatitis: Yes - GENITOURINARY/GYNECOLOGICAL Hx Sexually Transmitted Disorders: No - PSYCHIATRIC Hx Anxiety: Yes Hx Bipolar Disorder: No Hx Depression: No Hx Schizophrenia: Yes Hx Substance Use: No - SURGICAL HISTORY Hx Appendectomy: Yes Hx Cholecystectomy: Yes Hx Coronary Artery Bypass Graft: No Hx Coronary Stent: No Hx Tonsillectomy: No - ANESTHESIA Hx Anesthesia: Yes Hx Anesthesia Reactions: No Hx Malignant Hyperthermia: No Meds Allergies/Adverse Reactions: Allergies Allergy/AdvReac Type Severity Reaction Status Date / Time No Known Allergies Allergy Verified 11/13/18 08:44 - Medications Medications: Current Medications Carvedilol (Coreg) 3.125 mg PO BID [facility] Cilostazol (Pletal) 100 mg PO Q12 [facility] Enoxaparin Sodium (Lovenox) 40 mg SC DAILY [facility] Folic Acid (Folic Acid) 1 mg PO DAILY [facility] Last Admin: 01/15/19 11:18 Dose: 1 mg Furosemide (Lasix) 40 mg IVP DAILY [facility] Last Admin: 01/15/19 11:17 Dose: 40 mg Lactulose (Enulose) 20 gm PO BID [facility] Lorazepam (Ativan) 1 mg IVP Q3H PRN PRN Reason: Symptoms of alcohol withdrawl Magnesium Oxide (Mag-Ox) 800 mg PO TID [facility] Memantine (Namenda) 10 mg PO DAILY [facility] Multivitamins (Hexavitamin) 1 tab PO DAILY [facility] Pantoprazole Sodium (Protonix Ec Tab) 40 mg PO DAILY [facility] Last Admin: 01/15/19 11:18 Dose: 40 mg Rifaximin (Xifaxan) 550 mg PO Q12 [facility]; Protocol Spironolactone (Aldactone) 25 mg PO DAILY [facility] Thiamine HCl (Vitamin B1 Tab) 100 mg PO DAILY [facility] Physical Exam - Constitutional Appears: Chronically Ill - Head Exam Head Exam: NORMAL INSPECTION - Eye Exam Eye Exam: Normal appearance - ENT Exam ENT Exam: Mucous Membranes Moist - Neck Exam Neck exam: Positive for: Full Rom, Normal Inspection. Negative for: Lymphadenopathy - Respiratory Exam Respiratory Exam: NORMAL BREATHING PATTERN - Cardiovascular Exam Cardiovascular Exam: REGULAR RHYTHM - GI/Abdominal Exam GI & Abdominal Exam: Normal Bowel Sounds, Soft - Rectal Exam Rectal Exam: Deferred - Extremities Exam Extremities exam: Positive for: normal inspection, pedal edema - Back Exam Back exam: NORMAL INSPECTION - Neurological Exam Neurological exam: Alert, Oriented x3 - Psychiatric Exam Psychiatric exam: Normal Affect - Skin Skin Exam: Normal Color Results - Vital Signs Recent Vital Signs: Last Vital Signs Temp 98 F 01/15/19 15:39 Pulse 77 01/15/19 15:39 Resp 20 01/15/19 15:39 BP 123/73 01/15/19 15:39 Pulse Ox 98 01/15/19 15:39 - Labs Result Diagrams: 01/15/19 06:54 01/15/19 06:54 Labs: Laboratory Results - last 24 hr 01/15/19 01/15/19 01/15/19 06:54 06:54 06:54 WBC 2.4 L RBC 3.46 L Hgb 10.5 L Hct 31.8 L MCV 91.8 D MCH 30.3 MCHC 32.9 L RDW 19.2 H Plt Count 162 MPV 7.9 Neut % (Auto) 56.1 Lymph % (Auto) 29.1 Borden % (Auto) 10.4 H Eos % (Auto) 3.3 Baso % (Auto) 1.1 Neut # (Auto) 1.3 L Lymph # (Auto) 0.7 L Borden # (Auto) 0.2 Eos # (Auto) 0.1 Baso # (Auto) 0.0 PT 17.0 H INR 1.6 APTT 35.4 H Puncture Site pCO2 pO2 HCO3 ABG pH ABG Total CO2 ABG O2 Saturation ABG Base Excess Eric Test ABG Potassium Glucose Lactate Blood Gas Comments Crit Value Called To Crit Value Called By Crit Value Read Back Blood Gas Notified Time Sodium 136 Potassium 3.9 Chloride 103 Carbon Dioxide 27 Anion Gap 9 L BUN 8 L Creatinine 0.6 L Est GFR ( Amer) > 60 Est GFR (Non-Af Amer) > 60 Random Glucose 95 Calcium 8.6 Magnesium 1.2 L Total Bilirubin 1.1 AST 51 ALT 19 L D Alkaline Phosphatase 175 H D Ammonia Troponin I < 0.0120 NT-Pro-B Natriuret Pep 242 Total Protein 7.6 Albumin 2.7 L D Globulin 5.0 H Albumin/Globulin Ratio 0.5 L Lipase 127 Arterial Blood Potassium Urine Color Urine Clarity Urine pH Ur Specific Strunk Urine Protein Urine Glucose (UA) Urine Ketones Urine Blood Urine Nitrate Urine Bilirubin Urine Urobilinogen Ur Leukocyte Esterase Urine WBC (Auto) Urine RBC (Auto) Ur Squamous Epith Cells Alcohol, Quantitative < 10 01/15/19 01/15/19 01/15/19 06:56 07:59 12:05 WBC RBC Hgb Hct MCV MCH MCHC RDW Plt Count MPV Neut % (Auto) Lymph % (Auto) Borden % (Auto) Eos % (Auto) Baso % (Auto) Neut # (Auto) Lymph # (Auto) Borden # (Auto) Eos # (Auto) Baso # (Auto) PT INR APTT Puncture Site Rr pCO2 37 pO2 31 L* HCO3 22.7 ABG pH 7.40 ABG Total CO2 24.0 ABG O2 Saturation 67.0 L ABG Base Excess -1.5 Eric Test Pos ABG Potassium 3.4 L Glucose 65 L Lactate 0.9 Blood Gas Comments Vbg Crit Value Called To tiarra Ellsworth Crit Value Called By nathan Balderas Crit Value Read Back Y Blood Gas Notified Time 702 Sodium 141.0 Potassium Chloride 114.0 H Carbon Dioxide Anion Gap BUN Creatinine Est GFR ( Amer) Est GFR (Non-Af Amer) Random Glucose Calcium Magnesium Total Bilirubin AST ALT Alkaline Phosphatase Ammonia 141 H D Troponin I NT-Pro-B Natriuret Pep Total Protein Albumin Globulin Albumin/Globulin Ratio Lipase Arterial Blood Potassium 3.4 L Urine Color Yellow Urine Clarity Clear Urine pH 7.0 Ur Specific Strunk 1.011 Urine Protein Negative Urine Glucose (UA) Normal Urine Ketones Negative Urine Blood Negative Urine Nitrate Negative Urine Bilirubin Negative Urine Urobilinogen Normal Ur Leukocyte Esterase Neg Urine WBC (Auto) < 1 Urine RBC (Auto) < 1 Ur Squamous Epith Cells < 1 Alcohol, Quantitative - EKG Data EKG Interpreted by: Myself Assessment & Plan (1) Chronic congestive heart failure Assessment and Plan: patient has chronic diastolic dysfunction. I discussed medical therapy. blood pressure control. 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
[2019-01-15] MEDS: Magnesium Oxide 400 mg Tab UD PO SCH (18:09)
[2019-01-15] MEDS: Cilostazol 100 mg Tab UD PO SCH (21:39)
[2019-01-16 07:37] LABS: BASO % 0.5 % (0.0-2.0); EOS # 0.1 K/uL (0.0-0.7); EOS % 4.3 % (0.0-4.0); HEMOGLOBIN 10.5 g/dL (12.0-18.0); LYMPH # 0.8 K/uL (1.0-4.3); LYMPH % 32.3 % (20.0-40.0); MEAN CELL VOLUME 90.5 fL (80.0-94.0); MEAN CORPUSCULAR HEMOGLOBIN 30.1 pg (27.0-31.0); MEAN CORPUSCULAR HGB CONC 33.3 g/dL (33.0-37.0); MEAN PLATELET VOLUME 8.2 fL (7.2-11.7); MONO # 0.4 K/uL (0.0-0.8); NEUT # 1.1 K/uL (1.8-7.0); NEUT % 45.9 % (50.0-75.0); NRBC % 0.1 % (0.0-2.0); RBC 3.48 Mil/uL (4.40-5.90); RED CELL DISTRIBUTION WIDTH 18.7 % (11.5-14.5); WHITE BLOOD COUNT 2.4 K/uL (4.8-10.8)
--- NOTE | 2019-01-16 07:37 | CP.PCM.PN ---
Subjective - Date & Time of Evaluation Date of Evaluation: 01/16/19 Time of Evaluation: 07:36 - Subjective Subjective: PGY-[address] Ozuna Service Patient seen and examined at bedside. Per nursing no acute events occurred overnight .Patient reports feeling better and a improvement in shortness of breath. Patient denies any chest pain, headaches, dizziness, palpitations, syncopal episodes, or any other complaints. Objective - Vital Signs/Intake and Output Vital Signs (last 24 hours): Temp Pulse Resp BP Pulse Ox 97.8 F 88 20 120/73 98 01/15/19 23:00 01/15/19 23:00 01/15/19 23:00 01/15/19 23:00 01/15/19 23:00 Intake and Output: 01/16/19 01/16/19 06:59 18:59 Output Total 800 Balance -800 - Medications Medications: Current Medications Carvedilol (Coreg) 3.125 mg PO BID [facility] Last Admin: 01/15/19 18:09 Dose: 3.125 mg Cilostazol (Pletal) 100 mg PO Q12 [facility] Last Admin: 01/15/19 21:39 Dose: 100 mg Enoxaparin Sodium (Lovenox) 40 mg SC DAILY [facility] Folic Acid (Folic Acid) 1 mg PO DAILY [facility] Last Admin: 01/15/19 11:18 Dose: 1 mg Furosemide (Lasix) 40 mg IVP DAILY [facility] Last Admin: 01/15/19 11:17 Dose: 40 mg Lactulose (Enulose) 20 gm PO BID [facility] Last Admin: 01/15/19 18:09 Dose: 20 gm Lorazepam (Ativan) 1 mg IVP Q3H PRN PRN Reason: Symptoms of alcohol withdrawl Magnesium Oxide (Mag-Ox) 800 mg PO TID [facility] Last Admin: 01/15/19 18:09 Dose: 800 mg Memantine (Namenda) 10 mg PO DAILY [facility] Multivitamins (Hexavitamin) 1 tab PO DAILY [facility] Pantoprazole Sodium (Protonix Ec Tab) 40 mg PO DAILY [facility] Last Admin: 01/15/19 11:18 Dose: 40 mg Rifaximin (Xifaxan) 550 mg PO Q12 [facility]; Protocol Last Admin: 01/15/19 21:39 Dose: 550 mg Spironolactone (Aldactone) 25 mg PO DAILY [facility] Last Admin: 01/15/19 18:10 Dose: 25 mg Thiamine HCl (Vitamin B1 Tab) 100 mg PO DAILY [facility] - Labs Labs: 01/15/19 06:54 01/15/19 06:54 PT 17.0 SECONDS (9.7-12.2) H 01/15/19 06:54 INR 1.6 01/15/19 06:54 APTT 35.4 SECONDS (21-34) H 01/15/19 06:54 - Head Exam Head Exam: ATRAUMATIC, NORMAL INSPECTION - Eye Exam Eye Exam: EOMI, Normal appearance, PERRL. absent: Periorbital tenderness Pupil Exam: NORMAL ACCOMODATION, PERRL. absent: Irregular - ENT Exam ENT Exam: Mucous Membranes Moist, Normal Oropharynx - Respiratory Exam Respiratory Exam: Clear to Ausculation Bilateral, NORMAL BREATHING PATTERN. absent: Chest Wall Tenderness, Prolonged Expiratory Phase, Respiratory Distress - Cardiovascular Exam Cardiovascular Exam: REGULAR RHYTHM, +S1, +S2 - GI/Abdominal Exam GI & Abdominal Exam: Soft, Normal Bowel Sounds. absent: Rigid, Hyperactive Bowel Sounds - Neurological Exam Neurological Exam: Awake, CN II-XII Intact, Normal Gait, Oriented x3 - Psychiatric Exam Psychiatric exam: Normal Affect, Normal Mood. absent: Anxious, Depressed - Skin Skin Exam: Dry, Intact, Normal Color Assessment and Plan - Assessment and Plan (Free Text) Plan: 48yo male PMH hepatic encephalopathy, EtOH cirrhosis, HTN, HLD, Hx of TIA presents with alcohol induced acute chf exacerbation Plan: CHF Exacerbation (Diastolic) Chest xray:Cardiomegaly/acute CHF. pro-BNP on admission: 242 EKG on admission: NSR @78bpm, Nonspecific Changes Last Echo:(01/02/18): LV mild dilation, EF 55-60%, Grade II relaxation abnormality, LA severely dilated, Mild MR, Mild TR, Mild pulm HTN Cardiology Dr. Levy consulted--> Help appreciated :patient has chronic diastolic dysfunction. I discussed medical therapy. blood pressure control. 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 Plan discussed with Attending Dr. Ozuna. Tushar Martinez, PGY2
--- NOTE | 2019-01-16 07:41 | CP.PCM.PN ---
Subjective - Date & Time of Evaluation Date of Evaluation: 01/16/19 Time of Evaluation: 07:39 Objective - Vital Signs/Intake and Output Vital Signs (last 24 hours): Temp Pulse Resp BP Pulse Ox 97.8 F 88 20 120/73 98 01/15/19 23:00 01/15/19 23:00 01/15/19 23:00 01/15/19 23:00 01/15/19 23:00 Intake and Output: 01/16/19 01/16/19 06:59 18:59 Output Total 800 Balance -800 - Medications Medications: Current Medications Carvedilol (Coreg) 3.125 mg PO BID [facility] Last Admin: 01/15/19 18:09 Dose: 3.125 mg Cilostazol (Pletal) 100 mg PO Q12 [facility] Last Admin: 01/15/19 21:39 Dose: 100 mg Enoxaparin Sodium (Lovenox) 40 mg SC DAILY [facility] Folic Acid (Folic Acid) 1 mg PO DAILY [facility] Last Admin: 01/15/19 11:18 Dose: 1 mg Furosemide (Lasix) 40 mg IVP DAILY [facility] Last Admin: 01/15/19 11:17 Dose: 40 mg Lactulose (Enulose) 20 gm PO BID [facility] Last Admin: 01/15/19 18:09 Dose: 20 gm Lorazepam (Ativan) 1 mg IVP Q3H PRN PRN Reason: Symptoms of alcohol withdrawl Magnesium Oxide (Mag-Ox) 800 mg PO TID [facility] Last Admin: 01/15/19 18:09 Dose: 800 mg Memantine (Namenda) 10 mg PO DAILY [facility] Multivitamins (Hexavitamin) 1 tab PO DAILY [facility] Pantoprazole Sodium (Protonix Ec Tab) 40 mg PO DAILY [facility] Last Admin: 01/15/19 11:18 Dose: 40 mg Rifaximin (Xifaxan) 550 mg PO Q12 [facility]; Protocol Last Admin: 01/15/19 21:39 Dose: 550 mg Spironolactone (Aldactone) 25 mg PO DAILY [facility] Last Admin: 01/15/19 18:10 Dose: 25 mg Thiamine HCl (Vitamin B1 Tab) 100 mg PO DAILY [facility] - Labs Labs: 01/15/19 06:54 01/15/19 06:54 PT 17.0 SECONDS (9.7-12.2) H 05/20/19 06:54 INR 1.6 01/15/19 06:54 APTT 35.4 SECONDS (21-34) H 01/15/19 06:54 - Head Exam Head Exam: ATRAUMATIC, NORMAL INSPECTION - Eye Exam Eye Exam: EOMI, Normal appearance, PERRL. absent: Periorbital tenderness Pupil Exam: NORMAL ACCOMODATION, PERRL. absent: Irregular, Unequal - ENT Exam ENT Exam: Mucous Membranes Moist, Normal Oropharynx - Respiratory Exam Respiratory Exam: Clear to Ausculation Bilateral, NORMAL BREATHING PATTERN. absent: Prolonged Expiratory Phase, Respiratory Distress - Cardiovascular Exam Cardiovascular Exam: REGULAR RHYTHM, +S1, +S2 - GI/Abdominal Exam GI & Abdominal Exam: Soft, Normal Bowel Sounds. absent: Rigid, Hyperactive Bowel Sounds - Back Exam Back Exam: NORMAL INSPECTION. absent: CVA tenderness (R), paraspinal tenderness - Neurological Exam Neurological Exam: Awake, CN II-XII Intact, Oriented x3 - Psychiatric Exam Psychiatric exam: Normal Affect, Normal Mood. absent: Depressed - Skin Skin Exam: Dry, Intact, Normal Color, Warm
[2019-01-16 07:48] LABS: ALB/GLOB RATIO 0.6 (1.0-2.1); ALBUMIN 2.7 g/dL (3.5-5.0); ALT/SGPT 29 U/L (21-72); AST/SGOT 51 U/L (17-59); BLOOD UREA NITROGEN 10 mg/dL (9-20); CALCIUM 8.6 mg/dl (8.6-10.4); GFR NON-AFRICAN AMERICAN > 60
[2019-01-16] MEDS: Enoxaparin 40 mg Syringe SC SCH (09:34)
[2019-01-16] MEDS: Multiple Vitamins Tab PO SCH (09:34)
[2019-01-16] MEDS: Pantoprazole 40 mg EC Tab PO SCH (09:34)
[2019-01-16] MEDS: Magnesium Oxide 400 mg Tab UD PO SCH ×3 (09:34→17:21)
[2019-01-16] MEDS: Cilostazol 100 mg Tab UD PO SCH ×2 (09:34→21:07)
--- NOTE | 2019-01-16 21:09 | CARD ---
APPROVED REPORT Date of service: 01/15/2019 EKG Measurement Heart [id number] [id number] <Conclusion> Sinus rhythm with premature atrial complexes Otherwise normal ECG
--- NOTE | 2019-01-17 07:32 | CP.PCM.PN ---
Subjective - Date & Time of Evaluation Date of Evaluation: 01/17/19 Time of Evaluation: 07:27 - Subjective Subjective: Progress Note for Dr. Ozuna Patient was seen and examined at bedside in no acute distress. Patient reports feeling better and asking to go home. He denies chest pain, palpitations, dyspnea, cough, n/v, headaches, fevers, abdominal pain, leg pain. No acute events overnight. Objective - Vital Signs/Intake and Output Vital Signs (last 24 hours): Temp Pulse Resp BP Pulse Ox 98.0 F 78 20 109/53 L 98 01/16/19 23:15 01/17/19 00:01 01/16/19 23:15 01/16/19 23:15 01/17/19 00:01 Intake and Output: 01/17/19 01/17/19 06:59 18:59 Output Total 600 Balance -600 - Medications Medications: Current Medications Carvedilol (Coreg) 3.125 mg PO BID [facility] Last Admin: 01/16/19 17:21 Dose: 3.125 mg Cilostazol (Pletal) 100 mg PO Q12 [facility] Last Admin: 01/16/19 21:07 Dose: 100 mg Enoxaparin Sodium (Lovenox) 40 mg SC DAILY [facility] Last Admin: 01/16/19 09:34 Dose: 40 mg Folic Acid (Folic Acid) 1 mg PO DAILY [facility] Last Admin: 01/16/19 09:34 Dose: 1 mg Furosemide (Lasix) 40 mg IVP DAILY [facility] Last Admin: 01/16/19 09:34 Dose: 40 mg Lactulose (Enulose) 20 gm PO BID [facility] Last Admin: 01/16/19 17:21 Dose: 20 gm Lorazepam (Ativan) 1 mg IVP Q3H PRN PRN Reason: Symptoms of alcohol withdrawl Magnesium Oxide (Mag-Ox) 800 mg PO TID [facility] Last Admin: 01/16/19 17:21 Dose: 800 mg Memantine (Namenda) 10 mg PO DAILY [facility] Last Admin: 01/16/19 09:34 Dose: 10 mg Multivitamins (Hexavitamin) 1 tab PO DAILY [facility] Last Admin: 01/16/19 09:34 Dose: 1 tab Pantoprazole Sodium (Protonix Ec Tab) 40 mg PO DAILY [facility] Last Admin: 01/16/19 09:34 Dose: 40 mg Rifaximin (Xifaxan) 550 mg PO Q12 [facility]; Protocol Last Admin: 01/16/19 21:07 Dose: 550 mg Spironolactone (Aldactone) 25 mg PO DAILY [facility] Last Admin: 01/16/19 09:34 Dose: 25 mg Thiamine HCl (Vitamin B1 Tab) 100 mg PO DAILY [facility] Last Admin: 01/16/19 09:34 Dose: 100 mg - Labs Labs: 01/16/19 07:28 01/16/19 07:28 PT 17.0 SECONDS (9.7-12.2) H 01/15/19 06:54 INR 1.6 01/15/19 06:54 APTT 35.4 SECONDS (21-34) H 01/15/19 06:54 - Constitutional Appears: No Acute Distress - Head Exam Head Exam: ATRAUMATIC, NORMAL INSPECTION - Eye Exam Eye Exam: EOMI - ENT Exam ENT Exam: Mucous Membranes Moist - Respiratory Exam Respiratory Exam: Clear to Ausculation Bilateral, NORMAL BREATHING PATTERN. a bsent: Rales, Rhonchi, Wheezes, Respiratory Distress - Cardiovascular Exam Cardiovascular Exam: REGULAR RHYTHM, +S1, +S2 - GI/Abdominal Exam GI & Abdominal Exam: Soft, Normal Bowel Sounds. absent: Distended, Firm, Tenderness - Extremities Exam Extremities Exam: Pedal Edema. absent: Tenderness - Neurological Exam Neurological Exam: Alert, Awake, Oriented x3 - Psychiatric Exam Psychiatric exam: Normal Affect, Normal Mood - Skin Skin Exam: Dry, Warm Assessment and Plan - Assessment and Plan (Free Text) Plan: 48yo male PMH hepatic encephalopathy, EtOH cirrhosis, HTN, HLD, Hx of TIA presents with alcohol induced acute chf exacerbation CHF Exacerbation (Diastolic) - Chest xray:Cardiomegaly/acute CHF. - pro-BNP on admission: 242 - EKG on admission: NSR @78bpm, Nonspecific Changes - Last Echo:(01/02/18): LV mild dilation, EF 55-60%, Grade II relaxation abnorm ality, LA severely dilated, Mild MR, Mild TR, Mild pulm HTN - Cardiology Dr. Levy consulted--> Help appreciated * patient has chronic diastolic dysfunction. I discussed medical therapy. blood pressure control. 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, but LE edema likley due to cirrhosis -Medications: * Lasix 40mg IVP DAILY * Coreg 3.125mg PO BID Hyperammonemia/Hepatic encephalopathy - Ammonia 141 - Started on Lactulose 20 gm BID - Rifaximin 550mg BID Dementia - Continue home med: Namenda 10mg PO Daily P[facility] - Continue home med: Cilostazol 100mg PO BID Hx of EToh abuse - Last drink one month ago in [facility] - Medications: * Thiamine 100mg PO DAILY * Multivitamin 1 tab po daily * Folic Acid 1 mg PO DAILY [facility] PPx - DVT: Heparin 5000u sc q12 - GI: Protonix 40mg po daily - Diet: HHD - PT/OT-- DC to home, recommends PT Patient is stable for discharge to home per Dr. Ozuna. Patient must continue home medications. Refills were sent to patient's referred pharmacy. Patient must follow up with PMD, Dr. Ozuna, within one week of discharge. If symptoms worsen or reoccur, patient should return to the nearest ER. Case discussed with Dr. Laith Isaac, PGY2
--- NOTE | 2019-01-17 07:54 | HP ---
HISTORY OF PRESENT ILLNESS: The patient came to the hospital with shortness of breath, abdominal distention, extremity swelling. The patient has heart failure and liver disease. The patient is noncompliant with medications. PHYSICAL EXAMINATION: GENERAL: The patient is awake, alert, and oriented. VITAL SIGNS: Temperature 98, pulse 90. HEENT: Within normal limits. NECK: Supple. CHEST: Symmetric. HEART: Regular. ABDOMEN: Distended. EXTREMITIES: There are chronic changes and healing ulcer there. IMPRESSION AND PLAN: The patient suffers from CT of the liver and spleen. The patient is to get bed rest, supportive care, diuresis. Marisa Ozuna MD
[2019-01-17 07:59] VITALS: RESP 18; TEMP 97.6
[2019-01-17 08:16] LABS: BASO % 0.5 % (0.0-2.0); EOS # 0.1 K/uL (0.0-0.7); HEMOGLOBIN 10.3 g/dL (12.0-18.0); LYMPH # 0.9 K/uL (1.0-4.3); MEAN CELL VOLUME 89.9 fL (80.0-94.0); MEAN CORPUSCULAR HEMOGLOBIN 29.9 pg (27.0-31.0); MEAN CORPUSCULAR HGB CONC 33.3 g/dL (33.0-37.0); MONO # 0.5 K/uL (0.0-0.8); MONO % 17.3 % (0.0-10.0); NEUT # 1.3 K/uL (1.8-7.0); NEUT % 47.2 % (50.0-75.0); NRBC % 0.1 % (0.0-2.0); RBC 3.43 Mil/uL (4.40-5.90); WHITE BLOOD COUNT 2.8 K/uL (4.8-10.8)
[2019-01-17 08:28] LABS: ALB/GLOB RATIO 0.5 (1.0-2.1); ALBUMIN 2.7 g/dL (3.5-5.0); ALT/SGPT 27 U/L (21-72); AST/SGOT 50 U/L (17-59); BLOOD UREA NITROGEN 9 mg/dL (9-20); CALCIUM 8.5 mg/dl (8.6-10.4); GFR NON-AFRICAN AMERICAN > 60
[2019-01-17 08:41] VITALS: PULSE 81
[2019-01-17] MEDS: Pantoprazole 40 mg EC Tab PO SCH (09:12)
[2019-01-17] MEDS: Magnesium Oxide 400 mg Tab UD PO SCH (09:13)
[2019-01-17] MEDS: Multiple Vitamins Tab PO SCH (09:14)
[2019-01-17] MEDS: Enoxaparin 40 mg Syringe SC SCH (09:14)
[2019-01-17 09:19] VITALS: BP 123/76
[2019-01-17] MEDS: Cilostazol 100 mg Tab UD PO SCH (09:22)
[2019-01-17 11:45] VITALS: O2SAT 98
== END 2019-01-17 11:51 | disposition home or self-care (01) ==
LOC: C.ER 05:53 → C.9E 08:53 → C.5S 09:21
PROVIDERS: ADMIT Internal Medicine Pulmonary Disease; ATTEND Internal Medicine Pulmonary Disease
DX: I11.0 Hypertensive heart disease with heart failure (principal); I50.33 Acute on chronic diastolic (congestive) heart failure; I48.91 Unspecified atrial fibrillation; J44.9 Chronic obstructive pulmonary disease, unspecified; E78.5 Hyperlipidemia, unspecified; I73.9 Peripheral vascular disease, unspecified; E78.00 Pure hypercholesterolemia, unspecified; F20.9 Schizophrenia, unspecified; Z86.73 Personal history of transient ischemic attack (TIA), and cerebral infarction without residual deficits; Z87.891 Personal history of nicotine dependence; Z87.01 Personal history of pneumonia (recurrent); Z90.49 Acquired absence of other specified parts of digestive tract; Z91.14 Patient's other noncompliance with medication regimen; Z82.5 Family history of asthma and other chronic lower respiratory diseases
CPT/HCPCS: 36415; 71045; 80053; 81001; 82140; 82803; 83690; 83735; 83880; 84100; 84484; 85025; 85610; 85730; 87040; 93005; 97116; 97161; 97166; 97530; 99285; G0378; G0480; G8978; G8979; G8987; G8988; J1650; J1940